=== PATIENT | male | born 1950 | race Caucasian/White ===

== ENCOUNTER 2023-01-08 06:34 | Emergency (ER) | payer OTHER, SELFPAY ==
[2023-01-08 07:07] VITALS: BP 222/133; PULSE 53; RESP 16; TEMP 36.6; O2SAT 99; BMI 26.9
--- NOTE | 2023-01-08 07:35 | W.ED.GENADLT ---
HPI - General Adult General: Chief complaint: General Medical Stated complaint: hasn't slept in 6 days Time Seen by Provider: 01/08/23 07:05 History of Present Illness: Presents to the ER with complaints of not sleeping in the last 6 days. Patient has been has Lyrica at this entire time. Patient usually gets it from mail order and it has not arrived yet. Patient is recently moved down here from [place]. Patient has had this happen before. He thinks he is on 50 mg or capsule. Review of Systems General: Reports: 10 or more systems reviewed and unremarkable except in HPI and below Physical Exam Const: COMMON NORMALS: no acute distress, average body habitus, patient oriented x3, no limitations, healthy appearing, alert and well nourished HENMT: COMMON NORMALS: normocephalic, atraumatic, hearing grossly normal bilaterally, external ears normal, Normal nasal mucous membranes and turbinates present and oropharynx normal HEAD & SCALP: normocephalic and atraumatic NOSE: Normal nasal mucous membranes and turbinates present EXTERNAL EAR: Yes external ears normal Eye: COMMON NORMALS: Equal, round and reactive pupils present, EOMs intact bilaterally, conjunctivae normal and no scleral icterus CONJUNCTIVA: Yes conjunctivae normal PUPIL: Yes Equal, round and reactive pupils present Neck/C-Spine: COMMON NORMALS: full ROM, no lymphadenopathy, supple, no meningeal signs, no JVD and Thyroid normal THYROID: Thyroid normal Chest: COMMONS NORMALS: normal inspection of the chest and normal palpation of entire chest wall Resp: COMMON NORMALS: normal respiratory effort, No retractions, No use of accessory muscles and clear to auscultation bilaterally AUSCULTATION: clear to auscultation bilaterally Cardio: COMMON NORMALS: no JVD, regular rate, regular rhythm, S1 normal heart sound present, S2 normal heart sound present, No gallops present (Cardio), No clicks present (Cardio) and No murmurs present (Cardio) RATE: regular rate RHYTHM: regular rhythm HEART SOUNDS: S1 normal heart sound present and S2 normal heart sound present GI: COMMON NORMALS: Normal to inspection, nondistended, normoactive bowel sounds present, Soft to palpation, non-tender, No hepatosplenomegaly present and no masses PALPATION: Yes Soft to palpation and Yes No hepatosplenomegaly present Neuro: COMMON NORMALS: patient oriented x3 SENSORIUM/ORIENTATION: Yes alert MENINGEAL SIGNS: Yes no meningeal signs Course Vital Signs: Vital signs: Vital Signs Temperature 97.9 F 01/08/23 07:07 Pulse Rate 53 L 01/08/23 07:07 Respiratory Rate 16 01/08/23 07:07 Blood Pressure 222/133 01/08/23 07:07 Pulse Oximetry 99 01/08/23 07:07 Oxygen Delivery Me thod Room Air 01/08/23 07:07 MDM - General Adult Medical Decision Making Presents to the ER with complaints of not sleeping in 6 days secondary to being out of his Lyrica. Patient says if he gets his Lyrica everything will be okay. Patient was extremely hypertensive at 222/133. Patient be given clonidine 0.2 and Lyrica 50 mg here in ER. Patient be discharged with a prescription for Lyrica for for the next 7 days 1 p.o. twice daily Differential Diagnosis Ran out of medicine. Hypertension Medical Records I reviewed the patient's medical records. Lab Data I reviewed the patient's lab results. Discharge Plan Discharge Patient Disposition: Home Clinical Impression: Medication refill, Hypertension Condition: Stable Prescriptions: New pregabalin [Lyrica] 50 mg capsule 50 mg PO BID Qty: 14 0RF Discharge Orders: Discharge ED (Routine); Ordered 01/08/23 Ordered By: Compa Jorge Patient Instructions: Medicine Refill (ED) Activity Restrictions/Additional Instructions: You have been provided 7 days worth of your Lyrica as a refill through the ER. This should get you by until your mail order comes in. Please follow-up with your family practice doctor for more refills as needed. Keep an eye on your blood pressure as it was extremely elevated in ER. Coding Level of Care Code ED Cooler Deliverer for Obey Ochoa
[2023-01-08 07:44] VITALS: PULSE 89; RESP 18; TEMP 36.6; O2SAT 96
[2023-01-08 07:56] VITALS: BP 212/98
[2023-01-08] MEDS: cloNIDine 0.1 mg Tablet 0.2 MG PO (07:56)
[2023-01-08] MEDS: pregabalin 50 mg Capsule PO (07:56)
[2023-01-08 08:02] VITALS: BP 171/83; PULSE 59; RESP 18; TEMP 36.6; O2SAT 96
== END 2023-01-08 08:05 | disposition home or self-care (01) ==
PROVIDERS: Emergency Provider Emergency Medicine
DX: Z76.0 Encounter for issue of repeat prescription (principal); I10 Essential (primary) hypertension
CPT/HCPCS: 99283

== ENCOUNTER 2023-03-09 09:54 | Outpatient (CLI) | payer MEDICARE, SELFPAY ==
--- NOTE | 2023-03-09 10:42 | XR_ITS ---
WS: [id number] Exam: XR lumbar spine f/e only [id number] Date/Time of Exam: 03/09/2023 10:43 AM Reason For Exam: Postlaminectomy No significant flexion or extension instability. Advanced disc degeneration at all levels with marked spondylosis. There are prominent posterior osteophytes at L4-5 and L5-S1 as well as L3-4. This might cause some spinal canal stenosis. Mild degenerative retrolisthesis of L3 on L4. Limited lumbar motio n in flexion and extension. Advanced facet arthropathy at L4-5 and L5-S1. Extensive aortoiliac athero sclerosis. IMPRESSION: 1. No fracture or instability identified. 2. Advanced degenerative changes and spondylosis. Posterior spondylosis may cause some spinal canal s tenosis at L3-4, L4-5 and L5-S1. 3. Minimal degenerative retrolisthesis of L3 on L4.
== END 2023-03-09 09:55 | disposition home or self-care (01) ==
LOC: RAD 09:59
PROVIDERS: Visit Provider Nurse Practitioner
DX: M47.817 Spondylosis without myelopathy or radiculopathy, lumbosacral region (principal); Z98.890 Other specified postprocedural states
CPT/HCPCS: 72120

== ENCOUNTER 2023-04-27 12:01 | Outpatient (CLI) | payer OTHER, SELFPAY ==
--- NOTE | 2023-04-27 12:13 | CTR_ITS ---
PROCEDURE INFORMATION: Exam: CT Chest Without Contrast; Diagnostic Exam date and time: 04/27/2023 12:44 PM Age: 72 years old Clinical indication: Abnormal findings; Abnormal radiologic exam of lung or chest; Patient HX: Follow up to a chest xray that he had at the [facility], didn't see a report on the xray, xray image and report unavailable; Additional info: Follow up on chest xray TECHNIQUE: Imaging protocol: Diagnostic computed tomography of the chest without contrast. Radiation optimization: All CT scans at this facility use at least one of these dose optimization techniques: automated exposure control; mA and/or kV adjustment per patient size (includes targeted exams where dose is matched to clinical indication); or iterative reconstruction. REPORTING DATA: Count of CT and Cardiac NM exams in prior 12 months: This patient has received 0 known CTs and 0 known cardiac nuclear medicine studies in the 12 months prior to the current study. COMPARISON: No relevant prior studies available. RADIATION DOSE METRICS: Total DLP (mGy-cm): 346.12 FINDINGS: Lungs: Bilobed solid nodular density in the right lung base measuring approximately 1.7 cm. Pleural spaces: Unremarkable. No pneumothorax. No pleural effusion. Heart: Unremarkable. No cardiomegaly. No pericardial effusion. Coronary arteries: Atherosclerotic change of the coronary arteries. Lymph nodes: Calcified mediastinal and hilar lymph nodes. Vasculature: Unremarkable. No aortic aneurysm. Bones/joints: Unremarkable. No acute fracture. Soft tissues: Unremarkable. Other findings: Scattered calcified granulomas CT/CT chest wo con [id number] IMPRESSION: 1. Bilobed solid nodular density in the right lung base measuring approximately 1.7 cm. 2. Findings consistent with healed granulomatous disease. For both low risk and high risk patients, consider CT Chest at 3 months, PET/CT, or biopsy. (Reference: Taylor) References: Taylor Yin, et al. Guidelines for Management of Incidental Pulmonary Nodules Detected on CT Images: From the Fleischner Society 2017. Radiology. 2017;284(1):228-243.
== END 2023-04-27 12:02 | disposition home or self-care (01) ==
LOC: RAD 12:02
PROVIDERS: Visit Provider Family Medicine
DX: R91.8 Other nonspecific abnormal finding of lung field (principal)
CPT/HCPCS: 71250

== ENCOUNTER 2023-05-06 13:35 | Emergency (ER) | payer OTHER, SELFPAY ==
[2023-05-06 13:53] VITALS: BP 134/87; PULSE 72; RESP 17; O2SAT 98; BMI 28.2
--- NOTE | 2023-05-06 13:55 | ED_ITS ---
HPI - General Adult General: Chief complaint: Urogenital-Male Stated complaint: lump on left leg Time Seen by Provider: 05/06/23 13:52 Source: patient Mode of arrival: ambulatory History of Present Illness: 72-year-old male presents emergency room with complaint of pain to the perineal area or near the scrotum he has a swelling lump there as well. Denies fever sweats or chills no drainage. Onset (ago): day(s) Associated symptoms: Deny chest pain, dyspnea or rash Review of Systems Const: Denies: fever(s) or chills Card: Denies: chest pain Resp: Denies: dyspnea GI: Denies: abdominal pain : Denies: dysuria, urinary frequency or urinary urgency Musc: Denies: neck pain or back pain Skin/Breast: Denies: rash Physical Exam Const: GENERAL APPEARANCE: cooperative and comfortable ORIENTATION/CO NSCIOUSNESS: Yes awake, Yes oriented to person, Yes oriented to place and Yes oriented to time HENMT: COMMON NORMALS: normocephalic, atraumatic and hearing grossly normal bilaterally HEAD & SCALP: normocephalic and atraumatic Resp: COMMON NORMALS: normal respiratory effort, No retractions, No use of accessory muscles and clear to auscultation bilaterally AUSCULTATION: clear to auscultation bilaterally Cardio: COMMON NORMALS: regular rate, regular rhythm and No murmurs present (Cardio) RATE: regular rate RHYTHM: regular rhythm GI: COMMON NORMALS: Soft to palpation and No hepatosplenomegaly present AUSCULTATION: Yes normoactive bowel sounds PALPATION: Yes Soft to palpation, No Tenderness to palpation present (GI), No Guarding due to palpation present (GI) and Yes No hepatosplenomegaly present : COMMON NORMALS: Yes no CVA tenderness BLADDER/KIDNEY EXAM: Yes no CVA tenderness OTHER: Palpable perineal abscess no drainage no pointing. Tender to touch does not involve the scrotum. Back/Pelvis: COMMON NORMALS: no CVA tenderness Extremity: COMMON NORMALS: normal to inspection, capillary refill normal, no clubbing, cyanosis or edema, no calf tenderness and no pedal edema Neuro: SENSORIUM/ORIENTATION: Yes oriented to person, Yes oriented to place and Yes oriented to time Skin: COMMON NORMALS: no rashes or lesions noted GENERAL SKIN EXAM: no rashes or lesions noted Course Vital Signs: Vital signs: Vital Signs Pulse Rate 72 05/06/23 13:53 Respiratory Rate 17 05/06/23 13:53 Blood Pressure 134/87 05/06/23 13:53 Pulse Oximetry 98 05/06/23 13:53 Oxygen Delivery Me thod Room Air 05/06/23 13:53 MDM - General Adult Medical Decision Making Localized early abscess with appearance of phlegmon on ultrasound. Discussed bedside drainage versus referral to surgery patient would prefer referral to surgery give pain medication started on antibiotics Case management to refer to surgery return if has further problems or develops fever increased pain or swelling. Medical Records I reviewed the patient's medical records. Lab Data I reviewed the patient's lab results. 05/06/23 14:05 Laboratory Results WBC 6.70 10^3/uL (3.29-11.43) 05/06/23 14:05 RBC 4.01 10^6/uL (3.85-5.65) 05/06/23 14:05 Hgb 12.40 g/dL (11.27-16.99) 05/06/23 14:05 Hct 38.3 % (37-53) 05/06/23 14:05 MCV 95.5 fl (82-101) 05/06/23 14:05 MCH 30.9 pg (27-33) 05/06/23 14:05 MCHC 32.4 g/dL (30-55) 05/06/23 14:05 RDW 14.0 % (12.1-15.1) 05/06/23 14:05 Plt Count 221 10^3/cmm (157-399) 05/06/23 14:05 MPV 9.9 fL (7.4-10.4) 05/06/23 14:05 Neut % (Auto) 69.3 % 05/06/23 14:05 Lymph % (Auto) 18.7 % 05/06/23 14:05 Clinch % (Auto) 8.8 % 05/06/23 14:05 Eos % (Auto) 2.4 % 05/06/23 14:05 Baso % (Auto) 0.7 % 05/06/23 14:05 Neut # (Auto) 4.64 10^3/uL (1.8-7.7) 05/06/23 14:05 Lymph # (Auto) 1.3 10^3/uL (0.8-4.8) 05/06/23 14:05 Clinch # (Auto) 0.6 10^3/uL (0.2-0.9) 05/06/23 14:05 Eos # (Auto) 0.2 10^3/uL (0.0-0.8) 05/06/23 14:05 Baso # (Auto) 0.1 10^3/uL (0.0-0.1) 05/06/23 14:05 Nucleated RBC % (auto) 0 % 05/06/23 14:05 Nucleated RBCs # 0.0 /100WBC 05/06/23 14:05 All radiology interpretation(s) finalized by discharge Discharge Plan Discharge Patient Disposition: Home Clinical Impression: Abscess or cellulitis of perineum Condition: Stable Prescriptions: New Bactrim DS 800-160 mg tablet 1 tab PO BID Qty: 20 0RF hydrocodone-acetaminophen 5-325 mg tablet 1 tab PO Q6H PRN (Reason: pain) Qty: 10 0RF No Action Lyrica 50 mg capsule 50 mg PO BID Qty: 14 0RF Discharge Orders: Discharge ED (Routine); Ordered 05/06/23 Ordered By: Paramjit Whitlock Referrals: Mary Sahu MD [Primary Care Provider] - Discharge Diet: Usual diet Discharge Activity: Resume usual activity Patient Instructions: Opioid Safety, Pain Management Activity Restrictions/Additional Instructions: Thank you for choosing [facility] for your healthcare needs today. Please realize this is an emergency room and that we are providing you with a medical screening exam and this may not be complete and all inclusive of all the testing and or work up that you may need to determine your ailment or severity of your illness. It is very important that you follow up as instructed or that you return to the Emergency Department should you have concerns or if your condition changes or worsens in any way. Case management make arrangements for you to follow-up with general surgery for possible incision and drainage next week. Coding Level of Care Code ED Button Riveter for Obey Ochoa
--- NOTE | 2023-05-06 13:58 | US_ITS ---
WS: [id number] ULTRASOUND SOFT TISSUES RIGHT perineum. HISTORY: groin abscess COMPARISON: None available. TECHNIQUE: 2-D and color Doppler imaging is submitted. Palpable mass along the RIGHT perineum. There is a complex mass which is ill formed corresponding to the palpable area. Low-level echoes and mobile debris. Thick wall mass measures 3.0 x 1.3 x 2.2 cm. T here is very minimal increased vascularity surrounding the mass. IMPRESSION: Phlegmonous collection measuring 3.0 x 1.3 x 2.2 cm associated with the palpable area in the RIGHT pe rineum. Consistent with developing abscess.
[2023-05-06 14:22] LABS: Basophils # 0.1 10^3/uL (0.0-0.1); Basophils % 0.7 %; Eosinophils # 0.2 10^3/uL (0.0-0.8); Eosinophils % 2.4 %; Hematocrit 38.3 % (37-53); Lymphocytes # 1.3 10^3/uL (0.8-4.8); Lymphocytes % 18.7 %; Mean Corpuscular HGB Conc 32.4 g/dL (30-55); Mean Corpuscular Hemoglobin 30.9 pg (27-33); Mean Corpuscular Volume 95.5 fl (82-101); Mean Platelet Volume 9.9 fL (7.4-10.4); Monocytes # 0.6 10^3/uL (0.2-0.9); Monocytes % 8.8 %; Neutrophils # 4.64 10^3/uL (1.8-7.7); Neutrophils % 69.3 %; Nucleated Red Blood Cells % 0 %; Platelet Count 221 10^3/cmm (157-399); Red Blood Count 4.01 10^6/uL (3.85-5.65)
--- NOTE | 2023-05-06 16:37 | DCPLANNER ---
Referral was sent to general surgery on 05/06/23 at 1637. Clinic to contact patient
== END 2023-05-06 16:05 | disposition home or self-care (01) ==
PROVIDERS: Emergency Provider Family Medicine; PCP Family Medicine
DX: L02.215 Cutaneous abscess of perineum (principal); L03.315 Cellulitis of perineum
CPT/HCPCS: 36415; 76882; 85025; 87040; 99284

== ENCOUNTER 2023-06-15 08:21 | Outpatient (CLI) | payer OTHER, SELFPAY ==
--- NOTE | 2023-06-15 08:25 | US_ITS ---
WS: [id number] SCROTAL ULTRASOUND EXAMINATION CLINICAL INFORMATION: L SIDED CYST COMPARISON: None. FINDINGS: TESTES Normal in size and echotexture, without focal lesion. Color Doppler: Normal color Doppler flow pattern. Right testes size: 4.0 cm x 2.1 cm x 2.2 cm. Left testes size: 3.3 cm x 2.2 cm x 2.8 cm. EPIDIDYMIDES Color Doppler: Normal color Doppler flow pattern. Right epididymis size: 1.1 cm x 1.6 cm x 0.8 cm. Left epididymis size: 1.0 cm x 1.6 cm x 0.9 cm. HYDROCELE Small bilateral hydroceles. VARICOCELE None. OTHER FINDINGS Small RIGHT spermatocele. IMPRESSION: 1. No visualized left-sided mass or cyst. 2. Small bilateral hydroceles. 3. Small RIGHT spermatocele measuring 7.1 x 4.4 mm. 4. No other suspicious findings.
== END 2023-06-15 08:22 | disposition home or self-care (01) ==
LOC: RAD 08:21
PROVIDERS: PCP Family Medicine; Visit Provider Family Medicine
DX: N43.41 Spermatocele of epididymis, single (principal)
CPT/HCPCS: 76870

== ENCOUNTER 2023-07-23 09:04 | Emergency (ER) | payer OTHER, SELFPAY ==
[2023-07-23 09:12] VITALS: BP 153/71; PULSE 68; RESP 18; TEMP 36.7; O2SAT 97; BMI 26.3
[2023-07-23] MEDS: ketorolac 30 mg/mL INJ IVP (09:38)
[2023-07-23 09:52] LABS: Basophils # 0.1 10^3/uL (0.0-0.1); Basophils % 0.9 %; Eosinophils # 0.2 10^3/uL (0.0-0.8); Eosinophils % 3.1 %; Hematocrit 43.2 % (37-53); Lymphocytes # 1.5 10^3/uL (0.8-4.8); Lymphocytes % 25.4 %; Mean Corpuscular HGB Conc 32.4 g/dL (30-55); Mean Corpuscular Hemoglobin 30.7 pg (27-33); Mean Corpuscular Volume 94.7 fl (82-101); Monocytes # 0.4 10^3/uL (0.2-0.9); Monocytes % 7.7 %; Neutrophils % 62.7 %; Nucleated Red Blood Cells % 0 %; Platelet Count 208 10^3/cmm (157-399); Red Blood Count 4.56 10^6/uL (3.85-5.65); White Blood Count 5.74 10^3/uL (3.29-11.43)
[2023-07-23 10:00] VITALS: BP 123/63; PULSE 57; O2SAT 96
[2023-07-23 10:01] LABS: Add Urine Microscopic? NO; Charge for UA Resulting for Rev
[2023-07-23 10:11] LABS: Bilirubin Urine Neg (Negative); Blood Urine Neg (Negative); Glucose Urine UA Norm (Normal); Ketones Urine Negative (Negative); Leukocyte Esterase Urine Negative (Negative); Nitrate Urine Negative (Negative); Protein Urine Neg (Negative); Specific Gravity, Urine 1.005 (1.005-1.030); Urine Appearance Clear (CLEAR); Urine Color Yellow (Yellow); Urobilinogen Urine Norm (Negative); pH Urine 7 (5-7)
[2023-07-23 10:14] LABS: Alanine Aminotransferase 11 U/L (0-41); Alkaline Phosphatase 114 U/L (40-130); Anion Gap 13.6 (5-19); Aspartate Amino Transferase 15 U/L (0-40); Blood Urea Nitrogen 13 mg/dL (8-23); Calcium 9.6 mg/dL (8.5-10.5); Carbon Dioxide 28 mmol/L (22-29); Chloride 107 mmol/L (98-107); Globulin 2.6 g/dL (1.3-4.6); Glucose 77 mg/dL (65-115); Osmolality Calculated 297 mOsm/kg (285-295); Potassium 4.6 mmol/L (3.5-5.1); Sodium 144 mmol/L (136-145); Total Bilirubin 0.4 mg/dL (0.15-1.2); Total Protein 6.6 g/dL (6.6-8.7)
[2023-07-23 10:18] LABS: Procalcitonin 0.03 ng/mL (0-0.5)
[2023-07-23 10:30] VITALS: BP 144/71; PULSE 53; O2SAT 96
--- NOTE | 2023-07-23 10:40 | PC.PHAR ---
PT IS [facility] BUT DOES CARRY HIS MEDICATIONS WITH HIM EXCEPT THE OXYCODONE 10 MG TWICE DAILY. HE LEAVES IT AT HOME. 07/23/23
--- NOTE | 2023-07-23 10:49 | CTR_ITS ---
PROCEDURE INFORMATION: Exam: CT Abdomen And Pelvis With Contrast Exam date and time: 07/23/2023 11:08 AM Age: 72 years old Clinical indication: Abdominal pain; Localized; Right lower quadrant (rlq); Prior surgery; Surgery date: 6+ months; Surgery type: Gb heart hernia; Additional info: Low back pain/abd pain TECHNIQUE: Imaging protocol: Computed tomography of the abdomen and pelvis with contrast. Radiation optimization: All CT scans at this facility use at least one of these dose optimization techniques: automated exposure control; mA and/or kV adjustment per patient size (includes targeted exams where dose is matched to clinical indication); or iterative reconstruction. Contrast material: OMNI 350; Contrast volume: 100 ml; Contrast route: INTRAVENOUS (IV); COMPARISON: US scrotum [id number] 06/15/2023 8:45 AM RADIATION DOSE METRICS: Total DLP (mGy-cm): 496.07 FINDINGS: Lungs: Unchanged right fissural pulmonary nodule. Liver: Tiny hepatic hypodensities too small to characterize. Gallbladder and bile ducts: Cholecystectomy. Pancreas: No ductal dilation. Spleen: No splenomegaly. Adrenal glands: No mass. Kidneys and ureters: No stones or hydronephrosis. Stomach and bowel: No obstruction. Appendix: Normal appendix. Intraperitoneal space: No free air. No significant fluid collection. Vasculature: No abdominal aortic aneurysm. Lymph nodes: No enlarged lymph nodes. Urinary bladder: Incompletely distended. Reproductive: No acute findings. Bones/joints: Severe spinal degenerative changes without acute findings. Soft tissues: Prior ventral hernia repair. CT/CT abdomen pelvis w con* [id number] IMPRESSION: No acute abdominal findings.
--- NOTE | 2023-07-23 10:49 | W.ED.BACK ---
HPI - Back Pain/Injury General: Chief Complaint: Back Pain/Injury Stated Complaint: right side back pain Time Seen by Provider: 07/23/23 09:06 History of Present Illness: 72-year-old male presents emergency department with complaints of right-sided back pain. He states the pain is sharp and comes at random times without provocation. Patient states that he has an extensive history of back surgery and states that this pain has been ongoing for the previous 1 and half months. He states that he does have an appointment with his primary care provider in 3 days but states the pain is a 8 out of 10 and intolerable. He denies paresthesias or paralysis. He states that he does take oxycodone as well as Lyrica and baclofen for his chronic back pain. He denies weakness to the lower extremities. He denies known recent injury or trauma. Review of Systems General: Reports: 10 or more systems reviewed and unremarkable except in HPI and below Musc: Reports: back pain Physical Exam Narrative: EXAM NARRATIVE: Constitutional: the patient appears well nourished and with normal development. Vital signs reviewed as documented. HENMT: Normocephalic, atraumatic. External ears normal appearance without drainage. Nose without drainage, normal appearance. Mucus membranes moist. Neck is supple, No jugular venous distension, trachea is midline, no appreciable carotid bruits. No lymphadenopathy. No meningeal signs. Flexion, extension and lateral rotation is without pain. Eyes: Pupils are equal, round, reactive to light and accommodation. No scleral icterus. Extra-ocular movement are intact. Thorax is symmetrical and with equal rise and fall with respirations. Resp: Lungs are clear to auscultation. No wheezes, rales, crackles or ronchi at present. Cardio: Regular rate and rhythm. Positive S1, S2. No appreciable murmurs, rubs or gallops. GI: Abdominal exam reveals normal bowel sounds to all quadrants. No organomegaly. No obvious palpable masses noted. No hepatomegally appreciated. Soft, non-tender to palpation. Extremity: Extremities are non-edematous and both femoral and pedal pulses are 2+ and equal bilaterally. Moves all extremities well, sensation in all extremities. Neuro: Alert and oriented x4, person, place, time and situation. Cranial nerves II through XII are grossly intact, there is no focal neurological deficits that I can appreciate at present. Motor strength in the upper and lower extremities are equal and bilateral 5/5. Psych: Cooperative, calm, normal thought process, appropriate judgment. Skin: No lesions, rashes. No gross abnormalities noted. Back: Symmetrical, no obvious deformity, No CVA tenderness Course Reevaluation(s): Reevaluation #1: I discussed the laboratory and radiographic findings with the patient I reevaluated him after he received Toradol pain medication he stated he had improved pain control. Did advise him to follow-up with his primary care provider as scheduled. Time: 12:28 Vital Signs: Vital signs: Vital Signs Temperature 98.1 F 07/23/23 09:12 Pulse Rate 58 L 07/23/23 12:30 Respiratory Rate 18 07/23/23 09:12 Blood Pressure 128/57 07/23/23 12:30 Pulse Oximetry 98 07/23/23 12:30 Oxygen Delivery Me thod Room Air 07/23/23 12:30 MDM - Back Pain/Injury Medical Decision Making 72-year-old male with a past medical history of chronic back pain who presents today with worsening back pain and right flank pain. I will obtain a CBC, CMP radiographic examination to include a CT scan given the patient's chronic back pain and multiple back surgeries. Differential diagnosis includes chronic back pain, osteoarthritis, musculoskeletal strain, paraspinal abscess, pyelonephritis, renal calculi, UTI. Medical Records I reviewed the patient's medical records. Labs I reviewed the patient's lab results. 07/23/23 09:40 07/23/23 09:40 Radiology Impressions Abdomen/Pelvis CT 07/23/23 10:49 IMPRESSION: No acute abdominal findings. Laboratory Results WBC 5.74 10^3/uL (3.29-11.43) 07/23/23 09:40 RBC 4.56 10^6/uL (3.85-5.65) 07/23/23 09:40 Hgb 14.00 g/dL (11.27-16.99) 07/23/23 09:40 Hct 43.2 % (37-53) 07/23/23 09:40 MCV 94.7 fl (82-101) 07/23/23 09:40 MCH 30.7 pg (27-33) 07/23/23 09:40 MCHC 32.4 g/dL (30-55) 07/23/23 09:40 RDW 14.0 % (12.1-15.1) 07/23/23 09:40 Plt Count 208 10^3/cmm (157-399) 07/23/23 09:40 MPV 10.0 fL (7.4-10.4) 07/23/23 09:40 Neut % (Auto) 62.7 % 07/23/23 09:40 Lymph % (Auto) 25.4 % 07/23/23 09:40 [place] % (Auto) 7.7 % 07/23/23 09:40 Eos % (Auto) 3.1 % 07/23/23 09:40 Baso % (Auto) 0.9 % 07/23/23 09:40 Neut # (Auto) 3.60 10^3/uL (1.8-7.7) 07/23/23 09:40 Lymph # (Auto) 1.5 10^3/uL (0.8-4.8) 07/23/23 09:40 [place] # (Auto) 0.4 10^3/uL (0.2-0.9) 07/23/23 09:40 Eos # (Auto) 0.2 10^3/uL (0.0-0.8) 07/23/23 09:40 Baso # (Auto) 0.1 10^3/uL (0.0-0.1) 07/23/23 09:40 Nucleated RBC % (auto) 0 % 07/23/23 09:40 Nucleated RBCs # 0.0 /100WBC 07/23/23 09:40 Sodium 144 mmol/L (136-145) 07/23/23 09:40 Potassium 4.6 mmol/L (3.5-5.1) 07/23/23 09:40 Chloride 107 mmol/L (98-107) 07/23/23 09:40 Carbon Dioxide 28 mmol/L (22-29) 07/23/23 09:40 Anion Gap 13.6 (5-19) 07/23/23 09:40 BUN 13 mg/dL (8-23) 07/23/23 09:40 Creatinine 0.7 mg/dL (0.7-1.2) 07/23/23 09:40 GFR Calculation Not Reportable 07/23/23 09:40 Glucose 77 mg/dL (65-115) 07/23/23 09:40 Calculated Osmolality 297 mOsm/kg (285-295) H 07/23/23 09:40 Calcium 9.6 mg/dL (8.5-10.5) 07/23/23 09:40 Total Bilirubin 0.4 mg/dL (0.15-1.2) 07/23/23 09:40 AST 15 U/L (0-40) 07/23/23 09:40 ALT 11 U/L (0-41) 07/23/23 09:40 Alkaline Phosphatase 114 U/L (40-130) 07/23/23 09:40 Total Protein 6.6 g/dL (6.6-8.7) 07/23/23 09:40 Albumin 4.0 g/dL (3.5-5.2) 07/23/23 09:40 Globulin 2.6 g/dL (1.3-4.6) 07/23/23 09:40 Procalcitonin 0.03 ng/mL (0-0.5) 07/23/23 09:40 Urine Color Yellow (Yellow) 07/23/23 09:40 Urine Appearance Clear (CLEAR) 07/23/23 09:40 Urine pH 7 (5-7) 07/23/23 09:40 Ur Specific [place] 1.005 (1.005-1.030) 07/23/23 09:40 Urine Protein Neg (Negative) 07/23/23 09:40 Urine Glucose (UA) Norm (Normal) 07/23/23 09:40 Urine Ketones Negative (Negative) 07/23/23 09:40 Urine Blood Neg (Negative) 07/23/23 09:40 Urine Nitrate Negative (Negative) 07/23/23 09:40 Urine Bilirubin Neg (Negative) 07/23/23 09:40 Urine Urobilinogen Norm mg/dL (Negative) 07/23/23 09:40 Ur Leukocyte Esterase Negative (Negative) 07/23/23 09:40 All radiology interpretation(s) finalized by discharge Discharge Plan Discharge Patient Disposition: Home Clinical Impression: Strain of lumbar region Qualifiers: Encounter type: initial encounter Qualified Code(s): S39.012A - Strain of muscle, fascia and tendon of lower back, initial encounter Chronic back pain Qualifiers: Back pain location: low back pain Back pain laterality: unspecified Sciatica presence: without sciatica Qualified Code(s): M54.50 - Low back pain, unspecified Condition: Stable Prescriptions: No Action cilostazol 100 mg Tablet 100 mg PO BID atorvastatin 80 mg Tablet 80 mg PO QPM senna 8.6 mg Tablet 8.6 mg PO DAILY carvedilol 6.25 mg Tablet 3.125 mg PO BID Rx Instructions: must administer with a meal/food lisinopril 20 mg Tablet 30 mg PO DAILY clopidogrel 75 mg Tablet 75 mg PO DAILY baclofen 10 mg Tablet 10 mg PO TID PRN (Reason: Muscle Spasm) pantoprazole 40 mg Tablet,Delayed Release (Dr/Ec) 40 mg PO QAM ferrous sulfate 325 mg (65 mg iron) Tablet 162.5 mg PO QAM Colace 100 mg Capsule 100 mg PO BID Lyrica 75 mg capsule 75 mg PO BID cholecalciferol (vitamin D3) 25 mcg (1,000 unit) Tablet 25 mcg PO DAILY oxycodone 10 mg tablet 10 mg PO BID Discharge Orders: Discharge ED (Routine); Ordered 07/23/23 Ordered By: Raúl Giron Referrals: Mary Sahu MD [Primary Care Provider] - Discharge Diet: Advance as tolerated Discharge Activity: Resume usual activity Patient Instructions: Opioid Safety, Pain Management Activity Restrictions/Additional Instructions: Activity Restrictions/Additional Instructions: Thank you for choosing [facility] for your healthcare needs today. Please realize that you were seen in the Emergency Department and that we are providing you with an emergency medical screening exam and this may not be a complete and all inclusive of all the testing and or medical work-up that you may need to determine your ailment or severity of your illness. It is very important that you follow-up as instructed with your Primary care provider or Specialist for additional evaluation and to discuss your medical treatment plan. You may return to the Emergency Department should you have concerns or if your condition changes or worsens in any way. Coding Level of Care Code ED Care Services Manager for Obey Ochoa
[2023-07-23 11:00] VITALS: BP 143/59; PULSE 52; O2SAT 95
[2023-07-23] MEDS: iohexol 350 mg/mL 500 mL Btl (per mL) IV (11:11)
[2023-07-23 11:30] VITALS: BP 139/75; PULSE 61; O2SAT 96
[2023-07-23 12:30] VITALS: BP 128/57; PULSE 58; O2SAT 98
== END 2023-07-23 12:49 | disposition home or self-care (01) ==
PROVIDERS: Emergency Provider Internal Medicine; PCP Family Medicine
DX: S39.012A Strain of muscle, fascia and tendon of lower back, initial encounter (principal); G89.29 Other chronic pain; Z79.02 Long term (current) use of antithrombotics/antiplatelets; X58.XXXA Exposure to other specified factors, initial encounter
CPT/HCPCS: 74177; 80053; 81003; 84145; 85025; 96374; 99285; J1885; Q9967

== ENCOUNTER 2023-08-01 10:41 | Outpatient (CLI) | payer OTHER, SELFPAY ==
--- NOTE | 2023-08-01 10:46 | CT_ITS ---
WS: [id number] CT chest w con* [id number] HISTORY: BILOBED SOLID NODULAR DENSITIES IN R LUNG BASE 1.7 CM TECHNIQUE: Axial imaging performed through the thorax. Coronal and sagittal reformats are submitted. All CT scans at [facility] use at least one of these dose optimization techniques: automated exposure control; mA and/or kV adjustment per patient size (includes targeted exams where dose is mat ched to clinical indication); or iterative reconstruction. CONTRAST: Omnipaque 350; 100 mL IV. DLP: 319.91 mGy.cm COMPARISON: 04/27/2023 Lungs and central airway: Reidentified is a lobulated pulmonary nodule in the RIGHT lower lobe abutti ng the fissure. Nodule measures 14 x 9 x 10 mm and is unchanged since 04/27/2023. No new or additional mass or nodule. No pneumonia. Pleura: Normal. No pleural effusion. Heart and pericardium: Normal size heart with no pericardial effusion. Mediastinum and amanda: Small mediastinal and hilar lymph nodes. No adenopathy. Vessels: Moderate atherosclerosis thoracic aorta. Normal sized pulmonary artery. Chest wall and lower neck: Prior ORIF proximal LEFT humerus. Prior CABG. Upper abdomen: Tricuspid regurgitation into the hepatic vein. Prior cholecystectomy. No adrenal mass. Osseous structures: Moderate thoracic spondylosis. IMPRESSION: 1. No change in the lobulated nodule RIGHT lower lobe extending into the fusion. Nodule measures 14 x 9 x 10 mm. Recommend 6 to 12-month chest CT follow-up. 2. No adenopathy. 3. Prior CABG. 4. Moderate atherosclerosis aorta. 5. Prior cholecystectomy.
[2023-08-01] MEDS: iohexol 350 mg/mL 500 mL Btl (per mL) IV (11:22)
== END 2023-08-01 10:42 | disposition home or self-care (01) ==
LOC: RAD 10:41
PROVIDERS: PCP Family Medicine; Visit Provider Family Medicine
DX: R91.1 Solitary pulmonary nodule (principal); Z95.1 Presence of aortocoronary bypass graft; I70.0 Atherosclerosis of aorta; Z90.49 Acquired absence of other specified parts of digestive tract
CPT/HCPCS: 71260; Q9967

== ENCOUNTER 2023-09-02 12:46 | Outpatient (CLI) | payer SELFPAY ==
--- NOTE | 2023-09-02 12:53 | MR_ITS ---
WS: [id number] MRI LUMBAR SPINE NONCONTRAST HISTORY: SEVERE ARTHRITIS/LUMBAR RADICULOPATHY COMPARISON: CT lumbar spine 07/23/2014 TECHNIQUE: Sagittal and axial multisequence imaging is submitted. Straightening of the normal lumbar lordosis. Severe disc disease at all levels with osteochondrosis. Retrolisthesis of L2 and L3. Most significant retrolisthesis at L3 by 5.0 cm. Marked diffuse osteophy tic ridging. No acute marrow edema or acute fracture. Conus terminates normally at L1-2 disc level. L1-L2: Diffuse osteophytic ridging and disc bulging. Mild facet arthritis. Moderate bilateral foramin al stenosis. Very mild subarticular recess encroachment. L2-L3: Severe osteophytic ridging with annular disc bulging, ligamentum flavum and facet arthritis. C entral disc osteophyte complex extends inferior to the disc level. Severe central, bilateral subartic ular recess and foraminal stenosis. L3-L4: Marked osteophytic ridging, annular disc bulging, ligamentum flavum and facet arthritis. Sever e central, bilateral subarticular recess and foraminal stenosis. Greater stenosis on the LEFT than th e RIGHT. L4-L5: Marked annular disc bulging, osteophytic ridging, facet and ligamentum flavum hypertrophy. Sev ere central, bilateral subarticular recess and foraminal stenosis. Large facet osteophyte encroaches upon the RIGHT lateral thecal sac. L5-S1: Large posterior laminectomy defect. No central stenosis. Osteophytic ridging and annular disc bulging and facet arthritis. Disc osteophyte encroaches and contacts the LEFT S1 nerve root. Severe b ilateral foraminal stenosis due to disc protrusions, osteophyte and facet disease. IMPRESSION: 1. 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 Stenoses due to combination of disc, osteophytosis and facet and ligamentum flavu m disease. 2. Retrolisthesis of L2 and L3. 3. L2-3: Severe central, bilateral subarticular recess and foraminal stenosis. 4. L3-4: Severe central and bilateral subarticular recess and foraminal stenosis. 5. L4-5: Severe central and bilateral subarticular recess and foraminal stenosis. There is an additi onal large facet osteophyte encroaching upon the RIGHT lateral thecal sac. 6. L5-S1: Large posterior laminectomy defect. Severe bilateral foraminal stenosis due to disc and os teophyte and facet disease.
--- NOTE | 2023-09-02 12:53 | MR_ITS ---
WS: [id number] MRI CERVICAL SPINE NONCONTRAST HISTORY: CERVICAL RADICULOPATHY, multiple prior surgeries. No prior MRIs. COMPARISON: None available. Technique: Multiplanar, multisequence noncontrast imaging of the cervical spine. Straightening and slight reversal of the normal cervical lordosis. Severe multilevel degenerative dis c disease. Large posterior laminectomy defect from C3-C6. C4-5 fusion appears intact and complete. C3 retrolisthesis by 3 mm. Loss of disc space at C7-T1, disc may be completely fused. Severe disc narro wing at C5-6. Multifocal areas of increased T2 signal throughout the cervical cord. Suspect this is a combination o f syrinx and myelomalacia. Fluid in the central cord extends over a length of 5.1 cm. More focal smud gy area measuring 5.6 mm in the posterior cervical cord at C3-4 may be myelomalacia. There is thinnin g of the cord at C4-5. Mild narrowing at the craniocervical junction with anterior displacement of the cervical cord due to facet and foramen magnum arthropathy. C2-C3: Mild annular disc bulging and facet arthritis. Mild bilateral foraminal narrowing. C3-C4: Diffuse osteophytic ridging, disc bulging and facet arthritis. Mild central stenosis with sneha re foraminal stenosis. Posterior laminectomy defect. C4-C5: Osteophytic ridging and facet arthritis. Severe bilateral foraminal stenosis. C5-C6: Marked annular disc bulging, osteophytic ridging. Central disc osteophyte. Moderate central wi th severe bilateral foraminal stenosis. Posterior laminectomy defect. C6-C7: Moderate central and bilateral foraminal stenosis with marked facet arthritis. C7-T1: Osteophytic ridging. Mild central with severe bilateral foraminal stenosis. Paraspinal soft tissue are normal. IMPRESSION: 1. Severe cervical spondylosis. Large posterior laminectomy defect from C3-C6. 2. Cord atrophy at C4-C5. Multifocal syrinx extends over a length of 5.1 cm. The additional focal my elomalacia at C3-4. 3. Severe bilateral foraminal stenosis at C3-4, C4-5, C5-6 and C7-T1, moderate at C6-7. 4. Mild bilateral foraminal stenosis at C2-3. 5. Moderate size central disc osteophyte at C5-6 encroaching upon the ventral thecal sac causing mod erate central stenosis. 6. Moderate central stenosis at C6-7.
== END 2023-09-02 12:47 | disposition home or self-care (01) ==
LOC: RAD 12:46
PROVIDERS: PCP Family Medicine; Visit Provider Family Medicine
DX: M47.27 Other spondylosis with radiculopathy, lumbosacral region (principal); M51.17 Intervertebral disc disorders with radiculopathy, lumbosacral region; M48.07 Spinal stenosis, lumbosacral region; M25.78 Osteophyte, vertebrae; M50.322 Other cervical disc degeneration at C5-C6 level; M48.02 Spinal stenosis, cervical region; M47.813 Spondylosis without myelopathy or radiculopathy, cervicothoracic region
CPT/HCPCS: 72141; 72148

== ENCOUNTER 2023-10-02 12:17 | Emergency (ER) | payer OTHER, SELFPAY ==
[2023-10-02 12:19] VITALS: BP 102/61; PULSE 56; RESP 18; TEMP 36.4; O2SAT 95; BMI 25.8
--- NOTE | 2023-10-02 12:29 | ED_ITS ---
HPI - General Adult General: Chief complaint: General Medical Stated complaint: dressing change Time Seen by Provider: 10/02/23 12:26 Source: patient Mode of arrival: ambulatory Limitations: no limitations History of Present Illness: 72-year-old male who had a groin abscess drained on Tuesday at [place] by urology he states he is here for dressing change he states he has not had dressing changed yet he is supposed to be he said [facility] but have not yet he denies any fever denies any pain down there Associated symptoms: Deny chest pain, dyspnea, nausea, rash or vomiting Review of Systems Const: Denies: fever(s) or chills ENMT: Denies: throat pain or dental pain Card: Denies: chest pain Resp: Denies: dyspnea GI: Denies: abdominal pain, nausea, vomiting or diarrhea Musc: Denies: neck pain or back pain Skin/Breast: Denies: rash Physical Exam Const: COMMON NORMALS: no acute distress, patient oriented x3 and healthy appearing HENMT: COMMON NORMALS: normocephalic and atraumatic HEAD & SCALP: normocephalic and atraumatic Neck/C-Spine: COMMON NORMALS: full ROM and supple Chest: COMMONS NORMALS: normal inspection of the chest Resp: COMMON NORMALS: normal respiratory effort Cardio: COMMON NORMALS: regular rate RATE: regular rate : OTHER: Incision groins clean dry intact no erythema Extremity: COMMON NORMALS: normal to inspection and full ROM Neuro: COMMON NORMALS: patient oriented x3, moves all extremities and no focal motor deficits Psych: COMMON NORMALS: mental status grossly normal, Normal thought process present and cooperative THOUGHT PROCESS: Normal thought process present Skin: COMMON NORMALS: no rashes or lesions noted and no wounds GENERAL SKIN EXAM: no rashes or lesions noted Course Vital Signs: Vital signs: Vital Signs Temperature 97.5 F L 10/02/23 12:19 Pulse Rate 56 L 10/02/23 12:19 Respiratory Rate 18 10/02/23 12:19 Blood Pressure 102/61 10/02/23 12:19 Pulse Oximetry 95 10/02/23 12:19 Oxygen Delivery Me thod Room Air 10/02/23 12:19 MDM - General Adult Medical Decision Making Patient presents here with dressing change we did change his dressing wounds well-appearing stable for discharge follow-up as scheduled Medical Records I reviewed the patient's medical records. No radiology studies performed this visit Discharge Plan Discharge Patient Disposition: Home Clinical Impression: Change of dressing Condition: Stable Prescriptions: No Action cilostazol 100 mg Tablet 100 mg PO BID atorvastatin 80 mg Tablet 80 mg PO QPM senna 8.6 mg Tablet 8.6 mg PO DAILY carvedilol 6.25 mg Tablet 3.125 mg PO BID Rx Instructions: must administer with a meal/food lisinopril 20 mg Tablet 30 mg PO DAILY clopidogrel 75 mg Tablet 75 mg PO DAILY baclofen 10 mg Tablet 10 mg PO TID PRN (Reason: Muscle Spasm) pantoprazole 40 mg Tablet,Delayed Release (Dr/Ec) 40 mg PO QAM ferrous sulfate 325 mg (65 mg iron) Tablet 162.5 mg PO QAM Colace 100 mg Capsule 100 mg PO BID pregabalin [Lyrica] 75 mg capsule 75 mg PO BID cholecalciferol (vitamin D3) 25 mcg (1,000 unit) Tablet 25 mcg PO DAILY oxycodone 10 mg tablet 10 mg PO BID Discharge Orders: Discharge ED (Routine); Ordered 10/02/23 Ordered By: Karon Coleman Referrals: Mary Sahu MD [Primary Care Provider] - 1-3 days Discharge Diet: Advance as tolerated Discharge Activity: Resume usual activity Patient Instructions: Acute Wounds (DC) Coding Level of Care Code ED Criminal Justice Instructor for Obey Ochoa
== END 2023-10-02 13:16 | disposition home or self-care (01) ==
PROVIDERS: Emergency Provider Emergency Medicine; PCP Family Medicine
DX: Z48.00 Encounter for change or removal of nonsurgical wound dressing (principal); Z79.02 Long term (current) use of antithrombotics/antiplatelets
CPT/HCPCS: 99281

== ENCOUNTER 2024-02-29 12:02 | Outpatient (CLI) | payer OTHER, SELFPAY ==
--- NOTE | 2024-02-29 12:08 | CTR_ITS ---
PROCEDURE INFORMATION: Exam: CT Chest With Contrast; Diagnostic Exam date and time: 02/29/2024 12:43 PM Age: 73 years old Clinical indication: Condition or disease; Lung condition and disease; Pulmonary nodule, solitary; Prior surgery; Surgery date: 6+ months; Surgery type: Bypass; Additional info: Lung nodule rll TECHNIQUE: Imaging protocol: Diagnostic computed tomography of the chest with contrast. Radiation optimization: All CT scans at this facility use at least one of these dose optimization techniques: automated exposure control; mA and/or kV adjustment per patient size (includes targeted exams where dose is matched to clinical indication); or iterative reconstruction. Contrast material: OMNI 350; Contrast volume: 100 ml; Contrast route: INTRAVENOUS (IV); COMPARISON: CT chest w con* [id number] 08/01/2023 11:13 AM RADIATION DOSE METRICS: Total DLP (mGy-cm): 374.96 FINDINGS: Trachea: Mild retained secretions in the trachea. Lungs: Stable 1.3 cm hour glass shaped perifissural nodule in the right lower lobe/middle lobe (series 3 image 39). Mild centrilobular emphysema. A few punctate calcified lung granulomas are again noted. Pleural spaces: Mild left pleural-parenchymal thickening in the posterior lower lobe is unchanged. Heart: Unremarkable. No cardiomegaly. No pericardial effusion. Coronary arteries: Features of prior CABG. Mediastinal space: A few calcified subcarinal and hilar granulomas up to 1.4 cm again present. Lymph nodes: Unremarkable. No enlarged lymph nodes. Vasculature: Moderate atherosclerotic aortic calcification. No central pulmonary arterial filling defects on this non-angiographic study. No aortic aneurysm. Liver: A few subcentimeter hypodense liver lesions are unchanged from 08/01/2023, too small to characterize but statistically likely due to benign etiology. Gallbladder and biliary ducts: Absent gallbladder. Bones/joints: Moderate multilevel degenerative thoracolumbar endplate osteophytosis. Multiple median sternotomy wires. Partially imaged left humeral internal fixation hardware again noted. Soft tissues: Unremarkable. CT/CT chest w con* [id number] IMPRESSION: 1. Stable bilobed perifissural right lung base nodule since 04/27/2023. Follow-up in 1 year may be considered. 2. Other chronic and postsurgical findings detailed above. COMMENTS: The presence of pulmonary emphysema on CT is an independent risk factor for lung cancer. In the absence of a history or active diagnosis of lung cancer, it is recommended that this patient with emphysema be evaluated for enrollment in a low dose CT lung cancer screening program.
[2024-02-29] MEDS: iohexol 350 mg/mL 500 mL Btl (per mL) IV (12:36)
[2024-02-29 12:48] LABS: Blood Urea Nitrogen 25 mg/dL (8-23)
== END 2024-02-29 12:03 | disposition home or self-care (01) ==
PROVIDERS: Radiology Neuroradiology; PCP Family Medicine; Visit Provider Family Medicine
DX: R91.1 Solitary pulmonary nodule (principal); Z95.1 Presence of aortocoronary bypass graft; I70.0 Atherosclerosis of aorta; M25.78 Osteophyte, vertebrae; R93.89 Abnormal findings on diagnostic imaging of other specified body structures; J84.10 Pulmonary fibrosis, unspecified
CPT/HCPCS: 71260; 82565; 84520

== ENCOUNTER 2024-04-04 13:52 | Emergency (ER) | payer OTHER, MEDICARE, SELFPAY ==
[2024-04-04 14:21] VITALS: BP 100/58; PULSE 66; RESP 15; TEMP 36.9; O2SAT 94; BMI 26.6
--- NOTE | 2024-04-04 14:48 | XR_ITS ---
WS: [id number] XR foot LT min 3V* [id number] REASON FOR EXAM: swelling/pain FINDINGS: Mild decreased bone density. No focal bone lesion or acute fracture. No periosteal reaction or bone erosion. Mild narrowing of the joint spaces with mild subchondral sclerosis in the DIP and PIP joints of the s econd through the fifth toes. Mild narrowing with mild subchondral sclerosis in the Lisfranc, intertarsal, and Chopart joints of th e midfoot. Cannot define the subtalar joint on the lateral view. This is at least in part due to nonstandard pos itioning. The fibula is projected anterior to the tibia which indicates medial rotation of the foot. Cannot exclude a coalition. XR/XR foot LT min 3V* [id number] IMPRESSION: No acute abnormality identified. Subtalar joint not defined as above.
--- NOTE | 2024-04-04 14:48 | XR_ITS ---
WS: [id number] XR ankle LT min 3V* [id number] REASON FOR EXAM: pain FINDINGS: No acute fracture identified. Ankle joint spaces are intact and well preserved. Same as was noted on the foot examination, the subtalar joint is not defined. The lateral view of the ankle is essentially the same in appearance is the lateral view of the foot. 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 XR/XR ankle LT min 3V* [id number] IMPRESSION: No acute abnormality identified. 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
--- NOTE | 2024-04-04 14:48 | W.ED.EXTPRO ---
HPI - Extremity Problem General: Chief complaint: Extremity Injury, Lower Stated complaint: LT foot swollen [facility]) Time Seen by Provider: 04/04/24 14:35 Source: patient and family Mode of arrival: ambulatory Limitations: no limitations History of Present Illness: Patient is a 73-year-old male who presents to ED today with a complaint of pain in his left foot for the past 2 days or so. [facility] but cannot tell me why. He feels like the foot might be somewhat discolored although cannot really elaborate on length of time when he began noticing this. He does tell me he thinks it was at least a month or so ago . Daughter states he has had some recent falls and wonders if he could have injured it during the fall. He states most of his pain is present during ambulation. Feels like his feet are always cold. He has not noticed any swelling to the leg. No calf pain. MD Complaint: extremity pain Onset (ago): day(s) Pain Consistency: constant Location: left and lower extremity Radiation: none Relieving factors: immobilization Exacerbating factors: weight bearing and walking Associated symptoms: Reports no associated symptoms; Deny chest pain, fever(s) or rash Related Data Home Medications Medication Instructions Recorded Confirmed atorvastatin 80 mg tablet 80 mg PO QPM 07/23/23 07/23/23 baclofen 10 mg tablet 10 mg PO TID PRN Muscle Spasm 07/23/23 07/23/23 carvedilol 6.25 mg tablet 3.125 mg PO BID 07/23/23 07/23/23 cholecalciferol (vitamin D3) 25 25 mcg PO DAILY 07/23/23 07/23/23 mcg (1,000 unit) tablet cilostazol 100 mg tablet 100 mg PO BID 07/23/23 07/23/23 clopidogrel 75 mg tablet 75 mg PO DAILY 07/23/23 07/23/23 docusate sodium 100 mg capsule 100 mg PO BID 07/23/23 07/23/23 (Colace) ferrous sulfate 325 mg (65 mg 162.5 mg PO QAM 07/23/23 07/23/23 iron) tablet lisinopril 20 mg tablet 30 mg PO DAILY 07/23/23 07/23/23 oxycodone 10 mg tablet 10 mg PO BID 07/23/23 07/23/23 pantoprazole 40 mg tablet,delayed 40 mg PO QAM 07/23/23 07/23/23 release pregabalin 75 mg capsule (Lyrica) 75 mg PO BID 07/23/23 07/23/23 sennosides 8.6 mg tablet (senna) 8.6 mg PO DAILY 07/23/23 07/23/23 Allergies Allergy/AdvReac Type Severity Reaction Status Date / Time No Known Allergies Allergy Verified 10/02/23 12:25 Review of Systems Const: Denies: fever(s), chills, body aches, fatigue or malaise Card: Denies: chest pain Resp: Denies: dyspnea Musc: Reports: extremity pain (L foot) and joint pain (L ankle); Denies: neck pain, back pain, extremity swelling, joint redness, joint warmth or limited range of motion Skin/Breast: Denies: rash Neuro: Reports: difficulty walking (secondary to L foot pain); Denies: numbness in extremities, weakness in extremities or sensory changes Physical Exam Const: COMMON NORMALS: no acute distress, average body habitus, no limitations, alert and well nourished GENERAL APPEARANCE: cooperative ORIENTATION/CONSCIOUSNESS: Yes awake, Yes oriented to person, Yes oriented to place and Yes oriented to time Resp: COMMON NORMALS: normal respiratory effort and clear to auscultation bilaterally AUSCULTATION: clear to auscultation bilaterally Cardio: COMMON NORMALS: regular rate and regular rhythm RATE: regular rate RHYTHM: regular rhythm Extremity: COMMON NORMALS: full ROM and capillary refill normal GENERAL: Yes normal exam except as noted OTHER: patient tenderness to L foot-foot is slightly warm to touch compared to R; hypertrophic nails; there are rubor like changes involving toes-these are not cellulitic appearing; he has no open wounds/sores/puncture sites/etc; no skin breakdown; DP/PT pulses found bilaterally with Doppler; he has no edema to the leg; no calf pain Neuro: COMMON NORMALS: moves all extremities, no focal motor deficits and no sensory deficits noted SENSORIUM/ORIENTATION: Yes alert, Yes oriented to person, Yes oriented to place and Yes oriented to time Course Vital Signs: Vital signs: Vital Signs Temperature 98.4 F 04/04/24 14:21 Pulse Rate 66 04/04/24 14:21 Respiratory Rate 15 04/04/24 14:21 Blood Pressure 100/58 04/04/24 14:21 Pulse Oximetry 94 04/04/24 14:21 Oxygen Delivery Me thod Room Air 04/04/24 14:21 MDM - Extremity (Nontraumatic) Medical Decision Making DP/PT pulses are palpable. No concern for acute arterial occlusion. Clinically I do not have any concern for DVT. Does not appear to be any evidence for acute infection/cellulitis. XRs of the foot and ankle showing chronic changes. 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 Recommend he ice and elevate the extremity and [facility] for continued [facility]. Return to ED precautions given. Medical Records I reviewed the patient's medical records. Lab Data Radiology Impressions Ankle X-Ray 04/04/24 14:48 IMPRESSION: No acute abnormality identified. 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 Foot X-Ray 04/04/24 14:48 IMPRESSION: No acute abnormality identified. Subtalar joint not defined as above. All radiology interpretation(s) finalized by discharge Discharge Plan Discharge Patient Disposition: Home Clinical Impression: Foot pain, left Condition: Stable Prescriptions: No Action cilostazol 100 mg Tablet 100 mg PO BID atorvastatin 80 mg Tablet 80 mg PO QPM senna 8.6 mg Tablet 8.6 mg PO DAILY carvedilol 6.25 mg Tablet 3.125 mg PO BID Rx Instructions: must administer with a meal/food lisinopril 20 mg Tablet 30 mg PO DAILY clopidogrel 75 mg Tablet 75 mg PO DAILY baclofen 10 mg Tablet 10 mg PO TID PRN (Reason: Muscle Spasm) pantoprazole 40 mg Tablet,Delayed Release (Dr/Ec) 40 mg PO QAM ferrous sulfate 325 mg (65 mg iron) Tablet 162.5 mg PO QAM Colace 100 mg Capsule 100 mg PO BID pregabalin [Lyrica] 75 mg capsule 75 mg PO BID cholecalciferol (vitamin D3) 25 mcg (1,000 unit) Tablet 25 mcg PO DAILY oxycodone 10 mg tablet 10 mg PO BID Discharge Orders: Discharge ED (Routine); Ordered 04/04/24 Ordered By: Nirali Kahn Referrals: Mary Sahu MD [Primary Care Provider] - Activity Restrictions/Additional Instructions: As we discussed, [facility]. You need to return to the emergency department for redness or warmth to the foot, streaking up your foot or leg, fevers, severe calf pain or swelling, paleness or coolness to the foot or leg, worsening pain, or any other concerns you may have. Coding Level of Care Code ED Butter Production Supervisor for Obey Ochoa
--- NOTE | 2024-04-04 15:22 | PC.NURSE ---
Doppler for pedal pulses completed and marked for provider.
[2024-04-04 16:03] VITALS: BP 107/64; PULSE 86; RESP 18; O2SAT 97
== END 2024-04-04 16:06 | disposition home or self-care (01) ==
PROVIDERS: Emergency Provider Physician Assistant; PCP Family Medicine
DX: M79.672 Pain in left foot (principal); Z79.02 Long term (current) use of antithrombotics/antiplatelets
CPT/HCPCS: 73610; 73630; 99283

== ENCOUNTER → 2024-04-23 08:38 | Outpatient (BNVA) | payer OTHER, SELFPAY | PROVIDERS: PCP Family Medicine; Visit Provider Nurse Practitioner | DX: M17.11 Unilateral primary osteoarthritis, right knee (principal); M23.51 Chronic instability of knee, right knee; W19.XXXA Unspecified fall, initial encounter; Y92.009 Unspecified place in unspecified non-institutional (private) residence as the place of occurrence of the external cause | CPT/HCPCS: 73560; 73565; 99204 ==

== ENCOUNTER 2024-04-23 11:32 | Outpatient (CLI) | payer OTHER, SELFPAY | END 2024-04-23 11:33 | disposition home or self-care (01) | LOC: SPT 11:32 | PROVIDERS: PCP Family Medicine; Visit Provider Nurse Practitioner | DX: Z46.89 Encounter for fitting and adjustment of other specified devices (principal); M23.51 Chronic instability of knee, right knee; M17.11 Unilateral primary osteoarthritis, right knee; M25.561 Pain in right knee | CPT/HCPCS: 97760; L1812 ==

== ENCOUNTER → 2024-05-28 09:29 | Outpatient (BNVA) | payer OTHER, SELFPAY | PROVIDERS: PCP Family Medicine; Visit Provider Nurse Practitioner | DX: M17.11 Unilateral primary osteoarthritis, right knee (principal) | CPT/HCPCS: 20610; 99213; J1100; J2795; J3301 ==

== ENCOUNTER 2024-07-16 08:33 | Emergency (ER) | payer OTHER, MEDICARE, SELFPAY ==
[2024-07-16 08:34] VITALS: BP 154/78; PULSE 84; RESP 17; TEMP 36.4; O2SAT 96; BMI 27.3
--- NOTE | 2024-07-16 08:47 | CT_ITS ---
WS: [id number] CT HEAD NONCONTRAST HISTORY: trauma TECHNIQUE: Contiguous axial imaging performed through the brain. Bone and soft tissue windows. Sagitt al and coronal reformats reviewed. All CT scans at [facility] use at least one of these dose optimization techniques: automated exposure control; mA and/or kV adjustment per patient size (includ es targeted exams where dose is matched to clinical indication); or iterative reconstruction. DLP: 1368.59 mGy.cm COMPARISON: 07/23/2014 No acute intracranial hemorrhage, midline shift or mass effect. Mild bilateral cerebral atrophy and mild small vessel ischemic changes. Prior lacunar infarct RIGHT i nternal capsule. Mild cerebellar atrophy. Ventricles: Normal size with no hydrocephalus. No inferior displacement of the cerebellar tonsils. Paranasal sinuses: As visualized are clear. Mastoid air cells: Well pneumatized. Calvarium and scalp: Skull is intact with no soft tissue edema or swelling. CT/CT head wo con* [id number] IMPRESSION: 1. No acute intracranial hemorrhage or edema. 2. Mild cerebral atrophy and small vessel disease. 3. No fracture.
--- NOTE | 2024-07-16 08:47 | CT_ITS ---
WS: [id number] CT CERVICAL SPINE HISTORY: trauma TECHNIQUE: Contiguous 2.0 mm axial imaging performed through the entire cervical spine. Sagittal and coronal reformats also performed. All CT scans at [facility] use at least one of these dose o ptimization techniques: automated exposure control; mA and/or kV adjustment per patient size (include s targeted exams where dose is matched to clinical indication); or iterative reconstruction. DLP: 1368.59 mGy.cm COMPARISON: 07/23/2014 Progression of interbody fusions and degenerative cervical spondylosis since 2014. Osseous fusion at C3-4, C4-5 and partially at C5-6. Large osteophytes with severe disc space narrowing throughout the c ervical spine. Extensive posterior laminectomies from C2-3 through C6-7. Mild anterolisthesis of C2 i s similar to prior studies Large 6 mm osteophyte in the extends posterior from C5 into the thecal sac. Lateral masses are aligne d and the odontoid is intact. Extensive bilateral facet joint hypertrophy. Bilateral foraminal narrowing is moderate to severe thro ughout the cervical spine. No acute fractures are identified. Severe central and foraminal stenosis a t C7-T1. Extensive arterial calcification involving the cervical carotid arteries. Lung apices are clear. CT/CT cervical spin wo con* [id number] IMPRESSION: 1. No acute cervical spine fracture. 2. Severe cervical spondylosis with significant progression since 2014. 3. Interbody fusions at C3-4, C4-5 and partially at C5-6. Large posterior lami nectomy defect from C2-3 through C6-7. 4. Severe central stenosis at C7-T1.
[2024-07-16 08:59] LABS: Basophils # 0.1 10^3/uL (0.0-0.1); Basophils % 0.8 %; Eosinophils # 0.1 10^3/uL (0.0-0.8); Eosinophils % 1.4 %; Hematocrit 39.4 % (37-53); Lymphocytes # 1.3 10^3/uL (0.8-4.8); Lymphocytes % 19.9 %; Mean Corpuscular Hemoglobin 31.7 pg (27-33); Mean Platelet Volume 10.3 fL (7.4-10.4); Monocytes # 0.4 10^3/uL (0.2-0.9); Monocytes % 5.6 %; Neutrophils # 4.57 10^3/uL (1.8-7.7); Neutrophils % 71.5 %; Nucleated Red Blood Cells % 0 %; Platelet Count 210 10^3/cmm (157-399); Red Blood Count 3.98 10^6/uL (3.85-5.65); Red Cell Distribution Width 14.5 % (12.1-15.1); White Blood Count 6.39 10^3/uL (3.29-11.43)
--- NOTE | 2024-07-16 09:16 | ED_ITS ---
HPI - Fall 2 General: Chief Complaint: Fall Stated Complaint: Neck pain post fall Time Seen by Provider: 07/16/24 08:40 Source: patient Mode of arrival: EMS Limitations: no limitations History of Present Illness: Patient is a nice 73-year-old male presents to ED today with complaint of neck pain following a fall. Patient states he fell around 5 AM this morning while using the restroom. He states he is supposed to be using a cane at all times to help with ambulation as he chronically has issues with balance and falls frequently. Patient denies chest pain, shortness of breath, difficulty breathing, palpitations. His only physical complaint upon arrival is neck pain. Patient states he has chronic pain-mainly to his neck and back. States he has had multiple neck/back surgeries. He arrives via EMS without a cervical collar. Not sure if he struck his head or not but denies LOC. MD complaint: fall Onset (ago): hour(s) Fall from: standing Fall witnessed: no Place fall occurred: home Loss of consciousness: None Prolonged down time: no Symptoms prior to fall: none Location of injury: head and neck Associated symptoms-after fall: Reports no associated symptoms and neck pain; Denies abdominal pain, chest pain, headache(s), hematuria or lightheadedness Related Data Home Medications Medication Instructions Recorded Confirmed atorvastatin 80 mg tablet 80 mg PO QPM 07/23/23 05/28/24 baclofen 10 mg tablet 10 mg PO TID PRN Muscle Spasm 07/23/23 05/28/24 carvedilol 6.25 mg tablet 3.125 mg PO BID 07/23/23 05/28/24 cholecalciferol (vitamin D3) 25 25 mcg PO DAILY 07/23/23 05/28/24 mcg (1,000 unit) tablet cilostazol 100 mg tablet 100 mg PO BID 07/23/23 05/28/24 clopidogrel 75 mg tablet 75 mg PO DAILY 07/23/23 05/28/24 docusate sodium 100 mg capsule 100 mg PO BID 07/23/23 05/28/24 (Colace) ferrous sulfate 325 mg (65 mg 162.5 mg PO QAM 07/23/23 05/28/24 iron) tablet lisinopril 20 mg tablet 30 mg PO DAILY 07/23/23 05/28/24 pantoprazole 40 mg tablet,delayed 40 mg PO QAM 07/23/23 05/28/24 release pregabalin 75 mg capsule (Lyrica) 75 mg PO BID 07/23/23 05/28/24 sennosides 8.6 mg tablet (senna) 8.6 mg PO DAILY 07/23/23 05/28/24 Previous Rx's Medication Instructions Recorded diclofenac sodium 1 % topical gel 4 g topical QID #100 grams 04/23/24 hinged knee brace #1 ea 04/23/24 tramadol 50 mg tablet 50 mg PO TID PRN pain #21 tabs 04/23/24 hydrocodone 5 mg-acetaminophen 325 1 tab PO BID PRN pain 7 days #14 07/13/24 mg tablet tabs Allergies Allergy/AdvReac Type Severity Reaction Status Date / Time No Known Allergies Allergy Verified 07/16/24 08:42 Review of Systems 2 Eyes: Denies: change in vision, blurry vision, photophobia, eye discharge, floaters or seeing flashes ENMT: Denies: throat pain, odynophagia, ear or mastoid pain, ear discharge, nasal discharge, epistaxis or sinus pain Card: Denies: chest pain, palpitations, lightheadedness, syncope or pre- syncope Resp: Denies: dyspnea or pain on inspiration GI: Denies: abdominal pain : Denies: flank pain or hematuria Musc: Reports: neck pain; Denies: back pain, extremity pain or joint pain Neuro: Denies: headache(s), numbness in extremities, weakness in extremities, sensory changes or dizziness PFSH ED 2 PFSH: Medical History Fall at home Recurrent right knee instability Osteoarthritis of right knee Social History Smoking and tobacco/nicotine status: former use of tobacco/nicotine Physical Exam 2 Const: COMMON NORMALS: no acute distress, average body habitus, patient oriented x3, no limitations, healthy appearing, alert and well nourished G ENERAL APPEARANCE: cooperative ORIENTATION/CONSCIOUSNESS: Yes awake, Yes oriented to person, Yes oriented to place and Yes oriented to time HENMT: COMMON NORMALS: normocephalic, atraumatic and TM's normal bilaterally HEAD & SCALP: normal to inspection, normocephalic and atraumatic; no Wiggins's sign, no hematoma and no raccoon eyes FACE & SINUS: normal facial exam TYMPANIC MEMBRANE: TM's normal bilaterally MOUTH: other (no intraoral injuries noted) Eye: COMMON NORMALS: Equal, round and reactive pupils present and EOMs intact bilaterally GENERAL EYE: appearance normal, both eyes and all related structures and normal light reflex PUPIL: Yes Equal, round and reactive pupils present DIRECT OPHTHALMOSCOPY: Yes normal light reflex Neck/C-Spine: GENERAL: Yes normal visual inspection CERVICAL SPINE: Yes Cervical spine tenderness and No step off deformity OTHER: RN instructed to place c-collar after examination Chest: COMMONS NORMALS: normal inspection of the chest and normal palpation of entire chest wall Resp: COMMON NORMALS: normal respiratory effort and clear to auscultation bilaterally AUSCULTATION: clear to auscultation bilaterally Cardio: COMMON NORMALS: regular rate and regular rhythm RATE: regular rate RHYTHM: regular rhythm GI: COMMON NORMALS: Normal to inspection, nondistended, normoactive bowel sounds present, Soft to palpation, non-tender, No hepatosplenomegaly present and no masses INSPECTION: Yes normal to inspection and No abdominal wall ecchymosis AUSCULTATION: Yes normoactive bowel sounds PALPATION: Yes Soft to palpation and Yes No hepatosplenomegaly present Back/Pelvis: COMMON NORMALS: thoracic and lumbar spine normal to inspection, no thoracic nor lumbar tenderness and thoraco-lumbar ROM normal Extremity: COMMON NORMALS: normal to inspection and full ROM GENERAL: Yes normal exam except as noted Neuro: DAIN COMA SCALE: document GCS findings Dain coma scale eye opening: Spontaneous Vernon coma scale verbal response: Orientated Dain coma scale motor response: Obey commands Vernon coma scale total score: 15 COMMON NORMALS: patient oriented x3, CN's II-XII intact bilaterally, moves all extremities, no focal motor deficits, no sensory deficits noted and gait normal SENSORIUM/ORIENTATION: Yes alert, Yes oriented to person, Yes oriented to place and Yes oriented to time SPEECH: speech normal GAIT: Yes Normal gait present Skin: COMMON NORMALS: no rashes or lesions noted GENERAL SKIN EXAM: no rashes or lesions noted TRAUMA: no lacerations or abrasions Course 2 Vital Signs: Vital signs: Vital Signs Temperature 97.6 F 07/16/24 08:34 Pulse Rate 76 07/16/24 10:07 Respiratory Rate 17 07/16/24 08:34 Blood Pressure 124/56 07/16/24 10:07 Pulse Oximetry 93 07/16/24 10:07 Oxygen Delivery Me thod Room Air 07/16/24 08:34 MDM - Fall Medical Decision Making Patient here following a fall earlier this morning. He has a history of chronic falls. He arrives with a sole complaint of neck pain. He states he chronically has neck pain but this is worse following his fall. CT of his head and cervical spine obtained. He has significant chronic findings involving the cervical spine but no acute fractures. Vital signs are stable. Basic blood work is unremarkable. He will be allowed discharge with recommendations to follow-up with his [facility]CP[facility]. Return to ED precautions discussed. Medical Records I reviewed the patient's medical records. Lab Data I reviewed the patient's lab results. 07/16/24 08:49 07/16/24 08:49 Radiology Impressions Cervical Spine CT 07/16/24 08:47 IMPRESSION: 1. No acute cervical spine fracture. 2. Severe cervical spondylosis with significant progression since 2014. 3. Interbody fusions at C3-4, C4-5 and partially at C5-6. Large posterior laminectomy defect from C2-3 through C6-7. 4. Severe central stenosis at C7-T1. Head CT 07/16/24 08:47 IMPRESSION: 1. No acute intracranial hemorrhage or edema. 2. Mild cerebral atrophy and small vessel disease. 3. No fracture. Laboratory Results WBC 6.39 10^3/uL (3.29-11.43) 07/16/24 08:49 RBC 3.98 10^6/uL (3.85-5.65) 07/16/24 08:49 Hgb 12.60 g/dL (11.27-16.99) 07/16/24 08:49 Hct 39.4 % (37-53) 07/16/24 08:49 MCV 99.0 fl (82-101) 07/16/24 08:49 MCH 31.7 pg (27-33) 07/16/24 08:49 MCHC 32.0 g/dL (30-55) 07/16/24 08:49 RDW 14.5 % (12.1-15.1) 07/16/24 08:49 Plt Count 210 10^3/cmm (157-399) 07/16/24 08:49 MPV 10.3 fL (7.4-10.4) 07/16/24 08:49 Neut % (Auto) 71.5 % 07/16/24 08:49 Lymph % (Auto) 19.9 % 07/16/24 08:49 [place] % (Auto) 5.6 % 07/16/24 08:49 Eos % (Auto) 1.4 % 07/16/24 08:49 Baso % (Auto) 0.8 % 07/16/24 08:49 Neut # (Auto) 4.57 10^3/uL (1.8-7.7) 07/16/24 08:49 Lymph # (Auto) 1.3 10^3/uL (0.8-4.8) 07/16/24 08:49 [place] # (Auto) 0.4 10^3/uL (0.2-0.9) 07/16/24 08:49 Eos # (Auto) 0.1 10^3/uL (0.0-0.8) 07/16/24 08:49 Baso # (Auto) 0.1 10^3/uL (0.0-0.1) 07/16/24 08:49 Nucleated RBC % (auto) 0 % 07/16/24 08:49 Nucleated RBCs # 0.0 /100WBC 07/16/24 08:49 Sodium 142 mmol/L (136-145) 07/16/24 08:49 Potassium 5.1 mmol/L (3.5-5.1) 07/16/24 08:49 Chloride 109 mmol/L (98-107) H 07/16/24 08:49 Carbon Dioxide 23 mmol/L (22-29) 07/16/24 08:49 Anion Gap 15.1 (5-19) 07/16/24 08:49 BUN 22 mg/dL (8-23) 07/16/24 08:49 Creatinine 1.0 mg/dL (0.7-1.2) 07/16/24 08:49 GFR Calculation Not Reportable 07/16/24 08:49 Glucose 99 mg/dL (65-115) 07/16/24 08:49 Calculated Osmolality 297 mOsm/kg (285-295) H 07/16/24 08:49 Calcium 9.2 mg/dL (8.5-10.5) 07/16/24 08:49 Total Bilirubin 0.3 mg/dL (0.15-1.2) 07/16/24 08:49 AST 14 U/L (0-40) 07/16/24 08:49 ALT 12 U/L (0-41) 07/16/24 08:49 Alkaline Phosphatase 98 U/L (40-130) 07/16/24 08:49 Total Protein 6.3 g/dL (6.6-8.7) L 07/16/24 08:49 Albumin 3.8 g/dL (3.5-5.2) 07/16/24 08:49 Globulin 2.5 g/dL (1.3-4.6) 07/16/24 08:49 All radiology interpretation(s) finalized by discharge Discharge Plan Discharge Patient Disposition: Home Clinical Impression: Neck pain Fall at home Qualifiers: Encounter type: initial encounter Qualified Code(s): W19.XXXA - Unspecified fall, initial encounter Condition: Stable Prescriptions: No Action diclofenac sodium 1 % gel 4 g topical QID Qty: 100 3RF Rx Instructions: apply to single knee, ankle, foot; for foot includes sole/toes/top of foot tramadol 50 mg tablet 50 mg PO TID PRN (Reason: pain) Qty: 21 0RF (DME) hinged knee brace See Rx Instructions .Route .MEDSUPPLY Qty: 1 0RF Rx Instructions: As directed hydrocodone-acetaminophen 5-325 mg tablet 1 tab PO BID PRN (Reason: pain) 7 Days Qty: 14 0RF cilostazol 100 mg Tablet 100 mg PO BID atorvastatin 80 mg Tablet 80 mg PO QPM senna 8.6 mg Tablet 8.6 mg PO DAILY carvedilol 6.25 mg Tablet 3.125 mg PO BID Rx Instructions: must administer with a meal/food lisinopril 20 mg Tablet 30 mg PO DAILY clopidogrel 75 mg Tablet 75 mg PO DAILY baclofen 10 mg Tablet 10 mg PO TID PRN (Reason: Muscle Spasm) pantoprazole 40 mg Tablet,Delayed Release (Dr/Ec) 40 mg PO QAM ferrous sulfate 325 mg (65 mg iron) Tablet 162.5 mg PO QAM Colace 100 mg Capsule 100 mg PO BID pregabalin [Lyrica] 75 mg capsule 75 mg PO BID cholecalciferol (vitamin D3) 25 mcg (1,000 unit) Tablet 25 mcg PO DAILY Discharge Orders: Discharge ED (Routine); Ordered 07/16/24 Ordered By: Nirali Kahn Referrals: Mary Sahu MD [Primary Care Provider] - Activity Restrictions/Additional Instructions: As we discussed, his CT head/cervical spine were unremarkable for acute injuries related to his fall today. He does have significant chronic findings involving his neck. [facility] for further evaluation in case symptoms do not improve over the next week or so. He needs to continue to use his cane at all times to prevent further falls. Coding Level of Care Code ED Early Childhood Aide Classroom for Obey Ochoa
[2024-07-16 09:20] LABS: Alanine Aminotransferase 12 U/L (0-41); Albumin Level 3.8 g/dL (3.5-5.2); Alkaline Phosphatase 98 U/L (40-130); Anion Gap 15.1 (5-19); Aspartate Amino Transferase 14 U/L (0-40); Blood Urea Nitrogen 22 mg/dL (8-23); Calcium 9.2 mg/dL (8.5-10.5); Carbon Dioxide 23 mmol/L (22-29); Chloride 109 mmol/L (98-107); Creatinine Clr Calc Pharmacy 67.4443; Globulin 2.5 g/dL (1.3-4.6); Glucose 99 mg/dL (65-115); Osmolality Calculated 297 mOsm/kg (285-295); Potassium 5.1 mmol/L (3.5-5.1); Sodium 142 mmol/L (136-145); Total Bilirubin 0.3 mg/dL (0.15-1.2); Total Protein 6.3 g/dL (6.6-8.7)
[2024-07-16] MEDS: ondansetron 2 mg/ML SDV 2 mL 4 MG IVP (09:32)
[2024-07-16] MEDS: morphine 4 mg/mL SDV 1 mL IVP (09:33)
[2024-07-16 10:07] VITALS: BP 124/56; PULSE 76; O2SAT 93
--- NOTE | 2024-07-16 10:19 | ECG_ITS ---
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: : 1950 Requested By: Nirali Kahn Order Number: [id number] [place] MD: SAMI LONDON Measurements Intervals [place] Rate: 64 P: 69 TN: 170 QRS: 64 QRSD: 105 T: 88 QT: 393 QTc: 406 Interpretive Statements SINUS RHYTHM NONSPECIFIC T-WAVE ABNORMALITY Compared to ECG 07/23/2014 12:03:10 T-wave abnormality now present Ventricular premature complex(es) no longer present Right-axis deviation no longer present Right bundle-branch block no longer present Electronically Signed On 07-16-2024 23:19:36 MANUFACTURING MAINTENANCE MANAGER by SAMI LONDON [email or web address]
--- NOTE | 2024-07-16 10:30 | PC.PHAR ---
[facility] is [facility] and wasn't sure [facility]. [facility] .
[2024-07-16 10:37] VITALS: BP 119/54; PULSE 81; O2SAT 96
== END 2024-07-16 10:41 | disposition home or self-care (01) ==
PROVIDERS: Family Medicine; Emergency Provider Physician Assistant; PCP Family Medicine
DX: M54.2 Cervicalgia (principal); W19.XXXA Unspecified fall, initial encounter; Z79.02 Long term (current) use of antithrombotics/antiplatelets; Z87.891 Personal history of nicotine dependence
CPT/HCPCS: 70450; 72125; 80053; 85025; 93005; 96374; 96375; 99285; J2270; J2405

== ENCOUNTER 2024-07-28 09:50 | Emergency (ER) | payer OTHER, SELFPAY ==
[2024-07-28] VITALS (8 sets, daily range): BP systolic 121–155; BP diastolic 70–78; PULSE 73–96; RESP 18–28; TEMP 36.8; O2SAT 92–95; BMI 29.0
--- NOTE | 2024-07-28 10:06 | XRR_ITS ---
PROCEDURE INFORMATION: Exam: XR Chest Exam date and time: 07/28/2024 12:17 PM Age: 73 years old Clinical indication: Cough; Prior surgery; Surgery date: 6+ months; Surgery type: Heart bypass; Left shoulder; Additional info: Fever, cough TECHNIQUE: Imaging protocol: Radiologic exam of the chest. Views: 1 view. COMPARISON: CT chest w con* [id number] 02/29/2024 12:43 PM FINDINGS: Lungs: Unremarkable. No consolidation. Pleural spaces: Unremarkable. No pleural effusion. No pneumothorax. Heart/Mediastinum: The heart is not enlarged for the AP projection. Status post coronary bypass surgery. Bones/joints: Median sternotomy. Metal hardware transfixes old left proximal humerus fracture. XR/XR chest 1V portable [id number] IMPRESSION: No acute cardiopulmonary abnormality.
[2024-07-28 11:02] LABS: Basophils % 1.2 %; Lymphocytes # 0.6 10^3/uL (0.8-4.8); Lymphocytes % 16.1 %; Mean Corpuscular HGB Conc 32.6 g/dL (30-55); Mean Corpuscular Hemoglobin 31.4 pg (27-33); Mean Corpuscular Volume 96.5 fl (82-101); Mean Platelet Volume 10.7 fL (7.4-10.4); Monocytes # 0.5 10^3/uL (0.2-0.9); Monocytes % 13.5 %; Neutrophils # 2.38 10^3/uL (1.8-7.7); Neutrophils % 68.6 %; Nucleated Red Blood Cells % 0 %; Platelet Count 165 10^3/cmm (157-399); Red Blood Count 4.04 10^6/uL (3.85-5.65); Red Cell Distribution Width 14.6 % (12.1-15.1); White Blood Count 3.47 10^3/uL (3.29-11.43)
[2024-07-28 11:15] LABS: Covid PCR NEGATIVE (Negative); Influenza A POSITIVE (Negative); Influenza B NEGATIVE (Negative); Respiratory Syncytial Virus Ce NEGATIVE (Negative)
[2024-07-28 11:20] LABS: Troponin(5th) Baseline 32 ng/L (0-15)
[2024-07-28 11:21] LABS: Lactic Sepsis W/Reflex 1.2 mmol/L (0.5-2.2)
[2024-07-28 11:22] LABS: Alanine Aminotransferase 15 U/L (0-41); Albumin Level 3.8 g/dL (3.5-5.2); Alkaline Phosphatase 99 U/L (40-130); Anion Gap 16.6 (5-19); Aspartate Amino Transferase 18 U/L (0-40); Blood Urea Nitrogen 15 mg/dL (8-23); C Reactive Protein 9.3 mg/L (0.0-4.9); Calcium 8.7 mg/dL (8.5-10.5); Carbon Dioxide 22 mmol/L (22-29); Chloride 100 mmol/L (98-107); Creatinine Clr Calc Pharmacy 60.9071; Globulin 2.4 g/dL (1.3-4.6); Glucose 96 mg/dL (65-115); Osmolality Calculated 279 mOsm/kg (285-295); Potassium 4.6 mmol/L (3.5-5.1); Sodium 134 mmol/L (136-145); Total Bilirubin 0.3 mg/dL (0.15-1.2); Total Protein 6.2 g/dL (6.6-8.7)
--- NOTE | 2024-07-28 12:07 | ECG_ITS ---
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 Measurements Intervals [place] Rate: 88 P: 73 SC: 153 QRS: 70 QRSD: 105 T: 81 QT: 354 QTc: 430 Interpretive Statements SINUS RHYTHM Compared to ECG 07/28/2024 10:50:50 T-wave abnormality no longer present Electronically Signed On 07-28-2024 13:27:57 PLASTIC CARD GRADER CARDROOM by Connor Langley M.D. [email or web address]
--- NOTE | 2024-07-28 12:40 | W.ED.FEVER ---
HPI - Fever General: Chief Complaint: Fever Stated Complaint: WHEEZING , NOT SLEEPING, EATING , FEVER Time Seen by Provider: 07/28/24 12:18 History of Present Illness: 71-year-old male who presents with a 2-day history of cough, congestion and fever. Fever was up to 102 at home. He has been more fatigued over the past 2 days, having generalized bodyaches, nausea, decreased appetite and decreased p.o. intake. No vomiting or diarrhea. He denies chest pain or abdominal pain. He states he is just having severe fatigue. Associated symptoms: Reports chills and nasal congestion; Deny chest pain or dysuria Related Data Home Medications Medication Instructions Recorded Confirmed atorvastatin 80 mg tablet 80 mg PO QPM 07/23/23 05/28/24 baclofen 10 mg tablet 10 mg PO TID PRN Muscle Spasm 07/23/23 05/28/24 carvedilol 6.25 mg tablet 3.125 mg PO BID 07/23/23 05/28/24 cholecalciferol (vitamin D3) 25 25 mcg PO DAILY 07/23/23 05/28/24 mcg (1,000 unit) tablet cilostazol 100 mg tablet 100 mg PO BID 07/23/23 05/28/24 clopidogrel 75 mg tablet 75 mg PO DAILY 07/23/23 05/28/24 docusate sodium 100 mg capsule 100 mg PO BID 07/23/23 05/28/24 (Colace) ferrous sulfate 325 mg (65 mg 162.5 mg PO QAM 07/23/23 05/28/24 iron) tablet lisinopril 20 mg tablet 30 mg PO DAILY 07/23/23 05/28/24 pantoprazole 40 mg tablet,delayed 40 mg PO QAM 07/23/23 05/28/24 release pregabalin 75 mg capsule (Lyrica) 75 mg PO BID 07/23/23 05/28/24 sennosides 8.6 mg tablet (senna) 8.6 mg PO DAILY 07/23/23 05/28/24 Previous Rx's Medication Instructions Recorded diclofenac sodium 1 % topical gel 4 g topical QID #100 grams 04/23/24 hinged knee brace #1 ea 04/23/24 tramadol 50 mg tablet 50 mg PO TID PRN pain #21 tabs 04/23/24 hydrocodone 5 mg-acetaminophen 325 1 tab PO BID PRN pain 7 days #14 07/19/24 mg tablet tabs albuterol sulfate 90 mcg/actuation 2 inh inhalation Q4H PRN shortness 07/28/24 aerosol inhaler of breath or wheezing #8.5 grams benzonatate 200 mg capsule 200 mg PO TID PRN cough #20 caps 07/28/24 benzonatate 200 mg capsule 200 mg PO TID PRN cough #20 caps 07/28/24 doxycycline hyclate 100 mg capsule 100 mg PO BID 10 days #20 caps 07/28/24 oseltamivir 75 mg capsule (Tamiflu) 75 mg PO BID 5 days #10 caps 07/28/24 prednisone 50 mg tablet 50 mg PO DAILY #5 tabs 07/28/24 Allergies Allergy/AdvReac Type Severity Reaction Status Date / Time No Known Allergies Allergy Verified 07/28/24 10:02 Review of Systems Const: Reports: fever(s), chills and body aches ENMT: Reports: nasal congestion Card: Denies: chest pain Resp: Reports: dyspnea, productive cough and wheezing : Denies: difficulty urinating, dysuria or urinary frequency PFSH ED PFSH: Medical History Fall at home Recurrent right knee instability Osteoarthritis of right knee Social History Smoking and tobacco/nicotine status: former use of tobacco/nicotine Physical Exam Const: OTHER: Ill-appearing, well-developed well-nourished male, no acute distress HENMT: OTHER: Dry mucous membranes, oropharynx is not erythematous Neck/C-Spine: OTHER: Neck is supple. There is no cervical lymphadenopathy. Resp: OTHER: Patient has diffuse rhonchi and wheezes in all lung elena. Cardio: OTHER: Regular rate and rhythm, no murmur GI: OTHER: abdomen is soft, nontender, normal bowel sounds Extremity: OTHER: No calf tenderness, negative Homans bilaterally. Neuro: OTHER: Grossly intact Course Vital Signs: Vital signs: Vital Signs Temperature 98.2 F 07/28/24 09:55 Pulse Rate 96 07/28/24 14:30 Respiratory Rate 18 07/28/24 14:35 Blood Pressure 155/70 07/28/24 13:31 Pulse Oximetry 93 07/28/24 14:35 Oxygen Delivery Me thod Nasal Cannula 07/28/24 14:35 Oxygen Flow Rate 2 07/28/24 14:35 MDM - Fever Medical Decision Making 73-year-old male with a history of hypertension, hyperlipidemia who presents with a 2-day history of fever, cough, congestion, fatigue, decreased p.o. intake of food and fluids. Increased shortness of breath today. Will start an IV, obtain labs. Will check for COVID, influenza and RSV. Will obtain a chest x-ray. Will give the patient an IV fluid bolus. Patient is wheezing, will give him IV Solu-Medrol as well as an albuterol nebulizer treatment. Patient's been given an albuterol nebulizer treatment and a DuoNeb nebulizer treatment. Has been given IV Solu-Medrol. He has been given IV Toradol, Tessalon for cough and his first dose of doxycycline and Tamiflu. He is feeling significantly better. Room air saturations are 92 to 94%. Wheezing has improved. Will discharge patient with prednisone to take 50 mg daily for the next 5 days. Have given him an albuterol inhaler to take 2 puffs every 4 hours and as needed. Will place him on doxycycline 100 twice daily x 10 days. I also given him Tessalon to take 3 times a day as needed for cough. Will also give him Tamiflu 75 mg twice daily for 5 days. He has been instructed to push fluids. Tylenol and/or ibuprofen for fever. Return if symptoms are worsening. Lab Data Patient is labs are fairly unremarkable. He does have slight leukopenia with a white blood cell count of 3.4. Hemoglobin is 12.7 hematocrit 39 platelets are normal at 165. He is hyponatremic with a sodium of 134, again typical probably of a viral illness. Electrolytes are otherwise normal. Glucose is 96. Urinalysis is negative for UTI. Initial troponin was 32, repeat 2 hours 28 with a delta of 4. This is considered negative per my interpretation. CRP is 9.3 which is elevated. 07/28/24 10:46 07/28/24 10:46 Radiology Impressions Chest X-Ray 07/28/24 10:06 IMPRESSION: No acute cardiopulmonary abnormality. Laboratory Results WBC 3.47 10^3/uL (3.29-11.43) 07/28/24 10:46 RBC 4.04 10^6/uL (3.85-5.65) 07/28/24 10:46 Hgb 12.70 g/dL (11.27-16.99) 07/28/24 10:46 Hct 39.0 % (37-53) 07/28/24 10:46 MCV 96.5 fl (82-101) 07/28/24 10:46 MCH 31.4 pg (27-33) 07/28/24 10:46 MCHC 32.6 g/dL (30-55) 07/28/24 10:46 RDW 14.6 % (12.1-15.1) 07/28/24 10:46 Plt Count 165 10^3/cmm (157-399) 07/28/24 10:46 MPV 10.7 fL (7.4-10.4) H 07/28/24 10:46 Neut % (Auto) 68.6 % 07/28/24 10:46 Lymph % (Auto) 16.1 % 07/28/24 10:46 [place] % (Auto) 13.5 % 07/28/24 10:46 Eos % (Auto) 0.0 % 07/28/24 10:46 Baso % (Auto) 1.2 % 07/28/24 10:46 Neut # (Auto) 2.38 10^3/uL (1.8-7.7) 07/28/24 10:46 Lymph # (Auto) 0.6 10^3/uL (0.8-4.8) L 07/28/24 10:46 [place] # (Auto) 0.5 10^3/uL (0.2-0.9) 07/28/24 10:46 Eos # (Auto) 0.0 10^3/uL (0.0-0.8) 07/28/24 10:46 Baso # (Auto) 0.0 10^3/uL (0.0-0.1) 07/28/24 10:46 Nucleated RBC % (auto) 0 % 07/28/24 10:46 Nucleated RBCs # 0.0 /100WBC 07/28/24 10:46 Sodium 134 mmol/L (136-145) L 07/28/24 10:46 Potassium 4.6 mmol/L (3.5-5.1) 07/28/24 10:46 Chloride 100 mmol/L (98-107) 07/28/24 10:46 Carbon Dioxide 22 mmol/L (22-29) 07/28/24 10:46 Anion Gap 16.6 (5-19) 07/28/24 10:46 BUN 15 mg/dL (8-23) 07/28/24 10:46 Creatinine 1.1 mg/dL (0.7-1.2) 07/28/24 10:46 GFR Calculation Not Reportable 07/28/24 10:46 Glucose 96 mg/dL (65-115) 07/28/24 10:46 Calculated Osmolality 279 mOsm/kg (285-295) L 07/28/24 10:46 Lactic Acid 1.2 mmol/L (0.5-2.2) 07/28/24 10:46 Calcium 8.7 mg/dL (8.5-10.5) 07/28/24 10:46 Total Bilirubin 0.3 mg/dL (0.15-1.2) 07/28/24 10:46 AST 18 U/L (0-40) 07/28/24 10:46 ALT 15 U/L (0-41) 07/28/24 10:46 Alkaline Phosphatase 99 U/L (40-130) 07/28/24 10:46 Troponin T Baseline 32 ng/L (0-15) H 07/28/24 10:46 Troponin T 120 Minute 28.13 ng/L (0-15) H 07/28/24 12:38 Delta Troponin T -3.87 ABS# (0-10) L 07/28/24 12:38 C-Reactive Protein 9.3 mg/L (0.0-4.9) H 07/28/24 10:46 Total Protein 6.2 g/dL (6.6-8.7) L 07/28/24 10:46 Albumin 3.8 g/dL (3.5-5.2) 07/28/24 10:46 Globulin 2.4 g/dL (1.3-4.6) 07/28/24 10:46 Urine Color Yellow (Yellow) 07/28/24 14:30 Urine Appearance Clear (CLEAR) 07/28/24 14:30 Urine pH 5.5 (5-7) 07/28/24 14:30 Ur Specific [place] 1.019 (1.005-1.030) 07/28/24 14:30 Urine Protein Negative (Negative) 07/28/24 14:30 Urine Glucose (UA) Negative (Normal) 07/28/24 14:30 Urine Ketones 1+ (Negative) H 07/28/24 14:30 Urine Blood Negative (Negative) 07/28/24 14:30 Urine Nitrate Negative (Negative) 07/28/24 14:30 Urine Bilirubin Negative (Negative) 07/28/24 14:30 Urine Urobilinogen 1.0 mg/dL (Negative) 07/28/24 14:30 Ur Leukocyte Esterase Negative (Negative) 07/28/24 14:30 Urine RBC 0-2 /hpf (0-2) 07/28/24 14:30 Urine WBC 0-5 /hpf (0-5) 07/28/24 14:30 Ur Squamous Epith Cells 0-5 /hpf (0-5) 07/28/24 14:30 Amorphous Sediment Not Reportable 07/28/24 14:30 Urine Bacteria None seen /hpf (NONE) 07/28/24 14:30 Hyaline Casts 0-4 /lpf H 07/28/24 14:30 Coronavirus (PCR) Negative (Negative) 07/28/24 10:30 Influenza A (PCR) Positive (Negative) 07/28/24 10:30 Influenza Type B (PCR) Negative (Negative) 07/28/24 10:30 RSV (PCR) Negative (Negative) 07/28/24 10:30 All radiology interpretation(s) finalized by discharge ED provider radiology interpretation(s): Chest x-ray per my interpretation shows no infiltrate or effusion or other acute findings Discharge Plan Discharge Patient Disposition: Home Clinical Impression: Influenza A, Bronchitis, Wheezing Condition: Stable Prescriptions: New benzonatate 200 mg capsule 200 mg PO TID PRN (Reason: cough) Qty: 20 0RF albuterol sulfate 90 mcg/actuation HFA aerosol inhaler 2 inh inhalation Q4H PRN (Reason: shortness of breath or wheezing) Qty: 8.5 0RF prednisone 50 mg tablet 50 mg PO DAILY Qty: 5 0RF doxycycline hyclate 100 mg capsule 100 mg PO BID 10 Days Qty: 20 0RF oseltamivir [Tamiflu] 75 mg capsule 75 mg PO BID 5 Days Qty: 10 0RF benzonatate 200 mg capsule 200 mg PO TID PRN (Reason: cough) Qty: 20 0RF No Action diclofenac sodium 1 % gel 4 g topical QID Qty: 100 3RF Rx Instructions: apply to single knee, ankle, foot; for foot includes sole/toes/top of foot tramadol 50 mg tablet 50 mg PO TID PRN (Reason: pain) Qty: 21 0RF (DME) hinged knee brace See Rx Instructions .Route .MEDSUPPLY Qty: 1 0RF Rx Instructions: As directed hydrocodone-acetaminophen 5-325 mg tablet 1 tab PO BID PRN (Reason: pain) 7 Days Qty: 14 0RF cilostazol 100 mg Tablet 100 mg PO BID atorvastatin 80 mg Tablet 80 mg PO QPM senna 8.6 mg Tablet 8.6 mg PO DAILY carvedilol 6.25 mg Tablet 3.125 mg PO BID Rx Instructions: must administer with a meal/food lisinopril 20 mg Tablet 30 mg PO DAILY clopidogrel 75 mg Tablet 75 mg PO DAILY baclofen 10 mg Tablet 10 mg PO TID PRN (Reason: Muscle Spasm) pantoprazole 40 mg Tablet,Delayed Release (Dr/Ec) 40 mg PO QAM ferrous sulfate 325 mg (65 mg iron) Tablet 162.5 mg PO QAM Colace 100 mg Capsule 100 mg PO BID pregabalin [Lyrica] 75 mg capsule 75 mg PO BID cholecalciferol (vitamin D3) 25 mcg (1,000 unit) Tablet 25 mcg PO DAILY Discharge Orders: Discharge ED (Routine); Ordered 07/28/24 Ordered By: Debby Prieto Referrals: Mary Sahu MD [Primary Care Provider] - (Follow-up in 3 to 5 days as needed with your primary care provider) Discharge Diet: Advance as tolerated Discharge Activity: Increase activity as tolerated Patient Instructions: Influenza (ED), Acute Bronchitis (ED), Opioid Safety, Pain Management Activity Restrictions/Additional Instructions: Tylenol and ibuprofen as needed for fever. Push fluids. Take the medications as prescribed. Return if your symptoms are worsening. Coding Level of Care Code ED Director Of Professional Services for Obey Ochoa
[2024-07-28] MEDS: sodium chloride 0.9% 1,000 ML 999 ML IV (12:58)
[2024-07-28] MEDS: methylPREDNISolone sod succ 125 mg/2 mL INJ IVP (12:58)
[2024-07-28] MEDS: albuterol 2.5 mg/3 mL Neb INHALATION (13:13)
[2024-07-28 13:18] LABS: Troponin 5 2HR 28.13 ng/L (0-15)
[2024-07-28 13:19] LABS: Troponin 5 2HR Delta -3.87 ABS# (0-10)
[2024-07-28] MEDS: ipratropium-albuterol 3 mL Neb INHALATION (14:18)
[2024-07-28] MEDS: ketorolac 30 mg/mL INJ 15 MG IVP (14:33)
[2024-07-28] MEDS: benzonatate 100 mg Capsule 200 MG PO (14:33)
[2024-07-28 14:46] LABS: Bilirubin Urine Negative (Negative); Blood Urine Negative (Negative); Glucose Urine UA Negative (Normal); Ketones Urine 1+ (Negative); Leukocyte Esterase Urine Negative (Negative); Nitrate Urine Negative (Negative); Protein Urine Negative (Negative); Specific Gravity, Urine 1.019 (1.005-1.030); Urine Appearance Clear (CLEAR); Urine Color Yellow (Yellow); pH Urine 5.5 (5-7)
[2024-07-28 14:48] LABS: Bacteria Urine None Seen /hpf; Hyaline Casts Urine 0-4 /lpf; RBC Urine 0-2 /hpf (0-2); Squamous Epithelial Cell Urine 0-5 /hpf (0-5); WBC Urine 0-5 /hpf (0-5)
[2024-07-28] MEDS: doxycycline 100 mg Tablet PO (15:15)
[2024-07-28] MEDS: oseltamivir phosphate 75 mg Capsule PO (15:15)
--- NOTE | 2024-07-28 16:07 | ECG_ITS ---
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 Measurements Intervals [place] Rate: 85 P: 67 NC: 145 QRS: 68 QRSD: 101 T: 92 QT: 338 QTc: 403 Interpretive Statements SINUS RHYTHM NONSPECIFIC ST & T-WAVE ABNORMALITY Compared to ECG 07/16/2024 10:19:37 No significant changes Electronically Signed On 07-28-2024 13:28:19 [employer] by Connor Langley M.D. [email or web address]
== END 2024-07-28 15:16 | disposition home or self-care (01) ==
PROVIDERS: Emergency Medicine; Emergency Provider Emergency Medicine; PCP Family Medicine
DX: J10.1 Influenza due to other identified influenza virus with other respiratory manifestations (principal); J40 Bronchitis, not specified as acute or chronic; Z11.52 Encounter for screening for COVID-19; Z79.02 Long term (current) use of antithrombotics/antiplatelets; Z87.891 Personal history of nicotine dependence
CPT/HCPCS: 36415; 71045; 80053; 81001; 83605; 84484; 85025; 86140; 87040; 87637; 93005; 94640; 96361; 96374; 96375; 99285; J1885; J2919; J7030; J7613

== ENCOUNTER → 2024-08-29 10:17 | Outpatient (BNVA) | payer OTHER, SELFPAY | PROVIDERS: PCP Family Medicine; Visit Provider Nurse Practitioner | DX: M17.11 Unilateral primary osteoarthritis, right knee (principal); M23.51 Chronic instability of knee, right knee | CPT/HCPCS: 99214 ==

== ENCOUNTER 2024-09-13 10:19 | Outpatient (CLI) | payer OTHER, SELFPAY ==
--- NOTE | 2024-09-13 10:30 | CT_ITS ---
WS: [id number] CT RIGHT knee, noncontrast HISTORY: total right TKA TECHNIQUE: Protocol for [facility] total knee replacement has been obtained. This includes axial imaging through the RIGHT hip, RIGHT knee and RIGHT ankle. DLP: 1036.00 mGy.cm COMPARISON: Radiograph 04/23/2024 Pelvis: Mild osteopenia. SI joint degenerative air. Mild narrowing of the RIGHT hip joint. No acute fracture. RIGHT knee: Mild to moderate tricompartment joint space narrowing with small marginal osteophytes. Scattered vascular calcifications. No significant joint effusion. RIGHT ankle: Negative. CT/CT knee RT [facility] [id number] IMPRESSION: CT imaging provided for [facility] robotic total knee replacement.
== END 2024-09-13 10:20 | disposition home or self-care (01) ==
LOC: RAD 10:20
PROVIDERS: PCP Family Medicine; Visit Provider Nurse Practitioner
DX: M23.51 Chronic instability of knee, right knee (principal); M17.11 Unilateral primary osteoarthritis, right knee; M85.88 Other specified disorders of bone density and structure, other site; M46.1 Sacroiliitis, not elsewhere classified; M25.761 Osteophyte, right knee; I70.90 Unspecified atherosclerosis
CPT/HCPCS: 73700

== ENCOUNTER → 2024-09-17 10:18 | Outpatient (BNVA) | payer OTHER, SELFPAY | PROVIDERS: PCP Family Medicine; Visit Provider Internal Medicine Rheumatology | DX: M19.041 Primary osteoarthritis, right hand (principal); M19.042 Primary osteoarthritis, left hand; M21.611 Bunion of right foot; M06.041 Rheumatoid arthritis without rheumatoid factor, right hand; M06.042 Rheumatoid arthritis without rheumatoid factor, left hand; Z71.85 Encounter for immunization safety counseling; M19.072 Primary osteoarthritis, left ankle and foot; Z79.899 Other long term (current) drug therapy; M06.00 Rheumatoid arthritis without rheumatoid factor, unspecified site; M81.0 Age-related osteoporosis without current pathological fracture; R93.6 Abnormal findings on diagnostic imaging of limbs | CPT/HCPCS: 36415; 73130; 73630; 82306; 83520; 85651; 86140; 86480; 86704; 86803; 87340; 99204 ==

== ENCOUNTER 2024-10-29 11:51 | Outpatient (CLI) | payer OTHER, SELFPAY ==
[2024-10-29 13:04] LABS: Basophils % 0.2 %; Hematocrit 40.4 % (37-53); Lymphocytes # 0.6 10^3/uL (0.8-4.8); Lymphocytes % 6.4 %; Mean Corpuscular HGB Conc 31.4 g/dL (30-55); Mean Corpuscular Hemoglobin 30.2 pg (27-33); Mean Corpuscular Volume 96.2 fl (82-101); Mean Platelet Volume 10.8 fL (7.4-10.4); Monocytes # 0.2 10^3/uL (0.2-0.9); Monocytes % 1.8 %; Neutrophils # 7.71 10^3/uL (1.8-7.7); Neutrophils % 90.4 %; Nucleated Red Blood Cells % 0 %; Platelet Count 175 10^3/cmm (157-399); Red Cell Distribution Width 14.4 % (12.1-15.1); White Blood Count 8.53 10^3/uL (3.29-11.43)
[2024-10-29 13:05] LABS: Erythrocyte Sedimentation Rate 19 mm/hr (0-10)
[2024-10-29 13:23] LABS: Alanine Aminotransferase 11 U/L (0-41); Albumin Level 3.7 g/dL (3.5-5.2); Alkaline Phosphatase 73 U/L (40-130); Aspartate Amino Transferase 12 U/L (0-40); C Reactive Protein 67.2 mg/L (0.0-4.9); Globulin 2.6 g/dL (1.3-4.6); Total Bilirubin 0.5 mg/dL (0.15-1.2); Total Protein 6.3 g/dL (6.6-8.7)
== END 2024-10-29 11:52 | disposition home or self-care (01) ==
LOC: LAB 11:52
PROVIDERS: Internal Medicine Rheumatology; PCP Family Medicine; Visit Provider Nurse Practitioner
DX: Z79.899 Other long term (current) drug therapy (principal)
CPT/HCPCS: 36415; 80076; 82565; 85025; 85651; 86140

== ENCOUNTER 2024-11-21 11:38 | Emergency (ER) | payer OTHER, MEDICARE, SELFPAY ==
[2024-11-21 11:48] VITALS: BP 107/54; PULSE 53; RESP 16; TEMP 36.5; O2SAT 91
--- NOTE | 2024-11-21 11:52 | ECG_ITS ---
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
--- NOTE | 2024-11-21 11:56 | XRR_ITS ---
PROCEDURE INFORMATION: Exam: XR Chest Exam date and time: 11/21/2024 12:45 PM Age: 74 years old Clinical indication: Dyspnea TECHNIQUE: Imaging protocol: Radiologic exam of the chest. Views: 1 view. COMPARISON: CR XR chest 1V portable [id number] 07/28/2024 12:17 PM FINDINGS: Tubes, catheters and devices: Median sternotomy suture wires. Lungs: Unremarkable. No consolidation. Pleural spaces: Unremarkable. No pleural effusion. No pneumothorax. Heart/Mediastinum: Unremarkable. No cardiomegaly. Bones/joints: ORIF of the proximal left humerus. XR/XR chest 1V portable [id number] IMPRESSION: No acute findings.
[2024-11-21 12:34] LABS: Basophils % 0.6 %; Eosinophils % 0.4 %; Hematocrit 42.3 % (37-53); Lymphocytes # 0.7 10^3/uL (0.8-4.8); Lymphocytes % 13.6 %; Mean Corpuscular HGB Conc 30.5 g/dL (30-55); Mean Corpuscular Hemoglobin 30.1 pg (27-33); Mean Corpuscular Volume 98.8 fl (82-101); Mean Platelet Volume 10.8 fL (7.4-10.4); Monocytes # 0.2 10^3/uL (0.2-0.9); Monocytes % 4.7 %; Neutrophils # 4.15 10^3/uL (1.8-7.7); Neutrophils % 80.3 %; Nucleated Red Blood Cells % 0 %; Platelet Count 155 10^3/cmm (157-399); Red Blood Count 4.28 10^6/uL (3.85-5.65); Red Cell Distribution Width 15.4 % (12.1-15.1); White Blood Count 5.16 10^3/uL (3.29-11.43)
[2024-11-21 12:53] LABS: Alanine Aminotransferase 16 U/L (0-41); Albumin Level 3.8 g/dL (3.5-5.2); Alkaline Phosphatase 83 U/L (40-130); Anion Gap 15.2 (5-19); Aspartate Amino Transferase 14 U/L (0-40); Blood Urea Nitrogen 15 mg/dL (8-23); Calcium 9.2 mg/dL (8.5-10.5); Carbon Dioxide 27 mmol/L (22-29); Chloride 104 mmol/L (98-107); Creatinine Clr Calc Pharmacy 65.5059; Globulin 2.6 g/dL (1.3-4.6); Glucose 96 mg/dL (65-115); Osmolality Calculated 293 mOsm/kg (285-295); Potassium 5.2 mmol/L (3.5-5.1); Sodium 141 mmol/L (136-145); Total Bilirubin 0.4 mg/dL (0.15-1.2); Total Protein 6.4 g/dL (6.6-8.7)
[2024-11-21 13:52] VITALS: BP 123/77; PULSE 54; RESP 16; O2SAT 93
--- NOTE | 2024-11-21 14:14 | W.ED.RECABL ---
HPI - Recheck/Abnormal Lab/Rx General: Chief Complaint: Recheck/Abnormal Lab/Rx Stated Complaint: [facility], abnormal labs and imaging Time Seen by Provider: 11/21/24 13:15 History of Present Illness: 74-year-old male presents emergency department at the recommendation of the [facility]. Patient states he went yesterday to get an x-ray of his left foot and to discuss getting medical clearance for right knee replacement. During review of systems he mentioned to them that he had a little bit of shortness of breath for the last month. He reports they river blood work including a D-dimer. They called him and told him his D-dimer was elevated and he needed to come to the emergency department to have a CT scan to make sure he did not have a blood clot or anything major going on. Patient reports he has a cough that is occasionally productive of clear to green sputum. He does have a history of COPD and is a former smoker. He does not use a maintenance inhaler. He does take prednisone 10 mg daily. He is on Plavix. He does have a history of CAD and PAD. Patient reports he has not been having any chest pain or anginal symptoms. He is not coughing up any blood. Related Data Home Medications ?Medication ?Instructions ?Recorded ?Confirmed atorvastatin 80 mg tablet 80 mg PO QPM 07/23/23 09/17/24 baclofen 10 mg tablet 10 mg PO TID PRN Muscle Spasm 07/23/23 09/17/24 carvedilol 6.25 mg tablet 3.125 mg PO BID 07/23/23 09/17/24 cholecalciferol (vitamin D3) 25 25 mcg PO DAILY 07/23/23 09/17/24 mcg (1,000 unit) tablet cilostazol 100 mg tablet 100 mg PO BID 07/23/23 09/17/24 clopidogrel 75 mg tablet 75 mg PO DAILY 07/23/23 09/17/24 docusate sodium 100 mg capsule 100 mg PO BID 07/23/23 09/17/24 (Colace) ferrous sulfate 325 mg (65 mg 162.5 mg PO QAM 07/23/23 09/17/24 iron) tablet lisinopril 20 mg tablet 30 mg PO DAILY 07/23/23 09/17/24 pantoprazole 40 mg tablet,delayed 40 mg PO QAM 07/23/23 09/17/24 release pregabalin 75 mg capsule (Lyrica) 75 mg PO BID 07/23/23 09/17/24 sennosides 8.6 mg tablet (senna) 8.6 mg PO DAILY 07/23/23 09/17/24 Previous Rx's ?Medication ?Instructions ?Recorded diclofenac sodium 1 % topical gel 4 g topical QID #100 grams 04/23/24 hinged knee brace #1 ea 04/23/24 tramadol 50 mg tablet 50 mg PO TID PRN pain #21 tabs 04/23/24 albuterol sulfate 90 mcg/actuation 2 inh inhalation Q4H PRN shortness 07/28/24 aerosol inhaler of breath or wheezing #8.5 grams benzonatate 200 mg capsule 200 mg PO TID PRN cough #20 caps 07/28/24 benzonatate 200 mg capsule 200 mg PO TID PRN cough #20 caps 07/28/24 prednisone 50 mg tablet 50 mg PO DAILY #5 tabs 07/28/24 hydrocodone 5 mg-acetaminophen 325 1 tab PO BID PRN pain 7 days #14 08/29/24 mg tablet tabs prednisone 10 mg tablet See Rx Instructions .Route 09/17/24 .COMPLEX joint pain #90 tabs prednisone 10 mg tablet See Rx Instructions PO DAILY joint 09/19/24 pain #90 tabs leflunomide 20 mg tablet 20 mg PO DAILY #30 tabs 10/09/24 Allergies Allergy/AdvReac Type Severity Reaction Status Date / Time No Known Allergies Allergy Verified 09/17/24 09:31 Review of Systems General: Reports: 10 or more systems reviewed and unremarkable except in HPI and below Const: Denies: fever(s), chills or body aches Eyes: Denies: change in vision ENMT: Denies: throat pain Card: Denies: chest pain, edema or syncope Resp: Reports: dyspnea, productive cough, change in phlegm color and chest congestion; Denies: pain on inspiration or hemoptysis GI: Denies: abdominal pain, nausea, vomiting or diarrhea : Denies: flank pain, dysuria or urinary frequency Musc: Denies: neck pain, back pain, extremity pain or extremity swelling Skin/Breast: Denies: rash or erythema Neuro: Denies: headache(s), numbness in extremities, weakness in extremities, lack of coordination or difficulty walking PFSH ED PFSH: Medical History (Updated 11/21/24 @ 16:10 by Angel Wolf MD) Immunization counseling High risk medication use Polyarthralgia Anxiety Acute anxiety Anemia CAD (coronary artery disease) History of hypertension Hyperlipidemia Abdominal hernia Claudication PAD (peripheral artery disease) Stenosis of artery of left lower extremity Psychiatric care Fall at home Recurrent right knee instability Osteoarthritis of right knee Surgical History (Updated 09/17/24 @ 18:01 by Abelino Hess MD) H/O gastric bypass x4 History of eye surgery History of neck surgery x2 History of shoulder surgery left History of cholecystectomy Previous back surgery x5 S/P hernia surgery Family History (Updated 09/17/24 @ 09:38 by Tona Allen LPN) Other Anemia Cancer Hypertension Denies family history of Lupus (systemic lupus erythematosus) Rheumatoid arthritis Diabetes CAD (coronary artery disease) Migraines Chronic kidney disease (CKD) Stroke Social History Smoking and tobacco/nicotine status: former use of tobacco/nicotine Physical Exam Narrative: EXAM NARRATIVE: Patient has a cough and chest congestion. Occasional end expiratory wheezing. No JVD. Work of breathing is minimally increased without distress. No peripheral edema. No calf tenderness. Negative Homans' sign. Heart rate ranges from mid 50s to mid 60s. Const: COMMON NORMALS: no limitations, alert and well nourished EXAM LIMITATIONS: no altered mental status HENMT: COMMON NORMALS: normocephalic, atraumatic and external ears normal HEAD & SCALP: normocephalic and atraumatic EXTERNAL EAR: Yes external ears normal MOUTH: no muffled voice Eye: COMMON NORMALS: EOMs intact bilaterally, conjunctivae normal and no scleral icterus CONJUNCTIVA: Yes conjunctivae normal Neck/C-Spine: COMMON NORMALS: no JVD GENERAL: Yes normal visual inspection and Yes trachea midline Cardio: COMMON NORMALS: no JVD and regular rhythm; negative for regular rate RATE: abnormal rate RHYTHM: regular rhythm GI: COMMON NORMALS: Soft to palpation and non-tender PALPATION: Yes Soft to palpation and No Guarding due to palpation present (GI) Extremity: COMMON NORMALS: normal to inspection Neuro: COMMON NORMALS: moves all extremities, no focal motor deficits and no sensory deficits noted SENSORIUM/ORIENTATION: Yes alert SPEECH: speech normal Psych: COMMON NORMALS: mental status grossly normal, Normal thought process present, cooperative, normal affect and speech normal SPEECH: Yes normal speech THOUGHT PROCESS: Normal thought process present Skin: COMMON NORMALS: no rashes or lesions noted, turgor normal and no jaundice GENERAL SKIN EXAM: no rashes or lesions noted and turgor normal Course Vital Signs: Vital signs: Vital Signs Temperature 97.7 F 11/21/24 11:48 Pulse Rate 54 L 11/21/24 13:52 Respiratory Rate 16 11/21/24 13:52 Blood Pressure 123/77 11/21/24 13:52 Pulse Oximetry 93 11/21/24 13:52 Oxygen Delivery Me thod Room Air 11/21/24 11:48 MDM - Recheck/Abnormal Lab/Rx Medical Decision Making 1 month of moderate dyspnea, unchanged. Occasional sputum production that is greenish. No fever or chills. No hemoptysis, fever or chills , lower extremity swelling chest pain or other alarming symptoms. Patient sent from the [facility] with reported elevated D-dimer to get a CT angiogram of his chest. Differential diagnosis includes CHF, COPD, atypical ACS, PE, pulmonary edema, pulmonary hypertension, anemia, bronchitis, and large differential diagnosis EKG was obtained at 11:47 AM. Appears to show a sinus rhythm with frequent PVCs. There is a lot of background interference and there are some mild ST depressions in the lateral leads. Update Troponin mildly elevated. Actually decreased from previous. No ACS. May have some CAD--potentially contributing to dyspnea. Needs follow-up with cardiology. CT angiogram of the chest shows stable right lower lobe nodule. No evidence of PE or other acute cardiopulmonary disease. Patient can be discharged home with follow-up to cardiology. He is already planning to do this follow-up because he needs clearance for a possible right knee replacement. I will encourage the patient to use his albuterol more frequently. Lab Data 11/21/24 12:14 11/21/24 12:14 Radiology Impressions Chest X-Ray 11/21/24 11:56 IMPRESSION: No acute findings. Chest CTA 11/21/24 15:04 IMPRESSION: 1. Stable right lower lobe nodule. 2. No evidence of pulmonary embolus or other acute cardiopulmonary disease. Laboratory Results WBC 5.16 10^3/uL (3.29-11.43) 11/21/24 12:14 RBC 4.28 10^6/uL (3.85-5.65) 11/21/24 12:14 Hgb 12.90 g/dL (11.27-16.99) 11/21/24 12:14 Hct 42.3 % (37-53) 11/21/24 12:14 MCV 98.8 fl (82-101) 11/21/24 12:14 MCH 30.1 pg (27-33) 11/21/24 12:14 MCHC 30.5 g/dL (30-55) 11/21/24 12:14 RDW 15.4 % (12.1-15.1) H 11/21/24 12:14 Plt Count 155 10^3/cmm (157-399) L 11/21/24 12:14 MPV 10.8 fL (7.4-10.4) H 11/21/24 12:14 Neut % (Auto) 80.3 % 11/21/24 12:14 Lymph % (Auto) 13.6 % 11/21/24 12:14 Mcdowell % (Auto) 4.7 % 11/21/24 12:14 Eos % (Auto) 0.4 % 11/21/24 12:14 Baso % (Auto) 0.6 % 11/21/24 12:14 Neut # (Auto) 4.15 10^3/uL (1.8-7.7) 11/21/24 12:14 Lymph # (Auto) 0.7 10^3/uL (0.8-4.8) L 11/21/24 12:14 Mcdowell # (Auto) 0.2 10^3/uL (0.2-0.9) 11/21/24 12:14 Eos # (Auto) 0.0 10^3/uL (0.0-0.8) 11/21/24 12:14 Baso # (Auto) 0.0 10^3/uL (0.0-0.1) 11/21/24 12:14 Nucleated RBC % (auto) 0 % 11/21/24 12:14 Nucleated RBCs # 0.0 /100WBC 11/21/24 12:14 Sodium 141 mmol/L (136-145) 11/21/24 12:14 Potassium 5.2 mmol/L (3.5-5.1) H 11/21/24 12:14 Chloride 104 mmol/L (98-107) 11/21/24 12:14 Carbon Dioxide 27 mmol/L (22-29) 11/21/24 12:14 Anion Gap 15.2 (5-19) 11/21/24 12:14 BUN 15 mg/dL (8-23) 11/21/24 12:14 Creatinine 1.0 mg/dL (0.7-1.2) 11/21/24 12:14 GFR Calculation Not Reportable 11/21/24 12:14 Glucose 96 mg/dL (65-115) 11/21/24 12:14 Calculated Osmolality 293 mOsm/kg (285-295) 11/21/24 12:14 Calcium 9.2 mg/dL (8.5-10.5) 11/21/24 12:14 Total Bilirubin 0.4 mg/dL (0.15-1.2) 11/21/24 12:14 AST 14 U/L (0-40) 11/21/24 12:14 ALT 16 U/L (0-41) 11/21/24 12:14 Alkaline Phosphatase 83 U/L (40-130) 11/21/24 12:14 Troponin T Baseline 25 ng/L (0-15) H 11/21/24 15:30 Total Protein 6.4 g/dL (6.6-8.7) L 11/21/24 12:14 Albumin 3.8 g/dL (3.5-5.2) 11/21/24 12:14 Globulin 2.6 g/dL (1.3-4.6) 11/21/24 12:14 All radiology interpretation(s) finalized by discharge Discharge Plan Discharge Patient Disposition: Home Clinical Impression: Dyspnea, Frequent PVCs Condition: Stable Prescriptions: No Action hydrocodone-acetaminophen 5-325 mg tablet 1 tab PO BID PRN (Reason: pain) 7 Days Qty: 14 0RF diclofenac sodium 1 % gel 4 g topical QID Qty: 100 3RF Rx Instructions: apply to single knee, ankle, foot; for foot includes sole/toes/top of foot tramadol 50 mg tablet 50 mg PO TID PRN (Reason: pain) Qty: 21 0RF (DME) hinged knee brace See Rx Instructions .Route .MEDSUPPLY Qty: 1 0RF Rx Instructions: As directed prednisone 10 mg tablet See Rx Instructions .Route .COMPLEX Qty: 90 1RF Rx Instructions: 4tabs daily x5days, then 3tabs QD x5days, 2 tabs QD x5days, 1tab QD x5 QD then stay on 0.5 tab daily prednisone 10 mg tablet See Rx Instructions PO DAILY Qty: 90 1RF Rx Instructions: 2 tabs daily x5days, 1tab daily x5days then stay on 0.5 tab daily leflunomide 20 mg tablet 20 mg PO DAILY Qty: 30 3RF benzonatate 200 mg capsule 200 mg PO TID PRN (Reason: cough) Qty: 20 0RF albuterol sulfate 90 mcg/actuation HFA aerosol inhaler 2 inh inhalation Q4H PRN (Reason: shortness of breath or wheezing) Qty: 8.5 0RF prednisone 50 mg tablet 50 mg PO DAILY Qty: 5 0RF benzonatate 200 mg capsule 200 mg PO TID PRN (Reason: cough) Qty: 20 0RF cilostazol 100 mg Tablet 100 mg PO BID atorvastatin 80 mg Tablet 80 mg PO QPM senna 8.6 mg Tablet 8.6 mg PO DAILY carvedilol 6.25 mg Tablet 3.125 mg PO BID Rx Instructions: must administer with a meal/food lisinopril 20 mg Tablet 30 mg PO DAILY clopidogrel 75 mg Tablet 75 mg PO DAILY baclofen 10 mg Tablet 10 mg PO TID PRN (Reason: Muscle Spasm) pantoprazole 40 mg Tablet,Delayed Release (Dr/Ec) 40 mg PO QAM ferrous sulfate 325 mg (65 mg iron) Tablet 162.5 mg PO QAM Colace 100 mg Capsule 100 mg PO BID pregabalin [Lyrica] 75 mg capsule 75 mg PO BID cholecalciferol (vitamin D3) 25 mcg (1,000 unit) Tablet 25 mcg PO DAILY Discharge Orders: Discharge ED (Routine); Ordered 11/21/24 Ordered By: Angel Wolf Referrals: Mary Sahu MD [Primary Care Provider, Family Practice] Patient Instructions: Shortness of Breath (ED), Pain Management Activity Restrictions/Additional Instructions: 1. You do not have a pulmonary embolism or blood clot in your lung artery. 2. You do not have any signs of pneumonia on your x-ray or CT scan 3. You need to use your inhaler more frequently when you are experiencing shortness of breath to see if you get any improvement. Make sure you are using a spacer chamber with the albuterol inhaler. 4. You may have coronary artery disease. You need to do a follow-up with cardiology to further evaluate this and decide if it is clinically relevant. It will also be required for your potential right knee replacement. Please read all discharge instructions and abide by recommendations and return precautions. Make an appointment to follow-up with your primary care doctor as directed for follow-up. Return to ER if getting worse or other emergent symptoms. Print Language: Estonian Coding Level of Care Code ED [employer] T[employer] for O[facility] Ochoa
--- NOTE | 2024-11-21 15:04 | CTR_ITS ---
PROCEDURE INFORMATION: Exam: CTA Chest With Contrast Exam date and time: 11/21/2024 3:36 PM Age: 74 years old Clinical indication: Abnormal findings; Abnormal diagnostic tests; Elevated d-dimer; Shortness of breath; Prior surgery; Surgery date: 6+ months; Surgery type: Cabg; Additional info: Sent from [facility] for dyspnea and elevated dimer TECHNIQUE: Imaging protocol: Computed tomographic angiography of the chest with contrast. Exam focused on the arteries. 3D rendering (Not supervised by radiologist): MIP and/or 3D reconstructed images were created by the technologist. Radiation optimization: All CT scans at this facility use at least one of these dose optimization techniques: automated exposure control; mA and/or kV adjustment per patient size (includes targeted exams where dose is matched to clinical indication); or iterative reconstruction. Contrast material: OMNI 350; Contrast volume: 100 ml; Contrast route: INTRAVENOUS (IV); COMPARISON: CT chest w con* [id number] 02/29/2024 12:43 PM RADIATION DOSE METRICS: Total DLP (mGy-cm): 362.6 FINDINGS: Pulmonary arteries: No evidence of pulmonary embolus. Aorta: Unremarkable. No aortic aneurysm. No aortic dissection. Lungs: Unremarkable. No consolidation. No masses. Pleural spaces: Stable 11 mm nodule in the right major fissure is unchanged. Heart: Unremarkable. No cardiomegaly. No pericardial effusion. Lymph nodes: Unremarkable. No enlarged lymph nodes. Gallbladder and biliary ducts: Cholecystectomy. Bones/joints: Unremarkable. No acute fracture. Soft tissues: Unremarkable. Other findings: Small scattered calcified granulomata. CT/CT angio chest PE protcl [id number] IMPRESSION: 1. Stable right lower lobe nodule. 2. No evidence of pulmonary embolus or other acute cardiopulmonary disease.
[2024-11-21 15:30] VITALS: BP 132/70; PULSE 63; O2SAT 96
[2024-11-21] MEDS: iohexol 350 mg/mL 500 mL Btl (per mL) IV (15:42)
[2024-11-21 16:03] LABS: Troponin(5th) Baseline 25 ng/L (0-15)
[2024-11-21 16:34] VITALS: BP 147/87; PULSE 68; O2SAT 94
== END 2024-11-21 16:37 | disposition home or self-care (01) ==
PROVIDERS: Emergency Provider Emergency Medicine; PCP Family Medicine
DX: R06.00 Dyspnea, unspecified (principal); I49.3 Ventricular premature depolarization; Z79.02 Long term (current) use of antithrombotics/antiplatelets; Z87.891 Personal history of nicotine dependence; I25.10 Atherosclerotic heart disease of native coronary artery without angina pectoris; E78.5 Hyperlipidemia, unspecified; I10 Essential (primary) hypertension
CPT/HCPCS: 36415; 71045; 71275; 80053; 84484; 85025; 93005; 99285

== ENCOUNTER → 2024-11-26 09:25 | Outpatient (BNVA) | payer OTHER, SELFPAY | PROVIDERS: PCP Family Medicine; Visit Provider Nurse Practitioner | DX: M17.11 Unilateral primary osteoarthritis, right knee (principal); M23.51 Chronic instability of knee, right knee | CPT/HCPCS: 73560; 73565; 99213 ==

== ENCOUNTER → 2024-11-28 13:44 | Outpatient (BNVA) | payer OTHER, SELFPAY | PROVIDERS: PCP Family Medicine; Visit Provider Internal Medicine Rheumatology | DX: M25.50 Pain in unspecified joint (principal); Z79.899 Other long term (current) drug therapy; Z71.85 Encounter for immunization safety counseling | CPT/HCPCS: 99214 ==

== ENCOUNTER → 2024-12-19 15:01 | Outpatient (BNVA) | payer OTHER, SELFPAY | PROVIDERS: PCP Family Medicine; Visit Provider Podiatrist Foot & Ankle Surgery | DX: I73.9 Peripheral vascular disease, unspecified (principal); L60.3 Nail dystrophy; R09.89 Other specified symptoms and signs involving the circulatory and respiratory systems | CPT/HCPCS: 11721; 99203 ==

== ENCOUNTER → 2025-01-08 15:40 | Outpatient (BNVA) | payer OTHER, SELFPAY | PROVIDERS: PCP Family Medicine; Visit Provider Internal Medicine Cardiovascular Disease | DX: R07.9 Chest pain, unspecified (principal) | CPT/HCPCS: 93005; 99204 ==

== ENCOUNTER 2025-01-10 15:15 | Outpatient (CLI) | payer OTHER, SELFPAY ==
--- NOTE | 2025-01-10 15:45 | USCV_ITS ---
Gael Nevarez Age: 74 Gender: M : 1950 Exam Date: 01/10/2025 15:26 Ordering Phys: Elisa Carlin MD ([email or web address]) Technologist: Exam Location: [facility] [place] Indication: cad BP: 123 / 70 HR: 60 Rhythm: Sinus Technical Quality: Adequate MEASUREMENTS (Male / Female) Normal Values 2D ECHO LV Diastolic Diameter PLAX 3.8 cm 4.2 - 5.9 / 3.9 - 5.3 cm IVS Diastolic Thickness 1.2 cm 0.6 - 1.0 / 0.6 - 0.9 cm IVS Systolic Thickness 1.6 cm LVPW Diastolic Thickness 1.1 cm 0.6 - 1.0 / 0.6 - 0.9 cm LVPW Systolic Thickness 1.6 cm LVOT Diameter 2.0 cm LV Ejection Fraction 2D Teich 66.7 % LV Ejection Fraction MOD 4C 57.2 % LV Ejection Fraction MOD 2C 42.6 % LV Ejection Fraction 2C AL 44.9 % LA Diameter 3.1 cm RA Systolic Volume 4C AL 38.2 ml RA Systolic Volume 4C MOD 36.9 ml LA Sys Volume AL 44.5 cm cubed LA Sys Volume Index AL 23.0 cm cubed/m squared Aorta at Sinotubular Diameter 3.0 cm IVC Diameter 1.8 cm M-MODE LA Ao Ratio MM 1.2 AV Cusp Separation MM 2.0 cm DOPPLER AV Peak Velocity 110.0 cm/s LVOT Peak Velocity 87.0 cm/s AV Area Cont Eq vti 3.5 cm squared AV Area Cont Eq pk 2.5 cm squared MV Area PHT 3.0 cm squared Mitral E to A Ratio 0.7 TV Peak Velocity 243.0 cm/s TR Peak Velocity 274.0 cm/s TR Peak Gradient 30.0 mmHg TV Peak E Velocity 89.0 cm/s PV Peak Velocity 82.0 cm/s FINDINGS Left Ventricle Normal left ventricular size, systolic function and wall thickness, with no regional wall motion abnormalities. Left ventricular ejection fraction is estimated at 60 %. Grade I/IV diastolic dysfunction (abnormal relaxation filling pattern), normal to mildly elevated filling pressures. Right Ventricle The right ventricle is normal in size and function. Right Atrium The right atrium is normal in size. Left Atrium The left atrium is normal in size. Mitral Valve Structurally normal mitral valve without significant stenosis or prolapse. There is no mitral regurgitation. Aortic Valve Mild aortic valve calcification. No aortic valve stenosis. Trace aortic valve regurgitation. Tricuspid Valve Structurally normal tricuspid valve without significant stenosis or regurgitation. Pulmonary artery systolic pressure is normal. Pulmonic Valve Mild pulmonary valve regurgitation. Pericardium Normal pericardium without effusion. Aorta Normal ascending aorta dimension. IVC The inferior vena cava appears normal. CONCLUSIONS Normal left ventricular size, systolic function and wall thickness, with no regional wall motion abnormalities. Left ventricular ejection fraction is estimated at 60 %. Grade I/IV diastolic dysfunction (abnormal relaxation filling pattern), normal to mildly elevated filling pressures. There is no pericardial effusion. Mild pulmonary valve regurgitation. Right atrial pressure is around 5 mm of mercury. Elisa Carlin MD (Electronically Signed) Final Date: 12 January 2025 19:56 S
== END 2025-01-10 15:16 | disposition home or self-care (01) ==
LOC: RAD 15:16
PROVIDERS: PCP Family Medicine; Visit Provider Internal Medicine Cardiovascular Disease
DX: R06.02 Shortness of breath (principal); R07.9 Chest pain, unspecified; R93.1 Abnormal findings on diagnostic imaging of heart and coronary circulation; I35.8 Other nonrheumatic aortic valve disorders; I37.1 Nonrheumatic pulmonary valve insufficiency
CPT/HCPCS: 93306

== ENCOUNTER 2025-01-16 08:29 | Outpatient (CLI) | payer OTHER, SELFPAY ==
--- NOTE | 2025-01-16 08:38 | CT_ITS ---
WS: [id number] CT chest w con* [id number] HISTORY: RLL NODULE SURVEILLANCE TECHNIQUE: Axial imaging performed through the thorax. Coronal and sagittal reformats are submitted. All CT scans at [facility] use at least one of these dose optimization techniques: automated exposure control; mA and/or kV adjustment per patient size (includes targeted exams where dose is matched to clinical indication); or iterative reconstruction. CONTRAST: Omnipaque 350; 100 mL IV. DLP: 342.17 mGy.cm COMPARISON: 11/21/2024, 02/29/2024, 04/27/2023 Lungs and central airway: Previously described lobulated nodule along the inferior RIGHT major fissure is reidentified. This nodule measures 9 x 8 x 11 mm and has not changed in size since 04/27/2023. There is an additional perifissural nodule on the LEFT measuring 3 mm. 2 mm nodule at the RIGHT lung base is subpleural, image 43 series 4. There are no enlarging masses. Benign granuloma LEFT upper lobe. Pleura: Normal. No pleural effusion. Heart and pericardium: Prior CABG. Normal size heart. Mediastinum and amanda: No mediastinum or hilar adenopathy. Vessels: Moderate atherosclerotic plaque thoracic aorta. Nonaneurysmal aorta. Normal size pulmonary artery. Chest wall and lower neck: LEFT thyroid nodule. Prior CABG. Upper abdomen: Small hiatal hernia. Prior cholecystectomy. No adrenal mass. Osseous structures: Thoracic spine spondylosis. No destructive bone lesions. Prior LEFT humeral head repair. CT/CT chest w con* [id number] IMPRESSION: 1. No interval change lobulated RIGHT perifissural nodule measuring 9 x 8 x 11 mm. Stable since 04/27/2023. No new or enlarging mass or nodule. 2. Prior CABG. 3. No pleural effusion. 4. Prior cholecystectomy.
[2025-01-16 09:10] LABS: Blood Urea Nitrogen 26 mg/dL (8-23)
[2025-01-16] MEDS: iohexol 350 mg/mL 500 mL Btl (per mL) IV (09:13)
== END 2025-01-16 08:30 | disposition home or self-care (01) ==
LOC: RAD 08:30
PROVIDERS: PCP Family Medicine; Visit Provider Family Medicine
DX: R91.1 Solitary pulmonary nodule (principal)
CPT/HCPCS: 71260; 82565; 84520

== ENCOUNTER 2025-01-21 08:53 | Outpatient (CLI) | payer OTHER, SELFPAY ==
[2025-01-21 09:04] VITALS: BMI 27.4
--- NOTE | 2025-01-21 09:06 | ECG_ITS ---
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 Interpretive Statements LEXISCAN SESTAMIBI STRESS TEST Procedure: At the baseline, the blood pressure was 152/67 mmHg with a heart rate of 62 bpm. The electrocardiogram showed sinus arrhythmia, with mild nonspecific ST-T wave abnormality. The Lexiscan was infused over a period of 20 seconds. A total of 0.4 mg of Lexiscan was infused. The stress phase was continued for a total of 5 minutes. Heart rate was at the end of stress phase was 85 bpm and a blood pressure of 143/67 mmHg. The EKG at the peak infusion revealed normal sinus rhythm with no significant ST-T wave changes. Sestamibi was injected 20 seconds after the Lexiscan infusion. Blood pressure at the end of recovery phase was 149/69 mmHg with a heart rate of 74 bpm. Conclusion: 1. Normal EKG response to Lexiscan infusion 2. No Lexiscan induced chest pain or cardiac arrhythmia. 3. Normal blood pressure and heart rate response. 4. Nuclear myocardial perfusion scan pending; see separate report. Electronically Signed On 01-24-2025 17:32:29 CDT by Salvatore Watson M.D. [email or web address]
--- NOTE | 2025-01-21 09:06 | NMCV_ITS ---
NM dajuan perf SPECT r/s* [id number] Gael Nevarez Age: 74 Gender: M : 1950 Exam Date: 01/21/2025 10:04 Ordering Phys: Elisa Carlin MD ([email or web address]) Technologist: AKBAR Huerta Exam Location: [facility] Indications: cp STRESS TEST Please see separate stress test report in [facility] for full findings IMAGE PROTOCOL Rest/Stress 1 Lexiscan Day Radiopharmaceutical Dose (mCi) Administration Site Administered by Rest: Tc-99m 10.4 IV AKBAR Huerta Sestamibi Stress:Tc-99m 32.7 IV Gloria Ryan, INSPECTOR HEATING AND REFRIGERATION Sestamibi Rest: 21-Jan-2025 60 Discovery 630 Stress: 21-Jan-2025 0 Discovery 630 0.4mg Lexiscan. Images obtained in supine and prone position. SPECT RESULTS Technical Quality: Good Raw Data Analysis: Normal Image Corrections: No attenuation or motion correction applied Summed Stress Score: 16 Summed Rest Score: 8 Summed Difference Score: 9 PERFUSION FINDINGS There is a medium sized area of moderately reduced tracer counts in the mid and basal inferolateral wall segments on the stress images which improves on the resting images consistent with inducible reversible ischemia. Some diaphragmatic attenuation artifact is also present. FUNCTIONAL RESULTS (calculated via Gated SPECT) Stress Image LV EF (%): 70 Stress EDV (mL):99 TID: 0.93 Stress ESV (mL):30 FUNCTIONAL FINDINGS: Normal left ventricular systolic function with ejection fraction of 70%. IMPRESSIONS 1. Abnormal myocardial perfusion with a medium sized area of reversible ischemia in the inferolateral wall. 2. Normal left ventricular systolic function, EF 70%. Salvatore Watson MD, FACC (Electronically Signed) Final Date: 21 January 2025 13:39 S
[2025-01-21 10:46] VITALS: BP 149/69; PULSE 77
== END 2025-01-21 08:54 | disposition home or self-care (01) ==
LOC: CDL 08:54
PROVIDERS: PCP Family Medicine; Visit Provider Internal Medicine Cardiovascular Disease
DX: R07.9 Chest pain, unspecified (principal); R94.39 Abnormal result of other cardiovascular function study
CPT/HCPCS: 36415; 78452; 93017; 96374; A9500; J2785

== ENCOUNTER 2025-01-25 11:02 | Emergency (ER) | payer OTHER, MEDICARE, SELFPAY ==
--- OUTSIDE RECORDS SUMMARY | 2023-12-12 06:17 | XMS_ITS | Continuity of Care Document ---
Author Organization [facility] Address [address] [place] [address] Phone Care Team Providers Care Theater Set Production Designer Name Role Phone Vale Gallagher MD Unavailable Unavailable Allergies, Adverse Reactions, Alerts Substance Reaction Status Criticality No Known Allergies Active No Inform ation Medications Medication Instructions Dosage Effective Dates (start - stop) Status Comments Sutab 1.479-0.188-0.225 gram tablet FOLLOW INSTRUCTION THAT GET EMAILED TO YOU. - NO PA REQ WITH SUTAB COUPON. BIN:[id number] PCN:CN GROUP: [id number] ID:[id number] - COPAY IS $40. - Active Run Sutab coupon in place of PA- Not required with coupon, patient cost should be $40. BIN: [id number]: CNGROUP: [id number]: [id number] hydrocodone 7.5 mg-acetaminophen 325 mg tablet take 1 to 2 tablets by oral route every 4 to 6 hours as needed for pain - Active aspirin 325 mg tablet take 1 tablet by oral route every day x 10 days - Active docusate sodium 100 mg capsule take 1 capsule by oral route 2 times every day as needed 100 MG - Active ondansetron HCl 4 mg tablet take 1 tablet by oral route every 6 hours 4 MG - Active AndroGel 1.62 % (20.25 mg/1.25 gram) transdermal gel packet apply 1 packet by transdermal route every day in the morning to each upper arm and shoulder for a total dose of 40.5mg 20.25 MG - Active Diovan HCT 320 mg-12.5 mg tablet take 1 tablet by oral route every day 1.00 tablet - Active allopurinol 100 mg tablet take 1 tablet by oral route 3 times every day 100 MG - Active Synthroid 112 mcg tablet take 1 tablet by oral route every day 112 MCG - Active Flonase Allergy Relief 50 mcg/actuation nasal spray,suspension inhale 2 spray by intranasal route every day in each nostril 100 MCG - Active tamsulosin 0.4 mg capsule take 1 capsule by oral route every day 1/2 hour following the same meal each day 0.4 MG - Active Lipitor 10 mg tablet take 1 tablet by oral route every day 10 MG - Active pioglitazone 30 mg tablet take 1 tablet by oral route every day 30 MG - Active fluoxetine 20 mg tablet take 1 tablet by oral route every day in the morning 20 MG - Active metformin 1,000 mg tablet take 1 tablet by oral route 2 times every day with morning and evening meals 1000 MG - Active Problems Condition Type Effective Dates (start - stop) Clini lm Status Comments No Known Problems Advance Directives Directive Yes / No Effective Date File Name No Information Encounters Encounter Description Practice Location Reason(s) For Visit Diagnoses Date Provider [facility], [address] [place] [address], [facility], tel:[phone] [facility] [place] [facility] No Information 2023 Aileen Teixeiratonio. [address], [place], [place], [id number], [place]. tel:[phone] [facility], [address] [place] [address], [facility], [place] tel:[phone] [facility] Benign neoplasm of descending colonDvrtclos of lg int w/o perforation or abscess w/o bleedingBenign neoplasm of ascending colonOther hemorrhoids 2020 Toño Moraes. [address], [place], [place], [id number], [place]. tel:[phone] [facility], [address] [place] [address], [facility], [place] tel:[phone] [facility] [place] No Information 2020 Toño Moraes. [address], [place], [place], [id number], [place]. tel:[phone] [facility], [address] [facility], [place], [address], [place] tel:[phone] [facility] [place] *Left Knee Pain (chief complaint) Derangement of medial meniscus of left knee 2017 Gayle Hess. [address], [place], [place], [id number], [place]. tel:[phone] [facility], [address] [place] [address], [address], [place] tel:[phone] [facility] Right knee scope post op (chief complaint) Derangement of posterior horn of medial meniscus due to old tear or injury, right knee 2016 Gayle Hess. [address], [place], [place], [id number], [place]. tel:[phone] [facility] [address] [place] [address], [address], [place] tel:[phone] [facility] Oth tear of medial meniscus, current injury, r knee, subs 2016 Gayle Hess. [address], [place], [place], [id number], [place]. tel:[phone] [facility], [address] [place] [address], [address], [place] tel:[phone] [facility] knee pain (chief complaint) Derangement of posterior horn of medial meniscus due to old tear or injury, right kneeBody mass index (BMI) 40.0-44.9, adult 2016 Gayle Hess. [address], [place], [place], [id number], [place]. tel:[phone] [facility], [address] [place] [address], [address], [place] tel:[phone] [facility] [place] *right knee pain (chief complaint) Derangement of posterior horn of medial meniscus due to old tear or injury, right knee 2015 Gayle Hess. [address], [place], [place], [id number], [place]. tel:[phone] [facility], [address], [place], [facility], tel:[phone] [facility] No Information 2015 Gayle Hess. [address], [place], [place], [id number], . tel:[phone] [facility], [address], [place], [facility], tel:[phone] [facility] [place] right knee pain (chief complaint) Right knee pain, unspecified chronicityTear of medial meniscus of right knee, unspecified tear type, unspecified whether old or current tear, initial encounter 2015 Gayle Hess. [address], [place], [place], [id number], . tel:[phone] Family History Family Member Type Diagnosis Age At Onset Mother Problem (finding) malignant neoplasm of u terus Maternal grandmother Problem (finding) Diabetes mellit Mother Problem (finding) breast cancer Payers Payer name Insurance type Covered green party ID Authoriza tion(s) MEDICARE MB [id number] [facility] [id number] Social History Type Description Quantity Date Captured Comments Sex Male Smoking Status No Information Chief Complaint And Reason For Visit No Information Plan Of Treatment Date Type Action Status Goal Consider PSA Scr eening. Due on due Goal Pneumococcal vac cine (Prevnar 13). Due on due Goal Mentl Hlth/Subst Abuse Scrn-ie. optl [employer]. Due on due Goal MCR Annual Welln ess Visit. Due on due Goal Lipid panel. Due on due Goal Pneumo (2 yrs or older)(PPV)(IM or SC). Due on due Goal FIT. Due on due Goal FIT-DNA (Cologua rd). Due on due Goal COVID-19 Vaccine . Due on due Goal Medicare Annual Wellness Visit. Due on due Goal Diabetes screeni ng. Due on due Goal Td vaccine. Due on 21 due Goal Colonoscopy. Due on 021 due Goal Influenza vaccin e. Due on due Goal FOBT. Due on due Goal Glaucoma Screeni ng. Due on due Goal Tdap. Due on due Goal Zoster vaccine ( ). Due on due Goal Lipid panel. Due on 018 due Goal Td vaccine. Due on 18 due Goal Cologuard (unles s c-scope UTD). Due on due Goal Tdap. Due on due Goal Glaucoma Screeni ng. Due on due Goal Mentl Hlth/Subst Abuse Scrn-ie. optl [employer]. Due on due Goal Zoster vaccine. Due on due Goal Colonoscopy. Due on 018 due Goal MCR Annual Welln ess Visit. Due on due Goal Pneumococcal vac cine (Prevnar 13). Due on due Goal FOBT. Due on due Goal Consider PSA Scr eening. Due on due Goal Influenza vaccin e. Due on due Goal Colonoscopy. Due on 017 due Goal Tdap. Due on due Goal Consider PSA Scr eening. Due on due Goal Zoster vaccine. Due on due Goal Mentl Hlth/Subst Abuse Scrn-ie. optl [employer]. Due on due Goal FOBT. Due on due Goal Td vaccine. Due on due Goal Influenza vaccin e. Due on due Goal Lipid panel. Due on due Goal Influenza vaccin e. Due on due Goal Tdap. Due on due Goal Lipid panel. Due on due Goal Mentl Hlth/Subst Abuse Scrn-ie. optl [employer]. Due on due Goal Td vaccine. Due on due Goal Zoster vaccine. Due on due Goal Consider PSA Scr eening. Due on due Goal FOBT. Due on due Goal Colonoscopy. Due on 017 due Goal Zoster vaccine. Due on due Goal Tdap. Due on due Goal FOBT. Due on due Goal Consider PSA Scr eening. Due on due Goal Td vaccine. Due on 16 due Goal Mentl Hlth/Subst Abuse Scrn-ie. optl [employer]. Due on due Goal Influenza vaccin e. Due on due Goal Lipid panel. Due on due Goal Colonoscopy. Due on due Goal Tdap. Due on due Goal Zoster vaccine. Due on due Goal Influenza vaccin e. Due on due Goal Lipid panel. Due on due Goal Colonoscopy. Due on due Goal FOBT. Due on due Goal Consider PSA Scr eening. Due on due Goal Td vaccine. Due on 16 due Goal Mentl Hlth/Subst Abuse Scrn-ie. optl [employer]. Due on due Referral Ordered: MRI, Lower Extremity, Joint (hip, Knee, Ankle), Wo Contrast Right knee ordered Referral Ordered: Xray, Knee Ortho 4 Views Right knee ordered Future Order: Radiology Order MR I, Lower Extremity, Joint (hip, Knee, Ankle), Wo Contrast Right knee ([id number]), Body Site: knee, Sent on: Sent Future Order: Radiology Order Xr ay, Knee Ortho 4 Views Right knee ([id number]), Body Site: knee, Sent on: Sent History Of Present Illness Encounter Date Complaint History Of Prese nt Illness *Left Knee Pain Patient presetns left knee pain. He c/o snapping and clicking on the sides of his knee with some swelling and throbbing; stating that it happens when he's about to stand. He has tried Ice and IBuprofen. Pain level: 2/10Patient has difficulty climbing one flight of stairs or walking a full city block. They have tried anti-inflammatories, rest, and activity modification. Right knee scope post op Pt had scope done on right knee on 07/29/16. First post-op visit Pain level 2/10 today knee pain Onset: 4 months ago. It occurs constantly and is worsening. Location: right knee. There is no radiation. The pain is sharp. Context: there is no injury. The pain is aggravated by climbing (and descending) stairs and movement. The pain is relieved by rest. Associated symptoms include joint instability and popping. Pertinent negatives include decreased mobility, joint tenderness, locking, numbness, swelling and weakness. *right knee pain Continued right knee pain. The patient states that his pain is unchanged from his last visit. He is here to discuss the results of the MRI he had done at [facility] on 06/03/16. right knee pain Onset: 3 months ago. Severity level is moderate-severe. It occurs intermittently and is worsening. Location: right knee. There is no radiation. The pain is aching and burning. Context: there is no injury. The pain is aggravated by climbing (and descending) stairs, movement, pushing, walking and standing. The pain is relieved by heat, OTC medicines (ibuprofen) and rest. Associated symptoms include decreased mobility, difficulty initiating sleep, joint instability, joint tenderness, limping, locking, nocturnal awakening, popping, swelling and weakness. Pertinent negatives include bruising, crepitus, nocturnal pain, numbness, spasms, tingling in the arms and tingling in the legs. Additional information: He describes nighttime pain, startup pain and pain going up and down stairs. Instructions Date Instruction Additional Infor danuta No Information Assessments Type Assessment Date No Information
--- OUTSIDE RECORDS SUMMARY | 2025-01-25 06:09 | XMS_ITS | Continuity of Care Document ---
Author Name [facility] Organization [facility] Care Team Providers Care Truck Despatcher Name Role Phone [facility] Unavailable Unavailable Problems Combined list of problems from Department of Defense and Veterans Affairs facilities. It does not include entries that were removed or entered in error. Problem Status Onset Date Problem Type Date of Resolution Comments Source Exposure to potentially hazardous substance ([facility] [id number]) Active 024 Condition Sep 01, 2023 Entered By: JONNY JULIEN Comment: [facility] [place] Documentation Initiative [facility] Neck pain, arthralgia, cervical spine Active 011 Condition Oct 12, 2011 Entered By: SHELBY LIM Comment: DISCECTOMY 2010 [facility] Vitamin D Deficiency Inactive 009 Condition 03/11/2017 [facility] Coronary Artery Disease Active 998 Condition Oct 12, 2011 Entered By: SHELBY LIM Comment: CABG X 4 VESSELS [facility] Low Back Pain Active 984 Condition Oct 12, 2011 Entered By: SHELBY LIM Comment: LAMINECTOMY X 4 LAST TIME 2008 [facility] Atherosclerosis of coronary artery without angina pectoris (SNOMED CT 819990134983531) Active Condition Jul 28 7 Entered By: BERT CHU Comment: CABG; 4 vessel; 2006 Entered By: BERT CHU Comment: inf. MS and ischemia, EF 55% MPS 08/03 [facility] Back pain (SNOMED CT 505529522) Active Condition Jul 28, 2006 Entered By: BERT CHU Comment: L5 diskFeb 2006 Entered By: BERT CHU Comment: s/p surgery 1983, 1984, 2006 Entered By: BERT CHU Comment: LESI 2006 Entered By: BERT CHU Comment: tight spinal stenosis, NF stenosis L5-S1 MRI 11/30 [facility] Benign essential hypertension (SNOMED CT 4906560) Active Condition [facility] Blood in urine Active Condition [facility] CAD - Coronary Artery Disease (SCT [id number]) Active Condition Jan 262022 Entered By: PAYTON SAMPSON RD D Comment: Hx. CABG. [place] [facility] Cannabis abuse Active Condition [facility] Cervicalgia (SNOMED CT 96224306) Active Condition Jul 28, 2006 Entered By: BERT CHU Comment: s/p cervical fusion 1985 [facility] Chronic back pain (SNOMED CT 255763850) Active Condition [place] [facility] Claudication Active Condition [place] [facility] Cognitive Disorder NOS Active Condition [facility] Constipation Active Condition [place] [facility] Dysphagia (SNOMED CT 13365158) Active Condition [place] [facility] Gastroesophageal reflux disease Active Condition [facility] Gastroesophageal Reflux Disorder Active Condition [facility] Hearing loss * (ICD-9-CM 389.9) Active Condition [facility] Hernia Active Condition Feb 18 Entered By: PAYTON SAMPSON RD D Comment: Surgery x2. [place] [facility] HTN - Hypertension (SCT 08489861) Active Condition [place] [facility] Hydrocele Active Condition [facility] Hyperlipidemia Active Condition [facility] Hyperlipidemia (SCT 77332744) Active Condition [place] [facility] Insomnia, unspecified Active Condition [facility] Iron deficiency anemia (SNOMED CT 06622956) Active Condition [place] [facility] MITRAL VALVE DISORDER Active Condition [facility] Neck injury (SNOMED CT 58366931) Active Condition [place] [facility] Osteoarthritis of right knee joint Active Condition [place] [facility] PAD - Peripheral arterial disease (SNOMED CT 546136783) Active Condition Jul Entered By: BERT CHU Comment: s/p stent left leg 2019 Entered By: SAÚL SANTIAGO Comment: 08/16/2019 stent left popliteal artery intor mid femoral artery-drug eluting balloon angioplasty [facility] Paresthesia * (ICD-9-CM 782.0) Active Condition [facility] Peripheral arterial occlusive disease Active Condition [place] [facility] Solitary nodule of lung Active Condition May 16, 2023 Entered By: JUAN JOSE HANLEY Comment: right base 1.7cmSep 2023 Entered By: JUAN JOSE HANLEY Comment: Stable bilobed perifissural or nodule unchanged from 04/2023 3 repeat 1 yearSep 2023 Entered By: JUAN JOSE HANLEY Comment: Stable 02/2024 repeat 1 year [place] [facility] TOBACCO USE CURRENT Active Condition [facility] ACUTE BRONCHITIS Inactive Condition 07/23/2010 [facility] Acute sinusitis (ICD-9-CM 461.9) Inactive Condition 03/11/[facility] ACUTE URI NOS Inactive Condition 07/24/2010 [facility] Anemia * (ICD-9-CM 285.9) Inactive Condition 12/12/2017 [facility] Benign essential hypertension Inactive Condition 12/15/[facility] CANCER SCREENING Inactive Condition 03/11/20172006 Entered By: BERT CHU Comment: colonoscopy 2001 (normal)Jul 28, 2006 Entered By: BERT CHU Comment: SILVER 10/31 [facility] Cerv Spondylos w Myelop Inactive Condition 12/15/2017 [facility] CHEST PAIN NOS Inactive Condition 03/11/2017 [facility] Dizziness * (ICD-9-CM 780.4) Inactive Condition 03/11/2017 [facility] Dyspepsia * (ICD-9-CM 536.8) Inactive Condition 12/12/2017 [facility] HYPERCHOLESTEROLEMIA Inactive Condition 12/12/2017 [facility] Impacted cerumen * (ICD-9-CM 380.4) Inactive Condition 03/11/2017 [facility] Olecranon bursitis (ICD-9-CM 726.33) Inactive Condition 03/11/2017 [facility] Orthostatic Hypotension * (ICD-9-CM 458.0) Inactive Condition 03/11/2017 [facility] Osteoarthritis Inactive Condition 03/11/2017 Jul 28, 2006 Entered By: BERT CHU Comment: cervical spineFeb 2006 Entered By: BERT CHU Comment: lumbar spineFeb 2006 Entered By: BERT CHU Comment: left hip [facility] Pseudophakia Inactive Condition 12/15/2017 [facility] Diagnosis: ICD-10-CM I25.10 Athscl heart disease of [place] coronary artery w/o ang pctrs Active Diagnosis [facility] Diagnosis: ICD-10-CM M13.0 Polyarthritis, unspecified Active Diagnosis [facility] Diagnosis: ICD-10-CM M79.675 Pain in left toe(s) Active Diagnosis [facility] Diagnosis: ICD-10-CM G89.29 Other chronic pain Active Diagnosis [facility] Diagnosis: ICD-10-CM Z23 Encounter for immunization Active Diagnosis [facility] Diagnosis: ICD-10-CM R60.0 Localized edema Active Diagnosis [facility] Diagnosis: ICD-10-CM R93.89 Abnormal findings on dx imaging of oth body structures Active Diagnosis [facility] Diagnosis: ICD-10-CM I10 Essential (primary) hypertension Active Diagnosis [facility] Diagnosis: ICD-10-CM M17.11 Unilateral primary osteoarthritis, right knee Active Diagnosis [facility] Diagnosis: ICD-10-CM Z01.30 Encounter for exam of blood pressure w/o abnormal findings Active Diagnosis [facility] Diagnosis: ICD-10-CM I95.9 Hypotension, unspecified Active Diagnosis [facility] Diagnosis: ICD-10-CM Z46.1 Encounter for fitting and adjustment of hearing aid Active Diagnosis [place] [facility] Diagnosis: ICD-10-CM H90.3 Sensorineural hearing loss, bilateral Active Diagnosis [place] [facility] Diagnosis: ICD-10-CM H61.22 Impacted cerumen, left ear Active Diagnosis [facility] Diagnosis: ICD-10-CM Z71.89 Other specified counseling Active Diagnosis [facility] Diagnosis: ICD-10-CM L02.214 Cutaneous abscess of groin Active Diagnosis [facility] Diagnosis: ICD-10-CM M54.50 Low back pain, unspecified Active Diagnosis [facility] Diagnosis: ICD-10-CM M54.12 Radiculopathy, cervical region Active Diagnosis [facility] Diagnosis: ICD-10-CM R20.2 Paresthesia of skin Active Diagnosis [facility] Medications Combined list of outpatient medications from Department of Defense and Veterans Affairs facilities.Medications provided include 1) outpatient medications from the last 15 months, and 2) patient-reported medications. Medication Details Route Status Patient Instructions Prescription Expires Prescription Number Last Dispense Date Ordering Provider Order Date Order Qty Source ATORVASTATI N CA 80MG TAB TAKE ONE TABLET BY MOUTH EVERY EVENING FOR HIGH CHOLESTE ROL ORAL ACTIVE 02/28/2025 [id number] 5 JUAN JOSE HANLEY [address] [place] [address] [facility] ATORVASTATI N CA 80MG TAB TAKE ONE TABLET BY MOUTH EVERY EVENING FOR HIGH CHOLESTE ROL ORAL DISCONT INUED 02/19/2024 [id number] NOEMY SAMPSON [address] [place] [address] [facility] BACLOFEN 10MG TAB TAKE ONE TABLET BY MOUTH THREE TIMES A DAY NEEDED FOR MUSCLE SPASM ORAL SUSPEND ED 03/06/2025 [id number] 5 JUAN JOSE HANLEY [address] [place] [address] [facility] BACLOFEN 10MG TAB TAKE ONE TABLET BY MOUTH THREE TIMES A DAY NEEDED FOR MUSCLE SPASM ORAL DISCONT INUED 02/19/2024 [id number] 4 NOEMY SAMPSON [address] [place] [address] [facility] CARVEDILOL 6.25MG TAB TAKE ONE-HALF TABLET BY MOUTH TWICE A DAY FOR HIGH BLOOD PRESSURE TAKE WITH FOOD. ORAL ACTIVE 04/25/2025 [id number] 5 JUAN JOSE HANLEY [address] [place] [address] [facility] CARVEDILOL 6.25MG TAB TAKE ONE-HALF TABLET BY MOUTH TWICE A DAY FOR HIGH BLOOD PRESSURE TAKE WITH FOOD. ORAL DISCONT INUED 02/19/2024 [id number] NOEMY SAMPSON [address] [place] [address] [facility] CHOLECALCIF NATHALIE 25MCG (1,000UNIT) TAB TAKE ONE TABLET BY MOUTH ONCE A DAY FOR VITAMIN D DEFICIEN CY ORAL ACTIVE 03/13/2025 [id number] 5 JUAN JOSE HANLEY [address] [place] [address] [facility] CHOLECALCIF NATHALIE 25MCG (1,000UNIT) TAB TAKE ONE TABLET BY MOUTH ONCE A DAY FOR VITAMIN D DEFICIEN CY ORAL DISCONT INUED 02/19/2024 [id number] 4 NOEMY SAMPSON [address] [place] [address] [facility] CILOSTAZOL 100MG TAB TAKE ONE-HALF TABLET BY MOUTH TWICE A DAY FOR INTERMIT TENT CLAUDICA TION TAKE 30 MINUTES BEFORE OR AT LEAST 2 HOURS AFTER FOOD. DO NOT TAKE WITH GRAPEFRU IT JUICE. ORAL ACTIVE 04/25/2025 [id number] 5 JUAN JOSE HANLEY [address] [place] [address] [facility] CILOSTAZOL 100MG TAB TAKE ONE-HALF TABLET BY MOUTH TWICE A DAY FOR INTERMIT TENT CLAUDICA TION TAKE 30 MINUTES BEFORE OR AT LEAST 2 HOURS AFTER FOOD. DO NOT TAKE WITH GRAPEFRU IT JUICE. ORAL DISCONT INUED 02/19/2024 [id number] 4 NOEMY SAMPSON [address] [place] [address] [facility] CLOPIDOGREL BISULFATE 75MG TAB TAKE ONE TABLET BY MOUTH ONCE A DAY FOR ACUTE CORONARY SYNDROME ORAL SUSPEND ED 12/18/2025 [id number] 5 JUAN JOSE HANLEY [address] [place] [address] [facility] CLOPIDOGREL BISULFATE 75MG TAB TAKE ONE TABLET BY MOUTH ONCE A DAY FOR ACUTE CORONARY SYNDROME ORAL DISCONT INUED 03/13/2025 [id number] 5 JUAN JOSE HANLEY [address] [place] [address] [facility] CLOPIDOGREL BISULFATE 75MG TAB TAKE ONE TABLET BY MOUTH ONCE A DAY FOR ACUTE CORONARY SYNDROME ORAL DISCONT INUED 02/19/2024 [id number] 4 NOEMY SAMPSON [address] [place] [address] [facility] DICLOFENAC NA 1% GEL,TOP APPLY 4 GM TO AFFECTED AREA(S) FOUR TIMES A DAY APPLY TO SINGLE KNEE, ANKLE, FOOT. DO NOT EXCEED MORE THAN 16 GRAMS DAILY TO ANY LOWER EXTREMIT Y JOINT. NOT MORE THAN 8 GRAMS DAILY TO ANY UPPER EXTREMIT Y JOINT. MAX 32GM/DAY OVER ALL JOINTS. (MEASURE DOSE WITH RULER ATTACHED INSIDE BOX) TOPICA L ACTIVE 04/24/2025 [id number] 4 ANNALISAAMBROSIO 2023 [address] [place] [facility] FERROUS SO4 325MG TAB TAKE ONE TABLET BY MOUTH ONCE A DAY FOR IRON SUPPLEME NTATION. ORAL ACTIVE 08/21/2025 [id number] 5 JUAN JOSE HANLEY 2024 100 [place] [facility] FERROUS SO4 325MG TAB TAKE ONE TABLET BY MOUTH ONCE A DAY FOR IRON SUPPLEME NTATION. ORAL DISCONT INUED 10/11/2024 [id number] 5 JUAN JOSE HANLEY 2023 [address] [place] [facility] LEFLUNOMIDE 20MG TAB TAKE ONE TABLET BY MOUTH ONCE A DAY TAKE AT SAME TIME EACH DAY. ORAL SUSPEND ED 01/03/2026 [id number] 5 HARPAL VIEYRA 2024 90 [place] [facility] LEFLUNOMIDE 20MG TAB TAKE ONE TABLET BY MOUTH ONCE A DAY TAKE AT SAME TIME EACH DAY. ORAL DISCONT INUED 11/29/2025 [id number] 5 HARPAL VIEYRA 2024 90 [place] [facility] LEFLUNOMIDE 20MG TAB TAKE ONE TABLET BY MOUTH ONCE A DAY TAKE AT SAME TIME EACH DAY. ORAL DISCONT INUED 10/10/2025 [id number] 5 HARPAL VIEYRA 2024 30 [place] [facility] LISINOPRIL 20MG TAB TAKE ONE AND ONE-HALF TABLETS BY MOUTH ONCE A DAY FOR HIGH BLOOD PRESSURE ORAL ACTIVE 04/25/2025 [id number] 5 JUAN JOSE HANLEY 2023 [address] [place] [facility] LISINOPRIL 20MG TAB TAKE ONE AND ONE-HALF TABLETS BY MOUTH ONCE A DAY FOR HIGH BLOOD PRESSURE ORAL DISCONT INUED 02/19/2024 [id number] 4 NOEMY SAMPSON 2022 135 [facility] NALOXONE HCL 4MG/SPRAY SOLN,SPRAY, NASAL USE 1 SPRAY (4MG) INTO ONE NOSTRIL ONLY ONE-TIME FOR OPIOID OVERDOSE DO NOT PRIME NASAL SPRAY. SPRAY ONE DOSE IN ONE NOSTRIL, GIVE ADDITION AL DOSE IF PATIENT DOES NOT START BREATHIN G WITHIN 2-3 MINUTES OR STOPS BREATHIN G AGAIN. CALL 911. IF USED, NOTIFY PROVIDER . NASAL 10/23/2024 [id number] 5 [facility] 2024 2 [facility] OXYCODONE HCL 5MG/ACETAMI NOPHEN 325MG TAB TAKE 1 TO 2 TABS BY MOUTH EVERY 6 HOURS NEEDED FOR CHRONIC PAIN - NOTE: DO NOT EXCEED 4000MG PER DAY ACETAMIN OPHEN (APAP) ORAL DISCONT INUED BY PROVIDE R 08/24/2024 [id number] 5 [facility] 2024 120 [facility] PANTOPRAZOL E NA 40MG TAB,EC TAKE ONE TABLET BY MOUTH EVERY MORNING BEFORE A MEAL FOR GASTROES OPHAGEAL REFLUX DISEASE TAKE 30 MINUTES BEFORE MEAL(S) ORAL ACTIVE 10/16/2025 [id number] 5 [facility] 2024 90 [facility] PANTOPRAZOL E NA 40MG TAB,EC TAKE ONE TABLET BY MOUTH EVERY MORNING BEFORE A MEAL FOR GASTROES OPHAGEAL REFLUX DISEASE TAKE 30 MINUTES BEFORE MEAL(S) ORAL DISCONT INUED 01/31/2025 [id number] 5 [facility] 2023 90 [facility] PANTOPRAZOL E NA 40MG TAB,EC TAKE ONE TABLET BY MOUTH EVERY MORNING BEFORE A MEAL FOR GASTROES OPHAGEAL REFLUX DISEASE TAKE 30 MINUTES BEFORE MEAL(S) ORAL DISCONT INUED 02/19/2024 [id number] 4 NOEMY SAMPSON 2022 90 [facility] PREDNISONE 10MG TAB TAKE ONE-HALF TABLET BY MOUTH ONCE A DAY FOR SWELLING AND INFLAMMA TIONS TAKE WITH FOOD OR MILK. ORAL DISCONT INUED 09/20/2025 [id number] 5 HARPAL VIEYRA 2024 45 [place] [facility] PREDNISONE 10MG TAB TAKE TWO TABLETS BY MOUTH ONCE A DAY FOR 5 DAYS, THEN TAKE ONE TABLET EVERY MORNING FOR 5 DAYS, THEN TAKE ONE-HALF TABLET ONCE A DAY FOR SWELLING AND INFLAMMA TIONS TAKE WITH FOOD OR MILK. ORAL DISCONT INUED 09/20/2025 [id number] 5 TONAMIGUEALESSANDRAJAKE SampsonHARPALJAMAAL RODGERS 2024 90 [place] [facility] PREDNISONE 5MG TAB TAKE ONE TABLET BY MOUTH ONCE A DAY FOR JOINT PAIN. TAKE WITH FOOD OR MILK. ORAL ACTIVE 01/03/2026 [id number] 5 JARRELL HARPAL RODGERS 2024 90 [place] [facility] PREGABALIN 150MG CAP,ORAL TAKE ONE CAPSULE BY MOUTH TWICE A DAY FOR NERVE PAIN *MAY CAUSE DROWSINE SS* ORAL DISCONT INUED 07/05/2024 [id number] [facility] JUAN JOSE 2023 60 [facility] PREGABALIN 150MG CAP,ORAL TAKE ONE CAPSULE BY MOUTH TWICE A DAY FOR NERVE PAIN *MAY CAUSE DROWSINE SS* ORAL DISCONT INUED 01/26/2024 [id number] 4 DAYAN JUAN JOSE 2023 60 [facility] PREGABALIN 150MG CAP,ORAL TAKE ONE CAPSULE BY MOUTH TWICE A DAY FOR NERVE PAIN *MAY CAUSE DROWSINE SS* ORAL 01/02/2025 [id number] 5 [facility] 2024 60 [facility] Immunizations Combined list of available immunizations from the Department of Defense and [facility] facilities. Immunization Series Date Given Administered By Site Reaction Lot Number CVX Code Drug Motor Analyst Status Comments Source INFLUENZA, HIGH-DOSE, TRIVALENT, PF 2023 SHARI GRAY RIGHT DELTO ID [id number] 135 complet ed [facility] ZOSTER RECOMBINANT 2022 SHARI GRAY RIGHT DELTO ID [id number] 187 complet ed [facility] PNEUMOCOCCAL POLYSACCHARID E PPV23 1 2022 33 complet ed HISTORICA L INFORMATI ON - FROM OTHER [facility], [facility] N INFLUENZA VACCINE, QUADRIVALENT, ADJUVANTED 2021 205 complet ed [facility] INFLUENZA, INJECTABLE, QUADRIVALENT, PRESERVATIVE FREE 2020 150 complet ed [facility] ZOSTER RECOMBINANT 2 2020 187 complet ed [facility] ZOSTER RECOMBINANT 1 2020 187 complet ed [facility] INFLUENZA, SEASONAL, INJECTABLE, PRESERVATIVE FREE 2017 140 complet ed [facility] PNEUMOCOCCAL POLYSACCHARID E PPV23 2017 33 complet ed [employer] Lot R [id number] Exp: 20 Sep 2019 [facility] INFLUENZA, HIGH DOSE SEASONAL 2016 135 complet ed [facility] PNEUMOCOCCAL CONJUGATE PCV 13 2016 133 complet ed [employer],lot [id number],ex p-09/2017 [facility] TDAP 2016 115 complet ed [employer],lot [id number],exp -12/29/2018 [facility] INFLUENZA, SEASONAL, INJECTABLE 2015 141 complet ed [facility] PNEUMOCOCCAL POLYSACCHARID E PPV23 2015 33 complet ed [facility] INFLUENZA, SEASONAL, INJECTABLE, PRESERVATIVE FREE 2014 140 complet ed [facility] TDAP 2014 115 complet ed [facility] INFLUENZA, UNSPECIFIED FORMULATION 2013 88 complet ed [facility] TETANUS/DIPTH ERIA/PERTUSSI S (TDAP) (HISTORICAL) 2012 NONE 115 complet ed [id number] exp 02/14/15 [facility] INFLUENZA, UNSPECIFIED FORMULATION 2011 88 complet ed [facility] INFLUENZA, UNSPECIFIED FORMULATION 2010 88 complet ed [facility] INFLUENZA, UNSPECIFIED FORMULATION 2010 88 complet ed [facility] TD(ADULT) UNSPECIFIED FORMULATION 2009 139 complet ed [employer] Lot# [id number] Exp: 29 Aug 2011 [facility] NOVEL INFLUENZA-H1N 1-09, ALL FORMULATIONS 2009 128 complet ed [employer] [facility] INFLUENZA, UNSPECIFIED FORMULATION 2007 88 complet ed [facility] INFLUENZA, UNSPECIFIED FORMULATION 2006 88 complet ed [facility] PNEUMOCOCCAL, UNSPECIFIED FORMULATION 2006 109 complet ed HISTORICA L INFORMATI ON - FROM OTHER REGISTRY, [facility] DIV[facility] N INFLUENZA, UNSPECIFIED FORMULATION 2006 88 complet ed [facility] TD(ADULT) UNSPECIFIED FORMULATION 2000 139 complet ed [facility] PNEUMOCOCCAL POLYSACCHARID E PPV23 1998 33 complet ed [facility] Results Combined list of recent chemistry, hematology and other laboratory results from Department of Defense and Veterans Affairs, ranging from 15 months to all on record, depending upon the facility. Order Name Results Value Reference Range Date Interpretation Specimen Comments Source DRUG SCREEN URINE-inho use (PB) METHADONE [PRESENCE] IN URINE Negative 12/03 Specimen Type: URINE No comment entered. Ordering Provider: JUAN JOSE HANLEY Report Released Date/Time : Dec 03, 2024 11:50 AM Reporting Lab: [place] [facility] [address] [place] [address] Performin g Lab: [place] [facility] [address] [place] [address] [facility] DRUG SCREEN URINE-inho use (PB) OPIATES [PRESENCE] IN URINE BY SCREEN METHOD Negative 12/03 Specimen Type: URINE No comment entered. Ordering Provider: JUAN JOSE HANLEY Report Released Date/Time : Dec 03, 2024 11:50 AM Reporting Lab: [place] [facility] [address] [place] [address] Performin g Lab: [place] [facility] [address] [place] [address] [facility] DRUG SCREEN URINE-inho use (PB) COCAINE [PRESENCE] IN URINE Negative 12/03 Specimen Type: URINE No comment entered. Ordering Provider: JUAN JOSE HANLEY Report Released Date/Time : Dec 03, 2024 11:50 AM Reporting Lab: [place] [facility] [address] [place] [address] Performin g Lab: [place] [facility] [address] [place] [address] [facility] DRUG SCREEN URINE-inho use (PB) TETRAHYDROC ANNABINOL [PRESENCE] IN URINE BY SCREEN METHOD Positive 12/03 Specimen Type: URINE No comment entered. Ordering Provider: JUAN JOSE HANLEY Report Released Date/Time : Dec 03, 2024 11:50 AM Reporting Lab: [place] [facility] [address] [place] [address] Performin g Lab: [place] [facility] [address] [place] [address] [facility] DRUG SCREEN URINE-inho use (PB) BENZODIAZEP YONI [PRESENCE] IN URINE BY SCREEN METHOD Negative 12/03 Specimen Type: URINE No comment entered. Ordering Provider: JUAN JOSE HANLEY Report Released Date/Time : Dec 03, 2024 11:50 AM Reporting Lab: [place] [facility] [address] [place] [address] Performin g Lab: [place] [facility] [address] [place] [address] [facility] DRUG SCREEN URINE-inho use (PB) AMPHETAMINE [PRESENCE] IN URINE BY SCREEN METHOD Negative 12/03 Specimen Type: URINE No comment entered. Ordering Provider: JUAN JOSE HANLEY Report Released Date/Time : Dec 03, 2024 11:50 AM Reporting Lab: [place] [facility] [address] [place] [address] Performin g Lab: [place] [facility] [address] [place] [address] [facility] DRUG SCREEN URINE-inho use (PB) CREATININE [MASS/VOLUM E] IN URINE 17.22 mg/dL 12/03 Specimen Type: URINE No comment entered. Ordering Provider: JUAN JOSE HANLEY Report Released Date/Time : Dec 03, 2024 11:50 AM Reporting Lab: [place] [facility] [address] [place] [address] Performin g Lab: [place] [facility] [address] [place] [address] [facility] DRUG SCREEN URINE-inho use (PB) OXYCODONE CUTOFF [MASS/VOLUM E] IN URINE FOR SCREEN METHOD Negative 12/03 Specimen Type: URINE No comment entered. Ordering Provider: JUAN JOSE HANLEY Report Released Date/Time : Dec 03, 2024 11:50 AM Reporting Lab: [place] [facility] [address] [place] [address] Performin g Lab: [place] [facility] [address] [place] [address] [facility] DRUG SCREEN URINE-inho use (PB) BUPRENORPHI NE [PRESENCE] IN URINE Negativen g/mL 12/03 Specimen Type: URINE No comment entered. Ordering Provider: JUAN JOSE HANLEY Report Released Date/Time : Dec 03, 2024 11:50 AM Reporting Lab: [place] [facility] [address] [place] [address] Performin g Lab: [place] [facility] [address] [place] [address] [facility] DRUG SCREEN URINE-inho use (PB) ETHANOL [MASS/VOLUM E] IN URINE <10mg/dL 0 - 20 12/03 L Specimen Type: URINE No comment entered. Ordering Provider: JUAN JOSE HANLEY Report Released Date/Time : Dec 03, 2024 11:50 AM Reporting Lab: [place] [facility] [address] [place] [id number] Performin g Lab: [place] [facility] [address] [place] [id number] [facility] DRUG SCREEN URINE-inho use (PB) FENTANYL [PRESENCE] IN URINE Negativen g/mL 12/03 Specimen Type: URINE No comment entered. Ordering Provider: JUAN JOSE HANLEY Report Released Date/Time : Dec 03, 2024 11:50 AM Reporting Lab: [place] [facility] [facility] [address] [place] [address] [facility]formin [facility]: [place] [facility] [address] [place] [address] 8 [facility] TSH (MA-PB) THYROTROPIN [UNITS/VOLU ME] IN SERUM OR PLASMA 0.779 u[IU]/mL 0.47 - 5 11/20 Specimen Type: SERUM No comment entered. Ordering Provider: JUAN JOSE HANLEY Report Released Date/Time : November 20, 2024 12:08 PM Reporting Lab: [place] [facility] [address] [place] [address] 8 [facility]formin [facility]: [place] [facility] [address] [place] [address] [facility] D-DIMER HS (MA-STL-PB ) FIBRIN D-DIMER FEU [MASS/VOLUM E] IN PLATELET POOR PLASMA BY IMMUNOASSAY 963 <499 - 499 11/20 H Specimen Type: PLASMA No comment entered. Ordering Provider: JUAN JOSE HANLEY Report Released Date/Time : November 20, 2024 12:08 PM Reporting Lab: [place] [facility] [address] [place] [address] 8 [facility]formin [facility]: [place] [facility] [address] [place] [address] 8 [facility] BRAIN NATRIURETI C PEPTIDE NATRIURETIC PEPTIDE B [MASS/VOLUM E] IN SERUM OR PLASMA 389 pg/mL 0 - 100 11/20 H Specimen Type: PLASMA No comment entered. Ordering Provider: JUAN JOSE HANLEY Report Released Date/Time : November 20, 2024 12:08 PM Reporting Lab: [place] [facility] [address] [place] [address] 8 [facility]formin [facility]: [place] [facility] [address] [place] [address] 8 [facility] HGA1C HEMOGLOBIN A1C/HEMOGLO BIN.TOTAL IN BLOOD 5.6 4.0 - 6.0 11/20 Specimen Type: BLOOD No comment entered. Ordering Provider: JUAN JOSE HANLEY Report Released Date/Time : November 20, 2024 12:08 PM Reporting Lab: [place] [facility] [address] [place] [address] 8 [facility]formin [facility]: [place] [facility] [address] [place] [address] 8 [facility] VITAMIN D, 25-HYDROXY 25-HYDROXYV ITAMIN D3 [MASS/VOLUM E] IN SERUM OR PLASMA 45.1 ng/mL 30 - 96 11/20 Specimen Type: SERUM No comment entered. Ordering Provider: JUAN JOSE HANLEY Report Released Date/Time : November 20, 2024 12:08 PM Reporting Lab: [place] [facility] [address] [place] [address] 8 Performin [facility]: [place] [facility] [address] [place] [address] 8 [facility] CHOLESTERO L PANEL (PB) CHOLESTEROL [MASS/VOLUM E] IN SERUM OR PLASMA 166 mg/dL 0 - 200 11/20 Specimen Type: PLASMA No comment entered. Ordering Provider: JUAN JOSE HANLEY Report Released Date/Time : November 20, 2024 12:08 PM Reporting Lab: [place] [facility] [address] [place] [address] 8 [facility]formin [facility]: [place] [facility] [address] [place] [address] 8 [facility] CHOLESTERO L PANEL (PB) TRIGLYCERID E [MASS/VOLUM E] IN SERUM OR PLASMA 93 mg/dL 0 - 150 11/20 Specimen Type: PLASMA No comment entered. Ordering Provider: JUAN JOSE HANLEY Report Released Date/Time : November 20, 2024 12:08 PM Reporting Lab: [place] [facility] [address] [place] [address] 8 [facility]formin [facility]: [place] [facility] [address] [place] [address] 8 [facility] CHOLESTERO L PANEL (PB) CHOLESTEROL IN LDL [MASS/VOLUM E] IN SERUM OR PLASMA BY CALCULATION 72.4 mg/dL 11/20 Specimen Type: PLASMA No comment entered. Ordering Provider: JUAN JOSE HANLEY Report Released Date/Time : November 20, 2024 12:08 PM Reporting Lab: [place] [facility] [address] [place] [address] 8 [facility]formin [facility]: [place] [facility] [address] [place] [address] 8 [facility] CHOLESTERO L PANEL (PB) CHOLESTEROL IN HDL [MASS/VOLUM E] IN SERUM OR PLASMA 75.0 mg/dL 40 11/20 H Specimen Type: PLASMA No comment entered. Ordering Provider: JUAN JOSE HANLEY Report Released Date/Time : November 20, 2024 12:08 PM Reporting Lab: [place] [facility] [address] [place] [address] 8 [facility]formin [facility]: [place] [facility] [address] [place] [address] 8 [facility] CHOLESTERO L PANEL (PB) CHOLESTEROL IN HDL/CHOLEST NATHALIE.TOTAL [MASS RATIO] IN SERUM OR PLASMA 45.2 25 11/20 Specimen Type: PLASMA No comment entered. Ordering Provider: JUAN JOSE HANLEY Report Released Date/Time : November 20, 2024 12:08 PM Reporting Lab: [place] [facility] [address] [place] [address] 8 [facility]formin [facility]: [place] [facility] [address] [place] [address] 8 [facility] COMPREHENS ISAURO METABOLIC PANEL CREATININE [MASS/VOLUM E] IN SERUM OR PLASMA 0.92 mg/dL 0.7 - 1.3 11/20 Specimen Type: PLASMA No comment entered. Ordering Provider: JUAN JOSE HANLEY Report Released Date/Time : November 20, 2024 12:08 PM Reporting Lab: [place] [facility] [address] [place] [address] 8 Performin g [facility]: [place] [facility] [address] [place] [address] 8 [facility] COMPREHENS ISAURO METABOLIC PANEL UREA NITROGEN [MASS/VOLUM E] IN SERUM OR PLASMA 16 mg/dL 9 - 11/20 Specimen Type: PLASMA No comment entered. Ordering Provider: JUAN JOSE HANLEY Report Released Date/Time : November 20, 2024 12:08 PM Reporting Lab: [place] [facility] [address] [place] [address] 8 [facility]formin g [facility]: [place] [facility] [address] [place] [address] 8 [facility] COMPREHENS ISAURO METABOLIC PANEL GLUCOSE [MASS/VOLUM E] IN SERUM OR PLASMA 95 mg/dL 72 - 99 11/20 Specimen Type: PLASMA No comment entered. Ordering Provider: JUAN JOSE HANLEY Report Released Date/Time : November 20, 2024 12:08 PM Reporting Lab: [place] [facility] [address] [place] [address] 8 Performin [facility]: [place] [facility] [address] [place] [address] 8 [facility] COMPREHENS ISAURO METABOLIC PANEL SODIUM [MOLES/VOLU ME] IN SERUM OR PLASMA 144 meq/L 136 - 145 11/20 Specimen Type: PLASMA No comment entered. Ordering Provider: JUAN JOSE HANLEY Report Released Date/Time : November 20, 2024 12:08 PM Reporting Lab: [place] [facility] [address] [place] [address] 8 Performin g [facility]: [place] [facility] [address] [place] [address] 8 [facility] COMPREHENS ISAURO METABOLIC PANEL POTASSIUM [MOLES/VOLU ME] IN SERUM OR PLASMA 5.1 meq/L 3.5 - 5 11/20 H Specimen Type: PLASMA No comment entered. Ordering Provider: JUAN JOSE HANLEY Report Released Date/Time : November 20, 2024 12:08 PM Reporting Lab: [place] [facility] [address] [place] [address] 8 Performin [facility]: [place] [facility] [address] [place] [address] 8 [facility] COMPREHENS ISAURO METABOLIC PANEL CHLORIDE [MOLES/VOLU ME] IN SERUM OR PLASMA 109 meq/L 98 - 107 11/20 H Specimen Type: PLASMA No comment entered. Ordering Provider: JUAN JOSE HANLEY Report Released Date/Time : November 20, 2024 12:08 PM Reporting Lab: [place] [facility] [address] [place] [address] 8 Performin g [facility]: [place] [facility] [address] [place] [address] 8 [facility] COMPREHENS ISAURO METABOLIC PANEL CARBON DIOXIDE, TOTAL [MOLES/VOLU ME] IN SERUM OR PLASMA 27 meq/L 22 - 31 11/20 Specimen Type: PLASMA No comment entered. Ordering Provider: JUAN JOSE HANLEY Report Released Date/Time : November 20, 2024 12:08 PM Reporting Lab: [place] [facility] [address] [place] [address] 8 Performin g [facility]: [place] [facility] [address] [place] [address] 8 [facility] COMPREHENS ISAURO METABOLIC PANEL CALCIUM [MASS/VOLUM E] IN SERUM OR PLASMA 9.2 mg/dL 8.4 - 10.4 11/20 Specimen Type: PLASMA No comment entered. Ordering Provider: JUAN JOSE HANELY Report Released Date/Time : November 20, 2024 12:08 PM Reporting Lab: [place] [facility] [address] [place] [address] 8 [facility]formin [facility]: [place] [facility] [address] [place] [address] 8 [facility] COMPREHENS ISAURO METABOLIC PANEL PROTEIN [MASS/VOLUM E] IN SERUM OR PLASMA 6.1 g/dL 6 - 8.6 11/20 Specimen Type: PLASMA No comment entered. Ordering Provider: JUAN JOSE HANLEY Report Released Date/Time : November 20, 2024 12:08 PM Reporting Lab: [place] [facility] [address] [place] [address] 8 Performin g [facility]: [place] [facility] [address] [place] [address] 8 [facility] COMPREHENS ISAURO METABOLIC PANEL ALBUMIN [MASS/VOLUM E] IN SERUM OR PLASMA 3.8 g/dL 3.4 - 5 11/20 Specimen Type: PLASMA No comment entered. Ordering Provider: JUAN JOSE HANLEY Report Released Date/Time : November 20, 2024 12:08 PM Reporting Lab: [place] [facility] [address] [place] [address] 8 Performin g [facility]: [place] [facility] [address] [place] [address] 8 [facility] COMPREHENS ISAURO METABOLIC PANEL BILIRUBIN.T OTAL [MASS/VOLUM E] IN SERUM OR PLASMA 0.4 mg/dL 0.2 - 1.2 11/20 Specimen Type: PLASMA No comment entered. Ordering Provider: JUAN JOSE HANLEY Report Released Date/Time : November 20, 2024 12:08 PM Reporting Lab: [place] [facility] [address] [place] [address] 8 Performin g [facility]: [place] [facility] [address] [place] [address] 8 [facility] COMPREHENS ISAURO METABOLIC PANEL ALKALINE PHOSPHATASE [ENZYMATIC ACTIVITY/VO LUME] IN SERUM OR PLASMA 71 U/L 40 - 150 11/20 Specimen Type: PLASMA No comment entered. Ordering Provider: JUAN JOSE HANLEY Report Released Date/Time : November 20, 2024 12:08 PM Reporting Lab: [place] [facility] [address] [place] [address] 8 Performin g [facility]: [place] [facility] [address] [place] [address] 8 [facility] COMPREHENS ISAURO METABOLIC PANEL ASPARTATE AMINOTRANSF ERASE [ENZYMATIC ACTIVITY/VO LUME] IN SERUM OR PLASMA 18 U/L 5 - 34 11/20 Specimen Type: PLASMA No comment entered. Ordering Provider: JUAN JOSE HANLEY Report Released Date/Time : November 20, 2024 12:08 PM Reporting Lab: [place] [facility] [address] [place] [address] 8 Performin g Lab: [place] [facility] [address] [place] [address] 8 [facility] COMPREHENS ISAURO METABOLIC PANEL ALANINE AMINOTRANSF ERASE [ENZYMATIC ACTIVITY/VO LUME] IN SERUM OR PLASMA 17 U/L 8 - 40 11/20 Specimen Type: PLASMA No comment entered. Ordering Provider: JUAN JOSE HANLEY Report Released Date/Time : November 20, 2024 12:08 PM Reporting Lab: [place] [facility] [address] [place] [address] 8 [facility]formin g [facility]: [place] [facility] [address] [place] [address] 8 [facility] COMPREHENS ISAURO METABOLIC PANEL GLOMERULAR FILTRATION RATE/1.73 SQ M.PREDICTED [VOLUME RATE/AREA] IN SERUM, PLASMA OR BLOOD BY CREATININE- BASED FORMULA (CKD-EPI 2020) 88 11/20 Specimen Type: PLASMA No comment entered. Ordering Provider: JUAN JOSE HANLEY Report Released Date/Time : November 20, 2024 12:08 PM Reporting Lab: [place] [facility] [address] [place] [address] 8 Performin g [facility]: [place] [facility] [address] [place] [address] 8 [facility] CBC LEUKOCYTES [#/VOLUME] IN BLOOD BY AUTOMATED COUNT 5.2 10*3/uL 3.6 - 11.2 11/20 Specimen Type: BLOOD No comment entered. Ordering Provider: JUAN JOSE HANLEY Report Released Date/Time : November 20, 2024 12:08 PM Reporting Lab: [place] [facility] [address] [place] [address] 8 Performin g Lab: [place] [facility] [address] [place] [address] 8 [facility] CBC ERYTHROCYTE S [#/VOLUME] IN BLOOD BY AUTOMATED COUNT 4.48 10*6/uL 4.10 - 5.70 11/20 Specimen Type: BLOOD No comment entered. Ordering Provider: JUAN JOSE HANLEY Report Released Date/Time : November 20, 2024 12:08 PM Reporting Lab: [place] [facility] [address] [place] [address] 8 Performin g [facility]: [place] [facility] [address] [place] [address] 8 [facility] CBC HEMOGLOBIN [MASS/VOLUM E] IN BLOOD 13.3 g/dL 13.1 - 16.8 11/20 Specimen Type: BLOOD No comment entered. Ordering Provider: JUAN JOSE HANLEY Report Released Date/Time : November 20, 2024 12:08 PM Reporting Lab: [place] [facility] [address] [place] [address] 8 [facility]formin g [facility]: [place] [facility] [address] [place] [address] 8 [facility] CBC HEMATOCRIT [VOLUME FRACTION] OF BLOOD 43.1 38.2 - 48.4 11/20 Specimen Type: BLOOD No comment entered. Ordering Provider: JUAN JOSE HANLEY Report Released Date/Time : November 20, 2024 12:08 PM Reporting Lab: [place] [facility] [address] [place] [address] 8 Performin g [facility]: [place] [facility] [address] [place] [address] 8 [facility] CBC MCV [ENTITIC VOLUME] BY AUTOMATED COUNT 96.2 fL 80.0 - 100.0 11/20 Specimen Type: BLOOD No comment entered. Ordering Provider: JUAN JOSE HANLEY Report Released Date/Time : November 20, 2024 12:08 PM Reporting Lab: [place] [facility] [address] [place] [address] 8 Performin g [facility]: [place] [facility] [address] [place] [address] 8 [facility] CBC MCH [ENTITIC MASS] BY AUTOMATED COUNT 29.7 pg 27.0 - 34.0 11/20 Specimen Type: BLOOD No comment entered. Ordering Provider: JUNA JOSE HANLEY Report Released Date/Time : November 20, 2024 12:08 PM Reporting Lab: [place] [facility] [address] [place] [address] 8 Performin g Lab: [place] [facility] [address] [place] [address] 8 [facility] CBC MCHC [MASS/VOLUM E] BY AUTOMATED COUNT 30.9 g/dL 33.0 - 36.0 11/20 L Specimen Type: BLOOD No comment entered. Ordering Provider: JUAN JOSE HANLEY Report Released Date/Time : November 20, 2024 12:08 PM Reporting Lab: [place] [facility] [address] [place] [address] 8 [facility]formin g [facility]: [place] [facility] [address] [place] [address] 8 [facility] CBC PLATELETS [#/VOLUME] IN BLOOD BY AUTOMATED COUNT 157 10*3/uL 150 - 400 11/20 Specimen Type: BLOOD No comment entered. Ordering Provider: JUAN JOSE HANLEY Report Released Date/Time : November 20, 2024 12:08 PM Reporting Lab: [place] [facility] [address] [place] [address] 8 Performin g [facility]: [place] [facility] [address] [place] [address] 8 [facility] CBC PLATELET MEAN VOLUME [ENTITIC VOLUME] IN BLOOD BY AUTOMATED COUNT 10.9 fL 7.5 - 11.2 11/20 Specimen Type: BLOOD No comment entered. Ordering Provider: JUAN JOSE HANLEY Report Released Date/Time : November 20, 2024 12:08 PM Reporting Lab: [place] [facility] [address] [place] [address] 8 [facility]formin [facility]: [place] [facility] [address] [place] [address] 8 [facility] CBC ERYTHROCYTE DISTRIBUTIO N WIDTH [RATIO] BY AUTOMATED COUNT 15.6 11.8 - 15.1 11/20 H Specimen Type: BLOOD No comment entered. Ordering Provider: JUAN JOSE HANLEY Report Released Date/Time : November 20, 2024 12:08 PM Reporting Lab: [place] [facility] [address] [place] [address] 8 [facility]formin g [facility]: [place] [facility] [address] [place] [address] 8 [facility] CBC LYMPHOCYTES /100 LEUKOCYTES IN BLOOD BY AUTOMATED COUNT 14.1 11/20 Specimen Type: BLOOD No comment entered. Ordering Provider: JUAN JOSE HANLEY Report Released Date/Time : November 20, 2024 12:08 PM Reporting Lab: [place] [facility] [address] [place] [address] 8 [facility]formin [facility]: [place] [facility] [address] [place] [address] 8 [facility] CBC MONOCYTES/1 00 LEUKOCYTES IN BLOOD BY AUTOMATED COUNT 3.5 11/20 Specimen Type: BLOOD No comment entered. Ordering Provider: JUAN JOSE HANLEY Report Released Date/Time : November 20, 2024 12:08 PM Reporting Lab: [place] [facility] [address] [place] [address] 8 [facility]formin g [facility]: [place] [facility] [address] [place] [address] 8 [facility] CBC NEUTROPHILS /100 LEUKOCYTES IN BLOOD BY AUTOMATED COUNT 80.4 11/20 Specimen Type: BLOOD No comment entered. Ordering Provider: JUAN JOSE HANLEY Report Released Date/Time : November 20, 2024 12:08 PM Reporting Lab: [place] [facility] [address] [place] [address] 8 [facility]formin [facility]: [place] [facility] [address] [place] [address] 8 [facility] CBC EOSINOPHILS /100 LEUKOCYTES IN BLOOD BY AUTOMATED COUNT 0.6 11/20 Specimen Type: BLOOD No comment entered. Ordering Provider: JUAN JOSE HANLEY Report Released Date/Time : November 20, 2024 12:08 PM Reporting Lab: [place] [facility] [address] [place] [address] 8 [facility]formin g [facility]: [place] [facility] [address] [place] [address] 8 [facility] CBC BASOPHILS/1 00 LEUKOCYTES IN BLOOD BY AUTOMATED COUNT 0.8 11/20 Specimen Type: BLOOD No comment entered. Ordering Provider: JUAN JOSE HANLEY Report Released Date/Time : November 20, 2024 12:08 PM Reporting Lab: [place] [facility] [address] [place] [address] 8 [facility]formin [facility]: [place] [facility] [address] [place] [address] 8 [facility] CBC LYMPHOCYTES [#/VOLUME] IN BLOOD BY AUTOMATED COUNT 0.73 10*3/uL 0.77 - 4.50 11/20 L Specimen Type: BLOOD No comment entered. Ordering Provider: JUAN JOSE HANLEY Report Released Date/Time : November 20, 2024 12:08 PM Reporting Lab: [place] [facility] [address] [place] [address] 8 [facility]formin [facility]: [place] [facility] [address] [place] [address] 8 [facility] CBC MONOCYTES [#/VOLUME] IN BLOOD BY AUTOMATED COUNT 0.18 10*3/uL 0.19 - 0.8 11/20 L Specimen Type: BLOOD No comment entered. Ordering Provider: JUAN JOSE HANLEY Report Released Date/Time : November 20, 2024 12:08 PM Reporting Lab: [place] [facility] [address] [place] [address] 8 [facility]formin [facility]: [place] [facility] [address] [place] [address] 8 [facility] CBC NEUTROPHILS [#/VOLUME] IN BLOOD BY AUTOMATED COUNT 4.18 10*3/uL 2.10 - 8.00 11/20 Specimen Type: BLOOD No comment entered. Ordering Provider: JUAN JOSE HANLEY Report Released Date/Time : November 20, 2024 12:08 PM Reporting Lab: [place] [facility] [address] [place] [address] 8 [facility]formin [facility]: [place] [facility] [address] [place] [address] 8 [facility] CBC EOSINOPHILS [#/VOLUME] IN BLOOD BY AUTOMATED COUNT 0.03 10*3/uL 0.00 - 0.60 11/20 Specimen Type: BLOOD No comment entered. Ordering Provider: JUAN JOSE HANLEY Report Released Date/Time : November 20, 2024 12:08 PM Reporting Lab: [place] [facility] [address] [place] [address] 8 [facility]: [place] [facility] [address] [place] [address] 8 [facility] CBC BASOPHILS [#/VOLUME] IN BLOOD BY AUTOMATED COUNT 0.04 10*3/uL 0.00 - 0.20 11/20 Specimen Type: BLOOD No comment entered. Ordering Provider: JUAN JOSE HANLEY Report Released Date/Time : November 20, 2024 12:08 PM Reporting Lab: [place] [facility] [address] [place] [address] 8 [facility]: [place] [facility] [address] [place] [address] 8 [facility] CBC IMMATURE GRANULOCYTE S/100 LEUKOCYTES IN BLOOD BY AUTOMATED COUNT 0.6 11/20 Specimen Type: BLOOD No comment entered. Ordering Provider: JUAN JOSE HANLEY Report Released Date/Time : November 20, 2024 12:08 PM Reporting Lab: [place] [facility] [address] [place] [address] 8 [facility]: [place] [facility] [address] [place] [address] 8 [facility] CBC IMMATURE GRANULOCYTE S [#/VOLUME] IN BLOOD BY AUTOMATED COUNT 0.03 10*3/uL 0.00 - 0.05 11/20 Specimen Type: BLOOD No comment entered. Ordering Provider: JUAN JOSE HANLEY Report Released Date/Time : November 20, 2024 12:08 PM Reporting Lab: [place] [facility] [address] [place] [address] 8 [facility]: [place] [facility] [address] [place] [address] 8 [facility] URIC ACID URATE [MASS/VOLUM E] IN SERUM OR PLASMA 7.1 mg/dL 3.5 - 7.2 10/26 Specimen Type: PLASMA No comment entered. Ordering Provider: JUAN JOSE HANLEY Report Released Date/Time : October 26, 2024 11:11 AM Reporting Lab: [place] [facility] [address] [place] [address] Performin g Lab: [place] [facility] [address] [place] [address] [facility] Vital Signs Combined list of inpatient and outpatient Vital Signs from Department of Defense and Veterans Affairs, ranging from 12 months to all on record, depending upon the facility. Vital Sign Value Date Comments Source SYSTOLIC BLOOD PRESSURE 135 01/25/2025 10:05:00 [facility] [place] DIASTOLIC BLOOD PRESSURE 67 01/25/2025 10:05:00 [place] [facility] PULSE OXIMETRY 92 % 01/25/2025 10:05:00 [place] [facility] WEIGHT 176.6 01/25/2025 10:05:00 [facility] BMI 29 kg/m2 01/25/2025 10:05:00 [place] [facility] PAIN 9 01/25/2025 10:05:00 [place] [facility] TEMPERATURE 97.6 01/25/2025 10:05:00 [facility] [place] PULSE 52 01/25/2025 10:05:00 [place] [facility] RESPIRATION 18 01/25/2025 10:05:00 [place] [facility] SYSTOLIC BLOOD PRESSURE 122 12/03/2024 11:32:00 [place] [facility] DIASTOLIC BLOOD PRESSURE 68 12/03/2024 11:32:00 [place] [facility] PULSE OXIMETRY 91 12/03/2024 11:32:00 [facility] [place] [facility] WEIGHT 176.9 12/03/2024 11:32:00 [place] BMI 29 kg/m2 12/03/2024 11:32:00 [facility] PAIN 9 12/03/2024 11:32:00 [facility] HEIGHT 66.0 12/03/2024 11:32:00 [place] [facility] TEMPERATURE 97.4 12/03/2024 11:32:00 [facility] PULSE 50 12/03/2024 11:32:00 [place] [facility] RESPIRATION 17 12/03/2024 11:32:00 [place] [facility] SYSTOLIC BLOOD PRESSURE 105 11/20/2024 12:00:39 [place] [facility] DIASTOLIC BLOOD PRESSURE 64 11/20/2024 12:00:39 [place] [facility] PULSE OXIMETRY 95 11/20/2024 12:00:39 [facility] [place] [facility] WEIGHT 177.5 11/20/2024 12:00:39 [place] [facility] BMI 29 kg/m2 11/20/2024 12:00:39 [place] [facility] PAIN 7 11/20/2024 12:00:39 [place] [facility] PULSE 64 11/20/2024 12:00:39 [place] [facility] RESPIRATION 22 11/20/2024 12:00:39 [place] [facility] SYSTOLIC BLOOD PRESSURE 127 10/26/2024 11:01:05 [place] [facility] DIASTOLIC BLOOD PRESSURE 64 10/26/2024 11:01:05 [place] [facility] PULSE OXIMETRY 92 10/26/2024 11:01:05 [facility] [place] [facility] WEIGHT 173 10/26/2024 11:01:05 [place] [facility] BMI 28 kg/m2 10/26/2024 11:01:05 [place] [facility] TEMPERATURE 98.4 10/26/2024 11:01:05 [place] [facility] PULSE 78 10/26/2024 11:01:05 [place] [facility] RESPIRATION 19 10/26/2024 11:01:05 [place] [facility] SYSTOLIC BLOOD PRESSURE 123 07/24/2024 12:04:00 [place] [facility] DIASTOLIC BLOOD PRESSURE 62 07/24/2024 12:04:00 [place] [facility] PULSE OXIMETRY 90 07/24/2024 12:04:00 [facility] [place] [facility] WEIGHT 181.3 07/24/2024 12:04:00 [place] [facility] BMI 29 kg/m2 07/24/2024 12:04:00 [place] [facility] PAIN 10 07/24/2024 12:04:00 [facility] TEMPERATURE 97.9 07/24/2024 12:04:00 [place] [facility] PULSE 67 07/24/2024 12:04:00 [facility] RESPIRATION 17 07/24/2024 12:04:00 [place] [facility] Encounters Combined list of: 1) Encounters from Department of Veterans Affairs facilities going backup to the last 18 months, not all VA inpatient encounters are included; 2) Encounters from the Department of Defense facilities going backup to 280 months. Location Location Details Encounter Type Encounter Number Reason For Visit Attending Provider ADM Date DC Date Status [facility] [id number] Diagnos is: ICD-10- CM H61.22 Impacte d cerumen , left ear RED,ROBE RT P 07/28 [facility] [place] [facility] [place] [id number] Diagnos is: ICD-10- CM H61.22 Impacte d cerumen , left ear RED,ROBE RT P 07/28 [place] [facility] Outpatient Encounter [id number] 08/01 [facility] OFF/OP EST MAY X REQ PHY/QHP [id number] Diagnos is: ICD-10- CM R20.2 Paresth esia of skin GAITAN,DELL SANTANA D 08/02 [facility] OFFICE O/P EST LOW 20 MIN [id number] Diagnos is: ICD-10- CM M54.12 Radicul opathy, cervica l region DAYAN,T ALEXANDRIA 08/04 [facility] Outpatient Encounter [id number] 08/12 [facility] Outpatient Encounter [id number] [id number] 08/17 [facility] Outpatient Encounter [id number] [id number] 08/18 [facility] Outpatient Encounter [id number] [id number] 08/18 [facility] Outpatient Encounter [id number] [id number] 08/24 [facility] Outpatient Encounter [id number] [id number] [facility] OFFICE O/P EST LOW 20 MIN [id number] Diagnos is: ICD-10- CM M54.50 Low back pain, unspeci fied Morena HANLEY [facility] [id number] [id number] 09/01 [facility] Outpatient Encounter [id number] [id number] 09/01 [facility] Outpatient Encounter [id number] [id number] 09/11 [facility] Outpatient Encounter [id number] [id number] 09/22 [facility] Outpatient Encounter [id number] [id number] 09/27 [facility] Outpatient Encounter [id number] [id number] 09/28 [facility] HC PRO PHONE CALL 5-10 MIN [id number] Diagnos is: ICD-10- CM R93.89 Abnorma l finding s on dx imaging of oth body structu res CINTHIA HOLLAND R 09/28 [facility] Encounter [id number] 09/29 [facility] Outpatient Encounter [id number] [id number] 09/29 [facility] OFF/OP EST MAY X REQ PHY/QHP [id number] Diagnos is: ICD-10- CM L02.214 Cutaneo us abscess of groin CINTHIA HOLLAND R 09/29 [facility] Outpatient Encounter [id number] [id number] MARIELLA LION L 10[facility]02 [facility] En[facility] [id number] [id number] 10/02 [facility] Outpatient Encounter [id number] [id number] 10/03 [facility] [place] [facility] Outpatient Encounter [id number] 10/03 [place] [facility] HC PRO PHONE CALL 5-10 MIN [id number] Diagnos is: ICD-10- CM Z71.89 Other specifi ed associate counsel ing CINTHIA HOLLAND R 10/09 [facility] Outpatient Encounter [id number] [id number] CINTHIA HOLLAND R 10/11 [facility] Outpatient Encounter [id number] [id number] 10/12 [facility] Outpatient Encounter [id number] [id number] 11/29 [facility] OFF/OP EST MAY X REQ PHY/QHP [id number] [id number] Diagnos is: ICD-10- CM H61.22 Impacte d cerumen , left ear UDAY UNDERWOOD 12[facility]ALTH FACILITY FEE [id number] [id number] Diagnos is: ICD-10- CM H90.3 Sensori neural hearing loss, bilater al RED,ROBE RT P 12/07 [facility] [place] [facility] HEARING AID EXAM BOTH EARS [id number] [id number] Diagnos is: ICD-10- CM H90.3 Sensori neural hearing loss, bilater al RED,ROBE RT P 12/07 [place] [facility] Outpatient Encounter [id number] 12/14 [facility] Outpatient Encounter [id number] [id number] 12/14 [facility] Outpatient Encounter [id number] [id number] 12/18 [facility] [place] [facility] Outpatient Encounter [id number] [id number] 12/26 [place] [facility] [place] [facility] Outpatient Encounter [id number] [id number] 01/01 [place] [facility] [place] [facility] Outpatient Encounter [id number] [id number] 01/01 [place] [facility] Outpatient Encounter [id number] [id number] 01/02 [facility] [place] [facility] Outpatient Encounter [id number] [id number] 01/15 [place] [facility] TELEHEALTH FACILITY FEE [id number] Diagnos is: ICD-10- CM Z46.1 Encount er for fitting and adjustm ent of hearing aid MARIA LUISA RED RT P 01/17 [facility] UNLISTED MISC PROSTHETIC SER [id number] [id number] Diagnos is: ICD-10- CM Z46.1 Encount er for fitting and adjustm ent of hearing aid MARIA LUISA RED RT P 01/17 [facility] Outpatient Encounter [id number] [id number] 01/18 [facility] Outpatient Encounter [id number] [id number] 01/22 [facility] HC PRO PHONE CALL 5-10 MIN [id number] Diagnos is: ICD-10- CM I95.9 Hypoten tripp, unspeci fied CINTHIA HOLLAND R 01/23 [facility] Outpatient Encounter [id number] [id number] 01/29 [facility] OFF/OP EST OCTOBER X REQ PHY/QHP [id number] Diagnos is: ICD-10- CM Z01.30 Encount er for exam of blood pressur e w/o abnorma l finding s CINTHIA HOLLAND R 01/30 [facility] Encounter [id number] [id number] 01/30 [facility] Outpatient Encounter [id number] [id number] 02/13 [facility] Outpatient Encounter [id number] [id number] 02/14 [place] [facility] Outpatient Encounter [id number] [id number] 02/15 [facility] OFFICE O/P EST MOD 30 MIN [id number] [id number] Diagnos is: ICD-10- CM M17.11 Unilate ral primary osteoar thritis , right knee Morena HANLEY 02/15 [facility] Outpatient Encounter [id number] [id number] 02/15 [facility] Outpatient Encounter [id number] [id number] 02/19 [facility] HC PRO PHONE CALL 5-10 MIN [id number] Diagnos is: ICD-10- CM I10 Essenti al (primar y) hyperte nsion CINTHIA HOLLAND 02/23 [facility] Outpatient Encounter [id number] [id number] 02/27 [facility] Outpatient Encounter [id number] [id number] 02/28 [facility] [facility] En[facility] [id number] [id number] 02/28 [place] [facility] Outpatient Encounter [id number] [id number] 03/05 [facility] HC PRO PHONE CALL 5-10 MIN [id number] Diagnos is: ICD-10- CM R93.89 Abnorma l finding s on dx imaging of oth body structu res CINTHIA HOLLAND 03/20 [facility] [place] [facility] Outpatient Encounter [id number] [id number] 03/29 [place] [facility] Outpatient Encounter [id number] [id number] 04/04 [facility] HC PRO PHONE CALL 5-10 MIN [id number] Diagnos is: ICD-10- CM R60.0 Localiz ed edema CINTHIA HOLLAND R 04/04 [facility] Outpatient Encounter [id number] [id number] MARIELLA LION 04/05 [facility] Outpatient Encounter [id number] [id number] 04/23 [facility] [place] [facility] Outpatient Encounter [id number] [id number] 04/23 [place] [facility] Outpatient Encounter [id number] [id number] 04/24 [facility] Outpatient Encounter [id number] [id number] 04/24 [facility] Outpatient Encounter [id number] [id number] 05/01 [facility] Outpatient Encounter [id number] [id number] 05/03 [facility] IMMUNIZATI ON ADMIN [id number] Diagnos is: ICD-10- CM Z23 Encount er for immuniz atURFUS [place] IELLE L 05/09 [facility] Outpatient Encounter [id number] [id number] 06/05 [facility] Outpatient Encounter [id number] [id number] 06/06 [facility] Outpatient Encounter [id number] [id number] 07/04 [facility] Outpatient Encounter [id number] [id number] 07/04 [facility] Outpatient Encounter [id number] [id number] 07/04 [facility] Outpatient Encounter [id number] [id number] 07/05 [facility] Outpatient Encounter [id number] [id number] 07/11 [facility] Outpatient Encounter [id number] [id number] UDAY UNDERWOOD 07/18 [facility] OFFICE O/P EST LOW 20 MIN [id number] Diagnos is: ICD-10- CM G89.29 Other chronic pain Morena HANLEY 07/24 [facility] Encounter [id number] [id number] 07/24 [facility] Outpatient Encounter [id number] [id number] 07/26 [facility] Outpatient Encounter [id number] [id number] MARIELLA LION 07/30 [facility] Outpatient Encounter [id number] [id number] 08/29 [facility] Outpatient Encounter [id number] [id number] 09/17 [facility] Outpatient Encounter [id number] [id number] 09/20 [facility] Outpatient Encounter [id number] [id number] 09/21 [facility] Outpatient Encounter [id number] [id number] 09/25 [facility] Outpatient Encounter [id number] [id number] ANDREARIVERA ZAKIA L 10/08 [facility] Outpatient Encounter [id number] [id number] 10/11 [facility] OFF/OP EST MAY X REQ PHY/QHP [id number] Diagnos is: ICD-10- CM M79.675 Pain in left toe(s) Hanna TURNER 10/26 [facility] OFFICE O/P EST LOW 20 MIN [id number] Diagnos is: ICD-10- CM M13.0 Polyart hritis, unspeci Morena Chambers 10/26 [facility] Outpatient Encounter [id number] [id number] 11/09 [facility] Outpatient Encounter [id number] [id number] 11/15 [facility] Outpatient Encounter [id number] [id number] 11/15 [facility] OFF/OP EST MAY X REQ PHY/QHP [id number] KATHERINEOG VALERIA Amezquita 11/20 [facility] O/P EST MOD 30 MIN [id number] [id number] Diagnos is: ICD-10- CM 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 Morena HANLEY ALEXANDRIA 11/20 [facility] Outpatient Encounter [id number] 11/20 [facility] Encounter [id number] [id number] 11/21 [facility] Outpatient Encounter [id number] [id number] RADHA WILCOX 11/21 [facility] Outpatient Encounter [id number] [id number] 11/21 [facility] Outpatient Encounter [id number] [id number] 11/21 [facility] Outpatient Encounter [id number] [id number] AYADMARIELLA RIL L 11/22 [facility] Outpatient Encounter [id number] [id number] 11/26 [facility] Outpatient Encounter [id number] [id number] HARSHAD ORTEGA IE L 11/30 [facility] OFFICE O/P EST LOW 20 MIN [id number] Diagnos is: ICD-10- CM I25.10 Athscl heart disease of nond[place] coronar y artery w/o ang pctMorena Cary 12/03 [facility] Outpatient Encounter [id number] [id number] 12/10 [facility] Outpatient Encounter [id number] [id number] 12/12 [facility] Outpatient Encounter [id number] [id number] 12/19 [facility] Outpatient Encounter [id number] [id number] 01/16 [facility] Social History Combined list of available smoking, tobacco, and other social history from Department of Defense and [facility] facilities. Social History Type Response Date Comment Sour e Tobacco smoking status NHIS VA-TOBACCO FORMER USER 02/16/2024 [facility] History of tobacco use VA-TOBACCO QUIT 1 5 YRS OR MORE 02/16/2024 [facility] History of tobacco use VA-TOBACCO QUIT 1 5 YRS OR MORE 02/18/2023 [facility] History of tobacco use VA-TOBACCO FORMER USER 08/24/2022 [facility] History of tobacco use VA-TOBACCO FORMER USER 11/12/2021 [facility] History of tobacco use VA-TOBACCO FORMER USER 01/08/2021 [facility] History of tobacco use VA-TOBACCO FORMER USER 11/06/2019 [facility] History of tobacco use VA-TOBACCO FORMER USER 06/09/2018 [facility] History of tobacco use FORMER TOBACCO US ER 7Y OR GREATER 11/30/2017 [facility] History of tobacco use FORMER TOBACCO US ER 7Y OR GREATER 12/21/2016 [facility] History of tobacco use QUIT TOBACCO >7 Y EARS AGO 04/30/2015 [facility] History of tobacco use QUIT TOBACCO >7 Y EARS AGO 12/07/2013 [facility] History of tobacco use QUIT TOBACCO >12 MO and <7 YRS AGO 08/22/2013 [facility] History of tobacco use LIFETIME NON-USER OF TOBACCO 08/30/2012 [facility] History of tobacco use QUIT TOBACCO >7 Y EARS AGO 10/12/2011 [facility] History of tobacco use FORMER TOBACCO US E >1Y <7Y 08/12/2010 [facility] History of tobacco use FORMER TOBACCO US E >1Y <7Y 03/03/2010 [facility] History of tobacco use FORMER TOBACCO US E >1Y <7Y 02/05/2009 [facility] History of tobacco use CURRENT TOBACCO USER 08/28/2007 [facility] History of tobacco use CURRENT TOBACCO USER 07/27/2006 [facility] Plan of Care List of future care activities from Department [facility] facilities. Additional future care activities may be listed in the Assessment and Plan section. Date/Time Care Activity Care Activity Detail Facili ty 01/25/2025 AMBULATORY - MEDICINE AMBULATORY - MEDICI NE [facility] Advance Directives List of completed, amended, or rescinded Advance Directives on record at Department [facility] facilities. An actual copy of the Directive is not included. Date Advance Directive Provider Source 10/19/2011 ADVANCE DIRECTIVE DISCUSSION OG [facility] 07/27/2006 ADVANCE DIRECTIVE SWAPNA CRABTREELOS [facility]
[2025-01-25 11:05] VITALS: BP 162/75; PULSE 58; RESP 16; TEMP 36.5; O2SAT 95; BMI 25.4
--- OUTSIDE RECORDS SUMMARY | 2025-01-25 11:17 | XMS_ITS | Encounter Summary ---
Author Organization [facility] Address [address] [place] [address] Care Team Providers Care Lavatory Attendant Name Role Phone Anitha Miller MD Primary Care Provider Unavailab le Encounter Details Date Type Department Care Team (Latest Contact Info) Description 09/17/2003 Outpatient Historical [facility] Cardiac Thoracic Vascular Surg [place] [address] [address] Jeison Johnson II, MD [address] [place] [address] [phone] CORON ATHEROSCL SHUNG[place]K CORON VESSEL (Primary Dx) Social History Tobacco Use Types Packs/Day Years Used Date Smoking Tobacco: Never Assessed Sex and Gender Information Value Date Recorded Sex Assigned at Not on file 

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
--- OUTSIDE RECORDS SUMMARY | 2025-01-25 11:17 | XMS_ITS | Encounter Summary ---
Author Organization [facility] Address [address] [place] [address] Care Team Providers Care Copy Reader Name Role Phone Anitha Miller MD Primary Care Provider Unavailab le Encounter Details Date Type Department Care Team (Late st Contact Info) Description 12/16/2014 Ancillary Orders [facility] Orthopedics - Orthopedic [facility] [address] [place] [phone] Jaime Qiu MD [address] [place] [phone] Pain (Primary Dx) Social History Tobacco Use Types Packs/Day Years Used Date Smoking Tobacco: Former Cigarettes Q uit: 08/14/2007 Smokeless Tobacco: Never Alcohol Use Standard Drinks/Week Comments Yes 0 (1 standard drink = 0.6 oz pur e alcohol) Sex and Gender Information Value Date Recorded Sex Assigned at Not on file 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
--- OUTSIDE RECORDS SUMMARY | 2025-01-25 11:17 | XMS_ITS | Encounter Summary ---
Author Organization [facility] Address [address] [place] [address] Care Team Providers Care Network Operations Lead Name Role Phone Anitha Miller MD Primary Care Provider Unavailab le Encounter Details Date Type Department Care Team (Late st Contact Info) Description 01/01/2004 Emergency [facility] Emergency Department [address] 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
--- OUTSIDE RECORDS SUMMARY | 2025-01-25 11:17 | XMS_ITS | Encounter Summary ---
Author Organization [facility] Address [address] [place]co: [place] [address] Care Team Providers Care Hammer Operator Name Role Phone Anitha Miller MD Primary Care Provider Unavailab le Encounter Details Date Type Department Care Team (Late st Contact Info) Description 08/12/2003 Inpatient [facility] [place] Jeison Amezquita MD [address] [place] [phone] SUBENDO FIRST EPISODE CARE (CMS/[facility]) (Primary Dx) Social History Tobacco Use Types Packs/Day Years Used Date Smoking Tobacco: Never Assessed Sex and Gender Information Value Date Recorded Sex Assigned at Not on file 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
[2025-01-25] MEDS: lidocaine-epi 1% 20 mL INJ INJECTION (11:57)
[2025-01-25] MEDS: sulfamethoxazole-trimeth DS 160-800 mg Tablet 1 TAB PO (11:58)
[2025-01-25] MEDS: HYDROcodone-acetaminophen 5-325 mg Tablet 1 TAB PO (11:58)
--- NOTE | 2025-01-25 12:07 | W.ED.WOUNDLC ---
HPI - Wound/Laceration General: Chief Complaint: Wound/Laceration Stated Complaint: open wound by testicles Time Seen by Provider: 01/25/25 11:13 History of Present Illness: Patient is a 74-year-old male who presents with a complaint of an open wound over his left scrotum. The patient reports having pain in the area for approximately one month but only recently noticed drainage from the site, which prompted him to seek medical attention. He initially went to the [place] [facility] today before coming to our ED. The patient denies any fever, abdominal pain, or testicular pain. He reports a history of stent placement in the genital area several years ago but is unsure of the exact timeframe. The patient denies any previous similar episodes of scrotal abscess. He is requesting pain medication for discomfort associated with the wound. Related Data Home Medications ?Medication ?Instructions ?Recorded ?Confirmed atorvastatin 80 mg tablet 80 mg PO QPM 07/23/23 01/08/25 carvedilol 6.25 mg tablet 3.125 mg PO BID 07/23/23 01/08/25 cholecalciferol (vitamin D3) 25 25 mcg PO DAILY 07/23/23 01/08/25 mcg (1,000 unit) tablet cilostazol 100 mg tablet 100 mg PO BID 07/23/23 01/08/25 clopidogrel 75 mg tablet 75 mg PO DAILY 07/23/23 01/08/25 docusate sodium 100 mg capsule 100 mg PO BID 07/23/23 01/08/25 (Colace) ferrous sulfate 325 mg (65 mg 162.5 mg PO QAM 07/23/23 01/08/25 iron) tablet lisinopril 20 mg tablet 30 mg PO DAILY 07/23/23 01/08/25 pantoprazole 40 mg tablet,delayed 40 mg PO QAM 07/23/23 01/08/25 release pregabalin 75 mg capsule (Lyrica) 75 mg PO BID 07/23/23 01/08/25 sennosides 8.6 mg tablet (senna) 8.6 mg PO DAILY 07/23/23 12/19/24 oseltamivir 75 mg capsule mg PO 12/19/24 01/08/25 baclofen 10 mg tablet 10 mg PO BID Muscle Spasm 01/08/25 01/08/25 Previous Rx's ?Medication ?Instructions ?Recorded diclofenac sodium 1 % topical gel 4 g topical QID #100 grams 04/23/24 hinged knee brace #1 ea 04/23/24 benzonatate 200 mg capsule 200 mg PO TID PRN cough #20 caps 07/28/24 albuterol sulfate 90 mcg/actuation 2 inh inhalation Q4H PRN shortness 11/21/24 aerosol inhaler of breath or wheezing #8.5 grams leflunomide 20 mg tablet 20 mg PO DAILY #90 tabs 01/02/25 prednisone 5 mg tablet 5 mg PO DAILY joint pain #90 tabs 01/02/25 amoxicillin 875 mg-potassium 1 tab PO BID #20 tabs 01/25/25 clavulanate 125 mg tablet hydrocodone 5 mg-acetaminophen 325 1 tab PO Q8H #10 tabs 01/25/25 mg tablet sulfamethoxazole 800 1 tab PO BID 7 days #14 tabs 01/25/25 mg-trimethoprim 160 mg tablet (Bactrim DS) Allergies Allergy/AdvReac Type Severity Reaction Status Date / Time No Known Allergies Allergy Verified 01/25/25 11:10 [facility] ED PFS: Medical History (Updated 01/25/25 @ 12:10 by Brennen Agudelo MD) Immunization counseling High risk medication use Polyarthralgia Anxiety Acute anxiety Anemia CAD (coronary artery disease) History of hypertension Hyperlipidemia Abdominal hernia Claudication PAD (peripheral artery disease) Stenosis of artery of left lower extremity Psychiatric care Fall at home Recurrent right knee instability Osteoarthritis of right knee Surgical History H/O gastric bypass x4 History of eye surgery History of neck surgery x2 History of shoulder surgery left History of cholecystectomy Previous back surgery x5 S/P hernia surgery Family History Other Anemia Cancer Hypertension Denies family history of Lupus (systemic lupus erythematosus) Rheumatoid arthritis Diabetes CAD (coronary artery disease) Migraines Chronic kidney disease (CKD) Stroke Social History Smoking and tobacco/nicotine status: former use of tobacco/nicotine Physical Exam Narrative: EXAM NARRATIVE: General: Alert, no acute distress HEENT: Head normocephalic and atraumatic. Mucous membranes moist. Neck: Supple. Respiratory: No increased work of breathing, no wheezing. Cardiac: Regular rate and rhythm, 2+ pulses in all extremities. Palpable pedal pulses and palpable femoral pulse. Abdomen: Soft, non-distended, no rebound or guarding. Genitourinary: Uncircumcised penis, normal appearance. Left side of scrotum with approximately 3 cm area of induration with a pinhole opening draining purulent fluid. No testicular pain or discomfort on examination. No thigh or inguinal redness, swelling, or induration. Course Vital Signs: Vital signs: Vital Signs Temperature 97.7 F 01/25/25 11:05 Pulse Rate 58 L 01/25/25 11:05 Respiratory Rate 16 01/25/25 11:05 Blood Pressure 162/75 01/25/25 11:05 Pulse Oximetry 95 01/25/25 11:05 Oxygen Delivery Me thod Room Air 01/25/25 11:05 MDM - Wound/Laceration Medical Decision Making ROS: Constitutional: Denies fever. Genitourinary: Complains of scrotal wound with drainage. Denies testicular pain. Gastrointestinal: Denies abdominal pain. Neurological: Reports headache. MEDICATIONS AND ALLERGIES: Meds: Patient states medication list was provided to the nurse at check-in. Allergies: No known drug allergies. INITIAL IMPRESSION AND PLAN: Given the history and presentation, the primary working diagnosis is left scrotal abscess with spontaneous drainage. Additional considerations include cellulitis, infected sebaceous cyst, or other soft tissue infection. Based on this initial impression, I will perform an incision and drainage of the abscess under local anesthesia, administer antibiotics (Augmentin and Bactrim DS), provide pain management with hydrocodone, and arrange follow-up with urology. PROCEDURES: PROCEDURE: Incision and Drainage of Left Scrotal Abscess CONSENT: Patient provided verbal consent for incision and drainage of the left scrotal abscess. ANESTHESIA: 5 mL of 1% lidocaine with epinephrine was infiltrated around the area of induration and the small opening. PREPARATION: The wound was cleansed with Betadine solution. PROCEDURE DETAILS: Using an 11-blade scalpel, a 2 cm incision was made over the area of induration and opening. Blunt dissection was performed with hemostats to break up loculations. The wound cavity was irrigated with 50 mL of sterile saline. Approximately 2 inches of 1/4 inch plain gauze packing was placed within the wound cavity. OUTCOME: Patient tolerated the procedure well without any complications. CONSIDERED BUT NOT PERFORMED: Testicular ultrasound CONSIDERED but NOT DONE due to no perceived benefit as patient had no testicular pain and physical exam findings were consistent with a superficial scrotal abscess rather than testicular or intrascrotal pathology. FINAL IMPRESSION: Based on all the above, my clinical impression is most compatible with left scrotal abscess with spontaneous drainage, requiring incision and drainage. The clinical picture is not currently suggestive of Aparna's gangrene, testicular torsion, epididymitis, or orchitis. Although other conditions were also considered, they were deemed unlikely based on the clinical information available. CLINICAL DISPOSITION: The patient's current condition is stable in my estimation and the most appropriate and indicated disposition at this time is discharge home with antibiotics, pain medication, and urology follow-up. RATIONALE: The patient is appropriate for discharge as the abscess has been adequately drained, he has no systemic symptoms of infection such as fever, and he demonstrates understanding of wound care instructions and return precautions. The patient has been started on appropriate oral antibiotics and has pain medication for comfort. Follow-up with urology has been arranged to ensure proper healing and to address any underlying urological issues. RISK STRATIFICATION AND CLINICAL DECISION RULES APPLIED: No formal clinical decision rules were applied in this case as the diagnosis was evident on physical examination and the treatment approach is standard for uncomplicated scrotal abscesses. CASE SUMMARY: 74-year-old male presented with a one-month history of scrotal pain and recent onset of drainage from the left scrotum. Physical examination revealed a 3 cm area of induration on the left scrotum with a pinhole opening draining purulent fluid. The patient was diagnosed with a left scrotal abscess. After obtaining verbal consent, an incision and drainage procedure was performed under local anesthesia. The wound was irrigated and packed with gauze. The patient was administered antibiotics (Augmentin and Bactrim DS) and provided with hydrocodone for pain management. The patient tolerated the procedure well and was discharged home with prescriptions for Augmentin 875 mg BID for 10 days, Bactrim DS one tablet BID for 7 days, and hydrocodone 5/325 mg every 6 hours as needed for pain. A case management request was placed for urology follow-up in [place], [place] or [place], [place]. The patient was provided with clear return precautions. No radiology studies performed this visit Discharge Plan Discharge Patient Disposition: Home Clinical Impression: Abscess of scrotum Condition: Stable Prescriptions: New amoxicillin-pot clavulanate 875-125 mg tablet 1 tab PO BID Qty: 20 0RF hydrocodone-acetaminophen 5-325 mg tablet 1 tab PO Q8H Qty: 10 0RF sulfamethoxazole-trimethoprim [Bactrim DS] 800-160 mg tablet 1 tab PO BID 7 Days Qty: 14 0RF No Action diclofenac sodium 1 % gel 4 g topical QID Qty: 100 3RF Rx Instructions: apply to single knee, ankle, foot; for foot includes sole/toes/top of foot (DME) hinged knee brace See Rx Instructions .Route .MEDSUPPLY Qty: 1 0RF Rx Instructions: As directed oseltamivir 75 mg capsule PO leflunomide 20 mg tablet 20 mg PO DAILY Qty: 90 1RF prednisone 5 mg tablet 5 mg PO DAILY Qty: 90 1RF benzonatate 200 mg capsule 200 mg PO TID PRN (Reason: cough) Qty: 20 0RF cilostazol 100 mg Tablet 100 mg PO BID atorvastatin 80 mg Tablet 80 mg PO QPM senna 8.6 mg Tablet 8.6 mg PO DAILY carvedilol 6.25 mg Tablet 3.125 mg PO BID Rx Instructions: must administer with a meal/food lisinopril 20 mg Tablet 30 mg PO DAILY clopidogrel 75 mg Tablet 75 mg PO DAILY pantoprazole 40 mg Tablet,Delayed Release (Dr/Ec) 40 mg PO QAM ferrous sulfate 325 mg (65 mg iron) Tablet 162.5 mg PO QAM Colace 100 mg Capsule 100 mg PO BID pregabalin [Lyrica] 75 mg capsule 75 mg PO BID cholecalciferol (vitamin D3) 25 mcg (1,000 unit) Tablet 25 mcg PO DAILY baclofen 10 mg tablet 10 mg PO BID albuterol sulfate 90 mcg/actuation HFA aerosol inhaler 2 inh inhalation Q4H PRN (Reason: shortness of breath or wheezing) Qty: 8.5 2RF Discharge Orders: Discharge ED (Routine); Ordered 01/25/25 Ordered By: Brennen Agudelo Referrals: Mary Sahu MD [Primary Care Provider, Family Practice] Patient Instructions: Abscess Incision and Drainage (DC), Opioid Safety, Pain Management, Patient Portal & Lesly Instructions Activity Restrictions/Additional Instructions: DIAGNOSIS: Left scrotal abscess MEDICATIONS: 1. Augmentin 875 mg: Take 1 tablet by mouth twice daily for 10 days 2. Bactrim DS: Take 1 tablet by mouth twice daily for 7 days 3. Hydrocodone 5/325 mg: Take 1 tablet by mouth every 6 hours as needed for pain WOUND CARE: 1. Keep the area clean and dry 2. You may shower normally but gently pat the area dry afterward 3. Do not remove the packing - this will be done at your follow-up appointment 4. Wear loose-fitting underwear to minimize friction and irritation FOLLOW-UP: A referral has been placed for you to see a urologist. However it is important that you contact urology in either [facility] or [facility] to facilitate expediting your appointment. RETURN TO THE EMERGENCY DEPARTMENT IMMEDIATELY IF YOU EXPERIENCE: 1. Fever over 101?F 2. Increasing redness, swelling, or warmth around the wound 3. Increasing pain not relieved by prescribed medication 4. Foul-smelling or increased drainage from the wound 5. Spreading redness beyond the original area 6. Testicular pain or swelling 7. 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
[2025-01-25 12:30] VITALS: BP 148/81; PULSE 84; O2SAT 93
--- NOTE | 2025-01-28 08:27 | DCPLANNER ---
faxed urology referral to [facility]
== END 2025-01-25 12:30 | disposition home or self-care (01) ==
PROVIDERS: Emergency Provider Student in an Organized Health Care Education/Training Program; PCP Family Medicine
DX: N49.2 Inflammatory disorders of scrotum (principal); Z79.02 Long term (current) use of antithrombotics/antiplatelets; Z87.891 Personal history of nicotine dependence; I25.10 Atherosclerotic heart disease of native coronary artery without angina pectoris; I10 Essential (primary) hypertension
CPT/HCPCS: 99283; J9999

== ENCOUNTER 2025-02-06 08:38 | Emergency (ER) | payer OTHER, SELFPAY ==
--- OUTSIDE RECORDS SUMMARY | 2023-12-12 06:17 | XMS_ITS | Continuity of Care Document ---
Author Organization [facility] Address [address] [place] [address] Phone Care Team Providers Care Energy Conservation Specialist Name Role Phone Vale Gallagher MD Unavailable Unavailable Allergies, Adverse Reactions, Alerts Substance Reaction Status Criticality No Known Allergies Active No Inform ation Medications Medication Instructions Dosage Effective Dates (start - stop) Status Comments Sutab 1.479-0.188-0.225 gram tablet FOLLOW INSTRUCTION THAT GET EMAILED TO YOU. - NO PA REQ WITH SUTAB COUPON. BIN:[id number] PCN:CN GROUP: [id number] ID:[id number] - COPAY IS $40. - Active Run Sutab coupon in place of PA- Not required with coupon, patient cost should be $40. BIN: [id number]: CNGROUP: [id number]: [id number] hydrocodone 7.5 mg-acetaminophen 325 mg tablet take [...] Location Reason(s) For Visit Diagnoses Date Provider [facility], [address] [place] [address], [facility], tel:[phone] [facility] [place] No Information 2023 Aileen Teixeiratonio. [address], [place], [place], [id number], [place]. tel:[phone] [facility], [address] [place] [address], [facility], [place] tel:[phone] [facility] Benign neoplasm of descending colonDvrtclos of lg int w/o perforation or abscess w/o bleedingBenign neoplasm of ascending colonOther hemorrhoids 2020 Toño Moraes. [address], [place], [place], [id number], [place]. tel:[phone] [facility], [address] [place] [address], [facility], [place] tel:[phone] [facility] [place] No Information 2020 Toño Moraes. [address], [place], [place], [id number], [place]. tel:[phone] [facility], [address] [facility], [place], [address], [place] tel:[phone] [facility] [place] *Left Knee Pain (chief complaint) Derangement of medial meniscus of left knee 2017 Gayle Hess. [address], [place], [place], [id number], [place]. tel:[phone] [facility], [address] [place] [address], [address], [place] tel:[phone] [facility] Right knee scope post op (chief complaint) Derangement of posterior horn of medial meniscus due to old tear or injury, right knee 2016 Gayle Hess. [address], [place], [place], [id number], [place]. tel:[phone] [facility] [address] [place] [address], [address], [place] tel:[phone] [facility] Oth tear of medial meniscus, current injury, r knee, subs 2016 Gayle Hess. [address], [place], [place], [id number], [place]. tel:[phone] [facility], [address] [place] [address], [address], [place] tel:[phone] [facility] knee pain (chief complaint) Derangement of posterior horn of medial meniscus due to old tear or injury, right kneeBody mass index (BMI) 40.0-44.9, adult 2016 Gayle Hess. [address], [place], [place], [id number], [place]. tel:[phone] [facility], [address] [place] [address], [address], [place] tel:[phone] [facility] [place] *right knee pain (chief complaint) Derangement of posterior horn of medial meniscus due to old tear or injury, right knee 2015 Gayle Hess. [address], [place], [place], [id number], [place]. tel:[phone] [facility], [address], [place], [place], [facility], tel:[phone] [facility] No Information 2015 Gayle Hess. [address], [place], [place], [id number], . tel:[phone] [facility], [address], [place], [facility], tel:[phone] [facility] [place] right knee pain (chief complaint) Right knee pain, unspecified chronicityTear of medial meniscus of right knee, unspecified tear type, unspecified whether old or current tear, initial encounter 2015 Gayle Hess. [address], [place], [place], [id number], . tel:[phone] Family History Family Member Type Diagnosis Age At Onset Mother Problem (finding) malignant neoplasm of u terus Maternal grandmother Problem (finding) Diabetes mellit Mother Problem (finding) breast cancer Payers Payer name Insurance type Covered democrat ID Authoriza tion(s) MEDICARE MB [id number] [facility] [id number] Social History Type Description Quantity Date Captured Comments Sex Male Smoking Status No Information Chief Complaint And Reason For Visit No Information Plan Of Treatment Date Type Action Status Goal Pneumo (2 yrs or older)(PPV)(IM or SC). Due on due Goal Influenza vaccin e. Due on due Goal Colonoscopy. Due on 021 due Goal Td vaccine. Due on due Goal Consider PSA Scr eening. Due on due Goal Diabetes screeni ng. Due on due Goal Medicare Annual Wellness Visit. Due on due Goal COVID-19 Vaccine . Due on due Goal FIT-DNA (Cologua rd). Due on due Goal FIT. Due on due Goal FOBT. Due on due Goal Glaucoma Screeni ng. Due on due Goal Tdap. Due on due Goal Zoster vaccine ( 1st). Due on due Goal Lipid panel. Due on due Goal MCR Annual Welln ess Visit. Due on due Goal Mentl Hlth/Subst Abuse Scrn-ie. optl [employer]. Due on due Goal Pneumococcal vac cine (Prevnar 13). Due on due Goal Consider PSA Scr eening. Due on due Goal FOBT. Due on due Goal Pneumococcal vac cine (Prevnar 13). Due on due Goal MCR Annual Welln ess Visit. Due on due Goal Colonoscopy. Due on due Goal Zoster vaccine. Due on due Goal Mentl Hlth/Subst Abuse Scrn-ie. optl [employer]. Due on due Goal Glaucoma Screeni ng. Due on due Goal Tdap. Due on due Goal Cologuard (unles s c-scope UTD). Due on due Goal Td vaccine. Due on 18 due Goal Influenza vaccin e. Due on due Goal Lipid panel. Due on 018 due Goal Colonoscopy. Due on 017 due [...] due Goal Colonoscopy. Due on due Goal Influenza vaccin e. Due on due Goal Tdap. Due on due Goal Lipid panel. Due on due Goal Mentl Hlth/Subst Abuse Scrn-ie. optl [employer]. Due on due Goal Td vaccine. Due on due Goal Zoster vaccine. Due on due Goal Consider PSA Scr eening. Due on due Goal FOBT. Due on due Goal Colonoscopy. Due on due Goal Lipid panel. Due on due Goal Influenza vaccin e. Due on due Goal Zoster vaccine. Due on due Goal Mentl Hlth/Subst Abuse Scrn-ie. optl [employer]. Due on due Goal Td vaccine. Due on 16 due Goal Consider PSA Scr eening. Due on due Goal FOBT. Due on due Goal Tdap. Due on due Goal Tdap. Due on due Goal Zoster vaccine. Due on due Goal Influenza vaccin e. Due on due Goal Mentl Hlth/Subst Abuse Scrn-ie. optl [employer]. Due on due Goal Td vaccine. Due on 16 due Goal Consider PSA Scr eening. Due on due Goal FOBT. Due on due Goal Colonoscopy. Due on due Goal Lipid panel. Due on 016 due Referral Ordered: MRI, Lower Extremity, Joint (hip, Knee, Ankle), Wo Contrast Right knee ordered Referral Ordered: Xray, Knee Ortho 4 Views Right knee ordered Future Order: Radiology Order MR I, Lower Extremity, Joint (hip, Knee, Ankle), Wo Contrast Right knee ([id number]), Body Site: knee, Sent on: Sent Future Order: Radiology Order Xr ay, Knee Ortho 4 Views Right knee ([id number]), Body Site: knee, Sent on: Sent History [...] of the MRI he had done at [facility] on 06/03/16. right knee pain Onset: 3 [...]
--- OUTSIDE RECORDS SUMMARY | 2024-12-03 06:30 | XMS_ITS | Encounter Summary ---
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 This section includes the names of all active insurance providers for the patient. Insurance Provider Type of Coverage Plan Name Start of Policy Coverage End of Policy Coverage Group Number Member ID Insurance Provider's Telephone Number Policy Miller's Name Patient's Relationship to Policy Miller MEDICARE (WNR) MEDICARE (M) PART A Apr 27, 1986 PART A [id number] GRISELARVIN ERT PATIENT MEDICARE (WNR) MEDICARE (M) PART B Apr 27, 1986 PART B [id number] ARVIN RECINOS ERT PATIENT MEDICARE (WNR) MEDICARE (M) PART A Apr 27, 1986 PART A [id number] GRISELARVIN ERT PATIENT MEDICARE (WNR) MEDICARE (M) PART B Apr 27, 1986 PART B [id number] ARVIN RECINOS ERT PATIENT MEDICARE (WNR) MEDICARE (M) PART A Apr 27, 1986 PART A [id number] [phone] [phone] ARVIN RECINOS ERT PATIENT MEDICARE (WNR) MEDICARE (M) PART B Apr 27, 1986 PART B [id number] [phone] [phone] ARVIN RECINOS ERT PATIENT MEDICARE (WNR) MEDICARE (M) PART A Apr 27, 1986 PART A [id number] [phone] ARVIN RECINOS ERT PATIENT MEDICARE (WNR) MEDICARE (M) PART B Apr 27, 1986 PART B [id number] ARVIN RECINOS ERT PATIENT MEDICARE (WNR) MEDICARE (M) PART A Apr 27, 1986 PART A [id number] [phone] ARVIN RECINOS ERT PATIENT MEDICARE (WNR) MEDICARE (M) PART B Apr 27, 1986 PART B [id number] [phone] ARVIN RECINOS ERT PATIENT MEDICARE (WNR) MEDICARE (M) PART A Apr 27, 1986 PART A [id number] [phone] ARVIN RECINOS ERT PATIENT MEDICARE (WNR) MEDICARE (M) PART B Apr 27, 1986 PART B [id number] [phone] ARVIN RECINOS ERT PATIENT Selected Encounter This section includes the information on record at [place] for the Encounter. Date/Time Encounter Type Encounter Description Reason Provider Source Dec 03, 2024 11:30 AM OFFICE O/P EST LOW 20 MIN PRIMARY CARE/MEDICINE ICD-10-CM I25.10 Athscl heart disease of [place] coronary artery w/o ang pctMARY [place] Encounter Template Text not used by [place] Assessments - Encounter Diagnoses This section includes the primary and secondary diagnoses documented for the Encounter. Date/Time Primary/Secondary Diagnosis Diagnosis Name Provider Source Dec 03, 2024 11:55 AM PRIMARY Athscl heart disease of [place] coronary artery w/o ang pctMARY CaryS [facility] Dec 03, 2024 11:55 AM SECONDARY Disorder of arteries and arterioles, unspecified [facility] SAHUS [facility] Dec 03, 2024 11:55 AM SECONDARY Low back pain, unspecified MARY SAHU [place] [facility] Dec 03, 2024 11:55 AM SECONDARY Unilateral primary osteoarthritis, right knee MARY SAHU [facility] Dec 03, 2024 11:55 AM SECONDARY Unspecified injury of neck, subsequent encounter MARY SAHU [facility] Plan of Treatment: Future Appointments (+ 6 months) and Future Tests (+/- 45 days) The Plan of Treatment section includes future care activities for the patient [facility] [place] [facility] This section includes future appointments and future orders which are active, pending or scheduled. Future Appointments This section includes appointments that were scheduled to occur 6 months from the date of the Encounter, up to a maximum of 20 appointments. The data comes from all [place] treatment facilities. Appointment Date/Time Appointment Type Appointme nt Facility Name Dec 19, 2024 03:15 PM AMBULATORY - MEDICINE [facility] [facility] [facility] Jan 08, 2025 03:15 PM AMBULATORY - MEDIC[facility] Jan 16, 2025 09:00 AM AMBULATORY - MEDIC[facility] Jan 25, 2025 09:30 AM AMBULATORY - MEDICINE [facility] Jan 25, 2025 11:02 AM AMBULATORY - MEDICINE [facility] Jan 25, 2025 11:30 AM AMBULATORY - MEDICINE [facility] Feb 11, 2025 02:30 PM AMBULATORY - MEDICINE [facility] Feb 26, 2025 11:00 AM AMBULATORY - MEDICINE [facility] Active, Pending, and Scheduled Orders This section includes a listing of several types of active, pending, and scheduled orders, including clinic medications orders, diagnostic test orders, procedure orders and consult orders; where the start date of the order is 45 days before the date of the Encounter or 45 days after the date of theEncounter. The data comes from all [facility]. 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 Lab Results: +/- 30 days of the encounter This section includes the Chemistry and Hematology Lab Results on record with [place] for the patient. Radiology Reports and Pathology Reports are provided separately, in subsequent sections. Lab Results This section contains the Chemistry/Hematology Results that were resulted 30 days before or 30 daysafter the date of the Encounter. Date/Time Source Result Type Result - Unit Interpretation Reference Range Specimen Type Comment Dec 03, 2024 11:50 AM [facility] DRUG SCREEN URINE-inhouse (PB) URINE Specimen Type: URINE No comment entered. Ordering Provider: MARY SAHU Report Released Date/Time: Dec 03, 2024 11:50 AM Reporting Lab: [facility] [facility] [address] [place] [address] Performing Lab: [place] [facility] [address] [place] [address] METHADONE Negative Negative OPIATES (PB) Negative Negative COCAINE... Negative Negative THC(Marijuana... Positive Negative BENZODIAZEPINE (PB) Negative Negative AMPHETAMINE... Negative Negative CREATININE URINE/OTHERS 17.22 mg/dL OXYCODONE (EKMWN-TYH-ED) Negative Negati ve BUPRENORPHINE (STL-PB-MA) Negative ng/mL Negative ETHANOL URINE <10 mg/dL L 0-20 FENTANYL, URINE (PB) Negative ng/mL November 20, 2024 12:08 PM [facility] D-DIMER HS (MA-STL-PB) PLASMA Specimen Type: P LASMA No comment entered. Ordering Provider: MARY SAHU Report Released Date/Time: November 20, 2024 12:08 PM Reporting Lab: [place] [facility] [address] [place] [address] Performing Lab: [place] [facility] [address] [place] [address] D-DIMER HS (MA-STL-PB) 963 H <499 November 20, 2024 12:08 PM [facility] TSH (MA-PB) SERUM Specimen Typ e: SERUM No comment entered. Ordering Provider: MARY SAHU Report Released Date/Time: November 20, 2024 12:08 PM Reporting Lab: [place] [facility] [address] [place] [address] Performing Lab: [place] [facility] [address] [place] [address] TSH 0.779 u[IU]/mL 0.47-5 November 20, 2024 12:08 PM [facility] BRAIN NATRIURETIC PEPTIDE PLASMA Specimen Type : PLASMA No comment entered. Ordering Provider: MARY ASHU Report Released Date/Time: November 20, 2024 12:08 PM Reporting Lab: [place] [facility] [address] [place] [address] Performing Lab: [place] [facility] [address] [place] [address] BRAIN NATRIURETIC PEPTIDE 389 pg/mL H 0-10 0 November 20, 2024 12:08 PM [facility] HGA1C BLOOD Specimen Type: BLOOD No comment entered. Ordering Provider: MARY SAHU Report Released Date/Time: November 20, 2024 12:08 PM Reporting Lab: [place] [facility] [address] [place] [address] Performing Lab: [place] [facility] [address] [place] [address] HGA1C 5.6 4.0-6.0 November 20, 2024 12:08 PM [facility] VITAMIN D, 25-HYDROXY SERUM Specimen Type: SE RUM No comment entered. Ordering Provider: MARY SAHU Report Released Date/Time: November 20, 2024 12:08 PM Reporting Lab: [place] [facility] [address] [place] [address] Performing Lab: [place] [facility] [address] [place] [address] VITAMIN D, 25-HYDROXY 45.1 ng/mL 30-96 November 20, 2024 12:08 PM [facility] CHOLESTEROL PANEL (PB) PLASMA Specimen Type: P LASMA No comment entered. Ordering Provider: MARY SAHU Report Released Date/Time: November 20, 2024 12:08 PM Reporting Lab: [place] [facility] [address] [place] [address] Performing Lab: [place] [facility] [address] [place] [address] CHOLESTEROL 166 mg/dL 0-200 TRIGLYCERIDE 93 mg/dL 0-150 CALCULATED LDL 72.4 mg/dL HDL(New) 75.0 mg/dL H >40 HDL % OF TOTAL CHOLESTEROL (PB) 45.2 >25 November 20, 2024 12:08 PM [facility] COMPREHENSIVE METABOLIC PANEL PLASMA Specimen Type: PLASMA No comment entered. Ordering Provider: MARY SAHU Report Released Date/Time: November 20, 2024 12:08 PM Reporting Lab: [facility] [facility] [address] [place] [address] Performing Lab: [facility] [address] [place] [address] CREATININE 0.92 mg/dL 0.7-1.3 UREA NITROGEN 16 mg/dL 9-25 GLUCOSE 95 mg/dL 72-99 SODIUM 144 meq/L 136-145 POTASSIUM 5.1 meq/L H 3.5-5 CHLORIDE 109 meq/L H 98-107 CARBON DIOXIDE 27 meq/L 22-31 CALCIUM 9.2 mg/dL 8.4-10.4 PROTEIN 6.1 g/dL 6-8.6 ALBUMIN 3.8 g/dL 3.4-5 TOTAL BILIRUBIN 0.4 mg/dL 0.2-1.2 ALKALINE PHOSPHATASE 71 U/L 40-150 AST/SGOT 18 U/L 5-34 ALT/SGPT 17 U/L 8-40 EGFR (CKD-EPI 2020) 88 November 20, 2024 12:08 PM [facility] BLOOD Specimen Type: BLOOD No comment entered. Ordering Provider: MARY SAHU Report Released Date/Time: November 20, 2024 12:08 PM Reporting Lab: [facility] [address] [place] [address] Performing Lab: [facility] [facility] [address] [place] [address] WBC 5.2 10*3/uL 3.6-11.2 RBC 4.48 10*6/uL 4.10-5.70 HGB 13.3 g/dL 13.1-16.8 HCT 43.1 38.2-48.4 MCV 96.2 fL 80.0-100.0 MCH 29.7 pg 27.0-34.0 MCHC 30.9 g/dL L 33.0-36.0 PLT 157 10*3/uL 150-400 MPV 10.9 fL 7.5-11.2 RDW 15.6 H 11.8-15.1 LYMPHOCYTES, AUTO % 14.1 MONOCYTES, AUTO % 3.5 NEUTROPHILS, AUTO % 80.4 EOSINOPHILS, AUTO % 0.6 BASOPHILS, AUTO % 0.8 LYMPHOCYTES, ABSOLUTE 0.73 10*3/uL L 0.77- 4.50 MONOCYTES, ABSOLUTE 0.18 10*3/uL L 0.19-0. 8 NEUTROPHILS, ABSOLUTE 4.18 10*3/uL 2.10- 8.00 EOSINOPHILS, ABSOLUTE 0.03 10*3/uL 0.00- 0.60 BASOPHILS, ABSOLUTE 0.04 10*3/uL 0.00-0. 20 IMMATURE GRANS, AUTO % 0.6 IMMATURE GRANS, AUTO ABS 0.03 10*3/uL 0. 00-0.05 Vital Signs: All taken on the encounter date This section contains inpatient and outpatient Vital Signs collected on the date of the Encounter. Date/Time Temperature Pulse Blood Pressure Respiratory Rate SP02 Pain Height Weight Body Mass Index Source Dec 03, 2024 11:32 AM 97.4 50 122/68 17 91 9 66.0 176.9 29 [facility] Social History: Smoking Status (Most current) and Tobacco Use (All prior to encounter date) This section includes the most current, and the historical, smoking and tobacco- related health factors from the AL facility where the Encounter took place. Current Smoking Status This section includes the most current smoking, or tobacco-related health factor, from the AL facility where the Encounter took place. Date/Time Current Smoking Status Comment Facil ity Feb 16, 2024 11:00 AM VA-TOBACCO QUIT 15 YRS OR MORE [facility] Tobacco Use History This section includes a history of the smoking, or tobacco-related health factors, that were collected on or before the date of the Encounter. The data comes from the [place] facility where the Encounter took place. Date/Time Smoking Status/Tobacco Use Comment F acility Feb 16, 2024 11:00 AM VA-TOBACCO QUIT 15 YRS OR MORE [facility] Feb 18, 2023 10:00 AM VA-TOBACCO FORMER USER [facility] Feb 18, 2023 10:00 AM VA-TOBACCO QUIT 15 YRS OR MORE [facility] Apr 30, 2015 09:57 AM QUIT TOBACCO >7 YEARS AGO [facility] Aug 22, 2013 12:59 PM QUIT TOBACCO >12 MO & <7 YRS AGO [place] [facility] Advance Directives: All historical and current Section Date Range: From patient's date of to the date document was created. This section includes ALL of a patient's completed or amended VA Advance and Rescinded Directives. The entries below indicate that a directive exists for the patient, but an actual copy is not included with this document. The data comes from all [place] facilities. Date Advance Directives Provider Source Oct 19, 2011 ADVANCE DIRECTIVE DISCUSSION [facility] Jul 27, 2006 ADVANCE DIRECTIVE SWAPNA [facility] Radiology Reports: +/- 30 days of the encounter Radiology Reports For cases when an order for radiology services may have been completed prior to the date of the Encounter, the report list includes the Radiology Reports that were completed up to 30 days before dateof the Encounter. For cases when an order for radiology services may have been completed after the date of the Encounter, the report list also includes the Radiology Reports that were completed up to30 days after date of the Encounter. The data comes from all [place] treatment facilities. Date/Time Radiology Report Provider Source November 20, 2024 12:08 PM CHEST X-RAY, 2 VIE WS: GRISELERICA VANDANA [id number] -1950 M Exm Date: NOVEMBER 20, 2024@12:08 Req Phys: MARY SAHU Loc: [facility] PA[facility] ECHO PCP (Req'g Lo Img Loc: PB-XRAY [place] Service: [place] [address] (Case [id number] COMPLETE) CHEST X-RAY, 2 VIEWS (RAD Detailed) CPT:72979 Reason for Study: dyspnea Clinical History: Report Status: Verified Date Reported: NOVEMBER 20, 2024 Date Verified: NOVEMBER 20, 2024 [employer] Gre[employer] E-Sig: Report: Chest 2 views. Lungs hyperinflated with emphysematous changes. There are no infiltrates or effusions. Right basilar pulmonary nodule similar previous study dated 03/31/2023. Exact etiology uncertain. Heart normal size. Postop changes. Degenerative changes thoracic spine. Postop changes left humerus. Findings similar previous study dated 03/31/2023. Impression: 1. COPD 2. Right basilar pulmonary nodule similar previous study dated 03/31/2023. Exact etiology uncertain. 3. CT scan performed at [facility] dated 08/01/2023 demonstrated the pulmonary nodule and the report recommended the 6-12 follow-up CT scan the chest. It is uncertain whether the follow-up CT was performed or not. If not performed recommend CT scan the chest to compare to prior CT scan Primary Interpreting Staff: KAREN MCCORMICK RADIOLOGIST (W[employer], no e-sig) /KAREN Qureshi [facility] November 20, 2024 11:18 AM FOOT,LEFT 3 VIEWS OR MORE: ERICA RECINOS [id number] -[id number] M Exm Date: NOVEMBER 20, 2024@11:18 Req Phys: MARY SAHU Loc: PB-[facility] PACT ECHO LINDA (Req'g Lo Img Loc: PB-XRAY [place] Service: [place] [address] (Case [id number] COMPLETE) FOOT,LEFT 3 VIEWS OR MORE (RAD Detailed) CPT:85946 Proc Modifiers : LEFT Reason for Study: pain to toes/foot Clinical History: Report Status: Verified Date Reported: NOVEMBER 20, 2024 Date Verified: NOVEMBER 20, 2024 [employer] E-Sig: Report: Left foot 3 views. No evidence of acute fracture or dislocation. There are degenerative changes. Spur posterior and plantar aspect calcaneus. Mild soft tissue swelling. Probable irregular portion of the toenail noted protruding from the first digit. Impression: 1. No acute bony change 2. Mild degenerative arthritis 3. Spur posterior and plantar aspect calcaneus 4. Mild soft tissue swelling Primary Interpreting Staff: KAREN MCCORMICK RADIOLOGIST (Wash [employer], no e-sig) /KAREN Qureshi [facility] Encounter Notes: All associated encounter notes This section contains the clinical notes associated to the Encounter. Date/Time Encounter Note(s) Provider Source Dec 03, 2024 11:49 AM ACCOUNTING OF DISC LOSURES NOTE: LOCAL TITLE: STATE PRESCRIPTION DRUG MONITORING PROGRAM STANDARD TITLE: ACCOUNTING OF DISCLOSURES NOTE DATE OF NOTE: DEC 03, 2024@11:49:46 ENTRY DATE: DEC 03, 2024@11:49:46 AUTHOR: MARY SAHU EXP COSIGNER: URGENCY: STATUS: COMPLETED This PDMP query was submitted by Mary Sahu MD. The clinical justification for this PDMP query is to review controlled substances prescribed outside of the [facility], and any additional information that may become available, as an important component of standard clinical care, and in accordance with [facility] policy. Patient information was shared with the PDMP [place]. No prescription(s) for controlled substances outside the [facility] were found in the last 90 days. /robby/ Mary Sahu MD [place] [facility] Primary Care Signed: 12/03/2024 11:50 MARY SAHU [facility] Dec 03, 2024 11:40 AM PRIMARY CARE PROGR ESS NOTE: LOCAL TITLE: PRIMARY CARE CLINIC PROGRESS NOTE PB STANDARD TITLE: PRIMARY CARE PROGRESS NOTE DATE OF NOTE: DEC 03, 2024@11:40 ENTRY DATE: DEC 03, 2024@11:41:06 AUTHOR: MARY SAHU EXP COSIGNER: URGENCY: STATUS: COMPLETED PRIMARY CARE CLINIC PROGRESS NOTE PB Has ADDENDA CC: ER follow-up HPI: He had recent lab performed that showed an elevated D-dimer and was sent to the emergency room for further evaluation because he also was complaining of dyspnea. He ER evaluation showed no DVT however he did have PVCs and was set up for cardiology stress test which is scheduled for tomorrow. At this point he does not have a ride to get to the stress test. He needs a stress test to clear him for right knee replacement that is scheduled January 03. He has seen the surgical scrub technologist who is going to see back in December after the knee replacement for further treatment regarding his inflammatory arthritis. He continues to have significant pain in that left knee. [facility] Orthopedist-Dr. Andrews Rheumatology Dr. 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 OVERSEAS STATIONS/DEPLOYMENTS: [employer] [facility] MAJOR ACCIDENTS OR INJURIES WHILE ON ACTIVE DUTY: no MST: no SURGICAL HX: Lumbar x5 Cervical x2 Ventral hernia CABG quad cholecystectomy Left leg stents x2 Bilateral cataracts Left shoulder (s/p CVA) PROBLEM LIST: 1) Dysphagia (SNOMED CT 32759178) 2) Iron deficiency anemia (SNOMED CT 33739130) 3) Chronic back pain (SNOMED CT 699539665) 4) Neck injury (SNOMED CT 49788848) 5) CAD - Coronary Artery Disease (SCT 86959987) 6) HTN - Hypertension (SCT 47466988) 7) Hyperlipidemia (SCT 18228445) 8) Hernia 9) Claudication 10) Peripheral arterial occlusive disease 11) Solitary nodule of lung 12) Constipation 13) Osteoarthritis of right knee joint Active Outpatient Medications (including Supplies): Active Outpatient Medications Status 1) ATORVASTATIN CALCIUM 80MG TAB TAKE ONE TABLET BY MOUTH EVERY ACTIVE EVENING Indication: FOR HIGH CHOLESTEROL 2) BACLOFEN 10MG TAB TAKE ONE TABLET BY MOUTH THREE TIMES A DAY ACTIVE (S) NEEDED Indication: FOR MUSCLE SPASM 3) CARVEDILOL 6.25MG TAB TAKE ONE-HALF TABLET BY MOUTH TWICE A ACTIVE DAY TAKE WITH FOOD. Indication: FOR HIGH BLOOD PRESSURE 4) CHOLECALCIF 25MCG (D3-1,000UNIT) TAB TAKE ONE TABLET BY ACTIVE MOUTH ONCE A DAY Indication: FOR VITAMIN D DEFICIENCY 5) CILOSTAZOL 100MG TAB TAKE ONE-HALF TABLET BY MOUTH TWICE A ACTIVE DAY TAKE 30 MINUTES BEFORE OR AT LEAST 2 HOURS AFTER FOOD. DO NOT TAKE WITH GRAPEFRUIT JUICE. Indication: FOR INTERMITTENT CLAUDICATION 6) CLOPIDOGREL BISULFATE 75MG TAB TAKE ONE TABLET BY MOUTH ONCE ACTIVE A DAY Indication: FOR ACUTE CORONARY SYNDROME 7) DICLOFENAC NA 1% TOP GEL APPLY 4 GM TO AFFECTED AREA(S) FOUR ACTIVE TIMES A DAY APPLY TO SINGLE KNEE, ANKLE, FOOT. DO NOT EXCEED MORE THAN 16 GRAMS DAILY TO ANY LOWER EXTREMITY JOINT. NOT MORE THAN 8 GRAMS DAILY TO ANY UPPER EXTREMITY JOINT. MAX 32GM/DAY OVER ALL JOINTS. (MEASURE DOSE WITH RULER ATTACHED INSIDE BOX) 8) FERROUS SULFATE 325MG TAB TAKE ONE TABLET BY MOUTH ONCE A ACTIVE DAY FOR IRON SUPPLEMENTATION. 9) LEFLUNOMIDE 20MG TAB TAKE ONE TABLET BY MOUTH ONCE A DAY ACTIVE TAKE AT SAME TIME EACH DAY. 10) LISINOPRIL 20MG TAB TAKE ONE AND ONE-HALF TABLETS BY MOUTH ACTIVE ONCE A DAY Indication: FOR HIGH BLOOD PRESSURE 11) PANTOPRAZOLE NA 40MG EC TAB TAKE ONE TABLET BY MOUTH EVERY ACTIVE (S) MORNING BEFORE A MEAL TAKE 30 MINUTES BEFORE MEAL(S) Indication: FOR GASTROESOPHAGEAL REFLUX DISEASE 12) PREDNISONE 10MG TAB TAKE ONE-HALF TABLET BY MOUTH ONCE A DAY ACTIVE TAKE WITH FOOD OR MILK. Indication: FOR SWELLING AND INFLAMMATIONS 13) PREGABALIN 150MG ORAL CAP TAKE ONE CAPSULE BY MOUTH TWICE A ACTIVE (S) DAY *MAY CAUSE DROWSINESS* Indication: FOR NERVE PAIN OBJECTIVE: Vital Signs Temperature: 97.4 F [36.3 C] (12/03/2024 11:32) Respiratory Rate: 17 (12/03/2024 11:32) Pulse Rate: 50 (12/03/2024 11:32) Blood Pressure: 122/68 (12/03/2024 11:32) HT: 66.0 in [167.6 cm] (12/03/2024 11:32) WT: 176.9 lb [80.24 kg] (12/03/2024 11:32) BMI: 28.6 91% (12/03/2024 11:32) Physical Exam General: NAD noted, A&Ox3, pleasant, appears stated age HEENT: NCAT, TM's clear, nares and oropharynx clear Neck: Supple with normal active ROM, without any lymphadenopathy Heart: RRR, no murmur, clicks, or rub Resp: Lungs CTA bilaterally, respirations even and unlabored Abdomen: Soft, non-distended, non-tender Ext: No clubbing, cyanosis, edema or obvious deformity Neuro: Grossly intact Psych: Affect normal, answers questions appropriately throughout visit Assessment/Plan: Dyspnea possible angina equivalent needs set up for cardiac clearance for surgery-consult placed. Stress test scheduled tomorrow CAD s/p CABG- no angina on Coreg, atorvastatin; needs cardiac clearance for surgery Chronic pain/polyarthritis-followed by rheumatology now on lefunomide Severe arthritis right knee-reports scheduled for knee replacement on December 11 however patient needs cardiac clearance prior to this; I did write him a prescription for Percocet 7.5/325 #30 to take 1 every 6 hours as needed for pain; UDS todday,. PAD with Claudication s/p stents in left leg- on Plavix Recent fall with left rib pain- xrays today, no acute changes, radiology read pending Solitary nodule of lung- stable CT on 02/29/2024 repeat 1 year. Constipation-stable currently not on oxycodone Dysphagia- stable Anemia- stable on iron; B12 stopped last month Follow-up: As scheduled in February and/or as needed. Discussed with patient that in the event of community imaging / testing being ordered in the future, once the imaging / testing has been completed, please notify PACT of completion at outside facility if not called with results within 1 week by a [facility] PACT member; this is due to intermittent lapses in notification of imaging completion within CPR[facility]. All questions answered; agrees to plan of care. Follow up as listed above, annually, and as needed. Keep all appointments. Medications Reconciled. See AVS given to . Time spent 30 minutes. /robby/ Mary Sahu MD [facility] Primary Care Signed: 12/03/2024 11:55 02/06/2025 ADDENDUM STATUS: COMPLETED Patient had an abnormal myocardial perfusion scan in December performed by Dr. Rodríguez I need to clarify is he actually being followed by cardiology or do we need to place an actual referral to cardiology? /robby/ Mary Sahu MD [facility] Primary Care Signed: 02/06/2025 14:01 Receipt Acknowledged By: * AWAITING SIGNATURE * [facility] Dec 03, 2024 11:24 AM PRIMARY CARE NURSI CRISTINO NOTE: LOCAL TITLE: PRIMARY CARE NURSING PROGRESS NOTE (TEXT) NURSING P STANDARD TITLE: PRIMARY CARE NURSING NOTE DATE OF NOTE: DEC 03, 2024@11:24 ENTRY DATE: DEC 03, 2024@11:24:34 AUTHOR: MARLINE GRAY COSIGNER: URGENCY: STATUS: COMPLETED Established Patient ERICA RECINOS IS A 74 YEAR OLD MALE BEING SEEN IN CLINIC DEC 03, 2024. = = REASON FOR VISIT: here for ER follow up from elevated d dimer Are you receiving care [facility] than [facility]? No HEALTH AND SURGICAL HISTORY: Does patient report using home oxygen? No CURRENT ACTIVE MEDICATIONS FOR REVIEW: If the list for review does not include a component, then it was not applicable to this patient. Allergies/ADRs (Tool #5) FACILITY ALLERGY/ADR -------- [facility] NO KNOWN ALLERGIES [facility] NO KNOWN ALLERGIES [facility] No Known Allergies Med. Reconciliation (Tool #1) INCLUDED IN THIS LIST: Alphabetical list of active outpatient prescriptions dispensed from this AL (local) and dispensed from another AL or DoD facility (remote) as well as inpatient orders (local pending and active), local clinic medications, locally documented non-VA medications, and local prescriptions that have or been discontinued in the past 90 days. Non-VA Meds Last Documented On: Mar 25, 2023 NOTE The display of VA prescriptions dispensed from another VA or DoD facility (remote) is limited to active outpatient prescription entries matched to National Drug File at the originating site and may not include some items such as investigational drugs, compounds, etc. NOT INCLUDED IN THIS LIST: Medications self-entered by the patient into personal health records (i.e. [employer]) are NOT included in this list. Non-VA medications documented outside this AL, remote inpatient orders (regardless of status) and remote clinic medications are NOT included in this list. The patient and provider must always discuss medications the patient is taking, regardless of where the medication was dispensed or obtained. OUTPT ATORVASTATIN CALCIUM 80MG TAB (Status = Active) TAKE ONE TABLET BY MOUTH EVERY EVENING FOR HIGH CHOLESTEROL Rx# [id number] Last Released: 11/12/24 Qty/Days Supply: 90 Rx Expiration Date: 02/28/25 Refills Remainin Indication: FOR HIGH CHOLESTEROL OUTPT BACLOFEN 10MG TAB (Status = Active/Suspended) TAKE ONE TABLET BY MOUTH THREE TIMES A DAY NEEDED FOR MUSCLE SPASM Rx# [id number] Last Released: 11/23/24 Qty/Days Supply: 270/ Rx Expiration Date: 03/06/25 Refills Remainin Indication: FOR MUSCLE SPASM OUTPT CARVEDILOL 6.25MG TAB (Status = Active) TAKE ONE-HALF TABLET BY MOUTH TWICE A DAY FOR HIGH BLOOD PRESSURE TAKE WITH FOOD. Rx# [id number] Last Released: 11/12/24 Qty/Days Supply: Rx Expiration Date: 04/25/25 Refills Remainin Indication: FOR HIGH BLOOD PRESSURE OUTPT CHOLECALCIF 25MCG (D3-1,000UNIT) TAB (Status = Active) TAKE ONE TABLET BY MOUTH ONCE A DAY FOR VITAMIN D DEFICIENCY Rx# [id number] Last Released: 09/12/24 Qty/Days Supply: 100/ Rx Expiration Date: 03/13/25 Refills Remainin Indication: FOR VITAMIN D DEFICIENCY OUTPT CILOSTAZOL 100MG TAB (Status = Active) TAKE ONE-HALF TABLET BY MOUTH TWICE A DAY FOR INTERMITTENT CLAUDICATION TAKE 30 MINUTES BEFORE OR AT LEAST 2 HOURS AFTER FOOD. DO NOT TAKE WITH GRAPEFRUIT JUICE. Rx# [id number] Last Released: 10/19/24 Qty/Days Supply: Rx Expiration Date: 04/25/25 Refills Remainin Indication: FOR INTERMITTENT CLAUDICATION OUTPT CLOPIDOGREL BISULFATE 75MG TAB (Status = Active) TAKE ONE TABLET BY MOUTH ONCE A DAY FOR ACUTE CORONARY SYNDROME Rx# [id number] Last Released: 08/20/24 Qty/Days Supply: 90 Rx Expiration Date: 03/13/25 Refills Remainin Indication: FOR ACUTE CORONARY SYNDROME OUTPT DICLOFENAC NA 1% TOP GEL (Status = Active) APPLY 4 GM TO AFFECTED AREA(S) FOUR TIMES A DAY APPLY TO SINGLE KNEE, ANKLE, FOOT. DO NOT EXCEED MORE THAN 16 GRAMS DAILY TO ANY LOWER EXTREMITY JOINT. NOT MORE THAN 8 GRAMS DAILY TO ANY UPPER EXTREMITY JOINT. MAX 32GM/DAY OVER ALL JOINTS. (MEASURE DOSE WITH RULER ATTACHED INSIDE BOX) Rx# [id number] Last Released: 04/26/24 Qty/Days Supply: 100/30 Rx Expiration Date: 04/24/25 Refills Remainin OUTPT FERROUS SULFATE 325MG TAB (Status = Active) TAKE ONE TABLET BY MOUTH ONCE A DAY FOR IRON SUPPLEMENTATION. Rx# [id number] Last Released: 10/22/24 Qty/Days Supply: 100 Rx Expiration Date: 08/21/25 Refills Remainin OUTPT LEFLUNOMIDE 20MG TAB (Status = Discontinued) TAKE ONE TABLET BY MOUTH ONCE A DAY TAKE AT SAME TIME EACH DAY. Rx# [id number] Last Released: 11/12/24 Qty/Days Supply: Rx Expiration Date: 10/10/25 Refills Remainin OUTPT LEFLUNOMIDE 20MG TAB (Status = Active) TAKE ONE TABLET BY MOUTH ONCE A DAY TAKE AT SAME TIME EACH DAY. Rx# [id number] Last Released: Qty/Days Supply: Rx Expiration Date: 11/29/25 Refills Remainin OUTPT LISINOPRIL 20MG TAB (Status = Active) TAKE ONE AND ONE-HALF TABLETS BY MOUTH ONCE A DAY FOR HIGH BLOOD PRESSURE Rx# [id number] Last Released: 11/12/24 Qty/Days Supply: 135/90 Rx Expiration Date: 04/25/25 Refills Remainin Indication: FOR HIGH BLOOD PRESSURE OUTPT NALOXONE HCL 4MG/SPRAY SOLN NASAL SPRAY (Status = ) USE 1 SPRAY (4MG) INTO ONE NOSTRIL ONLY ONE-TIME FOR OPIOID OVERDOSE DO NOT PRIME NASAL SPRAY. SPRAY ONE DOSE IN ONE NOSTRIL, GIVE ADDITIONAL DOSE IF PATIENT DOES NOT START BREATHING WITHIN 2-3 MINUTES OR STOPS BREATHING AGAIN. CALL 911. IF USED, NOTIFY PROVIDER. Rx# [id number] Last Released: 07/31/24 Qty/Days Supply: Rx Expiration Date: 10/23/24 Refills Remainin Indication: FOR OPIOID OVERDOSE OUTPT PANTOPRAZOLE NA 40MG EC TAB (Status = Discontinued) TAKE ONE TABLET BY MOUTH EVERY MORNING BEFORE A MEAL FOR GASTROESOPHAGEAL REFLUX DISEASE TAKE 30 MINUTES BEFORE MEAL(S) Rx# [id number] Last Released: 10/09/24 Qt/ Supply: Rx Expiration Date: 01/31/25 Refills Remainin Indication: FOR GASTROESOPHAGEAL REFLUX DISEASE OUTPT PANTOPRAZOLE NA 40MG EC TAB (Status = Active/Suspended) TAKE ONE TABLET BY MOUTH EVERY MORNING BEFORE A MEAL FOR GASTROESOPHAGEAL REFLUX DISEASE TAKE 30 MINUTES BEFORE MEAL(S) Rx# [id number] Last Released: Supply: Rx Expiration Date: 10/16/25 Refills Remainin Indication: FOR GASTROESOPHAGEAL REFLUX DISEASE OUTPT PREDNISONE 10MG TAB (Status = Discontinued) TAKE TWO TABLETS BY MOUTH ONCE A DAY FOR 5 DAYS, THEN TAKE ONE TABLET EVERY MORNING FOR 5 DAYS, THEN TAKE ONE-HALF TABLET ONCE A DAY FOR SWELLING AND INFLAMMATIONS TAKE WITH FOOD OR MILK. Rx# [id number] Last Released: 09/21/24 Qty/Days Supply: Rx Expiration Date: 09/20/25 Refills Remainin Indication: FOR SWELLING AND INFLAMMATIONS OUTPT PREDNISONE 10MG TAB (Status = Active) TAKE ONE-HALF TABLET BY MOUTH ONCE A DAY FOR SWELLING AND INFLAMMATIONS TAKE WITH FOOD OR MILK. Rx# [id number] Last Released: 11/28/24 Qty/Days Supply: Rx Expiration Date: 09/20/25 Refills Remainin Indication: FOR SWELLING AND INFLAMMATIONS OUTPT PREGABALIN 150MG ORAL CAP (Status = Active/Suspended) TAKE ONE CAPSULE BY MOUTH TWICE A DAY FOR NERVE PAIN *MAY CAUSE DROWSINESS* Rx# [id number] Last Released: 11/22/24 Qty/Days Supply: 60 Rx Expiration Date: 01/02/25 Refills Remainin Indication: FOR NERVE PAIN SUPPLIES PHARMACY TERMS AND POSSIBLE PATIENT ACTIONS INPT = AL inpatient order IV = AL intravenous medication OUTPT = AL outpatient prescription PHARMACY POSSIBLE PATIENT TERMS EXPLANATION ACTIONS -------- ---- ACTIVE A prescription that can be If you have refills, filled at the local AL pharmacy. you may request a refill of this prescription from your AL pharmacy. CLINIC A medication you received during If you have questions a visit to a AL clinic or about this medication emergency department. contact your AL healthcare team. DISCONTINUED A prescription your provider has Contact your [facility] stopped. It is no longer healthcare team if you available to be sent to you or need more of this picked up at the AL pharmacy medication. window. A prescription which is too old Contact your VA to fill. This does not refer to healthcare team if you the expiration date of the need more of this medication in the container. medication. NON-VA A medication that came from If this medication someplace other than a VA information is pharmacy. This may be a incorrect or out of prescription from either the VA date, please tell your or non VA providers that was VA healthcare team. filled outside the VA. Or, it may be an [id number] (OTC), herbal, dietary supplements or sample medication. ON HOLD An active prescription that will Contact your VA not be filled until pharmacy pharmacy when you need resolves the issue. more of this medication. PARKED An active prescription that will Contact your VA not be filled until the patient pharmacy when you need requests it. this medication. PENDING This prescription order has been If you have been sent to the pharmacy for review instructed to start and is not ready yet. this medication now, contact your VA pharmacy. SUSPENDED An active prescription that is Contact your VA not scheduled to be filled yet. pharmacy if you need You should receive it before this medication now. you run out. Medication list reviewed with Patient Patient/Caregiver reports taking medications as ordered. IS PATIENT TAKING ANY OVER THE COUNTER MEDICATIONS, SUCH VITAMINS OR HERBAL SUPPLEMENTS, INCLUDING ANY MEDICATIONS PRESCRIBED BY ANOTHER PHYSICIAN? No Does patient have any new allergies to report since last visit? NO VITALS: TEMPERATURE: 98.4 F [36.9 C] (10/26/2024 11:01) BP: 105/64 (11/20/2024 12:00) RESP: 22 (11/20/2024 12:00) PULSE: 64 (11/20/2024 12:00) HT: 66.0 in [167.6 cm] (02/16/2024 11:56) WT: 177.5 lb [80.51 kg] (11/20/2024 12:00) BMI: 28.7 PAIN ASSESSMENT: (Most Recent Pain Score in Vitals Package: 7 (11/20/2024 12:00) ) The patient indicated that they and their close contacts have not traveled outside of the [place] in the past 21 days. The patient reports the following symptoms: No symptoms present The patient is not immunocompromised. The patient does not report having a history of Multi Drug Resistant Organism (MDRO) within the last five years. The patient does not report having been exposed to measles, chickenpox, or zoster in last 30 days. STRESS: Thank you for your service. Now let us serve you. At the [facility], we strive to provide you with exceptional health care that improves your health and well-being. Are you feeling sad, empty, or depressed? No Do you need to talk about things in your life that worry you or cause you stress? No Do you need to talk about personal problems, family problems, alcohol use, drug use, or mental or emotional illness? No SUICIDE SCREENING: The patient was asked, Over the past two weeks, how often have you been bothered by thoughts that you would be better off or of hurting yourself in some way? Not At All SPIRITUAL ASSESSMENT: Are there baptist practices or spiritual concerns you want the general dentist/owner, your physician, and other health care team members to immediately know about? No Patient advised to call the clinic for any concerns, questions, or symptoms. Patient and/or caregiver verbalized understanding of plan of care. /robby/ MARYA HENDRICKS CBVIVIAN Signed: 12/03/2024 11:35 MARLINE GRAY DC ANNA
--- OUTSIDE RECORDS SUMMARY | 2025-01-29 19:00 | XMS_ITS | Encounter Summary ---
Author Name [facility] [place] Address [address] [place] [address] Care Team Providers Care Commercial Hvac Technician Name Role Phone JUAN JOSE HANLEY Primary Care Provider Unavailabl e SAÚL [...] Policy [place] MEDICARE (WNR) MEDICARE (M) PART B Apr 27, 1986 PART B [id number] [phone] ARVIN RECINOS ERT PATIENT MEDICARE (WNR) MEDICARE (M) PART A Apr 27, 1986 PART A [id number] ARVIN RECINOS ERT PATIENT MEDICARE (WNR) MEDICARE (M) PART A Apr 27, 1986 PART A [id number] [phone] ARVIN RECINOS ERT PATIENT MEDICARE (WNR) MEDICARE (M) PART B Apr 27, 1986 PART B [id number] ARVIN RECINOS ERT PATIENT MEDICARE (WNR) MEDICARE (M) PART A Apr 27, 1986 PART A [id number] ARVIN RECINOS ERT PATIENT MEDICARE (WNR) MEDICARE (M) PART A Apr 27, 1986 PART A [id number] ARVIN RECINOS ERT PATIENT MEDICARE (WNR) MEDICARE (M) PART B Apr 27, 1986 PART B [id number] ARVIN RECINOS ERT PATIENT MEDICARE (WNR) MEDICARE (M) PART B Apr 27, 1986 PART B [id number] ARVIN RECINOS ERT PATIENT MEDICARE (WNR) MEDICARE (M) PART A Apr 27, 1986 PART A [id number] [phone] ARVIN RECINOS ERT PATIENT MEDICARE (WNR) MEDICARE (M) PART B Apr 27, 1986 PART B [id number] [phone] ARVIN RECINOS ERT PATIENT MEDICARE (WNR) MEDICARE (M) PART A Apr 27, 1986 PART A [id number] [phone] ARVIN RECINOS ERT PATIENT MEDICARE (WNR) MEDICARE (M) PART B Apr 27, 1986 PART B [id number] [phone] ARVIN RECINOS ERT PATIENT Selected Encounter This section includes the information on record at [place] for the Encounter. Date/Time Encounter Type Encounter Description Reason Pro vider Source Jan 30, 2025 12:00 AM Outpatient Encounter EVENT (HISTORICAL) IHE Encounter Template Text not used by [place] Plan of Treatment: Future Appointments (+ 6 months) and Future Tests (+/- 45 days) The Plan of Treatment section includes future care activities for the patient from all [place] treatmentfacilities. This section includes future appointments and future orders which are active, pending or scheduled. Future Appointments This section includes appointments that were scheduled to occur 6 months from the date of the Encounter, up to a maximum of 20 appointments. The data comes from all [place] treatment facilities. Appointment Date/Time Appointment Type Appointme nt Facility Name Feb 11, 2025 02:30 PM AMBULATORY - MEDICINE SARAH [facility] Feb 26, 2025 11:00 AM AMBULATORY - MEDICINE [facility] Active, Pending, and Scheduled Orders This section includes a listing of several types of active, pending, and scheduled orders, including clinic medications orders, diagnostic test orders, procedure orders and consult orders; where the start date of the order is 45 days before the date of the Encounter or 45 days after the date of theEncounter. The data comes from all [place] treatment facilities. Test Date/Time Test Type Test Details Facility Name Dec 25, 2024 12:33 PM Consult Order COMMUNITY CARE-IMAGING CT-AUTO [id number] Cons Eye Clinic Manager's Choice [facility] Jan 29, 2025 09:26 AM Consult Order COMMUNITY CARE-UROLOGY PB [id number] Cons Eye Clinic Manager's Choice [facility] Jan 30, 2025 12:00 AM Laboratory - Microbiology Order C&S STOOL STOOL FECES [facility] Jan 30, 2025 12:00 AM Laboratory - Chemistry Order C DIFF EPI PCR PNL STOOL [facility] Jan 30, 2025 12:00 AM Laboratory - Chemistry Order OVA & PARASITE, STOOL (PB) STOOL FECES [facility] Mar 14, 2025 12:00 AM Laboratory - Chemistry Order CBC BLOOD [facility] Mar 14, 2025 12:00 AM Laboratory - Chemistry Order COMPREHENSIVE METABOLIC PANEL GREEN LI/HEP BLD/PLAS PLASMA [facility] Mar 14, 2025 12:00 AM Laboratory - Chemistry Order HGA1C BLOOD [facility] Mar 14, 2025 12:00 AM Laboratory - Chemistry Order CHOLESTEROL PANEL (PB) GREEN LI/HEP BLD/PLAS PLASMA [facility] Mar 14, 2025 12:00 AM Laboratory - Chemistry Order TSH (MA-PB) GOLD/RED SST SERUM [facility] Advance Directives: All historical and current Section Date Range: From patient's date of to the date document was created. This section includes ALL of a patient's completed or amended [place] Advance and Rescinded Directives. The entries below indicate that a directive exists for the patient, but an actual copy is not included with this document. The data comes from all [facility]. Date Advance Directives Provider Source Oct 19, 2011 ADVANCE DIRECTIVE DISCUSSION OG BOYER [facility] Jul 27, 2006 ADVANCE DIRECTIVE SWAPNA CRABTREE [facility]
--- OUTSIDE RECORDS SUMMARY | 2025-01-30 04:44 | XMS_ITS | Encounter Summary ---
Author Name [facility] [place] Address [address] [place] [address] Care Team Providers Care Postage Machine Operator Name Role Phone JUAN JOSE HANLEY Primary [...] PART A Apr 27, 1986 PART A [id number] [phone] ARVIN RECINOS ERT PATIENT MEDICARE (WNR) MEDICARE (M) PART B Apr 27, 1986 PART B [id number] [phone] ARVIN RECINOS ERT PATIENT MEDICARE (WNR) MEDICARE (M) PART A Apr 27, 1986 PART A [id number] [phone] ARVIN RECINOS ERT PATIENT MEDICARE (WNR) MEDICARE (M) PART B Apr 27, 1986 PART B [id number] [phone] ARVIN RECINOS ERT PATIENT MEDICARE (WNR) MEDICARE (M) PART A Apr 27, 1986 PART A [id number] ARVIN RECINOS ERT PATIENT MEDICARE (WNR) MEDICARE (M) PART B Apr 27, 1986 PART B [id number] [id number] [phone] ARVIN RECINOS ERT PATIENT MEDICARE (WNR) MEDICARE (M) PART A Apr 27, 1986 PART A [id number] [phone] ARVIN RECINOS ERT PATIENT MEDICARE (WNR) MEDICARE (M) PART B Apr 27, 1986 PART B [id number] [phone] ARVIN RECINOS ERT PATIENT MEDICARE (WNR) MEDICARE (M) PART A Apr 27, 1986 PART A [id number] [phone] ARVIN RECINOS ERT PATIENT MEDICARE (WNR) MEDICARE (M) PART B Apr 27, 1986 PART B [id number] [phone] ARVIN RECINOS ERT PATIENT MEDICARE (WNR) MEDICARE (M) PART A Apr 27, 1986 PART A [id number] [phone] ARVIN RECINOS ERT PATIENT MEDICARE (WNR) MEDICARE (M) PART B Apr 27, 1986 PART B [id number] [phone] ARVIN RECINOS ERT PATIENT Selected Encounter This section includes the information on record at [place] for the Encounter. Date/Time Encounter Type Encounter Description Reason Pro vider Source Jan 30, 2025 09:44 AM Outpatient Encounter ADMIN PAT ACTIVTIES (MASNONCT) IHE Encounter Template Text not used by [place] Plan of Treatment: Future Appointments (+ 6 months) and Future Tests (+/- 45 days) The Plan of Treatment section includes future care activities for the patient from all [place] treatmentfacilities. This section includes future appointments and future orders which are active, pending or scheduled. Future Appointments This section includes appointments that were scheduled to occur 6 months from the date of the Encounter, up to a maximum of 20 appointments. The data comes from all [place] treatment facilities. Appointment Date/Time Appointment Type Appointme nt Facility Name Feb 11, 2025 02:30 PM AMBULATORY - MEDICINE SARAH KAUFFMAN [facility] Feb 26, 2025 11:00 AM AMBULATORY - MEDICINE [facility] Active, Pending, and Scheduled Orders This section includes a listing of several types of active, pending, and scheduled orders, including clinic medications orders, diagnostic test orders, procedure orders and consult orders; where the start date of the order is 45 days before the date of the Encounter or 45 days after the date of theEncounter. The data comes from all [place] treatment facilities. Test Date/Time Test Type Test Details Facility Name Dec 25, 2024 12:33 PM Consult Order COMM[facility]ITY [facility]AG[facility]-AUTO [id number] Cons Predatory Animal Hunter's Choice [facility] Jan 29, 2025 09:26 AM Consult Order [facility] PB [id number] Cons Predatory Animal Hunter's Choice [facility] Jan 30, 2025 12:00 AM Laboratory - Chemistry Order OVA & PARASITE, STOOL (PB) STOOL FECES [facility] Jan 30, 2025 12:00 AM Laboratory - Chemistry Order C DIFF EPI PCR PNL STOOL [facility] Jan 30, 2025 12:00 AM Laboratory - Microbiology Order C&S STOOL STOOL [facility]EC[facility] Mar 14, 2025 12:00 AM Laboratory - Chemistry Order CBC BLOOD [facility] Mar 14, 2025 12:00 AM Laboratory - Chemistry Order COMPREHENSIVE METABOLIC PANEL GREEN LI/HEP BLD/PLAS PLASMA [facility] Mar 14, 2025 12:00 AM Laboratory - Chemistry Order HGA1C BLOOD [facility] Mar 14, 2025 12:00 AM Laboratory - Chemistry Order TSH (MA-PB) GOLD/RED SST SERUM [facility] Mar 14, 2025 12:00 AM Laboratory - Chemistry Order CHOLESTEROL PANEL (PB) GREEN LI/HEP BLD/PLAS PLASMA [facility] Advance Directives: All historical and current Section Date Range: From patient's date of to the date document was created. This section includes ALL of a patient's completed or amended [place] Advance and Rescinded Directives. The entries below indicate that a directive exists for the patient, but an actual copy is not included with this document. The data comes from all [facility]. Date Advance Directives Provider Source Oct 19, 2011 ADVANCE DIRECTIVE DISCUSSION OG BOYER [facility] Jul 27, 2006 ADVANCE DIRECTIVE SWAPNA CRABTREE [facility] Encounter Notes: All associated encounter notes This section contains the clinical notes associated to the Encounter. Date/Time Encounter Note(s) Provider Source Jan 30, 2025 09:44 AM REFERRAL NOTE: LOCAL TITLE: BENEFICIARY TRAVEL (BT) CONSULT REPLY STANDARD TITLE: REFERRAL NOTE DATE OF NOTE: JAN 30, 2025@09:44 ENTRY DATE: JAN 30, 2025@09:45:15 AUTHOR: MONET KHAN COSIGNER: URGENCY: STATUS: COMPLETED BENEFICIARY TRAVEL CONSULT REPLY VERSION 2.1: This consult completion is being based on the Beneficiary Travel (BT) Progress Note documentation on the following date: Jan. Please see this CPRS Progress Note for all request information. This Beneficiary Travel Request has been approved. Approval Appointment Type: All qualified appointments. Comment: aid & attendance Authorization Timeframe: Approved time frame this travel request: 3 Months Type of Trip Approval: Pre-Approval for Return Trip (Round Trip) /robby/ MONET KHAN Signed: 01/30/2025 09:47 MONET KHAN [facility]
--- OUTSIDE RECORDS SUMMARY | 2025-01-30 09:19 | XMS_ITS | Encounter Summary ---
Author Name [place] Address [address] [place] [address] Care Team Providers Care Science Consultant Name Role Phone JUAN JOSE HANLEY Primary [...] PART A Apr 27, 1986 PART A [id number] ARVIN NEVAREZ ERT PATIENT MEDICARE (WNR) MEDICARE (M) PART B Apr 27, 1986 PART B [id number] [phone] GRISELARVIN ERT PATIENT MEDICARE (WNR) MEDICARE (M) PART A Apr 27, 1986 PART A [id number] ARVIN NEVAREZ ERT PATIENT MEDICARE (WNR) MEDICARE (M) PART B Apr 27, 1986 PART B [id number] [phone] GRISELARVIN ERT PATIENT MEDICARE (WNR) MEDICARE (M) PART A Apr 27, 1986 PART A [id number] ARVIN NEVAREZ ERT PATIENT MEDICARE (WNR) MEDICARE (M) PART B Apr 27, 1986 PART B [id number] [phone] ARVIN NEVAREZ ERT PATIENT MEDICARE (WNR) MEDICARE (M) PART B Apr 27, 1986 PART B [id number] ARVIN NEVAREZ ERT PATIENT MEDICARE (WNR) MEDICARE (M) PART A Apr 27, 1986 PART A [id number] [phone] ARVIN NEVAREZ ERT PATIENT MEDICARE (WNR) MEDICARE (M) PART A Apr 27, 1986 PART A [id number] [phone] ARVIN NEVAREZ ERT PATIENT MEDICARE (WNR) MEDICARE (M) PART B Apr 27, 1986 PART B [id number] [phone] ARVIN NEVAREZ ERT PATIENT MEDICARE (WNR) MEDICARE (M) PART A Apr 27, 1986 PART A [id number] [phone] ARVIN NEVAREZ ERT PATIENT MEDICARE (WNR) MEDICARE (M) PART B Apr 27, 1986 PART B [id number] [phone] ARVIN NEVAREZ PATIENT Selected Encounter This section includes the information on record at [place] for the Encounter. Date/Time Encounter Type Encounter Description Reason Pro vider Source Jan 30, 2025 02:19 PM Outpatient Encounter COMMUNITY CARE CONSULT IHE Encounter Template Text not used by [place] Plan of Treatment: Future Appointments (+ 6 months) and Future Tests (+/- 45 days) The Plan of Treatment section includes future care activities for the patient from all [place] treatmentfacilities. This section includes future appointments and future orders which are active, pending or scheduled. Future Appointments This section includes appointments that were scheduled to occur 6 months from the date of the Encounter, up to a maximum of 20 appointments. The data comes from all [place] treatment facilities. Appointment Date/Time Appointment Type Appointme nt Facility Name Feb 11, 2025 02:30 PM AMBULATORY - MEDICINE [facility] MISTY KAUFFMAN [facility] Feb 26, 2025 11:00 AM AMBULATORY - MEDICINE [facility] Active, Pending, and Scheduled Orders This section includes a listing of several types of active, pending, and scheduled orders, including clinic medications orders, diagnostic test orders, procedure orders and consult orders; where the start date of the order is 45 days before the date of the Encounter or 45 days after the date of theEncounter. The data comes from all [place] treatment facilities. Test Date/Time Test Type Test Details Facility Name Dec 25, 2024 12:33 PM Consult Order COMMUNITY CARE-IMAGING CT-AUTO [id number] Cons Mold Shaker's Choice [facility] Jan 29, 2025 09:26 AM Consult Order COMMUNITY CARE-UROLOGY PB [id number] Cons Mold Shaker's Choice [facility] Jan 30, 2025 12:00 AM Laboratory - Chemistry Order OVA & PARASITE, STOOL (PB) STOOL FECES [facility] Jan 30, 2025 12:00 AM Laboratory - Microbiology Order C&S STOOL STOOL FECES [facility] Jan 30, 2025 12:00 AM Laboratory - Chemistry Order C DIFF EPI PCR PNL STOOL [facility]ECES [facility] Mar 14, 2025 12:00 AM Laboratory - Chemistry Order CBC BLOOD [facility] Mar 14, 2025 12:00 AM Laboratory - Chemistry Order COMPREHENSIVE METABOLIC PANEL GREEN LI/HEP BLD/PLAS PLASMA [facility] Mar 14, 2025 12:00 AM Laboratory - Chemistry Order HGA1C BLOOD [facility] Mar 14, 2025 12:00 AM Laboratory - Chemistry Order CHOLESTEROL PANEL (PB) GREEN LI/HEP BLD/PLAS PLASMA [facility] Mar 14, 2025 12:00 AM Laboratory - Chemistry Order TSH (MA-PB) GOLD/RED SST SERUM [facility] Advance Directives: All historical and current Section Date Range: From patient's date of to the date document was created. This section includes ALL of a patient's completed or amended [place] Advance and Rescinded Directives. The entries below indicate that a directive exists for the patient, but an actual copy is not included with this document. The data comes from all [facility]. Date Advance Directives Provider Source Oct 19, 2011 ADVANCE DIRECTIVE DISCUSSION OG BOYER [facility] Jul 27, 2006 ADVANCE DIRECTIVE SWAPNA CRABTREE [facility] Encounter Notes: All associated encounter notes This section contains the clinical notes associated to the Encounter. Date/Time Encounter Note(s) Provider Source Jan 30, 2025 02:19 PM LETTERS: LOCAL TITLE: COMMUNITY CARE-REFERRAL PB (AUTO-PRINT) STANDARD TITLE: LETTERS DATE OF NOTE: JAN 30, 2025@14:19:09 ENTRY DATE: JAN 30, 2025@14:19:10 AUTHOR: TRISTON HILLIARD COSIGNER: URGENCY: STATUS: COMPLETED Erica Nevarez [address] [address] Dear ERICA NEVAREZ, Your VA provider has referred you to a provider within the community for care. Your medical care for UROLOGY has been authorized with the Community Care Provider listed below. DO NOT REPORT TO THE [facility] Provider info: An appointment has been scheduled for you on: Feb 11, 2025 02:30 PM Office Name: [facility] Address: [address] [place] [address] Address: [place] [address] Auth #: [id number] Referral Issue Date: 02/11/2025 Expiration Date: 02/11/2026 If you are unable to keep this appointment or the appointment is no longer needed, please contact the community provider above for notification/rescheduling and then call the Stephane Ballesteros [place] Community Care Office at [phone] ext [phone]. If you need additional care/services not mentioned above, please contact your primary care provider for a new referral. Co-Payments: If you are required to pay a VA co-payment, you will be billed by the VA for each authorized visit that you attend. However, you are NOT REQUIRED to make co-payments to a Community Provider. Prescriptions: Your community provider may write a prescription related to the authorized care. If there is an immediate need for your prescriptions from your community care visit, you may be able to get up to a 14-day fill of your prescription at your own expense for the cost of the medication, and may seek reimbursement from the VA. If you require more than a 14-day supply or if the prescribed medication is not immediately needed, your community provider will send a prescription to a VA pharmacy so that the VA can provide you with your routine medication. In-network locations can be found at https://www.va.gov/find-locat ions/ Medical Devices: Your community provider may recommend that medical devices, adapted equipment, or other items be provided for the treatment or rehabilitation of your medical condition. Veterans are generally required to obtain these items through the Prosthetics and Sensory Aids Service (PSAS) in your referring facility. Emergency/Inpatient Services: You, your community provider, or your family must provide notification within 72hr or ER visit and/or admission by [phone]. Thank you for the opportunity to serve you and for your service to our great nation! Triston Ferreira. [facility] Care [facility] [address] [place] [address] TRISTON HILLIARD [facility]
--- OUTSIDE RECORDS SUMMARY | 2025-01-30 10:53 | XMS_ITS | Encounter Summary ---
Author Name [facility] [place] Address [address] [place] [address] Care Team Providers Care Web Press Jogger Name Role Phone MARY SAHU Primary Care [...] PART A Apr 27, 1986 PART A [id number] ARVIN RECINOS ERT PATIENT MEDICARE (WNR) MEDICARE (M) PART B Apr 27, 1986 PART B [id number] [phone] ARVIN RECINOS ERT PATIENT MEDICARE (WNR) MEDICARE (M) PART A Apr 27, 1986 PART A [id number] ARVIN RECINOS ERT PATIENT MEDICARE (WNR) MEDICARE (M) PART B Apr 27, 1986 PART B [id number] [phone] ARVIN RECINOS ERT PATIENT MEDICARE (WNR) MEDICARE (M) PART A Apr 27, 1986 PART A [id number] ARVIN RECINOS ERT PATIENT MEDICARE (WNR) MEDICARE (M) PART B Apr 27, 1986 PART B [id number] ARVIN RECINOS ERT PATIENT MEDICARE (WNR) MEDICARE (M) PART B Apr 27, 1986 PART B [id number] ARVIN RECINOS ERT PATIENT MEDICARE (WNR) MEDICARE (M) PART A Apr 27, 1986 PART A [id number] ARVIN RECINOS ERT PATIENT MEDICARE (WNR) MEDICARE (M) PART A Apr 27, 1986 PART A [id number] [phone] ARVIN RECINOS ERT PATIENT MEDICARE (WNR) MEDICARE (M) PART B Apr 27, 1986 PART B [id number] [phone] ARVIN RECINOS ERT PATIENT MEDICARE (WNR) MEDICARE (M) PART A Apr 27, 1986 PART A [id number] [phone] ARVIN RECINOS ERT PATIENT MEDICARE (WNR) MEDICARE (M) PART B Apr 27, 1986 PART B [id number] [phone] ARVIN RECINOS ERT PATIENT Selected Encounter This section includes the information on record at [place] for the Encounter. Date/Time Encounter Type Encounter Description Reason Provider Source Jan 30, 2025 03:53 PM PH1 ASSMT&MGMT NQHP 5-10 TELEPHONE PRIMARY CARE ICD-10-CM R19.7 Diarrhea, unspecified [facility] Sai Encounter Template Text not used by [place] Assessments - Encounter Diagnoses This section includes the primary and secondary diagnoses documented for the Encounter. Date/Time Primary/Secondary Diagnosis Diagnosis Name Provider Source Jan 30, 2025 03:53 PM PRIMARY Diarrhea, unspecified [facility] Plan of Treatment: Future Appointments (+ 6 months) and Future Tests (+/- 45 days) The Plan of Treatment section includes future care activities for the patient from all [place] treatmentfacilities. This section includes future appointments and future orders which are active, pending or scheduled. Future Appointments This section includes appointments that were scheduled to occur 6 months from the date of the Encounter, up to a maximum of 20 appointments. The data comes from all [place] treatment facilities. Appointment Date/Time Appointment Type Appointme nt Facility Name Feb 11, 2025 02:30 PM AMBULATORY - MEDICINE [facility] Feb 26, 2025 11:00 AM AM[facility]ULATORY - MEDICINE [facility] Active, Pending, and Scheduled Orders This section includes a listing of several types of active, pending, and scheduled orders, including clinic medications orders, diagnostic test orders, procedure orders and consult orders; where the start date of the order is 45 days before the date of the Encounter or 45 days after the date of theEncounter. The data comes from all [facility]. Test Date/Time Test Type Test Details Facility Name Dec 25, 2024 12:33 PM Consult Order COMMUNITY CARE-IMAGING CT-AUTO [id number] [employer] [facility] Jan 29, 2025 09:26 AM Consult Order COMMUNITY CARE-UROLOGY [id number] [facility] [facility] Jan 30, 2025 12:00 AM Laboratory - Chemistry Order OVA & PARASITE, STOOL (PB) STOOL FECES [facility] Jan 30, 2025 12:00 AM Laboratory - Chemistry Order C DIFF EPI PCR PNL STOOL FECES [facility] Jan 30, 2025 12:00 AM Laboratory - Microbiology Order C&S STOOL STOOL FECES [facility] Mar 14, 2025 12:00 AM Laboratory - Chemistry Order CBC BLOOD [facility] Mar 14, 2025 12:00 AM Laboratory - Chemistry Order COMPREHENSIVE METABOLIC PANEL GREEN LI/HEP BLD/PLAS PLASMA [facility] Mar 14, 2025 12:00 AM Laboratory - Chemistry Order [id number] BLOOD [facility] Mar 14, 2025 12:00 AM Laboratory - Chemistry Order CHOLESTEROL PANEL (PB) GREEN LI/HEP BLD/PLAS PLASMA [facility] Mar 14, 2025 12:00 AM Laboratory - Chemistry Order TSH (MA-PB) GOLD/RED SST SERUM [facility] Social History: Smoking Status (Most current) and Tobacco Use (All prior to encounter date) This section includes the most current, and the historical, smoking and tobacco- related health factors from the [facility] where the Encounter took place. Current Smoking Status This section includes the most current smoking, or tobacco-related health factor, from the [facility] where the Encounter took place. Date/Time Current Smoking Status Comment [place] Feb 16, 2024 11:00 AM VA-TOBACCO FORMER USER [facility] Tobacco Use History This section includes a history of the smoking, or tobacco-related health factors, that were collected on or before the date of the Encounter. The data comes from the [place] facility where the Encounter took place. Date/Time Smoking Status/Tobacco Use Comment F acility Feb 16, 2024 11:00 AM VA-TOBACCO QUIT 15 YRS OR MORE [facility] Feb 18, 2023 10:00 AM VA-TOBACCO FORMER USER [facility] Feb 18, 2023 10:00 AM VA-TOBACCO QUIT 15 YRS OR MORE [facility] Apr 30, 2015 09:57 AM QUIT TOBACCO >7 YEARS AGO [facility] Aug 22, 2013 12:59 PM QUIT TOBACCO >12 MO & <7 YRS AGO [facility] Advance Directives: All historical and current Section Date Range: From patient's date of to the date document was created. This section includes ALL of a patient's completed or amended [place] Advance and Rescinded Directives. The entries below indicate that a directive exists for the patient, but an actual copy is not included with this document. The data comes from all [place] facilities. Date Advance Directives Provider Source Oct 19, 2011 ADVANCE DIRECTIVE DISCUSSION [facility] Jul 27, 2006 ADVANCE DIRECTIVE SWAPNA CR[facility] Encounter Notes: All associated encounter notes This section contains the clinical notes associated to the Encounter. Date/Time Encounter Note(s) Provider Source Jan 30, 2025 03:54 PM TELEPHONE ENCOUNTE R NOTE: LOCAL TITLE: TELEPHONE NOTE STANDARD TITLE: TELEPHONE ENCOUNTER NOTE DATE OF NOTE: JAN 30, 2025@15:54 ENTRY DATE: JAN 30, 2025@15:54:38 AUTHOR: HIRAL GARCIA EXP COSIGNER: URGENCY: STATUS: COMPLETED Called the to follow up with him after his recent procedure for drainage of his scrotal abscess and to ask the if he had been scheduled for his urology appointment. The last note on the urology consult said number given to the to call and schedule because they had been unable to reach him for scheduling. The stated that they told him that they did not have the consult. Let the know that I would place a note on the consult asking that they refax the consult to the urology clinic. The also asked about a stress test results. Reports that his ortho provider had requested it. The then asked if he was going to have his hip replacement surgery or not. Let the know that the stress test was ordered it looked like as part of a presurgical assessment to decide about surgery. let him know that he should call ortho to talk about that result and to ask about surgery. The also reports that he has had diarrhea for about 2 weeks reporting that he is only having liquid stools, 4-5 a day. Also reports that his left leg feels like it is asleep, my toes feel like I have pins and needles, but the entire leg just feels like it is asleep. Discussed the above symptoms and assessment with Dr. Sahu. Let the know that she had ordered some stool labs to see why he was having diarrhea. 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 Educated the to do it on a day that he could drop it by the clinic right away, educating him that lab closed early on Tuesday. The has an upcoming appointment with Dr. Sahu on 02/26/25. The had no further questions at this time. /robby/ Hiral Garcia RN,BSN [place] Signed: 01/30/2025 16:07 Receipt Acknowledged By: 01/31/2025 08:33 /robby/ Mary Sahu MD [place] [facility] HIRAL GARCIA
--- OUTSIDE RECORDS SUMMARY | 2025-02-06 03:42 | XMS_ITS | Continuity of Care Document ---
Author Name [facility] Organization [facility] Care Team Providers Care Copy And Print Associate Name Role Phone [facility] Unavailable Unavailable Problems Combined list of problems from Department of Defense and Veterans Affairs facilities. It does not include entries that were removed or entered in error. Problem Status Onset Date Problem Type Date of Resolution Comments Source Exposure to potentially hazardous substance ([facility] [id number]) Active 024 Condition Sep 01, 2023 Entered By: JONNY JULIEN Comment: [facility] Documentation Initiative [facility] Neck pain, arthralgia, cervical spine Active 011 Condition Oct 12, 2011 Entered By: SHELBY LIM Comment: DISCECTOMY 2010 [facility] Vitamin D Deficiency Inactive 009 Condition 03/11/2017 [facility] Coronary Artery Disease Active 998 Condition Oct 12, 2011 Entered By: SHELBY LIM Comment: CABG X 4 VESSELS [facility] Low Back Pain Active 984 Condition Oct 12, 2011 Entered By: SHELBY LIM Comment: LAMINECTOMY X 4 LAST TIME 2008 [facility] Atherosclerosis of coronary artery without angina pectoris (SNOMED CT 673877602048667) Active Condition Jul 28 7 Entered By: BERT CHU Comment: CABG; 4 vessel; 2006 Entered By: BERT CHU Comment: inf. PA and ischemia, EF 55% MPS 08/03 [facility] Back pain (SNOMED CT 071869219) Active Condition Jul 28, 2006 Entered By: BERT CHU Comment: L5 diskFeb 2006 Entered By: BERT CHU Comment: s/p surgery 1983, 1984, 2006 Entered By: BERT CHU Comment: LESI 2006 Entered By: BERT CHU Comment: tight spinal stenosis, NF stenosis L5-S1 MRI 11/30 [facility] Benign essential hypertension (SNOMED CT 0839347) Active Condition [facility] Blood in urine Active Condition [facility] CAD - Coronary Artery Disease (SCT 03837845) Active Condition Jan 262022 Entered By: PAYTON SAMPSON RD D Comment: Hx. CABG. [place] [facility] Cannabis abuse Active Condition [facility] Cervicalgia (SNOMED CT 97111309) Active Condition Jul 28, 2006 Entered By: BERT CHU Comment: s/p cervical fusion 1985 [facility] Chronic back pain (SNOMED CT 615425453) Active Condition [place] [facility] Claudication Active Condition [place] [facility] Cognitive Disorder NOS Active Condition [facility] Constipation Active Condition [place] [facility] Dysphagia (SNOMED CT 31589041) Active Condition [place] [facility] Gastroesophageal reflux disease Active Condition [facility] Gastroesophageal Reflux Disorder Active Condition [facility] Hearing loss * (ICD-9-CM 389.9) Active Condition [facility] Hernia Active Condition Feb 18 Entered By: PAYTON SAMPSON RD D Comment: Surgery x2. [place] [facility] HTN - Hypertension (SCT 55441925) Active Condition [place] [facility] Hydrocele Active Condition [facility] Hyperlipidemia Active Condition [facility] Hyperlipidemia (SCT 44265503) Active Condition [place] [facility] Insomnia, unspecified Active Condition [facility] Iron deficiency anemia (SNOMED CT 77755442) Active Condition [place] [facility] MITRAL VALVE DISORDER Active Condition [facility] Neck injury (SNOMED CT 24541506) Active Condition [place] [facility] Osteoarthritis of right knee joint Active Condition [place] [facility] PAD - Peripheral arterial disease (SNOMED CT 993031825) Active Condition Jul Entered By: BERT CHU Comment: s/p stent left leg 2019 Entered By: SAÚL SANTIAGO Comment: 08/16/2019 stent left popliteal artery intor mid femoral artery-drug eluting balloon angioplasty [facility] Paresthesia * (ICD-9-CM 782.0) Active Condition [facility] Peripheral arterial occlusive disease Active Condition [place] [facility] Solitary nodule of lung Active Condition May 16, 2023 Entered By: JUAN JOSE HANLEY Comment: right base 1.7cmSep 2023 Entered By: JUAN JOSE HANLEY Comment: Stable bilobed perifissural or nodule unchanged from 04/2023 3 repeat 1 yearSep 2023 Entered By: JUAN JOSE HANLEY Comment: Stable 02/2024 repeat 1 year [place] [facility] TOBACCO USE CURRENT Active Condition [facility] ACUTE BRONCHITIS Inactive Condition 07/23/2010 [facility] Acute sinusitis (ICD-9-CM 461.9) Inactive Condition 03/11/2017 [facility] ACUTE URI NOS Inactive Condition 07/24/2010 [facility] Anemia * (ICD-9-CM 285.9) Inactive Condition 12/12/2017 [facility] Benign essential hypertension Inactive Condition 12/15/2017 [facility] CANCER SCREENING Inactive Condition 03/11/20172006 Entered By: BERT CHU Comment: colonoscopy 2001 (normal)Jul 28, 2006 Entered By: BERT CHU Comment: SILVER 10/31 [facility] Cerv Spondylos w Myelop Inactive Condition 12/15/2017 [facility] CHEST PAIN NOS Inactive Condition 03/11/2017 [facility] Dizziness * (ICD-9-CM 780.4) Inactive Condition 03/11/2017 [facility] Dyspepsia * (ICD-9-CM 536.8) Inactive Condition 12/12/2017 [facility] HYPERCHOLESTEROLEMIA Inactive Condition 12/12/2017 [facility] Impacted cerumen * (ICD-9-CM 380.4) Inactive Condition 03/11/2017 [facility] Olecranon bursitis (ICD-9-CM 726.33) Inactive Condition 03/11/2017 [facility] Orthostatic Hypotension * (ICD-9-CM 458.0) Inactive Condition 03/11/2017 [facility] Osteoarthritis Inactive Condition 03/11/2017 Jul 28, 2006 Entered By: BERT CHU Comment: cervical spineFeb 2006 Entered By: BERT CHU Comment: lumbar spineFeb 2006 Entered By: BERT CHU Comment: left hip [facility] Pseudophakia Inactive Condition 12/15/2017 [facility] Diagnosis: ICD-10-CM R19.7 Diarrhea, unspecified Active Diagnosis [facility] Diagnosis: ICD-10-CM N49.2 Inflammatory disorders of scrotum Active Diagnosis [facility] Diagnosis: ICD-10-CM I25.10 Athscl heart disease of [place] coronary artery w/o ang pctrs Active Diagnosis [facility] Diagnosis: ICD-10-CM M13.0 Polyarthritis, unspecified Active Diagnosis [facility] Diagnosis: ICD-10-CM M79.675 Pain in left toe(s) Active Diagnosis [facility] Diagnosis: ICD-10-CM G89.29 Other chronic pain Active Diagnosis [facility] Diagnosis: ICD-10-CM Z23 Encounter for immunization Active Diagnosis [facility] Diagnosis: ICD-10-CM R60.0 Localized edema Active Diagnosis [facility] Diagnosis: ICD-10-CM R93.89 Abnormal findings on dx imaging of oth body structures Active Diagnosis [facility] Diagnosis: ICD-10-CM I10 Essential (primary) hypertension Active Diagnosis [facility] Diagnosis: ICD-10-CM M17.11 Unilateral primary osteoarthritis, right knee Active Diagnosis [facility] Diagnosis: ICD-10-CM Z01.30 Encounter for exam of blood pressure w/o abnormal findings Active Diagnosis [facility] Diagnosis: ICD-10-CM I95.9 Hypotension, unspecified Active Diagnosis [facility] Diagnosis: ICD-10-CM Z46.1 Encounter for fitting and adjustment of hearing aid Active Diagnosis [place] [facility] Diagnosis: ICD-10-CM H90.3 Sensorineural hearing loss, bilateral Active Diagnosis [place] [facility] Diagnosis: ICD-10-CM H61.22 Impacted cerumen, left ear Active Diagnosis [facility] Diagnosis: ICD-10-CM Z71.89 Other specified counseling Active Diagnosis [facility] Diagnosis: ICD-10-CM L02.214 Cutaneous abscess of groin Active Diagnosis [facility] [place] [facility] Diagnosis: ICD-10-CM M54.50 Low back pain, unspecified Active Diagnosis [facility] Medications Combined list of outpatient medications [...] FOR HIGH CHOLESTE ROL ORAL ACTIVE 02/28/2025 [id number] 5 JUAN JOSE HANLEY [address] [place] [address] [facility] ATORVASTATI N CA 80MG TAB TAKE ONE TABLET BY MOUTH EVERY EVENING FOR HIGH CHOLESTE ROL ORAL DISCONT INUED 02/19/2024 [id number] NOEMY SAMPSON [address] [place] [address] [facility] BACLOFEN 10MG TAB TAKE ONE TABLET BY MOUTH THREE TIMES A DAY NEEDED FOR MUSCLE SPASM ORAL ACTIVE 03/06/2025 [id number] 5 JUAN JOSE HANLEY [address] [place] [address] [facility] BACLOFEN 10MG TAB TAKE ONE TABLET BY MOUTH THREE TIMES A DAY NEEDED FOR MUSCLE SPASM ORAL DISCONT INUED 02/19/2024 [id number] 4 NOEMY SAMPSON [address] [place] [address] [facility] CARVEDILOL 6.25MG TAB TAKE ONE-HALF TABLET BY MOUTH TWICE A DAY FOR HIGH BLOOD PRESSURE TAKE WITH FOOD. ORAL SUSPEND ED 04/25/2025 [id number] JUAN JOSE HANLEY [address] [place] [address] [facility] CARVEDILOL 6.25MG TAB TAKE ONE-HALF TABLET BY MOUTH TWICE A DAY FOR HIGH BLOOD PRESSURE TAKE WITH FOOD. ORAL DISCONT INUED 02/19/2024 [id number] 4 NOEMY SAMPSON [address] [place] [address] [facility] CHOLECALCIF NATHALIE 25MCG (1,000UNIT) TAB TAKE ONE TABLET BY MOUTH ONCE A DAY FOR VITAMIN D DEFICIEN CY ORAL SUSPEND ED 02/05/2026 [id number] 5 JUAN JOSE HANLEY [address] [place] [address] [facility] CHOLECALCIF NATHALIE 25MCG (1,000UNIT) TAB TAKE ONE TABLET BY MOUTH ONCE A DAY FOR VITAMIN D DEFICIEN CY ORAL DISCONT INUED 03/13/2025 [id number] 5 JUAN JOSE HANLEY [address] [place] [address] [facility] CHOLECALCIF NATHALIE 25MCG (1,000UNIT) TAB TAKE ONE TABLET BY MOUTH ONCE A DAY FOR VITAMIN D DEFICIEN CY ORAL DISCONT INUED 02/19/2024 [id number] 4 NOEMY SAMPSON [address] [place] [address] [facility] CILOSTAZOL 100MG TAB TAKE ONE-HALF TABLET BY MOUTH TWICE A DAY FOR INTERMIT TENT CLAUDICA TION TAKE 30 MINUTES BEFORE OR AT LEAST 2 HOURS AFTER FOOD. DO NOT TAKE WITH GRAPEFRU IT JUICE. ORAL ACTIVE 04/25/2025 [id number] 5 JUAN JOSE HANLEY [address] [place] [address] [facility] CILOSTAZOL 100MG TAB TAKE ONE-HALF TABLET BY MOUTH TWICE A DAY FOR INTERMIT TENT CLAUDICA TION TAKE 30 MINUTES BEFORE OR AT LEAST 2 HOURS AFTER FOOD. DO NOT TAKE WITH GRAPEFRU IT JUICE. ORAL DISCONT INUED 02/19/2024 [id number] 4 NOEMY SAMPSON [address] [place] [address] [facility] CLOPIDOGREL BISULFATE 75MG TAB TAKE ONE TABLET BY MOUTH ONCE A DAY FOR ACUTE CORONARY SYNDROME ORAL SUSPEND ED 12/18/2025 [id number] 5 JUAN JOSE HANLEY [address] [place] [address] [facility] CLOPIDOGREL BISULFATE 75MG TAB TAKE ONE TABLET BY MOUTH ONCE A DAY FOR ACUTE CORONARY SYNDROME ORAL DISCONT INUED 03/13/2025 [id number] 5 JUAN JOSE HANLEY [address] [place] [address] [facility] CLOPIDOGREL BISULFATE 75MG TAB TAKE ONE TABLET BY MOUTH ONCE A DAY FOR ACUTE CORONARY SYNDROME ORAL DISCONT INUED 02/19/2024 [id number] NOEMY SAMPSON [address] [place] [address] [facility] DICLOFENAC NA 1% GEL,TOP APPLY 4 GM TO AFFECTED AREA(S) FOUR TIMES A DAY APPLY TO SINGLE KNEE, ANKLE, FOOT. DO NOT EXCEED MORE THAN 16 GRAMS DAILY TO ANY LOWER EXTREMIT Y JOINT. NOT MORE THAN 8 GRAMS DAILY TO ANY UPPER EXTREMIT Y JOINT. MAX 32GM/DAY OVER ALL JOINTS. (MEASURE DOSE WITH RULER ATTACHED INSIDE BOX) TOPICA L ACTIVE 04/24/2025 [id number] ANNALISAAMBROSIO TOYIN 2023 [address] [place] [facility] FERROUS SO4 325MG TAB TAKE ONE TABLET BY MOUTH ONCE A DAY FOR IRON SUPPLEME NTATION. ORAL ACTIVE 08/21/2025 [id number] JUAN JOSE HANLEY 2024 [address] [place] [facility] FERROUS SO4 325MG TAB TAKE ONE TABLET BY MOUTH ONCE A DAY FOR IRON SUPPLEME NTATION. ORAL DISCONT INUED 10/11/2024 [id number] JUAN JOSE HANLEY 2023 100 [place] [facility] LEFLUNOMIDE 20MG TAB TAKE ONE TABLET BY MOUTH ONCE A DAY TAKE AT SAME TIME EACH DAY. ORAL ACTIVE 01/03/2026 [id number] HARPAL VIEYRA 2024 90 [place] [facility] LEFLUNOMIDE 20MG TAB TAKE ONE TABLET BY MOUTH ONCE A DAY TAKE AT SAME TIME EACH DAY. ORAL DISCONT INUED 11/29/2025 [id number] 5 HARPAL VIEYRA 2024 90 [place] [facility] LEFLUNOMIDE 20MG TAB TAKE ONE TABLET BY MOUTH ONCE A DAY TAKE AT SAME TIME EACH DAY. ORAL DISCONT INUED 10/10/2025 [id number] 5 HARPAL VIEYRA 2024 30 [place] [facility] LISINOPRIL 20MG TAB TAKE ONE AND ONE-HALF TABLETS BY MOUTH ONCE A DAY FOR HIGH BLOOD PRESSURE ORAL ACTIVE 04/25/2025 [id number] 5 JUAN JOSE HANLEY 2023 [address] [place] [facility] LISINOPRIL 20MG TAB TAKE ONE AND ONE-HALF TABLETS BY MOUTH ONCE A DAY FOR HIGH BLOOD PRESSURE ORAL DISCONT INUED 02/19/2024 [id number] NOEMY SAMPSON 2022 135 [facility] NALOXONE HCL 4MG/SPRAY SOLN,SPRAY, NASAL USE 1 SPRAY (4MG) INTO ONE NOSTRIL ONLY ONE-TIME FOR OPIOID OVERDOSE DO NOT PRIME NASAL SPRAY. SPRAY ONE DOSE IN ONE NOSTRIL, GIVE ADDITION AL DOSE IF PATIENT DOES NOT START BREATHIN G WITHIN 2-3 MINUTES OR STOPS BREATHIN G AGAIN. CALL 911. IF USED, NOTIFY PROVIDER . NASAL 10/23/2024 [id number] 5 [facility] 2024 2 [facility] OXYCODONE HCL 5MG/ACETAMI NOPHEN 325MG TAB TAKE 1 TO 2 TABS BY MOUTH EVERY 6 HOURS NEEDED FOR CHRONIC PAIN - NOTE: DO NOT EXCEED 4000MG PER DAY ACETAMIN OPHEN (APAP) ORAL DISCONT INUED BY PROVIDE R 08/24/2024 [id number] 5 [facility] 2024 120 [facility] PANTOPRAZOL E NA 40MG TAB,EC TAKE ONE TABLET BY MOUTH EVERY MORNING BEFORE A MEAL FOR GASTROES OPHAGEAL REFLUX DISEASE TAKE 30 MINUTES BEFORE MEAL(S) ORAL ACTIVE 10/16/2025 [id number] 5 [facility] 2024 90 [facility] PANTOPRAZOL E NA 40MG TAB,EC TAKE ONE TABLET BY MOUTH EVERY MORNING BEFORE A MEAL FOR GASTROES OPHAGEAL REFLUX DISEASE TAKE 30 MINUTES BEFORE MEAL(S) ORAL DISCONT INUED 01/31/2025 [id number] 5 [facility] 2023 90 [facility] PANTOPRAZOL E NA 40MG TAB,EC TAKE ONE TABLET BY MOUTH EVERY MORNING BEFORE A MEAL FOR GASTROES OPHAGEAL REFLUX DISEASE TAKE 30 MINUTES BEFORE MEAL(S) ORAL DISCONT INUED 02/19/2024 [id number] 4 NOEMY SAMPSON 2022 90 [facility] PREDNISONE 10MG TAB TAKE ONE-HALF TABLET BY MOUTH ONCE A DAY FOR SWELLING AND INFLAMMA TIONS TAKE WITH FOOD OR MILK. ORAL DISCONT INUED 09/20/2025 [id number] 5 HARPAL VIEYRA 2024 45 [place] [facility] PREDNISONE 10MG TAB TAKE TWO TABLETS BY MOUTH ONCE A DAY FOR 5 DAYS, THEN TAKE ONE TABLET EVERY MORNING FOR 5 DAYS, THEN TAKE ONE-HALF TABLET ONCE A DAY FOR SWELLING AND INFLAMMA TIONS TAKE WITH FOOD OR MILK. ORAL DISCONT INUED 09/20/2025 [id number] 5 HARPAL VIEYRA 2024 90 [place] [facility] PREDNISONE 5MG TAB TAKE ONE TABLET BY MOUTH ONCE A DAY FOR JOINT PAIN. TAKE WITH FOOD OR MILK. ORAL ACTIVE 01/03/2026 [id number] 5 HARPAL VIEYRA 2024 90 [place] [facility] PREGABALIN 150MG CAP,ORAL TAKE ONE CAPSULE BY MOUTH TWICE A DAY FOR NERVE PAIN *MAY CAUSE DROWSINE SS* ORAL SUSPEND ED 08/01/2025 [id number] 5 JUAN JOSE HANLEY 2024 60 [facility] PREGABALIN 150MG CAP,ORAL TAKE ONE CAPSULE BY MOUTH TWICE A DAY FOR NERVE PAIN *MAY CAUSE DROWSINE SS* ORAL DISCONT INUED 07/05/2024 [id number] 5 JUAN JOSE HANLEY 2023 60 [facility] PREGABALIN 150MG CAP,ORAL TAKE ONE CAPSULE BY MOUTH TWICE A DAY FOR NERVE PAIN *MAY CAUSE DROWSINE SS* ORAL DISCONT INUED 01/26/2024 [id number] 4 JUAN JOSE HANLEY 2023 60 [facility] PREGABALIN 150MG CAP,ORAL TAKE ONE CAPSULE BY MOUTH TWICE A DAY FOR NERVE PAIN *MAY CAUSE DROWSINE SS* ORAL 01/02/2025 [id number] 5 JUAN JOSE HANLEY 2024 60 [facility] Immunizations Combined list of available immunizations from the Department of Defense and Veterans Affairs facilities. Immunization Series Date Given Administered By Site Reaction Lot Number CVX Code Drug Manager Financial Reporting Status Comments Source INFLUENZA, HIGH-DOSE, TRIVALENT, PF 2023 ISAACTIESHASHARIKRISTAN GUAMAN RIGHT DELTO ID [id number] 135 complet ed [facility] ZOSTER RECOMBINANT 2022 SHARI GRAY RIGHT DELTO ID [id number] 187 complet ed [facility] PNEUMOCOCCAL POLYSACCHARID E PPV23 1 2022 33 complet ed HISTORICA L INFORMATI ON - FROM OTHER REGISTRY, [facility] INFLUENZA VACCINE, QUADRIVALENT, ADJUVANTED 2021 [...] complet ed [employer] Lot R [id number] Exp: 20 Sep 2019 [facility] INFLUENZA, HIGH DOSE SEASONAL 2016 135 complet ed [facility] PNEUMOCOCCAL CONJUGATE PCV 13 2016 133 complet ed [employer],lot [id number],ex p-09/2017 [facility] TDAP 2016 115 complet ed [employer] h truong,lot [id number],exp -12/29/2018 [facility] INFLUENZA, SEASONAL, INJECTABLE 2015 141 complet ed [facility] PNEUMOCOCCAL POLYSACCHARID E PPV23 2015 33 complet ed [facility] INFLUENZA, SEASONAL, INJECTABLE, PRESERVATIVE FREE 2014 140 complet ed [facility] TDAP 2014 115 complet ed [facility] INFLUENZA, UNSPECIFIED FORMULATION 2013 88 complet ed [facility] TETANUS/DIPTH ERIA/PERTUSSI S (TDAP) (HISTORICAL) 2012 NONE 115 complet ed [id number] exp 02/14/15 [facility] INFLUENZA, UNSPECIFIED FORMULATION 2011 88 complet ed [facility] INFLUENZA, UNSPECIFIED FORMULATION 2010 88 complet ed [facility] INFLUENZA, UNSPECIFIED FORMULATION 2010 88 complet ed [facility] UNSPECIFIED FORMULATION 2009 139 complet ed [employer] Lot# [id number] Exp: 29 Aug 2011 [facility] NOVEL INFLUENZA-H1N 1-09, ALL FORMULATIONS 2009 128 complet ed [employer] [facility] INFLUENZA, UNSPECIFIED FORMULATION 2007 88 complet ed [facility] INFLUENZA, UNSPECIFIED FORMULATION 2006 88 complet ed [facility] PNEUMOCOCCAL, UNSPECIFIED FORMULATION 2006 109 complet ed HISTORICA L INFORMATI ON - FROM OTHER REGISTRY, [facility] INFLUENZA, UNSPECIFIED FORMULATION 2006 88 complet ed [facility] TD(ADULT) UNSPECIFIED FORMULATION 2000 139 complet ed [facility] PNEUMOCOCCAL POLYSACCHARID E PPV23 1998 33 [...] 11:50 AM Reporting Lab: [place] [facility] [address] [place] [address] Performin g Lab: [place] [facility] [address] [place] [address] [facility] DRUG SCREEN URINE-inho use (PB) OPIATES [PRESENCE] IN URINE BY SCREEN METHOD Negative 12/03 Specimen Type: URINE No comment entered. Ordering Provider: JUAN JOSE HANLEY Report Released Date/Time : Dec 03, 2024 11:50 AM Reporting Lab: [place] [facility] [address] [place] [address] Performin g Lab: [place] [facility] [address] [place] [address] [facility] DRUG SCREEN URINE-inho use (PB) COCAINE [PRESENCE] IN URINE Negative 12/03 Specimen Type: URINE No comment entered. Ordering Provider: JUAN JOSE HANLEY Report Released Date/Time : Dec 03, 2024 11:50 AM Reporting Lab: [place] [facility] [address] [place] [address] Performin g Lab: [place] [facility] [address] [place] [address] [facility] DRUG SCREEN URINE-inho use (PB) TETRAHYDROC ANNABINOL [PRESENCE] IN URINE BY SCREEN METHOD Positive 12/03 Specimen Type: URINE No comment entered. Ordering Provider: JUAN JOSE HANLEY Report Released Date/Time : Dec 03, 2024 11:50 AM Reporting Lab: [place] [facility] [address] [place] [address] Performin g Lab: [place] [facility] [address] [place] [address] [facility] DRUG SCREEN URINE-inho use (PB) BENZODIAZEP YONI [PRESENCE] IN URINE BY SCREEN METHOD Negative 12/03 Specimen Type: URINE No comment entered. Ordering Provider: JUAN JOSE HANLEY Report Released Date/Time : Dec 03, 2024 11:50 AM Reporting Lab: [place] [facility] [address] [place] [address] Performin g Lab: [place] [facility] [address] [place] [address] [facility] DRUG SCREEN URINE-inho use (PB) AMPHETAMINE [PRESENCE] IN URINE BY SCREEN METHOD Negative 12/03 Specimen Type: URINE No comment entered. Ordering Provider: JUAN JOSE HANLEY Report Released Date/Time : Dec 03, 2024 11:50 AM Reporting Lab: [place] [facility] [address] [place] [address] Performin g Lab: [place] [facility] [address] [place] [address] [facility] DRUG SCREEN URINE-inho use (PB) CREATININE [MASS/VOLUM E] IN URINE 17.22 mg/dL 12/03 Specimen Type: URINE No comment entered. Ordering Provider: JUAN JOSE HANLEY Report Released Date/Time : Dec 03, 2024 11:50 AM Reporting Lab: [place] [facility] [address] [place] [address] Performin g Lab: [place] [facility] [address] [place] [address] [facility] DRUG SCREEN URINE-inho use (PB) OXYCODONE CUTOFF [MASS/VOLUM E] IN URINE FOR SCREEN METHOD Negative 12/03 Specimen Type: URINE No comment entered. Ordering Provider: JUAN JOSE HANLEY Report Released Date/Time : Dec 03, 2024 11:50 AM Reporting Lab: [place] [facility] [address] [place] [address] Performin g Lab: [place] [facility] [address] [place] [address] [facility] DRUG SCREEN URINE-inho use (PB) BUPRENORPHI NE [PRESENCE] IN URINE Negativen g/mL 12/03 Specimen Type: URINE No comment entered. Ordering Provider: JUAN JOSE HANLEY Report Released Date/Time : Dec 03, 2024 11:50 AM Reporting Lab: [place] [facility] [address] [place] [address] Performin g Lab: [place] [facility] [address] [place] [address] [facility] DRUG SCREEN URINE-inho use (PB) ETHANOL [MASS/VOLUM E] IN URINE <10mg/dL 0 - 20 12/03 L Specimen Type: URINE No comment entered. Ordering Provider: JUAN JOSE HANLEY Report Released Date/Time : Dec 03, 2024 11:50 AM Reporting Lab: [place] [facility] [address] [place] [address] Performin g Lab: [place] [facility] [address] [place] [address] [facility] DRUG SCREEN URINE-inho use (PB) FENTANYL [PRESENCE] IN URINE Negativen g/mL 12/03 Specimen Type: URINE No comment entered. Ordering Provider: JUAN JOSE HANLEY Report Released Date/Time : Dec 03, 2024 11:50 AM Reporting Lab: [place] [facility] [address] [place] [address] Performin g Lab: [place] [facility] [address] [place] [address] [facility] BRAIN NATRIURETI C PEPTIDE NATRIURETIC PEPTIDE B [MASS/VOLUM E] IN SERUM OR PLASMA 389 pg/mL 0 - 100 11/20 H Specimen Type: PLASMA No comment entered. Ordering Provider: JUAN JOSE HANLEY Report Released Date/Time : November 20, 2024 12:08 PM Reporting Lab: [place] [facility] [address] [place] [address] 8 Performin g Lab: [place] [facility] [address] [place] [address] [facility] CBC LEUKOCYTES [#/VOLUME] IN BLOOD BY AUTOMATED COUNT 5.2 10*3/uL 3.6 - 11.2 11/20 Specimen Type: BLOOD No comment entered. Ordering Provider: JUAN JOSE HANLEY Report Released Date/Time : November 20, 2024 12:08 PM Reporting Lab: [place] [facility] [address] [place] [address] 8 Performin g Lab: [place] [facility] [address] [place] [address] 8 [facility] CBC ERYTHROCYTE S [#/VOLUME] IN BLOOD BY AUTOMATED COUNT 4.48 10*6/uL 4.10 - 5.70 11/20 Specimen Type: BLOOD No comment entered. Ordering Provider: JUAN JOSE HANLEY Report Released Date/Time : November 20, 2024 12:08 PM Reporting Lab: [place] [facility] [address] [place] [address] 8 Performin g Lab: [place] [facility] [address] [place] [address] [facility] CBC HEMOGLOBIN [MASS/VOLUM E] IN BLOOD 13.3 g/dL 13.1 - 16.8 11/20 Specimen Type: BLOOD No comment entered. Ordering Provider: JUAN JOSE HANLEY Report Released Date/Time : November 20, 2024 12:08 PM Reporting Lab: [place] [facility] [address] [place] [address] 8 Performin g Lab: [place] [facility] [address] [place] [phone] [facility] CBC HEMATOCRIT [VOLUME FRACTION] OF BLOOD 43.1 38.2 - 48.4 11/20 Specimen Type: BLOOD No comment entered. Ordering Provider: JUAN JOSE HANLEY Report Released Date/Time : November 20, 2024 12:08 PM Reporting Lab: [place] [facility] [address] [place] [phone] 8 Performin g Lab: [place] [facility] [address] [place] [phone] 8 [facility] CBC MCV [ENTITIC VOLUME] BY AUTOMATED COUNT 96.2 fL 80.0 - 100.0 11/20 Specimen Type: BLOOD No comment entered. Ordering Provider: JUAN JOSE HANLEY Report Released Date/Time : November 20, 2024 12:08 PM Reporting Lab: [place] [facility] [address] [place] [address] 8 Performin g Lab: [place] [facility] [address] [place] [address] [facility] CBC MCH [ENTITIC MASS] BY AUTOMATED COUNT 29.7 pg 27.0 - 34.0 11/20 Specimen Type: BLOOD No comment entered. Ordering Provider: JUAN JOSE HANLEY Report Released Date/Time : November 20, 2024 12:08 PM Reporting Lab: [place] [facility] [address] [place] [address] 8 Performin g Lab: [place] [facility] [address] [place] [phone] [facility] CBC MCHC [MASS/VOLUM E] BY AUTOMATED COUNT 30.9 g/dL 33.0 - 36.0 11/20 L Specimen Type: BLOOD No comment entered. Ordering Provider: JUAN JOSE HANLEY Report Released Date/Time : November 20, 2024 12:08 PM Reporting Lab: [place] [facility] [address] [place] [address] 8 Performin g Lab: [place] [facility] [address] [place] [address] 8 [facility] CBC PLATELETS [#/VOLUME] IN BLOOD BY AUTOMATED COUNT 157 10*3/uL 150 - 400 11/20 Specimen Type: BLOOD No comment entered. Ordering Provider: JUAN JOSE HANLEY Report Released Date/Time : November 20, 2024 12:08 PM Reporting Lab: [place] [facility] [address] [place] [address] 8 Performin g Lab: [place] [facility] [address] [place] [address] [facility] CBC PLATELET MEAN VOLUME [ENTITIC VOLUME] IN BLOOD BY AUTOMATED COUNT 10.9 fL 7.5 - 11.2 11/20 Specimen Type: BLOOD No comment entered. Ordering Provider: JUAN JOSE HANLEY Report Released Date/Time : November 20, 2024 12:08 PM Reporting Lab: [place] [facility] [address] [place] [address] 8 Performin g Lab: [place] [facility] [address] [place] [address] 8 [facility] CBC ERYTHROCYTE DISTRIBUTIO N WIDTH [RATIO] BY AUTOMATED COUNT 15.6 11.8 - 15.1 11/20 H Specimen Type: BLOOD No comment entered. Ordering Provider: JUAN JOSE HANLEY Report Released Date/Time : November 20, 2024 12:08 PM Reporting Lab: [place] [facility] [address] [place] [address] 8 Performin g Lab: [place] [facility] [address] [place] [address] 8 [facility] CBC LYMPHOCYTES /100 LEUKOCYTES IN BLOOD BY AUTOMATED COUNT 14.1 11/20 Specimen Type: BLOOD No comment entered. Ordering Provider: JUAN JOSE HANLEY Report Released Date/Time : November 20, 2024 12:08 PM Reporting Lab: [place] [facility] [address] [place] [address] 8 Performin g Lab: [place] [facility] [address] [place] [address] [facility] CBC MONOCYTES/1 00 LEUKOCYTES IN BLOOD BY AUTOMATED COUNT 3.5 11/20 Specimen Type: BLOOD No comment entered. Ordering Provider: JUAN JOSE HANLEY Report Released Date/Time : November 20, 2024 12:08 PM Reporting Lab: [place] [facility] [address] [place] [address] 8 Performin g Lab: [place] [facility] [address] [place] [address] 8 [facility] CBC NEUTROPHILS /100 LEUKOCYTES IN BLOOD BY AUTOMATED COUNT 80.4 11/20 Specimen Type: BLOOD No comment entered. Ordering Provider: JUAN JOSE HANLEY Report Released Date/Time : November 20, 2024 12:08 PM Reporting Lab: [place] [facility] [address] [place] [address] 8 Performin g Lab: [place] [facility] [address] [place] [address] [facility] CBC EOSINOPHILS /100 LEUKOCYTES IN BLOOD BY AUTOMATED COUNT 0.6 11/20 Specimen Type: BLOOD No comment entered. Ordering Provider: JUAN JOSE HANLEY Report Released Date/Time : November 20, 2024 12:08 PM Reporting Lab: [place] [facility] [address] [place] [address] 8 Performin g Lab: [place] [facility] [address] [place] [address] [facility] CBC BASOPHILS/1 00 LEUKOCYTES IN BLOOD BY AUTOMATED COUNT 0.8 11/20 Specimen Type: BLOOD No comment entered. Ordering Provider: JUAN JOSE HANLEY Report Released Date/Time : November 20, 2024 12:08 PM Reporting Lab: [place] [facility] [address] [place] [address] 8 Performin g Lab: [place] [facility] [address] [place] [address] [facility] CBC LYMPHOCYTES [#/VOLUME] IN BLOOD BY AUTOMATED COUNT 0.73 10*3/uL 0.77 - 4.50 11/20 L Specimen Type: BLOOD No comment entered. Ordering Provider: JUAN JOSE HANLEY Report Released Date/Time : November 20, 2024 12:08 PM Reporting Lab: [place] [facility] [address] [place] [address] 8 Performin g Lab: [place] [facility] [address] [place] [address] [facility] CBC MONOCYTES [#/VOLUME] IN BLOOD BY AUTOMATED COUNT 0.18 10*3/uL 0.19 - 0.8 11/20 L Specimen Type: BLOOD No comment entered. Ordering Provider: JUAN JOSE HANLEY Report Released Date/Time : November 20, 2024 12:08 PM Reporting Lab: [place] [facility] [address] [place] [address] 8 Performin g Lab: [place] [facility] [address] [place] [address] [facility] CBC NEUTROPHILS [#/VOLUME] IN BLOOD BY AUTOMATED COUNT 4.18 10*3/uL 2.10 - 8.00 11/20 Specimen Type: BLOOD No comment entered. Ordering Provider: JUAN JOSE HANLEY Report Released Date/Time : November 20, 2024 12:08 PM Reporting Lab: [place] [facility] [address] [place] [address] 8 Performin g Lab: [place] [facility] [address] [place] [address] 8 [facility] CBC EOSINOPHILS [#/VOLUME] IN BLOOD BY AUTOMATED COUNT 0.03 10*3/uL 0.00 - 0.60 11/20 Specimen Type: BLOOD No comment entered. Ordering Provider: JUAN JOSE HANLEY Report Released Date/Time : November 20, 2024 12:08 PM Reporting Lab: [place] [facility] [address] [place] [address] 8 Performin g Lab: [place] [facility] [address] [place] [address] 8 [facility] CBC BASOPHILS [#/VOLUME] IN BLOOD BY AUTOMATED COUNT 0.04 10*3/uL 0.00 - 0.20 11/20 Specimen Type: BLOOD No comment entered. Ordering Provider: JUAN JOSE HANLEY Report Released Date/Time : November 20, 2024 12:08 PM Reporting Lab: [place] [facility] [address] [place] [address] 8 Performin g Lab: [place] [facility] [address] [place] [address] 8 [facility] CBC IMMATURE GRANULOCYTE S/100 LEUKOCYTES IN BLOOD BY AUTOMATED COUNT 0.6 11/20 Specimen Type: BLOOD No comment entered. Ordering Provider: JUAN JOSE HANLEY Report Released Date/Time : November 20, 2024 12:08 PM Reporting Lab: [place] [facility] [address] [place] [address] 8 Performin g Lab: [place] [facility] [address] [place] [address] [facility] CBC IMMATURE GRANULOCYTE S [#/VOLUME] IN BLOOD BY AUTOMATED COUNT 0.03 10*3/uL 0.00 - 0.05 11/20 Specimen Type: BLOOD No comment entered. Ordering Provider: JUAN JOSE HANLEY Report Released Date/Time : November 20, 2024 12:08 PM Reporting Lab: [place] [facility] [address] [place] [address] 8 Performin g Lab: [place] [facility] [address] [place] [address] [facility] CHOLESTERO L PANEL (PB) CHOLESTEROL [MASS/VOLUM E] IN SERUM OR PLASMA 166 mg/dL 0 - 200 11/20 Specimen Type: PLASMA No comment entered. Ordering Provider: JUAN JOSE HANLEY Report Released Date/Time : November 20, 2024 12:08 PM Reporting Lab: [place] [facility] [address] [place] [address] 8 Performin g Lab: [place] [facility] [address] [place] [address] 8 [facility] CHOLESTERO L PANEL (PB) TRIGLYCERID E [MASS/VOLUM E] IN SERUM OR PLASMA 93 mg/dL 0 - 150 11/20 Specimen Type: PLASMA No comment entered. Ordering Provider: JUAN JOSE HANLEY Report Released Date/Time : November 20, 2024 12:08 PM Reporting Lab: [place] [facility] [address] [place] [address] 8 Performin g Lab: [place] [facility] [address] [place] [address] 8 [facility] CHOLESTERO L PANEL (PB) CHOLESTEROL IN LDL [MASS/VOLUM E] IN SERUM OR PLASMA BY CALCULATION 72.4 mg/dL 11/20 Specimen Type: PLASMA No comment entered. Ordering Provider: JUAN JOSE HANLEY Report Released Date/Time : November 20, 2024 12:08 PM Reporting Lab: [place] [facility] [address] [place] [address] 8 Performin g Lab: [place] [facility] [address] [place] [address] [facility] CHOLESTERO L PANEL (PB) CHOLESTEROL IN HDL [MASS/VOLUM E] IN SERUM OR PLASMA 75.0 mg/dL 40 11/20 H Specimen Type: PLASMA No comment entered. Ordering Provider: JUAN JOSE HANLEY Report Released Date/Time : November 20, 2024 12:08 PM Reporting Lab: [place] [facility] [address] [place] [address] 8 Performin g Lab: [place] [facility] [address] [place] [address] 8 [facility] CHOLESTERO L PANEL (PB) CHOLESTEROL IN HDL/CHOLEST NATHALIE.TOTAL [MASS RATIO] IN SERUM OR PLASMA 45.2 25 11/20 Specimen Type: PLASMA No comment entered. Ordering Provider: JUAN JOSE HANLEY Report Released Date/Time : November 20, 2024 12:08 PM Reporting Lab: [place] [facility] [address] [place] [address] 8 Performin g Lab: [place] [facility] [address] [place] [address] 8 [facility] COMPREHENS ISAURO METABOLIC PANEL CREATININE [MASS/VOLUM E] IN SERUM OR PLASMA 0.92 mg/dL 0.7 - 1.3 11/20 Specimen Type: PLASMA No comment entered. Ordering Provider: JUAN JOSE HANLEY Report Released Date/Time : November 20, 2024 12:08 PM Reporting Lab: [place] [facility] [address] [place] [address] 8 Performin g Lab: [place] [facility] [address] [place] [address] 8 [facility] COMPREHENS ISAURO METABOLIC PANEL UREA NITROGEN [MASS/VOLUM E] IN SERUM OR PLASMA 16 mg/dL 9 - 25 11/20 Specimen Type: PLASMA No comment entered. Ordering Provider: JUAN JOSE HANLEY Report Released Date/Time : November 20, 2024 12:08 PM Reporting Lab: [place] [facility] [address] [place] [address] 8 Performin g Lab: [place] [facility] [address] [place] [address] 8 [facility] COMPREHENS ISAURO METABOLIC PANEL GLUCOSE [MASS/VOLUM E] IN SERUM OR PLASMA 95 mg/dL 72 - 99 11/20 Specimen Type: PLASMA No comment entered. Ordering Provider: JUAN JOSE HANLEY Report Released Date/Time : November 20, 2024 12:08 PM Reporting Lab: [place] [facility] [address] [place] [address] 8 Performin g Lab: [place] [facility] [address] [place] [address] 8 [facility] COMPREHENS ISAURO METABOLIC PANEL SODIUM [MOLES/VOLU ME] IN SERUM OR PLASMA 144 meq/L 136 - 145 11/20 Specimen Type: PLASMA No comment entered. Ordering Provider: JUAN JOSE HANLEY Report Released Date/Time : November 20, 2024 12:08 PM Reporting Lab: [place] [facility] [address] [place] [address] 8 Performin g Lab: [place] [facility] [address] [place] [address] 8 [facility] COMPREHENS ISAURO METABOLIC PANEL POTASSIUM [MOLES/VOLU ME] IN SERUM OR PLASMA 5.1 meq/L 3.5 - 5 11/20 H Specimen Type: PLASMA No comment entered. Ordering Provider: JUAN JOSE HANLEY Report Released Date/Time : November 20, 2024 12:08 PM Reporting Lab: [place] [facility] [address] [place] [address] 8 Performin g Lab: [place] [facility] [address] [place] [address] 8 [facility] COMPREHENS ISAURO METABOLIC PANEL CHLORIDE [MOLES/VOLU ME] IN SERUM OR PLASMA 109 meq/L 98 - 107 11/20 H Specimen Type: PLASMA No comment entered. Ordering Provider: JUAN JOSE HANLEY Report Released Date/Time : November 20, 2024 12:08 PM Reporting Lab: [place] [facility] [address] [place] [address] 8 Performin g Lab: [place] [facility] [address] [place] [address] 8 [facility] COMPREHENS ISAURO METABOLIC PANEL CARBON DIOXIDE, TOTAL [MOLES/VOLU ME] IN SERUM OR PLASMA 27 meq/L 22 - 31 11/20 Specimen Type: PLASMA No comment entered. Ordering Provider: JUAN JOSE HANLEY Report Released Date/Time : November 20, 2024 12:08 PM Reporting Lab: [place] [facility] [address] [place] [address] 8 Performin g Lab: [place] [facility] [address] [place] [address] 8 [facility] COMPREHENS ISAURO METABOLIC PANEL CALCIUM [MASS/VOLUM E] IN SERUM OR PLASMA 9.2 mg/dL 8.4 - 10.4 11/20 Specimen Type: PLASMA No comment entered. Ordering Provider: JUAN JOSE HANLEY Report Released Date/Time : November 20, 2024 12:08 PM Reporting Lab: [place] [facility] [address] [place] [address] 8 Performin g Lab: [place] [facility] [address] [place] [address] 8 [facility] COMPREHENS ISAURO METABOLIC PANEL PROTEIN [MASS/VOLUM E] IN SERUM OR PLASMA 6.1 g/dL 6 - 8.6 11/20 Specimen Type: PLASMA No comment entered. Ordering Provider: JUAN JOSE HANLEY Report Released Date/Time : November 20, 2024 12:08 PM Reporting Lab: [place] [facility] [address] [place] [address] 8 Performin g Lab: [place] [facility] [address] [place] [address] 8 [facility] COMPREHENS ISAURO METABOLIC PANEL ALBUMIN [MASS/VOLUM E] IN SERUM OR PLASMA 3.8 g/dL 3.4 - 5 11/20 Specimen Type: PLASMA No comment entered. Ordering Provider: JUAN JOSE HANLEY Report Released Date/Time : November 20, 2024 12:08 PM Reporting Lab: [place] [facility] [address] [place] [address] 8 Performin g Lab: [place] [facility] [address] [place] [address] 8 [facility] COMPREHENS ISAURO METABOLIC PANEL BILIRUBIN.T OTAL [MASS/VOLUM E] IN SERUM OR PLASMA 0.4 mg/dL 0.2 - 1.2 11/20 Specimen Type: PLASMA No comment entered. Ordering Provider: JUAN JOSE HANLEY Report Released Date/Time : November 20, 2024 12:08 PM Reporting Lab: [place] [facility] [address] [place] [address] 8 Performin g Lab: [place] [facility] [address] [place] [address] 8 [facility] COMPREHENS ISAURO METABOLIC PANEL ALKALINE PHOSPHATASE [ENZYMATIC ACTIVITY/VO LUME] IN SERUM OR PLASMA 71 U/L 40 - 150 11/20 Specimen Type: PLASMA No comment entered. Ordering Provider: JUAN JOSE HANLEY Report Released Date/Time : November 20, 2024 12:08 PM Reporting Lab: [place] [facility] [address] [place] [address] 8 Performin g Lab: [place] [facility] [address] [place] [address] 8 [facility] COMPREHENS ISAURO METABOLIC PANEL ASPARTATE AMINOTRANSF ERASE [ENZYMATIC ACTIVITY/VO LUME] IN SERUM OR PLASMA 18 U/L 5 - 34 11/20 Specimen Type: PLASMA No comment entered. Ordering Provider: JUAN JOSE HANLEY Report Released Date/Time : November 20, 2024 12:08 PM Reporting Lab: [place] [facility] [address] [place] [address] 8 Performin g Lab: [place] [facility] [address] [place] [address] 8 [facility] COMPREHENS ISAURO METABOLIC PANEL ALANINE AMINOTRANSF ERASE [ENZYMATIC ACTIVITY/VO LUME] IN SERUM OR PLASMA 17 U/L 8 - 40 11/20 Specimen Type: PLASMA No comment entered. Ordering Provider: JUAN JOSE HANLEY Report Released Date/Time : November 20, 2024 12:08 PM Reporting Lab: [place] [facility] [address] [place] [address] 8 Performin g Lab: [place] [facility] [address] [place] [address] 8 [facility] COMPREHENS ISAURO METABOLIC PANEL GLOMERULAR FILTRATION RATE/1.73 SQ M.PREDICTED [VOLUME RATE/AREA] IN SERUM, PLASMA OR BLOOD BY CREATININE- BASED FORMULA ([id number] 2020) 88 11/20 Specimen Type: PLASMA No comment entered. Ordering Provider: JUAN JOSE HANLEY Report Released Date/Time : November 20, 2024 12:08 PM Reporting Lab: [place] [facility] [address] [place] [address] 8 Performin g Lab: [place] [facility] [address] [place] [address] 8 [facility] D-DIMER HS (MA-STL-PB ) FIBRIN D-DIMER FEU [MASS/VOLUM E] IN PLATELET POOR PLASMA BY IMMUNOASSAY 963 <499 - 499 11/20 H Specimen Type: PLASMA No comment entered. Ordering Provider: JUAN JOSE HANLEY Report Released Date/Time : November 20, 2024 12:08 PM Reporting Lab: [place] [facility] [address] [place] [address] 8 Performin g Lab: [place] [facility] [address] [place] [address] 8 [facility] HGA1C HEMOGLOBIN A1C/HEMOGLO BIN.TOTAL IN BLOOD 5.6 4.0 - 6.0 11/20 Specimen Type: BLOOD No comment entered. Ordering Provider: JUAN JOSE HANLEY Report Released Date/Time : November 20, 2024 12:08 PM Reporting Lab: [place] [facility] [address] [place] [address] 8 Performin g Lab: [place] [facility] [address] [place] [address] 8 [facility] TSH (MA-PB) THYROTROPIN [UNITS/VOLU ME] IN SERUM OR PLASMA 0.779 u[IU]/mL 0.47 - 5 11/20 Specimen Type: SERUM No comment entered. Ordering Provider: JUAN JOSE HANLEY Report Released Date/Time : November 20, 2024 12:08 PM Reporting Lab: [place] [facility] [address] [place] [address] Performin g Lab: [place] [facility] [address] [place] [address] [facility] VITAMIN D, 25-HYDROXY 25-HYDROXYV ITAMIN D3 [MASS/VOLUM E] IN SERUM OR PLASMA 45.1 ng/mL 30 - 96 11/20 Specimen Type: SERUM No comment entered. Ordering Provider: JUAN JOSE HANLEY Report Released Date/Time : November 20, 2024 12:08 PM Reporting Lab: [place] [facility] [address] [place] [address] Performin g Lab: [place] [facility] [address] [place] [address] [facility] URIC ACID URATE [MASS/VOLUM E] IN SERUM OR PLASMA 7.1 mg/dL 3.5 - 7.2 10/26 Specimen Type: PLASMA No comment entered. Ordering Provider: JUAN JOSE HANLEY Report Released Date/Time : October 26, 2024 11:11 AM Reporting Lab: [place] [facility] [address] [place] [address] Performin g Lab: [place] [facility] [address] [place] [address] [facility] [place] [facility] Vital Signs Combined list of inpatient and outpatient Vital Signs from [employer] of Defense and [employer] Affairs, ranging from 12 months to all on record, depending upon the facility. Vital Sign Value Date Comments Source SYSTOLIC BLOOD PRESSURE 135 01/25/2025 10:05:00 [facility] [place] [facility] DIASTOLIC BLOOD PRESSURE 67 01/25/2025 10:05:00 [facility] PULSE OXIMETRY 92 % 01/25/2025 10:05:00 [facility] WEIGHT 176.6 01/25/2025 10:05:00 [facility] BMI 29 kg/m2 01/25/2025 10:05:00 [facility] PAIN 9 01/25/2025 10:05:00 [facility] TEMPERATURE 97.6 01/25/2025 10:05:00 [facility] PULSE 52 01/25/2025 10:05:00 [facility] RESPIRATION 18 01/25/2025 10:05:00 [facility] SYSTOLIC BLOOD PRESSURE 122 12/03/2024 11:32:00 [facility] DIASTOLIC BLOOD PRESSURE 68 12/03/2024 11:32:00 [facility] PULSE OXIMETRY 91 12/03/2024 11:32:00 [facility] WEIGHT 176.9 12/03/2024 11:32:00 [facility] BMI 29 kg/m2 12/03/2024 11:32:00 [facility] PAIN 9 12/03/2024 11:32:00 [facility] HEIGHT 66.0 12/03/2024 11:32:00 [facility] TEMPERATURE 97.4 12/03/2024 11:32:00 [facility] PULSE 50 12/03/2024 11:32:00 [facility] RESPIRATION 17 12/03/2024 11:32:00 [facility] SYSTOLIC BLOOD PRESSURE 105 11/20/2024 12:00:39 [facility] DIASTOLIC BLOOD PRESSURE 64 11/20/2024 12:00:39 [facility] PULSE OXIMETRY 95 11/20/2024 12:00:39 [facility] WEIGHT 177.5 11/20/2024 12:00:39 [facility] BMI 29 kg/m2 11/20/2024 12:00:39 [facility] PAIN 7 11/20/2024 12:00:39 [facility] PULSE 64 11/20/2024 12:00:39 [facility] RESPIRATION 22 11/20/2024 12:00:39 [facility] SYSTOLIC BLOOD PRESSURE 127 10/26/2024 11:01:05 [facility] DIASTOLIC BLOOD PRESSURE 64 10/26/2024 11:01:05 [facility] PULSE OXIMETRY 92 10/26/2024 11:01:05 [facility] WEIGHT 173 10/26/2024 11:01:05 [facility] BMI 28 kg/m2 10/26/2024 11:01:05 [facility] TEMPERATURE 98.4 10/26/2024 11:01:05 [facility] PULSE 78 10/26/2024 11:01:05 [facility] RESPIRATION 19 10/26/2024 11:01:05 [facility] SYSTOLIC BLOOD PRESSURE 123 07/24/2024 12:04:00 [facility] DIASTOLIC BLOOD PRESSURE 62 07/24/2024 12:04:00 [facility] PULSE OXIMETRY 90 07/24/2024 12:04:00 [facility] WEIGHT 181.3 07/24/2024 12:04:00 [facility] BMI 29 kg/m2 07/24/2024 12:04:00 [facility] PAIN 10 07/24/2024 12:04:00 [facility] TEMPERATURE 97.9 07/24/2024 12:04:00 [facility] PULSE 67 07/24/2024 12:04:00 [facility] RESPIRATION 17 07/24/2024 12:04:00 [facility] Encounters Combined list of: 1) Encounters from Department of Veterans Affairs facilities going backup to the last 18 months, not all VA inpatient encounters are included; 2) Encounters from the Department of [facility] facilities going backup to 280 months. Location Location Details Encounter Type Encounter Number Reason For Visit Attending Provider ADM Date DC Date Status Disposition Source [facility] Outpatient Encounter [id number] 08/12 [facility] Outpatient Encounter [id number] 08[facility]17 [facility] Outpatient Encounter [id number] 08/18 [facility] Outpatient Encounter [id number] 08/18 [facility] Outpatient Encounter [id number] 08/24 [facility] Outpatient Encounter [id number] [facility] OFFICE O/P EST LOW 20 MIN [id number] Diagnos is: ICD-10- CM M54.50 Low back pain, unspeci Morena Chambers [facility] Outpatient Encounter [id number] 09/01 [facility] Outpatient Encounter [id number] 09/01 [facility] Out[facility] Encounter [id number] [id number] 09/11 [facility] Outpatient Encounter [id number] [id number] 09/22 [facility] Outpatient Encounter [id number] [id number] 09/27 [facility] Outpatient Encounter [id number] [id number] 09/28 [facility] HC PRO PHONE CALL 5-10 MIN [id number] Diagnos is: ICD-10- CM R93.89 Abnorma l finding s on dx imaging of oth body structu res CINTHIA HOLLAND R 09/28 [facility] Outpatient Encounter [id number] [id number] 09/29 [facility] Outpatient Encounter [id number] [id number] 09/29 [facility] OFF/OP EST OCTOBER X REQ PHY/QHP [id number] Diagnos is: ICD-10- CM L02.214 [place] us abscess of groin CINTHIA HOLLAND R 09/29 [facility] Outpatient Encounter [id number] MARIELLA LION 10/02 [facility] Outpatient Encounter [id number] [id number] 10/02 [facility] Outpatient Encounter [id number] [id number] 10/03 [facility] [place] Outpatient Encounter [id number] [id number] 10/03 [facility] HC PRO PHONE CALL 5-10 MIN [id number] [id number] Diagnos is: ICD-10- CM Z71.89 Other specifi ed family counselor ing CINTHIA HOLLAND R 10/09 [facility] Outpatient Encounter [id number] [id number] CINTHIA HOLLAND R 10/11 [facility] Outpatient Encounter [id number] [id number] 10/12 [facility] Outpatient Encounter [id number] [id number] 11/29 [facility] OFF/OP EST OCTOBER X REQ PHY/QHP [id number] [id number] Diagnos is: ICD-10- CM H61.22 Impacte d cerumen , left ear UDAY UNDERWOOD A 12/04 [facility] FEE [id number] [id number] Diagnos is: ICD-10- CM H90.3 Sensori neural hearing loss, bilater al RED,ROBE RT P 12/07 [facility] HEARING AID EXAM BOTH EARS [id number] [id number] Diagnos is: ICD-10- CM H90.3 Sensori neural hearing loss, bilater al RED,ROBE RT P 12/07 [facility] Outpatient Encounter [id number] [id number] 12/14 [facility] Outpatient Encounter [id number] [id number] 12/14 [facility] Out[facility] Encounter [id number] [id number] 12/18 [facility] Outpatient Encounter [id number] [id number] 12/26 [facility] Outpatient Encounter [id number] [id number] 01/01 [facility] Outpatient Encounter [id number] [id number] 01/01 [place] [facility] Outpatient Encounter [id number] [id number] 01/02 [facility] [place] [facility] Outpatient Encounter [id number] [id number] 01/15 [place] [facility] FAC[facility] FEE [id number] Diagnos is: ICD-10- CM Z46.1 Encount er for fitting and adjustm ent of hearing aid REDMARIA LUISA TAM RT P 01/17 [facility] UNLISTED MISC PROSTHETIC SER [id number] [id number] Diagnos is: ICD-10- CM Z46.1 Encount er for fitting and adjustm ent of hearing aid MARIA LUISA RED RT P 01/17 [facility] [id number] [id number] 01/18 [facility] Outpatient Encounter [id number] [id number] 01/22 [facility] HC PRO PHONE CALL 5-10 MIN [id number] Diagnos is: ICD-10- CM I95.9 Hypoten tripp, unspeci fimargaret CINTHIA HOLLAND 01/23 [facility] [id number] 01/29 [facility]OP EST OCTOBER X REQ PHY/QHP [id number] Diagnos is: ICD-10- CM Z01.30 Encount er for exam of blood pressur e w/o abnorma l finding s CINTHIA HOLLAND R 01/30 [facility] Outpatient Encounter [id number] [id number] 01/30 [facility] Outpatient Encounter [id number] [id number] 02/13 [facility] [place] [facility] Outpatient Encounter [id number] [id number] 02/14 [place] [facility] Outpatient Encounter [id number] [id number] 02/15 [facility] OFFICE O/P EST MOD 30 MIN [id number] [id number] Diagnos is: ICD-10- CM M17.11 Unilate ral primary osteoar thritis , right knee Morena HANLEY 02/15 [facility] Outpatient Encounter [id number] [id number] 02/15 [facility] Outpatient Encounter [id number] [id number] 1 02/19 [facility] HC PRO PHONE CALL 5-10 MIN [id number] Diagnos is: ICD-10- CM I10 Essenti al (primar y) hyperte nsion CINTHIA HOLLAND R 02/23 [facility] Encounter [id number] [id number] 02/27 [facility] Outpatient Encounter [id number] [id number] 02/28 [facility] [place] [facility] Outpatient Encounter [id number] [id number] 02/28 [facility] En[facility] [id number] [id number] 03/05 [facility] HC PRO PHONE CALL 5-10 MIN [id number] Diagnos is: ICD-10- CM R93.89 Abnorma l finding s on dx imaging of oth body structu res CINTHIA HOLLAND R 03/20 [facility] En[facility] [id number] [id number] 03/29 [place] [facility] Outpatient Encounter [id number] [id number] 04/04 [facility] HC PRO PHONE CALL 5-10 MIN [id number] Diagnos is: ICD-10- CM R60.0 Localiz ed edema CINTHIA HOLLAND R 04/04 [facility] Outpatient Encounter [id number] [id number] MARIELLA LION FIORELLA L 04/05 [facility] Outpatient Encounter [id number] [id number] 04/23 [facility] En[facility] [id number] [id number] 04/23 [place] [facility] Outpatient Encounter [id number] [id number] 04/24 [facility] Outpatient Encounter [id number] [id number] 04/24 [facility] Outpatient Encounter [id number] [id number] 05/01 [facility] Outpatient Encounter [id number] [id number] 3 05/03 [facility] IMMUNIZATI ON ADMIN [id number] [id number] Diagnos is: ICD-10- CM Z23 Encount er for immuniz atRUFUS Carolina L 05/09 [facility] Outpatient Encounter [id number] [id number] 06/05 [facility] Outpatient Encounter [id number] [id number] 06/06 [facility] Outpatient Encounter [id number] [id number] 07/04 [facility] Outpatient Encounter [id number] [id number] 07/04 [facility] Outpatient Encounter [id number] [id number] 07/04 [facility] Outpatient Encounter [id number] [id number] 07/05 [facility] Outpatient Encounter [id number] [id number] 07/11 [facility] Outpatient Encounter [id number] [id number] UDAY UNDERWOOD 07/18 [facility] OFFICE O/P EST LOW 20 MIN [id number] Diagnos is: ICD-10- CM G89.29 Other chronic pain Morena HANLEY 07/24 [facility] Outpatient Encounter [id number] [id number] 07/24 [facility] Outpatient Encounter [id number] [id number] 07/26 [facility] Outpatient Encounter [id number] [id number] MARIELLA LION 07/30 [facility] Outpatient Encounter [id number] [id number] 08/29 [facility] Outpatient Encounter [id number] [id number] 09/17 [facility] Outpatient Encounter [id number] [id number] 09/20 [facility] Outpatient Encounter [id number] [id number] 09/21 [facility] Outpatient Encounter [id number] [id number] 09/25 [facility] Outpatient Encounter [id number] [id number] RIVERA MENDEZ 10/08 [facility] Outpatient Encounter [id number] [id number] 10/11 [facility] Outpatient Encounter [id number] [id number] 10/16 [facility] OFF/OP EST MAY X REQ PHY/QHP [id number] [id number] Diagnos is: ICD-10- CM M79.675 Pain in left toe(s) Hanna TURNER 10/26 [facility] OFFICE O/P EST LOW 20 MIN [id number] [id number] Diagnos is: ICD-10- CM M13.0 Polyart hritis, unspeci gracielaed Morena HANLEY 10/26 [facility] Encounter [id number] [id number] 11/09 [facility] Outpatient Encounter [id number] [id number] 11/15 [facility] Outpatient Encounter [id number] [id number] 11/15 [facility] OFF/OP EST MAY X REQ PHY/QHP [id number] [id number] OG MURPHY R 11/20 [facility] OFFICE O/P EST MOD 30 MIN [id number] [id number] Diagnos is: ICD-10- CM I25.10 Athscl heart disease of [place] coronar y artery w/o ang pctrs Morena HANLEY 11/20 [facility] En[facility] [id number] 11/20 [facility] Outpatient Encounter [id number] [id number] 11/21 [facility] Outpatient Encounter [id number] [id number] RADHA WILCOX 11/21 [facility] Encounter [id number] [id number] 1 11/21 [facility] Encounter [id number] [id number] 11/21 [facility] Outpatient Encounter [id number] [id number] MARIELLA LION L 11/22 [facility] Out[facility] Encounter [id number] [id number] 1 11/26 [facility] Outpatient Encounter [id number] [id number] HARSHAD ORTEGA 11/30 [facility] O/P EST LOW 20 MIN [id number] [id number] Diagnos is: ICD-10- CM I25.10 Athscl heart disease of [place] coronar y artery w/o ang pctrs Morena HANLEY 12/03 [facility] Outpatient Encounter [id number] [id number] 12/10 [facility] Outpatient Encounter [id number] [id number] 12/12 [facility] Outpatient Encounter [id number] [id number] 12/19 [facility] Outpatient Encounter [id number] [id number] 3 01/16 [facility] Outpatient Encounter [id number] [id number] 01/21 [facility] Outpatient Encounter [id number] [id number] 01/25 [facility] OFF/OP EST MAY X REQ PHY/QHP [id number] [id number] Diagnos is: ICD-10- CM N49.2 Inflamm atory disorde rs of scrotum GAITAN,AN SANTANA D 01/25 [facility] Outpatient Encounter [id number] [id number] 01/25 [facility] OFFICE O/P EST MOD 30 MIN [id number] [id number] Diagnos is: ICD-10- CM N49.2 Inflamm atory disorde rs of scrotum COLLEEN YOU G 01/[facility] Encounter [id number] [id number] 01/25 [facility] Outpatient Encounter [id number] [id number] MARIELLA LION 01/28 [facility] Outpatient Encounter [id number] [id number] 01/29 [facility] Outpatient Encounter [id number] [id number] IVAN AGUILAR 01/29 [facility] Outpatient Encounter [id number] [id number] 01/30 [facility] Outpatient Encounter [id number] [id number] 01/30 [facility] Outpatient Encounter [id number] [id number] 01/30 [facility] PH1 ASSMT&MGMT NQHP 5-10 [id number] [id number] Diagnos is: ICD-10- CM R19.7 Diarrhe a, unspeci CINTHIA Butler 01/30 [facility] Social History Combined list of available smoking, tobacco, and other social history from Department of Defense and Veterans Affairs facilities. Social History Type Response Date Comment Sourc e Tobacco smoking status NHIS VA-TOBACCO FORMER USER 02/16/2024 [facility] History of tobacco use IA-TOBACCO QUIT 1 5 YRS OR MORE 02/16/2024 [facility] History of tobacco use VA-TOBACCO FORMER USER 02/18/2023 [facility] History of tobacco use VA-TOBACCO FORMER USER 08/24/2022 [facility] History of tobacco use IA-TOBACCO FORMER USER 11/12/2021 [facility] History of tobacco use VA-TOBACCO FORMER USER 01/08/2021 [facility] History of tobacco use IA-TOBACCO QUIT 1 5 YRS OR MORE 11/06/2019 [facility] History of tobacco use VA-TOBACCO FORMER USER 06/09/2018 [facility] History of tobacco use FORMER TOBACCO US ER 7Y OR GREATER 11/30/2017 [facility] History of tobacco use FORMER TOBACCO US ER 7Y OR GREATER 12/21/2016 [facility] History of tobacco use QUIT TOBACCO >7 Y EARS AGO 04/30/2015 [facility] History of tobacco use QUIT TOBACCO >7 Y EARS AGO 12/07/2013 [facility] History of tobacco use QUIT TOBACCO >12 MO and <7 YRS AGO 08/22/2013 [facility] History of tobacco use LIFETIME NON-USER OF TOBACCO 08/30/2012 [facility] History of tobacco use QUIT TOBACCO >7 Y EARS AGO 10/12/2011 [place] History of tobacco use FORMER TOBACCO US E >1Y <7Y 08/12/2010 [facility] History of tobacco use FORMER TOBACCO US E >1Y <7Y 03/03/2010 [facility] History of tobacco use FORMER TOBACCO US E >1Y <7Y 02/05/2009 [facility] History of tobacco use CURRENT TOBACCO USER 08/28/2007 [facility] History of tobacco use CURRENT TOBACCO USER 07/27/2006 [facility] Plan of Care List of future care activities from [facility] facilities. Additional future care activities may be listed in the Assessment and Plan section. Date/Time Care Activity Care Activity Detail Facili ty 02/11/2025 AMBULATORY - MEDICINE AMBULATORY - MEDICI RL [facility] Advance Directives List of completed, amended, or rescinded Advance Directives on record at Department [facility] Affairs facilities. An actual copy of the Directive is not included. Date Advance Directive Provider Source 10/19/2011 ADVANCE DIRECTIVE DISCUSSION OG BOYER [facility] 07/27/2006 ADVANCE DIRECTIVE SWAPNA [facility]
--- NOTE | 2025-02-06 09:04 | W.ED.SKABFB ---
HPI - Skin/Abscess/Foreign Bdy General: Chief complaint: Skin/Abscess/Foreign Body Stated complaint: pain in groin area Time Seen by Provider: 02/06/25 08:58 Source: patient Mode of arrival: ambulatory Limitations: no limitations History of Present Illness: 74-year-old male who had an abscess to his scrotum left scrotum that was drained 10 days ago. States has had some increased pain and has been out of his pain meds he denies any fever denies them or drainage or swelling. He does have follow-up with urology but has not seen them yet. Denies any vomiting or diarrhea Associated symptoms: Deny chills, fever(s), nausea or vomiting Related Data Home Medications ?Medication ?Instructions ?Recorded ?Confirmed atorvastatin 80 mg tablet 80 mg PO QPM 07/23/23 01/08/25 carvedilol 6.25 mg tablet 3.125 mg PO BID 07/23/23 01/08/25 cholecalciferol (vitamin D3) 25 25 mcg PO DAILY 07/23/23 01/08/25 mcg (1,000 unit) tablet cilostazol 100 mg tablet 100 mg PO BID 07/23/23 01/08/25 clopidogrel 75 mg tablet 75 mg PO DAILY 07/23/23 01/08/25 docusate sodium 100 mg capsule 100 mg PO BID 07/23/23 01/08/25 (Colace) ferrous sulfate 325 mg (65 mg 162.5 mg PO QAM 07/23/23 01/08/25 iron) tablet lisinopril 20 mg tablet 30 mg PO DAILY 07/23/23 01/08/25 pantoprazole 40 mg tablet,delayed 40 mg PO QAM 07/23/23 01/08/25 release pregabalin 75 mg capsule (Lyrica) 75 mg PO BID 07/23/23 01/08/25 sennosides 8.6 mg tablet (senna) 8.6 mg PO DAILY 07/23/23 12/19/24 oseltamivir 75 mg capsule mg PO 12/19/24 01/08/25 baclofen 10 mg tablet 10 mg PO BID Muscle Spasm 01/08/25 01/08/25 Previous Rx's ?Medication ?Instructions ?Recorded diclofenac sodium 1 % topical gel 4 g topical QID #100 grams 04/23/24 hinged knee brace #1 ea 04/23/24 benzonatate 200 mg capsule 200 mg PO TID PRN cough #20 caps 07/28/24 albuterol sulfate 90 mcg/actuation 2 inh inhalation Q4H PRN shortness 11/21/24 aerosol inhaler of breath or wheezing #8.5 grams leflunomide 20 mg tablet 20 mg PO DAILY #90 tabs 01/02/25 prednisone 5 mg tablet 5 mg PO DAILY joint pain #90 tabs 01/02/25 amoxicillin 875 mg-potassium 1 tab PO BID #20 tabs 01/25/25 clavulanate 125 mg tablet hydrocodone 5 mg-acetaminophen 325 1 tab PO Q8H #10 tabs 01/25/25 mg tablet hydrocodone 5 mg-acetaminophen 325 1 tab PO Q6H PRN pain #14 tabs 02/06/25 mg tablet sulfamethoxazole 800 1 tab PO BID 10 days #20 tabs 02/06/25 mg-trimethoprim 160 mg tablet (Bactrim DS) Allergies Allergy/AdvReac Type Severity Reaction Status Date / Time No Known Allergies Allergy Verified 01/25/25 11:10 Review of Systems Const: Denies: fever(s), chills, body aches or change in appetite ENMT: Denies: throat pain or dental pain Card: Denies: chest pain Resp: Denies: dyspnea GI: Denies: abdominal pain, nausea, vomiting or diarrhea Musc: Denies: neck pain or back pain Skin/Breast: Denies: rash Neuro: Denies: headache(s) PFS ED PFSH: Medical History (Updated 02/06/25 @ 09:05 by Karon Coleman MD) Immunization counseling High risk medication use Polyarthralgia Anxiety Acute anxiety Anemia CAD (coronary artery disease) History of hypertension Hyperlipidemia Abdominal hernia Claudication PAD (peripheral artery disease) Stenosis of artery of left lower extremity Psychiatric care Fall at home Recurrent right knee instability Osteoarthritis of right knee Surgical History H/O gastric bypass x4 History of eye surgery History of neck surgery x2 History of shoulder surgery left History of cholecystectomy Previous back surgery x5 S/P hernia surgery Family History Other Anemia Cancer Hypertension Denies family history of Lupus (systemic lupus erythematosus) Rheumatoid arthritis Diabetes CAD (coronary artery disease) Migraines Chronic kidney disease (CKD) Stroke Social History Smoking and tobacco/nicotine status: former use of tobacco/nicotine Physical Exam Const: COMMON NORMALS: no acute distress, patient oriented x3 and healthy appearing HENMT: COMMON NORMALS: normocephalic and atraumatic HEAD & SCALP: normocephalic and atraumatic Eye: COMMON NORMALS: conjunctivae normal CONJUNCTIVA: Yes conjunctivae normal Neck/C-Spine: COMMON NORMALS: full ROM and supple Chest: COMMONS NORMALS: normal inspection of the chest Resp: COMMON NORMALS: normal respiratory effort Cardio: COMMON NORMALS: regular rate RATE: regular rate : OTHER: Some tenderness to left testicle no signs of abscess at this time Extremity: COMMON NORMALS: normal to inspection and full ROM Neuro: COMMON NORMALS: patient oriented x3, moves all extremities and no focal motor deficits Psych: COMMON NORMALS: mental status grossly normal, Normal thought process present and cooperative THOUGHT PROCESS: Normal thought process present Skin: COMMON NORMALS: no rashes or lesions noted and no wounds GENERAL SKIN EXAM: no rashes or lesions noted MDM - Skin/Abscess/Foreign Bdy Medicial Decision Making Patient presents here with scrotal abscess incision still open no signs of reaccumulation of the abscess or cellulitis no signs of Aparna's gangrene will prescribe Bactrim he has follow-up with urology. No radiology studies performed this visit Discharge Plan Discharge Patient Disposition: Home Clinical Impression: Abscess of scrotum Condition: Stable Prescriptions: New hydrocodone-acetaminophen 5-325 mg tablet 1 tab PO Q6H PRN (Reason: pain) Qty: 14 0RF sulfamethoxazole-trimethoprim [Bactrim DS] 800-160 mg tablet 1 tab PO BID 10 Days Qty: 20 0RF No Action diclofenac sodium 1 % gel 4 g topical QID Qty: 100 3RF Rx Instructions: apply to single knee, ankle, foot; for foot includes sole/toes/top of foot (DME) hinged knee brace See Rx Instructions .Route .MEDSUPPLY Qty: 1 0RF Rx Instructions: As directed oseltamivir 75 mg capsule PO leflunomide 20 mg tablet 20 mg PO DAILY Qty: 90 1RF prednisone 5 mg tablet 5 mg PO DAILY Qty: 90 1RF benzonatate 200 mg capsule 200 mg PO TID PRN (Reason: cough) Qty: 20 0RF amoxicillin-pot clavulanate 875-125 mg tablet 1 tab PO BID Qty: 20 0RF hydrocodone-acetaminophen 5-325 mg tablet 1 tab PO Q8H Qty: 10 0RF cilostazol 100 mg Tablet 100 mg PO BID atorvastatin 80 mg Tablet 80 mg PO QPM senna 8.6 mg Tablet 8.6 mg PO DAILY carvedilol 6.25 mg Tablet 3.125 mg PO BID Rx Instructions: must administer with a meal/food lisinopril 20 mg Tablet 30 mg PO DAILY clopidogrel 75 mg Tablet 75 mg PO DAILY pantoprazole 40 mg Tablet,Delayed Release (Dr/Ec) 40 mg PO QAM ferrous sulfate 325 mg (65 mg iron) Tablet 162.5 mg PO QAM Colace 100 mg Capsule 100 mg PO BID pregabalin [Lyrica] 75 mg capsule 75 mg PO BID cholecalciferol (vitamin D3) 25 mcg (1,000 unit) Tablet 25 mcg PO DAILY baclofen 10 mg tablet 10 mg PO BID albuterol sulfate 90 mcg/actuation HFA aerosol inhaler 2 inh inhalation Q4H PRN (Reason: shortness of breath or wheezing) Qty: 8.5 2RF Discharge Orders: Discharge ED (Routine); Ordered 02/06/25 Ordered By: Karon Coleman Referrals: Mary Sahu MD [Primary Care Provider, Family Practice] Discharge Diet: Advance as tolerated Discharge Activity: Resume usual activity Patient Instructions: Abscess (ED) Print Language: Bulgarian Coding Level of Care Code ED Meal Cooker for Obey Ochoa
[2025-02-06] MEDS: sulfamethoxazole-trimeth DS 160-800 mg Tablet 1 TAB PO (09:17)
[2025-02-06] MEDS: HYDROcodone-acetaminophen 5-325 mg Tablet 1 TAB PO (09:17)
--- OUTSIDE RECORDS SUMMARY | 2025-02-06 19:04 | XMS_ITS | Encounter Summary ---
Author Organization [facility] Address [address] [place] [address] Care Team Providers Care Automotive Assembler Name Role Phone Anitha Miller MD Primary Care Provider Unavailab le Encounter Details Date Type Department Care Team (Latest Contact Info) Description 09/17/2003 Outpatient Historical [facility] Cardiac Thoracic Vascular Surg [place] [address] [address] Jeison Johnson II, MD [address] [place] [phone] CORON ATHEROSCL [place] CORON VESSEL (Primary Dx) Social History Tobacco Use Types Packs/Day Years Used Date Smoking Tobacco: Never Assessed Sex and Gender Information Value Date Recorded Sex Assigned at Not on file 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
--- OUTSIDE RECORDS SUMMARY | 2025-02-06 19:04 | XMS_ITS | Encounter Summary ---
Author Organization [facility] Address [address] [place] [address] Care Team Providers Care Malt House Supervisor Name Role Phone Anitha Miller MD Primary Care Provider Unavailab le Encounter Details Date Type Department Care Team (Late st Contact Info) Description 01/01/2004 Emergency Emergency Department [address] 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
--- OUTSIDE RECORDS SUMMARY | 2025-02-06 19:04 | XMS_ITS | Clinical Summary ---
Author Organization [facility] Address [address] [facility] Attn: [place] [address] Care Team Providers Care Bellstaff Name Role Phone Anitha Miller MD Primary [...] Encounters Date Type Department Care Team Description 01/30/2025 External Device Data [facility] ABSTRACTION Provider, Abstract 01/29/2025 Telephone [facility] Urolog[address] [place] [address] Provider, Abstract Needs Appointment 01/29/2025 [facility] [place] [address] [place] [address] Provider, Abstract 01/09/2025 External Device Data STL [...] on file 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 Gender Identity Not on file Sexual Orientation Not on file Last Filed Vital Signs Vital Sign Reading Time Taken Comments Blood Pressure 143/75 10/23/2014 3:38 PM CDT 127 /64 Pulse 60 10/23/2014 3:38 PM CDT 60 Temperature 36.7 C (98 F) 08/01/2014 3:00 PM SMALL APPLIANCE 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 SUPERVISOR Respiratory Rate 16 08/01/2014 3:00 PM SMALL APPLIANCE ASSEMBLY SUPERVISOR Oxygen Saturation - - Inhaled Oxygen Concentration - - Weight 75.3 kg (166 lb) 10/23/2014 3:38 PM CDT Height 170.2 cm (5' 7 ) 10/23/2014 3:38 PM CDT Body Mass Index 26 10/23/2014 3:38 PM CDT Plan of Treatment Upcoming Encounters Date Type Department Care Team (Late st Contact Info) Description 02/11/2025 2:30 PM CDT Office Visit [address] [place] [phone] Gael Allen MD [address] [facility] [address] [place] [address] Health Maintenance Due Date Last Done Comments DTAP/TDAP/TD VACCINES (1 - Tdap) 11/15/1970 COLORECTAL SCREENING 11/15/1996 Colorectal Cancer Screening 11/15/1996 FIT-DNA Q 3 years 11/15/1996 FIT/FOBT Q 1 year 11/15/1996 Flex Sig/CT Colonography Q 5 years 11/15/1996 PNEUMOCOCCAL VACCINE 50+ YEARS (1 of 1 - PCV) 11/16/19 ZOSTER VACCINE (1 of 2) 11/15/2001 INFLUENZA VACCINE (#1) 2025 RSV VACCINE (60+ or ) (1 - 1-dose 75+ series) 11/15/2026 Medical Devices Implanted Type Area Plastics Fitter Device Identifier Shelf Expiration Date Model / Serial / Lot Plate Lcp Humerus 3hole 241.901 - [id number] Implanted:Qty: 1 on 07/26/2014 by Jeff Frank MD Plate [employer] 241.901 / [id number] / [address] 3.5x32mm 204.832 - [id number] Implanted:Qty: 1 on 07/26/2014 by Jeff Frank MD Screw [employer] 204.832 / [id number] / Screw [address] Loc Stdrv 3.5x32mm 212.112 - [id number] Implanted:Qty: 1 on 07/26/2014 by Jeff Frank MD Screw [employer] 212.112 / [id number] / Scre[address] Loc Stdrv 3.5x34mm 212.113 - [id number] Implanted:Qty: 1 on 07/26/2014 by Jeff Frank MD Screw [employer] 212.113 / [id number] / [address] Loc Stdrv 3.5x42mm 212.118 - [id number] Implanted:Qty: 2 on 07/26/2014 by Jeff Frank MD Screw [employer] 212.118 / [id number] / Screw [address] Loc Stdrv 3.5x48mm 212.120 - [id number] Implanted:Qty: 1 on 07/26/2014 by Jeff Frank MD Screw [employer] 212.120 / [id number] / Screw [address] Loc Stdrv 3.5x50mm 212.121 - [id number] Implanted:Qty: 2 on 07/26/2014 by Jeff Frank MD Screw [employer] 212.121 / [id number] / Screw [address] Loc Stdrv 3.5x55mm 212.123 - [id number] Implanted:Qty: 2 on 07/26/2014 by Jeff Frank MD Screw [employer] 212.123 / [id number] / Insurance [facility] [address] [place] [address] [facility] [employer] * Guarantor: [facility] [employer] Account Type Relation to Patient Date of Phone Billing Address Corporate Other DEFAULT ADDRESS [place] [id number] [facility] [employer] Care Teams [place] Relationship Specialty Start Date End Date Anitha Miller MD NO ADDRESS ON FILE PCP - General Central Supply Clerk 07/22/14 Mary Sahu [address] [place] [id number] Referring Physician 04/19/24
--- OUTSIDE RECORDS SUMMARY | 2025-02-06 19:04 | XMS_ITS | Encounter Summary ---
Author Organization [facility] Address [address] [place] [address] Care Team Providers Care Rug Inspector Name Role Phone Anitha Miller MD Primary Care Provider Unavailab le Encounter Details Date Type Department Care Team (Late st Contact Info) Description 12/16/[address] 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
--- OUTSIDE RECORDS SUMMARY | 2025-02-06 19:04 | XMS_ITS | Encounter Summary ---
Author Organization [facility] Address [address] Orozco: Epic [place] [address] Care Team Providers Care Guest Service Agent Name Role Phone Anitha Miller MD Primary Care Provider Unavailab le Encounter Details Date Type Department Care Team (Late st Contact Info) Description 08/12/2003 Inpatient [facility] [place] Amezquita MD [address] [place] [phone] SUBENDO FIRST [facility]ISODE C[facility] ([facility]) (Primary Dx) Social History Tobacco Use Types Packs/Day Years Used Date Smoking Tobacco: Never Assessed Sex and Gender Information Value Date Recorded Sex Assigned at Not on file 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
--- OUTSIDE RECORDS SUMMARY | 2025-02-06 19:05 | XMS_ITS | Clinical Summary ---
Author Organization 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 Gender Identity Not on file Sexual Orientation Not on file Last Filed Vital Signs Vital Sign Reading Time Taken Comments Blood Pressure 143/75 10/23/2014 3:38 PM CDT 127 /64 Pulse 60 10/23/2014 3:38 PM CDT 60 Temperature 36.7 C (98 F) 08/01/2014 3:00 PM MAINTENANCE REPRESENTATIVE Respiratory Rate 16 08/01/2014 3:00 PM MAINTENANCE REPRESENTATIVE Oxygen Saturation 94% 08/15/2014 11:12 AM MAINTENANCE REPRESENTATIVE Inhaled Oxygen Concentration - - Weight 75.3 [...] series) 11/15/2026 Medical Devices Implanted Type Area Water Pollution Specialist Device Identifier Shelf Expiration Date Model / Serial / Lot Plate Lcp Humerus 3hole 241.901 - [id number] Implanted:Qty: 1 on 07/26/2014 by Jeff Frank MD at [facility] Plate [employer] 241.901 / [id number] / Screw St 3.5x32mm 204.832 - [id number] Implanted:Qty: 1 on 07/26/2014 by Jeff Frank MD at [facility] Screw [employer] 204.832 / [id number] / Screw St Loc Stdrv 3.5x32mm 212.112 - [id number] Implanted:Qty: 1 on 07/26/2014 by Jeff Frank MD at [facility] Screw [employer] 212.112 / [id number] / Screw St Loc Stdrv 3.5x42mm 212.118 - [id number] Implanted:Qty: 2 on 07/26/2014 by Jeff Frank MD at [facility] Screw [employer] 212.118 / [id number] / Screw St Loc Stdrv 3.5x50mm 212.121 - [id number] Implanted:Qty: 2 on 07/26/2014 by Jeff Frank MD at [facility] Screw [employer] 212.121 / [id number] / Screw St Loc Stdrv 3.5x48mm 212.120 - [id number] Implanted:Qty: 1 on 07/26/2014 by Jeff Frank MD at [facility] Screw [employer] 212.120 / [id number] / Screw St Loc Stdrv 3.5x55mm 212.123 - [id number] Implanted:Qty: 2 on 07/26/2014 by Jeff Frank MD at [facility] Screw [employer] 212.123 / [id number] / Screw St Loc Stdrv 3.5x34mm 212.113 - [id number] Implanted:Qty: 1 on 07/26/2014 by Jeff Frank MD at [facility] Screw [employer] 212.113 / [id number] / Insurance MEDICARE PART A [place] B [place] MED[place] A [place] B [place] Advance Directives For more information, please contact: [phone] * Full Code (Latest Code Status on File) Date Activated Date Inactivated Comments 07/26/2014 1:49 PM 08/01/2014 9:34 PM * Full Code Date Activated Date Inactivated Comments 07/23/2014 5:59 PM 07/24/2014 9:51 PM Care Teams Route Sales Driver Relationship Specialty Start Date End Date Anitha Miller MD PCP - General Mint Machine Operator 07/22/14
--- OUTSIDE RECORDS SUMMARY | 2025-02-06 19:05 | XMS_ITS | Encounter Summary ---
Author Organization [facility] Address [address] [place] [address] Care Team Providers Care Promotions Assistant Sales Marketing Name Role Phone Anitha Miller MD Primary Care Provider Unavailab le Encounter Details Date Type Department Care Team (Late st Contact Info) Description 01/30/2025 External Device Data [place] ABSTRACTION Provider, Abstract NO ADDRESS ON FILE Social History Tobacco Use Types Packs/Day Years Used Date Smoking Tobacco: Former Cigarettes Q uit: 08/14/2007 Smokeless Tobacco: Never Alcohol Use Standard Drinks/Week Comments Yes 0 (1 standard drink = 0.6 oz pur e alcohol) Sex and Gender Information Value Date Recorded Sex Assigned at Not on file 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 Gender Identity Not on file Sexual Orientation Not on file documented as of this encounter Plan of Treatment Upcoming Encounters Date Type Department Care Team (Late st Contact Info) Description 02/11/2025 2:30 PM CDT Office Visit [facility] [address] [place] [address] Gael Allen MD [address] [place] [id number] documented as of this encounter Visit Diagnoses Not on filedocumented in this encounter Care Teams Promotions Assistant Sales Marketing Relationship Specialty Start Date End Date Anitha Miller MD NO ADDRESS ON FILE PCP - [employer] Refrigerator Preparer 07/22/14 Mary Sahu [address] [place] [id number] Referring Physician 04/19/24 documented as of this encounter
== END 2025-02-06 09:25 | disposition home or self-care (01) ==
PROVIDERS: Emergency Provider Emergency Medicine; PCP Family Medicine
DX: N49.2 Inflammatory disorders of scrotum (principal); Z87.891 Personal history of nicotine dependence; I25.10 Atherosclerotic heart disease of native coronary artery without angina pectoris
CPT/HCPCS: 99283; J9999

== ENCOUNTER 2025-02-11 13:01 | Emergency (ER) | payer OTHER, SELFPAY ==
--- OUTSIDE RECORDS SUMMARY | 2024-12-03 06:30 | XMS_ITS | Encounter Summary ---
Author Name [facility] [place] [place] [facility] [place] [place] Address [address] [place] [address] Care Team Providers Care Receptionist Name Role Phone MARY HANLEY Primary Care Provider Unavailabl e SAÚL SANTIAGO [...] PART A Apr 27, 1986 PART A [id number] GRISELARVIN ERT PATIENT MEDICARE (WNR) MEDICARE (M) PART B Apr 27, 1986 PART B [id number] ARVIN RECINOS ERT PATIENT MEDICARE (WNR) MEDICARE (M) PART B Apr 27, 1986 PART B [id number] RECINOSARVIN ERT PATIENT MEDICARE (WNR) MEDICARE (M) PART A Apr 27, 1986 PART A [id number] [phone] ARVIN RECINOS ERT PATIENT MEDICARE (WNR) MEDICARE (M) PART A Apr 27, 1986 PART A [id number] [phone] ARVIN RECINOS ERT PATIENT MEDICARE (WNR) MEDICARE (M) PART B Apr 27, 1986 PART B [id number] ARVIN RECINOS ERT PATIENT MEDICARE (WNR) MEDICARE (M) PART A Apr 27, 1986 PART A [id number] ARVIN RECINOS ERT PATIENT MEDICARE (WNR) MEDICARE (M) PART B Apr 27, 1986 PART B [id number] ARVIN RECINOS ERT PATIENT MEDICARE (WNR) MEDICARE (M) PART A Apr 27, 1986 PART A [id number] ARVIN RECINOS ERT PATIENT MEDICARE (WNR) MEDICARE (M) PART B Apr 27, 1986 PART B [id number] ARVIN RECINOS ERT PATIENT MEDICARE (WNR) MEDICARE (M) PART A Apr 27, 1986 PART A [id number] [phone] ARVIN RECINOS ERT PATIENT MEDICARE (WNR) MEDICARE (M) PART B Apr 27, 1986 PART B [id number] [phone] ARVIN RECINOS ERT PATIENT Selected Encounter This section includes the information on record at [place] for the Encounter. Date/Time Encounter Type Encounter Description Reason Provider Source Dec 03, 2024 11:30 AM OFFICE O/P EST LOW 20 MIN PRIMARY CARE/MEDICINE ICD-10-CM I25.10 Athscl heart disease of [place] coronary artery w/o ang pctMARY [place] Encounter Template Text not used by [place] Assessments - Encounter Diagnoses This section includes the primary and secondary diagnoses documented for the Encounter. Date/Time Primary/Secondary Diagnosis Diagnosis Name Provider Source Dec 03, 2024 11:55 AM PRIMARY Athscl heart disease of [place] coronary artery w/o ang pctMARY CaryS [facility] Dec 03, 2024 11:55 AM SECONDARY Disorder of arteries and arterioles, unspecified [facility] Dec 03, 2024 11:55 AM SECONDARY Low back pain, unspecified MARY HANLEY [facility] Dec 03, 2024 11:55 AM SECONDARY Unilateral primary osteoarthritis, right knee MARY HAN[facility] Dec 03, 2024 11:55 AM SECONDARY Unspecified injury of neck, subsequent encounter MARY HANLEY [facility] Plan of Treatment: Future Appointments (+ 6 months) and Future Tests (+/- 45 days) The Plan of Treatment section includes future care activities for the patient from all [place] [facility]. This section includes future appointments and future orders which are active, pending or scheduled. Future Appointments This section includes appointments that were scheduled to occur 6 months from the date of the Encounter, up to a maximum of 20 appointments. The data comes from all [place] treatment facilities. Appointment Date/Time Appointment Type Appointme nt Facility Name Dec 19, 2024 03:15 PM AMBULATORY - MED[facility]INE [facility] Jan 08, 2025 03:15 PM AMBULATORY - MEDICINE [facility] Jan 16, 2025 09:00 AM [facility]ORY - MEDICINE [facility] Jan 25, 2025 09:30 AM AMBULATORY - MEDICINE [facility] Jan 25, 2025 11:02 AM [facility]ORY - MEDICINE [facility] Jan 25, 2025 11:30 AM AMBULATORY - MEDICINE [facility] Feb 11, 2025 02:30 PM AMBULATORY - MEDICINE [facility] Feb 26, 2025 11:00 AM AMBULATORY - MEDICINE [facility] Active, Pending, and Scheduled Orders This section includes a listing of several types of active, pending, and scheduled orders, including clinic medications orders, diagnostic test orders, procedure orders and consult orders; where the start date of the order is 45 days before the date of the Encounter or 45 days after the date of theEncounter. The data comes from all [facility]. Test Date/Time Test Type Test Details Facility Name Nov 29, 2024 03:32 PM Consult Order COMMUNITY CARE-PODIATRY [id number] Cons [facility] Dec 25, 2024 12:33 PM Consult Order COMMUNITY CARE-IMAGING CT-AUTO [id number] Cons [facility] Lab Results: +/- 30 days of the encounter This section includes the Chemistry and Hematology Lab Results on record with [place] for the patient. Radiology Reports and Pathology Reports are provided separately, in subsequent sections. Lab Results This section contains the Chemistry/Hematology Results that were resulted 30 days before or 30 daysafter the date of the Encounter. Date/Time Source Result Type Result - Unit Interpretation Reference Range Specimen Type Comment Dec 03, 2024 11:50 AM [facility] DRUG SCREEN URINE-inhouse (PB) URINE Specimen Type: URINE No comment entered. Ordering Provider: MARY HANLEY Report Released Date/Time: Dec 03, 2024 11:50 AM Reporting Lab: [facility] [address] [place] [address] Performing Lab: [place] [facility] [address] [place] [address] METHADONE Negative Negative OPIATES (PB) Negative Negative COCAINE... Negative Negative THC(Marijuana... Positive Negative BENZODIAZEPINE (PB) Negative Negative AMPHETAMINE... Negative Negative CREATININE URINE/OTHERS 17.22 mg/dL OXYCODONE (WUBOH-MAK-NH) Negative Negati ve BUPRENORPHINE (STL-PB-MA) Negative ng/mL Negative ETHANOL URINE <10 mg/dL L 0-20 FENTANYL, URINE (PB) Negative ng/mL November 20, 2024 12:08 PM [facility] T[facility] ([facility]) SERUM Specimen Typ e: SERUM No comment entered. Ordering Provider: MARY HANLEY Report Released Date/Time: November 20, 2024 12:08 PM Reporting Lab: [facility] [address] [place] [address] Performing Lab: [facility] [facility] [address] [place] [address] TSH 0.779 u[IU]/mL 0.47-5 November 20, 2024 12:08 PM [facility] D-DIMER HS (MA-STL-PB) PLASMA Specimen Type: P LASMA No comment entered. Ordering Provider: MARY HANLEY Report Released Date/Time: November 20, 2024 12:08 PM Reporting Lab: [place] [facility] [address] [place] [address] Performing Lab: [place] [facility] [address] [place] [address] D-DIMER HS (MA-STL-PB) 963 H <499 November 20, 2024 12:08 PM [facility] BRAIN NATRIURETIC PEPTIDE PLASMA Specimen Type : PLASMA No comment entered. Ordering Provider: MARY HANLEY Report Released Date/Time: November 20, 2024 12:08 PM Reporting Lab: [place] [facility] [address] [place] [address] Performing Lab: [place] [facility] [address] [place] [address] BRAIN NATRIURETIC PEPTIDE 389 pg/mL H 0-10 0 November 20, 2024 12:08 PM [facility] HGA1C BLOOD Specimen Type: BLOOD No comment entered. Ordering Provider: MARY HANLEY Report Released Date/Time: November 20, 2024 12:08 PM Reporting Lab: [place] [facility] [address] [place] [address] Performing Lab: [place] [facility] [address] [place] [address] HGA1C 5.6 4.0-6.0 November 20, 2024 12:08 PM [facility] VITAMIN D, 25-HYDROXY SERUM Specimen Type: SE RUM No comment entered. Ordering Provider: MARY HANLEY Report Released Date/Time: November 20, 2024 12:08 PM Reporting Lab: [place] [facility] [address] [place] [address] Performing Lab: [place] [facility] [address] [place] [address] VITAMIN D, 25-HYDROXY 45.1 ng/mL 30-96 November 20, 2024 12:08 PM [facility] CHOLESTEROL PANEL (PB) PLASMA Specimen Type: P LASMA No comment entered. Ordering Provider: MARY HANLEY Report Released Date/Time: November 20, 2024 12:08 PM Reporting Lab: [place] [facility] [address] [place] [address] Performing Lab: [place] [facility] [address] [place] [address] CHOLESTEROL 166 mg/dL 0-200 TRIGLYCERIDE 93 mg/dL 0-150 CALCULATED LDL 72.4 mg/dL HDL(New) 75.0 mg/dL H >40 HDL % OF TOTAL CHOLESTEROL (PB) 45.2 >25 November 20, 2024 12:08 PM [facility] CBC BLOOD Specimen Type: BLOOD No comment entered. Ordering Provider: MARY HANLEY Report Released Date/Time: November 20, 2024 12:08 PM Reporting Lab: [place] [facility] [address] [place] [address] Performing Lab: [place] [facility] [address] [place] [address] WBC 5.2 10*3/uL 3.6-11.2 RBC 4.48 10*6/uL [...] GRANS, AUTO ABS 0.03 10*3/uL 0. 00-0.05 November 20, 2024 12:08 PM [facility] COMPREHENSIVE METABOLIC PANEL PLASMA Specimen Type: PLASMA No comment entered. Ordering Provider: MARY HANLEY Report Released Date/Time: November 20, 2024 12:08 PM Reporting Lab: [place] [facility] [address] [place] [address] Performing Lab: [place] [facility] [address] [place] [address] CREATININE 0.92 mg/dL 0.7-1.3 UREA NITROGEN 16 [...] 17 U/L 8-40 EGFR (CKD-EPI 2020) 88 Vital Signs: All taken on the encounter date This section contains inpatient and outpatient Vital Signs collected on the date of the Encounter. Date/Time Temperature Pulse Blood Pressure Respiratory Rate SP02 Pain Height Weight Body Mass Index Source Dec 03, 2024 11:32 AM 97.4 50 122/68 17 91 9 66.0 176.9 29 [facility] Social History: Smoking Status (Most current) and Tobacco Use (All prior to encounter date) This section includes the most current, and the historical, smoking and tobacco- related health factors from the [place] facility where the Encounter took place. Current Smoking Status This section includes the most current smoking, or tobacco-related health factor, from the [place] facility where the Encounter took place. Date/Time Current Smoking Status Comment [place] Feb 16, 2024 11:00 AM VA-TOBACCO FORMER USER [facility] Tobacco Use History This section includes a history of the smoking, or tobacco-related health factors, that were collected on or before the date of the Encounter. The data comes from the [place] facility where the Encounter took place. Date/Time Smoking Status/Tobacco Use Comment F acility Feb 16, 2024 11:00 AM VA-TOBACCO QUIT 15 YRS OR MORE [facility] Feb 18, 2023 10:00 AM VA-TOBACCO FORMER USER [facility] Feb 18, 2023 10:00 AM VA-TOBACCO QUIT 15 YRS OR MORE [facility] Apr 30, 2015 09:57 AM QUIT TOBACCO >7 YEARS AGO [facility] Aug 22, 2013 12:59 PM QUIT TOBACCO >12 MO & <7 YRS AGO [facility] Advance Directives: All historical and current Section Date Range: From patient's date of to the date document was created. This section includes ALL of a patient's completed or amended [place] Advance and Rescinded Directives. The entries below indicate that a directive exists for the patient, but an actual copy is not included with this document. The data comes from all [place] facilities. Date Advance Directives Provider Source Oct 19, 2011 ADVANCE DIRECTIVE DISCUSSION [facility] Jul 27, 2006 ADVANCE DIRECTIVE SWAPNA CRABTREE [facility] Radiology Reports: +/- 30 days of the [...] the Encounter. The data comes from all [place] treatment facilities. Date/Time Radiology Report Provider Source November 20, 2024 12:08 PM CHEST X-RAY, 2 VIE WS: GRISELERICA VANDANA [id number] -[id number] M Exm Date: NOVEMBER 20, 2024@12:08 Req Phys: MARY HANLEY Loc: [facility] PCP (Req'g Lo Img Loc: [facility] [place] Service: [place] [address] (Case [id number] COMPLETE) CHEST X-RAY, 2 VIEWS (RAD Detailed) CPT:42290 Reason for Study: dyspnea Clinical History: Report Status: Verified Date Reported: NOVEMBER 20, 2024 Date Verified: NOVEMBER 20, 2024 Policewoman E-Sig: Report: Chest 2 views. Lungs hyperinflated [...] etiology uncertain. 3. CT scan performed at [facility] dated 08/01/2023 demonstrated the pulmonary nodule and the report recommended the 6-12 follow-up CT scan the chest. It is uncertain whether the follow-up CT was performed or not. If not performed recommend CT scan the chest to compare to prior CT scan Primary Interpreting Staff: KAREN MCCORMICK, RADIOLOGIST (Policewoman, no e-sig) /KAREN Qureshi [facility] November 20, 2024 11:18 AM FOOT,LEFT 3 VIEWS OR MORE: ERICA RECINOS [id number] -1950 M Exm Date: NOVEMBER 20, 2024@11:18 Req Phys: MARY HANLEY Pat Loc: [facility] LINDA (Req'g Lo Img Loc: [facility] [place] Service: [place] [address] (Case [id number] COMPLETE) FOOT,LEFT 3 VIEWS OR MORE (RAD Detailed) CPT:46493 Proc Modifiers : LEFT Reason for Study: pain to toes/foot Clinical History: Report Status: Verified Date Reported: NOVEMBER 20, 2024 Date Verified: NOVEMBER 20, 2024 Policewoman E-Sig: Report: Left foot 3 views. No [...] swelling Primary Interpreting Staff: KAREN MCCORMICK RADIOLOGIST (Policewoman, no e-sig) /KAREN Qureshi [facility] Encounter Notes: All associated encounter notes This section contains the clinical notes associated to the Encounter. Date/Time Encounter Note(s) Provider Source Feb 06, 2025 02:01 PM ADDENDUM: LOCAL TITLE: Addendum STANDARD TITLE: ADDENDUM DATE OF NOTE: FEB 06, 2025@14:01:05 ENTRY DATE: FEB 06, 2025@14:01:06 AUTHOR: MARY HANLEY EXP COSIGNER: URGENCY: STATUS: COMPLETED Patient had an abnormal myocardial perfusion scan in December performed by Dr. Rodríguez I need to clarify is he actually being followed by cardiology or do we need to place an actual referral to cardiology? /es/ Mary Hanley MD [facility] Signed: 02/06/2025 14:01 Receipt Acknowledged By: 02/07/2025 15:11 /robby/ Diana Garcia RN,BSN [facility], ANNA --- Original Document --- 12/03/24 PRIMARY CARE CLINIC PROGRESS NOTE PB: CC: ER follow-up HPI: He had recent [...] scheduled January 03. He has seen the home restoration service cleaner who is going to see back in December after the knee replacement for further treatment regarding his inflammatory arthritis. He continues to have significant pain in that left knee. [facility] Orthopedist-Dr. Andrews Rheumatology Dr. 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 STATIONS/DEPLOYMENTS: [facility] MAJOR ACCIDENTS OR INJURIES WHILE ON ACTIVE DUTY: no MST: no SURGICAL HX: Lumbar x5 Cervical x2 Ventral hernia CABG quad cholecystectomy Left leg stents x2 Bilateral cataracts Left shoulder (s/p CVA) PROBLEM LIST: 1) Dysphagia (SNOMED CT 40565636) 2) Iron deficiency anemia (SNOMED CT 87008053) 3) Chronic back pain (SNOMED CT 438437008) 4) Neck injury (SNOMED CT 96471723) 5) CAD - Coronary Artery Disease ([facility] 59758354) 6) HTN - Hypertension ([facility] 42932558) 7) Hyperlipidemia ([facility] 73443847) 8) Hernia 9) Claudication 10) Peripheral arterial [...] every 6 hours as needed for pain; PATRICIA palmer,. PAD with Claudication s/p stents in left [...] appointments. Medications Reconciled. See AVS given to [place]. Time spent 30 minutes. /MD [facility] Signed: 12/03/2024 11:55 MARY HANLEY Dec 03, 2024 11:49 AM ACCOUNTING OF DISC LOSURES NOTE: LOCAL TITLE: STATE PRESCRIPTION DRUG MONITORING PROGRAM STANDARD TITLE: ACCOUNTING OF DISCLOSURES NOTE DATE OF NOTE: DEC 03, 2024@11:49:46 ENTRY DATE: DEC 03, 2024@11:49:46 AUTHOR: MARY HANLEY EXP COSIGNER: URGENCY: STATUS: COMPLETED This PDMP query was submitted by Mary Hanley MD. The clinical justification for this PDMP query is to review controlled substances prescribed outside of the [facility], and any additional information that may become available, as an important component of standard clinical care, and in accordance with [facility] policy. Patient information was shared with the PDMP Appriss [place]. No prescription(s) for controlled substances outside the [facility] were found in the last 90 days. /MD [facility] Signed: 12/03/2024 11:50 MARY HANLEY Dec 03, 2024 11:40 AM PRIMARY CARE PROGR ESS NOTE: LOCAL TITLE: PRIMARY CARE CLINIC PROGRESS NOTE PB STANDARD TITLE: PRIMARY CARE PROGRESS NOTE DATE OF NOTE: DEC 03, 2024@11:40 ENTRY DATE: DEC 03, 2024@11:41:06 AUTHOR: MARY HANLEY EXP COSIGNER: URGENCY: STATUS: COMPLETED PRIMARY CARE [...] scheduled January 03. He has seen the home restoration service cleaner who is going to see back in December after the knee replacement for further treatment regarding his inflammatory arthritis. He continues to have significant pain in that left knee. [facility] Orthopedist-Dr. Andrews Rheumatology Dr. 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 STATIONS/DEPLOYMENTS: [employer] [facility] MAJOR ACCIDENTS OR INJURIES WHILE ON ACTIVE DUTY: no MST: no SURGICAL HX: Lumbar x5 Cervical x2 Ventral hernia CABG quad cholecystectomy Left leg stents x2 Bilateral cataracts Left shoulder (s/p CVA) PROBLEM LIST: 1) Dysphagia (SNOMED CT 59219775) 2) Iron deficiency anemia (SNOMED CT 42260758) 3) Chronic back pain (SNOMED CT 544656576) 4) Neck injury (SNOMED CT 34018917) 5) CAD - Coronary Artery Disease ([facility] 81853902) 6) HTN - Hypertension ([facility] 48146411) 7) Hyperlipidemia ([facility] 72602620) 8) Hernia 9) Claudication 10) Peripheral arterial [...] 6 hours as needed for pain; UDS spencer,. PAD with Claudication s/p stents in left [...] . Time spent 30 minutes. /robby/ Mary Hanley MD [facility] Signed: 12/03/2024 11:55 02/06/2025 ADDENDUM STATUS: COMPLETED Patient had an abnormal myocardial perfusion scan in December performed by Dr. Rodríguez I need to clarify is he actually being followed by cardiology or do we need to place an actual referral to cardiology? /viry Hanley MD [facility] Signed: 02/06/2025 14:01 Receipt Acknowledged By: 02/07/2025 15:11 /viry Garcia RN,TAMI [facility] 02/07/2025 ADDENDUM STATUS: COMPLETED The has an active cardiology consult with a follow up scheduled for 06/2025 /viry Garcia RN,BSMary Anne [facility] Signed: 02/07/2025 15:12 MARY HANLEY [facility] Dec 03, 2024 11:24 AM PRIMARY CARE NURSI NG NOTE: LOCAL TITLE: PRIMARY CARE NURSING PROGRESS [...] patient. Allergies/ADRs (Tool #5) FACILITY ALLERGY/ADR -------- [facility] NO KNOWN ALLERGIES [facility] NO KNOWN ALLERGIES [facility] No Known Allergies Med. Reconciliation (Tool #1) INCLUDED IN THIS LIST: Alphabetical list of active outpatient prescriptions dispensed from this [place] (local) and dispensed from another [place] or [facility] facility (remote) as well as inpatient orders (local pending and active), local clinic medications, locally documented non-VA medications, and local prescriptions that have or been discontinued in the past 90 days. Non-VA Meds Last Documented On: Mar 25, 2023 NOTE The display of VA prescriptions dispensed from another [place] or [facility] facility (remote) is limited to active outpatient prescription entries matched to National Drug File at the originating site and may not include some items such as investigational drugs, compounds, etc. NOT INCLUDED IN THIS LIST: Medications self-entered by the patient into personal health records (i.e. [facility]) are NOT included in this list. Non-VA medications documented outside this [place], remote inpatient orders (regardless of status) and remote clinic medications are NOT included in this list. The patient and provider must always discuss medications the patient is taking, regardless of where the medication was dispensed or obtained. OUTPT ATORVASTATIN CALCIUM 80MG TAB (Status = Active) TAKE ONE TABLET BY MOUTH EVERY EVENING FOR HIGH CHOLESTEROL Rx# [id number] Last Released: 11/12/24 Qty/Days Supply: Rx Expiration Date: 02/28/25 Refills Remainin Indication: FOR HIGH CHOLESTEROL OUTPT BACLOFEN 10MG TAB (Status = Active/Suspended) TAKE ONE TABLET BY MOUTH THREE TIMES A DAY NEEDED FOR MUSCLE SPASM Rx# [id number] Last Released: 11/23/24 Qty/Days Supply: 270/ Rx Expiration Date: 03/06/25 Refills Remainin Indication: FOR MUSCLE SPASM OUTPT CARVEDILOL 6.25MG TAB (Status = Active) TAKE ONE-HALF TABLET BY MOUTH TWICE A DAY FOR HIGH BLOOD PRESSURE TAKE WITH FOOD. Rx# [id number] Last Released: 11/12/24 Qty/Days Supply: Rx Expiration Date: 04/25/25 Refills Remainin Indication: FOR HIGH BLOOD PRESSURE OUTPT CHOLECALCIF 25MCG (D3-1,000UNIT) TAB (Status = Active) TAKE ONE TABLET BY MOUTH ONCE A DAY FOR VITAMIN D DEFICIENCY Rx# [id number] Last Released: 09/12/24 Qty/Days Supply: 100 Rx Expiration Date: 03/13/25 Refills Remainin Indication: FOR VITAMIN D DEFICIENCY OUTPT CILOSTAZOL 100MG TAB (Status = Active) TAKE ONE-HALF TABLET BY MOUTH TWICE A DAY FOR INTERMITTENT CLAUDICATION TAKE 30 MINUTES BEFORE OR AT LEAST 2 HOURS AFTER FOOD. DO NOT TAKE WITH GRAPEFRUIT JUICE. Rx# [id number] Last Released: 10/19/24 Qty/Days Supply: Rx Expiration Date: 04/25/25 Refills Remainin Indication: FOR INTERMITTENT CLAUDICATION OUTPT CLOPIDOGREL BISULFATE 75MG TAB (Status = Active) TAKE ONE TABLET BY MOUTH ONCE A DAY FOR ACUTE CORONARY SYNDROME Rx# [id number] Last Released: 08/20/24 Qty/Days Supply: Rx Expiration Date: 03/13/25 Refills Remainin Indication: [...] DOSE WITH RULER ATTACHED INSIDE BOX) Rx# [id number] Last Released: 04/26/24 Qty/Days Supply: Rx Expiration Date: 04/24/25 Refills Remainin OUTPT FERROUS SULFATE 325MG TAB (Status = Active) TAKE ONE TABLET BY MOUTH ONCE A DAY FOR IRON SUPPLEMENTATION. Rx# [id number] Last Released: 10/22/24 Qty/Days Supply: 100 Rx Expiration Date: 08/21/25 Refills Remainin OUTPT LEFLUNOMIDE 20MG TAB (Status = Discontinued) TAKE ONE TABLET BY MOUTH ONCE A DAY TAKE AT SAME TIME EACH DAY. Rx# [id number] Last Released: 11/12/24 Qty/Days Supply: Rx Expiration Date: 10/10/25 Refills Remainin OUTPT LEFLUNOMIDE 20MG TAB (Status = Active) TAKE ONE TABLET BY MOUTH ONCE A DAY TAKE AT SAME TIME EACH DAY. Rx# [id number] Last Released: QtDays Supply: Rx Expiration Date: 11/29/25 Refills Remainin OUTPT LISINOPRIL 20MG TAB (Status = Active) TAKE ONE AND ONE-HALF TABLETS BY MOUTH ONCE A DAY FOR HIGH BLOOD PRESSURE Rx# [id number] Last Released: 11/12/24 Qty/Days Supply: Rx Expiration [...] CALL 911. IF USED, NOTIFY PROVIDER. Rx# [id number] Last Released: 07/31/24 Qty/Days Supply: Rx Expiration Date: 10/23/24 Refills Remainin Indication: FOR OPIOID OVERDOSE OUTPT PANTOPRAZOLE NA 40MG EC TAB (Status = Discontinued) TAKE ONE TABLET BY MOUTH EVERY MORNING BEFORE A MEAL FOR GASTROESOPHAGEAL REFLUX DISEASE TAKE 30 MINUTES BEFORE MEAL(S) Rx# [id number] Last Released: 10/09/24 Qty/Days Supply: Rx Expiration Date: 01/31/25 Refills Remainin Indication: FOR GASTROESOPHAGEAL REFLUX DISEASE OUTPT PANTOPRAZOLE NA 40MG EC TAB (Status = Active/Suspended) TAKE ONE TABLET BY MOUTH EVERY MORNING BEFORE A MEAL FOR GASTROESOPHAGEAL REFLUX DISEASE TAKE 30 MINUTES BEFORE MEAL(S) Rx# [id number] Last Released: Qt Supply: Rx Expiration Date: 10/16/25 Refills Remainin Indication: FOR GASTROESOPHAGEAL REFLUX DISEASE OUTPT PREDNISONE 10MG TAB (Status = Discontinued) TAKE TWO TABLETS BY MOUTH ONCE A DAY FOR 5 DAYS, THEN TAKE ONE TABLET EVERY MORNING FOR 5 DAYS, THEN TAKE ONE-HALF TABLET ONCE A DAY FOR SWELLING AND INFLAMMATIONS TAKE WITH FOOD OR MILK. Rx# [id number] Last Released: 09/21/24 Qty/Days Supply: Rx Expiration Date: 09/20/25 Refills Remainin Indication: FOR SWELLING AND INFLAMMATIONS OUTPT PREDNISONE 10MG TAB (Status = Active) TAKE ONE-HALF TABLET BY MOUTH ONCE A DAY FOR SWELLING AND INFLAMMATIONS TAKE WITH FOOD OR MILK. Rx# [id number] Last Released: 11/28/24 Qty/Days Supply: Rx Expiration Date: 09/20/25 Refills Remainin Indication: FOR SWELLING AND INFLAMMATIONS OUTPT PREGABALIN 150MG ORAL CAP (Status = Active/Suspended) TAKE ONE CAPSULE BY MOUTH TWICE A DAY FOR NERVE PAIN *MAY CAUSE DROWSINESS* Rx# [id number] Last Released: 11/22/24 Qty/Days Supply: Rx Expiration Date: 01/02/25 Refills Remainin Indication: FOR NERVE PAIN SUPPLIES PHARMACY TERMS AND POSSIBLE PATIENT ACTIONS INPT = [place] inpatient order IV = [place] intravenous medication OUTPT = [place] outpatient prescription PHARMACY POSSIBLE PATIENT TERMS EXPLANATION ACTIONS -------- ---- ACTIVE A prescription that can be If you have refills, filled at the local [facility] pharmacy. you may request a refill of this prescription from your [facility] pharmacy. CLINIC A medication you received during If you have questions a visit to a [facility] clinic or about this medication emergency department. contact your [facility] healthcare team. DISCONTINUED A prescription your provider has [facility] stopped. It is no longer healthcare team if you available to be sent to you or need more of this picked up at the [place] pharmacy medication. window. A prescription which is [...] the [facility]. Or, it may be an bvrx-wfm-ggqxaev (OTC), herbal, dietary supplements or sample medication. [...] An active prescription that is Contact your [place] not scheduled to be filled yet. pharmacy [...] Now let us serve you. At the [facility], we strive to provide you with exceptional [...] Not At All SPIRITUAL ASSESSMENT: Are there faith practices or spiritual concerns you want the oliver filter operator, your physician, and other health care team members to immediately know about? No Patient advised to call the clinic for any concerns, questions, or symptoms. Patient and/or caregiver verbalized understanding of plan of care. /robby/ MARYA HENDRICKS CBVIVIAN Signed: 12/03/2024 11:35 MARLINE GRAY GA FILIPPOOC
--- OUTSIDE RECORDS SUMMARY | 2025-02-06 07:35 | XMS_ITS | Encounter Summary ---
Author Name [facility] [place] [facility] [place] Organization [facility] [place] [place] [facility] [place] Address [address] [place] [address] Care Team Providers Care House Worker General Name Role Phone MARY SAHU Primary Care [...] PART B Apr 27, 1986 PART B [id number] [phone] ARVIN RECINOS ERT PATIENT MEDICARE (WNR) MEDICARE (M) PART A Apr 27, 1986 PART A [id number] [phone] GRISELARVIN ERT PATIENT MEDICARE (WNR) MEDICARE (M) PART A Apr 27, 1986 PART A [id number] ARVIN RECINOS ERT PATIENT MEDICARE (WNR) MEDICARE (M) PART B Apr 27, 1986 PART B [id number] RECINOSARVIN ERT PATIENT MEDICARE (WNR) MEDICARE (M) PART A Apr 27, 1986 PART A [id number] ARVIN RECINOS ERT PATIENT MEDICARE (WNR) MEDICARE (M) PART B Apr 27, 1986 PART B [id number] ARVIN RECINOS ERT PATIENT MEDICARE (WNR) MEDICARE (M) PART A Apr 27, 1986 PART A [id number] ARVIN RECINOS ERT PATIENT MEDICARE (WNR) MEDICARE (M) PART B Apr 27, 1986 PART B [id number] ARVIN RECINOS ERT PATIENT MEDICARE (WNR) MEDICARE (M) PART A Apr 27, 1986 PART A [id number] ARVIN RECINOS ERT PATIENT MEDICARE (WNR) MEDICARE (M) PART B Apr 27, 1986 PART B [id number] ARVIN RECINOS ERT PATIENT MEDICARE (WNR) MEDICARE (M) PART A Apr 27, 1986 PART A [id number] ARVIN RECINOS ERT PATIENT MEDICARE (WNR) MEDICARE (M) PART B Apr 27, 1986 PART B [id number] ARVIN RECINOS PATIENT Selected Encounter This section includes the information on record at [place] for the Encounter. Date/Time Encounter Type Encounter Description Reason Provider Source Feb 06, 2025 12:35 PM Outpatient Encounter COMMUNITY CARE CONSULT AYADSIENNA Ericka IHSai Encounter Template Text not used by [place] Plan of Treatment: Future Appointments (+ 6 months) and Future Tests (+/- 45 days) The Plan of Treatment section includes future care activities for the patient from all [place] treatmentfacilities. This section includes future appointments and future orders which are active, pending or scheduled. Future Appointments This section includes appointments that were scheduled to occur 6 months from the date of the Encounter, up to a maximum of 20 appointments. The data comes from all [place] treatment facilities. Appointment Date/Time Appointment Type Appointme nt Facility Name Feb 11, 2025 02:30 PM AMBULATORY - MEDICINE SARAH KAUFFMAN [facility] Feb 26, 2025 11:00 AM AMBULATORY - MEDICINE [facility] Active, Pending, and Scheduled Orders This section includes a listing of several types of active, pending, and scheduled orders, including clinic medications orders, diagnostic test orders, procedure orders and consult orders; where the start date of the order is 45 days before the date of the Encounter or 45 days after the date of theEncounter. The data comes from all [place] treatment facilities. Test Date/Time Test Type Test Details Facility Name Dec 25, 2024 12:33 PM Consult Order [facility]-AUTO [id number] Cons Broadcast Maintenance Engineer's Choice [facility] Jan 29, 2025 09:26 AM Consult Order [facility] PB [id number] Cons Broadcast Maintenance Engineer's Choice POPLAR BLUFF [facility] Jan 30, 2025 12:00 AM Laboratory - Chemistry Order C DIFF EPI PCR PNL STOOL FECES [facility] Jan 30, 2025 12:00 AM Laboratory - Microbiology Order C&S STOOL STOOL FECES [facility] Jan 30, 2025 12:00 AM Laboratory - Chemistry Order OVA & PARASITE, STOOL (PB) STOOL FECES [facility] Mar 14, 2025 12:00 AM Laboratory - Chemistry Order CBC BLOOD [facility] Mar 14, 2025 12:00 AM Laboratory - Chemistry Order COMPREHENSIVE METABOLIC PANEL GREEN LI/HEP BLD/PLAS PLASMA [facility] Mar 14, 2025 12:00 AM Laboratory - Chemistry Order [id number] BLOOD [facility] Mar 14, 2025 12:00 AM Laboratory - Chemistry Order CHOLESTEROL PANEL (PB) GREEN LI/HEP BLD/PLAS PLASMA [facility] Mar 14, 2025 12:00 AM Laboratory - Chemistry Order TSH (MA-PB) GOLD/RED SST SERUM [facility] Advance Directives: All historical and current Section Date Range: From patient's date of to the date document was created. This section includes ALL of a patient's completed or amended [place] Advance and Rescinded Directives. The entries below indicate that a directive exists for the patient, but an actual copy is not included with this document. The data comes from all [facility]. Date Advance Directives Provider Source Oct 19, 2011 ADVANCE DIRECTIVE DISCUSSION OG BOY[facility] Jul 27, 2006 ADVANCE DIRECTIVE SWAPNA CRABTREE [facility] Encounter Notes: All associated encounter notes This section contains the clinical notes associated to the Encounter. Date/Time Encounter Note(s) Provider Source Feb 06, 2025 12:35 PM NONVA NOTE: LOCAL TITLE: COMMUNITY CARE-WENDY SELF PRESENTING CARE COORD PLAN STANDARD TITLE: NONVA NOTE DATE OF NOTE: FEB 06, 2025@12:35 ENTRY DATE: FEB 06, 2025@12:38:46 AUTHOR: SIENNA LION EXP COSIGNER: URGENCY: STATUS: COMPLETED COMMUNITY CARE-WENDY SELF PRESENTING CARE COORD PLAN [id number] PB Has ADDENDA Emergency Notification Intake Date Presenting to the Facility: 02/06/2025 08:38 AM Method of Contact: Provider Notification ID: [id number] [facility] Referral #: Portal Generated Hospital: [facility] City: [place] State: [place] Chief complaint: pain in groin area Discharge Disposition: Home Date of discharge: Jan Patient presents here with scrotal abscess incision still open no signs of reaccumulation of the abscess or cellulitis no signs of Aparna's gangrene will prescribe Bactrim he has follow-up with urology. No radiology studies performed this visit Clinical Impression: bscess of scrotum Condition: Stable Prescriptions: New hydrocodone-acetaminophen 5-325 mg tablet 1 tab PO Q6H PRN (Reason: pain) Qty: 14 0RF sulfamethoxazole-trimethopr im [Bactrim DS] 800-160 mg tablet 1 tab PO BID 10 Days Qty: 20 0RF (ED Provider: Karon Coleman MD) /robby/ SIENNA GARRETT,RN Signed: 02/06/2025 12:44 Receipt Acknowledged By: 02/06/2025 14:14 /es/ Mary Sahu MD [facility] 02/08/2025 11:10 /es/ CORNELIUS NIEVES AMSA 02/06/2025 16:13 /es/ MARLINE GRAY LPN [facility] 02/06/2025 ADDENDUM STATUS: COMPLETED VistA Imaging Scanned Document - Addendum. [facility] SCANNED DOCUMENT SIGNATURE NOT REQUIRED Electronically Filed: 02/06/2025 by: JOSE DE JESUS Kauffman [facility] SIENNA LION [facility]
--- OUTSIDE RECORDS SUMMARY | 2025-02-11 04:20 | XMS_ITS | Encounter Summary ---
Author Name [facility] [place] Address [address] [place] [address] Care Team Providers Care Fleet Mechanic Name Role Phone MARY SAHU Primary Care [...] PART A Apr 27, 1985 PART A [id number] [phone] ARVIN RECINOS ERT PATIENT MEDICARE (WNR) MEDICARE (M) PART B Apr 27, 1986 PART B [id number] GRISELARVIN ERT PATIENT MEDICARE (WNR) MEDICARE (M) PART B Apr 27, 1986 PART B [id number] [phone] ARVIN RECINOS ERT PATIENT MEDICARE (WNR) MEDICARE (M) PART A Apr 27, 1986 PART A [id number] RECINOSARVIN ERT PATIENT MEDICARE (WNR) MEDICARE (M) PART A Apr 27, 1986 PART A [id number] ARVIN RECINOS ERT PATIENT MEDICARE (WNR) MEDICARE (M) PART B Apr 27, 1986 PART B [phone] ARVIN RECINOS ERT PATIENT MEDICARE (WNR) MEDICARE (M) PART A Apr 27, 1986 PART A [id number] ARVIN RECINOS ERT PATIENT MEDICARE (WNR) MEDICARE (M) PART B Apr 27, 1986 PART B [id number] [phone] ARVIN RECINOS ERT PATIENT MEDICARE (WNR) MEDICARE (M) PART A Apr 27, 1986 PART A [id number] ARVIN RECINOS ERT PATIENT MEDICARE (WNR) MEDICARE (M) PART B Apr 27, 1986 PART B [id number] [phone] ARVIN RECINOS ERT PATIENT MEDICARE (WNR) MEDICARE (M) PART A Apr 27, 1986 PART A [id number] [phone] ARVIN RECINOS ERT PATIENT MEDICARE (WNR) MEDICARE (M) PART B Apr 27, 1986 PART B [id number] [phone] ARVIN RECINOS ERT PATIENT Selected Encounter This section includes the information on record at [place] for the Encounter. Date/Time Encounter Type Encounter Description Reason Pro vider Source Feb 11, 2025 09:20 AM Outpatient Encounter TELEPHONE PRIMARY CARE [facility] Encounter Template Text not used by [place] Plan of Treatment: Future Appointments (+ 6 months) and Future Tests (+/- 45 days) The Plan of Treatment section includes future care activities for the patient from all [place] treatmentfacilities. This section includes future appointments and future orders which are active, pending or scheduled. Future Appointments This section includes appointments that were scheduled to occur 6 months from the date of the Encounter, up to a maximum of 20 appointments. The data comes from all [place] treatment facilities. Appointment Date/Time Appointment Type Appointme nt Facility Name Feb 26, 2025 11:00 AM AMBULATORY - MEDICINE [facility] Active, Pending, and Scheduled Orders This section includes a listing of several types of active, pending, and scheduled orders, including clinic medications orders, diagnostic test orders, procedure orders and consult orders; where the start date of the order is 45 days before the date of the Encounter or 45 days after the date of theEncounter. The data comes from all [place] treatment facilities. Test Date/Time Test Type Test Details Facility Name Jan 29, 2025 09:26 AM Consult Order [facility] PB [id number] Cons Beef Killer's Choice [facility] Jan 30, 2025 12:00 AM Laboratory - Chemistry Order OVA & PARASITE, STOOL (PB) STOOL FECES [facility] Jan 30, 2025 12:00 AM Laboratory - Microbiology Order C&S STOOL STOOL FECES [facility] Jan 30, 2025 12:00 AM Laboratory - Chemistry Order C DIFF EPI PCR PNL STOOL FECES [facility] Mar 14, 2025 12:00 AM Laboratory - Chemistry Order CBC BLOOD [facility] Mar 14, 2025 12:00 AM Laboratory - Chemistry Order COMPREHENSIVE METABOLIC PANEL GREEN LI/HEP BLD/PLAS PLASMA [facility] Mar 14, 2025 12:00 AM Laboratory - Chemistry Order [id number] BLOOD [facility] Mar 14, 2025 12:00 AM Laboratory - Chemistry Order CHOLESTEROL PANEL (PB) GREEN LI/HEP BLD/PLAS PLASMA [facility] Mar 14, 2025 12:00 AM Laboratory - Chemistry Order TSH (MA-PB) GOLD/RED SST SERUM [facility] Advance Directives: All historical and current Section Date Range: From patient's date of to the date document was created. This section includes ALL of a patient's completed or amended [place] Advance and Rescinded Directives. The entries below indicate that a directive exists for the patient, but an actual copy is not included with this document. The data comes from all [place] facilities. Date Advance Directives Provider Source Oct 19, 2011 ADVANCE DIRECTIVE DISCUSSION OG BOYER [facility] Jul 27, 2006 ADVANCE DIRECTIVE SWAPNA CRABTREE [facility] Encounter Notes: All associated encounter notes This section contains the clinical notes associated to the Encounter. Date/Time Encounter Note(s) Provider Source Feb 11, 2025 09:20 AM PRIMARY CARE MEDIC ATION MGT NOTE: LOCAL TITLE: MEDICATION RENEWAL/REFILL PB STANDARD TITLE: PRIMARY CARE MEDICATION MGT NOTE DATE OF NOTE: FEB 11, 2025@09:20 ENTRY DATE: FEB 11, 2025@09:20:36 AUTHOR: HIRAL GARCIA COSIGNER: URGENCY: STATUS: COMPLETED ERICA RECINOS has contacted the Primary Care [facility] and is requesting that the following prescription(s) be renewed. The patient reports that he/she is currently LOW on his/her supply of medication. He/she is requesting a new supply be mailed by Jan MEDICATION REQUESTED: CHOLECALCIFEROL (LOW DOSE VIT D) - (OTC) TAB 25MCG TAKE ONE TABLET BY MOUTH ONCE A DAY FOR VITAMIN D DEFICIENCY System shows that this medication was delivered on 02/02/25. The reports he did get a package, but that the Vitamin D Was not in it. Please reorder medication. Recall visit scheduled? Future visits: 02/11/25 2:30 pm [facility] 02/26/25 11:00 am [facility] PACT ECHO PCP [phone] ====== The following is informational only for those patients that are on long-term opiate therapy: Opioid Consent: Prog Note DT Title Author Last Jah DT 07/24/2024 CONSENT FOR LONG-TERM OPIOIDS CVIX,IMEDWEBUSER FOR PAIN No drugs in class: CN101 (OPIOID ANALGESICS) Last UDS: Collection DT Specimen Test Name Result Units Ref Range 12/03/2024 11:50 URINE CREATuF 17.22 mg/dL Benzodiazipines: No drugs in class: CN302 (BENZODIAZEPINE DERIVATIVE SEDATIVES/HYPNOTICS) /robby/ Hiral Garcia RN,BSN [facility] Signed: 02/11/2025 09:24 Receipt Acknowledged By: 02/11/2025 10:07 /es/ Mary Sahu MD [facility] 02/11/2025 09:34 /robby/ VIKAS GOMEZ CLINICAL ARNP [facility]
--- OUTSIDE RECORDS SUMMARY | 2025-02-11 08:08 | XMS_ITS | Continuity of Care Document ---
Author Name [facility] Organization [facility] Care Team Providers Care Contracts Administrator Name Role Phone [facility] Unavailable Unavailable Problems Combined list of problems from Department of Defense and Veterans Affairs facilities. It does not include entries that were removed or entered in error. Problem Status Onset Date Problem Type Date of Resolution Comments Source Exposure to potentially hazardous substance ([facility] 406843889539824) Active 024 Condition Sep 01, 2023 Entered By: JONNY JULIEN Comment: [facility] Documentation Initiative [facility] Neck pain, arthralgia, cervical spine Active 011 Condition Oct 12, 2011 Entered By: SHELBY LIM Comment: DISCECTOMY 2010 [facility] Vitamin D Deficiency Inactive 009 Condition 03/11/2017 [facility] Coronary Artery Disease Active 998 Condition Oct 12, 2011 Entered By: SHELBY LIM Comment: CABG X 4 [facility] Low Back Pain Active 984 Condition Oct 12, 2011 Entered By: SHELBY LIM Comment: LAMINECTOMY X 4 LAST TIME 2008 [facility] Atherosclerosis of coronary artery without angina pectoris (SNOMED CT 048636704100700) Active Condition Jul 28 7 Entered By: BERT CHU Comment: CABG; 4 vessel; 2006 Entered By: BERT CHU Comment: inf. SC and ischemia, EF 55% MPS 08/03 [facility] Back pain (SNOMED CT 909792149) Active Condition Jul 28, 2006 Entered By: BERT CHU Comment: L5 diskFeb 2006 Entered By: BERT CHU Comment: s/p surgery 1983, 1984, 2006 Entered By: BERT CHU Comment: LESI 2006 Entered By: BERT CHU Comment: tight spinal stenosis, NF stenosis L5-S1 MRI 11/30 [facility] Benign essential hypertension (SNOMED CT 5182436) Active Condition [facility] Blood in urine Active Condition [facility] CAD - Coronary Artery Disease (SCT 75525280) Active Condition Jan 262022 Entered By: PAYTON SAMPSON RD Comment: Hx. CABG. [place] [facility] Cannabis abuse Active Condition [facility] Cardiovascular stress test abnormal Active Condition Feb 06, 2025 Entered By: JUAN JOSE HANLEY Comment: 01/21/2025 abnormal myocardial perfusion with medium size reversible ischemia in the inferior lateral wall; Dr. Estevez [facility] Cervicalgia (SNOMED CT 26332024) Active Condition Jul 28, 2006 Entered By: BERT CHU Comment: s/p cervical fusion 1985 [facility] Chronic back pain (SNOMED CT 476330656) Active Condition [place] [facility] Claudication Active Condition [place] [facility] Cognitive Disorder NOS Active Condition [facility] Constipation Active Condition [place] [facility] Dysphagia (SNOMED CT 08296649) Active Condition [place] [facility] Gastroesophageal reflux disease Active Condition [facility] Gastroesophageal Reflux Disorder Active Condition [facility] Hearing loss * (ICD-9-CM 389.9) Active Condition [facility] Hernia Active Condition Feb 18 Entered By: PAYTON SAMPSON RD Comment: Surgery x2. [place] [facility] HTN - Hypertension (SCT 07925747) Active Condition [facility] Hydrocele Active Condition [facility] Hyperlipidemia Active Condition [facility] Hyperlipidemia (SCT 09438177) Active Condition [place] [facility] Insomnia, unspecified Active Condition [facility] Iron deficiency anemia (SNOMED CT 98062102) Active Condition [place] [facility] MITRAL VALVE DISORDER Active Condition [facility] Neck injury (SNOMED CT 90857853) Active Condition [place] [facility] Osteoarthritis of right knee joint Active Condition [place] [facility] PAD - Peripheral arterial disease (SNOMED CT 650794428) Active Condition Jul Entered By: BERT CHU Comment: s/p stent left leg 2019 Entered By: SAÚL SANTIAGO Comment: 08/16/2019 stent left popliteal artery intor mid femoral artery-drug eluting balloon angioplasty [facility] Paresthesia * (ICD-9-CM 782.0) Active [facility] Peripheral arterial occlusive disease Active Condition [place] [facility] Solitary nodule of lung Active Condition May 16, 2023 Entered By: JUAN JOSE HANLEY Comment: right base 1.7cmSep 2023 Entered By: JUAN JOSE HANLEY Comment: Stable bilobed perifissural or nodule unchanged from 04/2023 3 repeat 1 yearSep 2023 Entered By: JUAN JOSE HANLEY Comment: Stable 02/2024 repeat 1 year [place] [facility] TOBACCO USE CURRENT Active Condition [facility] ACUTE BRONCHITIS Inactive Condition 07/23/[address] [facility] Acute sinusitis (ICD-9-CM 461.9) Inactive Condition 03/11/[address] [facility] ACUTE URI NOS Inactive Condition 07/24/2010 [facility] Anemia * (ICD-9-CM 285.9) Inactive Condition 12/12/[address] [facility] Benign essential hypertension Inactive Condition 12/15/[address] [facility] CANCER SCREENING Inactive Condition 03/11/20172006 Entered By: BERT CHU Comment: colonoscopy 2000 (normal)Jul 28, 2006 Entered By: BERT CHU Comment: SILVER 10/31 [facility] Cerv Spondylos w Myelop Inactive Condition 12/15/2017 [facility] CHEST PAIN NOS Inactive [facility] D[facility]iness * (ICD-9-CM 780.4) Inactive Condition 03/11/[address] [facility] Dyspepsia * (ICD-9-CM 536.8) Inactive Condition 12/12/[address] [facility] HYPERCHOLESTEROLEMIA Inactive Condition 12/12/[address] [facility] Impacted cerumen * (ICD-9-CM 380.4) Inactive Condition 03/11/[address] [facility] Olecranon bursitis (ICD-9-CM 726.33) Inactive Condition 03/11/[address] [facility] Orthostatic Hypotension * (ICD-9-CM 458.0) Inactive Condition 03/11/2017 [facility] Osteoarthritis Inactive Condition 03/11/2017 Jul 28, 2006 Entered By: BERT CHU Comment: cervical spineFeb 2006 Entered By: BERT CHU Comment: lumbar spineFeb 2006 Entered By: BERT CHU Comment: left hip [facility] Pseudophakia Inactive Condition 12/15/2017 [facility] Diagnosis: ICD-10-CM R19.7 Diarrhea, unspecified Active Diagnosis [facility] Diagnosis: ICD-10-CM N49.2 Inflammatory disorders of scrotum Active Diagnosis [facility] Diagnosis: ICD-10-CM I25.10 Athscl heart disease of [place] coronary artery w/o ang pctrs Active Diagnosis [facility] Diagnosis: ICD-10-CM M13.0 Polyarthritis, unspecified Active Diagnosis [facility] Diagnosis: ICD-10-CM M79.675 Pain in left toe(s) Active Diagnosis [facility] Diagnosis: ICD-10-CM G89.29 Other chronic pain Active Diagnosis [facility] Diagnosis: ICD-10-CM Z23 Encounter for immunization Active Diagnosis [facility] Diagnosis: ICD-10-CM R60.0 Localized edema Active Diagnosis [facility] Diagnosis: ICD-10-CM R93.89 Abnormal findings on dx imaging of oth body structures Active Diagnosis [facility] Diagnosis: ICD-10-CM I10 Essential (primary) hypertension Active Diagnosis [facility] Diagnosis: ICD-10-CM M17.11 Unilateral primary osteoarthritis, right knee Active Diagnosis [facility] Diagnosis: ICD-10-CM Z01.30 Encounter for exam of blood pressure w/o abnormal findings Active Diagnosis [facility] Diagnosis: ICD-10-CM I95.9 Hypotension, unspecified Active Diagnosis [facility] Diagnosis: ICD-10-CM Z46.1 Encounter for fitting and adjustment of hearing aid Active Diagnosis [facility] Diagnosis: ICD-10-CM H90.3 Sensorineural hearing loss, bilateral Active Diagnosis [facility] Diagnosis: ICD-10-CM H61.22 Impacted cerumen, left ear Active Diagnosis [facility] Diagnosis: ICD-10-CM Z71.89 Other specified counseling Active Diagnosis [facility] Diagnosis: ICD-10-CM L02.214 Cutaneous abscess of groin Active Diagnosis [facility] Diagnosis: ICD-10-CM M54.50 Low back pain, unspecified Active Diagnosis [facility] Medications Combined list of outpatient medications [...] FOR HIGH CHOLESTE ROL ORAL ACTIVE 02/28/2025 [id number] 5 JUAN JOSE HANLEY [address] [place] [address] [facility] ATORVASTATI N CA 80MG TAB TAKE ONE TABLET BY MOUTH EVERY EVENING FOR HIGH CHOLESTE ROL ORAL DISCONT INUED 02/19/2024 [id number] 4 NOEMY SAMPSON [address] [place] [address] [facility] BACLOFEN 10MG TAB TAKE ONE TABLET BY MOUTH THREE TIMES A DAY NEEDED FOR MUSCLE SPASM ORAL ACTIVE 03/06/2025 [id number] 5 JUAN JOSE HANLEY [address] [place] [address] [facility] BACLOFEN 10MG TAB TAKE ONE TABLET BY MOUTH THREE TIMES A DAY NEEDED FOR MUSCLE SPASM ORAL DISCONT INUED 02/19/2024 [id number] NOEMY SAMPSON [address] [place] [address] [facility] CARVEDILOL 6.25MG TAB TAKE ONE-HALF TABLET BY MOUTH TWICE A DAY FOR HIGH BLOOD PRESSURE TAKE WITH FOOD. ORAL SUSPEND ED 04/25/2025 [id number] 5 JUAN JOSE HANLEY [address] [place] [address] [facility] CHOLECALCIF NATHALIE 25MCG (1,000UNIT) TAB TAKE ONE TABLET BY MOUTH ONCE A DAY FOR VITAMIN D DEFICIEN CY ORAL SUSPEND ED 02/12/2026 [id number] 5 JUAN JOSE HANLEY 2024 100 [facility] CHOLECALCIF NATHALIE 25MCG (1,000UNIT) TAB TAKE ONE TABLET BY MOUTH ONCE A DAY FOR VITAMIN D DEFICIEN CY ORAL DISCONT INUED 02/05/2026 [id number] 5 CARLOS HANLEYMY [address] [place] [address] [facility] CHOLECALCIF NATHALIE 25MCG (1,000UNIT) TAB TAKE ONE TABLET BY MOUTH ONCE A DAY FOR VITAMIN D DEFICIEN CY ORAL DISCONT INUED 03/13/2025 [id number] 5 CAROLS HANLEYMY [address] [place] [address] [place] [facility] CHOLECALCIF NATHALIE 25MCG (1,000UNIT) TAB TAKE ONE TABLET BY MOUTH ONCE A DAY FOR VITAMIN D DEFICIEN CY ORAL DISCONT INUED 02/19/2024 [id number] 4 NOEMY SAMPSON [address] [place] [address] [facility] CILOSTAZOL 100MG TAB TAKE ONE-HALF TABLET BY MOUTH TWICE A DAY FOR INTERMIT TENT CLAUDICA TION TAKE 30 MINUTES BEFORE OR AT LEAST 2 HOURS AFTER FOOD. DO NOT TAKE WITH GRAPEFRU IT JUICE. ORAL ACTIVE 04/25/2025 [id number] 5 CARLOS HANLEYMY [address] [place] [address] [facility] CILOSTAZOL 100MG TAB TAKE ONE-HALF TABLET BY MOUTH TWICE A DAY FOR INTERMIT TENT CLAUDICA TION TAKE 30 MINUTES BEFORE OR AT LEAST 2 HOURS AFTER FOOD. DO NOT TAKE WITH GRAPEFRU IT JUICE. ORAL DISCONT INUED 02/19/2024 [id number] 4 NOEMY SAMPSON [address] [place] [address] [place] [facility] CLOPIDOGREL BISULFATE 75MG TAB TAKE ONE TABLET BY MOUTH ONCE A DAY FOR ACUTE CORONARY SYNDROME ORAL SUSPEND ED 12/18/2025 [id number] 5 JUAN JOSE HANLEY [address] [place] [address] [facility] CLOPIDOGREL BISULFATE 75MG TAB TAKE ONE TABLET BY MOUTH ONCE A DAY FOR ACUTE CORONARY SYNDROME ORAL DISCONT INUED 03/13/2025 [id number] 5 JUAN JOSE HANLEY [address] [place] [address] [facility] CLOPIDOGREL BISULFATE 75MG TAB TAKE ONE TABLET BY MOUTH ONCE A DAY FOR ACUTE CORONARY SYNDROME ORAL DISCONT INUED 02/19/2024 [id number] 4 NOEMY SAMPSON 2022 90 [facility] DICLOFENAC NA 1% GEL,TOP APPLY 4 GM TO AFFECTED AREA(S) FOUR TIMES A DAY APPLY TO SINGLE KNEE, ANKLE, FOOT. DO NOT EXCEED MORE THAN 16 GRAMS DAILY TO ANY LOWER EXTREMIT Y JOINT. NOT MORE THAN 8 GRAMS DAILY TO ANY UPPER EXTREMIT Y JOINT. MAX 32GM/DAY OVER ALL JOINTS. (MEASURE DOSE WITH RULER ATTACHED INSIDE BOX) TOPICA L ACTIVE 04/24/2025 [id number] 4 AMBROSIO FANG TOYIN 2023 100 [place] [facility] FERROUS SO4 325MG TAB TAKE ONE TABLET BY MOUTH ONCE A DAY FOR IRON SUPPLEME NTATION. ORAL ACTIVE 08/21/2025 [id number] 5 JUAN JOSE HANLEY 2024 100 [facility] FERROUS SO4 325MG TAB TAKE ONE TABLET BY MOUTH ONCE A DAY FOR IRON SUPPLEME NTATION. ORAL DISCONT INUED 10/11/2024 [id number] 5 JUAN JOSE HANLEY 2023 100 [facility] LEFLUNOMIDE 20MG TAB TAKE ONE TABLET BY MOUTH ONCE A DAY TAKE AT SAME TIME EACH DAY. ORAL ACTIVE 01/03/2026 [id number] 5 HARPAL VIEYRA 2024 90 [place] [facility] LEFLUNOMIDE 20MG TAB TAKE ONE TABLET BY MOUTH ONCE A DAY TAKE AT SAME TIME EACH DAY. ORAL DISCONT INUED 11/29/2025 [id number] 5 HARPAL VIEYRA 2024 90 [place] [facility] LEFLUNOMIDE 20MG TAB TAKE ONE TABLET BY MOUTH ONCE A DAY TAKE AT SAME TIME EACH DAY. ORAL DISCONT INUED 10/10/2025 [id number] 5 HARPAL VIEYRA 2024 30 [place] [facility] LISINOPRIL 20MG TAB TAKE ONE AND ONE-HALF TABLETS BY MOUTH ONCE A DAY FOR HIGH BLOOD PRESSURE ORAL ACTIVE 04/25/2025 [id number] 5 [facility] 2023 135 [facility] LISINOPRIL 20MG TAB TAKE ONE AND ONE-HALF TABLETS BY MOUTH ONCE A DAY FOR HIGH BLOOD PRESSURE ORAL DISCONT INUED 02/19/2024 [id number] NOEMY SAMPSON 2022 135 [facility] NALOXONE HCL 4MG/SPRAY SOLN,SPRAY, NASAL USE 1 SPRAY (4MG) INTO ONE NOSTRIL ONLY ONE-TIME FOR OPIOID OVERDOSE DO NOT PRIME NASAL SPRAY. SPRAY ONE DOSE IN ONE NOSTRIL, GIVE ADDITION AL DOSE IF PATIENT DOES NOT START BREATHIN G WITHIN 2-3 MINUTES OR STOPS BREATHIN G AGAIN. CALL 911. IF USED, NOTIFY PROVIDER . NASAL 10/23/2024 [id number] 5 [facility] 2024 2 [facility] OXYCODONE HCL 5MG/ACETAMI NOPHEN 325MG TAB TAKE 1 TO 2 TABS BY MOUTH EVERY 6 HOURS NEEDED FOR CHRONIC PAIN - NOTE: DO NOT EXCEED 4000MG PER DAY ACETAMIN OPHEN (APAP) ORAL DISCONT INUED BY PROVIDE R 08/24/2024 [id number] 5 [facility] 2024 120 [facility] PANTOPRAZOL E NA 40MG TAB,EC TAKE ONE TABLET BY MOUTH EVERY MORNING BEFORE A MEAL FOR GASTROES OPHAGEAL REFLUX DISEASE TAKE 30 MINUTES BEFORE MEAL(S) ORAL ACTIVE 10/16/2025 [id number] 5 [facility] 2024 90 [facility] PANTOPRAZOL E NA 40MG TAB,EC TAKE ONE TABLET BY MOUTH EVERY MORNING BEFORE A MEAL FOR GASTROES OPHAGEAL REFLUX DISEASE TAKE 30 MINUTES BEFORE MEAL(S) ORAL DISCONT INUED 01/31/2025 [id number] 5 [facility] [address] [place] [address] [facility] PREDNISONE 10MG TAB TAKE ONE-HALF TABLET BY MOUTH ONCE A DAY FOR SWELLING AND INFLAMMA TIONS TAKE WITH FOOD OR MILK. ORAL DISCONT INUED 09/20/2025 [id number] 5 HARPAL VIEYRA 2024 45 [place] [facility] PREDNISONE 10MG TAB TAKE TWO TABLETS BY MOUTH ONCE A DAY FOR 5 DAYS, THEN TAKE ONE TABLET EVERY MORNING FOR 5 DAYS, THEN TAKE ONE-HALF TABLET ONCE A DAY FOR SWELLING AND INFLAMMA TIONS TAKE WITH FOOD OR MILK. ORAL DISCONT INUED 09/20/2025 [id number] 5 HARPAL VIEYRA 2024 90 [place] [facility] PREDNISONE 5MG TAB TAKE ONE TABLET BY MOUTH ONCE A DAY FOR JOINT PAIN. TAKE WITH FOOD OR MILK. ORAL ACTIVE 01/03/2026 [id number] 5 HARPAL VIEYRA 2024 90 [place] [facility] PREGABALIN 150MG CAP,ORAL TAKE ONE CAPSULE BY MOUTH TWICE A DAY FOR NERVE PAIN *MAY CAUSE DROWSINE SS* ORAL ACTIVE 08/01/2025 [id number] 5 JUAN JOSE HANLEY [address] [place] [address] [facility] PREGABALIN 150MG CAP,ORAL TAKE ONE CAPSULE BY MOUTH TWICE A DAY FOR NERVE PAIN *MAY CAUSE DROWSINE SS* ORAL DISCONT INUED 07/05/2024 [id number] 5 JUAN JOSE HANLEY [address] [place] [address] [facility] PREGABALIN 150MG CAP,ORAL TAKE ONE CAPSULE BY MOUTH TWICE A DAY FOR NERVE PAIN *MAY CAUSE DROWSINE SS* ORAL DISCONT INUED 01/26/2024 [id number] 4 JUAN JOSE HANLEY [address] [place] [address] [facility] PREGABALIN 150MG CAP,ORAL TAKE ONE CAPSULE BY MOUTH TWICE A DAY FOR NERVE PAIN *MAY CAUSE DROWSINE SS* ORAL 01/02/2025 [id number] 5 JUAN JOSE HANLEY [address] [place] [address] [facility]OC Immunizations Combined list of available immunizations from the Department of Defense and Veterans Affairs facilities. Immunization Series Date Given Administered By Site Reaction Lot Number CVX Code Drug Tree Expert Status Comments Source INFLUENZA, HIGH-DOSE, TRIVALENT, PF 2023 SHARI GRAY RIGHT DELTO ID [id number] 135 complet ed [facility] ZOSTER RECOMBINANT 2022 SHARI GRAY RIGHT DELTO ID [id number] 187 complet ed [facility] PNEUMOCOCCAL POLYSACCHARID E PPV23 1 2022 33 complet ed HISTORICA L INFORMATI ON - FROM OTHER REGISTRY, [facility] INFLUENZA VACCINE, QUADRIVALENT, ADJUVANTED 2021 [...] complet ed [employer] Lot R [id number] Exp: 20 Sep 2019 [facility] INFLUENZA, HIGH DOSE SEASONAL 2016 135 complet ed [facility] PNEUMOCOCCAL CONJUGATE PCV 13 2016 133 complet ed Match,lot [id number],ex p-09/2017 [facility] TDAP 2016 115 complet ed [employer],lot [id number],exp -12/29/2018 [facility] INFLUENZA, SEASONAL, INJECTABLE 2015 141 complet ed [facility] PNEUMOCOCCAL POLYSACCHARID E PPV23 2015 33 complet ed [facility] INFLUENZA, SEASONAL, INJECTABLE, PRESERVATIVE FREE 2014 140 complet ed [facility] TDAP 2014 115 complet ed [facility] INFLUENZA, UNSPECIFIED FORMULATION 2013 88 complet ed [facility] TETANUS/DIPTH ERIA/PERTUSSI S (TDAP) (HISTORICAL) 2012 NONE 115 complet ed [id number] exp 02/14/15 [facility] INFLUENZA, UNSPECIFIED FORMULATION 2011 88 complet ed [facility] INFLUENZA, UNSPECIFIED FORMULATION 2010 88 complet ed [facility] INFLUENZA, UNSPECIFIED FORMULATION 2010 88 complet ed [facility](ADULT) UNSPECIFIED FORMULATION 2009 139 complet ed [employer] Lot# [id number] Exp: 29 Aug 2011 [facility] NOVEL INFLUENZA-H1N 1-09, ALL FORMULATIONS 2009 128 complet ed [employer] [facility] INFLUENZA, UNSPECIFIED FORMULATION 2007 88 complet ed [facility] INFLUENZA, UNSPECIFIED FORMULATION 2006 88 complet ed [facility] PNEUMOCOCCAL, UNSPECIFIED FORMULATION 2006 109 complet ed HISTORICA L INFORMATI ON - FROM OTHER REGISTRY, [facility] N INFLUENZA, UNSPECIFIED FORMULATION 2006 88 complet ed [facility](ADULT) UNSPECIFIED FORMULATION 2000 139 complet ed [facility] PNEUMOCOCCAL POLYSACCHARID E PPV23 1998 33 complet [...] 2024 11:50 AM Reporting Lab: [facility] [facility] [address] [place] [address] Performin g Lab: [facility] [facility] [address] [place] [address] [facility] DRUG SCREEN URINE-inho use (PB) OPIATES [PRESENCE] IN URINE BY SCREEN METHOD Negative 12/03 Specimen Type: URINE No comment entered. Ordering Provider: JUAN JOSE HANLEY Report Released Date/Time : Dec 03, 2024 11:50 AM Reporting Lab: [facility] [address] [place] [address] Performin g Lab: [facility] [address] [place] [address] [facility] DRUG SCREEN URINE-inho use (PB) COCAINE [PRESENCE] IN URINE Negative 12/03 Specimen Type: URINE No comment entered. Ordering Provider: JUAN JOSE HANLEY Report Released Date/Time : Dec 03, 2024 11:50 AM Reporting Lab: [place] [facility] [address] [place] [address] Performin g Lab: [place] [facility] [address] [place] [address] [facility] DRUG SCREEN URINE-inho use (PB) TETRAHYDROC ANNABINOL [PRESENCE] IN URINE BY SCREEN METHOD Positive 12/03 Specimen Type: URINE No comment entered. Ordering Provider: JUAN JOSE HANLEY Report Released Date/Time : Dec 03, 2024 11:50 AM Reporting Lab: [place] [facility] [address] [place] [address] Performin g Lab: [place] [facility] [address] [place] [address] [facility] DRUG SCREEN URINE-inho use (PB) BENZODIAZEP YONI [PRESENCE] IN URINE BY SCREEN METHOD Negative 12/03 Specimen Type: URINE No comment entered. Ordering Provider: JUAN JOSE HANLEY Report Released Date/Time : Dec 03, 2024 11:50 AM Reporting Lab: [place] [facility] [address] [place] [address] Performin g Lab: [place] [facility] [address] [place] [address] [facility] DRUG SCREEN URINE-inho use (PB) AMPHETAMINE [PRESENCE] IN URINE BY SCREEN METHOD Negative 12/03 Specimen Type: URINE No comment entered. Ordering Provider: JUAN JOSE HANLEY Report Released Date/Time : Dec 03, 2024 11:50 AM Reporting Lab: [place] [facility] [address] [place] [address] Performin g Lab: [place] [facility] [address] [place] [address] [facility] DRUG SCREEN URINE-inho use (PB) CREATININE [MASS/VOLUM E] IN URINE 17.22 mg/dL 12/03 Specimen Type: URINE No comment entered. Ordering Provider: JUAN JOSE HANLEY Report Released Date/Time : Dec 03, 2024 11:50 AM Reporting Lab: [place] [facility] [address] [place] [address] Performin g Lab: [place] [facility] [address] [place] [address] [facility] DRUG SCREEN URINE-inho use (PB) OXYCODONE CUTOFF [MASS/VOLUM E] IN URINE FOR SCREEN METHOD Negative 12/03 Specimen Type: URINE No comment entered. Ordering Provider: JUAN JOSE HANLEY Report Released Date/Time : Dec 03, 2024 11:50 AM Reporting Lab: [place] [facility] [address] [place] [address] Performin g Lab: [place] [facility] [address] [place] [address] [place] [address] [facility] DRUG SCREEN URINE-inho use (PB) BUPRENORPHI NE [PRESENCE] IN URINE Negativen g/mL 12/03 Specimen Type: URINE No comment entered. Ordering Provider: JUAN JOSE HANLEY Report Released Date/Time : Dec 03, 2024 11:50 AM Reporting Lab: [place] [facility] [address] [place] [address] Performin g Lab: [place] [facility] [address] [place] [address] [facility] DRUG SCREEN URINE-inho use (PB) ETHANOL [MASS/VOLUM E] IN URINE <10mg/dL 0 - 20 12/03 L Specimen Type: URINE No comment entered. Ordering Provider: JUAN JOSE HANLEY Report Released Date/Time : Dec 03, 2024 11:50 AM Reporting Lab: [place] [facility] [address] [place] [address] Performin g Lab: [place] [facility] [address] [place] [address] [facility] DRUG SCREEN URINE-inho use (PB) FENTANYL [PRESENCE] IN URINE Negativen g/mL 12/03 Specimen Type: URINE No comment entered. Ordering Provider: JUAN JOSE HANLEY Report Released Date/Time : Dec 03, 2024 11:50 AM Reporting Lab: [place] [facility] [address] [place] [address] Performin g Lab: [place] [facility] [address] [place] [address] [facility] D-DIMER HS (MA-STL-PB ) FIBRIN D-DIMER FEU [MASS/VOLUM E] IN PLATELET POOR PLASMA BY IMMUNOASSAY [phone] 11/20 H Specimen Type: PLASMA No comment entered. Ordering Provider: JUAN JOSE HANLEY Report Released Date/Time : November 20, 2024 12:08 PM Reporting Lab: [place] [facility] [address] [place] [address] Performin g Lab: [place] [facility] [address] [place] [address] [facility] TSH (MA-PB) THYROTROPIN [UNITS/VOLU ME] IN SERUM OR PLASMA 0.779 u[IU]/mL 0.47 - 5 11/20 Specimen Type: SERUM No comment entered. Ordering Provider: JUAN JOSE HANLEY Report Released Date/Time : November 20, 2024 12:08 PM Reporting Lab: [place] [facility] [address] [place] [address] Performin g Lab: [place] [facility] [address] [place] [address] 8 [facility] HGA1C HEMOGLOBIN A1C/HEMOGLO BIN.TOTAL IN BLOOD 5.6 4.0 - 6.0 11/20 Specimen Type: BLOOD No comment entered. Ordering Provider: JUAN JOSE HANLEY Report Released Date/Time : November 20, 2024 12:08 PM Reporting Lab: [place] [facility] [address] [place] [address] Performin g Lab: [place] [facility] [address] [place] [address] [facility] BRAIN NATRIURETI C PEPTIDE NATRIURETIC PEPTIDE B [MASS/VOLUM E] IN SERUM OR PLASMA 389 pg/mL 0 - 100 11/20 H Specimen Type: PLASMA No comment entered. Ordering Provider: JUAN JOSE HANLEY Report Released Date/Time : November 20, 2024 12:08 PM Reporting Lab: [place] [facility] [address] [place] [address] Performin g Lab: [place] [facility] [address] [place] [address] [facility] CHOLESTERO L PANEL (PB) CHOLESTEROL [MASS/VOLUM E] IN SERUM OR PLASMA 166 mg/dL 0 - 200 11/20 Specimen Type: PLASMA No comment entered. Ordering Provider: JUAN JOSE HANLEY Report Released Date/Time : November 20, 2024 12:08 PM Reporting Lab: [place] [facility] [address] [place] [address] Performin g Lab: [place] [facility] [address] [place] [address] 8 [facility] CHOLESTERO L PANEL (PB) TRIGLYCERID E [MASS/VOLUM E] IN SERUM OR PLASMA 93 mg/dL 0 - 150 11/20 Specimen Type: PLASMA No comment entered. Ordering Provider: JUAN JOSE HANLEY Report Released Date/Time : November 20, 2024 12:08 PM Reporting Lab: [place] [facility] [address] [place] [address] Performin g Lab: [place] [facility] [address] [place] [address] 8 [facility] CHOLESTERO L PANEL (PB) CHOLESTEROL IN LDL [MASS/VOLUM E] IN SERUM OR PLASMA BY CALCULATION 72.4 mg/dL 11/20 Specimen Type: PLASMA No comment entered. Ordering Provider: JUAN JOSE HANLEY Report Released Date/Time : November 20, 2024 12:08 PM Reporting Lab: [place] [facility] [address] [place] [address] Performin g Lab: [place] [facility] [address] [place] [address] 8 [facility] CHOLESTERO L PANEL (PB) CHOLESTEROL IN HDL [MASS/VOLUM E] IN SERUM OR PLASMA 75.0 mg/dL 40 11/20 H Specimen Type: PLASMA No comment entered. Ordering Provider: JAUN JOSE HANLEY Report Released Date/Time : November 20, 2024 12:08 PM Reporting Lab: [place] [facility] [address] [place] [address] 8 Performin g Lab: [place] [facility] [address] [place] [address] 8 [facility] CHOLESTERO L PANEL (PB) CHOLESTEROL IN HDL/CHOLEST NATHALIE.TOTAL [MASS RATIO] IN SERUM OR PLASMA 45.2 25 11/20 Specimen Type: PLASMA No comment entered. Ordering Provider: JUAN JOSE HANLEY Report Released Date/Time : November 20, 2024 12:08 PM Reporting Lab: [place] [facility] [address] [place] [address] 8 Performin g Lab: [place] [facility] [address] [place] [address] 8 [facility] VITAMIN D, 25-HYDROXY 25-HYDROXYV ITAMIN D3 [MASS/VOLUM E] IN SERUM OR PLASMA 45.1 ng/mL 30 - 96 11/20 Specimen Type: SERUM No comment entered. Ordering Provider: JUAN JOSE HANLEY Report Released Date/Time : November 20, 2024 12:08 PM Reporting Lab: [place] [facility] [address] [place] [address] Performin g Lab: [place] [facility] [address] [place] [address] 8 [facility] CBC LEUKOCYTES [#/VOLUME] IN BLOOD BY AUTOMATED COUNT 5.2 10*3/uL 3.6 - 11.2 11/20 Specimen Type: BLOOD No comment entered. Ordering Provider: JUAN JOSE HANLEY Report Released Date/Time : November 20, 2024 12:08 PM Reporting Lab: [place] [facility] [address] [place] [address] Performin g Lab: [place] [facility] [address] [place] [address] 8 [facility] CBC ERYTHROCYTE S [#/VOLUME] IN BLOOD BY AUTOMATED COUNT 4.48 10*6/uL 4.10 - 5.70 11/20 Specimen Type: BLOOD No comment entered. Ordering Provider: JUAN JOSE HANLEY Report Released Date/Time : November 20, 2024 12:08 PM Reporting Lab: [place] [facility] [address] [place] [address] 8 Performin g Lab: [place] [facility] [address] [place] [address] 8 [facility] CBC HEMOGLOBIN [MASS/VOLUM E] IN BLOOD 13.3 g/dL 13.1 - 16.8 11/20 Specimen Type: BLOOD No comment entered. Ordering Provider: JUAN JOSE HANLEY Report Released Date/Time : November 20, 2024 12:08 PM Reporting Lab: [place] [facility] [address] [place] [address] Performin g Lab: [place] [facility] [address] [place] [id number] [facility] CBC HEMATOCRIT [VOLUME FRACTION] OF BLOOD 43.1 38.2 - 48.4 11/20 Specimen Type: BLOOD No comment entered. Ordering Provider: JUAN JOSE HANLEY Report Released Date/Time : November 20, 2024 12:08 PM Reporting Lab: [place] [facility] [address] [place] [address] Performin g Lab: [place] [facility] [address] [place] [phone] [facility] CBC MCV [ENTITIC VOLUME] BY AUTOMATED COUNT 96.2 fL 80.0 - 100.0 11/20 Specimen Type: BLOOD No comment entered. Ordering Provider: JUAN JOSE HANLEY Report Released Date/Time : November 20, 2024 12:08 PM Reporting Lab: [place] [facility] [address] [place] [address] Performin g Lab: [place] [facility] [address] [place] [address] [facility] CBC MCH [ENTITIC MASS] BY AUTOMATED COUNT 29.7 pg 27.0 - 34.0 11/20 Specimen Type: BLOOD No comment entered. Ordering Provider: JUAN JOSE HANLEY Report Released Date/Time : November 20, 2024 12:08 PM Reporting Lab: [place] [facility] [address] [place] [address] Performin g Lab: [place] [facility] [address] [place] [address] [facility] CBC MCHC [MASS/VOLUM E] BY AUTOMATED COUNT 30.9 g/dL 33.0 - 36.0 11/20 L Specimen Type: BLOOD No comment entered. Ordering Provider: JUAN JOSE HANLEY Report Released Date/Time : November 20, 2024 12:08 PM Reporting Lab: [place] [facility] [address] [place] [address] Performin g Lab: [place] [facility] [address] [place] [address] 8 [facility] CBC PLATELETS [#/VOLUME] IN BLOOD BY AUTOMATED COUNT 157 10*3/uL 150 - 400 11/20 Specimen Type: BLOOD No comment entered. Ordering Provider: JUAN JOSE HANLEY Report Released Date/Time : November 20, 2024 12:08 PM Reporting Lab: [place] [facility] [address] [place] [address] Performin g Lab: [place] [facility] [address] [place] [address] [facility] CBC PLATELET MEAN VOLUME [ENTITIC VOLUME] IN BLOOD BY AUTOMATED COUNT 10.9 fL 7.5 - 11.2 11/20 Specimen Type: BLOOD No comment entered. Ordering Provider: JUAN JOSE HANLEY Report Released Date/Time : November 20, 2024 12:08 PM Reporting Lab: [place] [facility] [address] [place] [address] Performin g Lab: [place] [facility] [address] [place] [address] 8 [facility] CBC ERYTHROCYTE DISTRIBUTIO N WIDTH [RATIO] BY AUTOMATED COUNT 15.6 11.8 - 15.1 11/20 H Specimen Type: BLOOD No comment entered. Ordering Provider: JUAN JOSE HANLEY Report Released Date/Time : November 20, 2024 12:08 PM Reporting Lab: [place] [facility] [address] [place] [address] Performin g Lab: [place] [facility] [address] [place] [address] 8 [facility] CBC LYMPHOCYTES /100 LEUKOCYTES IN BLOOD BY AUTOMATED COUNT 14.1 11/20 Specimen Type: BLOOD No comment entered. Ordering Provider: JUAN JOSE HANLEY Report Released Date/Time : November 20, 2024 12:08 PM Reporting Lab: [place] [facility] [address] [place] [address] Performin g Lab: [place] [facility] [address] [place] [address] [facility] CBC MONOCYTES/1 00 LEUKOCYTES IN BLOOD BY AUTOMATED COUNT 3.5 11/20 Specimen Type: BLOOD No comment entered. Ordering Provider: JUAN JOSE HANLEY Report Released Date/Time : November 20, 2024 12:08 PM Reporting Lab: [place] [facility] [address] [place] [address] 8 Performin g Lab: [place] [facility] [address] [place] [address] [facility] CBC NEUTROPHILS /100 LEUKOCYTES IN BLOOD BY AUTOMATED COUNT 80.4 11/20 Specimen Type: BLOOD No comment entered. Ordering Provider: JUAN JOSE HANLEY Report Released Date/Time : November 20, 2024 12:08 PM Reporting Lab: [place] [facility] [address] [place] [address] Performin g Lab: [place] [facility] [address] [place] [address] [facility] CBC EOSINOPHILS /100 LEUKOCYTES IN BLOOD BY AUTOMATED COUNT 0.6 11/20 Specimen Type: BLOOD No comment entered. Ordering Provider: JUAN JOSE HANLEY Report Released Date/Time : November 20, 2024 12:08 PM Reporting Lab: [place] [facility] [address] [place] [address] Performin g Lab: [place] [facility] [address] [place] [address] [facility] CBC BASOPHILS/1 00 LEUKOCYTES IN BLOOD BY AUTOMATED COUNT 0.8 11/20 Specimen Type: BLOOD No comment entered. Ordering Provider: JUAN JOSE HANLEY Report Released Date/Time : November 20, 2024 12:08 PM Reporting Lab: [place] [facility] [address] [place] [address] Performin g Lab: [place] [facility] [address] [place] [address] [facility] CBC LYMPHOCYTES [#/VOLUME] IN BLOOD BY AUTOMATED COUNT 0.73 10*3/uL 0.77 - 4.50 11/20 L Specimen Type: BLOOD No comment entered. Ordering Provider: JUAN JOSE HANLEY Report Released Date/Time : November 20, 2024 12:08 PM Reporting Lab: [place] [facility] [address] [place] [address] Performin g Lab: [place] [facility] [address] [place] [address] [facility] CBC MONOCYTES [#/VOLUME] IN BLOOD BY AUTOMATED COUNT 0.18 10*3/uL 0.19 - 0.8 11/20 L Specimen Type: BLOOD No comment entered. Ordering Provider: JUAN JOSE HANLEY Report Released Date/Time : November 20, 2024 12:08 PM Reporting Lab: [place] [facility] [address] [place] [address] Performin g Lab: [place] [facility] [address] [place] [address] [facility] CBC NEUTROPHILS [#/VOLUME] IN BLOOD BY AUTOMATED COUNT 4.18 10*3/uL 2.10 - 8.00 11/20 Specimen Type: BLOOD No comment entered. Ordering Provider: JUAN JOSE HANLEY Report Released Date/Time : November 20, 2024 12:08 PM Reporting Lab: [place] [facility] [address] [place] [address] 8 Performin g Lab: [place] [facility] [address] [place] [address] 8 [facility] CBC EOSINOPHILS [#/VOLUME] IN BLOOD BY AUTOMATED COUNT 0.03 10*3/uL 0.00 - 0.60 11/20 Specimen Type: BLOOD No comment entered. Ordering Provider: JUAN JOSE HANLEY Report Released Date/Time : November 20, 2024 12:08 PM Reporting Lab: [place] [facility] [address] [place] [address] Performin g Lab: [place] [facility] [address] [place] [address] 8 [facility] CBC BASOPHILS [#/VOLUME] IN BLOOD BY AUTOMATED COUNT 0.04 10*3/uL 0.00 - 0.20 11/20 Specimen Type: BLOOD No comment entered. Ordering Provider: JUAN JOSE HANLEY Report Released Date/Time : November 20, 2024 12:08 PM Reporting Lab: [place] [facility] [address] [place] [address] Performin g Lab: [place] [facility] [address] [place] [address] 8 [facility] CBC IMMATURE GRANULOCYTE S/100 LEUKOCYTES IN BLOOD BY AUTOMATED COUNT 0.6 11/20 Specimen Type: BLOOD No comment entered. Ordering Provider: JUAN JOSE HANLEY Report Released Date/Time : November 20, 2024 12:08 PM Reporting Lab: [place] [facility] [address] [place] [address] Performin g Lab: [place] [facility] [address] [place] [address] 8 [facility] CBC IMMATURE GRANULOCYTE S [#/VOLUME] IN BLOOD BY AUTOMATED COUNT 0.03 10*3/uL 0.00 - 0.05 11/20 Specimen Type: BLOOD No comment entered. Ordering Provider: JUAN JOSE HANLEY Report Released Date/Time : November 20, 2024 12:08 PM Reporting Lab: [place] [facility] [address] [place] [address] Performin g Lab: [place] [facility] [address] [place] [address] 8 [facility] COMPREHENS ISAURO METABOLIC PANEL CREATININE [MASS/VOLUM E] IN SERUM OR PLASMA 0.92 mg/dL 0.7 - 1.3 11/20 Specimen Type: PLASMA No comment entered. Ordering Provider: JUAN JOSE HANLEY Report Released Date/Time : November 20, 2024 12:08 PM Reporting Lab: [place] [facility] [address] [place] [address] Performin g Lab: [place] [facility] [address] [place] [address] 8 [facility] COMPREHENS ISAURO METABOLIC PANEL UREA NITROGEN [MASS/VOLUM E] IN SERUM OR PLASMA 16 mg/dL 9 - 25 11/20 Specimen Type: PLASMA No comment entered. Ordering Provider: JUAN JOSE HANLEY Report Released Date/Time : November 20, 2024 12:08 PM Reporting Lab: [place] [facility] [address] [place] [address] Performin g Lab: [place] [facility] [address] [place] [address] 8 [facility] COMPREHENS ISAURO METABOLIC PANEL GLUCOSE [MASS/VOLUM E] IN SERUM OR PLASMA 95 mg/dL 72 - 99 11/20 Specimen Type: PLASMA No comment entered. Ordering Provider: JUAN JOSE HANLEY Report Released Date/Time : November 20, 2024 12:08 PM Reporting Lab: [place] [facility] [address] [place] [address] 8 Performin g Lab: [place] [facility] [address] [place] [address] 8 [facility] COMPREHENS ISAURO METABOLIC PANEL SODIUM [MOLES/VOLU ME] IN SERUM OR PLASMA 144 meq/L 136 - 145 11/20 Specimen Type: PLASMA No comment entered. Ordering Provider: JUAN JOSE HANLEY Report Released Date/Time : November 20, 2024 12:08 PM Reporting Lab: [place] [facility] [address] [place] [address] Performin g Lab: [place] [facility] [address] [place] [address] 8 [facility] COMPREHENS ISAURO METABOLIC PANEL POTASSIUM [MOLES/VOLU ME] IN SERUM OR PLASMA 5.1 meq/L 3.5 - 5 11/20 H Specimen Type: PLASMA No comment entered. Ordering Provider: JUAN JOSE HANLEY Report Released Date/Time : November 20, 2024 12:08 PM Reporting Lab: [place] [facility] [address] [place] [address] 8 Performin g Lab: [place] [facility] [address] [place] [address] 8 [facility] COMPREHENS ISAURO METABOLIC PANEL CHLORIDE [MOLES/VOLU ME] IN SERUM OR PLASMA 109 meq/L 98 - 107 11/20 H Specimen Type: PLASMA No comment entered. Ordering Provider: JUAN JOSE HANLEY Report Released Date/Time : November 20, 2024 12:08 PM Reporting Lab: [place] [facility] [address] [place] [address] Performin g Lab: [place] [facility] [address] [place] [address] 8 [facility] COMPREHENS ISAURO METABOLIC PANEL CARBON DIOXIDE, TOTAL [MOLES/VOLU ME] IN SERUM OR PLASMA 27 meq/L 22 - 31 11/20 Specimen Type: PLASMA No comment entered. Ordering Provider: JUAN JOSE HANLEY Report Released Date/Time : November 20, 2024 12:08 PM Reporting Lab: [place] [facility] [address] [place] [address] 8 Performin g Lab: [place] [facility] [address] [place] [address] 8 [facility] COMPREHENS ISAURO METABOLIC PANEL CALCIUM [MASS/VOLUM E] IN SERUM OR PLASMA 9.2 mg/dL 8.4 - 10.4 11/20 Specimen Type: PLASMA No comment entered. Ordering Provider: JUAN JOSE HANLEY Report Released Date/Time : November 20, 2024 12:08 PM Reporting Lab: [place] [facility] [address] [place] [address] 8 Performin g Lab: [place] [facility] [address] [place] [address] 8 [facility] COMPREHENS ISAURO METABOLIC PANEL PROTEIN [MASS/VOLUM E] IN SERUM OR PLASMA 6.1 g/dL 6 - 8.6 11/20 Specimen Type: PLASMA No comment entered. Ordering Provider: JUAN JOSE HANLEY Report Released Date/Time : November 20, 2024 12:08 PM Reporting Lab: [place] [facility] [address] [place] [address] 8 Performin g Lab: [place] [facility] [address] [place] [address] 8 [facility] COMPREHENS ISAURO METABOLIC PANEL ALBUMIN [MASS/VOLUM E] IN SERUM OR PLASMA 3.8 g/dL 3.4 - 5 11/20 Specimen Type: PLASMA No comment entered. Ordering Provider: JUAN JOSE HANLEY Report Released Date/Time : November 20, 2024 12:08 PM Reporting Lab: [place] [facility] [address] [place] [address] 8 Performin g Lab: [place] [facility] [address] [place] [address] 8 [facility] COMPREHENS ISAURO METABOLIC PANEL BILIRUBIN.T OTAL [MASS/VOLUM E] IN SERUM OR PLASMA 0.4 mg/dL 0.2 - 1.2 11/20 Specimen Type: PLASMA No comment entered. Ordering Provider: JUAN JOSE HANLEY Report Released Date/Time : November 20, 2024 12:08 PM Reporting Lab: [place] [facility] [address] [place] [address] 8 Performin g Lab: [place] [facility] [address] [place] [address] 8 [facility] COMPREHENS ISAURO METABOLIC PANEL ALKALINE PHOSPHATASE [ENZYMATIC ACTIVITY/VO LUME] IN SERUM OR PLASMA 71 U/L 40 - 150 11/20 Specimen Type: PLASMA No comment entered. Ordering Provider: JUAN JOSE HANLEY Report Released Date/Time : November 20, 2024 12:08 PM Reporting Lab: [place] [facility] [address] [place] [address] 8 Performin g Lab: [place] [facility] [address] [place] [address] 8 [facility] COMPREHENS ISAURO METABOLIC PANEL ASPARTATE AMINOTRANSF ERASE [ENZYMATIC ACTIVITY/VO LUME] IN SERUM OR PLASMA 18 U/L 5 - 34 11/20 Specimen Type: PLASMA No comment entered. Ordering Provider: JUAN JOSE HANLEY Report Released Date/Time : November 20, 2024 12:08 PM Reporting Lab: [place] [facility] [address] [place] [address] 8 Performin g Lab: [place] [facility] [address] [place] [address] 8 [facility] COMPREHENS ISAURO METABOLIC PANEL ALANINE AMINOTRANSF ERASE [ENZYMATIC ACTIVITY/VO LUME] IN SERUM OR PLASMA 17 U/L 8 - 40 11/20 Specimen Type: PLASMA No comment entered. Ordering Provider: JUAN JOSE HANLEY Report Released Date/Time : November 20, 2024 12:08 PM Reporting Lab: [place] [facility] [address] [place] [address] 8 Performin g Lab: [place] [facility] [address] [place] [address] 8 [facility] COMPREHENS ISAURO METABOLIC PANEL GLOMERULAR FILTRATION RATE/1.73 SQ M.PREDICTED [VOLUME RATE/AREA] IN SERUM, PLASMA OR BLOOD BY CREATININE- BASED FORMULA (CKD-EPI 2020) 88 11/20 Specimen Type: PLASMA No comment entered. Ordering Provider: JUAN JOSE HANLEY Report Released Date/Time : November 20, 2024 12:08 PM Reporting Lab: [place] [facility] [address] [place] [address] Performin g Lab: [place] [facility] [address] [place] [address] [facility] URIC ACID URATE [MASS/VOLUM E] IN SERUM OR PLASMA 7.1 mg/dL 3.5 - 7.2 10/26 Specimen Type: PLASMA No comment entered. Ordering Provider: JUAN JOSE HANLEY Report Released Date/Time : October 26, 2024 11:11 AM Reporting Lab: [place] [facility] [address] [place] [address] Performin g Lab: [place] [facility] [address] [place] [address] [facility] Vital Signs Combined list of inpatient and outpatient Vital Signs from Department of Defense and Veterans Affairs, ranging from 12 months to all on record, depending upon the facility. Vital Sign Value Date Comments Source SYSTOLIC BLOOD PRESSURE 135 01/25/2025 10:05:00 [facility] DIASTOLIC BLOOD PRESSURE 67 01/25/2025 10:05:00 [facility] PULSE OXIMETRY 92 % 01/25/2025 10:05:00 [facility] WEIGHT 176.6 01/25/2025 10:05:00 [facility] BMI 29 kg/m2 01/25/2025 10:05:00 [facility] PAIN 9 01/25/2025 10:05:00 [facility] TEMPERATURE 97.6 01/25/2025 10:05:00 [facility] PULSE 52 01/25/2025 10:05:00 [facility] RESPIRATION 18 01/25/2025 10:05:00 [facility] SYSTOLIC BLOOD PRESSURE 122 12/03/2024 11:32:00 [facility] DIASTOLIC BLOOD PRESSURE 68 12/03/2024 11:32:00 [facility] PULSE OXIMETRY 91 12/03/2024 11:32:00 [facility] WEIGHT 176.9 12/03/2024 11:32:00 [facility] BMI 29 kg/m2 12/03/2024 11:32:00 [facility] PAIN 9 12/03/2024 11:32:00 [facility] HEIGHT 66.0 12/03/2024 11:32:00 [facility] TEMPERATURE 97.4 12/03/2024 11:32:00 [facility] PULSE 50 12/03/2024 11:32:00 [facility] RESPIRATION 17 12/03/2024 11:32:00 [facility] SYSTOLIC BLOOD PRESSURE 105 11/20/2024 12:00:39 [facility] DIASTOLIC BLOOD PRESSURE 64 11/20/2024 12:00:39 [facility] PULSE OXIMETRY 95 11/20/2024 12:00:39 [facility] WEIGHT 177.5 11/20/2024 12:00:39 [facility] BMI 29 kg/m2 11/20/2024 12:00:39 [facility] PAIN 7 11/20/2024 12:00:39 [facility] PULSE 64 11/20/2024 12:00:39 [facility] RESPIRATION 22 11/20/2024 12:00:39 [facility] SYSTOLIC BLOOD PRESSURE 127 10/26/2024 11:01:05 [facility] DIASTOLIC BLOOD PRESSURE 64 10/26/2024 11:01:05 [facility] PULSE OXIMETRY 92 10/26/2024 11:01:05 [facility] WEIGHT 173 10/26/2024 11:01:05 [facility] BMI 28 kg/m2 10/26/2024 11:01:05 [facility] TEMPERATURE 98.4 10/26/2024 11:01:05 [facility] PULSE 78 10/26/2024 11:01:05 [facility] RESPIRATION 19 10/26/2024 11:01:05 [facility] SYSTOLIC BLOOD PRESSURE 123 07/24/2024 12:04:00 [facility] DIASTOLIC BLOOD PRESSURE 62 07/24/2024 12:04:00 [facility] PULSE OXIMETRY 90 07/24/2024 12:04:00 [facility] WEIGHT 181.3 07/24/2024 12:04:00 [facility] BMI 29 kg/m2 07/24/2024 12:04:00 [facility] PAIN 10 07/24/2024 12:04:00 [facility] TEMPERATURE 97.9 07/24/2024 12:04:00 [facility] PULSE 67 07/24/2024 12:04:00 [facility] RESPIRATION 17 07/24/2024 12:04:00 [facility] Encounters Combined list of: 1) Encounters from Department of Veterans Affairs facilities going backup to the last 18 months, not all VA inpatient encounters are included; 2) Encounters from the Department of Defense facilities going backup to 280 months. Location Location Details Encounter Type Encounter Number Reason For Visit Attending Provider ADM Date DC Date Status Disposition Source [facility] Outpatient Encounter [id number] 08/17 [facility] Outpatient Encounter [id number] 08/18 [facility] Outpatient Encounter [id number] 08/18 [facility] Outpatient Encounter [id number] 08/24 [facility] Outpatient Encounter [id number] [facility] OFFICE O/P EST LOW 20 MIN [id number] Diagnos is: ICD-10- CM M54.50 Low back pain, unspeci Morena Chambers [facility] Outpatient Encounter [id number] 09/01 [facility] Outpatient Encounter [id number] 09/01 [facility] Outpatient Encounter [id number] 09/11 [facility] Outpatient Encounter [id number] [id number] 09/22 [facility] Outpatient Encounter [id number] [id number] 09/27 [facility] Outpatient Encounter [id number] 09/28 [facility] HC PRO PHONE CALL 5-10 MIN [id number] Diagnos is: ICD-10- CM R93.89 Abnorma l finding s on dx imaging of oth body structu res CINTHIA HOLLAND R 09/28 [facility] [id number] 09/29 [facility] Outpatient Encounter [id number] 09/29 [facility] OFF/OP EST OCTOBER X REQ PHY/QHP [id number] Diagnos is: ICD-10- CM L02.214 [place] us abscess of groin SKYLERCINTHIA R 09/29 [facility] Outpatient Encounter [id number] MARIELLA LION L 10/02 [facility] Outpatient Encounter [id number] [id number] 10/02 [facility] Outpatient Encounter [id number] [id number] 10/03 [facility] Outpatient Encounter [id number] [id number] 10/03 [facility] HC PRO PHONE CALL 5-10 MIN [id number] Diagnos is: ICD-10- CM Z71.89 Other specifi ed hiv counselor ing SKYLER,JO JONATHAN R 10/09 [facility] Outpatient Encounter [id number] CINTHIA HOLLAND R 10/11 [facility] Outpatient Encounter [id number] [id number] 10/12 [facility] Outpatient Encounter [id number] [id number] 11/29 [facility] OFF/OP EST OCTOBER X REQ PHY/QHP [id number] Diagnos is: ICD-10- CM H61.22 Impacte d cerumen , left ear UDAY UNDERWOOD 12/04 [facility] FAC[facility] FEE [id number] [id number] Diagnos is: ICD-10- CM H90.3 Sensori neural hearing loss, bilater al MARIA LUISA RED RT P 12/07 [facility] BOTH EARS [id number] [id number] Diagnos is: ICD-10- CM H90.3 Sensori neural hearing loss, bilater al [place] RT P 12[facility]07 [facility] En[facility] [id number] 12/14 [facility] Outpatient Encounter [id number] [id number] 12/14 [facility] Out[facility] Encounter [id number] [id number] 12/18 [facility] Outpatient Encounter [id number] [id number] 12/26 [facility] Outpatient Encounter [id number] [id number] 01/01 [facility] Outpatient Encounter [id number] [id number] 01/01 [place] Outpatient Encounter [id number] [id number] 01/02 [facility] Outpatient Encounter [id number] [id number] 01/15 [facility] FAC[facility] FEE [id number] Diagnos is: ICD-10- CM Z46.1 Encount er for fitting and adjustm ent of hearing aid MARIA LUISA RED RT P 01/17 [facility] SER [id number] Diagnos is: ICD-10- CM Z46.1 Encount er for fitting and adjustm ent of hearing aid MARIA LUISA RED RT P 01/17 [facility] Encounter [id number] 01/18 [facility] Outpatient Encounter [id number] [id number] 01/22 [facility] HC PRO PHONE CALL 5-10 MIN [id number] Diagnos is: ICD-10- CM I95.9 Hypoten tripp, unspeci fied SKYLER,CINTHIA JONATHAN R 01/23 [facility] En[facility] [id number] [id number] 01/29 [facility] CB OFF/OP EST MAY X REQ PHY/QHP [id number] Diagnos is: ICD-10- CM Z01.30 Encount er for exam of blood pressur e w/o abnorma l finding s CINTHIA HOLLAND R 01/30 [facility] Outpatient Encounter [id number] 01/30 [facility] Outpatient Encounter [id number] [id number] 02/13 [facility] Encounter [id number] [id number] 02/14 [facility] Out[facility] Encounter [id number] [id number] 02/15 [facility] OFFICE O/P EST MOD 30 MIN [id number] Diagnos is: ICD-10- CM M17.11 Unilate ral primary osteoar thritis , right knee Morena HANLEY 02/15 [facility] Outpatient Encounter [id number] [id number] 02/15 [facility] Outpatient Encounter [id number] [id number] 02/19 [facility] HC PRO PHONE CALL 5-10 MIN [id number] Diagnos is: ICD-10- CM I10 Essenti al (primar y) hyperte nsion CINTHIA HOLLAND JONATHAN R 02/23 [facility] Outpatient Encounter [id number] [id number] 02/27 [facility] Outpatient Encounter [id number] [id number] 02/28 [facility] Out[facility] Encounter [id number] [id number] 02/28 [facility] En[facility] [id number] [id number] 03/05 [facility] HC PRO PHONE CALL 5-10 MIN [id number] Diagnos is: ICD-10- CM R93.89 Abnorma l finding s on dx imaging of oth body structu res SKYLER,JO JONATHAN R 03/20 [facility] Outpatient Encounter [id number] [id number] 03/29 [facility] Encounter [id number] [id number] 04/04 [facility] HC PRO PHONE CALL 5-10 MIN [id number] Diagnos is: ICD-10- CM R60.0 Localiz ed edema SKYLER,CINTHIA CASTILLO R 04/04 [facility] Encounter [id number] [id number] MARIELLA LION 04/05 [facility] Outpatient Encounter [id number] [id number] 04/23 [facility] Outpatient Encounter [id number] [id number] 04/23 [facility] Outpatient Encounter [id number] [id number] 04/24 [facility] Outpatient Encounter [id number] [id number] 04/24 [facility] Outpatient Encounter [id number] [id number] 05/01 [facility] Outpatient Encounter [id number] [id number] 05/03 [facility] IMMUNIZATI ON ADMIN [id number] [id number] Diagnos is: ICD-10- CM Z23 Encount er for immuniz ation RUFUS GRAY L 05/09 [facility] Outpatient Encounter [id number] [id number] 06/05 [facility] Outpatient Encounter [id number] [id number] 06/06 [facility] Outpatient Encounter [id number] [id number] 07/04 [facility] Outpatient Encounter [id number] [id number] 07/04 [facility] Outpatient Encounter [id number] [id number] 07/04 [facility] Outpatient Encounter [id number] [id number] 07/05 [facility] Outpatient Encounter [id number] [id number] 07/11 [facility] Outpatient Encounter [id number] [id number] UDAY UNDERWOOD 07/18 [facility] OFFICE O/P EST LOW 20 MIN [id number] Diagnos is: ICD-10- CM G89.29 Other chronic pain Morena HANLEY 07/24 [facility] Encounter [id number] [id number] 07/24 [facility] Outpatient Encounter [id number] [id number] 07/26 [facility] Outpatient Encounter [id number] [id number] MARIELLA LION 07/30 [facility] Outpatient Encounter [id number] [id number] 08/29 [facility] Outpatient Encounter [id number] [id number] 09/17 [facility] Outpatient Encounter [id number] [id number] 09/20 [facility] Outpatient Encounter [id number] [id number] 09/21 [facility] Outpatient Encounter [id number] [id number] 09/25 [facility] Outpatient Encounter [id number] [id number] RIVERA MENDEZ 10/08 [facility] Outpatient Encounter [id number] [id number] 10/11 [facility] Outpatient Encounter [id number] [id number] 10/16 [facility] OFF/OP EST MAY X REQ PHY/QHP [id number] Diagnos is: ICD-10- CM M79.675 Pain in left toe(s) Hanna TURNER 10/26 [facility] OFFICE O/P EST LOW 20 MIN [id number] [id number] Diagnos is: ICD-10- CM M13.0 Polyart hritis, unspeci Morena Chambers 10/26 [facility] Outpatient Encounter [id number] [id number] 11/09 [facility] Outpatient Encounter [id number] [id number] 11/15 [facility] Outpatient Encounter [id number] [id number] 11/15 [facility] OFF/OP EST OCTOBER X REQ PHY/QHP [id number] OG MURPHY 11/20 [facility] OFFICE O/P EST MOD 30 MIN [id number] [id number] Diagnos is: ICD-10- CM 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 Morena Sweeney [place] 11/20 [facility] Outpatient Encounter [id number] 11/20 [facility] Outpatient Encounter [id number] [id number] 11/21 [facility] Outpatient Encounter [id number] [id number] RADHA WILCOX 11/21 [facility] Outpatient Encounter [id number] [id number] 11/21 [facility] Outpatient Encounter [id number] [id number] 11/21 [facility] Outpatient Encounter [id number] [id number] MARIELLA LION L 11/22 [facility] Outpatient Encounter [id number] [id number] 11/26 [facility] Outpatient Encounter [id number] [id number] HARSHAD ORTEGA IE L 11/30 [facility] OFFICE O/P EST LOW 20 MIN [id number] Diagnos is: ICD-10- CM 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 Morena Sweeney [place] 12/03 [facility] Outpatient Encounter [id number] [id number] 12/10 [facility] Outpatient Encounter [id number] [id number] 12/12 [facility] Outpatient Encounter [id number] [id number] 12/19 [facility] Outpatient Encounter [id number] [id number] 01/08 [facility] Outpatient Encounter [id number] [id number] 01/16 [facility] Outpatient Encounter [id number] [id number] 01/21 [facility] Outpatient Encounter [id number] [id number] 01/25 [facility] OFF/OP EST MAY X REQ PHY/QHP [id number] Diagnos is: ICD-10- CM N49.2 Inflamm atory disorde rs of scrotum GAITAN,AN SANTANA D 01/25 [facility] Outpatient Encounter [id number] [id number] 01/25 [facility] OFFICE O/P EST MOD 30 MIN [id number] [id number] Diagnos is: ICD-10- CM N49.2 Inflamm atory disorde rs of scrotum COLLEEN YOU ORION G 01/25 [facility] Outpatient Encounter [id number] [id number] 01/25 [facility] Outpatient Encounter [id number] [id number] MARIELLA LION RIL L 01/28 [facility] Outpatient Encounter [id number] [id number] 01/29 [facility] Outpatient Encounter [id number] [id number] BOBBY AGUILARJOSE Berg 01/29 [facility] Outpatient Encounter [id number] [id number] 01/30 [facility] Outpatient Encounter [id number] [id number] 01/30 [facility] Outpatient Encounter [id number] [id number] 01/30 [facility] PH1 ASSMT&MGMT NQHP 5-10 [id number] Diagnos is: ICD-10- CM R19.7 Diarrhe a, unspeci CINTHIA Butler 01/30 [facility] Outpatient Encounter [id number] [id number] MARIELLA LION RIL L 02/06 [facility] Outpatient Encounter [id number] [id number] 02/11 [facility] Social History Combined list of available smoking, tobacco, and other social history from Department of Defense and Veterans Affairs facilities. Social History Type Response Date Comment [facility] e Tobacco smoking status [facility] VA-TOBACCO FORMER USER 02/16/2024 [facility] History of tobacco use VA-TOBACCO QUIT 1 5 YRS OR MORE 02/16/2024 [facility] History of tobacco use VA-TOBACCO QUIT 1 5 YRS OR MORE 02/18/2023 [facility] History of tobacco use VA-TOBACCO QUIT 1 5 YRS OR MORE 08/24/2022 [facility] History of tobacco use VA-TOBACCO FORMER USER 11/12/2021 [facility] History of tobacco use VA-TOBACCO FORMER USER 01/08/[address] [facility] History of tobacco use VA-TOBACCO QUIT 1 5 YRS OR MORE 11/06/2019 [facility] History of tobacco use VA-TOBACCO FORMER USER 06/09/2018 [facility] History of tobacco use FORMER TOBACCO US ER 7Y OR GREATER 11/30/2017 [facility] History of tobacco use FORMER TOBACCO US ER 7Y OR GREATER 12/21/2016 [facility] History of tobacco use QUIT TOBACCO >7 Y EARS AGO 04/30/2015 [facility] History of tobacco use QUIT TOBACCO >7 Y EARS AGO 12/07/2013 [facility] History of tobacco use QUIT TOBACCO >12 MO and <7 YRS AGO 08/22/2013 [facility] History of tobacco use LIFETIME NON-USER OF TOBACCO 08/30/2012 [facility] History of tobacco use QUIT TOBACCO >7 Y EARS AGO 10/12/2011 [facility] History of tobacco use FORMER TOBACCO US E >1Y <7Y 08/12/2010 [facility] History of tobacco use FORMER TOBACCO US E >1Y <7Y 03/03/2010 [facility] History of tobacco use FORMER TOBACCO US E >1Y <7Y 02/05/2009 [facility] History of tobacco use CURRENT TOBACCO USER 08/28/2007 [facility] History of tobacco use CURRENT TOBACCO USER 07/27/2006 [facility] Plan of Care List of future care activities from Department of Veterans Affairs facilities. Additional future care activities may be listed in the Assessment and Plan section. Date/Time Care Activity Care Activity Detail Facili ty 02/11/2025 AMBULATORY - MEDICINE AMBULATORY - MEDICI RL [facility] Advance Directives List of completed, amended, or rescinded Advance Directives on record at Department of Veterans Affairs facilities. An actual copy of the Directive is not included. Date Advance Directive Provider Source 10/19/2011 [facility]VANCE DIRECTIVE [facility] 07/27/2006 ADVANCE DIRECTIVE SWAPNA [facility]
--- OUTSIDE RECORDS SUMMARY | 2025-02-11 13:13 | XMS_ITS | Encounter Summary ---
Author Organization [facility] Address [address] [place] [address] Care Team Providers Care Rag Willow Operator Name Role Phone Anitha Miller MD Primary Care Provider Unavailab le Encounter Details Date Type Department Care Team (Latest Contact Info) Description 09/17/2003 Outpatient Historical [facility] [place] [address] [address] Jeison Johnson II, MD [address] [place] [address] [phone] CORON ATHEROSCL JAMUL CORON VESSEL (Primary Dx) Social History Tobacco Use Types Packs/Day Years Used Date Smoking Tobacco: Never Assessed Sex and Gender Information Value Date Recorded Sex Assigned at Not on file 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
--- OUTSIDE RECORDS SUMMARY | 2025-02-11 13:13 | XMS_ITS | Encounter Summary ---
Author Organization [facility] Address [address] Orozco: [place] [address] Care Team Providers Care Pickling Tank Operator Name Role Phone Anitha Miller MD Primary Care Provider Unavailab le Encounter Details Date Type Department Care Team (Late st Contact Info) Description 08/12/2003 Inpatient [facility] Jeison Amezquita MD [address] [place] [address] [phone] 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
--- OUTSIDE RECORDS SUMMARY | 2025-02-11 13:13 | XMS_ITS | Clinical Summary ---
Author Organization [facility] Address [address] [facility] Attn: [place] [address] Care Team Providers Care Fisher Hoop Net Name Role Phone Anitha Miller MD Primary [...] Data STL ABSTRACTION Provider, Abstract 01/29/2025 Telephone [facility] [place] [address] Provider, Abstract Needs Appointment [facility]2025 [facility] [place] [address] [place] [address] Provider, Abstract 01/09/2025 External Device Data STL [...] on file Legal 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 Male 2:33 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 Gender Identity Not on file Sexual Orientation Not on file Last Filed Vital Signs Vital Sign Reading Time Taken Comments Blood Pressure 143/75 10/23/2014 3:38 PM CDT 127 /64 Pulse 60 10/23/2014 3:38 PM CDT 60 Temperature 36.7 C (98 F) 08/01/2014 3:00 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 Respiratory Rate 16 08/01/2014 3:00 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 Oxygen Saturation - - Inhaled Oxygen Concentration - - Weight 75.3 kg (166 lb) 10/23/2014 3:38 PM CDT Height 170.2 cm (5' 7 ) 10/23/2014 3:38 PM CDT Body Mass Index 26 10/23/2014 3:38 PM CDT Plan of Treatment Upcoming Encounters Date Type Department Care Team (Late st Contact Info) Description 02/11/2025 2:30 PM CDT Office Visit [address] [place] [phone] Gael Allen MD [address] [facility] [address] [place] [address] Health Maintenance Due Date Last [...] series) 11/15/2026 Medical Devices Implanted Type Area Clerical Investigator Device Identifier Shelf Expiration Date Model / Serial / Lot Plate Lcp Humerus 3hole 241.901 - [id number] Implanted:Qty: 1 on 07/26/2014 by Jeff Frank MD Plate [employer] 241.901 / [id number] / [address] 3.5x32mm 204.832 - [id number] Implanted:Qty: 1 on 07/26/2014 by Jeff Frank MD Screw [employer] 204.832 / [id number] / Screw [address] Loc Stdrv 3.5x32mm 212.112 - [id number] Implanted:Qty: 1 on 07/26/2014 by Jeff Frank MD Screw [employer] 212.112 / [id number] 604 / [address] Loc Stdrv 3.5x34mm 212.113 - [id number] Implanted:Qty: 1 on 07/26/2014 by Jeff Frank MD Screw [employer] 212.113 / [id number] / [address] Loc Stdrv 3.5x42mm 212.118 - [id number] Implanted:Qty: 2 on 07/26/2014 by Jeff Frank MD Screw [employer] 212.118 / [id number] 604 / Screw [address] Loc Stdrv 3.5x48mm 212.120 - [id number] Implanted:Qty: 1 on 07/26/2014 by Jeff Frank MD Screw [employer] 212.120 / [id number] 604 / Screw [address] Loc Stdrv 3.5x50mm 212.121 - [id number] Implanted:Qty: 2 on 07/26/2014 by Jeff Frank MD Screw [employer] 212.121 / [id number] / Screw [address] Loc Stdrv 3.5x55mm 212.123 - [id number] Implanted:Qty: 2 on 07/26/2014 by Jeff Frank MD Screw [employer] 212.123 / [id number] / Insurance [facility] [id number] [facility] [place] Address: [address] [address] [place] [address] [facility] * Guarantor: [facility] Account Type Relation to Patient Date of Phone Billing Address Corporate [place] [address] [facility] Care Teams [place] [employer] Relationship Specialty Start Date End Date Anitha Miller MD NO ADDRESS ON FILE PCP - General Skid Man 07/22/14 Mary Sahu [address] [place] [id number] Referring Physician 04/19/24
--- OUTSIDE RECORDS SUMMARY | 2025-02-11 13:15 | XMS_ITS | Encounter Summary ---
Author Organization [facility] Address [address] [place] [address] Care Team Providers Care Direct Support Professional Name Role Phone Anitha Miller MD Primary Care Provider Unavailab le Encounter Details Date Type Department Care Team (Late st Contact Info) Description 01/01/2004 Emergency [facility] Emergency Department [address] 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
--- OUTSIDE RECORDS SUMMARY | 2025-02-11 13:15 | XMS_ITS | Encounter Summary ---
Author Organization [facility] Address [address] [place] [address] Care Team Providers Care Welt Stitcher Name Role Phone Anitha Miller MD Primary Care Provider Unavailab le Encounter Details Date Type Department Care Team (Late st Contact Info) Description 12/16/2014 Ancillary Orders [facility] Orthopedics - Orthopedic [facility] [address] [place] [phone] Jaime Qiu MD [address] [place] [phone] Pain (Primary Dx) Social History Tobacco Use Types Packs/Day Years Used Date Smoking Tobacco: Former Cigarettes Q uit: 08/14/2007 Smokeless Tobacco: Never Alcohol Use Standard Drinks/Week Comments Yes 0 (1 standard drink = 0.6 oz pur e alcohol) Sex and Gender Information Value Date Recorded Sex Assigned at Not on file 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
--- OUTSIDE RECORDS SUMMARY | 2025-02-11 13:15 | XMS_ITS | Clinical Summary ---
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 Gender Identity Not on file Sexual Orientation Not on file Last Filed Vital Signs Vital Sign Reading Time Taken Comments Blood Pressure 143/75 10/23/2014 3:38 PM CDT 127 /64 Pulse 60 10/23/2014 3:38 PM CDT 60 Temperature 36.7 C (98 F) 08/01/2014 3:00 PM CARE TRAINER Respiratory Rate 16 08/01/2014 3:00 PM CARE TRAINER Oxygen Saturation 94% 08/15/2014 11:12 AM CARE TRAINER Inhaled Oxygen Concentration - - Weight 75.3 [...] series) 11/15/2026 Medical Devices Implanted Type Area Carroting Machine Operator Device Identifier Shelf Expiration Date Model / Serial / Lot Plate Lcp Humerus 3hole 241.901 - [id number] Implanted:Qty: 1 on 07/26/2014 by Jeff Frank MD at [facility] Plate [employer]AT[employer] 241.901 / [id number] / [address] 3.5x32mm 204.832 - [id number] Implanted:Qty: 1 on 07/26/2014 by Jeff Frank MD at [facility] Screw [employer]AT[employer] 204.832 / [id number] / Scre[address] Loc Stdrv 3.5x32mm 212.112 - [id number] Implanted:Qty: 1 on 07/26/2014 by Jeff Frank MD at [facility] Screw [employer] 212.112 / [id number] / [address] Loc Stdrv 3.5x42mm 212.118 - [id number] Implanted:Qty: 2 on 07/26/2014 by Jeff Frank MD at [facility] Screw [employer] 212.118 / [id number] / Screw St Loc Stdrv 3.5x50mm 212.121 - [id number] Implanted:Qty: 2 on 07/26/2014 by Jeff Frank MD at [facility] Screw [employer] 212.121 / [id number] / Screw [address] Loc Stdrv 3.5x48mm 212.120 - [id number] Implanted:Qty: 1 on 07/26/2014 by Jeff Frank MD at [facility] Screw [employer] 212.120 / [id number] / Screw [address] Loc Stdrv 3.5x55mm 212.123 - [id number] Implanted:Qty: 2 on 07/26/2014 by Jeff Frank MD at [facility] Screw [employer] 212.123 / [id number] / Screw St Loc Stdrv 3.5x34mm 212.113 - [id number] Implanted:Qty: 1 on 07/26/2014 by Jeff Frank MD at [facility] Screw [employer] 212.113 / [id number] / Insurance MEDICARE PART A [place] B [place] Advance Directives For more information, please contact: [phone] * Full Code (Latest Code Status on File) Date Activated Date Inactivated Comments 07/26/2014 1:49 PM 08/01/2014 9:34 PM * Full Code Date Activated Date Inactivated Comments 07/23/2014 5:59 PM 07/24/2014 9:51 PM Care Teams Accounts Clerk Relationship Specialty Start Date End Date Anitha Miller MD PCP - General Aircraft Communicator 07/22/14
[2025-02-11 13:22] VITALS: BP 131/90; PULSE 54; TEMP 36.5; O2SAT 94
--- NOTE | 2025-02-11 13:57 | XRR_ITS ---
PROCEDURE INFORMATION: Exam: XR Right Knee Exam date and time: 02/11/2025 2:31 PM Age: 74 years old Clinical indication: Injury or trauma; Fall; Blunt trauma; Knee; Right TECHNIQUE: Imaging protocol: Radiologic exam of the right knee. Views: 3 views. COMPARISON: CR XR knees AP WB w BI lmt ORTH 11/26/2024 9:28 AM FINDINGS: Bones/joints: Alignment is normal. Mild medial femorotibial compartment joint space narrowing. No visible joint effusion. No acute fracture. Soft tissues: Skin ricardo in the medial distal thigh and proximal lower leg. Vasculature: Vascular calcification is present. XR/XR knee RT 3V* [id number] IMPRESSION: No acute findings.
--- NOTE | 2025-02-11 13:57 | W.ED.EXTPRO ---
HPI - Extremity Problem General: Chief complaint: Extremity Injury, Lower Stated complaint: FALL; KNEE PAIN Time Seen by Provider: 02/11/25 13:28 Source: patient and EMS Mode of arrival: EMS Limitations: no limitations History of Present Illness: Patient is a 74-year-old male presented to ED today with complaint of bilateral knee pain and frequent falls. Patient states he has been falling ever since I had surgery on my neck which after inquiry, was approximately 15 to 20 years ago. He states my knees are bad . States he was supposed to have a right knee replacement at some point but never completed this. He states he chronically walks with a cane and/or a walker due to his falls and knee pain. He states he has numbness to his bilateral lower legs that have been present for several years. He is not a diabetic. Patient states he fell today and landed on his right knee. He feels like his knee pain today is worse than normal causing him to not be able to walk with his walker. He states he lives with his daughter who helps care for him. MD Complaint: joint pain Onset (ago): year(s) Pain Consistency: constant Location: left, right and knee Relieving factors: immobilization Exacerbating factors: range of motion and weight bearing Associated symptoms: Reports no associated symptoms; Deny chest pain or fever(s) Related Data Home Medications ?Medication ?Instructions ?Recorded ?Confirmed atorvastatin 80 mg tablet 80 mg PO QPM 07/23/23 01/08/25 carvedilol 6.25 mg tablet 3.125 mg PO BID 07/23/23 01/08/25 cholecalciferol (vitamin D3) 25 25 mcg PO DAILY 07/23/23 01/08/25 mcg (1,000 unit) tablet cilostazol 100 mg tablet 100 mg PO BID 07/23/23 01/08/25 clopidogrel 75 mg tablet 75 mg PO DAILY 07/23/23 01/08/25 docusate sodium 100 mg capsule 100 mg PO BID 07/23/23 01/08/25 (Colace) ferrous sulfate 325 mg (65 mg 162.5 mg PO QAM 07/23/23 01/08/25 iron) tablet lisinopril 20 mg tablet 30 mg PO DAILY 07/23/23 01/08/25 pantoprazole 40 mg tablet,delayed 40 mg PO QAM 07/23/23 01/08/25 release pregabalin 75 mg capsule (Lyrica) 75 mg PO BID 07/23/23 01/08/25 sennosides 8.6 mg tablet (senna) 8.6 mg PO DAILY 07/23/23 12/19/24 oseltamivir 75 mg capsule mg PO 12/19/24 01/08/25 baclofen 10 mg tablet 10 mg PO BID Muscle Spasm 01/08/25 01/08/25 Previous Rx's ?Medication ?Instructions ?Recorded diclofenac sodium 1 % topical gel 4 g topical QID #100 grams 04/23/24 hinged knee brace #1 ea 04/23/24 benzonatate 200 mg capsule 200 mg PO TID PRN cough #20 caps 07/28/24 albuterol sulfate 90 mcg/actuation 2 inh inhalation Q4H PRN shortness 11/21/24 aerosol inhaler of breath or wheezing #8.5 grams leflunomide 20 mg tablet 20 mg PO DAILY #90 tabs 01/02/25 prednisone 5 mg tablet 5 mg PO DAILY joint pain #90 tabs 01/02/25 amoxicillin 875 mg-potassium 1 tab PO BID #20 tabs 01/25/25 clavulanate 125 mg tablet hydrocodone 5 mg-acetaminophen 325 1 tab PO Q8H #10 tabs 01/25/25 mg tablet hydrocodone 5 mg-acetaminophen 325 1 tab PO Q6H PRN pain #14 tabs 02/06/25 mg tablet sulfamethoxazole 800 1 tab PO BID 10 days #20 tabs 02/06/25 mg-trimethoprim 160 mg tablet (Bactrim DS) Allergies Allergy/AdvReac Type Severity Reaction Status Date / Time No Known Allergies Allergy Verified 02/11/25 13:26 Review of Systems Const: Denies: fever(s) Card: Denies: chest pain, palpitations, lightheadedness, syncope or pre-syncope Resp: Denies: dyspnea Musc: Reports: joint pain (bilateral knee pain) Neuro: Reports: sensory changes (reports chronic bilateral LE numbness) and difficulty walking; Denies: weakness in extremities, lack of coordination or dizziness PFS ED PFSH: Medical History Immunization counseling High risk medication use Polyarthralgia Anxiety Acute anxiety Anemia CAD (coronary artery disease) History of hypertension Hyperlipidemia Abdominal hernia Claudication PAD (peripheral artery disease) Stenosis of artery of left lower extremity Psychiatric care Fall at home Recurrent right knee instability Osteoarthritis of right knee Surgical History H/O gastric bypass x4 History of eye surgery History of neck surgery x2 History of shoulder surgery left History of cholecystectomy Previous back surgery x5 S/P hernia surgery Family History Other Anemia Cancer Hypertension Denies family history of Lupus (systemic lupus erythematosus) Rheumatoid arthritis Diabetes CAD (coronary artery disease) Migraines Chronic kidney disease (CKD) Stroke Social History Smoking and tobacco/nicotine status: former use of tobacco/nicotine Physical Exam Const: COMMON NORMALS: no acute distress, average body habitus, no limitations, healthy appearing, alert and well nourished GENERAL APPEARANCE: cooperative Neck/C-Spine: COMMON NORMALS: full ROM Resp: COMMON NORMALS: normal respiratory effort and clear to auscultation bilaterally AUSCULTATION: clear to auscultation bilaterally Cardio: COMMON NORMALS: regular rhythm RATE: bradycardic RHYTHM: regular rhythm Back/Pelvis: COMMON NORMALS: thoracic and lumbar spine normal to inspection and no thoracic nor lumbar tenderness Extremity: COMMON NORMALS: full ROM GENERAL: Yes normal exam except as noted OTHER: mild abrasion anterior R knee; has fairly normal passive ROM of both knee joints Neuro: COMMON NORMALS: moves all extremities and no focal motor deficits SENSORIUM/ORIENTATION: Yes alert Course Vital Signs: Vital signs: Vital Signs Temperature 97.7 F 02/11/25 13:22 Pulse Rate 53 L 02/11/25 15:35 Blood Pressure 109/58 02/11/25 15:35 Pulse Oximetry 94 02/11/25 15:35 Oxygen Delivery Me thod Room Air 02/11/25 13:22 MDM - Extremity (Nontraumatic) Medical Decision Making Attempted to ambulate patient with a walker but was unsuccessful. He states his knees hurt too bad to try to walk. Patient does not want to go to alf/custodial facility. XR imaging of his right knee obtained here and unremarkable. He would like to go home with a wheelchair. He states his daughter will continue to help care for him. Ultimately feel his symptoms are chronic and do not require emergent workup. Recommend he follow-up with his primary care provider and/or his affiliate marketing specialist. Certainly there are other etiologies to his chronic falls apart from chronic knee pain including neuropathy, balance issues, etc but ultimately there is no acute/emergent process today. Medical Records I reviewed the patient's medical records. Lab Data Radiology Impressions Knee X-Ray 02/11/25 13:57 IMPRESSION: No acute findings. All radiology interpretation(s) finalized by discharge Discharge Plan Discharge Patient Disposition: Home Clinical Impression: Chronic pain of both knees, Frequent falls Condition: Stable Prescriptions: No Action diclofenac sodium 1 % gel 4 g topical QID Qty: 100 3RF Rx Instructions: apply to single knee, ankle, foot; for foot includes sole/toes/top of foot (DME) hinged knee brace See Rx Instructions .Route .MEDSUPPLY Qty: 1 0RF Rx Instructions: As directed oseltamivir 75 mg capsule PO leflunomide 20 mg tablet 20 mg PO DAILY Qty: 90 1RF prednisone 5 mg tablet 5 mg PO DAILY Qty: 90 1RF benzonatate 200 mg capsule 200 mg PO TID PRN (Reason: cough) Qty: 20 0RF amoxicillin-pot clavulanate 875-125 mg tablet 1 tab PO BID Qty: 20 0RF hydrocodone-acetaminophen 5-325 mg tablet 1 tab PO Q8H Qty: 10 0RF hydrocodone-acetaminophen 5-325 mg tablet 1 tab PO Q6H PRN (Reason: pain) Qty: 14 0RF sulfamethoxazole-trimethoprim [Bactrim DS] 800-160 mg tablet 1 tab PO BID 10 Days Qty: 20 0RF cilostazol 100 mg Tablet 100 mg PO BID atorvastatin 80 mg Tablet 80 mg PO QPM senna 8.6 mg Tablet 8.6 mg PO DAILY carvedilol 6.25 mg Tablet 3.125 mg PO BID Rx Instructions: must administer with a meal/food lisinopril 20 mg Tablet 30 mg PO DAILY clopidogrel 75 mg Tablet 75 mg PO DAILY pantoprazole 40 mg Tablet,Delayed Release (Dr/Ec) 40 mg PO QAM ferrous sulfate 325 mg (65 mg iron) Tablet 162.5 mg PO QAM Colace 100 mg Capsule 100 mg PO BID pregabalin [Lyrica] 75 mg capsule 75 mg PO BID cholecalciferol (vitamin D3) 25 mcg (1,000 unit) Tablet 25 mcg PO DAILY baclofen 10 mg tablet 10 mg PO BID albuterol sulfate 90 mcg/actuation HFA aerosol inhaler 2 inh inhalation Q4H PRN (Reason: shortness of breath or wheezing) Qty: 8.5 2RF Discharge Orders: Discharge ED (Routine); Ordered 02/11/25 Ordered By: Nirali Kahn Other Ambulatory Orders: DME: Wheelchair (Order) Location: None Selected Ordered By: Nirali Kahn Referrals: Mary Sahu MD [Primary Care Provider, Family Practice] Patient Instructions: Patient Portal & Lesly Instructions Activity Restrictions/Additional Instructions: As we discussed, I would like you to follow-up with your primary care provider as well as your affiliate marketing specialist. Will discharge you home with a wheelchair to help reduce fall instances in your home. Print Language: Mongolian Coding Level of Care Code ED Wool Hat Hydraulicker for Obey Ochoa
[2025-02-11 15:35] VITALS: BP 109/58; PULSE 53; O2SAT 94
== END 2025-02-11 15:50 | disposition home or self-care (01) ==
PROVIDERS: Emergency Provider Physician Assistant; PCP Family Medicine
DX: M25.561 Pain in right knee (principal); G89.29 Other chronic pain; Z79.02 Long term (current) use of antithrombotics/antiplatelets; Z87.891 Personal history of nicotine dependence; I25.10 Atherosclerotic heart disease of native coronary artery without angina pectoris; E78.5 Hyperlipidemia, unspecified; I10 Essential (primary) hypertension
CPT/HCPCS: 73562; 99283

== ENCOUNTER 2025-03-06 08:52 | Outpatient (CLI) | payer OTHER, SELFPAY ==
[2025-03-06 09:00] VITALS: BP 151/98; PULSE 51; RESP 18; TEMP 36.7; O2SAT 94; BMI 27.4
--- NOTE | 2025-03-06 09:00 | XACV_ITS ---
Exam Room: 2 Ht: 168 cm Wt: 77 kg BSA: 1.91 m2 Gender: Male : 1950 Any Known Allergies: No known allergies Exam Priority: Routine Procedure(s): Procedure Description: Diagnostic procedure Procedure Description: Left Heart Catheterization Procedure Description: Left ventriculography Procedure Description: Venous Graft Catheterization Procedure Description: HYMAN Graft Catheterization Procedure Description: Miscellaneous Procedure Description: Angio-Seal Procedure Description[facility] Diagnostic Cath Status: Elective Diagnostic Findings * Left Main has no disease. * Mid Left Anterior Descending: total occlusion, YENNI: 0 flow. * Left Internal Mammary Artery to Mid Left Anterior Descending graft: patent. * Proximal Right Coronary Artery: total occlusion, YENNI: 0 flow. * Ascending Aorta to Distal Right Coronary Artery graft: total occlusion, YENNI: 3 flow. * Proximal Circumflex: total occlusion, YENNI: 0 flow. * 1st Diagonal: mild 40% stenosis, YENNI: 3 flow. * Ascending Aorta to First Obtuse Marginal Branch Segment graft: patent. * Sequential SVG graft from First Obtuse Marginal Branch Segment to Second Obtuse Marginal Branch Segment: patent. * Second Obtuse Marginal Branch Segment: total occlusion, YENNI: 3 flow. * Four grafts visualized. * Coronary angiography shows right dominance. Conclusions 1. There is total occlusion coronary artery disease with three vessel disease. 2. Four coronary grafts visualized: three grafts patent, and one graft occluded. 3. The apex, mid posterior, mid septum, anterolateral, mid inferior moore are hypokinetic. 4. All other visualized moore normal. 5. Mild left ventricular systolic dysfunction. Ejection fraction of 45%. Recommendations * Continue current medical management and risk factor modification. Diagnostic RX Recommendation: medical therapy and/or counseling Ventriculography Ejection Fraction: 45.0 % Pressures Phase:Rest AO : 142 / 56 ( 81 ) @ 12:39:00 PM 171 / 63 ( 109 ) @ 12:54:00 PM 174 / 65 ( 110 ) @ 12:54:00 PM LV : 174 / -1 / 13 @ 12:53:00 PM 182 / 0 / 15 @ 12:54:00 PM 186 / -2 / 15 @ 12:54:00 PM Valves Phase:DefaultPhase AV : 9.0 @ 12:05:23 PM 9.0 @ 12:05:23 PM AV Mean Gradient: 8.0 @ 12:05:23 PM 8.0 @ 12:05:23 PM Clinical Evaluation EBL: 5mL-10mL Procedural Details Procedure Consent Obtained. Pre-Procedure Time Out. Identified patient by full name and date of as verbalized by the patient/guarantor. Does the consent match the physician's order: Yes. Accurate & Complete Informed Consent: Yes. Inpatient/Outpatient History & Physical on Chart: Yes. If H&P is completed, is and addenduem needed: No. Visualize and Verify Site with Patient/Guarantor: N/A. Relevant Radiology Images available: Yes. The risks, benefits, and alternatives of sedation and/or procedure were discussed by physician. The patient agrees to continue. Procedure started. [facility] Clinical Fraility Score: 5: Mildly Frail. 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 Chest Pain Symptom Assessment: Typical Angina Symptoms. Cardiovascular Instability: No. Correct patient, site and procedure confirmed by cath team. PERRLA. Strong, equal hand quality control checker bilaterally. Lungs clear x 5 lobes. IV Site on Arrival: 20 gauge in the left anticubital. IV Fluids: 0.9% NaCl at KVO. 0 mL infused prior to microbiology lab technician. Pre Procedural Pulses: bilateral dorsalis pedis was Doppled. Pre Procedural Pulses: right posterior tibial was 2+. Pre Procedural Pulses: bilateral posterior tibial was Doppled. Pre Procedural Pulses: bilateral radial was 3+. Oxygen started at 2liters/min via nasal canula. right groin was prepped with chloroprep then draped in the usual sterile fashion. right radial was prepped with chloroprep then draped in the usual sterile fashion. Physician notified. Baseline sample Acquired. HR: 0 BPM. Patient's family unavailable. Equipment: 6F - Femoral. Cardiac Cath Pack. ACIST Manifold Kit Model BT 2000. Heparinized Saline (2 units/mL), 1000 mL bag. Kit, Micropuncture. Physician arrived. Physician scrubbed in. Immediate Pre-Procedure Time Out. Correct Patient: Yes; Correct Procedure: Yes; Correct Site: Yes; Correct Patient Position: Yes; Correct Supplies: Yes; Dried Flammable Prep: Yes; Blood Products Available: N/A;. Lidocaine 1% infiltrated to the right groin. Arterial access obtained with micropuncture set. A Right femoral angiogram was performed to determine safe placement of closure device. A 5 portuguese JL4 catheter in over wire. Multiple views taken of left coronary artery. Catheter removed over the standard wire. A 5 portuguese JR4 catheter in over wire. Catheter redirected to the SVG --> Circumflex. SVG's to Circumflex visualized. Catheter redirected to the SVG --> RCA. SVG's to RCA visualized. Catheter redirected to the HYMAN --> LAD. HYMAN to LAD visualized. Catheter removed over the standard wire. A 5 portuguese Angled Pig catheter in over wire. EDP Sample taken: LV 174/-2,13; HR: 61 BPM; SpO2: 96%. LV gram performed in MORALES @ 10 mL/second for a total of 30 mL. EDP Sample taken: LV 182/-1,15; HR: 69 BPM; SpO2: 96%. Pullback taken: LV 186/-3,15; AO 171/63(109); Mean: 8mmHg, Peak to Peak: 9mmHg, SEP: 21sec/min; HR: 62 BPM; SpO2: 95%. Catheter removed over the standard wire. A Angio-Seal VIP (St. Rj) was successful obtaining hemostatsis at the Right Femoral artery insertion site. Angioseal placed without complications. No signs or symptoms of hematoma noted. Sterile dressing applied per usual sterile fashion. LOT # [id number]. Exp. . Post Procedure: Pulses reassessed and unchanged. PERRLA. Strong, equal hand quality control checker bilaterally. No VTE prophylaxis required. Medication's Wasted: Lidocaine 1% = 10 mL. Medication's Wasted: Heparin = 1000 units. Medication's Wasted: Other = Versed 1 mg. Medication's Wasted: Other = Fentanyl 50 mcg. Total IV fluids: 35 mL. Post-op diagnosis: Non-obstructive CAD. Complications: none. Estimated blood loss: 5mL-10mL. Responsiveness - Normal response to verbal stimuli; alert and oriented, PERRLA. Airway - Unaffected, no intervention required; spontaneous ventilation. Circulation: W/N/L, pulses unchanged. Nausea/Vomiting: No. Dr. Carlin scrubbed out. right groin was prepped with chloroprep. Vital chart was stopped. Procedure completed. Patient transferred by bed to 1st floor. Access Site Site: Right Femoral artery Sheath Size: 6 Fr Hemostasis Method: Angio-Seal VIP (St. Rj) Hemostasis Success: Successful Procedure Medications Start: 11:28 AM Stop: 11:28 AM Medication: Versed Amount: 1 mg Route: I.V. Start: 11:28 AM Stop: 11:28 AM Medication: Fentanyl Amount: 50 mcg Route: I.V. I, the attending physician, have reviewed and verified all procedure medications. Yes, all medications given per verbal order History/Risk Factors Hypertension: Yes Dyslipidemia: Yes Peripheral Arterial Disease (PAD): Yes Myocardial Infarction ([place]): No Obesity: No Renal Disease: No Tobacco Use: Former Prior Interventions PCI: No CABG: No Valve Surgery: No Report Signatures Finalized by Elisa Carlin MD on 03/20/2025 09:10 PM
[2025-03-06 09:22] LABS: Hematocrit 34.9 % (37-53); Hemoglobin 10.70 g/dL (11.27-16.99); Mean Corpuscular HGB Conc 30.7 g/dL (30-55); Mean Corpuscular Hemoglobin 31.1 pg (27-33); Mean Corpuscular Volume 101.5 fl (82-101); Nucleated Red Blood Cells % 0 %; Platelet Count 141 10^3/cmm (157-399); Red Blood Count 3.44 10^6/uL (3.85-5.65); White Blood Count 6.35 10^3/uL (3.29-11.43)
[2025-03-06 09:43] LABS: Anion Gap 13.3 (5-19); Blood Urea Nitrogen 21 mg/dL (8-23); Calcium 9.1 mg/dL (8.5-10.5); Carbon Dioxide 26 mmol/L (22-29); Chloride 114 mmol/L (98-107); Glucose 98 mg/dL (65-115); Osmolality Calculated 311 mOsm/kg (285-295); Potassium 4.3 mmol/L (3.5-5.1); Sodium 149 mmol/L (136-145)
--- NOTE | 2025-03-06 11:15 | W.PM.OPSFHP ---
Same Day Surgery H&P Indication for Procedure/HPI DATE OF PROCEDURE: March 06, 2025 CHIEF COMPLAINT/INDICATIONFOR SURGICAL PROCEDURE: Abnormal stress test Preop clearance Chest pressure History of coronary artery bypass surgery in 1999 History of PCI 74-year-old male past medical history significant for hypertension hyperlipidemia peripheral arterial disease had coronary artery bypass surgery in 1999 and PCI after that underwent stress test for chest pressure and preop clearance noted to be abnormal it is the reason patient is here for left heart catheterization. PREOP DIAGNOSIS: Chest pressure abnormal stress test PLANNED PROCEDURE: Operation Date: 03/06/25 10:00 Proposed Procedures p Cardiac Catheterization - [facility] w/wo LV & Coros(Left) - Elisa Carlin MD Medications/Allergies* Home Medications ?Medication ?Instructions ?Recorded ?Confirmed ?Type atorvastatin 80 mg tablet 80 mg PO QPM 07/23/23 03/05/25 History carvedilol 6.25 mg tablet 3.125 mg PO BID 07/23/23 03/05/25 History cholecalciferol (vitamin D3) 25 25 mcg PO DAILY 07/23/23 03/05/25 History mcg (1,000 unit) tablet cilostazol 100 mg tablet 100 mg PO BID 07/23/23 03/05/25 History clopidogrel 75 mg tablet 75 mg PO DAILY 07/23/23 03/05/25 History ferrous sulfate 325 mg (65 mg 162.5 mg PO QAM 07/23/23 03/05/25 History iron) tablet lisinopril 20 mg tablet 30 mg PO DAILY 07/23/23 03/05/25 History pantoprazole 40 mg tablet,delayed 40 mg PO QAM 07/23/23 03/05/25 History release pregabalin 75 mg capsule (Lyrica) 75 mg PO BID 07/23/23 03/05/25 History baclofen 10 mg tablet 10 mg PO BID Muscle Spasm 01/08/25 03/05/25 History Allergies/Adverse Reactions Allergy/AdvReac Type Severity Reaction Status Date / Time No Known Allergies Allergy Verified 02/11/25 13:26 Current Medications: Generic Name Dose Route Start Last Admin Trade Name Freq PRN Reason Stop Dose Admin Sodium Chloride 1,000 mls @ 50 mls/hr 03/06/25 09:00 03/06/25 09:41 Sodium Chloride 0.9% IV 03/07/25 04:59 Not Given .Q20H ONE Pertinent History/Comorbid Conditions* Medical History (Updated 02/26/25 @ 09:33 by Yumiko Haque LPN) Immunization counseling High risk medication use Polyarthralgia Anxiety Acute anxiety Anemia CAD (coronary artery disease) History of hypertension Hyperlipidemia Abdominal hernia Claudication PAD (peripheral artery disease) Stenosis of artery of left lower extremity Fall at home Recurrent right knee instability Osteoarthritis of right knee Surgical History (Updated 09/17/24 @ 18:01 by Abelino Hess MD) H/O gastric bypass x4 History of eye surgery History of neck surgery x2 History of shoulder surgery left History of cholecystectomy Previous back surgery x5 S/P hernia surgery Family History (Updated 09/17/24 @ 09:38 by Tona Allen LPN) Anemia Cancer Hypertension Denies family history of Lupus (systemic lupus erythematosus) Rheumatoid arthritis Diabetes CAD (coronary artery disease) Migraines Chronic kidney disease (CKD) Stroke Social History Smoking and tobacco/nicotine status: former use of tobacco/nicotine Pertinent Exam Findings alert, oriented x 3, clear to auscultation bilaterally, regular rate & rhythm, operative site marked and procedure specific exam findings Conscious Sedation Assessment PATIENT ASSESSED PRIOR TO SEDATION, WITH NO CHANGE NOTED: Yes AIRWAY EVAL/ANESTHESIA PLAN: ASA II, Risks, benefits & alternatives of sedation and/or procedure discussed and Patient agrees to continue as planned ADDITIONAL INFORMATION: All risk-benefit and alternative for the procedure has been explained to the patient. Patient understand 2% risk of stroke major bleed. Patient restand 5% risk of minor bleeding oozing infection hematoma pseudoaneurysm urgent or emergent vascular bypass surgery contrast-induced nephropathy. Patient agrees to it and would like to proceed with it. Recommendations Surgery/Procedure today Coding Level of Care Code Acute Code for Chg Fwd
[2025-03-06 12:00] VITALS: BP 146/89; PULSE 47; RESP 16; TEMP 36.1; O2SAT 92
[2025-03-06 12:04] VITALS: BP 156/60; PULSE 48; RESP 16; O2SAT 95
--- NOTE | 2025-03-06 12:30 | PC.NURSE ---
Arrived from [facility], dressing to R groin clean dry and intact
--- NOTE | 2025-03-06 16:07 | PC.NURSE ---
Patient able to stand and sit on side of bed, uses a WC to move around at home reported feeling to be at baseline
--- NOTE | 2025-03-06 16:41 | PC.NURSE ---
iv dc, daughter at bedside, discharge instructions educated to patient no questions or concerns expressed. out of facility wit ready transport to home
== END 2025-03-06 16:44 | disposition home or self-care (01) ==
LOC: CCL 08:53 → CSU 12:30
PROVIDERS: PCP Family Medicine; Visit Provider Internal Medicine Cardiovascular Disease
DX: I25.10 Atherosclerotic heart disease of native coronary artery without angina pectoris (principal); I25.82 Chronic total occlusion of coronary artery; I10 Essential (primary) hypertension; E78.5 Hyperlipidemia, unspecified; I73.9 Peripheral vascular disease, unspecified; Z87.891 Personal history of nicotine dependence; K21.9 Gastro-esophageal reflux disease without esophagitis; D64.9 Anemia, unspecified
CPT/HCPCS: 36415; 80048; 85025; 93459; 99152; 99153; C1760; C1769; C1887; C1894; G0269; J1644; J2250; J3010; J7030; J9999; Q0163; Q9967

== ENCOUNTER → 2025-03-26 12:56 | Outpatient (BNVA) | payer OTHER, SELFPAY | PROVIDERS: PCP Family Medicine; Visit Provider Internal Medicine Rheumatology | DX: M06.00 Rheumatoid arthritis without rheumatoid factor, unspecified site (principal); Z79.899 Other long term (current) drug therapy; Z71.85 Encounter for immunization safety counseling | CPT/HCPCS: 99214 ==

== ENCOUNTER 2025-04-10 10:00 | Outpatient (CLI) | payer OTHER, SELFPAY ==
--- NOTE | 2025-04-10 10:11 | US_ITS ---
WS: [id number] TESTICULAR ULTRASOUND HISTORY: INFLAMMATORY DISORDERS OF SCROTUM COMPARISON: 06/15/2023 TECHNIQUE: Real-time and color Doppler imaging utilized to perform a testicular ultrasound. Right testicle: 3.6 cm x 2.2 cm x 2.7 cm. Normal size and echogenicity. No mass or torsion. Increased vascularity throughout the RIGHT testicle as compared to the LEFT testicle. There is normal arterial and venous flow present. Small hydrocele. Right epididymis: Epididymis is enlarged and heterogeneous. There are several small spermatoceles in the epididymal head. The entire epididymis appears enlarged and heterogeneous with only minimal increased vascularity. Left testicle: 3.5 cm x 2.7 cm x 3.4 cm. Normal size and echogenicity. No mass or torsion. Normal color Doppler is present throughout. Systolic and diastolic velocities are both present. Small hydrocele. Left epididymis: Normal epididymis with no increased vascularity. US/US scrotum [id number] IMPRESSION: 1. Increased vascularity within the RIGHT testicle and heterogeneous, enlarged RIGHT epididymis. Findings are most consistent with a mild acute RIGHT orchiti s and RIGHT epididymitis. These findings are new since 06/15/2023. 2. No testicular mass. 3. Small bilateral hydroceles.
== END 2025-04-10 10:01 | disposition home or self-care (01) ==
LOC: RAD 10:01
PROVIDERS: PCP Family Medicine; Visit Provider Nurse Practitioner Family
DX: N43.42 Spermatocele of epididymis, multiple (principal)
CPT/HCPCS: 76870

== ENCOUNTER 2025-04-12 12:48 | Outpatient (CLI) | payer OTHER, SELFPAY ==
--- NOTE | 2025-04-12 13:56 | CT_ITS ---
WS: [id number] CT ABDOMEN AND PELVIS WITH CONTRAST HISTORY: RIGHT LOWER ABD PAIN TECHNIQUE: Imaging performed of the abdomen and pelvis with IV contrast. Single phase imaging of the abdomen. Coronal and sagittal reformats are submitted. All CT scans at [facility] use at least one of these dose optimization techniques: automated exposure control; mA and/or kV adjustment per patient size (includes targeted exams where dose is matched to clinical indication); or iterative reconstruction. IV CONTRAST: Omnipaque 350; 100 mL IV. Oral contrast: No DLP: 368.43 mGy.cm COMPARISON: 07/23/2023 Lower thorax: Lobulated soft tissue. Fissural nodule measuring 7 x 5 mm in the LEFT lower lobe which is decreased in size since 04/27/2023. Heart is normal size. Small hiatal hernia. Liver/biliary system: Normal size liver with scattered hypodensities which are probably cysts. No intrahepatic duct dilatation. No mass. Normal portal vein. Gallbladder: Status post cholecystectomy. Pancreas: Normal size pancreas and pancreatic duct. No adjacent inflammation. Spleen: Normal size with granuloma. Adrenal glands: Normal. Right kidney: Normal size kidney with mild cortical thinning. 5 mm cyst superior pole. No solid mass or obstruction. Left kidney: Mild cortical thinning. Normal size with no solid mass or obstruction. Normal ureter. Aorta: Moderate atherosclerotic plaque within the aorta. Mildly ectatic aorta to 2.8 cm. Calcified plaque extends into the iliac arteries. Lymphadenopathy: None. Free fluid: None. GI tract: No obstruction. Normal appendix. Colon is tortuous but no mass identified. No colitis. Abdominal wall: Unremarkable abdominal wall. No hernia. Pelvis: No free fluid or adenopathy within the pelvis. Urinary bladder is minimally distended. Mildly heterogeneous prostate gland. No adenopathy. Bones: Advanced degenerative disc disease and osteophytosis in the lumbar spine. No acute fractures. CT/CT abdomen pelvis w con* [id number] IMPRESSION: 1. No acute abdominal or pelvic abnormalities. 2. No GI tract obstruction. 3. Extensive atherosclerosis aorta and iliac arteries. 4. No renal obstruction. 5. Prior cholecystectomy.
[2025-04-12] MEDS: iohexol 350 mg/mL 500 mL Btl (per mL) IV (14:09)
== END 2025-04-12 12:49 | disposition home or self-care (01) ==
LOC: RAD 12:49
PROVIDERS: PCP Family Medicine; Visit Provider Nurse Practitioner Family
DX: R10.31 Right lower quadrant pain (principal); I70.0 Atherosclerosis of aorta; I70.203 Unspecified atherosclerosis of native arteries of extremities, bilateral legs; K44.9 Diaphragmatic hernia without obstruction or gangrene
CPT/HCPCS: 74177

== ENCOUNTER → 2025-04-19 10:44 | Outpatient (BNVA) | payer OTHER, SELFPAY | PROVIDERS: PCP Family Medicine; Visit Provider Nurse Practitioner | DX: M17.11 Unilateral primary osteoarthritis, right knee (principal); M23.51 Chronic instability of knee, right knee | CPT/HCPCS: 20610; 73560; 73565; 99214; J1100; J2795; J3301; J9999 ==

== ENCOUNTER 2025-05-08 12:50 | Emergency (ER) | payer OTHER, SELFPAY ==
--- NOTE | 2025-05-08 12:49 | ECG_ITS ---
[facility] [facility] Test Date: 2025-05-08 Pat Name: Gael Nevarez Department: Room: Gender: Male Insulation Supervisor: : 1950 Requested By: Paramjit Barnett Order Number: [id number] Wing MD: Salvatore Watson M.D. Measurements Intervals [place] Rate: 56 P: 83 NH: 174 QRS: 67 QRSD: 95 T: 83 QT: 402 QTc: 389 Interpretive Statements SINUS BRADYCARDIA NONSPECIFIC ST & T-WAVE ABNORMALITY Compared to ECG 01/08/2025 15:46:15 Ventricular premature complex(es) no longer present T-wave abnormality still present Electronically Signed On 05-08-2025 20:04:24 PLANNED GIVING OFFICER by Salvatore Watson M.D. [email or web address]
[2025-05-08 12:50] VITALS: BP 130/70; PULSE 60; RESP 18; TEMP 36.6; O2SAT 95; BMI 28.2
--- NOTE | 2025-05-08 12:50 | XR_ITS ---
WS: [id number] Exam: XR chest 1V portable [id number] Date/Time of Exam: 05/08/2025 1:05 PM Reason For Exam: dyspnea/cough Comparison 11/21/2024. Lungs are fully inflated and clear. Heart size is normal. The mediastinum is normal in contour. Status post CABG surgery. Old proximal LEFT humeral fracture with hardware. XR/XR chest 1V portable [id number] IMPRESSION: 1. No acute cardiopulmonary finding.
--- OUTSIDE RECORDS SUMMARY | 2025-05-08 13:00 | XMS_ITS | Clinical Summary ---
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901 - [id number] Implanted:Qty: 1 on 07/26/2014 by Jeff Frank MD at [facility] Plate SYNTHES STRATEC 241.901 / [id number] / Screw [address] 3.5x32mm 204.832 - [id number] Implanted:Qty: 1 on 07/26/2014 by Jeff Frank MD at [facility] Screw [employer]ES [employer]ATEC 204.832 / [id number] / Screw St Loc Stdrv 3.5x32mm 212.112 - [id number] Implanted:Qty: 1 on 07/26/2014 by Jeff Frank MD at [facility] Screw [employer]ATEC 212.112 / [id number] / Screw St Loc Stdrv 3.5x42mm 212.118 - [id number] Implanted:Qty: 2 on 07/26/2014 by Jeff Frank MD at [facility] Screw [employer]ATEC 212.118 / [id number] / Screw St Loc Stdrv 3.5x50mm 212.121 - [id number] Implanted:Qty: 2 on 07/26/2014 by Jeff Frank MD at [facility] Screw [employer]ATEC 212.121 / [id number] / Screw St Loc Stdrv 3.5x48mm 212.120 - [id number] Implanted:Qty: 1 on 07/26/2014 by Jeff Frank MD at [facility] Screw [employer]ATEC 212.120 / [id number] / Screw St Loc Stdrv 3.5x55mm 212.123 - [id number] Implanted:Qty: 2 on 07/26/2014 by Jeff Frank MD at [facility] Screw [employer] 212.123 / [id number] / Screw St Loc Stdrv 3.5x34mm 212.113 - [id number] Implanted:Qty: 1 on 07/26/2014 by Jeff Frank MD at [facility] Screw [employer] 212.113 / [id number] / Insurance MEDICARE PART A [place] B [place] Advance Directives For more information, please contact: [phone] * Full Code (Latest Code Status on File) Date Activated Date Inactivated Comments 07/26/2014 1:49 PM 08/01/2014 9:34 PM * Full Code Date Activated Date Inactivated Comments 07/23/2014 5:59 PM 07/24/2014 9:51 PM Care Teams Merchandise Deliverer Relationship Specialty Start Date End Date Anitha Miller MD PCP - General Ui Application Developer 07/22/14
--- OUTSIDE RECORDS SUMMARY | 2025-05-08 13:00 | XMS_ITS | Encounter Summary ---
Author Organization [employer] Address 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
--- OUTSIDE RECORDS SUMMARY | 2025-05-08 13:00 | XMS_ITS | Encounter Summary ---
Author Organization [facility] Address [address] Orozco: [place] [address] Care Team Providers Care Ambulance Assistant Name Role Phone Anitha Miller MD Primary Care Provider Unavailab le Encounter Details Date Type Department Care Team (Late st Contact Info) Description 08/12/2003 Inpatient [facility] [place], Jeison Amezquita MD [address] [place] [phone] SUBENDO FIRST EPISODE CARE (CMS/[facility]) (Primary Dx) Social History Tobacco Use Types Packs/Day Years Used Date Smoking Tobacco: Never Assessed Sex and Gender Information Value Date Recorded Sex Assigned at Not on file 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
--- OUTSIDE RECORDS SUMMARY | 2025-05-08 13:00 | XMS_ITS | Clinical Summary ---
Author Organization [facility] Address [address] Attn: [place] [address] Care Team Providers Care Tapeman Name Role Phone Anitha Miller MD Primary [...] Encounters Date Type Department Care Team Description 05/07/2025 External Device Data STL ABSTRACTION Provider, Abstract 04/02/2025 External Device Data STL ABSTRACTION Provider, Abstract 03/27/2025 Telephone [facility] [place] [address] [place] [address] Gael Allen MD Documentation Only 03/15/[address] [facility] [place] [place] [address] [place] [address] Gael Allen MD 03/12/2025 External Device Data STL ABSTRACTION Provider, Abstract 03/01/2025 2:15 PM CDT [facility] [place] [address] [place] [address] Gael Allen MD Scrotal abscess (Primary Dx) 03/01/2025 Chart Note [facility] [place] [address] [place] [address] Julianne Willoughby LPN 03/01/2025 Orders Only [facility] [place] [address] [place] [address] Julianne Willoughby NUTRITIONALIST Scrotal abscess (Primary Dx) from Last 3 Months Family History Medical [...] on file 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 Gender Identity Not on file Sexual Orientation Not on file Last Filed Vital Signs Vital Sign Reading Time Taken Comments Blood Pressure 143/75 10/23/2014 3:38 PM CDT 127 /64 Pulse 60 10/23/2014 3:38 PM CDT 60 Temperature 36.7 C (98 F) 08/01/2014 3:00 PM VEST TAILOR Respiratory Rate 16 08/01/2014 3:00 PM VEST TAILOR Oxygen Saturation - - Inhaled Oxygen Concentration - - Weight 75.3 kg (166 lb) 10/23/2014 3:38 PM CDT Height 170.2 cm (5' 7 ) 10/23/2014 3:38 PM CDT Body Mass Index 26 10/23/2014 3:38 PM CDT Plan of Treatment Health Maintenance Due Date Last Done Comments COLORECTAL SCREENING 11/15/1996 Colorectal Cancer Screening 11/15/1996 FIT-DNA Q 3 years 11/15/1996 FIT/FOBT Q 1 year 11/15/1996 Flex Sig/CT Colonography Q 5 years 11/15/1996 INFLUENZA VACCINE (#1) 2025 , 03/31/2022, 04/15/2021, Additional history exists RSV VACCINE (60+ or ) (1 - 1-dose 75+ series) 11/15/2026 DTAP/TDAP/TD VACCINES (5 - T d or Tdap) 02/26/2035 02/26/2025, 02/14/2017, 06/27/2014, Additional history exists ZOSTER VACCINE Completed 03/25/2023, 03/28, 01/08/2021 PNEUMOCOCCAL VACCINE 50+ YEARS Completed 0 02/26/2025, 02/24/2023, 04/07/2018, Additional history exists Medical Devices Implanted Type Area Shot Tube Machine Tender Device Identifier Shelf Expiration Date Model / Serial / Lot Plate Lcp Humerus 3hole 241.901 - [id number] Implanted:Qty: 1 on 07/26/2014 by Jeff Frank MD Plate [employer]AT[employer] 241.901 / [id number] / Screw St 3.5x32mm 204.832 - [id number] Implanted:Qty: 1 on 07/26/2014 by Jeff Frank MD Screw [employer]ATEC 204.832 / [id number] / Screw St Loc Stdrv 3.5x32mm 212.112 - [id number] Implanted:Qty: 1 on 07/26/2014 by Jeff Frank MD Screw [employer]AT[employer] 212.112 / [id number] / Screw St Loc Stdrv 3.5x34mm 212.113 - [id number] Implanted:Qty: 1 on 07/26/2014 by Jeff Frank MD Screw [employer]AT[employer] 212.113 / [id number] / Screw St Loc Stdrv 3.5x42mm 212.118 - [id number] Implanted:Qty: 2 on 07/26/2014 by Jeff Frank MD Screw [employer] 212.118 / [id number] / Screw St Loc Stdrv 3.5x48mm 212.120 - [id number] Implanted:Qty: 1 on 07/26/2014 by Jeff Frank MD Screw [employer] 212.120 / [id number] / Screw St Loc Stdrv 3.5x50mm 212.121 - [id number] Implanted:Qty: 2 on 07/26/2014 by Jeff Frank MD Screw [employer]AT[employer] 212.121 / [id number] / Screw St Loc Stdrv 3.5x55mm 212.123 - [id number] Implanted:Qty: 2 on 07/26/2014 by Jeff Frank MD Screw [employer]ATEC 212.123 / [id number] / Insurance [facility] [id number] * Guarantor: [employer] Account Type Relation to Patient Date of Phone Billing Address Corporate Other DEFAULT ADDRESS [address] [place] [employer] Care Teams Tapeman Relationship Specialty Start Date End Date Anitha Miller MD NO ADDRESS ON FILE PCP - General Medical Assembler 07/22/14 Mary Sahu [address] [place] [address] Referring Physician 04/19/24
--- OUTSIDE RECORDS SUMMARY | 2025-05-08 13:00 | XMS_ITS | Encounter Summary ---
Author Organization [facility] Address [address] [place] [address] Care Team Providers Care Bouffant Curtain Machine Tender Name Role Phone Anitha Miller MD Primary Care Provider Unavailab le Encounter Details Date Type Department Care Team (Late st Contact Info) Description 01/01/2004 Emergency [facility] Emergency Department [address] 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
--- OUTSIDE RECORDS SUMMARY | 2025-05-08 13:00 | XMS_ITS | Encounter Summary ---
Author Organization [facility] Address [address] [place] [address] Care Team Providers Care Television Audio Engineer Name Role Phone Anitha Miller MD Primary Care Provider Unavailab le Encounter Details Date Type Department Care Team (Late st Contact Info) Description 12/16/2014 Ancillary Orders [facility] - [facility] [address] [place] [phone] Jaime Qiu MD [address] [place] [phone] Pain (Primary Dx) Social History Tobacco Use Types Packs/Day Years Used Date Smoking Tobacco: Former Cigarettes Q uit: 08/14/2007 Smokeless Tobacco: Never Alcohol Use Standard Drinks/Week Comments Yes 0 (1 standard drink = 0.6 oz pur e alcohol) Sex and Gender Information Value Date Recorded Sex Assigned at Not on file 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
--- OUTSIDE RECORDS SUMMARY | 2025-05-08 13:00 | XMS_ITS | Encounter Summary ---
Author Organization [facility] Address [address] [place] [address] Care Team Providers Care Guidance Director Name Role Phone Anitha Miller MD Primary Care Provider Unavailab le Encounter Details Date Type Department Care Team (Latest Contact Info) Description 09/17/2003 Outpatient Historical [facility] Cardiac Thoracic Vascular Surg [place] [address] [address] Jeison Johnson II, MD [address] [place] [phone] CORON ATHEROSCL ILIAMNA CORON VESSEL (Primary Dx) Social History Tobacco Use Types Packs/Day Years Used Date Smoking Tobacco: Never Assessed Sex and Gender Information Value Date Recorded Sex Assigned at Not on file 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
[2025-05-08 13:06] LABS: Hematocrit 37.3 % (37-53); Hemoglobin 11.70 g/dL (11.27-16.99); Mean Corpuscular HGB Conc 31.4 g/dL (30-55); Mean Corpuscular Hemoglobin 31.2 pg (27-33); Mean Corpuscular Volume 99.5 fl (82-101); Nucleated Red Blood Cells % 0 %; Platelet Count 152 10^3/cmm (157-399); Red Blood Count 3.75 10^6/uL (3.85-5.65); White Blood Count 5.12 10^3/uL (3.29-11.43)
--- NOTE | 2025-05-08 13:20 | W.ED.EXTPRO ---
HPI - Extremity Problem General: Chief complaint: Extremity Problem,Nontraumatic Stated complaint: weeping edema LLE History of Present Illness: 74-year-old male presents to the emergency room with complaints of lower leg edema for the last month. No fever sweats or chills does have a pretty significant salt intake in the course a day according to family members. He is not on any diuretics. No orthopnea no chest pain no fever sweats chills. He has been sleeping in a recliner because it relieves hip discomfort when he sleeps in the bed. Known history of heart disease. No history of any congestive heart failure. Associated symptoms: Deny chest pain, fever(s) or rash Related Data Home Medications ?Medication ?Instructions ?Recorded ?Confirmed atorvastatin 80 mg tablet 80 mg PO QPM 07/23/23 05/08/25 carvedilol 6.25 mg tablet 3.125 mg PO BID 07/23/23 05/08/25 cholecalciferol (vitamin D3) 25 25 mcg PO DAILY 07/23/23 05/08/25 mcg (1,000 unit) tablet cilostazol 100 mg tablet 100 mg PO BID 07/23/23 05/08/25 clopidogrel 75 mg tablet 75 mg PO DAILY 07/23/23 05/08/25 ferrous sulfate 325 mg (65 mg 162.5 mg PO QAM 07/23/23 05/08/25 iron) tablet lisinopril 20 mg tablet 30 mg PO DAILY 07/23/23 05/08/25 pantoprazole 40 mg tablet,delayed 40 mg PO QAM 07/23/23 05/08/25 release baclofen 10 mg tablet 10 mg PO BID PRN Muscle Spasm 01/08/25 05/08/25 docusate sodium 100 mg capsule 100 mg PO BID 05/08/25 05/08/25 (Colace) sennosides 8.6 mg tablet (senna) 8.6 mg PO DAILY PRN Constipation 05/08/25 05/08/25 Previous Rx's ?Medication ?Instructions ?Recorded hinged knee brace #1 ea 04/23/24 isosorbide mononitrate 30 mg 30 mg PO DAILY #30 tabs 03/06/25 tablet,extended release 24 hr leflunomide 20 mg tablet 20 mg PO DAILY #90 tabs 03/26/25 prednisone 5 mg tablet 5 mg PO DAILY joint pain #90 tabs 03/26/25 pregabalin 150 mg capsule 150 mg PO BID #180 caps 03/26/25 furosemide 40 mg tablet (Lasix) 40 mg PO DAILY #30 tabs 05/08/25 Allergies Allergy/AdvReac Type Severity Reaction Status Date / Time No Known Allergies Allergy Verified 04/19/25 11:07 Review of Systems Const: Denies: fever(s) or chills Card: Denies: chest pain Resp: Denies: dyspnea GI: Denies: abdominal pain : Denies: dysuria, urinary frequency or urinary urgency Musc: Denies: neck pain or back pain Skin/Breast: Denies: rash PFSH ED PFSH: Medical History Immunization counseling High risk medication use Polyarthralgia Anxiety Acute anxiety Anemia CAD (coronary artery disease) History of hypertension Hyperlipidemia Abdominal hernia Claudication PAD (peripheral artery disease) Stenosis of artery of left lower extremity Fall at home Recurrent right knee instability Osteoarthritis of right knee Surgical History H/O gastric bypass x4 History of eye surgery History of neck surgery x2 History of shoulder surgery left History of cholecystectomy Previous back surgery x5 S/P hernia surgery Family History Other Anemia Cancer Hypertension Denies family history of Lupus (systemic lupus erythematosus) Rheumatoid arthritis Diabetes CAD (coronary artery disease) Migraines Chronic kidney disease (CKD) Stroke Social History Smoking and tobacco/nicotine status: former use of tobacco/nicotine Physical Exam Const: COMMON NORMALS: no acute distress GENERAL APPEARANCE: cooperative and comfortable ORIENTATION/CONSCIOUSNESS: Yes awake, Yes oriented to person, Yes oriented to place and Yes oriented to time HENMT: COMMON NORMALS: normocephalic, atraumatic and hearing grossly normal bilaterally HEAD & SCALP: normocephalic and atraumatic Resp: COMMON NORMALS: normal respiratory effort, No retractions, No use of accessory muscles and clear to auscultation bilaterally AUSCULTATION: clear to auscultation bilaterally Cardio: COMMON NORMALS: regular rate, regular rhythm and No murmurs present (Cardio) RATE: regular rate RHYTHM: regular rhythm GI: COMMON NORMALS: Soft to palpation and No hepatosplenomegaly present AUSCULTATION: Yes normoactive bowel sounds PALPATION: Yes Soft to palpation, No Tenderness to palpation present (GI), No Guarding due to palpation present (GI) and Yes No hepatosplenomegaly present Extremity: OTHER: Superficial skin ulcer to the lower legs no full-thickness ulcerations. No signs of infection there is a small amount of serous drainage from the area. Neuro: SENSORIUM/ORIENTATION: Yes oriented to person, Yes oriented to place and Yes oriented to time Skin: COMMON NORMALS: no rashes or lesions noted GENERAL SKIN EXAM: no rashes or lesions noted Course Vital Signs: Vital signs: Vital Signs Temperature 97.8 F 05/08/25 12:50 Pulse Rate 58 L 05/08/25 14:17 Respiratory Rate 18 05/08/25 12:50 Blood Pressure 134/68 05/08/25 14:17 Pulse Oximetry 93 05/08/25 14:17 Oxygen Delivery Me thod Room Air 05/08/25 12:50 MDM - Extremity (Nontraumatic) Medical Decision Making No leukocytosis. Clinically no signs of DVT. He is fluid overloaded. CMP no clinically significant abnormality at this time. Will discharge patient home started Lasix 40 mg daily. Should see primary care doctor within a week will need repeat BMP and possible referral to wound care clinic if is not improving Medical Records I reviewed the patient's medical records. Lab Data I reviewed the patient's lab results. 05/08/25 12:33 05/08/25 12:33 Radiology Impressions Chest X-Ray 05/08/25 12:50 IMPRESSION: 1. No acute cardiopulmonary finding. Laboratory Results WBC 5.12 10^3/uL (3.29-11.43) 05/08/25 12:33 RBC 3.75 10^6/uL (3.85-5.65) L 05/08/25 12:33 Hgb 11.70 g/dL (11.27-16.99) 05/08/25 12:33 Hct 37.3 % (37-53) 05/08/25 12:33 MCV 99.5 fl (82-101) 05/08/25 12: MCH 31.2 pg (27-33) 05/08/25 12:33 MCHC 31.4 g/dL (30-55) 05/08/25 12: RDW 15.0 % (12.1-15.1) 05/08/25 12:33 Plt Count 152 10^3/cmm (157-399) L 05/08/25 12:33 MPV 11.3 fL (7.4-10.4) H 05/08/25 12:33 Neut % (Auto) 84.5 % 05/08/25 12:33 Lymph % (Auto) 10.0 % 05/08/25 12:33 [place] % (Auto) 3.7 % 05/08/25 12: Eos % (Auto) 0.4 % 05/08/25 12: Baso % (Auto) 1.0 % 05/08/25 12: Neut # (Auto) 4.33 10^3/uL (1.8-7.7) 05/08/25 12: Lymph # (Auto) 0.5 10^3/uL (0.8-4.8) L 05/08/25 12:33 [place] # (Auto) 0.2 10^3/uL (0.2-0.9) 05/08/25 12:33 Eos # (Auto) 0.0 10^3/uL (0.0-0.8) 05/08/25 12:33 Baso # (Auto) 0.1 10^3/uL (0.0-0.1) 05/08/25 12: Nucleated RBC % (auto) 0 % 05/08/25 12: Nucleated RBCs # 0.0 /100WBC 05/08/25 12:33 Sodium 144 mmol/L (136-145) 05/08/25 12:33 Potassium 4.8 mmol/L (3.5-5.1) 05/08/25 12:33 Chloride 108 mmol/L (98-107) H 05/08/25 12:33 Carbon Dioxide 26 mmol/L (22-29) 05/08/25 12:33 Anion Gap 14.8 (5-19) 05/08/25 12:33 BUN 17 mg/dL (8-23) 05/08/25 12:33 Creatinine 0.8 mg/dL (0.7-1.2) 05/08/25 12:33 GFR Calculation Not Reportable 05/08/25 12:33 Glucose 112 mg/dL (65-115) 05/08/25 12:33 Calculated Osmolality 300 mOsm/kg (285-295) H 05/08/25 12:33 Lactic Acid 1.5 mmol/L (0.5-2.2) 05/08/25 12:33 Calcium 9.2 mg/dL (8.5-10.5) 05/08/25 12:33 Total Bilirubin 0.3 mg/dL (0.15-1.2) 05/08/25 12:33 AST 11 U/L (0-40) 05/08/25 12:33 ALT 11 U/L (0-41) 05/08/25 12:33 Alkaline Phosphatase 89 U/L (40-130) 05/08/25 12:33 Total Protein 6.1 g/dL (6.6-8.7) L 05/08/25 12:33 Albumin 3.8 g/dL (3.5-5.2) 05/08/25 12:33 Globulin 2.3 g/dL (1.3-4.6) 05/08/25 12:33 All radiology interpretation(s) finalized by discharge ED provider radiology interpretation(s): Chest x-ray normal no acute infiltrates effusions no increased vascular edema Discharge Plan Discharge Patient Disposition: Home Clinical Impression: Lower extremity edema, Skin ulcer of left lower leg Condition: Stable Prescriptions: New furosemide [Lasix] 40 mg tablet 40 mg PO DAILY Qty: 30 0RF No Action leflunomide 20 mg tablet 20 mg PO DAILY Qty: 90 1RF prednisone 5 mg tablet 5 mg PO DAILY Qty: 90 1RF pregabalin 150 mg capsule 150 mg PO BID Qty: 180 1RF (DME) hinged knee brace See Rx Instructions .Route .MEDSUPPLY Qty: 1 0RF Rx Instructions: As directed cilostazol 100 mg Tablet 100 mg PO BID atorvastatin 80 mg Tablet 80 mg PO QPM carvedilol 6.25 mg Tablet 3.125 mg PO BID Rx Instructions: must administer with a meal/food lisinopril 20 mg Tablet 30 mg PO DAILY clopidogrel 75 mg Tablet 75 mg PO DAILY pantoprazole 40 mg Tablet,Delayed Release (Dr/Ec) 40 mg PO QAM ferrous sulfate 325 mg (65 mg iron) Tablet 162.5 mg PO QAM cholecalciferol (vitamin D3) 25 mcg (1,000 unit) Tablet 25 mcg PO DAILY baclofen 10 mg tablet 10 mg PO BID PRN (Reason: Muscle Spasm) isosorbide mononitrate 30 mg tablet extended release 24 hr 30 mg PO DAILY Qty: 30 1RF sennosides [senna] 8.6 mg Tablet 8.6 mg PO DAILY PRN (Reason: Constipation) docusate sodium [Colace] 100 mg Capsule 100 mg PO BID Discharge Orders: Discharge ED (Routine); Ordered 05/08/25 Ordered By: Paramjit Whitlock Referrals: Mary Sahu MD [Primary Care Provider, Family Practice] Discharge Diet: Low Salt Discharge Activity: Increase activity as tolerated Patient Instructions: Opioid Safety, Pain Management, Patient Portal & Lesly Instructions Activity Restrictions/Additional Instructions: [facility]. It is very important that you follow up as instructed or that you return to the Emergency Department should you have concerns or if your condition changes or worsens in any way. Emergency department visits are focused on emergent conditions, in some cases you may require further evaluation on an outpatient basis. You are seen emergency room in light of swelling of your lower extremities. You were given Lasix IV in the emergency room will start you on oral Lasix 40 mg once a day. You should follow-up with your primary care doctor within a week. Apply [id number] topical antibiotic ointment to the wound on your leg and case management make arrangements for you to follow-up with the wound care clinic. (Please note that included in your discharge packet is information concerning opioid safety and pain management. This information is given to all patients were discharged from the ER regardless of their discharge diagnosis or the medicines they usually take or are prescribed.) Print Language: Wolof Coding Level of Care Code ED Thread Dresser for Obey Ochoa
[2025-05-08 13:23] LABS: Lactic Sepsis W/Reflex 1.5 mmol/L (0.5-2.2)
[2025-05-08 13:24] LABS: Alanine Aminotransferase 11 U/L (0-41); Albumin Level 3.8 g/dL (3.5-5.2); Alkaline Phosphatase 89 U/L (40-130); Anion Gap 14.8 (5-19); Aspartate Amino Transferase 11 U/L (0-40); Blood Urea Nitrogen 17 mg/dL (8-23); Calcium 9.2 mg/dL (8.5-10.5); Carbon Dioxide 26 mmol/L (22-29); Chloride 108 mmol/L (98-107); Creatinine Clr Calc Pharmacy 81.4604; Globulin 2.3 g/dL (1.3-4.6); Glucose 112 mg/dL (65-115); Osmolality Calculated 300 mOsm/kg (285-295); Potassium 4.8 mmol/L (3.5-5.1); Sodium 144 mmol/L (136-145); Total Protein 6.1 g/dL (6.6-8.7)
--- NOTE | 2025-05-08 13:48 | PC.PHAR ---
Pt s' family states medications can be sent to [facility] but they must state on the electronic rx or hard copy all [facility] then family can pick them up and [facility] will [facility] them.
[2025-05-08] MEDS: FUROsemide 10 mg/mL SDV 10mL 60 MG IVP (13:53)
[2025-05-08 14:17] VITALS: BP 134/68; PULSE 58; O2SAT 93
== END 2025-05-08 14:28 | disposition home or self-care (01) ==
PROVIDERS: Emergency Provider Family Medicine; PCP Family Medicine
DX: R60.0 Localized edema (principal); L97.921 Non-pressure chronic ulcer of unspecified part of left lower leg limited to breakdown of skin; I25.10 Atherosclerotic heart disease of native coronary artery without angina pectoris; E78.5 Hyperlipidemia, unspecified; Z87.891 Personal history of nicotine dependence
CPT/HCPCS: 36415; 71045; 80053; 83605; 85025; 87040; 93005; 96374; 99285; J1938

== ENCOUNTER 2025-05-15 15:23 | Inpatient (IN) | payer OTHER, SELFPAY ==
[2025-05-15] VITALS (29 sets, daily range): BP systolic 90–132; BP diastolic 35–67; PULSE 59–87; RESP 16–22; TEMP 36.1–36.4; O2SAT 90–100; BMI 33.6
--- NOTE | 2025-05-15 15:47 | ECG_ITS ---
[facility] Test Date: 2025-05-15 Pat Name: Gael Nevarez Department: Room: Gender: Male Health Consultant: : 1950 Requested By: Karon Coleman Order Number: [id number] [place] MD: Rhiannon Denton M.D. Measurements Intervals [place] Rate: 66 P: 56 MO: 152 QRS: 79 QRSD: 102 T: 95 QT: 411 QTc: 431 Interpretive Statements SINUS RHYTHM Compared to ECG 05/08/2025 13:01:36 Sinus bradycardia no longer present T-wave abnormality no longer present Electronically Signed On 05-15-2025 23:53:16 NUCLEAR MEDICINE SUPERVISOR by Rhiannon Denton M.D. [email or web address]
--- NOTE | 2025-05-15 15:47 | XR_ITS ---
WS: [id number] XR chest 1V portable [id number] REASON FOR EXAM: sob FINDINGS: The chest is unchanged compared to 05/08/2025. Sternal sutures. Coronary artery bypass surgery. Mild tortuosity of the thoracic aorta. Normal heart size. Calcified granulomas disease bilaterally. No acute pulmonary parenchymal or pleural abnormality. 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 Postoperative proximal left humerus. Moderate degenerative spondylosis of the thoracic spine. XR/XR chest 1V portable [id number] IMPRESSION: Stable chest without acute abnormality.
--- NOTE | 2025-05-15 16:12 | W.ED.SOB ---
HPI - SOB/Dyspnea General: Chief Complaint: Shortness of Breath/Dyspnea Stated Complaint: Hypotension, neck pain, sob Time Seen by Provider: 05/15/25 15:32 Source: patient and EMS Mode of arrival: EMS Limitations: no limitations History of Present Illness: HPI Narrative: 74-year-old [facility] he states shortness of breath. States he has a history of CHF is been having some lower extremity edema along with some increased dyspnea. He states he supposed be on oxygen at home but is never been set up with it I was able to turn him down to 3 L oxygen here. States he had a chronic cough for years. States has had some slight erythema to his left lower leg. Denies any fevers. states he started on lasix tuesday Related Data Home Medications ?Medication ?Instructions ?Recorded ?Confirmed atorvastatin 80 mg tablet 80 mg PO QPM 07/23/23 05/08/25 carvedilol 6.25 mg tablet 3.125 mg PO BID 07/23/23 05/08/25 cholecalciferol (vitamin D3) 25 25 mcg PO DAILY 07/23/23 05/08/25 mcg (1,000 unit) tablet cilostazol 100 mg tablet 100 mg PO BID 07/23/23 05/08/25 clopidogrel 75 mg tablet 75 mg PO DAILY 07/23/23 05/08/25 ferrous sulfate 325 mg (65 mg 162.5 mg PO QAM 07/23/23 05/08/25 iron) tablet lisinopril 20 mg tablet 30 mg PO DAILY 07/23/23 05/08/25 pantoprazole 40 mg tablet,delayed 40 mg PO QAM 07/23/23 05/08/25 release baclofen 10 mg tablet 10 mg PO BID PRN Muscle Spasm 01/08/25 05/08/25 docusate sodium 100 mg capsule 100 mg PO BID 05/08/25 05/08/25 (Colace) sennosides 8.6 mg tablet (senna) 8.6 mg PO DAILY PRN Constipation 05/08/25 05/08/25 Previous Rx's ?Medication ?Instructions ?Recorded hinged knee brace #1 ea 04/23/24 isosorbide mononitrate 30 mg 30 mg PO DAILY #30 tabs 03/06/25 tablet,extended release 24 hr leflunomide 20 mg tablet 20 mg PO DAILY #90 tabs 03/26/25 prednisone 5 mg tablet 5 mg PO DAILY joint pain #90 tabs 03/26/25 pregabalin 150 mg capsule 150 mg PO BID #180 caps 03/26/25 furosemide 40 mg tablet (Lasix) 40 mg PO DAILY #30 tabs 05/08/25 Allergies Allergy/AdvReac Type Severity Reaction Status Date / Time No Known Allergies Allergy Verified 05/15/25 15:39 Review of Systems Resp: Reports: dyspnea PFSH ED PFSH: Medical History (Updated 05/15/25 @ 18:27 by Karon Coleman MD) Immunization counseling High risk medication use Polyarthralgia Anxiety Acute anxiety Anemia CAD (coronary artery disease) History of hypertension Hyperlipidemia Abdominal hernia Claudication PAD (peripheral artery disease) Stenosis of artery of left lower extremity Fall at home Recurrent right knee instability Osteoarthritis of right knee Surgical History H/O gastric bypass x4 History of eye surgery History of neck surgery x2 History of shoulder surgery left History of cholecystectomy Previous back surgery x5 S/P hernia surgery Family History Other Anemia Cancer Hypertension Denies family history of Lupus (systemic lupus erythematosus) Rheumatoid arthritis Diabetes CAD (coronary artery disease) Migraines Chronic kidney disease (CKD) Stroke Social History Smoking and tobacco/nicotine status: former use of tobacco/nicotine Physical Exam Const: COMMON NORMALS: patient oriented x3 HENMT: COMMON NORMALS: normocephalic and atraumatic HEAD & SCALP: normocephalic and atraumatic Eye: COMMON NORMALS: Equal, round and reactive pupils present and EOMs intact bilaterally PUPIL: Yes Equal, round and reactive pupils present Neck/C-Spine: COMMON NORMALS: full ROM and supple Chest: COMMONS NORMALS: normal inspection of the chest and normal palpation of entire chest wall Resp: COMMON NORMALS: normal respiratory effort, No retractions, No use of accessory muscles and clear to auscultation bilaterally AUSCULTATION: clear to auscultation bilaterally Cardio: COMMON NORMALS: regular rate, regular rhythm and No murmurs present (Cardio) RATE: regular rate RHYTHM: regular rhythm GI: COMMON NORMALS: Normal to inspection, nondistended, normoactive bowel sounds present, Soft to palpation, non-tender and no masses PALPATION: Yes Soft to palpation Extremity: COMMON NORMALS: full ROM NARRATIVE EXTREMITY EXAM: 2+ edema to le Neuro: COMMON NORMALS: patient oriented x3, moves all extremities and no focal motor deficits Psych: COMMON NORMALS: mental status grossly normal, Normal thought process present and cooperative THOUGHT PROCESS: Normal thought process present Skin: COMMON NORMALS: no rashes or lesions noted and no wounds GENERAL SKIN EXAM: no rashes or lesions noted Course Vital Signs: Vital signs: Vital Signs Temperature 97.5 F L 05/15/25 15:31 Pulse Rate 70 05/15/25 17:47 Respiratory Rate 18 05/15/25 16:11 Blood Pressure 102/61 05/15/25 17:47 Pulse Oximetry 95 05/15/25 17:47 Oxygen Delivery Me thod Nasal Cannula 05/15/25 17:47 Oxygen Flow Rate 3 05/15/25 17:47 MDM - SOB/Dyspnea Medical Decision Making 74-year-old male who presented here with dyspnea requiring oxygen. Patient was hypoxic is now requiring 3 L of oxygen here with history of CHF. Differential includes CHF, chronic hypoxia, pulm emboli, pneumonia, pneumothorax. Patient here has no signs of pulm edema on his chest x-ray did interpret his chest x-ray showed no acute abnormalities. Patient has no signs of pulmonary emboli. Likely has some chronic hypoxia along with his CHF. He did start Lasix recently and on his labs does have an elevated creatinine with acute kidney injury likely from dehydration and his Lasix. Did interpret his EKG showed normal sinus rhythm heart rate [address] elevation QRS 102 QTc to 424 is had no chest pain. I did speak to hospitalist Dr. Santiago who will admit at this time. Medical Records I reviewed the patient's medical records. Lab Data I reviewed the patient's lab results. 05/15/25 16:22 05/15/25 16:22 Labs/Radiology: Radiology Impressions Chest X-Ray 05/15/25 15:47 IMPRESSION: Stable chest without acute abnormality. Laboratory Results WBC 6.40 10^3/uL (3.29-11.43) 05/15/25 16:22 RBC 3.46 10^6/uL (3.85-5.65) L 05/15/25 16:22 Hgb 10.50 g/dL (11.27-16.99) L 05/15/25 16:22 Hct 34.4 % (37-53) L 05/15/25 16:22 MCV 99.4 fl (82-101) 05/15/25 16:22 MCH 30.3 pg (27-33) 05/15/25 16: MCHC 30.5 g/dL (30-55) 05/15/25 16:22 RDW 14.6 % (12.1-15.1) 05/15/25 16:22 Plt Count 143 10^3/cmm (157-399) L 05/15/25 16:22 MPV 11.4 fL (7.4-10.4) H 05/15/25 16:22 Neut % (Auto) 77.6 % 05/15/25 16:22 Lymph % (Auto) 12.7 % 05/15/25 16:22 [place] % (Auto) 8.0 % 05/15/25 16:22 Eos % (Auto) 0.8 % 05/15/25 16:22 Baso % (Auto) 0.6 % 05/15/25 16:22 Neut # (Auto) 4.97 10^3/uL (1.8-7.7) 05/15/25 16:22 Lymph # (Auto) 0.8 10^3/uL (0.8-4.8) 05/15/25 16:22 [place] # (Auto) 0.5 10^3/uL (0.2-0.9) 05/15/25 16:22 Eos # (Auto) 0.1 10^3/uL (0.0-0.8) 05/15/25 16:22 Baso # (Auto) 0.0 10^3/uL (0.0-0.1) 05/15/25 16: Nucleated RBC % (auto) 0 % 05/15/25 16: Nucleated RBCs # 0.0 /100WBC 05/15/25 16:22 Sodium 142 mmol/L (136-145) 05/15/25 16:22 Potassium 4.7 mmol/L (3.5-5.1) 05/15/25 16:22 Chloride 103 mmol/L (98-107) 05/15/25 16:22 Carbon Dioxide 26 mmol/L (22-29) 05/15/25 16:22 Anion Gap 17.7 (5-19) 05/15/25 16:22 BUN 33 mg/dL (8-23) H 05/15/25 16:22 Creatinine 2.3 mg/dL (0.7-1.2) H 05/15/25 16:22 GFR Calculation Not Reportable 05/15/25 16:22 Glucose 116 mg/dL (65-115) H 05/15/25 16:22 Calculated Osmolality 302 mOsm/kg (285-295) H 05/15/25 16:22 Calcium 8.7 mg/dL (8.5-10.5) 05/15/25 16:22 Total Bilirubin 0.3 mg/dL (0.15-1.2) 05/15/25 16:22 AST 11 U/L (0-40) 05/15/25 16:22 ALT 10 U/L (0-41) 05/15/25 16:22 Alkaline Phosphatase 76 U/L (40-130) 05/15/25 16:22 NT-Pro-B Natriuret Pep 453 pg/mL (0-125) H 05/15/25 16:22 Total Protein 5.6 g/dL (6.6-8.7) L 05/15/25 16:22 Albumin 3.4 g/dL (3.5-5.2) L 05/15/25 16:22 Globulin 2.2 g/dL (1.3-4.6) 05/15/25 16:22 Influenza A (PCR) Negative (Negative) 05/15/25 15:56 Influenza Type B (PCR) Negative (Negative) 05/15/25 15:56 RSV (PCR) Negative (Negative) 05/15/25 15:56 SARS-CoV-2 (PCR) Negative (Negative) 05/15/25 15:56 All radiology interpretation(s) finalized by discharge EKG Data EKG 1: I personally reviewed and interpreted this EKG as follows: EKG Interpretation Date: 05/15/25 EKG interpretation time: 15:40 Interpretation: nsr hr [address] elevation qrs 102 qtc 424 Discharge Plan Discharge Patient Disposition: Admitted As Inpatient Admit Provider: Arnoldo Dodge Clinical Impression: Congestive heart failure, Hypoxia, Acute kidney injury Condition: Stable Coding Level of Care Code ED Sales And Marketing Professional for Obey Ochoa
[2025-05-15] MEDS: FUROsemide 10 mg/mL SDV 4mL 40 MG IVP (16:23)
[2025-05-15 16:37] LABS: Hematocrit 34.4 % (37-53); Hemoglobin 10.50 g/dL (11.27-16.99); Mean Corpuscular HGB Conc 30.5 g/dL (30-55); Mean Corpuscular Hemoglobin 30.3 pg (27-33); Mean Corpuscular Volume 99.4 fl (82-101); Nucleated Red Blood Cells % 0 %; Platelet Count 143 10^3/cmm (157-399); Red Blood Count 3.46 10^6/uL (3.85-5.65); White Blood Count 6.40 10^3/uL (3.29-11.43)
[2025-05-15 16:51] LABS: Respiratory Syncytial Virus Ce NEGATIVE (Negative); SARS-CoV-2 PCR NEGATIVE (Negative)
[2025-05-15 17:06] LABS: Alanine Aminotransferase 10 U/L (0-41); Albumin Level 3.4 g/dL (3.5-5.2); Alkaline Phosphatase 76 U/L (40-130); Anion Gap 17.7 (5-19); Aspartate Amino Transferase 11 U/L (0-40); Blood Urea Nitrogen 33 mg/dL (8-23); Calcium 8.7 mg/dL (8.5-10.5); Carbon Dioxide 26 mmol/L (22-29); Chloride 103 mmol/L (98-107); Globulin 2.2 g/dL (1.3-4.6); Glucose 116 mg/dL (65-115); NT Pro B Type Natriuretic Pept 453 pg/mL (0-125); Osmolality Calculated 302 mOsm/kg (285-295); Potassium 4.7 mmol/L (3.5-5.1); Sodium 142 mmol/L (136-145); Total Protein 5.6 g/dL (6.6-8.7)
--- OUTSIDE RECORDS SUMMARY | 2025-05-15 18:31 | XMS_ITS | Encounter Summary ---
Author Organization [facility] Address [address] [place] [address] Care Team Providers Care Knotting Machine Operator Name Role Phone Anitha Miller MD Primary Care Provider Unavailab le Encounter Details Date Type Department Care Team (Latest Contact Info) Description 09/17/2003 Outpatient Historical [facility] Cardiac Thoracic Vascular Surg [place] [address] [id number] Jeison Johnson II, MD [address] [place] [address] [phone] CORON ATHEROSCL [place] CORON VESSEL (Primary Dx) Social History Tobacco Use Types Packs/Day Years Used Date Smoking Tobacco: Never Assessed Sex and Gender Information Value Date Recorded Sex Assigned at Not on file 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
--- OUTSIDE RECORDS SUMMARY | 2025-05-15 18:31 | XMS_ITS | Encounter Summary ---
Author Organization [facility] Address [address] [place]: Epic [place] [address] Care Team Providers Care Emergency Department Name Role Phone Anitha Miller MD Primary Care Provider Unavailab le Encounter Details Date Type Department Care Team (Late st Contact Info) Description 08/12/2003 Inpatient [facility] [place] Jeison Amezquita MD [address] [place] [address] [phone] 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
--- OUTSIDE RECORDS SUMMARY | 2025-05-15 18:32 | XMS_ITS | Clinical Summary ---
Author Organization 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 Gender Identity Not on file Sexual Orientation Not on file Last Filed Vital Signs Vital Sign Reading Time Taken Comments Blood Pressure 143/75 10/23/2014 3:38 PM CDT 127 /64 Pulse 60 10/23/2014 3:38 PM CDT 60 Temperature 36.7 C (98 F) 08/01/2014 3:00 PM AUTOMOTIVE PORTER Respiratory Rate 16 08/01/2014 3:00 PM AUTOMOTIVE PORTER Oxygen Saturation 94% 08/15/2014 11:12 AM AUTOMOTIVE PORTER Inhaled Oxygen Concentration - - Weight 75.3 [...] series) 11/15/2026 Medical Devices Implanted Type Area Stringing Machine Operator Device Identifier Shelf Expiration Date Model / Serial / Lot Plate Lcp Humerus 3hole 241.901 - [id number] Implanted:Qty: 1 on 07/26/2014 by Jeff Frank MD at [facility] Plate SYNTHES STRATEC 241.901 / [id number] / Screw St 3.5x32mm 204.832 - [id number] Implanted:Qty: 1 on 07/26/2014 by Jeff Frank MD at [facility] Screw [employer]ATEC 204.832 / [id number] / Screw St Loc Stdrv 3.5x32mm 212.112 - [id number] Implanted:Qty: 1 on 07/26/2014 by Jeff Frank MD at [facility] Screw [employer]ATEC 212.112 / [id number] / Screw St Loc Stdrv 3.5x42mm 212.118 - [id number] Implanted:Qty: 2 on 07/26/2014 by Jeff Frank MD at [facility] Screw [employer]ATEC 212.118 / [id number] / Screw St Loc Stdrv 3.5x50mm 212.121 - [id number] Implanted:Qty: 2 on 07/26/2014 by Jeff Frank MD at [facility] Screw [employer]ATEC 212.121 / [id number] / Screw St Loc Stdrv 3.5x48mm 212.120 - [id number] Implanted:Qty: 1 on 07/26/2014 by Jeff Frank MD at [facility] Screw [employer]ATEC 212.120 / [id number] / Screw St Loc Stdrv 3.5x55mm 212.123 - [id number] Implanted:Qty: 2 on 07/26/2014 by Jeff Frank MD at [facility] Screw [employer]AT[employer] 212.123 / [id number] / Screw St Loc Stdrv 3.5x34mm 212.113 - [id number] Implanted:Qty: 1 on 07/26/2014 by Jeff Frank MD at [facility] Screw [employer]ATEC 212.113 / [id number] / Insurance MEDICARE PART A [place] B [place] MED[place] A [place] B [place] Advance Directives For more information, please contact: [phone] * Full Code (Latest Code Status on File) Date Activated Date Inactivated Comments 07/26/2014 1:49 PM 08/01/2014 9:34 PM * Full Code Date Activated Date Inactivated Comments 07/23/2014 5:59 PM 07/24/2014 9:51 PM Care Teams Criminal Defense Lawyer Relationship Specialty Start Date End Date Anitha Miller MD PCP - General Sales Account Coordinator 07/22/14
--- OUTSIDE RECORDS SUMMARY | 2025-05-15 18:32 | XMS_ITS | Clinical Summary ---
Author Organization [facility] Address [address] Attn: [place] [address] Care Team Providers Care Sales Associate Key Holder Name Role Phone Anitha Miller MD Primary [...] Data STL ABSTRACTION Provider, Abstract 03/27/2025 Telephone [facility] [place] [address] Gael Allen MD Documentation Only 03/15/2025 [facility] [place] [address] [place] [address] Gael Allen MD 03/12/2025 External Device Data STL ABSTRACTION Provider, Abstract 03/01/2025 2:15 PM CDT [facility] [address] [place] [address] Gael Allen MD Scrotal abscess (Primary Dx) 03/01/2025 Chart Note [place] [address] [place] [address] Julianne Willoughby LPN 03/01/2025 Orders Only [address] [place] [address] Julianne Willoughby PHOTO OFFSET PRINTER Scrotal abscess (Primary Dx) from Last 3 [...] on file Legal Sex Male 2:33 PM MECHANICAL PRODUCT 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 Gender Identity Not on file Sexual Orientation Not on file Last Filed Vital Signs Vital Sign Reading Time Taken Comments Blood Pressure 143/75 10/23/2014 3:38 PM CDT 127 /64 Pulse 60 10/23/2014 3:38 PM CDT 60 Temperature 36.7 C (98 F) 08/01/2014 3:00 PM MECHANICAL PRODUCT ENGINEER Respiratory Rate 16 08/01/2014 3:00 PM MECHANICAL PRODUCT ENGINEER Oxygen Saturation - - Inhaled Oxygen Concentration [...] history exists Medical Devices Implanted Type Area Patents Examiner Device Identifier Shelf Expiration Date Model / Serial / Lot Plate Lcp Humerus 3hole 241.901 - [id number] Implanted:Qty: 1 on 07/26/2014 by Jeff Frank MD Plate [employer]AT[employer] 241.901 / [id number] / Screw St 3.5x32mm 204.832 - [id number] Implanted:Qty: 1 on 07/26/2014 by Jeff Frank MD Screw [employer]AT[employer] 204.832 / [id number] / Screw St Loc Stdrv 3.5x32mm 212.112 - [id number] Implanted:Qty: 1 on 07/26/2014 by Jeff Frank MD Screw [employer] 212.112 / [id number] / Screw St Loc Stdrv 3.5x34mm 212.113 - [id number] Implanted:Qty: 1 on 07/26/2014 by Jeff Frank MD Screw [employer]AT[employer] 212.113 / [id number] / Screw St Loc Stdrv 3.5x42mm 212.118 - [id number] Implanted:Qty: 2 on 07/26/2014 by Jeff Frank MD Screw [employer] 212.118 / [id number] / Screw St Loc Stdrv 3.5x48mm 212.120 - [id number] Implanted:Qty: 1 on 07/26/2014 by Jeff Frank MD Screw [employer] 212.120 / [id number] / Screw St Loc Stdrv 3.5x50mm 212.121 - [id number] Implanted:Qty: 2 on 07/26/2014 by Jeff Frank MD Screw [employer] 212.121 / [id number] / Screw St Loc Stdrv 3.5x55mm 212.123 - [id number] Implanted:Qty: 2 on 07/26/2014 by Jeff Frank MD Screw [employer] 212.123 / [id number] / Insurance [facility] [id number] [facility] Care Teams Sales Associate Key Holder Relationship Specialty Start Date End Date Anitha Miller MD NO ADDRESS ON FILE PCP - General Brood Hatchery Manager 07/22/14 Mary Sahu [address] [place] [address] Referring Physician 04/19/24
--- OUTSIDE RECORDS SUMMARY | 2025-05-15 18:32 | XMS_ITS | Encounter Summary ---
Author Organization [facility] Address [address] [place] [address] Care Team Providers Care Side Trimmer Name Role Phone Anitha Miller MD Primary Care Provider Unavailab le Encounter Details Date Type Department Care Team (Late st Contact Info) Description 01/01/2004 Emergency [facility] Emergency Department [address] 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
--- OUTSIDE RECORDS SUMMARY | 2025-05-15 18:32 | XMS_ITS | Encounter Summary ---
Author Organization [facility] Address [address] [place] [address] Care Team Providers Care Pre Kindergarten Teacher Name Role Phone Anitha Miller MD Primary Care Provider Unavailab le Encounter Details Date Type Department Care Team (Late st Contact Info) Description 12/16/2014 Ancillary Orders 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
--- NOTE | 2025-05-15 18:48 | P.HP_ITS ---
Providers/Chief Complaint 2 Admitting Physician: Arnoldo Dodge MD Primary Care Provider: Mary Sahu MD Chief Complaint: Hypotension, neck pain, sob History of Present Illness Gael Nevarez is a 74 year old male with a past medical history of ischemic cardiomyopathy, systolic CHF, history of CABG, history of CAD, hypertension, hyperlipidemia who presents to [facility] from the [place] due to low blood pressure. Patient tells me the [place] sent him over because his blood pressures were low, he has been noticing lower extremity edema, more shortness of breath, feeling lightheaded, does have a cough, he has a couple of spots on his legs that have been draining, denies any chest pain, no palpitations does report a cough, no fevers, no chills, no abdominal pain, no diarrhea, he does report taking Lasix, for his shortness of breath, he tells me he lives at home with his daughter, he is in a wheelchair, he does not ambulate much but does transfer, no falls, does report acute on chronic back and neck pain, he has a history of neck surgeries Review of Systems 2 Const: Reports: fatigue and malaise Card: Denies: chest pain Resp: Reports: dyspnea and non-productive cough GI: Denies: abdominal pain : Denies: flank pain Medications/Allergies Home Medications ?Medication ?Instructions ?Recorded ?Confirmed ?Last Taken ?Type atorvastatin 80 mg tablet 80 mg PO QPM 07/23/2305/07/25 History carvedilol 6.25 mg tablet 3.125 mg PO BID 07/23/2306/2005/08/25 History cholecalciferol (vitamin D3) 25 25 mcg PO DAILY 05/08/25 05/08/25 History mcg (1,000 unit) tablet cilostazol 100 mg tablet 100 mg PO BID 07/23/2305/0805/08/25 History clopidogrel 75 mg tablet 75 mg PO DAILY 07/23/2304/2705/08/25 History ferrous sulfate 325 mg (65 mg 162.5 mg PO QAM 07/23/23 05/08/25 05/08/25 History iron) tablet lisinopril 20 mg tablet 30 mg PO DAILY 07/23/2304/2705/08/25 History pantoprazole 40 mg tablet,delayed 40 mg PO QAM 07/23/2 4 05/08/25 05/08/25 History release hinged knee brace #1 ea 04/23/24 05/08/25 Unkn own Rx baclofen 10 mg tablet 10 mg PO BID PRN Muscle Spas m 01/08/25 05/08/25 03/06/25 06:30 History isosorbide mononitrate 30 mg 30 mg PO DAILY #30 tabs 0 03/06/25 05/08/25 05/08/25 Rx tablet,extended release 24 hr leflunomide 20 mg tablet 20 mg PO DAILY #90 tabs 02/2705/08/25 05/08/25 Rx prednisone 5 mg tablet 5 mg PO DAILY joint pain #9 0 tabs 03/26/25 05/08/25 05/08/25 Rx pregabalin 150 mg capsule 150 mg PO BID #180 caps 02/2705/08/25 05/08/25 Rx docusate sodium 100 mg capsule 100 mg PO BID 05/08/25 05/08/25 05/08/25 History (Colace) furosemide 40 mg tablet (Lasix) 40 mg PO DAILY #30 tab s 05/08/25 Unknown Rx sennosides 8.6 mg tablet (senna) 8.6 mg PO DAILY PRN C onstipation 05/08/25 05/08/25 Unknown History Allergies Allergy/AdvReac Type Severity Reaction Status Date / Time No Known Allergies Allergy Verified 05/15/25 15:39 PFSH Acute 2 PFSH: Medical History Immunization counseling High risk medication use Polyarthralgia Anxiety Acute anxiety Anemia CAD (coronary artery disease) History of hypertension Hyperlipidemia Abdominal hernia Claudication PAD (peripheral artery disease) Stenosis of artery of left lower extremity Fall at home Recurrent right knee instability Osteoarthritis of right knee Surgical History H/O gastric bypass x4 History of eye surgery History of neck surgery x2 History of shoulder surgery left History of cholecystectomy Previous back surgery x5 S/P hernia surgery Family History Other Anemia Cancer Hypertension Denies family history of Lupus (systemic lupus erythematosus) Rheumatoid arthritis Diabetes CAD (coronary artery disease) Migraines Chronic kidney disease (CKD) Stroke Social History Smoking and tobacco/nicotine status: former use of tobacco/nicotine Vitals/I&O/Wt Last Vital Signs Temp 97.5 F L 05/15/25 15:31 Pulse 70 05/15/25 17:47 Resp 18 05/15/25 16:11 BP 102/61 05/15/25 17:47 Pulse Ox 95 05/15/25 17:47 O2 Del Method Nasal Cannula 05/15/25 17:47 O2 Flow Rate 3 05/15/25 17:47 Weight last 48 hrs Weight 97.522 kg Physical Exam 2 Const: COMMON NORMALS: no acute distress and patient oriented x3 HENMT: COMMON NORMALS: normocephalic Eye: COMMON NORMALS: Equal, round and reactive pupils present and EOMs intact bilaterally Neck/C-Spine: CERVICAL SPINE: Yes cervical ROM normal Lymph: LYMPHATIC: no lymphadenopathy noted OTHER: JVD 10 cm Resp: COMMON NORMALS: normal respiratory effort, No retractions, No use of accessory muscles and clear to auscultation bilaterally AUSCULTATION: c rackles and wheezes Cardio: COMMON NORMALS: regular rate, regular rhythm, S1 normal heart sound present and S2 normal heart sound present RATE: regular rate RHYTHM: r egular rhythm HEART SOUNDS: S1 normal heart sound present and S2 normal heart sound present GI: COMMON NORMALS: Normal to inspection, nondistended, normoactive bowel sounds present, Soft to palpation and non-tender : COMMON NORMALS: Yes no CVA tenderness Extremity: COMMON NORMALS: no pedal edema Neuro: COMMON NORMALS: patient oriented x3, CN's II-XII intact bilaterally and moves all extremities Psych: COMMON NORMALS: mental status grossly normal Skin: NARRATIVE SKIN EXAM: 2+ pitting edema Left lower extremity, open area of excoriation, with purulent drainage, with surrounding erythema Right lower extremity, areas of superficial excoriation Quick SOFA Score: Respiratory Rate: 18 Blood Pressure: 104/56 Dain Coma Scale: 15 qSOFA Score: 0 If qSOFA score 2 or greater, continue: Blood Pressure Mean: 72 Bilirubin (mg/dl): 0.3 Platelets (x10?/ml): 143 Creatinine (mg/dl): 2.3 Evaluation: Current stage of sepsis: severe sepsis Sepsis stage criteria used: [facility] Sep-1 and Sepsis-3 Crystalloid fluids: less than 30 mL/kg crystalloid fluids ordered Blood cultures ordered: Yes Possible source: s kin/soft tissue Focused Exam: Vital signs: Temp Pulse Resp BP Pulse Ox O2 Del Method O2 Flow Rate 05/15/25 18:52 74 104/56 94 Nasal Cannula 3 05/15/25 17:47 70 102/61 95 Nasal Cannula 3 05/15/25 17:32 87 96/50 94 Room Air 05/15/25 17:30 80 94 Nasal Cannula 3 05/15/25 17:25 86 95/44 94 Nasal Cannula 3 05/15/25 17:00 81 98/35 92 Nasal Cannula 05/15/25 16:30 80 90/48 Nasal Cannula 2 05/15/25 16:21 77 94/47 94 Room Air 05/15/25 16:11 67 18 98 Nasal Cannula 3 05/15/25 15:54 70 107/61 98 Nasal Cannula 05/15/25 15:31 97.5 F L 69 22 H 107/61 98 Nasal Cannula 4 Respiratory exam: positive wheezes Peripheral pulse strength: 2+ Slightly Diminished Peripheral pulse location: Radial and Pedal Skin exam: turgor normal Date exam was performed: 05/15/25 Time exam was performed: 1 8:53 2 Sepsis Screen No Definite Risk Today, 18:52 Respiratory Rate, (12 - 18) 18 breaths/min Today, 16:11 Blood Pressure 104/56 mmHg Today, 18:52 Cobb Coma Scale Score 15 Today, 15:31 Quick SOFA Score 0 Today, 18:52 SOFA Score: 2 Cobb Coma Scale Score 15 Today, 15:31 Blood Pressure Mean 72 mmHg Today, 18:52 Total Bilirubin, (0.15-1.2) 0.3 mg/dL Today, 16:22 Platelet Count, (157-399) 143 10^3/cmm L Today, 16:22 Creatinine, (0.7-1.2) 2.3 mg/dL H Today, 16:22 Data 05/15/25 16:22 05/15/25 16:22 A&P Assessment and plan 1. Cellulitis: 2. Cardiogenic shock: 3. Septic shock: 4. Acute kidney injury: 5. CAD (coronary artery disease): 6. Congestive heart failure: 7. Systolic CHF: 8. Lower extremity edema: Plan: Multifactorial shock - Concerns for septic shock associate with cellulitis - Concerns for cardiogenic shock, given JVD, lower extremity edema, shortness of breath, history of ischemic cardiomyopathy Plan - Has received less than sepsis bolus, due to risk of fluid overload - Start albumin - Start midodrine - Levophed to maintain MAP greater than 65 Concerns for systolic CHF, ischemic cardiomyopathy Plan - Cardiac echo - Serial EKGs, serial troponins, telemetry monitoring - Hold Lasix therapy - Monitor urine output - Levophed to maintain MAP greater than 65 - Will consider Lasix based on clinical progress Cellulitis bilateral extremities - Vancomycin - Zosyn - Venous ultrasound - Blood culture TREVON - Concerns for cardiorenal syndrome - Component of sepsis - Has received fluids - Treatment as above - Will avoid fluid therapy given evidence of fluid overload, systolic CHF History of CAD History of 05/15/2025 Conclusions 1. There is total occlusion coronary artery disease with three vessel disease. 2. Four coronary grafts visualized: three grafts patent, and one graft occluded. 3. The apex, mid posterior, mid septum, anterolateral, mid inferior moore are hypokinetic. 4. All other visualized moore normal. 5. Mild left ventricular systolic dysfunction. Ejection fraction of 45%. - Serial EKGs, serial troponins, tolerated monitoring - Aspirin, Plavix, statin Full code Lovenox for DVT prophylaxis PDMP PDMP Reviewed: Not Reviewed Attestations 2 Medical Necessity Statement*: Patient requires hospitalization for shock, multifactorial, cardiogenic shock, septic shock, cellulitis, ischemic cardiomyopathy, systolic CHF, inpatient, greater than 2 midnights, requiring ICU admission Diagnoses Cellulitis L03.90 Cardiogenic shock R57.0 Septic shock A41.9; R65.21 Acute kidney injury N17.9 CAD (coronary artery disease) I25.10 Congestive heart failure I50.9 Systolic CHF I50.20 Lower extremity edema R60.0
--- NOTE | 2025-05-15 18:56 | ECG_ITS ---
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 Measurements Intervals [place] Rate: 74 P: 57 ME: 169 QRS: 57 QRSD: 101 T: 86 QT: 408 QTc: 453 Interpretive Statements SINUS RHYTHM Compared to ECG 05/15/2025 15:40:32 No significant changes Electronically Signed On 05-15-2025 23:52:21 CRM DYNAMICS DEVELOPER by Rhiannon Denton M.D. [id number]
[2025-05-15 19:20] LABS: ABG PCO2 46.1 mmHg (35-45); ABG PH Result 7.36 (7.35-7.45); Arterial Blood Gas Hematocrit 35.0 % (42-52); Blood Gas Allen Test Pos; Blood Gas LPM 3.0 %; Blood Gas Operator Identificat gerca; Blood Gas Sample Site Radial, left; Blood Gas Sample Type Arterial; HCO3 ABG 26.3 mmol/L (22-26); PO2 ABG 72.2 mmHg (80.0-100.0); PO2 FiO2 Ratio Arterial Blood 225
--- NOTE | 2025-05-15 19:25 | PC.NURSE ---
attempted report, nurse to call back. 1919.
[2025-05-15 19:42] LABS: Lactic Sepsis W/Reflex 2.7 mmol/L (0.5-2.2); Procalcitonin 0.12 ng/mL (0-0.5); Troponin(5th) Baseline 33 ng/L (0-15)
--- NOTE | 2025-05-15 20:32 | USCV_ITS ---
Gael Nevarez Age: 74 Gender: M : 1950 Exam Date: 05/15/2025 20:46 Ordering Phys: Arnoldo Dodge MD Technologist: JOSELINE Exam Location: [facility] Indication: swelling History of ischemic CM, CHF, CAD s/p CABG, HTN, HL, presenting with hypotension HISTORY: swelling History of ischemic CM, CHF, CAD s/p CABG, HTN, HL, presenting with hypotension PROCEDURES: Venous duplex imaging was performed in bilateral lower extremities. The following venous structures were evaluated: common femoral vein, profunda vein, proximal portion of the greater saphenous vein, superficial femoral vein, and the popliteal vein. In addition, the posterior tibial and peroneal veins were evaluated. Serial compression, augmentation maneuvers, and spectral Doppler flow evaluation were performed, which were normal. Bilaterally, the common femoral, superficial femoral, profunda femoral, popliteal, posterior tibial, greater saphenous veins, and the peroneal veins were identified and interrogated in the standard fashion. These veins were found to be easily compressible with spontaneous blood flow. No evidence of thrombus noted. CONCLUSIONS No evidence of right lower extremity DVT. No evidence of left lower extremity DVT. Raleigh Kee MD (Electronically Signed) Final Date: 16 May 2025 08:50 S
[2025-05-15 20:49] LABS: Reflex Lactate Order REFLEX LACTIC ORDERD
--- NOTE | 2025-05-15 21:03 | PHA.VACGOAL ---
Vancomycin Goal - Goal Vancomycin Goal:: 15-20 mg/L Vancomycin Indication:: Other (SEPSIS) - Therapy Current therapy:: Pip/Tazo Day of therpy:: Day []of [] . Actual body weight (kg): 163 lb 2.273 oz - Data Labs: WBC 6.40 10^3/uL (3.29-11.43) 05/15/25 16:22 RBC 3.46 10^6/uL (3.85-5.65) L 05/15/25 16:22 Hgb 10.50 g/dL (11.27-16.99) L 05/15/25 16:22 Hct 34.4 % (37-53) L 05/15/25 16:22 MCV 99.4 fl (82-101) 05/15/25 16:22 MCH 30.3 pg (27-33) 05/15/25 16:22 MCHC 30.5 g/dL (30-55) 05/15/25 16:22 RDW 14.6 % (12.1-15.1) 05/15/25 16:22 Sodium 142 mmol/L (136-145) 05/15/25 16:22 Potassium 4.7 mmol/L (3.5-5.1) 05/15/25 16:22 Chloride 103 mmol/L (98-107) 05/15/25 16:22 Carbon Dioxide 26 mmol/L (22-29) 05/15/25 16:22 Anion Gap 17.7 (5-19) 05/15/25 16:22 BUN 33 mg/dL (8-23) H 05/15/25 16:22 Creatinine 2.3 mg/dL (0.7-1.2) H 05/15/25 16:22 GFR Calculation Not Reportable 05/15/25 16:22 Last dialysis session:: N/A Treatment plan:: new consult Regimen:: PATIENT IN SEPTIC SHOCK. SCR SIGNIFICANTLY ELEVATED COMPARED TO PATIENT'S HISTORICAL LEVELS. ORDERED 2000 MG LOADING DOSE FOR 05/15/25 AT 2115, MAINTENANCE DOSE OF 1000 MG Q24H TO START 05/16/25 AT 2100. CONSIDER EARLY LEVEL TO ENSURE PATIENT IS NOT SUPRATHERAPEUTIC. Follow up:: WILL CONTINUE TO MONITOR DAILY AND PLAN TO DRAW TROUGH BEFORE FOURTH DOSE.
--- NOTE | 2025-05-15 21:39 | ECG_ITS ---
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 Measurements Intervals [place] Rate: 59 P: 77 ND: 165 QRS: 69 QRSD: 110 T: 100 QT: 429 QTc: 428 Interpretive Statements SINUS BRADYCARDIA WITH MARKED SINUS ARRHYTHMIA MINIMAL ST DEPRESSION [0.025+ mV ST DEPRESSION] Compared to ECG 05/15/2025 18:56:21 ST (T wave) deviation now present Sinus rhythm no longer present Electronically Signed On 05-15-2025 23:57:17 PICKER/PULLER by Rhiannon Denton M.D. [email or web address]
[2025-05-15] MEDS: pantoprazole 40 mg SDV IVP (21:43)
[2025-05-15] MEDS: albumin 25 G/100 ML BAG 60 G IV (21:47)
[2025-05-15] MEDS: morphine 4 mg/mL SDV 1 mL 2 MG IVP (21:57)
[2025-05-15 22:06] LABS: Troponin 5 2HR 31.16 ng/L (0-15)
[2025-05-15 22:07] LABS: Lactic Acid level (Lactate) 1.1 mmol/L (0.5-2.2)
[2025-05-15 22:15] LABS: Estmated Average Glucose 91; Hemoglobin A1C 4.8 % (4.0-6.0)
[2025-05-15 22:16] LABS: Troponin 5 2HR Delta -1.84 ABS# (0-10)
[2025-05-15 22:17] LABS: Cholesterol 139 mg/dL (0-200); HDL Cholesterol 51 mg/dL (60-100); Thyroid Stimulating Hormone 0.33 uIU/mL (0.27-4.20); Triglycerides 202 mg/dL (0-150)
[2025-05-15] MEDS: piperacillin-tazobactam 3.375 GM in sodium chloride 0.9% (plus) 50 ML IV (23:24)
[2025-05-16] VITALS (36 sets, daily range): BP systolic 98–157; BP diastolic 46–80; PULSE 49–73; RESP 16–22; TEMP 36.2–36.8; O2SAT 88–100
[2025-05-16 01:12] LABS: Troponin 5 6HR 32.87 ng/L (0-15)
[2025-05-16 01:15] LABS: Troponin 5 6HR Delta -0.13 ng/L (0-12)
[2025-05-16] MEDS: albumin 25 G/100 ML BAG 60 G IV ×3 (04:07→20:40)
[2025-05-16] MEDS: piperacillin-tazobactam 3.375 GM in sodium chloride 0.9% (plus) 50 ML IV ×3 (04:11→20:40)
[2025-05-16 05:18] LABS: Glucose Urine UA Negative (Normal); Nitrate Urine Negative (Negative); Specific Gravity, Urine 1.007 (1.005-1.030)
[2025-05-16 05:21] LABS: Hematocrit 33.7 % (37-53); Hemoglobin 10.40 g/dL (11.27-16.99); Mean Corpuscular HGB Conc 30.9 g/dL (30-55); Mean Corpuscular Hemoglobin 30.1 pg (27-33); Mean Corpuscular Volume 97.4 fl (82-101); Nucleated Red Blood Cells % 0 %; Platelet Count 136 10^3/cmm (157-399); Red Blood Count 3.46 10^6/uL (3.85-5.65); White Blood Count 5.65 10^3/uL (3.29-11.43)
[2025-05-16 05:22] LABS: Add Urine Microscopic? YES
[2025-05-16 05:37] LABS: Alanine Aminotransferase 8 U/L (0-41); Albumin Level 3.6 g/dL (3.5-5.2); Alkaline Phosphatase 70 U/L (40-130); Anion Gap 15.1 (5-19); Aspartate Amino Transferase 10 U/L (0-40); Blood Urea Nitrogen 31 mg/dL (8-23); Calcium 8.5 mg/dL (8.5-10.5); Carbon Dioxide 28 mmol/L (22-29); Chloride 107 mmol/L (98-107); Globulin 1.7 g/dL (1.3-4.6); Glucose 80 mg/dL (65-115); Magnesium 2.0 mg/dL (1.7-2.3); Osmolality Calculated 308 mOsm/kg (285-295); Potassium 4.1 mmol/L (3.5-5.1); Sodium 146 mmol/L (136-145); Total Protein 5.3 g/dL (6.6-8.7)
[2025-05-16 05:49] LABS: NT Pro B Type Natriuretic Pept 715 pg/mL (0-125)
--- NOTE | 2025-05-16 08:59 | PC.PHAR ---
Pt presented rx bottles last time he was here on 05/08/25. Today, family went over medications in the room. Nothing has changed since last discharge. Pt took am meds yesterday.
--- NOTE | 2025-05-16 11:17 | PC.NURSE ---
up in bed this am ,, brk with good appitite noted family at bedside no distress noted , remains with bradycardia this am
[2025-05-16] MEDS: morphine 4 mg/mL SDV 1 mL 2 MG IVP ×3 (12:44→20:42)
--- NOTE | 2025-05-16 13:38 | P.PN_ITS ---
Subjective 2 Subjective: Patient was seen this morning alert oriented x 3, follow commands, denies any lightheadedness, dizziness, no nausea, no vomiting, no abdominal pain, no shortness of breath, edema is improving, Vitals/I&O/Wt Last Vital Signs Temp 97.8 F 05/16/25 04:00 Pulse 54 L 05/16/25 13:00 Resp 22 H 05/16/25 12:44 BP 151/60 05/16/25 13:00 Pulse Ox 98 05/16/25 13:00 O2 Del Method Nasal Cannula 05/16/25 09:15 O2 Flow Rate 4 05/16/25 09:15 05/15/25 05/16/25 05/16/25 22:59 06:59 14:59 Intake Total 750 / 750 650 / 1400 50 / 50 Balance 750 / 750 650 / 1400 50 / 50 Weight last 48 hrs Weight 75 kg Weight 74 kg Weight 97.522 kg Physical Exam 2 Const: COMMON NORMALS: no acute distress and patient oriented x3 Resp: COMMON NORMALS: normal respiratory effort, No retractions, No use of accessory muscles and clear to auscultation bilaterally AUSCULTATION: clear to auscultation bilaterally Cardio: COMMON NORMALS: regular rate, regular rhythm, S1 normal heart sound present and S2 normal heart sound present RATE: regular rate RHYTHM: r egular rhythm HEART SOUNDS: S1 normal heart sound present and S2 normal heart sound present GI: COMMON NORMALS: Normal to inspection, nondistended, normoactive bowel sounds present and non-tender Extremity: COMMON NORMALS: no calf tenderness and no pedal edema Neuro: COMMON NORMALS: patient oriented x3 Psych: COMMON NORMALS: mental status grossly normal Urinary Catheter Management: Franco: Cath Placed During This Visit: yes Reason for Continuing Indwelling Catheter: Accurate Measurement of Urinary Output in Critically Ill Patients Urinary Catheter Date of Insertion: 05/15/25 Urinary Catheter Time of Insertion: 21:00 Data 05/16/25 04:32 05/16/25 04:32 Micro: Microbiology 05/15/25 19:54 Blood Culture - Preliminary Blood SPECIMEN COLLECTED 05/15/25 19:52 Blood Culture - Preliminary Blood SPECIMEN COLLECTED A&P Assessment and plan 1. Cellulitis: 2. Cardiogenic shock: 3. Septic shock: 4. Acute kidney injury: 5. CAD (coronary artery disease): 6. Congestive heart failure: 7. Systolic CHF: 8. Lower extremity edema: Plan: Multifactorial shock - Concerns for septic shock associate with cellulitis - Concerns for cardiogenic shock, given JVD, lower extremity edema, shortness of breath, history of ischemic cardiomyopathy Plan - Has received less than sepsis bolus, due to risk of fluid overload - Start albumin - Start midodrine - Currently not requiring Levophed, blood pressures are more reasonable, will moved to medical floors Concerns for systolic CHF, ischemic cardiomyopathy Plan - Cardiac echo pending - Serial EKGs, serial troponins, telemetry monitoring - Lasix 40 IV twice daily - Monitor urine output Cellulitis bilateral extremities - Vancomycin - Zosyn - Venous ultrasound no dvt - Blood culture TREVON - Concerns for cardiorenal syndrome - Component of sepsis - Has received fluids - Treatment as above - Will avoid fluid therapy given evidence of fluid overload, systolic CHF - IV diuresis History of CAD History of 05/15/2025 Conclusions 1. There is total occlusion coronary artery disease with three vessel disease. 2. Four coronary grafts visualized: three grafts patent, and one graft occluded. 3. The apex, mid posterior, mid septum, anterolateral, mid inferior moore are hypokinetic. 4. All other visualized moore normal. 5. Mild left ventricular systolic dysfunction. Ejection fraction of 45%. - Serial EKGs, serial troponins, tolerated monitoring - Aspirin, Plavix, statin Full code Lovenox for DVT prophylaxis PDMP PDMP Reviewed: Not Reviewed Attestations 2 Medical Necessity Statement*: Patient requires hospital patient for cellulitis, systolic CHF Diagnoses Cellulitis L03.90 Cardiogenic shock R57.0 Septic shock A41.9; R65.21 Acute kidney injury N17.9 CAD (coronary artery disease) I25.10 Congestive heart failure I50.9 Systolic CHF I50.20 Lower extremity edema R60.0
--- NOTE | 2025-05-16 13:44 | USCV_ITS ---
Gael Nevarez Age: 74 Gender: M : 1950 Exam Date: 05/16/2025 16:41 Ordering Phys: Arnoldo Dodge MD Technologist: JACQUES Exam Location: [facility] [place] Indication: SoB BP: 151 / 60 HR: 53 Rhythm: Sinus Technical Quality: Adequate MEASUREMENTS (Male / Female) Normal Values 2D ECHO LV Diastolic Diameter PLAX 5.7 cm 4.2 - 5.9 / 3.9 - 5.3 cm IVS Diastolic Thickness 0.6 cm 0.6 - 1.0 / 0.6 - 0.9 cm IVS Systolic Thickness 0.9 cm LVPW Diastolic Thickness 0.7 cm 0.6 - 1.0 / 0.6 - 0.9 cm LVPW Systolic Thickness 0.8 cm LVOT Diameter 2.1 cm LV Ejection Fraction 2D Teich 23.5 % LV Ejection Fraction MOD 4C 51.6 % LV Ejection Fraction MOD 2C 54.4 % LV Ejection Fraction 2C AL 56.0 % LA Diameter 3.1 cm RA Systolic Volume 4C AL 47.2 ml RA Systolic Volume 4C MOD 46.6 ml LA Sys Volume AL 33.5 cm cubed LA Sys Volume Index AL 17.7 cm cubed/m squared Aorta at Sinotubular Diameter 2.4 cm M-MODE LA Ao Ratio MM 1.3 AV Cusp Separation MM 1.4 cm DOPPLER AV Peak Velocity 145.0 cm/s LVOT Peak Velocity 84.0 cm/s AV Area Cont Eq vti 2.3 cm squared AV Area Cont Eq pk 2.0 cm squared MV Peak Velocity 92.0 cm/s MV Area PHT 3.3 cm squared Mitral E to A Ratio 0.8 TR Peak Velocity 260.0 cm/s TR Peak Gradient 27.0 mmHg TV Peak E Velocity 66.0 cm/s PV Peak Velocity 100.0 cm/s FINDINGS Left Ventricle Normal left ventricular size. LV systolic function is mildly reduced with EF of 45-50%. Mild global hypokinesis. Right Ventricle Normal in size and function Right Atrium Normal in size Left Atrium Normal in size IA Septum Grossly normal Mitral Valve Structurally normal normal valve. Mild mitral regurgitation Aortic Valve Aortic valve is thickened. No significant stenosis or regurgitation. Tricuspid Valve Mild tricuspid regurgitation. Pulmonary artery systolic pressure is normal. Pulmonic Valve Mild pulmonic regurgitation. Pericardium Normal Aorta Normal in size IVC Not well visualized CONCLUSIONS LV systolic function is mildly reduced with EF of 45-50% Mild mitral regurgitation Mild tricuspid regurgitation. Mild pulmonic regurgitation. Connor Langley MD (Electronically Signed) Final Date: 17 May 2025 15:02 S
[2025-05-16] MEDS: FUROsemide 10 mg/mL SDV 4mL 40 MG IVP (13:52)
--- NOTE | 2025-05-16 14:45 | PC.NURSE ---
report called and transfered to room 108
[2025-05-16] MEDS: pantoprazole 40 mg SDV IVP (20:41)
[2025-05-17] VITALS (12 sets, daily range): BP systolic 110–133; BP diastolic 49–64; PULSE 50–62; RESP 13–23; TEMP 36.5–36.9; O2SAT 92–98
[2025-05-17] MEDS: FUROsemide 10 mg/mL SDV 4mL 40 MG IVP ×2 (02:00→13:57)
[2025-05-17] MEDS: morphine 4 mg/mL SDV 1 mL 2 MG IVP ×3 (02:33→17:35)
[2025-05-17 04:01] LABS: Hematocrit 32.6 % (37-53); Hemoglobin 10.10 g/dL (11.27-16.99); Mean Corpuscular HGB Conc 31.0 g/dL (30-55); Mean Corpuscular Hemoglobin 30.1 pg (27-33); Mean Corpuscular Volume 97.3 fl (82-101); Nucleated Red Blood Cells % 0 %; Platelet Count 147 10^3/cmm (157-399); Red Blood Count 3.35 10^6/uL (3.85-5.65); White Blood Count 5.75 10^3/uL (3.29-11.43)
[2025-05-17 04:29] LABS: Alanine Aminotransferase 7 U/L (0-41); Albumin Level 4.1 g/dL (3.5-5.2); Alkaline Phosphatase 62 U/L (40-130); Anion Gap 13.2 (5-19); Aspartate Amino Transferase 8 U/L (0-40); Blood Urea Nitrogen 28 mg/dL (8-23); Calcium 9.1 mg/dL (8.5-10.5); Carbon Dioxide 33 mmol/L (22-29); Chloride 105 mmol/L (98-107); Globulin 1.5 g/dL (1.3-4.6); Glucose 95 mg/dL (65-115); Magnesium 2.0 mg/dL (1.7-2.3); Osmolality Calculated 309 mOsm/kg (285-295); Potassium 4.2 mmol/L (3.5-5.1); Sodium 147 mmol/L (136-145); Total Protein 5.6 g/dL (6.6-8.7)
[2025-05-17] MEDS: albumin 25 G/100 ML BAG 60 G IV ×2 (05:56→13:56)
[2025-05-17] MEDS: piperacillin-tazobactam 3.375 GM in sodium chloride 0.9% (plus) 50 ML IV ×3 (05:56→22:05)
[2025-05-17] MEDS: ondansetron 2 mg/ML SDV 2 mL 4 MG IVP ×2 (10:19→17:28)
--- NOTE | 2025-05-17 14:37 | P.PN_ITS ---
Subjective 2 Subjective: Edema has been improving gradually. Breathing has been more comfortable. Vitals/I&O/Wt Last Vital Signs Temp 97.7 F 05/17/25 11:57 Pulse 62 05/17/25 11:57 Resp 13 05/17/25 11:57 BP 130/56 05/17/25 11:57 Pulse Ox 93 05/17/25 11:57 O2 Del Method Nasal Cannula 05/17/25 11:57 O2 Flow Rate 2 05/17/25 11:18 05/16/25 05/17/25 05/17/25 22:59 06:59 14:59 Intake Total 50 / 500 400 / 900 150 / 150 Output Total 2400 / 4300 300 / 4600 1125 / 1125 Balance -2350 / -3800 100 / -3700 -975 / -975 Weight last 48 hrs Weight 73 kg Weight 75 kg Weight 74 kg Weight 97.522 kg Physical Exam 2 Const: COMMON NORMALS: patient oriented x3 and alert GENERAL APPEARANCE: c ooperative ORIENTATION/CONSCIOUSNESS: Yes awake HENMT: COMMON NORMALS: oropharynx normal Neck/C-Spine: COMMON NORMALS: no JVD Resp: COMMON NORMALS: normal respiratory effort and clear to auscultation bilaterally AUSCULTATION: clear to auscultation bilaterally Cardio: COMMON NORMALS: no JVD, regular rhythm, S1 normal heart sound present, S2 normal heart sound present and No murmurs present (Cardio) RHYTHM: regular rhythm HEART SOUNDS: S1 normal heart sound present and S2 normal heart sound present GI: COMMON NORMALS: Normal to inspection, nondistended, normoactive bowel sounds present, Soft to palpation and non-tender PALPATION: Yes Soft to palpation Extremity: COMMON NORMALS: no joint enlargement GENERAL: Yes edema (1+) Neuro: COMMON NORMALS: patient oriented x3 and moves all extremities S ENSORIUM/ORIENTATION: Yes alert Skin: COMMON NORMALS: no rashes or lesions noted GENERAL SKIN EXAM: no rashes or lesions noted Urinary Catheter Management: Franco: Cath Placed During This Visit: yes Reason for Continuing Indwelling Catheter: Other Urinary Catheter Date of Insertion: 05/15/25 Urinary Catheter Time of Insertion: 21:00 Data 05/17/25 03:29 05/17/25 03:29 Micro: Microbiology 05/15/25 19:54 Blood Culture - Preliminary Blood NEGATIVE TO DATE 05/15/25 19:52 Blood Culture - Preliminary Blood NEGATIVE TO DATE A&P Assessment and plan 1. Cellulitis: 2. Cardiogenic shock: 3. Septic shock: 4. Acute kidney injury: 5. CAD (coronary artery disease): 6. Congestive heart failure: 7. Systolic CHF: 8. Lower extremity edema: Plan: Multifactorial shock: Resolved. Reviewed blood pressures. Stop albumin infusions. Monitor for risk of fluid overload. - Concerns for septic shock associate with cellulitis. Continue treatment with antibiotic coverage with Zosyn and vancomycin. Monitor for risk of TREVON with antibiotic combination. - Concerns for cardiogenic shock, given JVD, lower extremity edema, shortness of breath, history of ischemic cardiomyopathy. Reviewed echocardiogram, pending read. Reviewed venous duplex, negative for DVT. Concerns for systolic CHF, ischemic cardiomyopathy: Gradually improving. Continue with IV diuresis. Reassess renal function, electrolytes with risk of deficiency with IV diuretic. Plan - Cardiac echo pending, reviewed, pending read - Serial EKGs, serial troponins, telemetry monitoring - Lasix 40 IV twice daily - Monitor urine output Discussed with nursing, case management. Cellulitis bilateral extremities - Vancomycin - Zosyn - Venous ultrasound no dvt - Blood culture, reviewed TREVON: Noted improving TREVON. Creatinine at 1.6. So far tolerating diuresis. Reassess chemistry. History of CAD History of 05/15/2025 Conclusions 1. There is total occlusion coronary artery disease with three vessel disease. 2. Four coronary grafts visualized: three grafts patent, and one graft occluded. 3. The apex, mid posterior, mid septum, anterolateral, mid inferior moore are hypokinetic. 4. All other visualized moore normal. 5. Mild left ventricular systolic dysfunction. Ejection fraction of 45%. - Serial EKGs, serial troponins, tolerated monitoring - Aspirin, Plavix, statin Physical deconditioning: Found to be deconditioned on nursing and then therapy assessment. Would benefit from continued physical therapy and rehabilitation, strengthening to allow for greater independence and safety. Arrangements underway for SNF rehabilitation after discharge. Discussed with case management, nursing, OT/PT. Reviewed PT note. Full code Lovenox for DVT prophylaxis PDMP PDMP Reviewed: Not Reviewed Attestations 2 Medical Necessity Statement*: Admission for assessment management of acute CHF following multifactorial shock, treatment of cellulitis, discharge planning and arrangements. and High MDM includes amount and/or complexity of data reviewed/ordered [ resulted lab(s)/test(s), ordered lab(s)/test(s) and other healthcare professional discussion] and described risk of complication, morbidity or mortality of management as documented Diagnoses Cellulitis L03.90 Cardiogenic shock R57.0 Septic shock A41.9; R65.21 Acute kidney injury N17.9 CAD (coronary artery disease) I25.10 Congestive heart failure I50.9 Systolic CHF I50.20 Lower extremity edema R60.0
[2025-05-17] MEDS: pantoprazole 40 mg SDV IVP (20:46)
[2025-05-18] VITALS (13 sets, daily range): BP systolic 109–161; BP diastolic 49–84; PULSE 60–84; RESP 15–22; TEMP 36.1–37.6; O2SAT 92–97
[2025-05-18] MEDS: morphine 4 mg/mL SDV 1 mL 2 MG IVP ×6 (01:46→23:57)
[2025-05-18] MEDS: ondansetron 2 mg/ML SDV 2 mL 4 MG IVP ×2 (01:46→20:04)
[2025-05-18] MEDS: FUROsemide 10 mg/mL SDV 4mL 40 MG IVP (01:47)
[2025-05-18 03:11] LABS: Hematocrit 33.9 % (37-53); Hemoglobin 10.40 g/dL (11.27-16.99); Mean Corpuscular HGB Conc 30.7 g/dL (30-55); Mean Corpuscular Hemoglobin 30.7 pg (27-33); Mean Corpuscular Volume 100.0 fl (82-101); Nucleated Red Blood Cells % 0 %; Platelet Count 136 10^3/cmm (157-399); Red Blood Count 3.39 10^6/uL (3.85-5.65); White Blood Count 5.92 10^3/uL (3.29-11.43)
[2025-05-18 03:41] LABS: Alanine Aminotransferase 7 U/L (0-41); Albumin Level 4.4 g/dL (3.5-5.2); Alkaline Phosphatase 59 U/L (40-130); Anion Gap 11.6 (5-19); Aspartate Amino Transferase 8 U/L (0-40); Blood Urea Nitrogen 26 mg/dL (8-23); Calcium 9.5 mg/dL (8.5-10.5); Carbon Dioxide 35 mmol/L (22-29); Chloride 103 mmol/L (98-107); Globulin 1.9 g/dL (1.3-4.6); Glucose 101 mg/dL (65-115); Magnesium 1.9 mg/dL (1.7-2.3); Osmolality Calculated 307 mOsm/kg (285-295); Potassium 3.6 mmol/L (3.5-5.1); Sodium 146 mmol/L (136-145); Total Protein 6.3 g/dL (6.6-8.7)
[2025-05-18] MEDS: piperacillin-tazobactam 3.375 GM in sodium chloride 0.9% (plus) 50 ML IV ×3 (04:40→20:15)
--- NOTE | 2025-05-18 11:03 | PC.NURSE ---
Patient up to chair at this time. Tolerating well
--- NOTE | 2025-05-18 11:33 | PM.PN ---
Subjective Subjective: He is feeling about the same. No worsening. No chest pain or pressure. Vitals/I&O/Wt Last Vital Signs Temp 97.5 F L 05/18/25 11:32 Pulse 60 05/18/25 11:32 Resp 17 05/18/25 11:32 BP 141/84 05/18/25 11:32 Pulse Ox 92 05/18/25 11:32 O2 Del Method Nasal Cannula 05/18/25 11:32 O2 Flow Rate 2 05/18/25 07:47 05/17/25 05/18/25 05/18/25 22:59 06:59 14:59 Intake Total 400 / 550 50 / 600 50 / 50 Output Total 750 / 1875 950 / 2825 Balance -350 / -1325 -900 / -2225 50 / 50 Weight last 48 hrs Weight 72 kg Weight 73 kg Physical Exam Const: COMMON NORMALS: patient oriented x3 and alert GENERAL APPEARANCE: cooperative ORIENTATION/CONSCIOUSNESS: Yes awake HENMT: COMMON NORMALS: oropharynx normal Neck/C-Spine: COMMON NORMALS: no JVD Resp: COMMON NORMALS: normal respiratory effort and clear to auscultation bilaterally AUSCULTATION: clear to auscultation bilaterally Cardio: COMMON NORMALS: no JVD, regular rhythm, S1 normal heart sound present, S2 normal heart sound present and No murmurs present (Cardio) RHYTHM: regular rhythm HEART SOUNDS: S1 normal heart sound present and S2 normal heart sound present GI: COMMON NORMALS: Normal to inspection, nondistended, normoactive bowel sounds present, Soft to palpation and non-tender PALPATION: Yes Soft to palpation Extremity: COMMON NORMALS: no joint enlargement GENERAL: Yes edema (1+) Neuro: COMMON NORMALS: patient oriented x3 and moves all extremities SENSORIUM/ORIENTATION: Yes alert Skin: COMMON NORMALS: no rashes or lesions noted GENERAL SKIN EXAM: no rashes or lesions noted Urinary Catheter Management: Franco: Cath Placed During This Visit: yes Reason for Continuing Indwelling Catheter: Other Urinary Catheter Date of Insertion: 05/15/25 Urinary Catheter Time of Insertion: 21:00 Data 05/18/25 02:36 05/18/25 02:36 A&P Assessment and plan 1. Cellulitis: 2. Cardiogenic shock: 3. Septic shock: 4. Acute kidney injury: 5. CAD (coronary artery disease): 6. Congestive heart failure: 7. Systolic CHF: 8. Lower extremity edema: Plan: Concerns for systolic CHF, ischemic cardiomyopathy: Gradually improving. Reviewed vitals, CBC, CMP. Magnesium. Reviewed intake and output, negative balance 1200 mL last 24 hours. Weight is coming down to 72 kg, and may be close to his dry weight. Will switch from IV to oral diuretic. Reassess renal function. Monitor for risk of kidney injury, electrolyte deficiency. Monitor blood pressures. - Monitor urine output Discussed with nursing, case management. Cellulitis bilateral extremities - Vancomycin - Zosyn - Venous ultrasound no dvt - Blood culture, reviewed TREVON: Had shown improvement in TREVON. Today creatinine leveled off at 1.6. So far tolerating diuresis. Reassess chemistry. Multifactorial shock: Resolved. Reviewed blood pressures. Stop albumin infusions. Monitor for risk of fluid overload. - Concerns for septic shock associate with cellulitis. Continue treatment with antibiotic coverage with Zosyn and vancomycin. Monitor for risk of TREVON with antibiotic combination. - Concerns for cardiogenic shock, given JVD, lower extremity edema, shortness of breath, history of ischemic cardiomyopathy. Reviewed echocardiogram, pending read. Reviewed venous duplex, negative for DVT. History of CAD History of 05/15/2025 Conclusions 1. There is total occlusion coronary artery disease with three vessel disease. 2. Four coronary grafts visualized: three grafts patent, and one graft occluded. 3. The apex, mid posterior, mid septum, anterolateral, mid inferior moore are hypokinetic. 4. All other visualized moore normal. 5. Mild left ventricular systolic dysfunction. Ejection fraction of 45%. - Serial EKGs, serial troponins, tolerated monitoring - Aspirin, Plavix, statin Physical deconditioning: Discussed with machine adjuster leader case trim, pending arrangements for SNF rehabilitation. Found to be deconditioned on nursing and then therapy assessment. Would benefit from continued physical therapy and rehabilitation, strengthening to allow for greater independence and safety. Arrangements underway for SNF rehabilitation after discharge. Discussed with case management, nursing, OT/PT. Reviewed PT note. Full code Lovenox for DVT prophylaxis PDMP PDMP Reviewed: Not Reviewed Attestations Medical Necessity Statement*: Admission for assessment management of acute CHF following multifactorial shock, treatment of cellulitis, discharge planning and arrangements. and High MDM includes amount and/or complexity of data reviewed/ordered [ resulted lab(s)/test(s) and other healthcare professional discussion] and described risk of complication, morbidity or mortality of management as documented Diagnoses Cellulitis L03.90 Cardiogenic shock R57.0 Septic shock A41.9; R65.21 Acute kidney injury N17.9 CAD (coronary artery disease) I25.10 Congestive heart failure I50.9 Systolic CHF I50.20 Lower extremity edema R60.0
--- NOTE | 2025-05-18 11:46 | PC.CHAP ---
Pastoral Care Encounter/Spiritual Assessment Type of Contact [X] Declined dry drug worker visit [] Patient/Family/Request visit [] Outpatient visit [] Follow-up visit [] Physician referral [] Code/Alert [] Routine visit [] Staff referral [] Actively dying [] Patient sleeping [] Family support [] [] Out of room [] Palliative care [] [] Receiving care in room [] Pre-surgical visit [] Trauma [] Long length of stay [] ICU visit [] Other: Relational/Emotional Strength [] Patient feels connected with others/family/visitors/staff [] Distress [] Loneliness/isolation [] Abandonment Spirituality of Patient [] Person of Joselin [] Attends Advent of their Joselin [] Believes in Prayer [] Reads Bible or Sikhism materials [] There are Spiritual issues to be addressed Cardiac/Vascular Sonographer Interventions [] Prayer [] Active listening [] Non-anxious presence [] Spiritual/emotional support [] Crisis/trauma care [] Spiritual counseling [] Bereavement support [] Provided bereavement packet [] Provided Bible/devotional materials [] Provided toy/stuffed animal, coloring book to patient or family member [] Provided Communion [] Anointing/[place] [] Salvation [] Completed spiritual assessment [] Other: Impact on Illness or Injury [] Angry [] Fearful [] Anxious [] Often cries [] Exhaustion [] Unable to work [] Unable to attend synagogue [] Unable to walk/stand [] Unable to read [] Unable to drive [] Unable to eat/drink [] Unable to sleep [] Unable to be with family [] Patient intubated [] Other: Summary Time spent with patient
[2025-05-18] MEDS: pantoprazole 40 mg SDV IVP (20:04)
[2025-05-19] VITALS (13 sets, daily range): BP systolic 111–145; BP diastolic 42–81; PULSE 69–84; RESP 16–24; TEMP 36.4–37.1; O2SAT 2–100
[2025-05-19 02:57] LABS: Hematocrit 33.6 % (37-53); Hemoglobin 10.20 g/dL (11.27-16.99); Mean Corpuscular HGB Conc 30.4 g/dL (30-55); Mean Corpuscular Hemoglobin 30.0 pg (27-33); Mean Corpuscular Volume 98.8 fl (82-101); Nucleated Red Blood Cells % 0 %; Platelet Count 127 10^3/cmm (157-399); Red Blood Count 3.40 10^6/uL (3.85-5.65); White Blood Count 6.74 10^3/uL (3.29-11.43)
[2025-05-19 03:11] LABS: Anion Gap 11.7 (5-19); Blood Urea Nitrogen 30 mg/dL (8-23); Calcium 9.0 mg/dL (8.5-10.5); Carbon Dioxide 35 mmol/L (22-29); Chloride 101 mmol/L (98-107); Glucose 104 mg/dL (65-115); Osmolality Calculated 304 mOsm/kg (285-295); Potassium 3.7 mmol/L (3.5-5.1); Sodium 144 mmol/L (136-145)
[2025-05-19] MEDS: morphine 4 mg/mL SDV 1 mL 2 MG IVP ×5 (05:41→21:34)
[2025-05-19] MEDS: piperacillin-tazobactam 3.375 GM in sodium chloride 0.9% (plus) 50 ML IV ×2 (06:01→12:59)
--- NOTE | 2025-05-19 06:52 | PM.PN ---
Subjective Subjective: He states overall he is doing all right. Denies any new changes. No new symptoms. Breathing is been improving. Vitals/I&O/Wt Last Vital Signs Temp 98.7 F 05/19/25 04:00 Pulse 70 05/19/25 04:00 Resp 18 05/19/25 05:41 BP 121/42 05/19/25 04:00 Pulse Ox 96 05/19/25 04:00 O2 Del Method Nasal Cannula 05/19/25 04:00 O2 Flow Rate 2 05/18/25 07:47 05/18/25 05/18/25 05/19/25 14:59 22:59 06:59 Intake Total 50 / 50 50 / 100 300 / 400 Output Total 550 / 550 350 / 900 Balance -500 / -500 50 / -450 -50 / -500 Weight last 48 hrs Weight 73.6 kg Weight 72 kg Physical Exam Const: COMMON NORMALS: patient oriented x3 and alert GENERAL APPEARANCE: cooperative ORIENTATION/CONSCIOUSNESS: Yes awake HENMT: COMMON NORMALS: oropharynx normal Neck/C-Spine: COMMON NORMALS: no JVD Resp: COMMON NORMALS: normal respiratory effort and clear to auscultation bilaterally AUSCULTATION: clear to auscultation bilaterally Cardio: COMMON NORMALS: no JVD, regular rhythm, S1 normal heart sound present, S2 normal heart sound present and No murmurs present (Cardio) RHYTHM: regular rhythm HEART SOUNDS: S1 normal heart sound present and S2 normal heart sound present GI: COMMON NORMALS: Normal to inspection, nondistended, normoactive bowel sounds present, Soft to palpation and non-tender PALPATION: Yes Soft to palpation Extremity: COMMON NORMALS: no joint enlargement GENERAL: No edema Neuro: COMMON NORMALS: patient oriented x3 and moves all extremities SENSORIUM/ORIENTATION: Yes alert Skin: COMMON NORMALS: no rashes or lesions noted GENERAL SKIN EXAM: no rashes or lesions noted Urinary Catheter Management: Franco: Cath Placed During This Visit: yes Reason for Continuing Indwelling Catheter: Accurate Measurement of Urinary Output in Critically Ill Patients Urinary Catheter Date of Insertion: 05/15/25 Urinary Catheter Time of Insertion: 21:00 Data 05/19/25 02:26 05/19/25 02:26 A&P Assessment and plan 1. Cellulitis: 2. Cardiogenic shock: 3. Septic shock: 4. Acute kidney injury: 5. CAD (coronary artery disease): 6. Congestive heart failure: 7. Systolic CHF: 8. Lower extremity edema: Plan: Physical deconditioning: Pending approval for SNF for further rehabilitation. Discussed with employment evaluator/case manager. Would benefit from continued physical therapy and rehabilitation, strengthening to allow for greater independence and safety. Concerns for systolic CHF, ischemic cardiomyopathy: Resolving CHF. Has transition to oral diuretic. Monitor for risk of hypervolemia. Monitor for risk of electrolyte deficiency, TREVON. Noted slight worsening creatinine up to 1.7 today. Reassess chemistry.Recheck magnesium. Gradually improving. Reviewed vitals, CBC, CMP. Magnesium. Reviewed intake and output, negative balance 1200 mL last 24 hours. Weight is coming down to 72 kg, and may be close to his dry weight. Will switch from IV to oral diuretic. Reassess renal function. Monitor for risk of kidney injury, electrolyte deficiency. Monitor blood pressures. - Monitor urine output Discussed with nursing, case management. Cellulitis bilateral extremities. Overall improved cellulitis. With noted some worsening renal function, creatinine at 1.7. Stop vancomycin and Zosyn. - Venous ultrasound no dvt - Blood culture, reviewed, remains negative TREVON: Slight worsening today creatinine up to 1.7. Stop vancomycin and Zosyn. Has been transition to oral diuretics. Reassess chemistry. Monitor for risk of further kidney injury. Multifactorial shock: Resolved. Reviewed blood pressures. Stop albumin infusions. Monitor for risk of fluid overload. - Concerns for septic shock associate with cellulitis. Continue treatment with antibiotic coverage with Zosyn and vancomycin. Monitor for risk of TREVON with antibiotic combination. - Concerns for cardiogenic shock, given JVD, lower extremity edema, shortness of breath, history of ischemic cardiomyopathy. Reviewed echocardiogram, pending read. Reviewed venous duplex, negative for DVT. History of CAD History of 05/15/2025 Conclusions 1. There is total occlusion coronary artery disease with three vessel disease. 2. Four coronary grafts visualized: three grafts patent, and one graft occluded. 3. The apex, mid posterior, mid septum, anterolateral, mid inferior moore are hypokinetic. 4. All other visualized moore normal. 5. Mild left ventricular systolic dysfunction. Ejection fraction of 45%. - Serial EKGs, serial troponins, tolerated monitoring - Aspirin, Plavix, statin Full code Lovenox for DVT prophylaxis PDMP PDMP Reviewed: Not Reviewed Attestations Medical Necessity Statement*: Admission for assessment management of discharge planning and arrangements after acute CHF following multifactorial shock, treatment of cellulitis, TREVON. and High MDM includes amount and/or complexity of data reviewed/ordered [ resulted lab(s)/test(s), ordered lab(s)/test(s) and other healthcare professional discussion] as documented Diagnoses Cellulitis L03.90 Cardiogenic shock R57.0 Septic shock A41.9; R65.21 Acute kidney injury N17.9 CAD (coronary artery disease) I25.10 Congestive heart failure I50.9 Systolic CHF I50.20 Lower extremity edema R60.0
[2025-05-19] MEDS: pantoprazole 40 mg SDV IVP (19:51)
[2025-05-20] VITALS (11 sets, daily range): BP systolic 117–149; BP diastolic 48–72; PULSE 65–98; RESP 15–29; TEMP 35.9–36.9; O2SAT 90–96
[2025-05-20 02:21] LABS: Hematocrit 31.0 % (37-53); Hemoglobin 9.70 g/dL (11.27-16.99); Mean Corpuscular HGB Conc 31.3 g/dL (30-55); Mean Corpuscular Hemoglobin 30.3 pg (27-33); Mean Corpuscular Volume 96.9 fl (82-101); Nucleated Red Blood Cells % 0 %; Platelet Count 121 10^3/cmm (157-399); Red Blood Count 3.20 10^6/uL (3.85-5.65); White Blood Count 6.72 10^3/uL (3.29-11.43)
[2025-05-20 02:32] LABS: Magnesium 1.9 mg/dL (1.7-2.3)
[2025-05-20 02:33] LABS: Anion Gap 9.5 (5-19); Blood Urea Nitrogen 31 mg/dL (8-23); Calcium 9.0 mg/dL (8.5-10.5); Carbon Dioxide 35 mmol/L (22-29); Chloride 101 mmol/L (98-107); Glucose 117 mg/dL (65-115); Osmolality Calculated 302 mOsm/kg (285-295); Potassium 3.5 mmol/L (3.5-5.1); Sodium 142 mmol/L (136-145)
[2025-05-20] MEDS: morphine 4 mg/mL SDV 1 mL 2 MG IVP ×4 (04:47→21:02)
[2025-05-20] MEDS: ondansetron 2 mg/ML SDV 2 mL 4 MG IVP (10:50)
--- NOTE | 2025-05-20 11:07 | PC.SOCIAL ---
IMM Updated Updated pt on IMM. No questions voiced. Provided pt a copy. Initialed, dated, & timed copy in chart.
--- NOTE | 2025-05-20 12:59 | P.PN_ITS ---
Subjective 2 Subjective: Reports he is doing well. Denies any pain or discomfort. No chest pain or pressure. No trouble breathing. Has been working with physical therapy. Vitals/I&O/Wt Last Vital Signs Temp 98.5 F 05/20/25 11:19 Pulse 65 05/20/25 11:19 Resp 18 05/20/25 11:19 BP 149/48 05/20/25 11:19 Pulse Ox 92 05/20/25 11:19 O2 Del Method Nasal Cannula 05/20/25 11:19 O2 Flow Rate 2 05/20/25 08:49 05/19/25 05/20/25 05/20/25 22:59 06:59 14:59 Intake Total 290 / 1060 400 / 1460 Output Total 1175 / 1175 550 / 1725 Balance -885 / -115 -150 / -265 Weight last 48 hrs Weight 63.5 kg Weight 73.6 kg Physical Exam 2 Narrative: Being visited by his daughter. Const: COMMON NORMALS: patient oriented x3 and alert GENERAL APPEARANCE: c ooperative ORIENTATION/CONSCIOUSNESS: Yes awake HENMT: COMMON NORMALS: oropharynx normal Neck/C-Spine: COMMON NORMALS: no JVD Resp: COMMON NORMALS: normal respiratory effort and clear to auscultation bilaterally AUSCULTATION: clear to auscultation bilaterally Cardio: COMMON NORMALS: no JVD, regular rhythm, S1 normal heart sound present, S2 normal heart sound present and No murmurs present (Cardio) RHYTHM: regular rhythm HEART SOUNDS: S1 normal heart sound present and S2 normal heart sound present GI: COMMON NORMALS: Normal to inspection, nondistended, normoactive bowel sounds present, Soft to palpation and non-tender PALPATION: Yes Soft to palpation Extremity: COMMON NORMALS: no joint enlargement GENERAL: No edema Neuro: COMMON NORMALS: patient oriented x3 and moves all extremities S ENSORIUM/ORIENTATION: Yes alert Urinary Catheter Management: Franco: Cath Placed During This Visit: yes Reason for Continuing Indwelling Catheter: Accurate Measurement of Urinary Output in Critically Ill Patients Urinary Catheter Date of Insertion: 05/15/25 Urinary Catheter Time of Insertion: 21:00 Data 05/20/25 02:03 05/20/25 02:03 A&P Assessment and plan 1. Cellulitis: 2. Cardiogenic shock: 3. Septic shock: 4. Acute kidney injury: 5. CAD (coronary artery disease): 6. Congestive heart failure: 7. Systolic CHF: 8. Lower extremity edema: Plan: Physical deconditioning: Discussed with correctional case records supervisor. Pending approval for SNF for further rehabilitation. Would benefit from continued physical therapy and rehabilitation, strengthening to allow for greater independence and safety. Concerns for systolic CHF, ischemic cardiomyopathy: Resolving CHF. Has transition to oral diuretic. Monitor for risk of hypervolemia. Monitor for risk of electrolyte deficiency, TREVON. Noted slight worsening creatinine up to 1.7 today. Reassess chemistry.Recheck magnesium. Gradually improving. Reviewed vitals, CBC, CMP. Magnesium. Reviewed intake and output, negative balance 1200 mL last 24 hours. Weight is coming down to 72 kg, and may be close to his dry weight. Will switch from IV to oral diuretic. Reassess renal function. Monitor for risk of kidney injury, electrolyte deficiency. Monitor blood pressures. - Monitor urine output Discussed with nursing, case management. Cellulitis bilateral extremities. Resolved. Stop further CBC. With noted some worsening renal function, creatinine at 1.7. Discontinued vancomycin and Zosyn. - Venous ultrasound no dvt - Blood culture, reviewed, remains negative TREVON: Continues to improve. Creatinine down to 1.5. Repeat chemistry. Stop vancomycin and Zosyn. Has been transition to oral diuretics. Reassess chemistry. Monitor for risk of further kidney injury. Multifactorial shock: Resolved. Reviewed blood pressures. Stop albumin infusions. Monitor for risk of fluid overload. - Concerns for septic shock associate with cellulitis. Continue treatment with antibiotic coverage with Zosyn and vancomycin. Monitor for risk of TREVON with antibiotic combination. - Concerns for cardiogenic shock, given JVD, lower extremity edema, shortness of breath, history of ischemic cardiomyopathy. Reviewed echocardiogram, pending read. Reviewed venous duplex, negative for DVT. History of CAD History of 05/15/2025 Conclusions 1. There is total occlusion coronary artery disease with three vessel disease. 2. Four coronary grafts visualized: three grafts patent, and one graft occluded. 3. The apex, mid posterior, mid septum, anterolateral, mid inferior moore are hypokinetic. 4. All other visualized moore normal. 5. Mild left ventricular systolic dysfunction. Ejection fraction of 45%. - Serial EKGs, serial troponins, tolerated monitoring - Aspirin, Plavix, statin Full code Lovenox for DVT prophylaxis PDMP PDMP Reviewed: Not Reviewed Attestations 2 Medical Necessity Statement*: Admission for assessment management of discharge planning and arrangements after acute CHF following multifactorial shock, treatment of cellulitis, TREVON. Coding Level of Care Code Acute Code for Chg Fwd Straight Forward/Low MDM includes number and complexity of problems actively addressed during encounter and described risk of complication, morbidity or mortality of management as documented Diagnoses Cellulitis L03.90 Cardiogenic shock R57.0 Septic shock A41.9; R65.21 Acute kidney injury N17.9 CAD (coronary artery disease) I25.10 Congestive heart failure I50.9 Systolic CHF I50.20 Lower extremity edema R60.0
[2025-05-20] MEDS: pantoprazole 40 mg SDV IVP (21:04)
[2025-05-21] VITALS (10 sets, daily range): BP systolic 111–145; BP diastolic 56–74; PULSE 71–92; RESP 15–31; TEMP 36.5–36.8; O2SAT 90–98
[2025-05-21] MEDS: morphine 4 mg/mL SDV 1 mL 2 MG IVP ×4 (00:54→21:31)
[2025-05-21 03:53] LABS: Anion Gap 12.5 (5-19); Blood Urea Nitrogen 33 mg/dL (8-23); Calcium 9.2 mg/dL (8.5-10.5); Carbon Dioxide 35 mmol/L (22-29); Chloride 97 mmol/L (98-107); Glucose 102 mg/dL (65-115); Osmolality Calculated 299 mOsm/kg (285-295); Potassium 3.5 mmol/L (3.5-5.1); Sodium 141 mmol/L (136-145)
[2025-05-21] MEDS: ondansetron 2 mg/ML SDV 2 mL 4 MG IVP (13:17)
--- NOTE | 2025-05-21 13:31 | P.PN_ITS ---
Subjective 2 Subjective: Reports doing well today, but later also reporting constipation. It has been a while since he has had a bowel movement. Vitals/I&O/Wt Last Vital Signs Temp 97.7 F 05/21/25 08:00 Pulse 86 05/21/25 12:00 Resp 15 05/21/25 13:17 BP 145/74 05/21/25 12:00 Pulse Ox 92 05/21/25 13:17 O2 Del Method Nasal Cannula 05/21/25 08:56 O2 Flow Rate 2 05/21/25 08:56 05/20/25 05/21/25 05/21/25 22:59 06:59 14:59 Intake Total 240 / 480 240 / 240 Output Total 725 / 725 650 / 1375 Balance -485 / -245 -650 / -895 240 / 240 Weight last 48 hrs Weight 74.1 kg Weight 63.5 kg Physical Exam 2 Const: COMMON NORMALS: patient oriented x3 and alert GENERAL APPEARANCE: c ooperative ORIENTATION/CONSCIOUSNESS: Yes awake HENMT: COMMON NORMALS: oropharynx normal Neck/C-Spine: COMMON NORMALS: no JVD Resp: COMMON NORMALS: normal respiratory effort and clear to auscultation bilaterally AUSCULTATION: clear to auscultation bilaterally Cardio: COMMON NORMALS: no JVD, regular rhythm, S1 normal heart sound present, S2 normal heart sound present and No murmurs present (Cardio) RHYTHM: regular rhythm HEART SOUNDS: S1 normal heart sound present and S2 normal heart sound present GI: COMMON NORMALS: Normal to inspection, nondistended, normoactive bowel sounds present, Soft to palpation and non-tender PALPATION: Yes Soft to palpation Extremity: COMMON NORMALS: no joint enlargement GENERAL: No edema Neuro: COMMON NORMALS: patient oriented x3 and moves all extremities S ENSORIUM/ORIENTATION: Yes alert Skin: COMMON NORMALS: no rashes or lesions noted GENERAL SKIN EXAM: no rashes or lesions noted Urinary Catheter Management: Franco: Cath Placed During This Visit: yes Reason for Continuing Indwelling Catheter: Other Urinary Catheter Date of Insertion: 05/15/25 Urinary Catheter Time of Insertion: 21:00 Data 05/20/25 02:03 05/21/25 03:03 Micro: Microbiology 05/15/25 19:54 Blood Culture - Final Blood NO GROWTH AFTER 5 DAYS 05/15/25 19:52 Blood Culture - Final Blood NO GROWTH AFTER 5 DAYS A&P Assessment and plan 1. Cellulitis: 2. Cardiogenic shock: 3. Septic shock: 4. Acute kidney injury: 5. CAD (coronary artery disease): 6. Congestive heart failure: 7. Systolic CHF: 8. Lower extremity edema: Plan: Physical deconditioning: Discussed with high risk case manager. Pending approval for SNF for further rehabilitation. Would benefit from continued physical therapy and rehabilitation, strengthening to allow for greater independence and safety. Discussed with nursing, high risk case manager. Pending authorization for rehabilitation. Constipation: Add MiraLAX. Dulcolax suppository. Concerns for systolic CHF, ischemic cardiomyopathy: Resolving CHF. Has transition to oral diuretic. Monitor for risk of hypervolemia. Monitor for risk of electrolyte deficiency, TREVON. Noted slight worsening creatinine up to 1.7 today. Reassess chemistry.Recheck magnesium. Gradually improving. Reviewed vitals, CBC, CMP. Magnesium. Reviewed intake and output, negative balance 1200 mL last 24 hours. Weight is coming down to 72 kg, and may be close to his dry weight. Will switch from IV to oral diuretic. Reassess renal function. Monitor for risk of kidney injury, electrolyte deficiency. Monitor blood pressures. - Monitor urine output Discussed with nursing, case management. Cellulitis bilateral extremities. Resolved. Stop further CBC. With noted some worsening renal function, creatinine at 1.7. Discontinued vancomycin and Zosyn. - Venous ultrasound no dvt - Blood culture, reviewed, remains negative TREVON: Continues to improve. Creatinine down to 1.5. Repeat chemistry. Stop vancomycin and Zosyn. Has been transition to oral diuretics. Reassess chemistry. Monitor for risk of further kidney injury. Multifactorial shock: Resolved. Reviewed blood pressures. Stop albumin infusions. Monitor for risk of fluid overload. - Concerns for septic shock associate with cellulitis. Continue treatment with antibiotic coverage with Zosyn and vancomycin. Monitor for risk of TREVON with antibiotic combination. - Concerns for cardiogenic shock, given JVD, lower extremity edema, shortness of breath, history of ischemic cardiomyopathy. Reviewed echocardiogram. Diminished LVEF, but unchanged from coronary angiogram in February. Mild global hypokinesis. Reviewed venous duplex, negative for DVT. Known CAD. History of CAD History of 03/06/2025 Conclusions 1. There is total occlusion coronary artery disease with three vessel disease. 2. Four coronary grafts visualized: three grafts patent, and one graft occluded. 3. The apex, mid posterior, mid septum, anterolateral, mid inferior moore are hypokinetic. 4. All other visualized moore normal. 5. Mild left ventricular systolic dysfunction. Ejection fraction of 45%. - Serial EKGs, serial troponins, tolerated monitoring - Aspirin, Plavix, statin Full code Lovenox for DVT prophylaxis PDMP PDMP Reviewed: Not Reviewed Attestations 2 Medical Necessity Statement*: Admission for assessment management of discharge planning and arrangements after acute CHF following multifactorial shock, treatment of cellulitis, TREVON. Diagnoses Cellulitis L03.90 Cardiogenic shock R57.0 Septic shock A41.9; R65.21 Acute kidney injury N17.9 CAD (coronary artery disease) I25.10 Congestive heart failure I50.9 Systolic CHF I50.20 Lower extremity edema R60.0
[2025-05-21] MEDS: polyethylene glycol 3350 Pkt 17 gm PO (17:12)
[2025-05-21] MEDS: pantoprazole 40 mg SDV IVP (21:31)
[2025-05-22] VITALS (12 sets, daily range): BP systolic 101–134; BP diastolic 42–64; PULSE 51–82; RESP 15–17; TEMP 36.4–37; O2SAT 90–94
--- NOTE | 2025-05-22 14:17 | PC.SOCIAL ---
*IMM Updated* Patient received copy of IMM. initialled and dated in chart.
[2025-05-22] MEDS: polyethylene glycol 3350 Pkt 17 gm PO (16:47)
--- NOTE | 2025-05-22 20:56 | P.PN_ITS ---
Subjective 2 Subjective: Doing all right. So far no LOC with a bowel movement. Vitals/I&O/Wt Last Vital Signs Temp 98.6 F 05/22/25 19:58 Pulse 82 05/22/25 19:58 Resp 16 05/22/25 19:58 BP 125/54 05/22/25 19:58 Pulse Ox 93 05/22/25 19:58 O2 Del Method Room Air 05/22/25 15:17 O2 Flow Rate 2 05/22/25 03:51 05/22/25 05/22/25 05/22/25 06:59 14:59 22:59 Intake Total 240 / 240 120 / 360 Output Total 800 / 800 Balance 240 / 240 -680 / -440 Weight last 48 hrs Weight 75.296 kg Weight 74.1 kg Physical Exam 2 Narrative: Being visited by his daughter. Const: COMMON NORMALS: patient oriented x3 and alert GENERAL APPEARANCE: c ooperative ORIENTATION/CONSCIOUSNESS: Yes awake HENMT: COMMON NORMALS: oropharynx normal Neck/C-Spine: COMMON NORMALS: no JVD Resp: COMMON NORMALS: normal respiratory effort and clear to auscultation bilaterally AUSCULTATION: clear to auscultation bilaterally Cardio: COMMON NORMALS: no JVD, regular rhythm, S1 normal heart sound present, S2 normal heart sound present and No murmurs present (Cardio) RHYTHM: regular rhythm HEART SOUNDS: S1 normal heart sound present and S2 normal heart sound present GI: COMMON NORMALS: Normal to inspection, nondistended, normoactive bowel sounds present, Soft to palpation and non-tender PALPATION: Yes Soft to palpation Extremity: COMMON NORMALS: no joint enlargement GENERAL: No edema Neuro: COMMON NORMALS: patient oriented x3 and moves all extremities S ENSORIUM/ORIENTATION: Yes alert Skin: COMMON NORMALS: no rashes or lesions noted GENERAL SKIN EXAM: no rashes or lesions noted Urinary Catheter Management: Franco: Cath Placed During This Visit: yes Reason for Continuing Indwelling Catheter: Other Urinary Catheter Date of Insertion: 05/15/25 Urinary Catheter Time of Insertion: 21:00 Data 05/20/25 02:03 05/21/25 03:03 A&P Assessment and plan 1. Cellulitis: 2. Cardiogenic shock: 3. Septic shock: 4. Acute kidney injury: 5. CAD (coronary artery disease): 6. Congestive heart failure: 7. Systolic CHF: 8. Lower extremity edema: Plan: Physical deconditioning: Being approved by insurance for SNF rehabilitation, pending completion of all arrangements. Discussed with nursing. Discussed with business case analyst. Pending approval for SNF for further rehabilitation. Would benefit from continued physical therapy and rehabilitation, strengthening to allow for greater independence and safety. Discussed with nursing, business case analyst. Pending authorization for rehabilitation. Constipation: Add MiraLAX. Mag citrate. Concerns for systolic CHF, ischemic cardiomyopathy: DC Franco catheter. Compensated CHF. Has transition to oral diuretic. Monitor for risk of hypervolemia. Cellulitis bilateral extremities. Resolved. Completed antibiotics. - Venous ultrasound no dvt - Blood culture, reviewed, remains negative TERVON: Continues to improve. Repeat BMP. Multifactorial shock: Resolved. Reviewed blood pressures. Stop albumin infusions. Monitor for risk of fluid overload. - Concerns for septic shock associate with cellulitis. Continue treatment with antibiotic coverage with Zosyn and vancomycin. Monitor for risk of TREVON with antibiotic combination. - Concerns for cardiogenic shock, given JVD, lower extremity edema, shortness of breath, history of ischemic cardiomyopathy. Reviewed echocardiogram. Diminished LVEF, but unchanged from coronary angiogram in February. Mild global hypokinesis. Reviewed venous duplex, negative for DVT. Known CAD. History of CAD History of 03/06/2025 Conclusions 1. There is total occlusion coronary artery disease with three vessel disease. 2. Four coronary grafts visualized: three grafts patent, and one graft occluded. 3. The apex, mid posterior, mid septum, anterolateral, mid inferior moore are hypokinetic. 4. All other visualized moore normal. 5. Mild left ventricular systolic dysfunction. Ejection fraction of 45%. - Serial EKGs, serial troponins, tolerated monitoring - Aspirin, Plavix, statin Full code Lovenox for DVT prophylaxis PDMP PDMP Reviewed: Not Reviewed Attestations 2 Medical Necessity Statement*: Admission for assessment management of discharge planning and arrangements after acute CHF following multifactorial shock, treatment of cellulitis, TREVON. Diagnoses Cellulitis L03.90 Cardiogenic shock R57.0 Septic shock A41.9; R65.21 Acute kidney injury N17.9 CAD (coronary artery disease) I25.10 Congestive heart failure I50.9 Systolic CHF I50.20 Lower extremity edema R60.0
[2025-05-22] MEDS: pantoprazole 40 mg SDV IVP (21:07)
[2025-05-22] MEDS: morphine 4 mg/mL SDV 1 mL 2 MG IVP (21:08)
[2025-05-23] VITALS (13 sets, daily range): BP systolic 108–138; BP diastolic 46–72; PULSE 64–81; RESP 16–18; TEMP 36.3–36.8; O2SAT 87–98
[2025-05-23] MEDS: oxyCODONE-APAP 10-325 mg Tablet 1 TAB PO (00:37)
[2025-05-23] MEDS: morphine 4 mg/mL SDV 1 mL 2 MG IVP ×2 (02:12→12:48)
[2025-05-23] MEDS: HYDROmorphone 0.5 MG/0.5 ML INJ IVP (05:08)
[2025-05-23 06:01] LABS: Anion Gap 13.4 (5-19); Blood Urea Nitrogen 33 mg/dL (8-23); Calcium 9.5 mg/dL (8.5-10.5); Carbon Dioxide 35 mmol/L (22-29); Chloride 98 mmol/L (98-107); Glucose 100 mg/dL (65-115); Osmolality Calculated 303 mOsm/kg (285-295); Potassium 3.4 mmol/L (3.5-5.1); Sodium 143 mmol/L (136-145)
--- NOTE | 2025-05-23 13:21 | PM.PN ---
Subjective Subjective: Bothered by some back pain overnight, feeling better today. Asking when he may be able to proceed to SNF rehabilitation. Vitals/I&O/Wt Last Vital Signs Temp 97.7 F 05/23/25 11:13 Pulse 73 05/23/25 11:13 Resp 18 05/23/25 11:13 BP 123/72 05/23/25 11:13 Pulse Ox 92 05/23/25 11:13 O2 Del Method Room Air 05/23/25 11:13 O2 Flow Rate 1 05/23/25 08:29 05/22/25 05/23/25 05/23/25 22:59 06:59 14:59 Intake Total 120 / 360 240 / 240 Output Total 800 / 800 Balance -680 / -440 240 / 240 Weight last 48 hrs Weight 74.389 kg Weight 75.296 kg Physical Exam Const: COMMON NORMALS: patient oriented x3 and alert GENERAL APPEARANCE: cooperative ORIENTATION/CONSCIOUSNESS: Yes awake HENMT: COMMON NORMALS: oropharynx normal Neck/C-Spine: COMMON NORMALS: no JVD Resp: COMMON NORMALS: normal respiratory effort and clear to auscultation bilaterally AUSCULTATION: clear to auscultation bilaterally Cardio: COMMON NORMALS: no JVD, regular rhythm, S1 normal heart sound present, S2 normal heart sound present and No murmurs present (Cardio) RHYTHM: regular rhythm HEART SOUNDS: S1 normal heart sound present and S2 normal heart sound present GI: COMMON NORMALS: Normal to inspection, nondistended, normoactive bowel sounds present, Soft to palpation and non-tender PALPATION: Yes Soft to palpation Extremity: COMMON NORMALS: no joint enlargement GENERAL: No edema Neuro: COMMON NORMALS: patient oriented x3 and moves all extremities SENSORIUM/ORIENTATION: Yes alert Skin: COMMON NORMALS: no rashes or lesions noted GENERAL SKIN EXAM: no rashes or lesions noted Urinary Catheter Management: Franco: Cath Placed During This Visit: yes Reason for Continuing Indwelling Catheter: Other Urinary Catheter Date of Insertion: 05/15/25 Urinary Catheter Time of Insertion: 21:00 Data 05/20/25 02:03 05/23/25 05:20 A&P Assessment and plan 1. Cellulitis: 2. Cardiogenic shock: 3. Septic shock: 4. Acute kidney injury: 5. CAD (coronary artery disease): 6. Congestive heart failure: 7. Systolic CHF: 8. Lower extremity edema: Plan: Physical deconditioning: Being approved by insurance for SNF rehabilitation, pending completion of all arrangements. Discussed with nursing. Discussed with field nurse case manager. Pending approval for SNF for further rehabilitation. Would benefit from continued physical therapy and rehabilitation, strengthening to allow for greater independence and safety. Discussed with nursing, field nurse case manager. Pending authorization for rehabilitation. Constipation: Looks like still has not had a BM. Add MiraLAX. Repeat with larger mag citrate and Dulcolax suppository. Back pain: Othered by some back pain overnight. Feeling better this morning. Concerns for systolic CHF, ischemic cardiomyopathy: Compensated CHF. Has transition to oral diuretic. Monitor for risk of hypervolemia. Hypokalemia: Mild hypokalemia on recheck BMP reviewed. Potassium 3.4. Requested replacement. Cellulitis bilateral extremities. Resolved. Completed antibiotics. - Venous ultrasound no dvt - Blood culture, reviewed, remains negative TREVON: Continues to improve. Repeat BMP. Multifactorial shock: Resolved. Reviewed blood pressures. Stop albumin infusions. Monitor for risk of fluid overload. - Concerns for septic shock associate with cellulitis. Continue treatment with antibiotic coverage with Zosyn and vancomycin. Monitor for risk of TREVON with antibiotic combination. - Concerns for cardiogenic shock, given JVD, lower extremity edema, shortness of breath, history of ischemic cardiomyopathy. Reviewed echocardiogram. Diminished LVEF, but unchanged from coronary angiogram in February. Mild global hypokinesis. Reviewed venous duplex, negative for DVT. Known CAD. History of CAD History of 03/06/2025 Conclusions 1. There is total occlusion coronary artery disease with three vessel disease. 2. Four coronary grafts visualized: three grafts patent, and one graft occluded. 3. The apex, mid posterior, mid septum, anterolateral, mid inferior moore are hypokinetic. 4. All other visualized moore normal. 5. Mild left ventricular systolic dysfunction. Ejection fraction of 45%. - Serial EKGs, serial troponins, tolerated monitoring - Aspirin, Plavix, statin Full code Lovenox for DVT prophylaxis PDMP PDMP Reviewed: Not Reviewed Attestations Medical Necessity Statement*: Continue admission for assessment management of discharge planning and arrangements after acute CHF following multifactorial shock, treatment of cellulitis, TREVON. and Moderate MDM includes number and complexity of problems actively addressed during encounter, amount and/or complexity of data reviewed/ordered and described risk of complication, morbidity or mortality of management as documented Diagnoses Cellulitis L03.90 Cardiogenic shock R57.0 Septic shock A41.9; R65.21 Acute kidney injury N17.9 CAD (coronary artery disease) I25.10 Congestive heart failure I50.9 Systolic CHF I50.20 Lower extremity edema R60.0
[2025-05-23] MEDS: oxyCODONE-APAP 5-325 mg Tablet PO (20:19)
[2025-05-23] MEDS: ondansetron 2 mg/ML SDV 2 mL 4 MG IVP (20:20)
[2025-05-23] MEDS: pantoprazole 40 mg SDV IVP (20:21)
[2025-05-24] VITALS (12 sets, daily range): BP systolic 108–153; BP diastolic 52–74; PULSE 60–98; RESP 15–18; TEMP 36.4–36.9; O2SAT 90–98
--- NOTE | 2025-05-24 03:51 | ECG_ITS ---
[facility] [place] Test Date: 2025-05-24 Pat Name: Gael Nevarez Department: Room: 254 Gender: Male Photographer Assistant: : 1950 Requested By: Haider Singh Order Number: [id number] Wing MD: Salvatore Watson M.D. Measurements Intervals [place] Rate: 62 P: 67 WV: 160 QRS: 50 QRSD: 104 T: 76 QT: 456 QTc: 463 Interpretive Statements SINUS RHYTHM WITH OCCASIONAL VENTRICULAR PREMATURE COMPLEXES Compared to ECG 05/15/2025 21:39:37 Ventricular premature complex(es) now present Sinus arrhythmia no longer present Electronically Signed On 05-25-2025 17:48:42 HEEL ATT[employer]ER by Salvatore Watson M.D. [email or web address]
[2025-05-24 04:32] LABS: Anion Gap 11.6 (5-19); Blood Urea Nitrogen 31 mg/dL (8-23); Calcium 9.5 mg/dL (8.5-10.5); Carbon Dioxide 36 mmol/L (22-29); Chloride 98 mmol/L (98-107); Glucose 104 mg/dL (65-115); Magnesium 2.2 mg/dL (1.7-2.3); Osmolality Calculated 301 mOsm/kg (285-295); Potassium 3.6 mmol/L (3.5-5.1); Sodium 142 mmol/L (136-145)
[2025-05-24] MEDS: oxyCODONE-APAP 5-325 mg Tablet PO ×3 (04:42→20:26)
--- NOTE | 2025-05-24 14:15 | P.PN_ITS ---
Subjective 2 Subjective: He reports he is doing all right today. Awaiting level to approval for rehabilitation. Vitals/I&O/Wt Last Vital Signs Temp 97.9 F 05/24/25 11:39 Pulse 67 05/24/25 11:39 Resp 18 05/24/25 13:28 BP 132/74 05/24/25 11:39 Pulse Ox 96 05/24/25 11:39 O2 Del Method Nasal Cannula 05/24/25 11:39 O2 Flow Rate 1 05/24/25 11:39 05/23/25 05/24/25 05/24/25 22:59 06:59 14:59 Intake Total 100 / 580 600 / 600 Output Total 650 / 650 700 / 1350 Balance -550 / -70 -700 / -770 600 / 600 Weight last 48 hrs Weight 71.894 kg Weight 74.389 kg Physical Exam 2 Const: COMMON NORMALS: patient oriented x3 and alert GENERAL APPEARANCE: c ooperative ORIENTATION/CONSCIOUSNESS: Yes awake HENMT: COMMON NORMALS: oropharynx normal Neck/C-Spine: COMMON NORMALS: no JVD Resp: COMMON NORMALS: normal respiratory effort and clear to auscultation bilaterally AUSCULTATION: clear to auscultation bilaterally Cardio: COMMON NORMALS: no JVD, regular rhythm, S1 normal heart sound present, S2 normal heart sound present and No murmurs present (Cardio) RHYTHM: regular rhythm HEART SOUNDS: S1 normal heart sound present and S2 normal heart sound present GI: COMMON NORMALS: Normal to inspection, nondistended, normoactive bowel sounds present, Soft to palpation and non-tender PALPATION: Yes Soft to palpation Extremity: COMMON NORMALS: no joint enlargement GENERAL: No edema Neuro: COMMON NORMALS: patient oriented x3 and moves all extremities S ENSORIUM/ORIENTATION: Yes alert Skin: COMMON NORMALS: no rashes or lesions noted GENERAL SKIN EXAM: no rashes or lesions noted Urinary Catheter Management: Franco: Cath Placed During This Visit: yes Reason for Continuing Indwelling Catheter: Acute Urinary Retention or Obstruction Urinary Catheter Date of Insertion: 05/15/25 Urinary Catheter Time of Insertion: 21:00 Data 05/20/25 02:03 05/24/25 03:49 A&P Assessment and plan 1. Cellulitis: 2. Cardiogenic shock: 3. Septic shock: 4. Acute kidney injury: 5. CAD (coronary artery disease): 6. Congestive heart failure: 7. Systolic CHF: 8. Lower extremity edema: Plan: Physical deconditioning: Being approved by insurance for SNF rehabilitation, pending completion of level 2 as discussed with him. Level 2 is still not approved yet as per discussion with onsite case manager. Pending approval for SNF for further rehabilitation. Would benefit from continued physical therapy and rehabilitation, strengthening to allow for greater independence and safety. Constipation: Continue bowel regimen. Back pain: Othered by some back pain overnight. Feeling better this morning. Concerns for systolic CHF, ischemic cardiomyopathy: Compensated CHF. Has transition to oral diuretic. Monitor for risk of hypervolemia. Hypokalemia: Mild hypokalemia on recheck BMP reviewed. Potassium 3.4. Requested replacement. Cellulitis bilateral extremities. Resolved. Completed antibiotics. - Venous ultrasound no dvt - Blood culture, reviewed, remains negative TREVON: Continues to improve. Repeat BMP. Multifactorial shock: Resolved. Reviewed blood pressures. Stop albumin infusions. Monitor for risk of fluid overload. - Concerns for septic shock associate with cellulitis. Continue treatment with antibiotic coverage with Zosyn and vancomycin. Monitor for risk of TREVON with antibiotic combination. - Concerns for cardiogenic shock, given JVD, lower extremity edema, shortness of breath, history of ischemic cardiomyopathy. Reviewed echocardiogram. Diminished LVEF, but unchanged from coronary angiogram in February. Mild global hypokinesis. Reviewed venous duplex, negative for DVT. Known CAD. History of CAD History of 03/06/2025 Conclusions 1. There is total occlusion coronary artery disease with three vessel disease. 2. Four coronary grafts visualized: three grafts patent, and one graft occluded. 3. The apex, mid posterior, mid septum, anterolateral, mid inferior moore are hypokinetic. 4. All other visualized moore normal. 5. Mild left ventricular systolic dysfunction. Ejection fraction of 45%. - Serial EKGs, serial troponins, tolerated monitoring - Aspirin, Plavix, statin Full code Lovenox for DVT prophylaxis PDMP PDMP Reviewed: Not Reviewed Attestations 2 Medical Necessity Statement*: Continue admission for assessment management of discharge planning and arrangements after acute CHF following multifactorial shock, treatment of cellulitis, TREVON. Diagnoses Cellulitis L03.90 Cardiogenic shock R57.0 Septic shock A41.9; R65.21 Acute kidney injury N17.9 CAD (coronary artery disease) I25.10 Congestive heart failure I50.9 Systolic CHF I50.20 Lower extremity edema R60.0
[2025-05-24] MEDS: pantoprazole 40 mg SDV IVP (20:27)
[2025-05-25] VITALS (14 sets, daily range): BP systolic 102–146; BP diastolic 52–70; PULSE 56–78; RESP 16–18; TEMP 36.4–36.8; O2SAT 90–96
[2025-05-25] MEDS: oxyCODONE-APAP 5-325 mg Tablet PO ×2 (02:40→17:33)
[2025-05-25] MEDS: polyethylene glycol 3350 Pkt 17 gm PO (17:34)
--- NOTE | 2025-05-25 19:13 | P.PN_ITS ---
Subjective 2 Subjective: He is about to work with therapy. Denies new complaints today. Vitals/I&O/Wt Last Vital Signs Temp 98.2 F 05/25/25 16:00 Pulse 77 05/25/25 16:00 Resp 18 05/25/25 17:33 BP 133/70 05/25/25 16:00 Pulse Ox 90 05/25/25 15:15 O2 Del Method Room Air 05/25/25 15:15 O2 Flow Rate 2 05/25/25 08:00 05/25/25 05/25/25 05/25/25 06:59 14:59 22:59 Intake Total 170 / 170 Output Total 500 / 1650 1000 / 1000 Balance -500 / -850 170 / 170 -1000 / -830 Weight last 48 hrs Weight 71.486 kg Weight 71.894 kg Physical Exam 2 Narrative: Being visited by his daughter. Const: COMMON NORMALS: patient oriented x3 and alert GENERAL APPEARANCE: c ooperative ORIENTATION/CONSCIOUSNESS: Yes awake HENMT: COMMON NORMALS: oropharynx normal Neck/C-Spine: COMMON NORMALS: no JVD Resp: COMMON NORMALS: normal respiratory effort and clear to auscultation bilaterally AUSCULTATION: clear to auscultation bilaterally Cardio: COMMON NORMALS: no JVD, regular rhythm, S1 normal heart sound present, S2 normal heart sound present and No murmurs present (Cardio) RHYTHM: regular rhythm HEART SOUNDS: S1 normal heart sound present and S2 normal heart sound present GI: COMMON NORMALS: Normal to inspection, nondistended, normoactive bowel sounds present, Soft to palpation and non-tender PALPATION: Yes Soft to palpation Extremity: COMMON NORMALS: no joint enlargement GENERAL: No edema Neuro: COMMON NORMALS: patient oriented x3 and moves all extremities S ENSORIUM/ORIENTATION: Yes alert Skin: COMMON NORMALS: no rashes or lesions noted GENERAL SKIN EXAM: no rashes or lesions noted Urinary Catheter Management: Franco: Cath Placed During This Visit: yes Reason for Continuing Indwelling Catheter: Acute Urinary Retention or Obstruction Urinary Catheter Date of Insertion: 05/15/25 Urinary Catheter Time of Insertion: 21:00 Data 05/20/25 02:03 05/24/25 03:49 A&P Assessment and plan 1. Cellulitis: 2. Cardiogenic shock: 3. Septic shock: 4. Acute kidney injury: 5. CAD (coronary artery disease): 6. Congestive heart failure: 7. Systolic CHF: 8. Lower extremity edema: Plan: Physical deconditioning: Discussed with watch case polisher, being approved by insurance for SNF rehabilitation, pending completion of level 2 as discussed with him. Level 2 is pending. Pending approval for SNF for further rehabilitation. Would benefit from continued physical therapy and rehabilitation, strengthening to allow for greater independence and safety. Constipation: Continue bowel regimen. Back pain: Back pain responding to hydrocodone. Concerns for systolic CHF, ischemic cardiomyopathy: Compensated CHF. Has transition to oral diuretic. Monitor for risk of hypervolemia. Hypokalemia: Mild hypokalemia was replaced Cellulitis bilateral extremities. Resolved. Completed antibiotics. - Venous ultrasound no dvt - Blood culture, reviewed, remains negative TREVON: Continues to improve. Repeat BMP. Multifactorial shock: Resolved. Reviewed blood pressures. Stop albumin infusions. Monitor for risk of fluid overload. - Concerns for septic shock associate with cellulitis. Continue treatment with antibiotic coverage with Zosyn and vancomycin. Monitor for risk of TREVON with antibiotic combination. - Concerns for cardiogenic shock, given JVD, lower extremity edema, shortness of breath, history of ischemic cardiomyopathy. Reviewed echocardiogram. Diminished LVEF, but unchanged from coronary angiogram in February. Mild global hypokinesis. Reviewed venous duplex, negative for DVT. Known CAD. History of CAD History of 03/06/2025 Conclusions 1. There is total occlusion coronary artery disease with three vessel disease. 2. Four coronary grafts visualized: three grafts patent, and one graft occluded. 3. The apex, mid posterior, mid septum, anterolateral, mid inferior moore are hypokinetic. 4. All other visualized moore normal. 5. Mild left ventricular systolic dysfunction. Ejection fraction of 45%. - Serial EKGs, serial troponins, tolerated monitoring - Aspirin, Plavix, statin Full code Lovenox for DVT prophylaxis PDMP PDMP Reviewed: Not Reviewed Attestations 2 Medical Necessity Statement*: Continue admission for assessment management of discharge planning and arrangements after acute CHF following multifactorial shock, treatment of cellulitis, TREVON. and Moderate MDM includes amount and/or complexity of data reviewed/ordered [ other healthcare professional discussion] as documented Diagnoses Cellulitis L03.90 Cardiogenic shock R57.0 Septic shock A41.9; R65.21 Acute kidney injury N17.9 CAD (coronary artery disease) I25.10 Congestive heart failure I50.9 Systolic CHF I50.20 Lower extremity edema R60.0
[2025-05-25] MEDS: pantoprazole 40 mg SDV IVP (22:13)
[2025-05-26] VITALS (15 sets, daily range): BP systolic 101–147; BP diastolic 52–72; PULSE 60–80; RESP 15–18; TEMP 36.4–37; O2SAT 90–94
[2025-05-26 04:21] LABS: Anion Gap 12.5 (5-19); Blood Urea Nitrogen 25 mg/dL (8-23); Calcium 9.4 mg/dL (8.5-10.5); Carbon Dioxide 36 mmol/L (22-29); Chloride 97 mmol/L (98-107); Glucose 99 mg/dL (65-115); Osmolality Calculated 298 mOsm/kg (285-295); Potassium 3.5 mmol/L (3.5-5.1); Sodium 142 mmol/L (136-145)
[2025-05-26] MEDS: polyethylene glycol 3350 Pkt 17 gm PO ×3 (04:44→17:44)
--- NOTE | 2025-05-26 09:37 | ECG_ITS ---
[employer] Test Date: 2025-05-26 Pat Name: Gael Nevarez Department: Room: 254 Gender: Male Victim Witness Administrator: : 1950 Requested By: Haider Singh Order Number: [id number] [place] MD: Rhiannon Denton M.D. Measurements Intervals [place] Rate: 75 P: 57 [place]: 143 QRS: 53 QRSD: 106 T: 75 QT: 407 QTc: 456 Interpretive Statements SINUS RHYTHM WITH OCCASIONAL VENTRICULAR PREMATURE COMPLEXES NONSPECIFIC ST & T-WAVE ABNORMALITY Compared to ECG 05/24/2025 03:51:14 T-wave abnormality now present Electronically Signed On 05-28-2025 20:30:31 [employer] by Rhiannon Denton M.D. [email or web address]
[2025-05-26] MEDS: oxyCODONE-APAP 5-325 mg Tablet PO (10:27)
--- NOTE | 2025-05-26 12:11 | P.PN_ITS ---
Subjective 2 Subjective: Worked with therapy yesterday. Having some left side chest wall pain, reproducible on palpation. Denies injury. EKG obtained. Reports again not having bowel movement for 4 days. Had previously declined bowel regimen medication, but now says that he will take it. Discussed with his nurse. Vitals/I&O/Wt Last Vital Signs Temp 98.1 F 05/26/25 07:39 Pulse 71 05/26/25 12:07 Resp 16 05/26/25 12:07 BP 147/66 05/26/25 07:39 Pulse Ox 92 05/26/25 12:07 O2 Del Method Nasal Cannula 05/26/25 12:07 O2 Flow Rate 1 05/26/25 12:07 05/25/25 05/26/25 05/26/25 22:59 06:59 14:59 Intake Total 120 / 120 Output Total 1350 / 1350 / 0 Balance -1350 / -1180 -700 / -1880 120 / 120 Weight last 48 hrs Weight 71.033 kg Weight 71.486 kg Physical Exam 2 Const: COMMON NORMALS: patient oriented x3 and alert GENERAL APPEARANCE: c ooperative ORIENTATION/CONSCIOUSNESS: Yes awake HENMT: COMMON NORMALS: oropharynx normal Neck/C-Spine: COMMON NORMALS: no JVD Chest: OTHER: No bruising redness or swelling on the left side of the chest, some reproducible tenderness on palpation of the upper lateral left pectoralis. Resp: COMMON NORMALS: normal respiratory effort and clear to auscultation bilaterally AUSCULTATION: clear to auscultation bilaterally Cardio: COMMON NORMALS: no JVD, regular rhythm, S1 normal heart sound present, S2 normal heart sound present and No murmurs present (Cardio) RHYTHM: regular rhythm HEART SOUNDS: S1 normal heart sound present and S2 normal heart sound present GI: COMMON NORMALS: Normal to inspection, nondistended, normoactive bowel sounds present, Soft to palpation and non-tender PALPATION: Yes Soft to palpation Extremity: COMMON NORMALS: no joint enlargement GENERAL: No edema Neuro: COMMON NORMALS: patient oriented x3 and moves all extremities S ENSORIUM/ORIENTATION: Yes alert Skin: COMMON NORMALS: no rashes or lesions noted GENERAL SKIN EXAM: no rashes or lesions noted Urinary Catheter Management: Franco: Cath Placed During This Visit: yes Reason for Continuing Indwelling Catheter: Acute Urinary Retention or Obstruction Urinary Catheter Date of Insertion: 05/15/25 Urinary Catheter Time of Insertion: 21:00 Data 05/20/25 02:03 05/26/25 03:12 A&P Assessment and plan 1. Cellulitis: 2. Cardiogenic shock: 3. Septic shock: 4. Acute kidney injury: 5. CAD (coronary artery disease): 6. Congestive heart failure: 7. Systolic CHF: 8. Lower extremity edema: Plan: Physical deconditioning: Discussed with case assembler, being approved by insurance for SNF rehabilitation, pending completion of level 2 as discussed with him. Level 2 is pending. Pending approval for SNF for further rehabilitation. Would benefit from continued physical therapy and rehabilitation, strengthening to allow for greater independence and safety. Constipation: Continue bowel regimen. He reports not having bowel movement in the last 4 days, previously refused bowel regimen medication, currently states he will take it. Discussed with his nurse. Chest pain: Reproduced on palpation. Obtain EKG, reviewed. On my interpretation with nonspecific ST-T changes, without sign of acute [place]. PVC. Pending official read. Back pain: Back pain responding to hydrocodone. Concerns for systolic CHF, ischemic cardiomyopathy: Compensated CHF. Has transition to oral diuretic. Monitor for risk of hypervolemia. Hypokalemia: Mild hypokalemia was replaced Cellulitis bilateral extremities. Resolved. Completed antibiotics. - Venous ultrasound no dvt - Blood culture, reviewed, remains negative TREVON: Continues to improve. Repeat BMP. Multifactorial shock: Resolved. Reviewed blood pressures. Stop albumin infusions. Monitor for risk of fluid overload. - Concerns for septic shock associate with cellulitis. Continue treatment with antibiotic coverage with Zosyn and vancomycin. Monitor for risk of TREVON with antibiotic combination. - Concerns for cardiogenic shock, given JVD, lower extremity edema, shortness of breath, history of ischemic cardiomyopathy. Reviewed echocardiogram. Diminished LVEF, but unchanged from coronary angiogram in February. Mild global hypokinesis. Reviewed venous duplex, negative for DVT. Known CAD. History of CAD History of 03/06/2025 Conclusions 1. There is total occlusion coronary artery disease with three vessel disease. 2. Four coronary grafts visualized: three grafts patent, and one graft occluded. 3. The apex, mid posterior, mid septum, anterolateral, mid inferior moore are hypokinetic. 4. All other visualized moore normal. 5. Mild left ventricular systolic dysfunction. Ejection fraction of 45%. - Serial EKGs, serial troponins, tolerated monitoring - Aspirin, Plavix, statin Full code Lovenox for DVT prophylaxis PDMP PDMP Reviewed: Not Reviewed Attestations 2 Medical Necessity Statement*: Continue admission for assessment management of discharge planning and arrangements after acute CHF following multifactorial shock, treatment of cellulitis, TREVON. Coding Level of Care Code Acute Code for Chg Fwd Diagnoses Cellulitis L03.90 Cardiogenic shock R57.0 Septic shock A41.9; R65.21 Acute kidney injury N17.9 CAD (coronary artery disease) I25.10 Congestive heart failure I50.9 Systolic CHF I50.20 Lower extremity edema R60.0
[2025-05-26] MEDS: ondansetron 2 mg/ML SDV 2 mL 4 MG IVP ×2 (12:54→19:59)
[2025-05-26] MEDS: pantoprazole 40 mg SDV IVP (20:41)
[2025-05-27 03:42] VITALS: BP 110/68; PULSE 70; RESP 17; TEMP 36.7; O2SAT 92
[2025-05-27 05:34] VITALS: PULSE 72
[2025-05-27 07:24] VITALS: BP 137/76; PULSE 63; RESP 15; TEMP 37; O2SAT 90
--- NOTE | 2025-05-27 10:10 | PC.SOCIAL ---
IMM Updated Updated pt on IMM. No questions voiced. Provided pt a copy. Initialed, dated, & timed copy in chart.
[2025-05-27 11:28] VITALS: BP 118/65; PULSE 55; RESP 16; TEMP 37.2; O2SAT 92
--- NOTE | 2025-05-27 14:35 | PC.OT ---
OT TREATMENT ATTEMPTED THIS P.M. PATIENT IS SOUND ASLEEP. WILL ATTEMPT AGAIN AT A LATER TIME.
[2025-05-27 15:27] VITALS: BP 96/57; PULSE 60; RESP 17; TEMP 36.8; O2SAT 92
--- NOTE | 2025-05-27 16:02 | PM.DCS ---
Discharge Providers Date of Admission: 05/15/25 18:04 Date of Discharge: May 27, 2025 Attending Provider at Admission: Arnoldo Dodge MD Attending Provider at Discharge: Haider Singh Primary Care Provider: Mary Sahu MD Diagnoses at Discharge Discharge Diagnosis 1. Cellulitis: 2. Cardiogenic shock: 3. Septic shock: 4. Acute kidney injury: 5. CAD (coronary artery disease): 6. Congestive heart failure: 7. Systolic CHF: 8. Lower extremity edema: Reason for Visit Reason for Visit: Hypotension, neck pain, sob Brief History: Gael Nevarez is a 74 year old male with a past medical history of ischemic cardiomyopathy, systolic CHF, history of CABG, history of CAD, hypertension, hyperlipidemia who presents to [facility] from [facility] due to low blood pressure. Patient tells me the [facility] sent him over because his blood pressures were low, he has been noticing lower extremity edema, more shortness of breath, feeling lightheaded, does have a cough, he has a couple of spots on his legs that have been draining, denies any chest pain, no palpitations does report a cough, no fevers, no chills, no abdominal pain, no diarrhea, he does report taking Lasix, for his shortness of breath, he tells me he lives at home with his daughter, he is in a wheelchair, he does not ambulate much but does transfer, no falls, does report acute on chronic back and neck pain, he has a history of neck surgeries Hospital Course Hospital Course He was admitted and treated for respiratory failure, fluid overload, received IV diuresis, with acute CHF, echocardiogram with noted ejection fraction 45 to 50%, mild MVR, mild TVR, mild PVR, with recent stress test in December, with medium sized area of reversible ischemia in inferior lateral wall with coronary angiography in February with CALL MANAGER with chronic occlusion with three-vessel disease 3 patent grafts 1 graft occluded ejection fraction 45% at that time. Continue medical management. Volume status improved, transition to oral diuretic. TREVON during hospitalization noted improving. November hospitalization also treated for lower extremity cellulitis. With finding of deconditioning continued with physical therapy and arrangements made for him to continue rehabilitation at SNF. Physical Exam Const: COMMON NORMALS: patient oriented x3 and alert GENERAL APPEARANCE: cooperative ORIENTATION/CONSCIOUSNESS: Yes awake HENMT: COMMON NORMALS: oropharynx normal Neck/C-Spine: COMMON NORMALS: no JVD Chest: OTHER: No bruising redness or swelling on the left side of the chest, some reproducible tenderness on palpation of the upper lateral left pectoralis. Resp: COMMON NORMALS: normal respiratory effort and clear to auscultation bilaterally AUSCULTATION: clear to auscultation bilaterally Cardio: COMMON NORMALS: no JVD, regular rhythm, S1 normal heart sound present, S2 normal heart sound present and No murmurs present (Cardio) RHYTHM: regular rhythm HEART SOUNDS: S1 normal heart sound present and S2 normal heart sound present GI: COMMON NORMALS: Normal to inspection, nondistended, normoactive bowel sounds present, Soft to palpation and non-tender PALPATION: Yes Soft to palpation Extremity: COMMON NORMALS: no joint enlargement GENERAL: No edema Neuro: COMMON NORMALS: patient oriented x3 and moves all extremities SENSORIUM/ORIENTATION: Yes alert Skin: COMMON NORMALS: no rashes or lesions noted GENERAL SKIN EXAM: no rashes or lesions noted Urinary Catheter Management: Franco: Cath Placed During This Visit: yes Reason for Continuing Indwelling Catheter: Accurate Measurement of Urinary Output in Critically Ill Patients Urinary Catheter Date of Insertion: 05/15/25 Urinary Catheter Time of Insertion: 21:00 Discharge Data Studies Completed and Pending Completed Studies During Hospitalization Category Date Time Status XR chest 1V portable [id number] Stat Exams 05/15/25 15:47 [place] [id number] Routine Ultrasound 05/15/25 20:32 Completed CV. echo complete* [id number] Routine Ultrasound 05/16/25 13:44 Completed Radiology Impressions Chest X-Ray 05/15/25 15:47 IMPRESSION: Stable chest without acute abnormality. Laboratory Results WBC 6.72 10^3/uL (3.29-11.43) 05/20/25 02:03 RBC 3.20 10^6/uL (3.85-5.65) L 05/20/25 02:03 Hgb 9.70 g/dL (11.27-16.99) L 05/20/25 02:03 Hct 31.0 % (37-53) L 05/20/25 02:03 MCV 96.9 fl (82-101) 05/20/25 02:03 MCH 30.3 pg (27-33) 05/20/25 02:03 MCHC 31.3 g/dL (30-55) 05/20/25 02:03 RDW 14.1 % (12.1-15.1) 05/20/25 02:03 Plt Count 121 10^3/cmm (157-399) L 05/20/25 02:03 MPV 11.2 fL (7.4-10.4) H 05/20/25 02:03 Neut % (Auto) 69.2 % 05/20/25 02:03 Lymph % (Auto) 12.1 % 05/20/25 02:03 [place] % (Auto) 15.9 % 05/20/25 02:03 Eos % (Auto) 1.9 % 05/20/25 02:03 Baso % (Auto) 0.6 % 05/20/25 02:03 Neut # (Auto) 4.65 10^3/uL (1.8-7.7) 05/20/25 02:03 Lymph # (Auto) 0.8 10^3/uL (0.8-4.8) 05/20/25 02:03 [place] # (Auto) 1.1 10^3/uL (0.2-0.9) H 05/20/25 02:03 Eos # (Auto) 0.1 10^3/uL (0.0-0.8) 05/20/25 02:03 Baso # (Auto) 0.0 10^3/uL (0.0-0.1) 05/20/25 02:03 Nucleated RBC % (auto) 0 % 05/20/25 02:03 Nucleated RBCs # 0.0 /100WBC 05/20/25 02:03 Specimen Type Arterial 05/15/25 19:09 Sample Site Radial, left 05/15/25 19:09 ABG pH 7.36 (7.35-7.45) 05/15/25 19:09 ABG pCO2 46.1 mmHg (35-45) H 05/15/25 19:09 ABG pO2 72.2 mmHg (80.0-100.0) L 05/15/25 19:09 ABG PO2/FiO2 Ratio 225 05/15/25 19:09 ABG HCO3 26.3 mmol/L (22-26) H 05/15/25 19:09 ABG Base Excess 0.5 mmol/L (-2.0-2.0) 05/15/25 19:09 [place] Test Pos 05/15/25 19:09 Hematocrit 35.0 % (42-52) L 05/15/25 19:09 O2 Delivery Device Nc 05/15/25 19:09 O2 Liters/Min 3.0 % 05/15/25 19:09 FiO2 32.0 % 05/15/25 19:09 Tank Shop Supervisor ID [email or web address] 05/15/25 19:09 Sodium 142 mmol/L (136-145) 05/26/25 03:12 Potassium 3.5 mmol/L (3.5-5.1) 05/26/25 03:12 Chloride 97 mmol/L (98-107) L 05/26/25 03:12 Carbon Dioxide 36 mmol/L (22-29) H 05/26/25 03:12 Anion Gap 12.5 (5-19) 05/26/25 03:12 BUN 25 mg/dL (8-23) H 05/26/25 03:12 Creatinine 1.0 mg/dL (0.7-1.2) 05/26/25 03:12 GFR Calculation Not Reportable 05/26/25 03:12 Glucose 99 mg/dL (65-115) 05/26/25 03:12 POC Glucose 119 mg/dL (70-110) H 05/27/25 11:29 Estimat Average Glucose 91 05/15/25 21:35 Hemoglobin A1c 4.8 % (4.0-6.0) 05/15/25 21:35 Calculated Osmolality 298 mOsm/kg (285-295) H 05/26/25 03:12 Lactic Acid 2.7 mmol/L (0.5-2.2) H 05/15/25 16:22 Lactic Acid (Sepsis) 1.1 mmol/L (0.5-2.2) 05/15/25 21:35 Calcium 9.4 mg/dL (8.5-10.5) 05/26/25 03:12 Phosphorus 3.4 mg/dL (2.5-4.5) 05/18/25 02:36 Magnesium 2.2 mg/dL (1.7-2.3) 05/24/25 03:49 Total Bilirubin 0.4 mg/dL (0.15-1.2) 05/18/25 02:36 AST 8 U/L (0-40) 05/18/25 02:36 ALT 7 U/L (0-41) 05/18/25 02:36 Alkaline Phosphatase 59 U/L (40-130) 05/18/25 02:36 Troponin T Baseline 33 ng/L (0-15) H 05/15/25 16:22 Troponin T 120 Minute 31.16 ng/L (0-15) H 05/15/25 21:35 Delta Troponin T -1.84 ABS# (0-10) L 05/15/25 21:35 Troponin T Hi Sens 6Hr 32.87 ng/L (0-15) H 05/16/25 00:33 Troponin T Hi Sens 6Hr Delta -0.13 ng/L (0-12) L 05/16/25 00:33 NT-Pro-B Natriuret Pep 715 pg/mL (0-125) H 05/16/25 04:32 Total Protein 6.3 g/dL (6.6-8.7) L 05/18/25 02:36 Albumin 4.4 g/dL (3.5-5.2) 05/18/25 02:36 Globulin 1.9 g/dL (1.3-4.6) 05/18/25 02:36 Triglycerides 202 mg/dL (0-150) H 05/15/25 21:35 Cholesterol 139 mg/dL (0-200) 05/15/25 21:35 LDL Cholesterol, Calc 48 mg/dL (50-129) L 05/15/25 21:35 HDL Cholesterol 51 mg/dL (60-100) L 05/15/25 21:35 LDL/HDL Ratio 0.94 RATIO (0.00-3.22) 05/15/25 21:35 Cholesterol/HDL Ratio 2.73 mg/dL (1.0-5.00) 05/15/25 21:35 Procalcitonin 0.12 ng/mL (0-0.5) 05/15/25 16: TSH 0.33 uIU/mL (0.27-4.20) 05/15/25 21:35 Urine Color Yellow (Yellow) 05/16/25 04:30 Urine Appearance Clear (CLEAR) 05/16/25 04:30 Urine pH 5.0 (5-7) 05/16/25 04:30 Ur Specific [place] 1.007 (1.005-1.030) 05/16/25 04:30 Urine Protein Negative (Negative) 05/16/25 04:30 Urine Glucose (UA) Negative (Normal) 05/16/25 04:30 Urine Ketones Negative (Negative) 05/16/25 04:30 Urine Blood 1+ (Negative) A 05/16/25 04:30 Urine Nitrate Negative (Negative) 05/16/25 04:30 Urine Bilirubin Negative (Negative) 05/16/25 04:30 Urine Urobilinogen 0.2 mg/dL (Negative) 05/16/25 04:30 Ur Leukocyte Esterase Trace (Negative) A 05/16/25 04:30 Urine RBC 0-2 /hpf (0-2) 05/16/25 04:30 Urine WBC 0-5 /hpf (0-5) 05/16/25 04:30 Ur Squamous Epith Cells 0-5 /hpf (0-5) 05/16/25 04:30 Amorphous Sediment Not Reportable 05/16/25 04:30 Urine Bacteria None seen /hpf (NONE) 05/16/25 04:30 Hyaline Casts 4.52 /lpf 05/16/25 04:30 Vancomycin Trough 22.7 ug/mL (10-15) H 05/18/25 19:58 Influenza A (PCR) Negative (Negative) 05/15/25 15:56 Influenza Type B (PCR) Negative (Negative) 05/15/25 15:56 RSV (PCR) Negative (Negative) 05/15/25 15:56 SARS-CoV-2 (PCR) Negative (Negative) 05/15/25 15:56 Vitals Last Vital Signs Temp 98.9 F 05/27/25 11:28 Pulse 55 L 05/27/25 11:28 Resp 16 05/27/25 11:28 BP 118/65 05/27/25 11:28 Pulse Ox 92 05/27/25 11:28 O2 Del Method Room Air 05/27/25 14:03 O2 Flow Rate 3 05/27/25 03:42 Discharge Plan Discharge Patient Disposition: Xfer SNF Condition: Stable Prescriptions: New midodrine 5 mg Tablet 10 mg PO Q6H Qty: 90 0RF aspirin 81 mg Tablet,Delayed Release (Dr/Ec) 81 mg PO DAILY Qty: 90 0RF potassium chloride 10 mEq capsule, extended release 10 meq PO DAILY Qty: 30 0RF Continued leflunomide 20 mg tablet 20 mg PO DAILY Qty: 90 1RF prednisone 5 mg tablet 5 mg PO DAILY Qty: 90 1RF pregabalin 150 mg capsule 150 mg PO BID Qty: 180 1RF (DME) hinged knee brace See Rx Instructions .Route .MEDSUPPLY Qty: 1 0RF Rx Instructions: As directed cilostazol 100 mg Tablet 100 mg PO BID atorvastatin 80 mg Tablet 80 mg PO QPM clopidogrel 75 mg Tablet 75 mg PO DAILY pantoprazole 40 mg Tablet,Delayed Release (Dr/Ec) 40 mg PO QAM ferrous sulfate 325 mg (65 mg iron) Tablet 162.5 mg PO QAM cholecalciferol (vitamin D3) 25 mcg (1,000 unit) Tablet 25 mcg PO DAILY baclofen 10 mg tablet 10 mg PO BID PRN (Reason: Muscle Spasm) sennosides [senna] 8.6 mg Tablet 8.6 mg PO DAILY PRN (Reason: Constipation) docusate sodium [Colace] 100 mg Capsule 100 mg PO BID furosemide [Lasix] 40 mg tablet 40 mg PO DAILY Qty: 30 0RF Discontinued carvedilol 6.25 mg Tablet 3.125 mg PO BID Rx Instructions: must administer with a meal/food lisinopril 20 mg Tablet 30 mg PO DAILY isosorbide mononitrate 30 mg tablet extended release 24 hr 30 mg PO DAILY Qty: 30 1RF Discharge Order = DC NOW: Discharge Order (Routine); Ordered 05/27/25 Ordered By: Haider Singh Referrals: [facility] [Outside] Mary Sahu MD [Primary Care Provider, Family Practice] - 4-7 days Nirali Silverman NP [Nurse Practitioner, Cardiology] - 06/13/25 1:00 pm Referral Note: Patient Instructions: Potassium Chloride (By mouth), Aspirin (By mouth), Midodrine (By mouth), Opioid Safety, Patient Portal & Lesly Instructions Activity Restrictions/Additional Instructions: Follow-up with your primary provider for reassessment after congestive heart failure exacerbation as well as cellulitis, acute kidney injury. You had mildly low potassium which required replacement, supplement this provided at discharge, have your primary doctor recheck your electrolytes. Also follow-up for coronary disease and continue aspirin Plavix and statin. Follow-up for reassessment with cardiology. Monitor blood pressures, avoid hypotension. Discontinue lisinopril, Imdur, carvedilol for now, continue midodrine. Consider resuming some of his medications and de-escalating midodrine if your blood pressure is rising higher and allows for safe resumption of these medications which can lower blood pressure. Long-term target blood pressure 120/80. Seek medical attention in case of worsening or new concerning symptoms. Discharge Attestations Time Spent in Discharge Care*: greater than 30 min Quality Metrics Clinical Quality Measures [ No reported AMI, CVA or VTE this stay] Coding Level of Care Code 50992 Total time (in minutes) for Discharge: 40 Diagnoses Cellulitis L03.90 Cardiogenic shock R57.0 Septic shock A41.9; R65.21 Acute kidney injury N17.9 CAD (coronary artery disease) I25.10 Congestive heart failure I50.9 Systolic CHF I50.20 Lower extremity edema R60.0
== END 2025-05-27 17:20 | disposition skilled nursing facility (03) | DRG 871 ==
LOC: ER 17:22 → ER IP 18:05 → ICU 18:52 → CSU 05-16 14:46 → MEDSURG 05-22 01:02
PROVIDERS: Admitting Provider Family Medicine; Emergency Provider Emergency Medicine; PCP Family Medicine; Visit Provider Internal Medicine
DX: A41.9 Sepsis, unspecified organism (principal); I50.21 Acute systolic (congestive) heart failure; J96.90 Respiratory failure, unspecified, unspecified whether with hypoxia or hypercapnia; R65.21 Severe sepsis with septic shock; R57.0 Cardiogenic shock; L03.116 Cellulitis of left lower limb; L03.115 Cellulitis of right lower limb; N17.9 Acute kidney failure, unspecified; Z87.891 Personal history of nicotine dependence; I25.10 Atherosclerotic heart disease of native coronary artery without angina pectoris; Z95.1 Presence of aortocoronary bypass graft; I11.0 Hypertensive heart disease with heart failure; E78.5 Hyperlipidemia, unspecified; D64.9 Anemia, unspecified; Z90.49 Acquired absence of other specified parts of digestive tract; Z82.49 Family history of ischemic heart disease and other diseases of the circulatory system; Z99.81 Dependence on supplemental oxygen; I95.9 Hypotension, unspecified; K59.00 Constipation, unspecified; E87.6 Hypokalemia; M54.9 Dorsalgia, unspecified; G89.29 Other chronic pain; M54.2 Cervicalgia
CPT/HCPCS: 36415; 36416; 36600; 51702; 71045; 80048; 80053; 80061; 80202; 81001; 82803; 82962; 83036; 83605; 83735; 83880; 84100; 84145; 84443; 84484; 85025; 87040; 87637; 93005; 93306; 93970; 94640; 94664; 96372; 96374; 97110; 97162; 97167; 97530; 97535; 99285; J1171; J1650; J1938; J2270; J2405; J2470; J2543; J3372; J3373; J7030; J7040; J7050; J9999; P9046

== ENCOUNTER 2025-06-12 13:08 | Inpatient (IN) | payer OTHER, SELFPAY ==
[2025-06-12] VITALS (58 sets, daily range): BP systolic 87–144; BP diastolic 37–80; PULSE 76–92; RESP 14–22; TEMP 36.7–38.3; O2SAT 74–99; BMI 25.5
--- NOTE | 2025-06-12 12:59 | XR_ITS ---
WS: [id number] Portable AP semiupright chest, 06/12/2025 Clinical Data: Weakness Comparison: Portable chest, 05/15/2025 Findings: No nodules, masses or effusions are seen. The heart is normal. The pulmonary vascularity is not increased. No pneumonia or pneumothorax is seen. There are midline sternotomy sutures. The aortic arch and descending thoracic aorta show mild tortuosity. 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 There is internal fixation of an old proximal left humeral fracture. XR/XR chest 1V portable [id number] Impression: Atherosclerosis.
--- NOTE | 2025-06-12 13:20 | W.ED.WEAKNES ---
HPI - Weakness General: Chief complaint: Weakness Stated complaint: Fever, Poss Sepsis Time Seen by Provider: 06/12/25 13:12 History of Present Illness: 74-year-old man with a history of coronary artery disease, congestive heart failure, peripheral arterial disease, anemia, anxiety, who presents to the emergency room with weakness, shortness of breath, oxygen requirement. Some mild confusion. EMS reports he is requiring oxygen. I spoke with family and they said he had been placed in rehab up until yesterday and had been discharged early because of some issues with insurance. He reports no chest pain. No abdominal pain. No vomiting. No focal motor deficits. Related Data Home Medications ?Medication ?Instructions ?Recorded ?Confirmed atorvastatin 80 mg tablet 80 mg PO QPM 07/23/23 05/16/25 cholecalciferol (vitamin D3) 25 25 mcg PO DAILY 07/23/23 05/16/25 mcg (1,000 unit) tablet cilostazol 100 mg tablet 100 mg PO BID 07/23/23 05/16/25 clopidogrel 75 mg tablet 75 mg PO DAILY 07/23/23 05/16/25 ferrous sulfate 325 mg (65 mg 162.5 mg PO QAM 07/23/23 05/16/25 iron) tablet pantoprazole 40 mg tablet,delayed 40 mg PO QAM 07/23/23 05/16/25 release baclofen 10 mg tablet 10 mg PO BID PRN Muscle Spasm 01/08/25 05/16/25 docusate sodium 100 mg capsule 100 mg PO BID 05/08/25 05/16/25 (Colace) sennosides 8.6 mg tablet (senna) 8.6 mg PO DAILY PRN Constipation 05/08/25 05/16/25 Previous Rx's ?Medication ?Instructions ?Recorded hinged knee brace #1 ea 04/23/24 leflunomide 20 mg tablet 20 mg PO DAILY #90 tabs 03/26/25 prednisone 5 mg tablet 5 mg PO DAILY joint pain #90 tabs 03/26/25 pregabalin 150 mg capsule 150 mg PO BID #180 caps 03/26/25 furosemide 40 mg tablet (Lasix) 40 mg PO DAILY #30 tabs 05/08/25 aspirin 81 mg tablet,delayed 81 mg PO DAILY #90 tabs 05/27/25 release midodrine 5 mg tablet 10 mg (2 x 5 mg) PO Q6H #90 tabs 05/27/25 potassium chloride 10 mEq 10 meq PO DAILY #30 caps 05/27/25 capsule,extended release Allergies Allergy/AdvReac Type Severity Reaction Status Date / Time No Known Allergies Allergy Verified 05/15/25 15:39 Review of Systems Narrative: Constitutional symptoms: Negative except as documented in HPI. Skin symptoms: Negative except as documented in HPI. Eye symptoms: Negative except as documented in HPI. ENMT symptoms: Negative except as documented in HPI. Respiratory symptoms: Negative except as documented in HPI. Cardiovascular symptoms: Negative except as documented in HPI. Gastrointestinal symptoms: Negative except as documented in HPI. Genitourinary symptoms: Negative except as documented in HPI. Musculoskeletal symptoms: Negative except as documented in HPI. Neurologic symptoms: Negative except as documented in HPI. Psychiatric symptoms: Negative except as documented in HPI. Endocrine symptoms: Negative except as documented in HPI. PFS ED PFSH: Medical History (Updated 06/12/25 @ 15:28 by Gwen Harman MD) Immunization counseling High risk medication use Polyarthralgia Anxiety Acute anxiety Anemia CAD (coronary artery disease) History of hypertension Hyperlipidemia Abdominal hernia Claudication PAD (peripheral artery disease) Stenosis of artery of left lower extremity Fall at home Recurrent right knee instability Osteoarthritis of right knee Surgical History H/O gastric bypass x4 History of eye surgery History of neck surgery x2 History of shoulder surgery left History of cholecystectomy Previous back surgery x5 S/P hernia surgery Family History Other Anemia Cancer Hypertension Denies family history of Lupus (systemic lupus erythematosus) Rheumatoid arthritis Diabetes CAD (coronary artery disease) Migraines Chronic kidney disease (CKD) Stroke Social History Smoking and tobacco/nicotine status: former use of tobacco/nicotine Physical Exam Narrative: EXAM NARRATIVE: General: Alert, no acute distress. Skin: Warm, dry. Head: Normocephalic, atraumatic. Neck: Supple, trachea midline. Eye: Extraocular movements are intact. Ears, nose, mouth and throat: Tacky oral mucosa Cardiovascular: Regular, Normal peripheral perfusion. Respiratory: Lungs are clear to auscultation, respirations are non-labored, breath sounds are equal, Symmetrical chest wall expansion. Gastrointestinal: Soft, Nontender, Non distended Musculoskeletal: Normal ROM, no deformity. Neurological: Alert and oriented, No focal neurological deficit observed. Psychiatric: Cooperative, appropriate mood & affect. Course Vital Signs: Vital signs: Vital Signs Temperature 98.0 F 06/12/25 13:13 Pulse Rate 89 06/12/25 13:13 Respiratory Rate 14 06/12/25 13:13 Blood Pressure 91/46 06/12/25 14:30 Pulse Oximetry 96 06/12/25 14:30 Oxygen Delivery Me thod Nasal Cannula 06/12/25 13:13 Oxygen Flow Rate 3 06/12/25 13:13 MDM - Weakness Medical Decision Making Medical decision making Patient's reason for coming to the emergency room: Weakness, hypoxemia Social determinants: Patient is retired. A family member is present briefly. I reviewed the patient's medical record. 74-year-old man with a history of coronary artery disease, congestive heart failure, peripheral arterial disease, anemia, anxiety. Patient had extended admission recently. He was treated for cellulitis, cardiogenic shock, septic shock, acute kidney injury, coronary artery disease, congestive heart failure and edema. He was sent to long-term for acute rehabilitation. He came home less than 24 hours ago. Family says this is because of some sort of insurance issues and they did not feel he was ready to come home. February echo that showed an EF of 45 to 50%. Mild valvular regurg. I reviewed the patient's current home meds Patient is not anticoagulated. Alternate historians: Obtained history from family member as well. Differential diagnosis: including but not limited to and based on the above HPI, review of systems and physical exam: Orders placed to evaluate differential diagnosis based on the above differential, HPI and physical exam EKG: Time 1341. Rate 82. Normal sinus rhythm, No ST-T changes, no ectopy, normal DE & QRS intervals, This was reviewed and interpreted by myself the ER physician at 1345 Repeat EKG: Time 1447. Rate 93. Normal sinus rhythm, No ST-T changes, occasional PVCs. Normal DE & QRS intervals, This was reviewed and interpreted by myself the ER physician at 1450. No changes from EKG done previously today in the emergency room other than some occasional PVCs Chest x-ray: No acute process. No infiltrate. No pneumothorax. This was reviewed and interpreted by myself the emergency room physician. I also reviewed the radiology report. Lab Review: Laboratory results were reviewed and interpreted by myself the emergency room physician. Significant leukocytosis with a white count of 16,000 and a left shift at 88%. Hemoglobin is 10.9. Acute renal failure with BUN and creatinine of 43 and 2.5. He had normalized at discharge previously. Urinalysis is positive for infection with greater than 100 white cells and 4+ bacteria. Nitrate negative. Patient is positive for COVID. Assessment of risk: Level of risk: High risk patient. Multiple comorbidities. Recent hospital admission Hospitalization considerations: Patient is being admitted. Reexamination: Patient's blood pressure has improved some with fluids now. Blood pressure is now 139/73. He is still requiring 3 L nasal cannula. No altered mental status. No focal motor deficits. He is complaining of a headache. Assessment and plan: Sepsis Urinary tract infection COVID-19 Hypoxemia Acute on chronic renal failure Leukocytosis Lactic acidosis Hypotension ?IV Solu-Medrol for hypoxemia related to COVID ?Patient requiring 3 L nasal cannula. -2.5 L normal saline bolus. Fluid volumes based on ideal body weight. -Broad-spectrum antibiotics were administered. Meropenem and Zyvox -Sepsis quality measures. -Lactic acid with a reflex was ordered. -Blood cultures were ordered. ?I reevaluated the patient's volume status after sepsis fluids were given. -I discussed the patient with the hospitalist on-call who is admitting the patient. - Discussed findings and plan with patient. Answered any questions. - All laboratory values were reviewed and interpreted personally by myself, the ER physician - All imaging was reviewed and interpreted personally by myself, the ER physician. - Evaluation and treatment of this problem were appropriate in the emergency setting Critical Care: -I spent a total of 44 minutes of critical care time managing the patient, independent of any other practitioner. -The time involved in the performance of separately reportable procedures was not counted towards critical care time. Lab Data 06/12/25 12:40 06/12/25 12:40 Radiology Impressions Chest X-Ray 06/12/25 12:59 Impression: Atherosclerosis. Laboratory Results WBC 16.26 10^3/uL (3.29-11.43) H 06/12/25 12:40 RBC 3.67 10^6/uL (3.85-5.65) L 06/12/25 12:40 Hgb 10.90 g/dL (11.27-16.99) L 06/12/25 12:40 Hct 34.9 % (37-53) L 06/12/25 12:40 MCV 95.1 fl (82-101) 06/12/25 12:40 MCH 29.7 pg (27-33) 06/12/25 12:40 MCHC 31.2 g/dL (30-55) 06/12/25 12:40 RDW 14.8 % (12.1-15.1) 06/12/25 12:40 Plt Count 187 10^3/cmm (157-399) 06/12/25 12:40 MPV 10.7 fL (7.4-10.4) H 06/12/25 12:40 Neut % (Auto) 88.3 % 06/12/25 12:40 Lymph % (Auto) 3.3 % 06/12/25 12:40 [place] % (Auto) 7.1 % 06/12/25 12:40 Eos % (Auto) 0.4 % 06/12/25 12:40 Baso % (Auto) 0.5 % 06/12/25 12:40 Neut # (Auto) 14.36 10^3/uL (1.8-7.7) H 06/12/25 12:40 Lymph # (Auto) 0.5 10^3/uL (0.8-4.8) L 06/12/25 12:40 [place] # (Auto) 1.2 10^3/uL (0.2-0.9) H 06/12/25 12:40 Eos # (Auto) 0.1 10^3/uL (0.0-0.8) 06/12/25 12:40 Baso # (Auto) 0.1 10^3/uL (0.0-0.1) 06/12/25 12:40 Nucleated RBC % (auto) 0 % 06/12/25 12:40 Nucleated RBCs # 0.0 /100WBC 06/12/25 12:40 Sodium 139 mmol/L (136-145) 06/12/25 12:40 Potassium 5.3 mmol/L (3.5-5.1) H 06/12/25 12:40 Chloride 99 mmol/L (98-107) 06/12/25 12:40 Carbon Dioxide 24 mmol/L (22-29) 06/12/25 12:40 Anion Gap 21.3 (5-19) H 06/12/25 12:40 BUN 43 mg/dL (8-23) H 06/12/25 12:40 Creatinine 2.5 mg/dL (0.7-1.2) H 06/12/25 12:40 GFR Calculation Not Reportable 06/12/25 12:40 Glucose 101 mg/dL (65-115) 06/12/25 12:40 Calculated Osmolality 299 mOsm/kg (285-295) H 06/12/25 12:40 Lactic Acid 2.8 mmol/L (0.5-2.2) H 06/12/25 12:40 Calcium 9.6 mg/dL (8.5-10.5) 06/12/25 12:40 Total Bilirubin 0.3 mg/dL (0.15-1.2) 06/12/25 12:40 AST 15 U/L (0-40) 06/12/25 12:40 ALT 10 U/L (0-41) 06/12/25 12:40 Alkaline Phosphatase 94 U/L (40-130) 06/12/25 12:40 Troponin T Baseline 56 ng/L (0-15) H 06/12/25 12:40 Troponin T 60 Minute 52.08 ng/L (0-15) H 06/12/25 13:43 Delta Troponin T -3.92 ABS# (0-10) L 06/12/25 13:43 C-Reactive Protein 36.7 mg/L (0.0-4.9) H 06/12/25 12:40 NT-Pro-B Natriuret Pep 1060 pg/mL (0-125) H 06/12/25 12:40 Total Protein 6.1 g/dL (6.6-8.7) L 06/12/25 12:40 Albumin 4.1 g/dL (3.5-5.2) 06/12/25 12:40 Globulin 2.0 g/dL (1.3-4.6) 06/12/25 12:40 Procalcitonin 0.43 ng/mL (0-0.5) 06/12/25 12:40 Urine Color Yellow (Yellow) 06/12/25 14: Urine Appearance Cloudy (CLEAR) A 06/12/25 14: Urine pH 5.0 (5-7) 06/12/25 14:27 Ur Specific [place] 1.011 (1.005-1.030) 06/12/25 14:27 Urine Protein 3+ (Negative) A 06/12/25 14: Urine Glucose (UA) Negative (Normal) 06/12/25 14: Urine Ketones Negative (Negative) 06/12/25 14: Urine Blood 1+ (Negative) A 06/12/25 14: Urine Nitrate Negative (Negative) 06/12/25 14: Urine Bilirubin Negative (Negative) 06/12/25 14: Urine Urobilinogen 0.2 mg/dL (Negative) 06/12/25 14:27 Ur Leukocyte Esterase 2+ (Negative) A 06/12/25 14: Urine RBC 0-2 /hpf (0-2) 06/12/25 14:27 Urine WBC >100 /hpf (0-5) H 06/12/25 14:27 Ur Squamous Epith Cells 0-5 /hpf (0-5) 06/12/25 14: Amorphous Sediment Not Reportable 06/12/25 14:27 Urine Bacteria 4+ /hpf (NONE) H 06/12/25 14:27 Hyaline Casts 35.98 /lpf 06/12/25 14:27 Influenza A (PCR) Negative (Negative) 06/12/25 12:40 Influenza Type B (PCR) Negative (Negative) 06/12/25 12:40 RSV (PCR) Negative (Negative) 06/12/25 12:40 SARS-CoV-2 (PCR) Positive (Negative) A 06/12/25 12:40 All radiology interpretation(s) finalized by discharge Discharge Plan Discharge Patient Disposition: Admitted As Inpatient Clinical Impression: Sepsis, Urinary tract infection, Acute on chronic renal failure, COVID-19, Hypoxemia, Hypotension, Leukocytosis, Lactic acidosis Condition: Stable Coding Level of Care Code ED Pick And Shovel Man for Obey Ochoa
--- NOTE | 2025-06-12 13:23 | ECG_ITS ---
[employer] Test Date: 2025-06-12 Pat Name: Gael Nevarez Department: Room: Gender: Male Light Out Examiner: : 1950 Requested By: Gwen Barnett Order Number: [id number] Wing MD: Rhiannon Denton M.D. Measurements Intervals [place] Rate: 82 P: 62 [place]: 163 QRS: 42 QRSD: 98 T: 79 QT: 356 QTc: 418 Interpretive Statements SINUS RHYTHM Compared to ECG 05/26/2025 09:37:51 Ventricular premature complex(es) no longer present T-wave abnormality no longer present Electronically Signed On 06-12-2025 21:36:30 COMMUNITY SERVICE SPECIALIST by Rhiannon Denton M.D. [email or web address]
[2025-06-12 13:32] LABS: Hematocrit 34.9 % (37-53); Hemoglobin 10.90 g/dL (11.27-16.99); Mean Corpuscular HGB Conc 31.2 g/dL (30-55); Mean Corpuscular Hemoglobin 29.7 pg (27-33); Mean Corpuscular Volume 95.1 fl (82-101); Nucleated Red Blood Cells % 0 %; Platelet Count 187 10^3/cmm (157-399); Red Blood Count 3.67 10^6/uL (3.85-5.65); White Blood Count 16.26 10^3/uL (3.29-11.43)
[2025-06-12 13:51] LABS: Lactic Sepsis W/Reflex 2.8 mmol/L (0.5-2.2)
[2025-06-12 13:52] LABS: Troponin(5th) Baseline 56 ng/L (0-15)
[2025-06-12 14:01] LABS: NT Pro B Type Natriuretic Pept 1060 pg/mL (0-125); Procalcitonin 0.43 ng/mL (0-0.5)
--- OUTSIDE RECORDS SUMMARY | 2025-06-12 14:04 | XMS_ITS | Clinical Summary ---
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 Gender Identity Not on file Sexual Orientation Not on file Last Filed Vital Signs Vital Sign Reading Time Taken Comments Blood Pressure 143/75 10/23/2014 3:38 PM CDT 127 /64 Pulse 60 10/23/2014 3:38 PM CDT 60 Temperature 36.7 C (98 F) 08/01/2014 3:00 PM GASTROENTEROLOGY PHYSICIAN Respiratory Rate 16 08/01/2014 3:00 PM GASTROENTEROLOGY PHYSICIAN Oxygen Saturation 94% 08/15/2014 11:12 AM GASTROENTEROLOGY PHYSICIAN Inhaled Oxygen Concentration - - Weight 75.3 [...] series) 11/15/2026 Medical Devices Implanted Type Area Department Store General Manager Device Identifier Shelf Expiration Date Model / Serial / Lot Plate Lcp Humerus 3hole 241.901 - [id number] Implanted:Qty: 1 on 07/26/2014 by Jeff Frank MD at [facility] Plate [employer]AT[employer] 241.901 / [id number] / [address] 3.5x32mm 204.832 - [id number] Implanted:Qty: 1 on 07/26/2014 by Jeff Frank MD at [facility] Screw [employer] 204.832 / [id number] / Screw [address] Loc Stdrv 3.5x32mm 212.112 - [id number] Implanted:Qty: 1 on 07/26/2014 by Jeff Frank MD at [facility] Screw [employer] 212.112 / [id number] / [address] Loc Stdrv 3.5x42mm 212.118 - [id number] Implanted:Qty: 2 on 07/26/2014 by Jeff Frank MD at [facility] Screw [employer] 212.118 / [id number] / Scre[address] Loc Stdrv 3.5x50mm 212.121 - [id number] Implanted:Qty: 2 on 07/26/2014 by Jeff Frank MD at [facility] Screw [employer] 212.121 / [id number] / Screw [address] Loc Stdrv 3.5x48mm 212.120 - [id number] Implanted:Qty: 1 on 07/26/2014 by Jeff Frank MD at [facility] Screw [employer] 212.120 / [id number] / Screw [address] Loc Stdrv 3.5x55mm 212.123 - [id number] Implanted:Qty: 2 on 07/26/2014 by Jeff Frank MD at [facility] Screw [employer] 212.123 / [id number] / Screw [address] Loc Stdrv 3.5x34mm 212.113 - [id number] Implanted:Qty: 1 on 07/26/2014 by Jeff Frank MD at [facility] Screw [employer] 212.113 / [id number] / Insurance MEDICARE PART A [place] B [place]ID [place] MEDICARE [place] A [place] B [place] Advance Directives For more information, please contact: [phone] * Full Code (Latest Code Status on File) Date Activated Date Inactivated Comments 07/26/2014 1:49 PM 08/01/2014 9:34 PM * Full Code Date Activated Date Inactivated Comments 07/23/2014 5:59 PM 07/24/2014 9:51 PM Care Teams Rubber Off Relationship Specialty Start Date End Date Anitha Miller MD PCP - General Teacher Learning Disabled 07/22/14
--- OUTSIDE RECORDS SUMMARY | 2025-06-12 14:04 | XMS_ITS | Encounter Summary ---
Author Organization [facility] Address [address] [place] [address] Care Team Providers Care Outbound Sales Specialist Name Role Phone Anitha Miller MD Primary Care Provider Unavailab le Encounter Details Date Type Department Care Team (Latest Contact Info) Description 09/17/2003 Outpatient Historical [facility] Cardiac Thoracic Vascular Surg [place] [address] [address] Jeison Johnson II, MD [address] [place] [address] [phone] CORON ATHEROSCL [place] CORON VESSEL (Primary Dx) Social History Tobacco Use Types Packs/Day Years Used Date Smoking Tobacco: Never Assessed Sex and Gender Information Value Date Recorded Sex Assigned at Not on file 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
--- OUTSIDE RECORDS SUMMARY | 2025-06-12 14:04 | XMS_ITS | Encounter Summary ---
Author Organization [facility] Address 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
--- OUTSIDE RECORDS SUMMARY | 2025-06-12 14:04 | XMS_ITS | Encounter Summary ---
Author Organization [facility] Address [address] [facility] Attn: [place] [address] Care Team Providers Care Bus And Sys Integration Senior Manager Name Role Phone Anitha Miller MD Primary Care Provider Unavailab le Encounter Details Date Type Department Care Team (Late st Contact Info) Description 08/12/2003 Inpatient [facility], Jeison Amezquita MD [address] [place] [address] [phone] SUBENDO FIRST EPISODE CARE ([facility]) (Primary Dx) Social History Tobacco Use Types Packs/Day Years Used Date Smoking Tobacco: Never Assessed Sex and Gender Information Value Date Recorded Sex Assigned at Not on file 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
--- OUTSIDE RECORDS SUMMARY | 2025-06-12 14:04 | XMS_ITS ---
Author Organization [facility] Care Team Providers Care Loom Changer Name Role Phone Stan Jackson Unavailable Unavailable Allergies and adverse reactions No Known Allergies Care Team Name Role Address Phone Organization Dates Stan Jackson PCP [address], [address], [place] (Office): [phone] (Cell): [phone] (Fax): [phone] [facility] 05/27/2025 - 06/10/2025 Encounters Encounter Type Code Code System Description Performer Discharge Disposition Service Delivery Location Date Ambulatory Encounter CPT Code = [id number] Acute systolic heart failure Kaia Denton Discharge to other destination [facility] Address: [address], [place], [address], [facility]. 05/27 Ambulatory Encounter CPT Code = [id number] Cellulitis Kaia Denton Discharge to other destination [facility] Address: [address], [place], [address], [facility]. 05/27 Ambulatory Encounter CPT Code = [id number] Arteriosclerosis of coronary artery bypass graft Kaia Denton Discharge to other destination [facility] Address: [address], [place], [address], [facility]. 05/27 Ambulatory Encounter CPT Code = [id number] Acute kidney injury Kaiakehinde Denton Discharge to other destination [facility] Address: [address], [place], [address], [place]. 05/27 Ambulatory Encounter CPT Code = [id number] Generalized ischemic myocardial dysfunction Kaiakehinde Denton Discharge to other destination [facility] Address: [address], [place], [address], [place]. 05/27 Ambulatory Encounter CPT Code = [id number] Peripheral vascular disease Kaiakehinde Denton Discharge to other destination [facility] Address: [address], [place], [address], [place]. 05/27 Ambulatory Encounter CPT Code = [id number] Anxiety disorder Kaiakehinde Denton Discharge to other destination [facility] Address: [address], [place], [address], [place]. 05/27 Ambulatory Encounter CPT Code = [id number] Anemia Kaia Denton Discharge to other destination [facility] Address: [address], [place], [address], [place]. 05/27 Ambulatory Encounter CPT Code = [id number] Essential hypertension Kaia Denton Discharge to other destination [facility] Address: [address], [place], [address], [place]. 05/27 Ambulatory Encounter CPT Code = [id number] Hyperlipidemia Kaia Bertin Discharge to other destination [facility] Address: [address], [place], [address], [place]. 05/27 Ambulatory Encounter CPT Code = [id number] Atherosclerosis of artery of lower limb Kaiakehinde Denton Discharge to other destination [facility] Address: [address], [place], [address], [facility]. 05/27 Ambulatory Encounter CPT Code = [id number] Osteoarthritis Kaia Denton Discharge to other destination [facility] Address: [address], [place], [address], [facility]. 05/27 Goals Section Goals Description Status Target Date Resident Will Pass Soft, For med Stool at a Frequency Perceived as Normal for Residedent Active 09/11/2025 The resident will be contine nt at all times through the review date. Active 09/11/2025 The resident will be free fr om complications of cardiac problems through the review date. Active 09/11/2025 The resident will be free of symptoms of dehydration and maintain moist mucous membranes, good skin turgor. Active 09/11/2025 The resident will express sa tisfaction with type of activities and level of activity involvement when asked through the review date. Active 09/11/2025 The resident will have intac t skin, free of redness, blisters or discoloration by/through review date. Active 09/11/2025 The resident will have no s/ sx of complications relate to fluid overload through the review date. Active 09/11/2025 The resident will improve cu rrent level of function in adl's through next review Active 09/11/2025 The resident will maintain a dequate nutritional status as evidenced by maintaining stable weight, labs wnl Active 09/11 The resident will maintain c urrent level of communication function, able to understand others, through next review Active 09/11/2025 The resident will not sustai n serious injury through the review date. Active 09/11/2025 The resident will remain pat e of complications related to altered hematological status through the review date. Active 09/12/19 The resident will verbalize adequate relief of pain or ability to cope with incompletely relieved pain through the review date. Active 09/11/2025 Will be free from oral/dental problems, Active 09/11/2025 Functional Status Code Name Recorded Time Value Entered By Ambulation 06/10/2025 Independent twagner Ambulation 06/10/2025 Independent twagner Ambulation 06/10/2025 Not assessed twagner Ambulation 06/10/2025 Not assessed twagner Bathing 06/06/2025 Not assessed - Dressing 06/10/2025 Limited Assistance twagner Feeding or Eating 06/10/2025 Independent kcruse Toileting 06/10/2025 Limited Assistance twagner Transferring 06/10/2025 Supervision twphyllis Immunizations Immunization Status Vaccine Details Vaccine Code CodeSystem Date Notes Influenza completed Influenza, high-dose, split virus, quadrivalent, injectable, preservative free lotNumber: [id number] expiry: 12/24/2025 Mfg: [employer] Given 0.5 ml intramuscularly 197 CVX created date: 05/30/2025 consent date: 05/30/2025 administer ed date: 05/30/2025 Educated by Ximena Reeves RN on 05/30/2025 Medications Section Medication Name Status Code CodeSystem Dose Route Frequency Admin Type Sig Text Start Date End Date Indication OxyCODONE HCl Tablet 10 MG aborted 73078 83 RXNORM 1 table t Oral as needed PRN Give 1 table t by mouth every 6 hours as neede d for Pain 05/28 Pain oxyCODONE HCl Oral Tablet 10 MG active 77100 83 RXNORM 1 table t Oral as needed PRN Give 1 table t by mouth every 6 hours as neede d for Pain 2024 - Pain Ferrous Sulfate Tablet 325 (65 Fe) MG aborted 29553 5 RXNORM 0.5 table t Oral one time a day Routin e Give 0.5 table t by mouth one time a day for cardi ogeni c shock 05/30 cardiogenic shock Midodrine HCl Oral Tablet 5 MG aborted 04276 0 RXNORM 1 table t Oral every 6 hours Routin e Give 1 table t by mouth every 6 hours for CAD 05/28 CAD Cholecalcif thomas Tablet 1000 UNIT active 89726 2 RXNORM 1 table t Oral one time a day Routin e Give 1 table t by mouth one time a day for dieta ry suppl ement 2024 - dietary supplement Clopidogrel Bisulfate Oral Tablet 75 MG active 03279 2 RXNORM 1 table t Oral one time a day Routin e Give 1 table t by mouth one time a day for CAD 2024 - CAD Atorvastati n Calcium Oral Tablet 80 MG active 04197 5 RXNORM 1 table t Oral every evening shift Routin e Give 1 table t by mouth every eveni ng shift for CAD 2024 - CAD Potassium Chloride ER Tablet Extended Release 10 MEQ active 80343 3 RXNORM 1 table t Oral one time a day Routin e Give 1 table t by mouth one time a day for CHF 2024 - CHF Leflunomide Oral Tablet 20 MG active 99708 5 RXNORM 1 table t Oral one time a day Routin e Give 1 table t by mouth one time a day for polya rthra mike 2024 - polyarthrag ia Pantoprazol e Sodium Oral Tablet Delayed Release 40 MG active 32044 0 RXNORM 1 table t Oral one time a day Routin e Give 1 table t by mouth one time a day for indig estio n 2024 - indigestion predniSONE Oral Tablet 5 MG active 35896 7 RXNORM 1 table t Oral one time a day Routin e Give 1 table t by mouth one time a day for joint pain 2024 - joint pain Tuberculin PPD Solution 5 UNIT/0[place] [address] 2 RXNORM 0.1 ml Intrad ermal one time a day Routin e Injec t 0.1 ml intra derma lly one time a day for TB (Tube rculo sis) Scree hugo until 05/28 00:00 AND Injec t 0.1 ml intra derma lly one time a day for TB (Tube rculo sis) Scree hugo until 06/04 00:00 05/28 TB (Tuberculos is) Screening 29335 2 RXNORM 0.1 ml Intrad ermal one time a day Routin e Injec t 0.1 ml intra derma lly one time a day for TB (Tube rculo sis) Scree hugo until 05/28 00:00 AND Injec t 0.1 ml intra derma lly one time a day for TB (Tube rculo sis) Scree hugo until 06/04 00:00 06/04 TB (Tuberculos is) Screening Pregabalin Oral Capsule 150 MG active 61823 0 RXNORM 1 capsu le Oral two times a day Routin e Give 1 capsu le by mouth two times a day for nerve pain 2024 - nerve pain Cilostazol Oral Tablet 100 MG active 87319 1 RXNORM 1 table t Oral two times a day Routin e Give 1 table t by mouth two times a day for inter mitte nt donna icati on 2024 - intermitten t claudicatio n Lasix Oral Tablet 40 MG active 9 RXNORM 1 table t Oral one time a day Routin e Give 1 table t by mouth one time a day for CHF 2024 - CHF Aspirin Tablet 81 MG active 23448 0 RXNORM 1 table t Oral one time a day Routin e Give 1 table t by mouth one time a day for Conge stive heart failu re 2024 - Congestive heart failure Baclofen Oral Tablet 10 MG active 1 RXNORM 1 table t Oral as needed PRN Give 1 table t by mouth every 12 hours as neede d for muscl e spasm s 2024 - muscle spasms Docusate Sodium Capsule 100 MG active 07225 05 RXNORM 1 capsu le Oral two times a day Routin e Give 1 capsu le by mouth two times a day for const ipati on 2024 - constipatio n Midodrine HCl Oral Tablet 5 MG aborted 68305 0 RXNORM 2 table t Oral every 6 hours Routin e Give 2 table t by mouth every 6 hours for CAD 2 tabs to equal 10 mg 06/10 CAD Bisacodyl Laxative Suppository 10 MG active 9 RXNORM 1 suppo sitor y Rectal as needed PRN Inser t 1 suppo sitor y recta lly as neede d for Bowel Manag ement daily 2024 - Bowel Management Milk of Magnesia Oral Suspension 400 MG/5ML active 30 ml Oral as needed PRN Give 30 ml by mouth as neede d for const ipati on once daily 2024 - constipatio n Fleet Enema Rectal Enema active 118 ml Rectal as needed PRN Inser t 118 ml recta lly as neede d for const ipati on 2024 - constipatio n Hydrocodone -Acetaminop hen Tablet 10-325 MG active 35707 9 RXNORM 1 table t Oral as needed PRN Give 1 table t by mouth every 6 hours as neede d for Pain May use this until Oxyco done comes in then D/C 2024 - Pain Zofran Oral Tablet 4 MG active 1 table t Oral as needed PRN Give 1 table t by mouth every 4 hours as neede d for Nause a;Leonard sea and Vomit ing 2024 - Nausea;Naus ea and Vomiting Midodrine HCl Oral Tablet 5 MG active 37926 0 RXNORM 1 table t Oral three times a day Routin e Give 1 table t by mouth three times a day for CAD 2024 - CAD Midodrine HCl Oral Tablet 5 MG aborted 07833 0 RXNORM 1 table t Oral every 6 hours Routin e Give 1 table t by mouth every 6 hours for CAD 06/10 CAD Mental Status Section Date Assessment Total Score Description 05/31/2025 BIMS 15 cognitively int act CAM 0 No delirium ind icated PHQ-9 00 05/31/2025 BIMS 15 cognitively int act CAM 0 No delirium ind icated PHQ-9 00 Insurance Providers Coverage Status Coverage Type Relationship to Subscriber Member Identifier Subscriber Identifier Group Identifier Payer Identifier and Other information 2025 Code: 51 Code System OID:[id number]. 5 Code System Name: Source of Payment Typology (PHDSC) Display: Managed Care (Private) Translation: Code: Code System: OID:[id number] .[id number]. 1336 Code System Name: Insurance Type Code ([id number]) Display Name: Health Maintenance Organization (HMO) Plan Code: SELF Code System Name: HL7 RoleCode Code System OID:[id number] .[id number] Display Name: Self [id number] Root: [id number] Payer Name: /BS [facility] Address: [facility] [id number] City: [place] State: [place] Country: [facility] Telecom: 2025 Code: 2 Code System OID:[id number] .[id number]. 5 Code System Name: Source of Payment Typology (PHDTX) Display: Medicaid Translation: Code: 48 Code System: OID:[id number] .[id number]. 1336 Code System Name: Insurance Type Code ([id number]) Display Name: Medicaid Code: SELF Code System Name: HL7 RoleCode Code System OID:[id number] .[id number] Display Name: Self [id number] Root: [id number] Payer Name: [place] Medicaid Address: [place] [address] City: [place] State: [place] Country: [facility] Telecom: Plan of Treatment Section Interventions Intervention Code Code System Display Name Proposed D ate Problems Problem # Description Date of onset Resolved Date Code CodeSystem Concern Status 1 ACUTE KIDNEY FAILURE, UNSPECIFIED 05/27/[address] active 2 ACUTE SYSTOLIC (CONGESTIVE) HEART FAILURE 05/27/[address] active 3 ANEMIA, UNSPECIFIED 05/27/[address] active 4 ANXIETY DISORDER, UNSPECIFIED 05/27/[address] active 5 ATHEROSCLEROSIS OF CORONARY ARTERY BYPASS GRAFT(S) WITHOUT ANGINA PECTORIS 05/27/[address] active 6 ATHEROSCLEROSIS OF RAMAH NAVAJO CHAPTER ARTERIES OF EXTREMITIES WITH INTERMITTENT CLAUDICATION, UNSPECIFIED EXTREMITY 05/27/[address] active 7 CELLULITIS, UNSPECIFIED 05/27/[address] active 8 ESSENTIAL (PRIMARY) HYPERTENSION 05/27/[address] active 9 HYPERLIPIDEMIA, UNSPECIFIED 05/27/[address] active 10 ISCHEMIC CARDIOMYOPATHY 05/27/[address] active 11 PERIPHERAL VASCULAR DISEASE, UNSPECIFIED 05/27/[address] active 12 UNSPECIFIED OSTEOARTHRITIS, UNSPECIFIED SITE 05/27/[address] active Reason for Referral No Reasons for Referral Entered Social History Social History Observation Description Start Date End Date Code Code System Current Smoking Status Tobacco smoking consumption unknown 435153712 SNOMED CT Sex Assigned At Male 1950 58820-6 LOINC Sex Male 017049475 SNOMED CT Gender Identity Sexual Orientation Vital Signs Code Code System Vitals Name Values and Units Timing Information 98530-1 [facility] Pain Level Value=10.0 06/10/2025 9279-1 [facility] Respiratory Rate Value=16.0 Units=/m in 06/10/2025 8462-4 [facility] Blood Pressure-Diastolic Value=70 Un its=mmHg 06/10/2025 8480-6 [facility] Blood Pressure-Systolic Nagcz=327 Un its=mmHg 06/10/2025 8310-5 [facility] Body Temperature Value=98.6 Units= F 06/10/2025 8867-4 [facility] Heart rate Value=73.0 Units=/min 59866-0 [facility] O2 % BldC Oximetry Value=93.0 Units= % 06/10/2025 63082-9 [facility] Weight Jilti=393.0 Units=Lbs 8302-2 LO[facility] Height Value=66.5 Units=Inches 05/28/2025
--- OUTSIDE RECORDS SUMMARY | 2025-06-12 14:04 | XMS_ITS | Encounter Summary ---
Author Organization [facility] Address [address] [place] [address] Care Team Providers Care Research Group Director Name Role Phone Anitha Miller MD Primary Care Provider Unavailab le Encounter Details Date Type Department Care Team (Late st Contact Info) Description 01/01/2004 Emergency [facility] Emergency Department [address] 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
--- OUTSIDE RECORDS SUMMARY | 2025-06-12 14:04 | XMS_ITS | Clinical Summary ---
Author Organization [facility] Address [address] [facility] Attn: [place] [address] Care Team Providers Care Dressmaker Helper Name Role Phone Anitha Miller MD Primary [...] Encounters Date Type Department Care Team Description 06/11/2025 External Device Data [facility] ABSTRACTION Provider, Abstract 05/07/2025 External Device Data [facility] ABSTRACTION Provider, Abstract 04/02/2025 External Device Data [facility] ABSTRACTION Provider, Abstract 03/27/2025 Telephone [facility] [address] [place] [address] Gael Allen MD Documentation Only 03/15/2025 Abstract [facility] [place] [address] [place] [address] Gael Allen MD from Last 3 Months Family History Medical [...] on file 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 Gender Identity Not on file Sexual Orientation Not on file Last Filed Vital Signs Vital Sign Reading Time Taken Comments Blood Pressure 143/75 10/23/2014 3:38 PM CDT 127 /64 Pulse 60 10/23/2014 3:38 PM CDT 60 Temperature 36.7 C (98 F) 08/01/2014 3:00 PM PROMOTIONAL DEMONSTRATOR Respiratory Rate 16 08/01/2014 3:00 PM PROMOTIONAL DEMONSTRATOR Oxygen Saturation - - Inhaled Oxygen Concentration [...] 5 years 11/15/1996 INFLUENZA VACCINE (#1) 2025 4, 03/31/2022, 04/15/2021, Additional history exists RSV VACCINE (60+ or ) (1 - 1-dose 75+ series) 11/15/2026 DTAP/TDAP/TD VACCINES (5 - T d or Tdap) 02/26/2035 02/26/2025, 02/14/2017, 06/27/2014, Additional history exists ZOSTER VACCINE Completed 03/25/2023, 03/28, 01/08/2021 PNEUMOCOCCAL VACCINE 50+ YEARS Completed 0 02/26/2025, 02/24/2023, 04/07/2018, Additional history exists Medical Devices Implanted Type Area Embedded Case Manager Device Identifier Shelf Expiration Date Model / Serial / Lot Plate Lcp Humerus 3hole 241.901 - [id number] Implanted:Qty: 1 on 07/26/2014 by Jeff Frank MD Plate [employer] 241.901 / [id number] / [address] 3.5x32mm 204.832 - [id number] Implanted:Qty: 1 on 07/26/2014 by Jeff Frank MD Screw [employer] 204.832 / [id number] / [address] Loc Stdrv 3.5x32mm 212.112 - [id number] Implanted:Qty: 1 on 07/26/2014 by Jeff Frank MD Screw [employer] 212.112 / [id number] / [address] Loc Stdrv 3.5x34mm 212.113 - [id number] Implanted:Qty: 1 on 07/26/2014 by Jeff Frank MD Screw [employer] 212.113 / [id number] / [address] Loc Stdrv 3.5x42mm 212.118 - [id number] Implanted:Qty: 2 on 07/26/2014 by Jeff Frank MD Screw [employer] 212.118 / [id number] / Scre[address] Loc Stdrv 3.5x48mm 212.120 - [id number] Implanted:Qty: 1 on 07/26/2014 by Jeff Frank MD Screw [employer] 212.120 / [id number] / Scre[address] Loc Stdrv 3.5x50mm 212.121 - [id number] Implanted:Qty: 2 on 07/26/2014 by Jeff Frank MD Screw [employer] 212.121 / [id number] / Screw [address] Loc Stdrv 3.5x55mm 212.123 - [id number] Implanted:Qty: 2 on 07/26/2014 by Jeff Frank MD Screw [employer] 212.123 / [id number] / Insurance [facility] [id number] [facility] [employer] [facility] [employer] Care Teams Dressmaker Helper Relationship Specialty Start Date End Date Anitha Miller MD NO ADDRESS ON FILE PCP - General Silvering Applicator 07/22/14 [address] Sahu [address] [place] [address] Referring Physician 04/19/24
--- OUTSIDE RECORDS SUMMARY | 2025-06-12 14:05 | XMS_ITS | Encounter Summary ---
Author Organization [facility] Address [address] [place] [address] Care Team Providers Care Adhesive Primer Name Role Phone Anitha Miller MD Primary Care Provider Unavailab le Encounter Details Date Type Department Care Team (Late st Contact Info) Description 12/16/2014 Ancillary Orders [facility] Orthopedics - Orthopedic [facility] [address] [place] [address] Jaime Qiu MD [address] [place] [address] Pain (Primary Dx) Social History Tobacco Use Types Packs/Day Years Used Date Smoking Tobacco: Former Cigarettes 0 Q uit: 08/14/2007 Smokeless Tobacco: Never Alcohol Use Standard Drinks/Week Comments Yes 0 (1 standard drink = 0.6 oz pur e alcohol) Sex and Gender Information Value Date Recorded Sex Assigned at Not on file 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
[2025-06-12 14:07] LABS: Respiratory Syncytial Virus Ce NEGATIVE (Negative)
[2025-06-12 14:12] LABS: Alanine Aminotransferase 10 U/L (0-41); Albumin Level 4.1 g/dL (3.5-5.2); Alkaline Phosphatase 94 U/L (40-130); Aspartate Amino Transferase 15 U/L (0-40); Blood Urea Nitrogen 43 mg/dL (8-23); Calcium 9.6 mg/dL (8.5-10.5); Carbon Dioxide 24 mmol/L (22-29); Chloride 99 mmol/L (98-107); Globulin 2.0 g/dL (1.3-4.6); Glucose 101 mg/dL (65-115); Osmolality Calculated 299 mOsm/kg (285-295); Sodium 139 mmol/L (136-145); Total Protein 6.1 g/dL (6.6-8.7)
[2025-06-12 14:15] LABS: SARS-CoV-2 PCR Positive (Negative)
[2025-06-12 14:16] LABS: Anion Gap 21.3 (5-19); Potassium 5.3 mmol/L (3.5-5.1)
[2025-06-12 14:41] LABS: Glucose Urine UA Negative (Normal); Nitrate Urine Negative (Negative); Specific Gravity, Urine 1.011 (1.005-1.030)
[2025-06-12 14:46] LABS: Universal Test for UA Present (0)
--- NOTE | 2025-06-12 14:47 | ECG_ITS ---
[facility] Date: 2025-06-12 Pat Name: Gael Nevarez Department: Room: Gender: Male Commercial Internship: : 1950 Requested By: Gwen Barnett Order Number: [id number] [place] MD: Rhiannon Denton M.D. Measurements Intervals [place] Rate: 93 P: 53 TX: 152 QRS: 77 QRSD: 110 T: 106 QT: 350 QTc: 436 Interpretive Statements SINUS RHYTHM WITH OCCASIONAL VENTRICULAR PREMATURE COMPLEXES Compared to ECG 06/12/2025 13:41:56 Ventricular premature complex(es) now present Electronically Signed On 06-12-2025 21:42:40 INSPECTOR QUALITY ASSURANCE by Rhiannon Denton M.D. [email or web address]
[2025-06-12 14:56] LABS: UA Slide Review UA Slide Review Perf
[2025-06-12 15:17] LABS: Reflex Lactate Order REFLEX LACTIC ORDERD
[2025-06-12] MEDS: linezolid premix 600 MG/300 ML PREMIX 300 MG IV (15:33)
[2025-06-12] MEDS: methylPREDNISolone sod succ 125 mg/2 mL INJ IVP (15:42)
[2025-06-12 16:01] LABS: Lactic Acid level (Lactate) 3.8 mmol/L (0.5-2.2)
[2025-06-12] MEDS: acetaminophen 1,000 MG/100 ML PIGGYBACK 400 MG IV (16:59)
[2025-06-12 19:00] LABS: Troponin 5 6HR 54.67 ng/L (0-15)
--- NOTE | 2025-06-12 19:00 | PM.HP ---
Documented by User: Courtney Reid NP 06/12/25 20:37 Providers/Chief Complaint Admitting Physician: Haider Singh Primary Care Provider: Mary Sahu MD Chief Complaint: Fever, Poss Sepsis History of Present Illness Gael Nevarez is a 74 year old male ischemic cardiomyopathy, systolic CHF, history of CABG, CAD, HTN, HLD, PAD, anemia and anxiety presents ED today w/ c/o increased weakness and SOB newly requiring 3L NC. Associated signs and symptoms of mild confusion, intermittent sharp lower abdominal pain, fevers. Patient denies headache, chest pain, palpitations, chest pain, changes in urinary and bowel habits, recent medication changes. Patient was in a rehab until 06/11/2025 then he was discharged due to insurance issues. Patient very weak during my evaluation and no family noted to be at bedside. Patient to be admitted as inpatient to hospitalist services for further medical management and care. Of notes patient was recently hospitalized from 05/16-05/27/25 for treatment of cellulitis, CHF, TREVON. While in ED he CBC, CMP, troponin series, BNP, CRP, lactic acid, procalcitonin, UA was collected, reviewed, and results as follows: WBC 16.26, Neut 14.36 RBC 3.67, Hgb 10.9, HCT 34.9, MPV 10.7. Na 139, K 5.3, osmo 299. Range Master 2.5, BUN 43, alk phos 94. Baseline troponin 56, 2-hour troponin 52.08, delta troponin T -3.92, 6-hour troponin 54.67. BNP 1060. CRP 36.7, lactic acid 3.8, procalcitonin 0.43. UA positive for UTI. Flu/RSV/COVID swab obtained, positive for COVID. Blood cultures obtained, pending. While in ED patient received following medications: 1.5L NC bolus , Solu-Medrol 125 mg IVP, acetaminophen 1000 mg IV, meropenem 500 mg IVP, Zyvox 600 mg IV. Review of Systems General: Reports: 10 or more systems reviewed and unremarkable except in HPI and below Medications/Allergies Home Medications ?Medication ?Instructions ?Recorded ?Confirmed ?Last Taken ?Type atorvastatin 80 mg tablet 80 mg PO QPM 07/23/23 05/16/25 05/14/25 History cholecalciferol (vitamin D3) 25 25 mcg PO DAILY 07/23/23 05/16/25 05/15/25 History mcg (1,000 unit) tablet cilostazol 100 mg tablet 100 mg PO BID 07/23/23 05/16/25 05/15/25 History clopidogrel 75 mg tablet 75 mg PO DAILY 07/23/23 05/16/25 05/15/25 History ferrous sulfate 325 mg (65 mg 162.5 mg PO QAM 07/23/23 05/16/25 05/15/25 History iron) tablet pantoprazole 40 mg tablet,delayed 40 mg PO QAM 07/23/23 05/16/25 05/15/25 History release hinged knee brace #1 ea 04/23/24 05/16/25 Unknown Rx baclofen 10 mg tablet 10 mg PO BID PRN Muscle Spasm 01/08/25 05/16/25 03/06/25 06:30 History leflunomide 20 mg tablet 20 mg PO DAILY #90 tabs 03/26/25 05/16/25 05/15/25 Rx prednisone 5 mg tablet 5 mg PO DAILY joint pain #90 tabs 03/26/25 05/16/25 05/08/25 Rx pregabalin 150 mg capsule 150 mg PO BID #180 caps 03/26/25 05/16/25 05/15/25 Rx docusate sodium 100 mg capsule 100 mg PO BID 05/08/25 05/16/25 05/15/25 History (Colace) furosemide 40 mg tablet (Lasix) 40 mg PO DAILY #30 tabs 05/08/25 05/16/25 05/15/25 Rx sennosides 8.6 mg tablet (senna) 8.6 mg PO DAILY PRN Constipation 05/08/25 05/16/25 Unknown History aspirin 81 mg tablet,delayed 81 mg PO DAILY #90 tabs 05/27/25 Unknown Rx release midodrine 5 mg tablet 10 mg (2 x 5 mg) PO Q6H #90 tabs 05/27/25 Unknown Rx potassium chloride 10 mEq 10 meq PO DAILY #30 caps 05/27/25 Unknown Rx capsule,extended release Allergies Allergy/AdvReac Type Severity Reaction Status Date / Time No Known Allergies Allergy Verified 05/15/25 15:39 PFSH Acute PFSH: Medical History Immunization counseling High risk medication use Polyarthralgia Anxiety Acute anxiety Anemia CAD (coronary artery disease) History of hypertension Hyperlipidemia Abdominal hernia Claudication PAD (peripheral artery disease) Stenosis of artery of left lower extremity Fall at home Recurrent right knee instability Osteoarthritis of right knee Surgical History H/O gastric bypass x4 History of eye surgery History of neck surgery x2 History of shoulder surgery left History of cholecystectomy Previous back surgery x5 S/P hernia surgery Family History Other Anemia Cancer Hypertension Denies family history of Lupus (systemic lupus erythematosus) Rheumatoid arthritis Diabetes CAD (coronary artery disease) Migraines Chronic kidney disease (CKD) Stroke Social History Smoking and tobacco/nicotine status: former use of tobacco/nicotine Vitals/I&O/Wt Last Vital Signs Temp 98.0 F 06/12/25 13:13 Pulse 76 06/12/25 17:33 Resp 14 06/12/25 13:13 BP 140/57 06/12/25 17:33 Pulse Ox 94 06/12/25 17:33 O2 Del Method Nasal Cannula 06/12/25 17:30 O2 Flow Rate 3 06/12/25 13:13 06/12/25 06/12/25 06/12/25 06:59 14:59 22:59 Intake Total 1900 / 1900 Balance 1900 / 1900 Weight last 48 hrs Weight 74 kg Weight 77.111 kg Physical Exam Narrative: General: Patient very drowsy, slow to answer questions. On 2 L nasal cannula HEENT: Normo-cephalic, atraumatic, grossly unremarkable exam Cardio: NSR, normal S1-S2 without any murmurs, rubs, or gallops and JVD normal Respiratory: Diminished to bilateral upper and lower lobes breathing on auscultation GI: Abd soft, non-tender, non-distended, normo-active bowel sounds present Neuro: Moves all extremities, no sensory deficits, Normal speech Behavior: Appropriate and cooperative Extremities: Weak. adequate palpable pulses. No clubbing, cyanosis or edema. Data 06/12/25 12:40 06/12/25 12:40 Other Labs: 06/12: EKG 1447: NSR, no ST changes, QRS 110, QTc 436, HR 93 06/12: EKG 1323: NSR, no ST changes, QRS 98, QTc 418, HR 82 06/12: CXR: Reviewed and results as follows: Atherosclerosis. Micro: Microbiology 06/12/25 13:43 Blood Culture - Preliminary Blood SPECIMEN COLLECTED 06/12/25 13:40 Blood Culture - Preliminary Blood SPECIMEN COLLECTED A&P Assessment and plan 1. COVID-19: 2. Acute kidney injury: 3. Hypoxemia: 4. Urinary tract infection: 5. Systolic CHF: 6. CAD (coronary artery disease): 7. Neuropathy of lower extremity: 8. PAD (peripheral artery disease): Plan: COVID+ Hypoxia AMS, Likely secondary to hypoxia - 06/12: EKG 1447: NSR, no ST changes, QRS 110, QTc 436, HR 93 - 06/12: EKG 1323: NSR, no ST changes, QRS 98, QTc 418, HR 82 - 06/12: CXR: Reviewed and results as follows: Atherosclerosis. - Newly requiring 3L NC, titrate oxygen as indicated - Isolation precautions - Tessalon Perles as needed for cough - IVP Decadron 6 mg daily - Remdesivir 200mg IV bolus, continue maintenance doses of 100mg x 5days - Continuous pulse oximetry, cardiac monitoring - Fall precautions, neurochecks UTI - UA positive for UTI - Urine cultures obtained, pending. - IV abx Rocephin 1000 mg dly - Renal US ordered, pending. TREVON - Range Master 2.5, BUN 43, alk phos 94 - Received 1.5L bolus in ED - Keep MAP >65 - Monitor K and Phos closely. Tx as indicated. - Strict I&O's - Avoid nephrotoxins - CMP dly Ischemic cardiomyopathy Systolic CHF - Consider IV diuresis. - Reassess renal function, electrolytes with risk of deficiency with IV diuretic. - Strict I's and O's, daily weights - Cardiac diet CAD HLD Hx of CABG - Lipid panel ordered, pending. - Continue home atorvastatin 80 mg PO dly -05/15/2025: There is total occlusion coronary artery disease with three vessel disease. Four coronary grafts visualized: three grafts patent, and one graft occluded. The apex, mid posterior, mid septum, anterolateral, mid inferior moore are hypokinetic. All other visualized moore normal. Mild left ventricular systolic dysfunction. Ejection fraction of 45%. - Serial EKGs, serial troponins, tolerated monitoring - Continue home medications of aspirin, Plavix, statin Hypotension - Continue home midodrine 10mg PO dly Seronegative rheumatoid arthritis -Resume home medication prednisone 5 mg p.o. daily after IVP Decadron completed CODE STATUS: Full code GI prophylaxis: Protonix 40 mg p.o. dly VTE prophylaxis: Heparin 5000u SC q12hr PDMP PDMP Reviewed: Not Reviewed Attestations Medical Necessity Statement*: Admitted under inpatient status.Given complexity of patient's presentation, co-morbid conditions, and required intensity of treatment, a hospitalization exceeding two midnights is anticipated. and High Time for a total of 77 minutes, includes reviewing past or interval history, examining/interviewing patient, placing orders, counseling patient/family/other support, updating patient/family/other support, discussing plan of care with staff, communicating with other healthcare providers, documenting encounter and coordinating care Diagnoses COVID-19 U07.1 Acute kidney injury N17.9 Hypoxemia R09.02 Urinary tract infection N39.0 Systolic CHF I50.20 CAD (coronary artery disease) I25.10 Neuropathy of lower extremity G57.90 PAD (peripheral artery disease) I73.9 Documented by User: Haider Singh MD 06/12/25 20:15 Providers/Chief Complaint Chief Complaint: Fever, Poss Sepsis Medications/Allergies Home Medications ?Medication ?Instructions ?Recorded ?Confirmed ?Last Taken ?Type atorvastatin 80 mg tablet 80 mg PO QPM 07/23/23 05/16/25 05/14/25 History cholecalciferol (vitamin D3) 25 25 mcg PO DAILY 07/23/23 05/16/25 05/15/25 History mcg (1,000 unit) tablet cilostazol 100 mg tablet 100 mg PO BID 07/23/23 05/16/25 05/15/25 History clopidogrel 75 mg tablet 75 mg PO DAILY 07/23/23 05/16/25 05/15/25 History ferrous sulfate 325 mg (65 mg 162.5 mg PO QAM 07/23/23 05/16/25 05/15/25 History iron) tablet pantoprazole 40 mg tablet,delayed 40 mg PO QAM 07/23/23 05/16/25 05/15/25 History release hinged knee brace #1 ea 04/23/24 05/16/25 Unknown Rx baclofen 10 mg tablet 10 mg PO BID PRN Muscle Spasm 01/08/25 05/16/25 03/06/25 06:30 History leflunomide 20 mg tablet 20 mg PO DAILY #90 tabs 03/26/25 05/16/25 05/15/25 Rx prednisone 5 mg tablet 5 mg PO DAILY joint pain #90 tabs 03/26/25 05/16/25 05/08/25 Rx pregabalin 150 mg capsule 150 mg PO BID #180 caps 03/26/25 05/16/25 05/15/25 Rx docusate sodium 100 mg capsule 100 mg PO BID 05/08/25 05/16/25 05/15/25 History (Colace) furosemide 40 mg tablet (Lasix) 40 mg PO DAILY #30 tabs 05/08/25 05/16/25 05/15/25 Rx sennosides 8.6 mg tablet (senna) 8.6 mg PO DAILY PRN Constipation 05/08/25 05/16/25 Unknown History aspirin 81 mg tablet,delayed 81 mg PO DAILY #90 tabs 05/27/25 Unknown Rx release midodrine 5 mg tablet 10 mg (2 x 5 mg) PO Q6H #90 tabs 05/27/25 Unknown Rx potassium chloride 10 mEq 10 meq PO DAILY #30 caps 05/27/25 Unknown Rx capsule,extended release Allergies Allergy/AdvReac Type Severity Reaction Status Date / Time No Known Allergies Allergy Verified 05/15/25 15:39 PFSH Acute PFSH: Medical History Immunization counseling High risk medication use Polyarthralgia Anxiety Acute anxiety Anemia CAD (coronary artery disease) History of hypertension Hyperlipidemia Abdominal hernia Claudication PAD (peripheral artery disease) Stenosis of artery of left lower extremity Fall at home Recurrent right knee instability Osteoarthritis of right knee Surgical History H/O gastric bypass x4 History of eye surgery History of neck surgery x2 History of shoulder surgery left History of cholecystectomy Previous back surgery x5 S/P hernia surgery Family History Other Anemia Cancer Hypertension Denies family history of Lupus (systemic lupus erythematosus) Rheumatoid arthritis Diabetes CAD (coronary artery disease) Migraines Chronic kidney disease (CKD) Stroke Social History Smoking and tobacco/nicotine status: former use of tobacco/nicotine Data 06/12/25 12:40 06/12/25 12:40 A&P Assessment and plan 1. COVID-19: 2. Acute kidney injury: 3. Hypoxemia: 4. Urinary tract infection: 5. Systolic CHF: 6. CAD (coronary artery disease): 7. Neuropathy of lower extremity: 8. PAD (peripheral artery disease): PDMP PDMP Reviewed: Not Reviewed Attestations Other Attestations: Patient case discussed with ED provider and reviewed and discussed with WILMAR including E&M. Coding Level of Care Code 23985 Diagnoses COVID-19 U07.1 Acute kidney injury N17.9 Hypoxemia R09.02 Urinary tract infection N39.0 Systolic CHF I50.20 CAD (coronary artery disease) I25.10 Neuropathy of lower extremity G57.90 PAD (peripheral artery disease) I73.9
[2025-06-12 19:05] LABS: Troponin 5 6HR Delta -1.33 ng/L (0-12)
--- NOTE | 2025-06-12 19:32 | US_ITS ---
WS: [id number] RENAL ULTRASOUND URINARY BLADDER ULTRASOUND HISTORY: UTI, abd pain, COMPARISON: None available. TECHNIQUE: 2-D and color Doppler imaging of the kidney submitted. Right kidney: 10.6 cm x 4.6 cm x 5.0 cm. Normal echogenicity with no hydronephrosis or mass. Left kidney: 10.9 cm x 5.2 cm x 6.0 cm. Normal echogenicity with no hydronephrosis or mass. Aorta: Normal. Urinary Bladder: Normal distention. Bilateral ureteral jets are identified. Prevoid volume: 298 mL. Post void volume: Not obtainable due to patient's clinical status. US/US renal BI w/PV bladder [id number] IMPRESSION: 1. No hydronephrosis or renal obstruction. 2. Normal size kidneys. 3. Normally distended urinary bladder.
--- NOTE | 2025-06-12 20:07 | ECG_ITS ---
[facility] Test Date: 2025-06-12 Pat Name: Gael Nevarez Department: Room: 104 Gender: Male Forepart Reducer: : 1950 Requested By: Gwen Barnett Order Number: [id number] Wing MD: Rhiannon Denton M.D. Measurements Intervals [place] Rate: 87 P: 59 DC: 169 QRS: 45 QRSD: 99 T: 83 QT: 367 QTc: 444 Interpretive Statements SINUS RHYTHM Compared to ECG 06/12/2025 14:47:13 Ventricular premature complex(es) no longer present Electronically Signed On 06-12-2025 21:40:37 RAIL DOWELING MACHINE OPERATOR by Rhiannon Denton M.D. [email or web address]
[2025-06-12 20:24] LABS: Cholesterol 128 mg/dL (0-200); HDL Cholesterol 44 mg/dL (60-100); Triglycerides 106 mg/dL (0-150)
[2025-06-12] MEDS: heparin 5,000 unit/mL INJ 1 mL 5000 UNIT SUBCUT (20:44)
[2025-06-12] MEDS: remdesivir 200 MG in sodium chloride 0.9% (100 ml) 60 ML 100 MG IV (20:45)
[2025-06-13] VITALS (9 sets, daily range): BP systolic 94–150; BP diastolic 49–71; PULSE 68–86; RESP 9–31; TEMP 36.6–37; O2SAT 94–98; BMI 25.5
--- NOTE | 2025-06-13 03:16 | ECG_ITS ---
[facility] Test Date: 2025-06-13 Pat Name: Gael Nevarez Department: Room: 104 Gender: Male Oncology Rn: : 1950 Requested By: Raleigh Barnett Order Number: [id number] Reading MD: SAMI LONDON Measurements Intervals [place] Rate: 77 P: 60 [place]: 176 QRS: 59 QRSD: 102 T: 83 QT: 399 QTc: 453 Interpretive Statements SINUS RHYTHM WITH FREQUENT VENTRICULAR PREMATURE COMPLEXES ABNORMAL RHYTHM ECG Compared to ECG 06/12/2025 20:07:10 Ventricular premature complex(es) now present Electronically Signed On 06-19-2025 20:32:01 PLATE MOLDER by SAMI LONDON [email or web address]
[2025-06-13 04:30] LABS: Hematocrit 32.1 % (37-53); Hemoglobin 10.00 g/dL (11.27-16.99); Mean Corpuscular HGB Conc 31.2 g/dL (30-55); Mean Corpuscular Hemoglobin 29.7 pg (27-33); Mean Corpuscular Volume 95.3 fl (82-101); Nucleated Red Blood Cells % 0 %; Platelet Count 161 10^3/cmm (157-399); Red Blood Count 3.37 10^6/uL (3.85-5.65); White Blood Count 14.90 10^3/uL (3.29-11.43)
[2025-06-13 04:54] LABS: Troponin T (5th) Once 48 ng/L (0-15)
[2025-06-13 04:55] LABS: Alanine Aminotransferase 9 U/L (0-41); Albumin Level 3.3 g/dL (3.5-5.2); Alkaline Phosphatase 74 U/L (40-130); Aspartate Amino Transferase 14 U/L (0-40); Blood Urea Nitrogen 37 mg/dL (8-23); Calcium 8.7 mg/dL (8.5-10.5); Carbon Dioxide 24 mmol/L (22-29); Chloride 106 mmol/L (98-107); Globulin 1.7 g/dL (1.3-4.6); Glucose 119 mg/dL (65-115); Magnesium 2.1 mg/dL (1.7-2.3); Osmolality Calculated 304 mOsm/kg (285-295); Sodium 142 mmol/L (136-145); Total Protein 5.0 g/dL (6.6-8.7)
[2025-06-13 04:56] LABS: Lactate (Lactic Acid level) 1.0 mmol/L (0.5-2.2)
[2025-06-13 05:02] LABS: Anion Gap 17.1 (5-19); Potassium 5.1 mmol/L (3.5-5.1)
[2025-06-13] MEDS: metoprolol tartrate 1 mg/1 mL SDV 5 mL 2.5 MG IVP (05:13)
--- NOTE | 2025-06-13 07:20 | P.PN_ITS ---
Subjective 2 Subjective: Patient is a very pleasant 74-year-old male seen and examined at bedside on hospital rounds today. Patient continues to have shortness of breath, new oxygen dependency, and body aches and weakness. Patient's daughter at the bedside feeding patient. Patient denies worsening symptoms but states that he just feels very unwell. Patient's daughter stated that [facility], they had a COVID outbreak there and now he is COVID- positive. Will continue antiviral with remdesivir, supportive therapies, and await PT/OT evaluation as is patient will need continued skilled level of care before returning home. Vital signs are stable blood pressure 150/71, pulse 72, respirations 20, temp 98.2 ?F, O2 sat 95% on 3 L/min of oxygen via nasal cannula. WBC 14.90, hemoglobin 10.00, creatinine improved 1.9, BUN 37. Pending repeat lactic acid. Vitals/I&O/Wt Last Vital Signs Temp 97.8 F 06/13/25 04:00 Pulse 86 06/13/25 04:00 Resp 24 H 06/13/25 04:00 BP 116/62 06/13/25 04:00 Pulse Ox 96 06/13/25 04:00 O2 Del Method Nasal Cannula 06/13/25 04:00 O2 Flow Rate 3 06/13/25 04:00 06/12/25 06/13/25 06/13/25 22:59 06:59 14:59 Intake Total 1900 / 1900 100 / 2000 Output Total 450 / 450 1300 / 1750 Balance 1450 / 1450 -1200 / 250 Weight last 48 hrs Weight 71.6 kg Weight 74.026 kg Weight 74 kg Weight 77.111 kg Physical Exam 2 Narrative: General: Ill-appearing 74-year-old male sitting up in bed, very weak, answering most questions appropriately, On 3 L nasal cannula HEENT: Normo-cephalic, atraumatic, grossly unremarkable exam Cardio: NSR, normal S1-S2 without any murmurs, rubs, or gallops and JVD normal Respiratory: Coarse bilaterally upper airway, diminished at the bases GI: Abd soft, non-tender, non-distended, normo-active bowel sounds present Neuro: Moves all extremities, no sensory deficits, Normal speech Behavior: Appropriate and cooperative Extremities: Weak. adequate palpable pulses. No clubbing, cyanosis or edema. Urinary Catheter Management: Franco: Cath Placed During This Visit: yes Reason for Continuing Indwelling Catheter: Acute Urinary Retention or Obstruction Urinary Catheter Date of Insertion: 06/12/25 Urinary Catheter Time of Insertion: 21:30 Data 06/13/25 04:10 06/13/25 04:10 Micro: Microbiology 06/12/25 13:43 Blood Culture - Preliminary Blood SPECIMEN COLLECTED 06/12/25 13:40 Blood Culture - Preliminary Blood SPECIMEN COLLECTED A&P Assessment and plan 1. COVID-19: 2. Acute kidney injury: 3. Hypoxemia: 4. Urinary tract infection: 5. Systolic CHF: 6. CAD (coronary artery disease): 7. Neuropathy of lower extremity: 8. PAD (peripheral artery disease): Plan: COVID+ Hypoxia AMS, Likely secondary to hypoxia, improving - 06/12: EKG 1447: NSR, no ST changes, QRS 110, QTc 436, HR 93 - 06/12: EKG 1323: NSR, no ST changes, QRS 98, QTc 418, HR 82 - 06/12: CXR: Reviewed and results as follows: Atherosclerosis. - Newly requiring 3L NC, titrate oxygen as indicated - Isolation precautions - Tessalon Perles as needed for cough - IVP Decadron 6 mg daily - Remdesivir 200mg IV bolus, continue maintenance doses of 100mg x 5days (EOT 06/16) - Continuous pulse oximetry, cardiac monitoring - Fall precautions, neurochecks UTI - UA positive for UTI - Urine cultures obtained, pending. - IV abx Rocephin 1000 mg dly - Renal US with no hydronephrosis or renal obstruction, normal-sized kidneys, normal distended urinary bladder. TREVON - Manager Neonatal 2.5--<1.9 - Received 1.5L bolus in ED - Keep MAP >65 - Monitor K and Phos closely. Tx as indicated. - Strict I&O's - Avoid nephrotoxins - CMP dly Increasing Weakness - Fall precautions, was walking with walker at baseline before recent illnesses - Pending PT/OT evaluation and recommenations - Will most likely need SNF level of care - Greatly appreciate Case management and coordination of services and discharge planning Ischemic cardiomyopathy Systolic CHF - Does not appear to be volume overloaded - Continue cardioprotective medications - Strict I's and O's, daily weights - Cardiac diet CAD HLD Hx of CABG - Lipid panel with triglycerides 106, cholesterol 128, LDL 63, HDL 44 - Continue home atorvastatin 80 mg PO dly -05/15/2025: There is total occlusion coronary artery disease with three vessel disease. Four coronary grafts visualized: three grafts patent, and one graft occluded. The apex, mid posterior, mid septum, anterolateral, mid inferior moore are hypokinetic. All other visualized moore normal. Mild left ventricular systolic dysfunction. Ejection fraction of 45%. - Serial EKGs, serial troponins, tolerated monitoring - Continue home medications of aspirin, Plavix, statin Hypotension - Continue home midodrine 10mg PO dly Seronegative rheumatoid arthritis - Resume home medication prednisone 5 mg p.o. daily after IVP Decadron completed CODE STATUS: Full code GI prophylaxis: Protonix 40 mg p.o. dly VTE prophylaxis: Heparin 5000u SC q12hr PDMP PDMP Reviewed: Not Reviewed Attestations 2 Medical Necessity Statement*: Admitted under inpatient status. Given complexity of patient's presentation, co- morbid conditions, and required intensity of treatment, a hospitalization exceeding two midnights is anticipated. Other Attestations: Patient case discussed with ED provider and reviewed and discussed with WILMAR including E&M. and High Time for a total of 55 minutes, includes reviewing past or interval history, examining/interviewing patient, placing orders, counseling patient/family/other support, updating patient/family/other support, discussing plan of care with staff, communicating with other healthcare providers, documenting encounter and coordinating care Diagnoses COVID-19 U07.1 Acute kidney injury N17.9 Hypoxemia R09.02 Urinary tract infection N39.0 Systolic CHF I50.20 CAD (coronary artery disease) I25.10 Neuropathy of lower extremity G57.90 PAD (peripheral artery disease) I73.9
--- NOTE | 2025-06-13 07:53 | PC.PHAR ---
[facility] 06/13/25 7:53am
[2025-06-13] MEDS: heparin 5,000 unit/mL INJ 1 mL 5000 UNIT SUBCUT (08:13)
--- NOTE | 2025-06-13 09:32 | PC.CHAP ---
Pastoral Care Encounter/Spiritual Assessment Type of Contact [] Declined senior portfolio manager visit [] Patient/Family/Request visit [] Outpatient visit [] Follow-up visit [] Physician referral [] Code/Alert [] Routine visit [] Staff referral [] Actively dying [] Patient sleeping [] Family support [] [] Out of room [] Palliative care [] [] Receiving care in room [] Pre-surgical visit [] Trauma [] Long length of stay [] ICU visit [x] Other:No visit. Contact precautions. Relational/Emotional Strength [] Patient feels connected with others/family/visitors/staff [] Distress [] Loneliness/isolation [] Abandonment Spirituality of Patient [] Person of Joselin [] Attends Cheondoism of their Joselin [] Believes in Prayer [] Reads Bible or Moravian materials [] There are Spiritual issues to be addressed Urologist Md Interventions [] Prayer [] Active listening [] Non-anxious presence [] Spiritual/emotional support [] Crisis/trauma care [] Spiritual counseling [] Bereavement support [] Provided bereavement packet [] Provided Bible/devotional materials [] Provided toy/stuffed animal, coloring book to patient or family member [] Provided Communion [] Anointing/[place] [] Salvation [] Completed spiritual assessment [] Other: Impact on Illness or Injury [] Angry [] Fearful [] Anxious [] Often cries [] Exhaustion [] Unable to work [] Unable to attend mu-ism [] Unable to walk/stand [] Unable to read [] Unable to drive [] Unable to eat/drink [] Unable to sleep [] Unable to be with family [] Patient intubated [] Other: Summary Time spent with patient
--- NOTE | 2025-06-13 10:12 | PC.PHAR ---
Faxed [place] medical records twice with no response. Phoned and spoke with [facility], who verified all medications. Unknown last taken.
[2025-06-13] MEDS: HYDROcodone-acetaminophen 5-325 mg Tablet 1 TAB PO ×4 (10:56→22:22)
--- NOTE | 2025-06-13 11:03 | PC.NURSE ---
Midodrine not given based on current BP as documented. Informed Flavia, PET GROOMER
[2025-06-13 11:39] LABS: Lactate (Lactic Acid level) 1.3 mmol/L (0.5-2.2)
--- NOTE | 2025-06-13 12:51 | PC.NURSE ---
Assisted patient up to chair per patient's request. Patient tolerated well and expressed thanks.
[2025-06-13] MEDS: cefTRIAXone 1,000 mg SDV 1000 MG IVP (17:49)
[2025-06-13] MEDS: ferrous sulfate EC 325 mg Tablet PO (17:50)
[2025-06-13] MEDS: remdesivir 100 MG in sodium chloride 0.9% (100 ml) 80 ML IV (17:50)
[2025-06-14] VITALS (7 sets, daily range): BP systolic 97–158; BP diastolic 46–100; PULSE 64–102; RESP 15–28; TEMP 36.6–37.2; O2SAT 93–96
--- NOTE | 2025-06-14 00:21 | ECG_ITS ---
[employer] [facility] Test Date: 2025-06-14 Pat Name: Gael Nevarez Department: Room: 104 Gender: Male Chrome Tanner: : 1950 Requested By: Haider Singh Order Number: [id number] Reading MD: SAMI LONDON Measurements Intervals [place] Rate: 78 P: 57 [place]: 163 QRS: 47 QRSD: 102 T: 77 QT: 375 QTc: 429 Interpretive Statements SINUS RHYTHM WITH FREQUENT VENTRICULAR PREMATURE COMPLEXES ABNORMAL RHYTHM ECG Compared to ECG 06/13/2025 03:16:23 No significant changes Electronically Signed On 06-19-2025 20:22:42 FIRE EXTINGUISHER CHARGER by SAMI LONDON [email or web address]
[2025-06-14 04:50] LABS: Hematocrit 29.5 % (37-53); Hemoglobin 9.20 g/dL (11.27-16.99); Mean Corpuscular HGB Conc 31.2 g/dL (30-55); Mean Corpuscular Hemoglobin 29.5 pg (27-33); Mean Corpuscular Volume 94.6 fl (82-101); Nucleated Red Blood Cells % 0 %; Platelet Count 143 10^3/cmm (157-399); Red Blood Count 3.12 10^6/uL (3.85-5.65); White Blood Count 10.98 10^3/uL (3.29-11.43)
[2025-06-14 05:10] LABS: Alanine Aminotransferase 9 U/L (0-41); Albumin Level 3.0 g/dL (3.5-5.2); Alkaline Phosphatase 61 U/L (40-130); Anion Gap 13.2 (5-19); Aspartate Amino Transferase 11 U/L (0-40); Blood Urea Nitrogen 38 mg/dL (8-23); Calcium 8.4 mg/dL (8.5-10.5); Carbon Dioxide 27 mmol/L (22-29); Chloride 107 mmol/L (98-107); Globulin 1.4 g/dL (1.3-4.6); Glucose 88 mg/dL (65-115); Magnesium 2.0 mg/dL (1.7-2.3); Osmolality Calculated 304 mOsm/kg (285-295); Potassium 4.2 mmol/L (3.5-5.1); Sodium 143 mmol/L (136-145); Total Protein 4.4 g/dL (6.6-8.7)
[2025-06-14] MEDS: HYDROcodone-acetaminophen 5-325 mg Tablet 1 TAB PO ×3 (05:46→20:49)
[2025-06-14] MEDS: ferrous sulfate EC 325 mg Tablet PO ×2 (05:47→16:19)
--- NOTE | 2025-06-14 07:18 | P.PN_ITS ---
Subjective 2 Subjective: Patient is a very pleasant 74-year-old male seen and examined at bedside on hospital rounds today. Patient sitting up in bed stating that he just feels tired, continues to have mild shortness of breath, denies new or worsening symptoms. PT/OT interventions continue, recommendations for SNF level of care. Greatly appreciate case management and coordination of discharge planning, pending authorization. Patient will complete remdesivir on 7-day 06/16/25. Review of vital signs, continues to have low blood pressure 97/46, pulse 87, respirations 28, temperature 98.9, O2 sat 93% on supplemental oxygen 2 L/min via nasal cannula. Vital signs normal WBC 10.98, hemoglobin 9.20, normal potassium 4.2, BUN 38, improved creatinine 1.4, normal magnesium 2.0. Vitals/I&O/Wt Last Vital Signs Temp 98.5 F 06/14/25 04:00 Pulse 84 06/14/25 04:00 Resp 24 H 06/14/25 04:00 BP 158/72 06/14/25 04:00 Pulse Ox 94 06/14/25 04:00 O2 Del Method Nasal Cannula 06/14/25 04:00 O2 Flow Rate 3 06/13/25 04:00 06/13/25 06/14/25 06/14/25 22:59 06:59 14:59 Intake Total 100 / 1200 1480 / 2680 Output Total 450 / 1400 600 / 2000 Balance -350 / -200 880 / 680 Weight last 48 hrs Weight 71.273 kg Weight 71.6 kg Weight 74.026 kg Weight 74 kg Weight 77.111 kg Physical Exam 2 Narrative: General: Ill-appearing 74-year-old male sitting up in bed, very weak, answering most questions appropriately, On 3 L nasal cannula HEENT: Normo-cephalic, atraumatic, grossly unremarkable exam Cardio: NSR, normal S1-S2 without any murmurs, rubs, or gallops and JVD normal Respiratory: Coarse bilaterally upper airway, diminished at the bases GI: Abd soft, non-tender, non-distended, normo-active bowel sounds present Neuro: Moves all extremities, no sensory deficits, Normal speech Behavior: Appropriate and cooperative Extremities: Weak. adequate palpable pulses. No clubbing, cyanosis or edema. Urinary Catheter Management: Franco: Cath Placed During This Visit: yes Reason for Continuing Indwelling Catheter: Acute Urinary Retention or Obstruction Urinary Catheter Date of Insertion: 06/12/25 Urinary Catheter Time of Insertion: 21:30 Data 06/14/25 04:05 06/14/25 04:05 Micro: Microbiology 06/12/25 13:43 Blood Culture - Preliminary Blood NEGATIVE TO DATE 06/12/25 13:40 Blood Culture - Preliminary Blood NEGATIVE TO DATE 06/12/25 14:27 Urine Culture - Preliminary Urine,Clean Catch Gram Negative Rods A&P Assessment and plan 1. COVID-19: 2. Acute kidney injury: 3. Hypoxemia: 4. Urinary tract infection: 5. Systolic CHF: 6. CAD (coronary artery disease): 7. Neuropathy of lower extremity: 8. PAD (peripheral artery disease): Plan: COVID+ Hypoxia AMS, Likely secondary to hypoxia, improving - 06/12: EKG 1447: NSR, no ST changes, QRS 110, QTc 436, HR 93 - 06/12: EKG 1323: NSR, no ST changes, QRS 98, QTc 418, HR 82 - 06/12: CXR: Reviewed and results as follows: Atherosclerosis. - Newly requiring 3L NC, titrate oxygen as indicated - Isolation precautions - Tessalon Perles as needed for cough - IVP Decadron 6 mg daily - Remdesivir 200mg IV bolus, continue maintenance doses of 100mg x 4 days (EOT 06/16) - Continuous pulse oximetry, cardiac monitoring - Fall precautions, neurochecks UTI - UA positive for UTI - Urine cultures obtained, pending. - IV abx Rocephin 1000 mg dly - Renal US with no hydronephrosis or renal obstruction, normal-sized kidneys, normal distended urinary bladder. TREVON - Telecommunications Network Engineer 2.5--<1.9--<1.4 - Received 1.5L bolus in ED - Keep MAP >65 - Monitor K and Phos closely. Tx as indicated. - Strict I&O's - Avoid nephrotoxins - CMP dly Increasing Weakness - Fall precautions, was walking with walker at baseline before recent illnesses - Appreciate PT/OT evaluation and recommenations - SNF authorization - Greatly appreciate Case management and coordination of services and discharge planning Ischemic cardiomyopathy Systolic CHF - Does not appear to be volume overloaded - Continue cardioprotective medications - Strict I's and O's, daily weights - Cardiac diet CAD HLD Hx of CABG - Lipid panel with triglycerides 106, cholesterol 128, LDL 63, HDL 44 - Continue home atorvastatin 80 mg PO dly -05/15/2025: There is total occlusion coronary artery disease with three vessel disease. Four coronary grafts visualized: three grafts patent, and one graft occluded. The apex, mid posterior, mid septum, anterolateral, mid inferior moore are hypokinetic. All other visualized moore normal. Mild left ventricular systolic dysfunction. Ejection fraction of 45%. - Serial EKGs, serial troponins, tolerated monitoring - Continue home medications of aspirin, Plavix, statin Hypotension - Continue home midodrine 10mg PO dly - Given 1L LR bolus overnight, continue LR 75mL/hr Seronegative rheumatoid arthritis - Resume home medication prednisone 5 mg p.o. daily after IVP Decadron completed CODE STATUS: Full code GI prophylaxis: Protonix 40 mg p.o. dly VTE prophylaxis: Heparin 5000u SC q12hr PDMP PDMP Reviewed: Not Reviewed Attestations 2 Medical Necessity Statement*: Admitted under inpatient status. Given complexity of patient's presentation, co- morbid conditions, and required intensity of treatment, a hospitalization exceeding two midnights is anticipated. Other Attestations: Patient case discussed with ED provider and reviewed and discussed with WILMAR including E&M. Coding Level of Care Code 05887 Diagnoses COVID-19 U07.1 Acute kidney injury N17.9 Hypoxemia R09.02 Urinary tract infection N39.0 Systolic CHF I50.20 CAD (coronary artery disease) I25.10 Neuropathy of lower extremity G57.90 PAD (peripheral artery disease) I73.9
--- NOTE | 2025-06-14 08:23 | PC.SOCIAL ---
IMM Updated Updated pt on IMM. No questions voiced. Provided pt a copy. Initialed, dated, & timed a copy & placed in chart.
[2025-06-14] MEDS: heparin 5,000 unit/mL INJ 1 mL 5000 UNIT SUBCUT ×2 (08:27→20:49)
[2025-06-14] MEDS: cefTRIAXone 1,000 mg SDV 1000 MG IVP (16:19)
[2025-06-14] MEDS: remdesivir 100 MG in sodium chloride 0.9% (100 ml) 80 ML IV (18:30)
[2025-06-15] VITALS (9 sets, daily range): BP systolic 108–134; BP diastolic 49–76; PULSE 67–84; RESP 13–21; TEMP 36.4–36.9; O2SAT 93–97
[2025-06-15 03:27] LABS: Hematocrit 27.8 % (37-53); Hemoglobin 8.60 g/dL (11.27-16.99); Mean Corpuscular HGB Conc 30.9 g/dL (30-55); Mean Corpuscular Hemoglobin 29.2 pg (27-33); Mean Corpuscular Volume 94.2 fl (82-101); Nucleated Red Blood Cells % 0 %; Platelet Count 144 10^3/cmm (157-399); Red Blood Count 2.95 10^6/uL (3.85-5.65); White Blood Count 6.64 10^3/uL (3.29-11.43)
[2025-06-15 03:41] LABS: Alanine Aminotransferase 9 U/L (0-41); Albumin Level 2.8 g/dL (3.5-5.2); Alkaline Phosphatase 69 U/L (40-130); Anion Gap 11.4 (5-19); Aspartate Amino Transferase 10 U/L (0-40); Blood Urea Nitrogen 38 mg/dL (8-23); Calcium 8.5 mg/dL (8.5-10.5); Carbon Dioxide 27 mmol/L (22-29); Chloride 106 mmol/L (98-107); Creatinine Clr Calc Pharmacy 57.6684; Globulin 2.1 g/dL (1.3-4.6); Glucose 89 mg/dL (65-115); Magnesium 1.9 mg/dL (1.7-2.3); Osmolality Calculated 299 mOsm/kg (285-295); Potassium 4.4 mmol/L (3.5-5.1); Sodium 140 mmol/L (136-145); Total Protein 4.9 g/dL (6.6-8.7)
[2025-06-15] MEDS: ferrous sulfate EC 325 mg Tablet PO ×2 (05:05→16:51)
[2025-06-15] MEDS: HYDROcodone-acetaminophen 5-325 mg Tablet 1 TAB PO ×5 (05:15→22:19)
--- NOTE | 2025-06-15 07:23 | PM.PN ---
Subjective Subjective: Patient is a very pleasant 74-year-old male seen and examined at bedside on hospital rounds today. Patient sitting up in bed eating breakfast, continues to state that he feels weak but improved shortness of breath. Patient now has noticeable dependent edema, fluids are currently held with a normal blood pressure of 132/67. Labs stable, WBC 6.64, RBC 2.95, hemoglobin 8.60, platelet 144, BUN 38, creatinine 1.1. Plan is to continue antiviral remdesivir through tomorrow and work on discharging to halfway on Tuesday. Patient states no other concerns or complaints at this time. Greatly appreciate case management and coordination of discharge planning. Vitals/I&O/Wt Last Vital Signs Temp 98.5 F 06/15/25 04:00 Pulse 67 06/15/25 04:00 Resp 13 06/15/25 04:00 BP 125/76 06/15/25 04:00 Pulse Ox 97 06/15/25 04:00 O2 Del Method Nasal Cannula 06/15/25 04:00 O2 Flow Rate 2 06/14/25 20:00 06/14/25 06/15/25 06/15/25 22:59 06:59 14:59 Intake Total 100 / 460 1000 / 1460 Output Total 1150 / 1150 Balance -1050 / -690 1000 / 310 Weight last 48 hrs Weight 71.273 kg Physical Exam Narrative: General: Ill-appearing 74-year-old male sitting up in bed, very weak, answering questions appropriately, On L nasal cannula HEENT: Normo-cephalic, atraumatic, grossly unremarkable exam Cardio: NSR, normal S1-S2 without any murmurs, rubs, or gallops and JVD normal Respiratory: Coarse bilaterally upper airway, diminished at the bases GI: Abd soft, non-tender, non-distended, normo-active bowel sounds present Neuro: Moves all extremities, no sensory deficits, Normal speech Behavior: Appropriate and cooperative Extremities: Weak. adequate palpable pulses. 1+ NELLY dep edema, No clubbing, cyanosis. Urinary Catheter Management: Franco: Cath Placed During This Visit: yes Reason for Continuing Indwelling Catheter: Other Urinary Catheter Date of Insertion: 06/12/25 Urinary Catheter Time of Insertion: 21:30 Data 06/15/25 03:02 06/15/25 03:02 Micro: Microbiology 06/12/25 14:27 Urine Culture - Final Urine,Clean Catch Escherichia coli A&P Assessment and plan 1. COVID-19: 2. Acute kidney injury: 3. Hypoxemia: 4. Urinary tract infection: 5. Systolic CHF: 6. CAD (coronary artery disease): 7. Neuropathy of lower extremity: 8. PAD (peripheral artery disease): Plan: COVID+ Hypoxia AMS, Likely secondary to hypoxia, improving - 06/12: EKG 1447: NSR, no ST changes, QRS 110, QTc 436, HR 93 - 06/12: EKG 1323: NSR, no ST changes, QRS 98, QTc 418, HR 82 - 06/12: CXR: Reviewed and results as follows: Atherosclerosis. - Newly requiring 3L NC, titrate oxygen as indicated - Isolation precautions - Tessalon Perles as needed for cough - IVP Decadron 6 mg daily - Remdesivir 200mg IV bolus, continue maintenance doses of 100mg x 4 days (EOT 06/16) - Continuous pulse oximetry, cardiac monitoring - Fall precautions, neurochecks UTI - UA positive for UTI - Urine culture with Escherichia coli - IV abx Rocephin 1000 mg dly, transition to oral abx at discharge - Renal US with no hydronephrosis or renal obstruction, normal-sized kidneys, normal distended urinary bladder. TREVON - Planimeter Operator 2.5--<1.9--<1.4--<1.1 - Received 1.5L bolus in ED - Keep MAP >65 - Monitor K and Phos closely. Tx as indicated. - Strict I&O's - Avoid nephrotoxins - CMP dly Increasing Weakness - Fall precautions, was walking with walker at baseline before recent illnesses - Appreciate PT/OT evaluation and recommenations - SNF authorization - Greatly appreciate Case management and coordination of services and discharge planning Ischemic cardiomyopathy Systolic CHF - Stable, CXR: Atherosclerosis - Continue cardioprotective medications, resume oral lasix and supplemental potassium - Strict I's and O's, daily weights - Cardiac diet CAD HLD Hx of CABG - Lipid panel with triglycerides 106, cholesterol 128, LDL 63, HDL 44 - Continue home atorvastatin 80 mg PO dly -05/15/2025: There is total occlusion coronary artery disease with three vessel disease. Four coronary grafts visualized: three grafts patent, and one graft occluded. The apex, mid posterior, mid septum, anterolateral, mid inferior moore are hypokinetic. All other visualized moore normal. Mild left ventricular systolic dysfunction. Ejection fraction of 45%. - Serial EKGs, serial troponins, tolerated monitoring - Continue home medications of aspirin, Plavix, statin Hypotension - Continue home midodrine 10mg PO dly - Given 1L LR bolus overnight, continue LR 75mL/hr Seronegative rheumatoid arthritis - Resume home medication prednisone 5 mg p.o. daily after IVP Decadron completed CODE STATUS: Full code GI prophylaxis: Protonix 40 mg p.o. dly VTE prophylaxis: Heparin 5000u SC q12hr PDMP PDMP Reviewed: Not Reviewed Attestations Medical Necessity Statement*: Admitted under inpatient status. Given complexity of patient's presentation, co-morbid conditions, and required intensity of treatment, a hospitalization exceeding two midnights is anticipated. Other Attestations: Patient case discussed with ED provider and reviewed and discussed with WILMAR including E&M. Coding Level of Care Code 71020 Diagnoses COVID-19 U07.1 Acute kidney injury N17.9 Hypoxemia R09.02 Urinary tract infection N39.0 Systolic CHF I50.20 CAD (coronary artery disease) I25.10 Neuropathy of lower extremity G57.90 PAD (peripheral artery disease) I73.9
[2025-06-15] MEDS: heparin 5,000 unit/mL INJ 1 mL 5000 UNIT SUBCUT ×2 (08:44→19:30)
[2025-06-15] MEDS: cefTRIAXone 1,000 mg SDV 1000 MG IVP (13:35)
[2025-06-15] MEDS: remdesivir 100 MG in sodium chloride 0.9% (100 ml) 80 ML IV (17:29)
[2025-06-15] MEDS: phenol oral Spray 177 mL 3 SPRAY MUCOUS MEM (23:58)
[2025-06-16] VITALS (7 sets, daily range): BP systolic 114–172; BP diastolic 55–79; PULSE 58–83; RESP 14–20; TEMP 36.2–36.7; O2SAT 89–94
[2025-06-16] MEDS: ferrous sulfate EC 325 mg Tablet PO ×2 (05:56→18:16)
[2025-06-16 08:54] LABS: Hematocrit 32.4 % (37-53); Hemoglobin 9.80 g/dL (11.27-16.99); Mean Corpuscular HGB Conc 30.2 g/dL (30-55); Mean Corpuscular Hemoglobin 28.9 pg (27-33); Mean Corpuscular Volume 95.6 fl (82-101); Nucleated Red Blood Cells % 0 %; Platelet Count 143 10^3/cmm (157-399); Red Blood Count 3.39 10^6/uL (3.85-5.65); White Blood Count 8.70 10^3/uL (3.29-11.43)
[2025-06-16 09:18] LABS: Alanine Aminotransferase 15 U/L (0-41); Albumin Level 3.0 g/dL (3.5-5.2); Alkaline Phosphatase 64 U/L (40-130); Anion Gap 15.3 (5-19); Aspartate Amino Transferase 18 U/L (0-40); Blood Urea Nitrogen 28 mg/dL (8-23); Calcium 8.9 mg/dL (8.5-10.5); Carbon Dioxide 23 mmol/L (22-29); Chloride 106 mmol/L (98-107); Globulin 2.3 g/dL (1.3-4.6); Glucose 121 mg/dL (65-115); Magnesium 1.8 mg/dL (1.7-2.3); Osmolality Calculated 297 mOsm/kg (285-295); Potassium 4.3 mmol/L (3.5-5.1); Sodium 140 mmol/L (136-145); Total Protein 5.3 g/dL (6.6-8.7)
[2025-06-16] MEDS: heparin 5,000 unit/mL INJ 1 mL 5000 UNIT SUBCUT ×2 (09:21→19:57)
[2025-06-16] MEDS: HYDROcodone-acetaminophen 5-325 mg Tablet 1 TAB PO ×4 (09:26→22:21)
--- NOTE | 2025-06-16 10:30 | PM.PN ---
Subjective Subjective: Patient is a very pleasant 74-year-old male seen and examined at bedside on hospital rounds this morning. Patient sitting up in bedside chair eating breakfast stating that he is breathing much better today. Patient states he has some edema in his feet but otherwise denies new or worsening symptoms. Patient will have his last dose of remdesivir this evening, [facility] if he remains medically stable. Vital signs this morning are very stable: Blood pressure 149/76, pulse 81, respirations 19, temperature 97.3, oxygen saturation 93% currently on room air was previously requiring 2 to 3 L of oxygen via nasal cannula. Review of labs hemoglobin stable 9.80, normal WBC 8.70, platelet 143, BUN 28, creatinine 0.8. Vitals/I&O/Wt Last Vital Signs Temp 97.3 F L 06/16/25 07:34 Pulse 81 06/16/25 07:34 Resp 19 H 06/16/25 07:34 BP 149/76 06/16/25 07:34 Pulse Ox 93 06/16/25 07:34 O2 Del Method Room Air 06/16/25 06:12 O2 Flow Rate 2 06/15/25 20:26 06/15/25 06/16/25 06/16/25 22:59 06:59 14:59 Intake Total 580 / 1060 300 / 1360 240 / 240 Output Total 750 / 1450 500 / 1950 Balance -170 / -390 -200 / -590 240 / 240 Weight last 48 hrs Weight 75.8 kg Physical Exam Narrative: General: Ill-appearing 74-year-old male sitting up at bedside chair, very weak, answering questions appropriately, HEENT: Normo-cephalic, atraumatic, grossly unremarkable exam Cardio: NSR, normal S1-S2 without any murmurs, rubs, or gallops and JVD normal Respiratory: Coarse bilaterally upper airway, diminished at the bases GI: Abd soft, non-tender, non-distended, normo-active bowel sounds present Neuro: Moves all extremities, no sensory deficits, Normal speech Behavior: Appropriate and cooperative Extremities: Weak. adequate palpable pulses. 1+ NELLY dep edema, No clubbing, cyanosis. Urinary Catheter Management: Franco: Cath Placed During This Visit: yes Reason for Continuing Indwelling Catheter: Accurate Measurement of Urinary Output in Critically Ill Patients Urinary Catheter Date of Insertion: 06/12/25 Urinary Catheter Time of Insertion: 21:30 Data 06/16/25 08:44 06/16/25 08:44 A&P Assessment and plan 1. COVID-19: 2. Acute kidney injury: 3. Hypoxemia: 4. Urinary tract infection: 5. Systolic CHF: 6. CAD (coronary artery disease): 7. Neuropathy of lower extremity: 8. PAD (peripheral artery disease): Plan: COVID+ Hypoxia AMS, Likely secondary to hypoxia, improving - 06/12: EKG 1447: NSR, no ST changes, QRS 110, QTc 436, HR 93 - 06/12: EKG 1323: NSR, no ST changes, QRS 98, QTc 418, HR 82 - 06/12: CXR: Reviewed and results as follows: Atherosclerosis. - Newly requiring 3L NC, titrate oxygen as indicated - Isolation precautions - Tessalon Perles as needed for cough - IVP Decadron 6 mg daily - Remdesivir 200mg IV bolus, continue maintenance doses of 100mg x 4 days (EOT 06/16) - Continuous pulse oximetry, cardiac monitoring - Fall precautions, neurochecks UTI - UA positive for UTI - Urine culture with Escherichia coli - IV abx Rocephin 1000 mg dly, transition to oral abx at discharge - Renal US with no hydronephrosis or renal obstruction, normal-sized kidneys, normal distended urinary bladder. TREVON, resolved - Moisture Meter Operator 2.5--<1.9--<1.4--<1.1--<0.8 - Received 1.5L bolus in ED - Keep MAP >65 - Monitor K and Phos closely. Tx as indicated. - Strict I&O's - Avoid nephrotoxins - CMP dly Increasing Weakness - Fall precautions, was walking with walker at baseline before recent illnesses - Appreciate PT/OT evaluation and recommendations - SNF authorization - Greatly appreciate Case management and coordination of services and discharge planning Ischemic cardiomyopathy Systolic CHF - Stable, CXR: Atherosclerosis - Continue cardioprotective medications, resume oral lasix and supplemental potassium - Strict I's and O's, daily weights - Cardiac diet CAD HLD Hx of CABG - Lipid panel with triglycerides 106, cholesterol 128, LDL 63, HDL 44 - Continue home atorvastatin 80 mg PO dly -05/15/2025: There is total occlusion coronary artery disease with three vessel disease. Four coronary grafts visualized: three grafts patent, and one graft occluded. The apex, mid posterior, mid septum, anterolateral, mid inferior moore are hypokinetic. All other visualized moore normal. Mild left ventricular systolic dysfunction. Ejection fraction of 45%. - Serial EKGs, serial troponins, tolerated monitoring - Continue home medications of aspirin, Plavix, statin Hypotension - Continue home midodrine 10mg PO dly - Given 1L LR bolus overnight, completed LR fluid hydration 06/15/2025 Seronegative rheumatoid arthritis - Resume home medication prednisone 5 mg p.o. daily after IVP Decadron completed CODE STATUS: Full code GI prophylaxis: Protonix 40 mg p.o. dly VTE prophylaxis: Heparin 5000u SC q12hr PDMP PDMP Reviewed: Not Reviewed Attestations Medical Necessity Statement*: Admitted under inpatient status. Given complexity of patient's presentation, co-morbid conditions, and required intensity of treatment, a hospitalization exceeding two midnights is anticipated. Coding Level of Care Code 11712 Diagnoses COVID-19 U07.1 Acute kidney injury N17.9 Hypoxemia R09.02 Urinary tract infection N39.0 Systolic CHF I50.20 CAD (coronary artery disease) I25.10 Neuropathy of lower extremity G57.90 PAD (peripheral artery disease) I73.9
[2025-06-16] MEDS: ondansetron 2 mg/ML SDV 2 mL 4 MG IVP (14:02)
[2025-06-16] MEDS: cefTRIAXone 1,000 mg SDV 1000 MG IVP (16:35)
[2025-06-16] MEDS: remdesivir 100 MG in sodium chloride 0.9% (100 ml) 80 ML IV (18:43)
[2025-06-17] VITALS: BP 158/95; PULSE 85; RESP 14; TEMP 36.6
[2025-06-17] MEDS: HYDROcodone-acetaminophen 5-325 mg Tablet 1 TAB PO ×3 (03:10→12:25)
[2025-06-17 03:33] LABS: Hematocrit 29.0 % (37-53); Hemoglobin 9.00 g/dL (11.27-16.99); Mean Corpuscular HGB Conc 31.0 g/dL (30-55); Mean Corpuscular Hemoglobin 28.6 pg (27-33); Mean Corpuscular Volume 92.1 fl (82-101); Nucleated Red Blood Cells % 0 %; Platelet Count 169 10^3/cmm (157-399); Red Blood Count 3.15 10^6/uL (3.85-5.65); White Blood Count 6.10 10^3/uL (3.29-11.43)
[2025-06-17 03:55] LABS: Alanine Aminotransferase 27 U/L (0-41); Albumin Level 3.1 g/dL (3.5-5.2); Alkaline Phosphatase 64 U/L (40-130); Anion Gap 12.4 (5-19); Aspartate Amino Transferase 31 U/L (0-40); Blood Urea Nitrogen 32 mg/dL (8-23); Calcium 8.7 mg/dL (8.5-10.5); Carbon Dioxide 30 mmol/L (22-29); Chloride 104 mmol/L (98-107); Globulin 1.9 g/dL (1.3-4.6); Glucose 95 mg/dL (65-115); Osmolality Calculated 301 mOsm/kg (285-295); Potassium 4.4 mmol/L (3.5-5.1); Sodium 142 mmol/L (136-145); Total Protein 5.0 g/dL (6.6-8.7)
[2025-06-17 04:00] VITALS: BP 160/78; PULSE 74; RESP 19; TEMP 36.6; O2SAT 95
[2025-06-17] MEDS: ferrous sulfate EC 325 mg Tablet PO (05:52)
[2025-06-17 07:44] VITALS: BP 114/66; PULSE 77; RESP 16; TEMP 36.6; O2SAT 90
[2025-06-17 08:00] VITALS: PULSE 66; O2SAT 95
[2025-06-17] MEDS: heparin 5,000 unit/mL INJ 1 mL 5000 UNIT SUBCUT (08:09)
--- NOTE | 2025-06-17 11:48 | PC.SOCIAL ---
IMM update pg 2 of IMM updated and reviewed w/ patient. Copy provided and copy dated, initialed and placed in chart.
[2025-06-17 12:00] VITALS: BP 119/56; PULSE 87; RESP 24; O2SAT 97
--- NOTE | 2025-06-17 16:10 | PC.OT ---
OT TREATMENT HELD TODAY DUE TO SCHEDULED PATIENT D/C TODAY
--- NOTE | 2025-06-17 16:50 | P.DS_ITS ---
Discharge Providers Date of Admission: 06/12/25 16:25 Date of Discharge: June 17, 2025 Attending Provider at Admission: Haider Singh Attending Provider at Discharge: Angel Canas MD Primary Care Provider: Mary Sahu MD Diagnoses at Discharge Discharge Diagnosis 1. COVID-19: 2. Acute kidney injury: 3. Hypoxemia: 4. Urinary tract infection: 5. Systolic CHF: 6. CAD (coronary artery disease): 7. Neuropathy of lower extremity: 8. PAD (peripheral artery disease): Reason for Visit Reason for Visit: Fever, Poss Sepsis Brief History: Gael Nevarez is a 74 year old male ischemic cardiomyopathy, systolic CHF, history of CABG, CAD, HTN, HLD, PAD, anemia and anxiety presents ED today w/ c/o increased weakness and SOB newly requiring 3L NC. Associated signs and symptoms of mild confusion, intermittent sharp lower abdominal pain, fevers. Patient denies headache, chest pain, palpitations, chest pain, changes in urinary and bowel habits, recent medication changes. Patient was in a rehab until 06/11/2025 then he was discharged due to insurance issues. Patient very weak during my evaluation and no family noted to be at bedside. Patient to be admitted as inpatient to hospitalist services for further medical management and care. Of notes patient was recently hospitalized from 05/16-05/27/25 for treatment of cellulitis, CHF, TREVON. While in ED he CBC, CMP, troponin series, BNP, CRP, lactic acid, procalcitonin, UA was collected, reviewed, and results as follows: WBC 16.26, Neut 14.36 RBC 3.67, Hgb 10.9, HCT 34.9, MPV 10.7. Na 139, K 5.3, osmo 299. Consulting Project Director 2.5, BUN 43, alk phos 94. Baseline troponin 56, 2-hour troponin 52.08, delta troponin T - 3.92, 6-hour troponin 54.67. BNP 1060. CRP 36.7, lactic acid 3.8, procalcitonin 0.43. UA positive for UTI. Flu/RSV/COVID swab obtained, positive for COVID. Blood cultures obtained, pending. While in ED patient received following medications: 1.5L NC bolus , Solu-Medrol 125 mg IVP, acetaminophen 1000 mg IV, meropenem 500 mg IVP, Zyvox 600 mg IV. Hospital Course Hospital Course Empiric antibiotic therapy was de-escalated, Franco catheter was removed and patient had no retention afterwards. Patient discharged home in stable condition, after supportive measures for acute COVID pneumonia. Physical Exam Const: COMMON NORMALS: patient oriented x3 and alert GENERAL APPEARANCE: cooperative ORIENTATION/CONSCIOUSNESS: Yes awake HENMT: COMMON NORMALS: oropharynx normal Neck/C-Spine: COMMON NORMALS: no JVD Resp: COMMON NORMALS: normal respiratory effort and clear to auscultation bilaterally AUSCULTATION: clear to auscultation bilaterally Cardio: COMMON NORMALS: no JVD, regular rhythm, S1 normal heart sound present, S2 normal heart sound present and No murmurs present (Cardio) RHYTHM: regular rhythm HEART SOUNDS: S1 normal heart sound present and S2 normal heart sound present GI: COMMON NORMALS: Normal to inspection, nondistended, normoactive bowel sounds present, Soft to palpation and non-tender PALPATION: Yes Soft to palpation Extremity: COMMON NORMALS: no joint enlargement and no pedal edema Neuro: COMMON NORMALS: patient oriented x3 and moves all extremities SEN SORIUM/ORIENTATION: Yes alert Skin: COMMON NORMALS: no rashes or lesions noted GENERAL SKIN EXAM: no rashes or lesions noted Urinary Catheter Management: Franco: Cath Placed During This Visit: yes, but has since been removed by the nurse Reason for Continuing Indwelling Catheter: Decision to DC Catheter Urinary Catheter Date of Insertion: 06/12/25 Urinary Catheter Time of Insertion: 21:30 Date Urinary Catheter Removed: 06/17/25 Time Urinary Catheter Discontinued: 15:35 Discharge Data Studies Completed and Pending Completed Studies During Hospitalization Category Date Time Status XR chest 1V portable [id number] Stat Exams 06/12/25 12:59 Completed US kidney bilateral with bladder [US renal BI w/PV Ultrasound 06/12/25 19:32 Completed bladder [id number]] Routine Pending at discharge Category Date Time Status Complete Blood Count w/Auto AM LABS Lab 06/18/25 04:00 Ordered Complete Blood Count w/Auto AM LABS Lab 06/19/25 04:00 Ordered Comprehensive Metabolic Panel AM LABS Lab 06/18/25 04:00 Ordered Comprehensive Metabolic Panel AM LABS Lab 06/19/25 04:00 Ordered Radiology Impressions Chest X-Ray 06/12/25 12:59 Impression: Atherosclerosis. Renal Ultrasound 06/12/25 19:32 IMPRESSION: 1. No hydronephrosis or renal obstruction. 2. Normal size kidneys. 3. Normally distended urinary bladder. Laboratory Results WBC 6.10 10^3/uL (3.29-11.43) 06/17/25 02:19 RBC 3.15 10^6/uL (3.85-5.65) L 06/17/25 02:19 Hgb 9.00 g/dL (11.27-16.99) L 06/17/25 02:19 Hct 29.0 % (37-53) L 06/17/25 02:19 MCV 92.1 fl (82-101) 06/17/25 02:19 MCH 28.6 pg (27-33) 06/17/25 02:19 MCHC 31.0 g/dL (30-55) 06/17/25 02:19 RDW 14.6 % (12.1-15.1) 06/17/25 02:19 Plt Count 169 10^3/cmm (157-399) 06/17/25 02:19 MPV 11.6 fL (7.4-10.4) H 06/17/25 02:19 Neut % (Auto) 68.4 % 06/17/25 02:19 Lymph % (Auto) 17.5 % 06/17/25 02:19 Levy % (Auto) 10.5 % 06/17/25 02:19 Eos % (Auto) 2.6 % 06/17/25 02:19 Baso % (Auto) 0.3 % 06/17/25 02:19 Neut # (Auto) 4.17 10^3/uL (1.8-7.7) 06/17/25 02:19 Lymph # (Auto) 1.1 10^3/uL (0.8-4.8) 06/17/25 02:19 Levy # (Auto) 0.6 10^3/uL (0.2-0.9) 06/17/25 02:19 Eos # (Auto) 0.2 10^3/uL (0.0-0.8) 06/17/25 02:19 Baso # (Auto) 0.0 10^3/uL (0.0-0.1) 06/17/25 02:19 Nucleated RBC % (auto) 0 % 06/17/25 02:19 Nucleated RBCs # 0.0 /100WBC 06/17/25 02:19 Sodium 142 mmol/L (136-145) 06/17/25 02:19 Potassium 4.4 mmol/L (3.5-5.1) 06/17/25 02:19 Chloride 104 mmol/L (98-107) 06/17/25 02:19 Carbon Dioxide 30 mmol/L (22-29) H 06/17/25 02:19 Anion Gap 12.4 (5-19) 06/17/25 02:19 BUN 32 mg/dL (8-23) H 06/17/25 02:19 Creatinine 1.0 mg/dL (0.7-1.2) 06/17/25 02:19 GFR Calculation Not Reportable 06/17/25 02:19 Glucose 95 mg/dL (65-115) 06/17/25 02:19 Calculated Osmolality 301 mOsm/kg (285-295) H 06/17/25 02:19 Lactic Acid 2.8 mmol/L (0.5-2.2) H 06/12/25 12:40 Lactic Acid (Sepsis) 3.8 mmol/L (0.5-2.2) H 06/12/25 15:38 Lactate 1.3 mmol/L (0.5-2.2) 06/13/25 11:10 Calcium 8.7 mg/dL (8.5-10.5) 06/17/25 02:19 Phosphorus 5.0 mg/dL (2.5-4.5) H 06/13/25 04:10 Magnesium 1.8 mg/dL (1.7-2.3) 06/16/25 08:44 Total Bilirubin 0.2 mg/dL (0.15-1.2) 06/17/25 02:19 AST 31 U/L (0-40) 06/17/25 02:19 ALT 27 U/L (0-41) 06/17/25 02:19 Alkaline Phosphatase 64 U/L (40-130) 06/17/25 02:19 Troponin T 5th Gen ng/L 48 ng/L (0-15) H 06/13/25 04:10 Troponin T Baseline 56 ng/L (0-15) H 06/12/25 12:40 Troponin T 60 Minute 52.08 ng/L (0-15) H 06/12/25 13:43 Delta Troponin T -3.92 ABS# (0-10) L 06/12/25 13:43 Troponin T Hi Sens 6Hr 54.67 ng/L (0-15) H 06/12/25 18:22 Troponin T Hi Sens 6Hr Delta -1.33 ng/L (0-12) L 06/12/25 18:22 C-Reactive Protein 36.7 mg/L (0.0-4.9) H 06/12/25 12:40 NT-Pro-B Natriuret Pep 1060 pg/mL (0-125) H 06/12/25 12:40 Total Protein 5.0 g/dL (6.6-8.7) L 06/17/25 02:19 Albumin 3.1 g/dL (3.5-5.2) L 06/17/25 02:19 Globulin 1.9 g/dL (1.3-4.6) 06/17/25 02:19 Triglycerides 106 mg/dL (0-150) 06/12/25 18:22 Cholesterol 128 mg/dL (0-200) 06/12/25 18:22 LDL Cholesterol, Calc 63 mg/dL (50-129) 06/12/25 18:22 HDL Cholesterol 44 mg/dL (60-100) L 06/12/25 18:22 LDL/HDL Ratio 1.43 RATIO (0.00-3.22) 06/12/25 18:22 Cholesterol/HDL Ratio 2.91 mg/dL (1.0-5.00) 06/12/25 18:22 Procalcitonin 0.43 ng/mL (0-0.5) 06/12/25 12:40 Urine Color Yellow (Yellow) 06/12/25 14:27 Urine Appearance Cloudy (CLEAR) A 06/12/25 14: Urine pH 5.0 (5-7) 06/12/25 14:27 Ur Specific [place] 1.011 (1.005-1.030) 06/12/25 14: Urine Protein 3+ (Negative) A 06/12/25 14: Urine Glucose (UA) Negative (Normal) 06/12/25 14: Urine Ketones Negative (Negative) 06/12/25 14:27 Urine Blood 1+ (Negative) A 06/12/25 14: Urine Nitrate Negative (Negative) 06/12/25 14: Urine Bilirubin Negative (Negative) 06/12/25 14: Urine Urobilinogen 0.2 mg/dL (Negative) 06/12/25 14:27 Ur Leukocyte Esterase 2+ (Negative) A 06/12/25 14: Urine RBC 0-2 /hpf (0-2) 06/12/25 14:27 Urine WBC >100 /hpf (0-5) H 06/12/25 14:27 Ur Squamous Epith Cells 0-5 /hpf (0-5) 06/12/25 14: Amorphous Sediment Not Reportable 06/12/25 14: Urine Bacteria 4+ /hpf (NONE) H 06/12/25 14: Hyaline Casts 35.98 /lpf 06/12/25 14:27 Influenza A (PCR) Negative (Negative) 06/12/25 12:40 Influenza Type B (PCR) Negative (Negative) 06/12/25 12:40 RSV (PCR) Negative (Negative) 06/12/25 12:40 SARS-CoV-2 (PCR) Positive (Negative) A 06/12/25 12:40 Vitals Last Vital Signs Temp 97.9 F 06/17/25 07:44 Pulse 87 06/17/25 12:00 Resp 24 H 06/17/25 12:00 BP 119/56 06/17/25 12:00 Pulse Ox 97 06/17/25 12:00 O2 Del Method Room Air 06/17/25 08:00 O2 Flow Rate 2 06/15/25 20:26 Discharge Plan Discharge Patient Disposition: Home Condition: Stable Prescriptions: Continued leflunomide 20 mg tablet 20 mg PO DAILY Qty: 90 1RF prednisone 5 mg tablet 5 mg PO DAILY Qty: 90 1RF pregabalin 150 mg capsule 150 mg PO BID Qty: 180 1RF (DME) hinged knee brace See Rx Instructions .Route .MEDSUPPLY Qty: 1 0RF Rx Instructions: As directed cilostazol 100 mg Tablet 100 mg PO BID clopidogrel 75 mg Tablet 75 mg PO DAILY pantoprazole 40 mg Tablet,Delayed Release (Dr/Ec) 40 mg PO QAM cholecalciferol (vitamin D3) 25 mcg (1,000 unit) Tablet 25 mcg PO DAILY sennosides [senna] 8.6 mg Tablet 8.6 mg PO DAILY PRN (Reason: Constipation) docusate sodium [Colace] 100 mg Capsule 100 mg PO BID midodrine 5 mg Tablet 10 mg PO Q6H Qty: 90 0RF aspirin 81 mg Tablet,Delayed Release (Dr/Ec) 81 mg PO DAILY Qty: 90 0RF potassium chloride 10 mEq capsule, extended release 10 meq PO DAILY Qty: 30 0RF isosorbide mononitrate 30 mg tablet extended release 24 hr 30 mg PO DAILY furosemide [Lasix] 40 mg tablet 40 mg PO QAM carvedilol 6.25 mg Tablet 3.125 mg PO BID Rx Instructions: must administer with a meal/food Discontinued ferrous sulfate 325 mg (65 mg iron) Tablet 325 mg PO BID No Action atorvastatin 80 mg Tablet 80 mg PO QPM Referrals: [facility] [Outside] Mary Sahu MD [Primary Care Provider, [facility]] - 06/24/25 11:30 am Discharge Diet: Usual diet Discharge Activity: Resume usual activity Patient Instructions: COVID-19 (Coronavirus Disease 2019) (DC), Opioid Safety, Patient Portal & Lesly Instructions Discharge Attestations Time Spent in Discharge Care*: greater than 30 min Quality Metrics Clinical Quality Measures [ No reported AMI, CVA or VTE this stay] Coding Level of Care Code 55685 Diagnoses COVID-19 U07.1 Acute kidney injury N17.9 Hypoxemia R09.02 Urinary tract infection N39.0 Systolic CHF I50.20 CAD (coronary artery disease) I25.10 Neuropathy of lower extremity G57.90 PAD (peripheral artery disease) I73.9
--- NOTE | 2025-06-17 17:03 | PC.NURSE ---
urinated in urinal with 100 mls. Scanned his bladder and their is only 15 cc volume scanned.
[2025-06-17 17:32] VITALS: BP 151/79; PULSE 71; O2SAT 96
== END 2025-06-17 17:46 | disposition home health service (06) | DRG 871 ==
LOC: ER 15:28 → CSU 16:25
PROVIDERS: Internal Medicine; Registered Nurse; Admitting Provider Internal Medicine; Emergency Provider Emergency Medicine; PCP Family Medicine; Visit Provider Internal Medicine
DX: A41.89 Other specified sepsis (principal); U07.1 COVID-19; I50.22 Chronic systolic (congestive) heart failure; N39.0 Urinary tract infection, site not specified; N17.9 Acute kidney failure, unspecified; E87.20 Acidosis, unspecified; I13.0 Hypertensive heart and chronic kidney disease with heart failure and stage 1 through stage 4 chronic kidney disease, or unspecified chronic kidney disease; I25.5 Ischemic cardiomyopathy; I25.10 Atherosclerotic heart disease of native coronary artery without angina pectoris; E78.5 Hyperlipidemia, unspecified; R09.02 Hypoxemia; G62.9 Polyneuropathy, unspecified; I95.9 Hypotension, unspecified; N18.9 Chronic kidney disease, unspecified; R41.82 Altered mental status, unspecified; M06.00 Rheumatoid arthritis without rheumatoid factor, unspecified site; I73.9 Peripheral vascular disease, unspecified; F41.9 Anxiety disorder, unspecified; Z95.1 Presence of aortocoronary bypass graft; Z79.899 Other long term (current) drug therapy; Z79.02 Long term (current) use of antithrombotics/antiplatelets; Z79.82 Long term (current) use of aspirin; Z98.84 Bariatric surgery status; Z90.49 Acquired absence of other specified parts of digestive tract; Z87.891 Personal history of nicotine dependence; Z91.81 History of falling
CPT/HCPCS: 36415; 51702; 51798; 71045; 76770; 76857; 80053; 80061; 81001; 83605; 83735; 83880; 84100; 84145; 84484; 85025; 86140; 87040; 87077; 87086; 87186; 87637; 93005; 94664; 96365; 96367; 96372; 96375; 97110; 97161; 97167; 97530; 99291; J0131; J0248; J0696; J1100; J1644; J2020; J2185; J2405; J2919; J3490; J7030; J7040; J7120; J9999